=== PATIENT | female | born 1945 | race African-American/Black ===

== ENCOUNTER 2017-04-10 15:03 | Inpatient (IN) | payer OTHER ==
[2017-04-10 15:12] VITALS: BMI 49.4
[2017-04-10] MEDS ORDERED: ACETAMINOPHEN 1000 MG/100 ML VIAL (NON FORMULARY) IVPB ONE (15:31)
[2017-04-10] MEDS ORDERED: ACETAMINOPHEN INJECTION 100 ML IVPB ONE (15:32)
[2017-04-10 15:45] LABS: HEMOGLOBIN 13.3 GM/dL (10.7-15.3); MCH 29.9 pg (25.7-33.7); MCHC 32.4 g/dl (32.0-36.0); MEAN CELL VOLUME 92.1 fl (80-96); MEAN PLT VOLUME 9.3 fl (7.5-11.1); PLATELET COUNT 188 K/MM3 (134-434); RBC 4.45 M/mm3 (3.60-5.2); WHITE BLOOD COUNT 28.4 K/mm3 (4.0-10.0)
[2017-04-10 15:46] LABS: VENOUS PC02 40.9 mmHg (38-52); VENOUS PH 7.45 (7.32-7.42); VENOUS PO2 31.9 mmHg (28-48)
[2017-04-10 16:10] LABS: CHLORIDE 100 mmol/L (98-107); POTASSIUM 3.7 mmol/L (3.5-5.1); SODIUM 139 mmol/L (136-145)
[2017-04-10 16:16] LABS: INR 2.17 (0.82-1.09); PROTHROMBIN TIME (PATIENT) 24.5 SEC (9.98-11.88)
[2017-04-10 16:19] LABS: ACTIVATED PTT 40.4 SECONDS (26.9-34.4)
[2017-04-10] MEDS ORDERED: PIPERACILLIN/TAZOB 4.5 GM/100 ML PRE-DOCKED IVPB ONE (16:19)
[2017-04-10] MEDS ORDERED: VANCOMYCIN 1,000 MG in DEXTROSE 5%-WATER - 250 ML IVPB ONE (16:19)
[2017-04-10 16:20] LABS: ALBUMIN 3.9 g/dl (3.4-5.0); ALK PHOS 87 U/L (45-117); ANION GAP 12 (8-16); BILIRUBIN,TOTAL 0.7 mg/dL (0.2-1.0); BLOOD UREA NITROGEN 20 mg/dL (7-18); CALCIUM 9.5 mg/dL (8.5-10.1); CO2 27 mmol/L (21-32); CREATININE 1.6 mg/dL (0.55-1.02); GLUCOSE,RANDOM 143 mg/dL (74-106); SGOT/AST 22 U/L (15-37); SGPT/ALT 24 U/L (12-78); TOT PROT 8.5 g/dl (6.4-8.2)
--- NOTE | 2017-04-10 17:00 | PDOC ---
Attending Attestation - Resident Resident Name: GustavoDhaval - ED Attending Attestation I have performed the following: I have examined & evaluated the patient, The case was reviewed & discussed with the resident, I agree w/resident's findings & plan, Exceptions are as noted - Physicial Exam PE: 04/10/17 18:21 Patient is somnolent, but easily arousable, morbidly obese, nontoxic appearing, febrile; nc, atr perrla, eomi + b/l ronchi sft, nt, nd +2 pit edema b/l, with multiple hyperpigmented lessions c/w kelloids - Medical Decision Making 04/10/17 18:23 Patient is a morbidly obese 71-year-old female with multiple Shahriar's who presents to the ER with lethargy associated with high fever. Patient's febrile and tachycardic on initial evaluation, normotensive, without meningeal signs. Patient is somnolent but easily arousable, patient is alert and oriented to self and place. Differential diagnoses includes sepsis versus influenza versus polypharmacy. Blood and urine cultures are been obtained. IV sediment has been administered. Chest x-ray reveals bilateral congestion which may represent atypical pneumonia. Patient is noted to be influenza be positive. CBC reveals significant leukocytosis of 28,000. Urinalysis reveals 18 wbc's per high-power field and is nitrite positive. Tamiflu and broad-spectrum antibiotics have been administered. Will admit for further evaluation and treatment. <Anjum Cazares - Last Filed: 04/10/17 18:20> - HPI HPI: 04/10/17 17:37 The patient is a 71 year old female with history of hypertension, hypothyroidism , atrial fibrillation, morbid obesity, who presents to the ED with her daughter complaining of fever, shortness of breath, and cough that began last night. She was noted to be generally weak and slow to answer questions, prompting her ED visit. Remainder of history limited secondary to clinical condition. Temperature was noted to be 105 on ED arrival. Selected Entries 04/10/17 15:09 Temperature 104.5 F H Pulse Rate 105 H Respiratory 20 Rate Blood Pressure 159/81 O2 Sat by Pulse 99 Oximetry (%) <Arlen Novak - Last Filed: 04/10/17 19:09>
[2017-04-10 17:06] LABS: PLATELET ESTIMATE ADEQUATE
[2017-04-10] MEDS ORDERED: VANCOMYCIN 1 GRAM (PRE-DOCKED) 1,000 MG/250 ML BAG IVPB ONE (17:06)
[2017-04-10] MEDS ORDERED: PIPERACILLIN/TAZOB 4.5 GM 4.5 GM/100 ML BAG IVPB ONE (17:06)
[2017-04-10] MEDS ORDERED: VANCOMYCIN IVPB ONE (17:27)
[2017-04-10] MEDS ORDERED: WATER IVPB ONE (17:27)
[2017-04-10] MEDS ORDERED: DEXTROSE 5% IVPB ONE (17:27)
[2017-04-10 17:50] LABS: URINE APPEARANCE SLCLOUDY; URINE BILIRUBIN NEGATIVE (NEGATIVE); URINE BLOOD 1+ (NEGATIVE); URINE COLOR YELLOW; URINE GLUCOSE (UA) NEGATIVE (NEGATIVE); URINE KETONE TRACE (NEGATIVE); URINE NITRITE POSITIVE (NEGATIVE)
[2017-04-10 18:07] LABS: URINE LEUK ESTERASE 1+ (NEGATIVE); URINE PROTEIN 1+ (NEGATIVE)
[2017-04-10 18:12] LABS: EPI CELLS RARE /HPF (FEW); URINE BACTERIA FEW /hpf (NONE SEEN); URINE MUCUS RARE
--- NOTE | 2017-04-10 18:22 | HP ---
Admitting History and Physical - Admission Chief Complaint: fever, weakness History of Present Illness: The patient is a 71 year old female with pmhx, HTN, Hypothyroid, A fib, morbid obesity who presented to the ED with daughter with complaints of fever, non productive cough since last night. Pt was unable to get off toilet and appeared weak per daughter as well as red in the face. Denies chest pain, sob. Pt states she feels sick, achy, and tired. ED temp: 105, IV tylenol given + Influenza B History Source: Patient, Family Member, Medical Record Limitations to Obtaining History: No Limitations - Past Medical History Cardiovascular: Yes: AFIB, HTN Endocrine: Yes: Hypothyroidism - Smoking History Smoking history: Former smoker Have you smoked in the past 12 months: No - Alcohol/Substance Use Hx Alcohol Use: No - Social History Usual Living Arrangement: Yes: With Child Home Medications - Allergies Allergies/Adverse Reactions: Allergies Allergy/AdvReac Type Severity Reaction Status Date / Time No Known Allergies Allergy Verified 04/10/17 15:09 - Home Medications Home Medications: Ambulatory Orders Amlodipine Besylate 5 mg PO DAILY 04/10/17 Levothyroxine Sodium [Synthroid] 200 mcg PO DAILY 04/10/17 Liothyronine Sodium [Cytomel] 5 mcg PO DAILY 04/10/17 Metoprolol Succinate [Toprol Xl] 25 mg PO DAILY 04/10/17 Rivaroxaban [Xarelto -] 20 mg PO HS 04/10/17 Review of Systems - Review of Systems Constitutional: reports: Fever, Weakness Eyes: reports: No Symptoms HENT: reports: No Symptoms Neck: reports: No Symptoms Cardiovascular: reports: No Symptoms Respiratory: reports: Cough Gastrointestinal: reports: No Symptoms Genitourinary: reports: No Symptoms Musculoskeletal: reports: No Symptoms Integumentary: reports: No Symptoms Neurological: reports: Other (somnolent) Endocrine: reports: No Symptoms Hematology/Lymphatic: reports: No Symptoms Psychiatric: reports: No Symptoms Physical Examination Vital Signs: Vital Signs Temperature 104.5 F H 04/10/17 15:42 Pulse Rate 105 H 04/10/17 15:42 Respiratory Rate 22 04/10/17 15:42 Blood Pressure 159/81 04/10/17 15:09 O2 Sat by Pulse Oximetry (%) 100 04/10/17 15:42 Constitutional: Yes: Well Nourished Eyes: Yes: Conjunctiva Clear HENT: Yes: Atraumatic Neck: Yes: Supple Cardiovascular: Yes: Pulse Irregular, Murmur, S1, S2 Respiratory: Yes: Diminished, On Nasal O2 Gastrointestinal: Yes: Normal Bowel Sounds, Soft, Abdomen, Obese Renal/: Yes: WNL Extremities: Yes: WNL Edema: Yes Edema: LLE: 1+, RLE: 1+ Integumentary: Yes: Venous Stasis Changes (bilateral) Neurological: Yes: Alert, Oriented, Cran Nerves II-XII Intact, Weakness Labs: CBC, BMP 04/10/17 15:35 04/10/17 15:41 Imaging - Results Chest X-ray: Report Reviewed, Image Reviewed (cardiomegaly, ? mild congestion) Problem List - Problems (1) Afib Code(s): I48.91 - UNSPECIFIED ATRIAL FIBRILLATION (2) HTN (hypertension) Code(s): I10 - ESSENTIAL (PRIMARY) HYPERTENSION (3) Hypothyroid Code(s): E03.9 - HYPOTHYROIDISM, UNSPECIFIED (4) Influenza B Code(s): J10.1 - FLU DUE TO OTH IDENT INFLUENZA VIRUS W OTH RESP MANIFEST (5) Sepsis Code(s): A41.9 - SEPSIS, UNSPECIFIED ORGANISM Assessment/Plan Assessment: 71 year old female admitted with fever, influenza b Plan: 1. Sepsis due to influzena b +/- underlying pna/UTI - Given zosyn in ED - Started tamiflu - Continue IVF - ID consulted 2. GEMMA - Continue IVF 3. A fib - Continue xaralto - metoprolol 25mg daily 4. Hypothyroid - Synthroid - Cytomel 5. DVT - On AC 6. HTN - Amlodipine 5mg daily Visit type - Emergency Visit Emergency Visit: Yes Care time: The patient presented to the Emergency Department on the above date and was hospitalized for further evaluation of their emergent condition. - New Patient This patient is new to me today: Yes Date on this admission: 04/10/17 - Critical Care Critical Care patient: No
--- NOTE | 2017-04-10 18:34 | PDOC ---
History of Present Illness - General Chief Complaint: SIRS, Suspected/Possible Stated Complaint: SICK/FEVER Time Seen by Provider: 04/10/17 15:35 History Source: Patient, Family Exam Limitations: Clinical Condition - History of Present Illness Initial Comments: 04/10/17 18:28 The patient is a 71F with a PMH of CHF, a-fib on xarelto, and hypothyroidism who presented with AMS and SOB. The patient is with her sister who provides the history. The sister states that the patient was well last night, then today was found at 1400 being altered, A&Ox0, and in respiratory distress. The patient had no complaints the night before and currently cannot provide any history 2/2 clinical condition. Past History - Past Medical History Allergies/Adverse Reactions: Allergies Allergy/AdvReac Type Severity Reaction Status Date / Time No Known Allergies Allergy Verified 04/10/17 15:09 Home Medications: Ambulatory Orders Amlodipine Besylate 5 mg PO DAILY 04/10/17 Levothyroxine Sodium [Synthroid] 200 mcg PO DAILY 04/10/17 Liothyronine Sodium [Cytomel] 5 mcg PO DAILY 04/10/17 Metoprolol Succinate [Toprol Xl] 25 mg PO DAILY 04/10/17 Rivaroxaban [Xarelto -] 20 mg PO HS 04/10/17 Cardiac Disorders: Yes (afib) COPD: No HTN: Yes Thyroid Disease: Yes (hypo) - Suicide/Smoking/Psychosocial Hx Smoking History: Former smoker Have you smoked in the past 12 months: No Information on smoking cessation initiated: No Hx Alcohol Use: No Drug/Substance Use Hx: No Substance Use Type: None Review of Systems - Review of Systems Able to Perform ROS?: No (clinical condition) Is the patient limited Estonian proficient: No *Physical Exam - Vital Signs Last Vital Signs Temp Pulse Resp BP Pulse Ox 104.5 F H 105 H 22 159/81 100 04/10/17 15:42 04/10/17 15:42 04/10/17 15:42 04/10/17 15:09 04/10/17 15:42 - Physical Exam Comments: 04/10/17 19:10 GENERAL: Well developed, morbidly obese. Not awake, unresponsive but mumbling. No in respiratory distress. HEENT: Normocephalic, atraumatic. Dry mucous membranes. No conjunctival pallor. Sclera are non-icteric. NECK: Supple. Full ROM. No JVD. CARDIOVASCULAR: Regular rate and rhythm. No murmurs, rubs, or gallops. PULMONARY: No evidence of respiratory distress. Coarse lung sounds b/l, only anterior lung gonzales auscultated 2/2 pt unresponsiveness. ABDOMINAL: Soft. Non-tender. Non-distended. No rebound or guarding. MUSCULOSKELETAL: Normal range of motion at all joints. EXTREMITIES: No cyanosis. No clubbing. 4+ edema in b/l LE. No calf tenderness. SKIN: Warm and dry. Normal capillary refill. No rashes. No jaundice. NEUROLOGICAL: Lethargic, not responding to questions. PSYCHIATRIC: Not cooperating 2/2 unresponsiveness. Heart Score/ECG Review #1 ECG reviewed & interpreted by me at: 15:35 General ECG Interpretation: Sinus Rhythm, Normal Rate, Normal Intervals, No acute ischemic changes Compared to previous ECG there are: Previous ECG unavail 04/10/17 19:18 Sinus tach 103 RI 160 QRS 88 QTc 455 No ischemic changes noted except for V6 ED Treatment Course - LABORATORY CBC & Chemistry Diagram: 04/10/17 15:35 04/10/17 15:41 - ADDITIONAL ORDERS Additional order review: Laboratory Results 04/10/17 04/10/17 04/10/17 17:40 16:40 15:41 PT with INR INR PTT (Actin FS) VBG pH POC VBG pCO2 POC VBG pO2 Mixed VBG HCO3 Sodium Potassium Chloride Carbon Dioxide Anion Gap BUN Creatinine Creat Clearance w eGFR Random Glucose Lactic Acid 2.0 Calcium Total Bilirubin AST ALT Alkaline Phosphatase Creatine Kinase Creatine Kinase Index CK-MB (CK-2) Troponin I Total Protein Albumin Urine Color Yellow Urine Appearance Slcloudy Urine pH 6.0 Ur Specific [place] 1.023 Urine Protein 1+ H Urine Glucose (UA) Negative Urine Ketones Trace H Urine Blood 1+ H Urine Nitrite Positive Urine Bilirubin Negative Urine Urobilinogen 2.0 H Ur Leukocyte Esterase 1+ H Urine WBC (Auto) 18 Urine RBC (Auto) 4 Ur Epithelial Cells Rare Urine Bacteria Few Urine Mucus Rare Blood Type O POSITIVE Antibody Screen Negative 04/10/17 04/10/17 04/10/17 15:41 15:41 15:41 PT with INR 24.50 H INR 2.17 H PTT (Actin FS) 40.4 H VBG pH 7.45 H POC VBG pCO2 40.9 POC VBG pO2 31.9 Mixed VBG HCO3 27.7 H Sodium 139 Potassium 3.7 Chloride 100 Carbon Dioxide 27 Anion Gap 12 BUN 20 H Creatinine 1.6 H Creat Clearance w eGFR 31.60 Random Glucose 143 H Lactic Acid Calcium 9.5 Total Bilirubin 0.7 AST 22 ALT 24 Alkaline Phosphatase 87 Creatine Kinase 212 H Creatine Kinase Index 0.4 CK-MB (CK-2) < 1.000 Troponin I < 0.02 Total Protein 8.5 H Albumin 3.9 Urine Color Urine Appearance Urine pH Ur Specific [place] Urine Protein Urine Glucose (UA) Urine Ketones Urine Blood Urine Nitrite Urine Bilirubin Urine Urobilinogen Ur Leukocyte Esterase Urine WBC (Auto) Urine RBC (Auto) Ur Epithelial Cells Urine Bacteria Urine Mucus Blood Type Antibody Screen 04/10/17 15:41 Influenza Types A,B Antigen (DEJA) - Final Nasopharyngeal Swab - Final 04/10/17 15:35 RBC 4.45 MCV 92.1 MCHC 32.4 RDW 14.0 MPV 9.3 Neutrophils % No Result Required. Lymphocytes % No Result Required. - Medications Given in the ED: ED Medications Discontinued Medications Generic Name Dose Route Start Last Admin Trade Name Freq PRN Reason Stop Dose Admin Acetaminophen 1,000 mg 04/10/17 15:31 04/10/17 15:43 Ofirmev Injection - IVPB 04/10/17 15:32 1,000 mg ONCE ONE Administration Vancomycin HCl 1,000 mg/ 250 mls @ 250 mls/hr 04/10/17 16:19 04/10/17 17:44 Dextrose IVPB 04/10/17 17:18 250 mls/hr ONCE ONE Administration Protocol Vancomycin HCl 830 mg/ 250 mls @ 250 mls/hr 04/10/17 17:27 04/10/17 17:44 Dextrose IVPB 04/10/17 18:26 Not Given ONCE ONE Protocol Piperacillin Sod/Tazobactam Sod 4.5 gm 04/10/17 16:19 04/10/17 17:44 Zosyn 4.5gm Ivpb (Pre-Docked) IVPB 04/10/17 16:20 4.5 gm ONCE ONE Administration Medical Decision Making - Medical Decision Making 04/10/17 19:20 The pt is a 71F who presented with AMS and fever with hx of CHF. Flu B positive with coarse breath sounds 2/2 to possible PNA on flu. Pt is severe sepsis. Septic protocol being followed. CXR showing cardiomegaly with possible mild congestion. Labs significant for increased WBC count 28.4. UA indicating UTI. Broad spectrum abx with tamiflu and 1 g IV tylenol given for fever control. Pt admitted to hospitalist for tele bed. Improved mentation on rexamination. Pt much more alert and can express her concerns to me that she is not feeling well, but is feeling better than when she first came in. Pt endorsed to hospitalist team. *DC/Admit/Observation/Transfer Diagnosis at time of Disposition: Severe sepsis - Discharge Dispostion Condition at time of disposition: Guarded Admit: Yes - Referrals - Patient Instructions - Post Discharge Activity
[2017-04-10] MEDS ORDERED: OSELTAMIVIR PHOSPHATE 75 MG CAPSULE ONE (20:53)
[2017-04-10] MEDS: SODIUM CHLORIDE 1,000 ML IV SCH (21:04)
[2017-04-10] MEDS: ACETAMINOPHEN 325 MG TABLET (FP) PO PRN (21:06)
[2017-04-10] MEDS: OSELTAMIVIR PHOSPHATE 75 MG CAPSULE PO SCH (21:06)
[2017-04-10] MEDS ORDERED: ACETAMINOPHEN 325 MG TABLET (FP) ONE (21:10)
[2017-04-10] MEDS ORDERED: SODIUM CHLORIDE 1,000 ML IV STA (22:09)
[2017-04-10] MEDS: RIVAROXABAN 20 MG TABLET PO SCH (22:49)
[2017-04-11] MEDS ORDERED: PIPERACILLIN/TAZOB 2.25 GM 2.25 GM/50 ML BAG IVPB SCH (02:00)
[2017-04-11] MEDS ORDERED: ACETAMINOPHEN 325 MG TABLET (FP) ONE (03:01)
[2017-04-11] MEDS: PIPERACILLIN/TAZOB 2.25 GM 2.25 GM in DEXTROSE 5%-WATER - 100 ML IVPB SCH ×4 (04:06→20:36)
[2017-04-11] MEDS ORDERED: ACETAMINOPHEN 500 MG TABLET (FP) PO ONE (04:07)
[2017-04-11 06:34] LABS: BASO % 0.1 % (0-2.0); HEMATOCRIT 35.5 % (32.4-45.2); HEMOGLOBIN 11.7 GM/dL (10.7-15.3); LYMPH % 6.1 % (8-40); MCH 30.6 pg (25.7-33.7); MEAN CELL VOLUME 92.9 fl (80-96); MEAN PLT VOLUME 9.7 fl (7.5-11.1); MONO % 6.5 % (3.8-10.2); NEUT % 87.3 % (42.8-82.8); PLATELET COUNT 172 K/MM3 (134-434); RBC 3.82 M/mm3 (3.60-5.2); RDW 14.4 % (11.6-15.6); WHITE BLOOD COUNT 19.4 K/mm3 (4.0-10.0)
[2017-04-11] MEDS ORDERED: LEVOTHYROXINE NA 200 MCG TABLET PO SCH (07:00)
[2017-04-11] MEDS ORDERED: LEVOTHYROXINE NA 25 MCG TABLET (FP) ONE (07:03)
[2017-04-11 07:32] LABS: ALBUMIN 2.9 g/dl (3.4-5.0); ANION GAP 8 (8-16); BLOOD UREA NITROGEN 28 mg/dL (7-18); CALCIUM 7.9 mg/dL (8.5-10.1); CHLORIDE 102 mmol/L (98-107); CO2 27 mmol/L (21-32); CREATININE 1.9 mg/dL (0.55-1.02); GLUCOSE,RANDOM 114 mg/dL (74-106); PHOSPHOROUS 3.7 mg/dL (2.5-4.9); POTASSIUM 3.3 mmol/L (3.5-5.1); SGOT/AST 20 U/L (15-37); SODIUM 137 mmol/L (136-145)
[2017-04-11 07:42] LABS: ALK PHOS 70 U/L (45-117); BILIRUBIN,TOTAL 0.7 mg/dL (0.2-1.0); SGPT/ALT 27 U/L (12-78); TOT PROT 6.6 g/dl (6.4-8.2)
[2017-04-11] MEDS ORDERED: amLODIPine BESYLATE 5 MG TABLET (FP) PO SCH (10:00)
[2017-04-11] MEDS ORDERED: metoPROLOL SUCCINATE 25 MG TAB.SR.24H (FP) PO SCH (10:00)
[2017-04-11] MEDS ORDERED: amLODIPine BESYLATE 5 MG TABLET (FP) ONE (10:03)
[2017-04-11] MEDS ORDERED: POTASSIUM CHLORIDE ORAL LIQUID 20 MEQ/15 ML PO ONE (10:22)
[2017-04-11] MEDS: LIOTHYRONINE SODIUM 5 MCG TABLET PO SCH (10:24)
[2017-04-11] MEDS: OSELTAMIVIR PHOSPHATE 75 MG CAPSULE PO SCH ×2 (11:00→21:02)
--- NOTE | 2017-04-11 11:31 | PN ---
Physical Exam: SUBJECTIVE: Patient seen and examined in ED. She appears much improved. Eating, conversing and very alert. Denies chills, body aches. Does remember having R sided back pain in days preceding last nights admission. Events: - LA resolved s/p bolus - Fever tmax 101.7 OBJECTIVE: Vital Signs Period Temp Pulse Resp BP Sys/Ray Pulse Ox Last 24 Hr 97.6 F-104.5 F 66-105 15-27 107-159/53-94 95-100 PE Neuro: alert, awake, cn 2-12intact Pulm: basilar crackles L>R + NC CV: s1 s2 rrr + 3/6 systolic murmur Abd: s nt nd + bs Ext: lower ext keloids, healed ulcerations Laboratory Results - last 24 hr 04/11/17 04/11/17 04/11/17 01:13 06:00 06:00 WBC 19.4 H D RBC 3.82 Hgb 11.7 D Hct 35.5 MCV 92.9 MCH 30.6 MCHC 33.0 RDW 14.4 Plt Count 172 MPV 9.7 Total Counted Neutrophils % 87.3 H Neutrophils % (Manual) Band Neutrophils % Lymphocytes % 6.1 L Lymphocytes % (Manual) Monocytes % 6.5 Monocytes % (Manual) Eosinophils % 0.0 Basophils % 0.1 Platelet Estimate PT with INR INR PTT (Actin FS) VBG pH POC VBG pCO2 POC VBG pO2 Mixed VBG HCO3 Sodium 137 Potassium 3.3 L Chloride 102 Carbon Dioxide 27 Anion Gap 8 BUN 28 H Creatinine 1.9 H Creat Clearance w eGFR 25.91 Random Glucose 114 H Lactic Acid 0.8 Calcium 7.9 L Phosphorus 3.7 Magnesium 2.0 Total Bilirubin 0.7 AST 20 ALT 27 Alkaline Phosphatase 70 Creatine Kinase Creatine Kinase Index CK-MB (CK-2) Troponin I B-Natriuretic Peptide Total Protein 6.6 Albumin 2.9 L Urine Color Urine Appearance Urine pH Ur Specific [place] Urine Protein Urine Glucose (UA) Urine Ketones Urine Blood Urine Nitrite Urine Bilirubin Urine Urobilinogen Ur Leukocyte Esterase Urine WBC (Auto) Urine RBC (Auto) Ur Epithelial Cells Urine Bacteria Urine Mucus Blood Type Antibody Screen 04/10/17 04/11/17 19:00 01:13 Lactic Acid 4.3 H* 0.8 Active Medications Generic Name Dose Route Start Last Admin Trade Name Freq PRN Reason Stop Dose Admin Acetaminophen 650 mg 02/07/18 18:31 04/10/17 21:06 Tylenol - PO 650 mg Q4H PRN Administration PAIN OR FEVER Amlodipine Besylate 5 mg 04/11/17 10:00 Norvasc - PO DAILY ALYSSA Sodium Chloride 1,000 mls @ 100 mls/hr 04/10/17 18:45 04/10/17 21:04 Normal Saline - IV 100 mls/hr ASDIR ALYSSA Administration Piperacillin Sod/Tazobactam 100 mls @ 200 mls/hr 04/11/17 02:00 04/11/17 04: 06 Sod 2.25 gm/ Dextrose IVPB 200 mls/hr Q8H-IV ALYSSA Administration Levothyroxine Sodium 200 mcg 04/11/17 07:00 04/11/17 07:08 Synthroid - PO 200 mcg DAILY@0700 ALYSSA Administration Liothyronine Sodium 5 mcg 04/11/17 10:00 04/11/17 10:24 Cytomel - PO Not Given DAILY ALYSSA Metoprolol Succinate 25 mg 04/11/17 10:00 Toprol Xl - PO DAILY ALYSSA Oseltamivir Phosphate 75 mg 04/10/17 22:00 04/10/17 21:06 Tamiflu - PO 04/15/17 21:59 75 mg BID ALYSSA Administration Potassium Chloride 40 meq 04/11/17 10:22 Potassium Chloride Oral Liquid PO 04/11/17 10:23 ONCE ONE Rivaroxaban 20 mg 04/10/17 22:00 04/10/17 22:49 Xarelto - PO 20 mg HS ALYSSA Administration Microbiology 04/10/17 15:41 Nasopharyngeal Swab Influenza Types A,B Antigen (DEJA) - Final 04/10/17 15:41 Nasopharyngeal Swab - Final Assessment: 71 year old female admitted with fever, influenza b Plan: 1. Severe Sepsis due to influzena b +/- underlying pna/UTI - Pt met severe sepsis on admission, LA increased to 4.3 - Continue zosyn (renal dose) - x 1 doses vanco given in ED - Continue tamiflu course - Blood and urine cx pending - CXR negative for definite infiltrate - Continue IVF 2. Lactic acidosis - Resolved - Continue IVF 3. GEMMA - Cr rise, however possibly due to sepsis - Will obtain kidney us - UA with proteinuria - Discontinue ambriz 4. HTN - Hold amlodipine 5mg daily, resume tomorrow 5. A fib - Continue xaralto 20gmg HS - Hold metoprolol 25mg day today, resume tomorrow 6. Hypothyroid - Synthroid 200mcg daily - Cytomel 5mg daily 7. DVT - On AC Problem List - Problems (1) Afib Code(s): I48.91 - UNSPECIFIED ATRIAL FIBRILLATION (2) HTN (hypertension) Code(s): I10 - ESSENTIAL (PRIMARY) HYPERTENSION (3) Hypothyroid Code(s): E03.9 - HYPOTHYROIDISM, UNSPECIFIED (4) Influenza B Code(s): J10.1 - FLU DUE TO OTH IDENT INFLUENZA VIRUS W OTH RESP MANIFEST (5) Sepsis Code(s): A41.9 - SEPSIS, UNSPECIFIED ORGANISM Visit type - Emergency Visit Emergency Visit: Yes ED Registration Date: 04/10/17 Care time: The patient presented to the Emergency Department on the above date and was hospitalized for further evaluation of their emergent condition. - New Patient This patient is new to me today: No - Critical Care Critical Care patient: No
--- NOTE | 2017-04-11 12:06 | EKG ---
Test Reason : Blood Pressure : / mmHG Vent. Rate : 103 BPM Atrial Rate : 103 BPM P-R Int : 160 ms QRS Dur : 088 ms QT Int : 348 ms P-R-T Axes : 080 -03 096 degrees QTc Int : 455 ms SINUS TACHYCARDIA T WAVE ABNORMALITY, CONSIDER LATERAL ISCHEMIA ABNORMAL ECG WHEN COMPARED WITH ECG OF 10-APR-2017 15:08, NO SIGNIFICANT CHANGE WAS FOUND Confirmed by GAYLE BROTHERS, VALENTINA ([id number]) on 04/11/2017 12:06:32 PM Referred By: Confirmed By:VALENTINA ARAUJO MD
[2017-04-11] MEDS ORDERED: PIPERACILLIN/TAZOBACTAM 2.25 GM VIAL IVPB ONE (12:34)
[2017-04-11] MEDS ORDERED: POTASSIUM CHLORIDE ORAL LIQUID 20 MEQ/15 ML ONE (12:41)
--- NOTE | 2017-04-11 13:46 | CON.ID ---
Consult Consult Specialty:: infectious diseases Reason for Consultation:: weakness pna leukocytosis,flu - History of Present Illness Chief Complaint: weakness,lethargy cough History of Present Illness: 71 year old female with pmhx, HTN, Hypothyroid, A fib, morbid obesity who presented to the ED with daughter with complaints of fever, non productive cough since last night. according to the daughter patient was unable to get off toilet . Denies chest pain, sob. patient mentions that all the symptoms occurred suddenly according to the notes,patient was very sick yesterday,now the patient looks better still is sick apperaing on admission patients wbc was very high she was also flu positive she also came in wiht high lactic acid and renal failure - History Source History Provided By: Patient, Family Member Limitations to Obtaining History: No Limitations - Past Medical History Cardio/Vascular: Yes: AFIB, HTN Endocrine: Yes: Hypothyroidism - Alcohol/Substance Use Hx Alcohol Use: No - Smoking History Smoking history: Former smoker Have you smoked in the past 12 months: No Home Medications - Allergies Allergies/Adverse Reactions: Allergies Allergy/AdvReac Type Severity Reaction Status Date / Time No Known Allergies Allergy Verified 04/10/17 15:09 - Home Medications Home Medications: Ambulatory Orders Amlodipine Besylate 10 mg PO HS 04/10/17 Levothyroxine Sodium [Synthroid] 200 mcg PO DAILY 04/10/17 Liothyronine Sodium [Cytomel] 5 mcg PO DAILY 04/10/17 Metoprolol Succinate [Toprol Xl] 25 mg PO DAILY 04/10/17 Rivaroxaban [Xarelto -] 20 mg PO HS 04/10/17 Review of Systems - Review of Systems Constitutional: reports: Fever, Lethargy, Weakness Eyes: reports: No Symptoms HENT: reports: No Symptoms Neck: reports: No Symptoms Cardiovascular: reports: No Symptoms Respiratory: reports: Cough, SOB on Exertion Gastrointestinal: reports: No Symptoms Genitourinary: reports: No Symptoms Musculoskeletal: reports: No Symptoms Integumentary: reports: No Symptoms Neurological: reports: No Symptoms Endocrine: reports: No Symptoms Hematology/Lymphatic: reports: No Symptoms Psychiatric: reports: No Symptoms Physical Exam Vital Signs: Vital Signs Temperature 99.1 F 04/11/17 12:30 Pulse Rate 81 04/11/17 12:30 Respiratory Rate 16 04/11/17 12:30 Blood Pressure 147/64 04/11/17 12:30 O2 Sat by Pulse Oximetry (%) 100 04/11/17 12:30 Constitutional: Yes: No Distress, Calm, Obese Eyes: Yes: Conjunctiva Clear Neck: Yes: Supple, Trachea Midline Cardiovascular: Yes: Regular Rate and Rhythm Respiratory: Yes: Rhonchi, Other (crack;es) Gastrointestinal: Yes: Normal Bowel Sounds, Soft Musculoskeletal: Yes: WNL Extremities: Yes: WNL Neurological: Yes: Alert, Oriented Psychiatric: Yes: Alert, Oriented Labs: CBC, BMP 04/11/17 06:00 04/11/17 06:00 Imaging - Results Chest X-ray: Report Reviewed, Image Reviewed Assessment/Plan this patient with severe weakness and arf and influenz admitted with very high wbc after lookng at her imaging studies i am not worried about pna,but i do suspect some other infection giving rise to this high wbc leukocytosis fever weakness influenza b arf plan will start patient on abx await for all cx report hydration tamiflu isolation rest as per primary team
[2017-04-11] MEDS: ACETAMINOPHEN 325 MG TABLET (FP) PO PRN (19:53)
[2017-04-11] MEDS: SODIUM CHLORIDE 1,000 ML IV SCH (19:53)
[2017-04-11] MEDS: RIVAROXABAN 20 MG TABLET PO SCH (21:52)
[2017-04-12] MEDS: PIPERACILLIN/TAZOB 2.25 GM 2.25 GM in DEXTROSE 5%-WATER - 100 ML IVPB SCH ×3 (02:35→17:36)
[2017-04-12] MEDS: LEVOTHYROXINE NA 100 MCG TABLET (FP) PO SCH (06:20)
[2017-04-12 08:49] LABS: BASO % 0.2 % (0-2.0); EOS % 0.3 % (0-4.5); HEMATOCRIT 35.6 % (32.4-45.2); HEMOGLOBIN 11.2 GM/dL (10.7-15.3); LYMPH % 9.9 % (8-40); MCH 29.5 pg (25.7-33.7); MCHC 31.5 g/dl (32.0-36.0); MEAN CELL VOLUME 93.7 fl (80-96); MEAN PLT VOLUME 9.4 fl (7.5-11.1); MONO % 7.9 % (3.8-10.2); NEUT % 81.7 % (42.8-82.8); PLATELET COUNT 158 K/MM3 (134-434); RDW 14.5 % (11.6-15.6); WHITE BLOOD COUNT 18.5 K/mm3 (4.0-10.0)
[2017-04-12] MEDS: SODIUM CHLORIDE 1,000 ML IV SCH ×2 (09:00→10:34)
[2017-04-12 09:06] LABS: ANION GAP 8 (8-16); BLOOD UREA NITROGEN 16 mg/dL (7-18); CALCIUM 8.8 mg/dL (8.5-10.1); CHLORIDE 103 mmol/L (98-107); CO2 29 mmol/L (21-32); CREATININE 1.2 mg/dL (0.55-1.02); GLUCOSE,RANDOM 113 mg/dL (74-106); POTASSIUM 3.8 mmol/L (3.5-5.1); SODIUM 140 mmol/L (136-145)
[2017-04-12] MEDS ORDERED: PT OWN MED DRAWER 7, Y5N ONE ×3 (10:25→20:55)
[2017-04-12] MEDS: OSELTAMIVIR PHOSPHATE 75 MG CAPSULE PO SCH ×2 (10:33→20:59)
[2017-04-12] MEDS: LIOTHYRONINE SODIUM 5 MCG TABLET PO SCH (10:39)
[2017-04-12] MEDS: POLYETHYLENE GLYCOL 3350 119 GM BTL PO SCH (14:06)
[2017-04-12] MEDS ORDERED: SODIUM CHLORIDE 1,000 ML IV SCH (14:28)
--- NOTE | 2017-04-12 14:30 | PN ---
Physical Exam: SUBJECTIVE: Patient seen and examined. She doesn't feel as well today, however better than admission. + BM OBJECTIVE: Vital Signs Period Temp Pulse Resp BP Sys/Ray Pulse Ox Last 24 Hr 98.4 F-101.2 F 63-84 18-20 131-139/66-81 96-99 PE Neuro: alert, awake, cn 2-12intact Pulm: L base diminished, R clear, scattered crackles CV: s1 s2 rrr + 3/6 systolic murmur Abd: s nt nd + bs Ext: lower ext keloids, healed ulcerations Laboratory Results - last 24 hr 04/12/17 04/12/17 07:30 07:30 WBC 18.5 H RBC 3.80 Hgb 11.2 Hct 35.6 MCV 93.7 MCH 29.5 MCHC 31.5 L RDW 14.5 Plt Count 158 MPV 9.4 Neutrophils % 81.7 Lymphocytes % 9.9 D Monocytes % 7.9 Eosinophils % 0.3 D Basophils % 0.2 Sodium 140 Potassium 3.8 Chloride 103 Carbon Dioxide 29 Anion Gap 8 BUN 16 Creatinine 1.2 H Random Glucose 113 H Calcium 8.8 Active Medications Generic Name Dose Route Start Last Admin Trade Name Freq PRN Reason Stop Dose Admin Acetaminophen 650 mg 04/10/17 18:31 04/11/17 19:53 Tylenol - PO 650 mg Q4H PRN Administration PAIN OR FEVER Amlodipine Besylate 5 mg 04/11/17 10:00 Norvasc - PO DAILY ALYSS[facility] Piperacillin Sod/Tazobactam 100 mls @ 200 mls/hr 04/11/17 02:00 04/12/17 10: 33 Sod 2.25 gm/ Dextrose IVPB 200 mls/hr Q8H-IV ALYSSA Administration Sodium Chloride 1,000 mls @ 75 mls/hr 04/12/17 08:33 04/12/17 10:34 Normal Saline - IV 75 mls/hr ASDIR AL[facility]SSA Administration Levothyroxine Sodium 200 mcg 04/12/17 07:00 04/12/17 06:20 Synthroid - PO 200 mcg DAILY@0700 ALYSSA Administration Liothyronine Sodium 5 mcg 04/11/17 10:00 04/12/17 10:39 Cytomel - PO Not Given DAILY ALYSSA Metoprolol Succinate 25 mg 04/11/17 10:00 Toprol Xl - PO DAILY ALYSSA Oseltamivir Phosphate 75 mg 04/10/17 22:00 04/12/17 10:33 Tamiflu - PO 04/15/17 21:59 75 mg BID ALYSSA Administration Polyethylene Glycol 17 gm 04/12/17 13:45 04/12/17 14:06 Miralax (For Daily Use) - PO Not Given DAILY ALYSSA Rivaroxaban 20 mg 04/10/17 22:00 04/11/17 21:52 Xarelto - PO 20 mg HS ALYSSA Administration Microbiology 04/10/17 17:30 Urine - Urine Clean Catch Urine Culture - Preliminary Lactose Fermenting Neg Bacilli 04/10/17 15:35 Blood - Peripheral Venous Blood Culture - Preliminary NO GROWTH OBTAINED AFTER 24 HOURS, INCUBATION TO CONTINUE FOR 4 DAYS. 04/10/17 15:35 Blood - Peripheral Venous Blood Culture - Preliminary NO GROWTH OBTAINED AFTER 24 HOURS, INCUBATION TO CONTINUE FOR 4 DAYS. 04/10/17 15:41 Nasopharyngeal Swab Influenza Types A,B Antigen (DEJA) - Final 04/10/17 15:41 Nasopharyngeal Swab - Final Assessment: 71 year old female admitted with fever, influenza b Plan: 1. Severe Sepsis due to influenza b +/- underlying pna/UTI - Continue zosyn (renal dose) - Continue tamiflu course - BC NGTD - Urine cx pending 2. Lactic acidosis - Resolved 3. GEMMA - Cr improved - Continue IVF, can stop tomorrow - Kidney us reviewed - UA with proteinuria 4. HTN - Resume amlodipine 5mg daily 5. A fib - Xaralto 20mg HS - Resume metoprolol 25mg day today 6. Hypothyroid - Synthroid 200mcg daily - Cytomel 5mg daily 7. DVT - On AC Problem List - Problems (1) Afib Code(s): I48.91 - UNSPECIFIED ATRIAL FIBRILLATION (2) HTN (hypertension) Code(s): I10 - ESSENTIAL (PRIMARY) HYPERTENSION (3) Hypothyroid Code(s): E03.9 - HYPOTHYROIDISM, UNSPECIFIED (4) Influenza B Code(s): J10.1 - FLU DUE TO OTH IDENT INFLUENZA VIRUS W OTH RESP MANIFEST (5) Sepsis Code(s): A41.9 - SEPSIS, UNSPECIFIED ORGANISM Visit type - Emergency Visit Emergency Visit: Yes ED Registration Date: 04/10/17 Care time: The patient presented to the Emergency Department on the above date and was hospitalized for further evaluation of their emergent condition. - New Patient This patient is new to me today: No - Critical Care Critical Care patient: No
--- NOTE | 2017-04-12 14:59 | PN ---
Progress Note, Physician History of Present Illness: still very weak calm wbc trending down - Current Medication List Current Medications: Active Medications Acetaminophen (Tylenol -) 650 mg PO Q4H PRN PRN Reason: PAIN OR FEVER Last Admin: 04/11/17 19:53 Dose: 650 mg Amlodipine Besylate (Norvasc -) 5 mg PO DAILY [facility] Piperacillin Sod/Tazobactam (Sod 2.25 gm/ Dextrose) 100 mls @ 200 mls/hr IVPB Q8H-IV [facility] Last Admin: 04/12/17 10:33 Dose: 200 mls/hr Sodium Chloride (Normal Saline -) 1,000 mls @ 60 mls/hr IV ASDIR [facility] Last Admin: 04/12/17 14:40 Dose: Not Given Levothyroxine Sodium (Synthroid -) 200 mcg PO DAILY@0700 [facility] Last Admin: 04/12/17 06:20 Dose: 200 mcg Liothyronine Sodium (Cytomel -) 5 mcg PO DAILY [facility] Last Admin: 04/12/17 10:39 Dose: Not Given Metoprolol Succinate (Toprol Xl -) 25 mg PO DAILY [facility] Oseltamivir Phosphate (Tamiflu -) 75 mg PO BID [facility] Stop: 04/15/17 21:59 Last Admin: 04/12/17 10:33 Dose: 75 mg Polyethylene Glycol (Miralax (For Daily Use) -) 17 gm PO DAILY [facility] Last Admin: 04/12/17 14:06 Dose: Not Given Rivaroxaban (Xarelto -) 20 mg PO HS [facility] Last Admin: 04/11/17 21:52 Dose: 20 mg - Objective Vital Signs: Vital Signs Temperature 98.4 F 04/12/17 10:00 Pulse Rate 83 04/12/17 08:00 Respiratory Rate 18 04/12/17 08:00 Blood Pressure 139/66 04/12/17 08:00 O2 Sat by Pulse Oximetry (%) 96 04/12/17 09:00 Constitutional: Yes: No Distress, Calm Cardiovascular: Yes: Regular Rate and Rhythm Respiratory: Yes: Regular, Other (crackles) Gastrointestinal: Yes: Normal Bowel Sounds, Soft Musculoskeletal: Yes: WNL Extremities: Yes: WNL Neurological: Yes: Alert, Oriented Psychiatric: Yes: Alert, Oriented Labs: CBC, BMP 04/12/17 07:30 04/12/17 07:30 INR, PTT INR 2.17 (0.82-1.09) H 04/10/17 15:41 Assessment/Plan patient also ahs uti leukocytosis fever weakness influenza b arf uti plan continue abx hydration await for identification of bacteria rest as per primary team
[2017-04-12] MEDS: amLODIPine BESYLATE 5 MG TABLET (FP) PO SCH (18:53)
[2017-04-12] MEDS: metoPROLOL SUCCINATE 25 MG TAB.SR.24H (FP) PO SCH (18:53)
[2017-04-12] MEDS: RIVAROXABAN 20 MG TABLET PO SCH (20:59)
[2017-04-13] MEDS ORDERED: PT OWN MED DRAWER 7, Y5N ONE ×4 (01:58→21:12)
[2017-04-13] MEDS: PIPERACILLIN/TAZOB 2.25 GM 2.25 GM in DEXTROSE 5%-WATER - 100 ML IVPB SCH ×2 (02:02→11:04)
[2017-04-13] MEDS: LIOTHYRONINE SODIUM 5 MCG TABLET PO SCH (06:26)
[2017-04-13] MEDS: LEVOTHYROXINE NA 100 MCG TABLET (FP) PO SCH (06:26)
[2017-04-13] MEDS: amLODIPine BESYLATE 5 MG TABLET (FP) PO SCH ×2 (11:00→11:04)
[2017-04-13] MEDS: POLYETHYLENE GLYCOL 3350 119 GM BTL PO SCH (11:04)
[2017-04-13] MEDS: OSELTAMIVIR PHOSPHATE 75 MG CAPSULE PO SCH ×2 (11:04→21:17)
[2017-04-13] MEDS: metoPROLOL SUCCINATE 25 MG TAB.SR.24H (FP) PO SCH (11:04)
--- NOTE | 2017-04-13 13:05 | PN ---
Progress Note, Physician History of Present Illness: still very weak no other complaints - Current Medication List Current Medications: Active Medications Acetaminophen (Tylenol -) 650 mg PO Q4H PRN PRN Reason: PAIN OR FEVER Last Admin: 04/11/17 19:53 Dose: 650 mg Amlodipine Besylate (Norvasc -) 5 mg PO DAILY [facility] Last Admin: 04/13/17 11:04 Dose: 5 mg Piperacillin Sod/Tazobactam (Sod 2.25 gm/ Dextrose) 100 mls @ 200 mls/hr IVPB Q8H-IV [facility] Last Admin: 04/13/17 11:04 Dose: 200 mls/hr Sodium Chloride (Normal Saline -) 1,000 mls @ 60 mls/hr IV ASDIR [facility] Last Admin: 04/12/17 14:40 Dose: Not Given Levothyroxine Sodium (Synthroid -) 200 mcg PO DAILY@0700 [facility] Last Admin: 04/13/17 06:26 Dose: 200 mcg Liothyronine Sodium (Cytomel -) 5 mcg PO DAILY@0700 [facility] Last Admin: 04/13/17 06:26 Dose: 5 mcg Metoprolol Succinate (Toprol Xl -) 25 mg PO DAILY [facility] Last Admin: 04/13/17 11:04 Dose: 25 mg Oseltamivir Phosphate (Tamiflu -) 75 mg PO BID [facility] Stop: 04/15/17 21:59 Last Admin: 04/13/17 11:04 Dose: 75 mg Polyethylene Glycol (Miralax (For Daily Use) -) 17 gm PO DAILY [facility] Last Admin: 04/13/17 11:04 Dose: Not Given Rivaroxaban (Xarelto -) 20 mg PO HS [facility] Last Admin: 04/12/17 20:59 Dose: 20 mg - Objective Vital Signs: Vital Signs Temperature 97.7 F 04/13/17 08:00 Pulse Rate 63 04/13/17 08:00 Respiratory Rate 18 04/13/17 08:00 Blood Pressure 138/53 04/13/17 08:00 O2 Sat by Pulse Oximetry (%) 96 04/12/17 21:00 Constitutional: Yes: No Distress, Calm, Obese HENT: Yes: Atraumatic Cardiovascular: Yes: Regular Rate and Rhythm Respiratory: Yes: Regular, Rhonchi Gastrointestinal: Yes: Normal Bowel Sounds, Soft Musculoskeletal: Yes: WNL Extremities: Yes: WNL Neurological: Yes: Alert, Oriented Psychiatric: Yes: Alert, Oriented Labs: CBC, BMP 04/12/17 07:30 04/12/17 07:30 INR, PTT INR 2.17 (0.82-1.09) H 04/10/17 15:41 Assessment/Plan patient also ahs uti leukocytosis fever weakness influenza b arf uti plan continue abx hydration bacteria noted changed abx to ceftriaxone follow cbc check cbc tomorrow
[2017-04-13] MEDS: CEFTRIAXONE 1 G/50 ML PREMIX 50 ML IVPB SCH (13:57)
--- NOTE | 2017-04-13 15:43 | PN ---
Physical Exam: SUBJECTIVE: Patient seen and examined at bedside. OBJECTIVE: Vital Signs Period Temp Pulse Resp BP Sys/Ray Pulse Ox Last 24 Hr 97.5 F-99.4 F 60-66 17-20 137-171/53-97 96-98 GENERAL: The patient is awake, alert, and fully oriented, in no acute distress. LUNGS: CTAB with forced expiratory wheezes. HEART: Regular rate and rhythm, S1, S2 with 3/6 systolic murmur. ABDOMEN: SNTND. +BS EXTREMITIES: 2+ pulses, warm, venous stasis changes, 2+ pedal edema. NEUROLOGICAL: Cranial nerves II through XII grossly intact. Normal speech, gait not observed. PSYCH: Normal mood, normal affect. SKIN: Venous stasis changes noted to BLE. Active Medications Generic Name Dose Route Start Last Admin Trade Name Freq PRN Reason Stop Dose Admin Acetaminophen 650 mg 04/10/17 18:31 04/11/17 19:53 Tylenol - PO 650 mg Q4H PRN Administration PAIN OR FEVER Amlodipine Besylate 5 mg 04/12/17 18:30 04/13/17 11:00 Norvasc - PO Not Given DAILY ALYSSA Sodium Chloride 1,000 mls @ 60 mls/hr 04/12/17 14:28 04/12/17 14:40 Normal Saline - IV Not Given ASDIR [facility] CEFTRIAXONE 1 G/50 ML PREMIX 50 mls @ 100 mls/hr 04/13/17 13:15 04/13/17 13: 57 Ceftriaxone 1 Gm-D5w Bag IVPB 100 mls/hr DAILY [facility] Administration Levothyroxine Sodium 200 mcg 04/12/17 07:00 04/13/17 06:26 Synthroid - PO 200 mcg DAILY@0700 AL[facility] Administration Liothyronine Sodium 5 mcg 04/13/17 07:00 04/13/17 06:26 Cytomel - PO 5 mcg DAILY@0700 AL[facility]SS[facility] Administration Metoprolol Succinate 25 mg 04/12/17 18:30 04/13/17 11:04 Toprol Xl - PO 25 mg DAILY AL[facility]SS[facility] Administration Oseltamivir Phosphate 75 mg 04/10/17 22:00 04/13/17 11:04 Tamiflu - PO 04/15/17 21:59 75 mg BID ALYSSA Administration Polyethylene Glycol 17 gm 04/12/17 13:45 04/13/17 11:04 Miralax (For Daily Use) - PO Not Given DAILY [facility] Rivaroxaban 20 mg 04/10/17 22:00 04/12/17 20:59 Xarelto - PO 20 mg HS ALYSSA Administration Microbiology 04/10/17 17:30 Urine - Urine Clean Catch Urine Culture - Final Escherichia Coli 04/10/17 15:35 Blood - Peripheral Venous Blood Culture - Preliminary NO GROWTH OBTAINED AFTER 48 HOURS, INCUBATION TO CONTINUE FOR 3 DAYS. 04/10/17 15:35 Blood - Peripheral Venous Blood Culture - Preliminary NO GROWTH OBTAINED AFTER 48 HOURS, INCUBATION TO CONTINUE FOR 3 DAYS. 04/10/17 15:41 Nasopharyngeal Swab Influenza Types A,B Antigen (DEJA) - Final 04/10/17 15:41 Nasopharyngeal Swab - Final Imaging: US/KIDNEY / RENAL US IMPRESSION: Partially exophytic right renal upper pole simple cyst measuring 4.1 cm. Both kidneys appear otherwise unremarkable without gross evidence of renal stones or hydronephrosis. Reported By: Dianne Rosen MD 04/11/17 [id number] ASSESSMENT/PLAN: A: 71 year old female admitted with fever, influenza b P: Severe Sepsis due to influenza b/UTI - Ceftriaxone - Tamiflu 75mg (day #3/5) - Blood cx as above - Urine cx as above - ID following Lactic acidosis - Resolved GEMMA - Cr improving - Kidney u/s as above - UA with proteinuria HTN - Resume amlodipine 5mg daily A fib - Xarelto 20mg HS - metoprolol 25mg day today - pt states she takes amiodorone- unsure of dose; will verify with her EP Hypothyroid - Synthroid 200mcg daily - Cytomel 5mg daily F/E/N - hold IVF - Low Na diet - replete prn PPX - Xarelto Dispo- requires continued treatment of her acute medical conditions Visit type - Emergency Visit Emergency Visit: Yes ED Registration Date: 04/10/17 Care time: The patient presented to the Emergency Department on the above date and was hospitalized for further evaluation of their emergent condition. - New Patient This patient is new to me today: Yes Date on this admission: 04/13/17 - Critical Care Critical Care patient: No
[2017-04-13] MEDS ORDERED: ACETAMINOPHEN 325 MG TABLET (FP) PO PRN (20:42)
[2017-04-13] MEDS ORDERED: amLODIPine BESYLATE 10 MG TABLET (FP) PO SCH (22:00)
[2017-04-13] MEDS ORDERED: RIVAROXABAN 20 MG TABLET PO SCH (22:00)
[2017-04-14] MEDS ORDERED: PT OWN MED DRAWER 7, Y5N ONE ×2 (06:30→09:54)
[2017-04-14] MEDS: LEVOTHYROXINE NA 100 MCG TABLET (FP) PO SCH (06:32)
[2017-04-14] MEDS: LIOTHYRONINE SODIUM 5 MCG TABLET PO SCH (06:33)
[2017-04-14 08:16] LABS: BASO % 0.5 % (0-2.0); EOS % 2.3 % (0-4.5); HEMOGLOBIN 11.5 GM/dL (10.7-15.3); LYMPH % 23.3 % (8-40); MCH 30.2 pg (25.7-33.7); MCHC 32.9 g/dl (32.0-36.0); MEAN CELL VOLUME 91.7 fl (80-96); MEAN PLT VOLUME 8.9 fl (7.5-11.1); MONO % 10.9 % (3.8-10.2); PLATELET COUNT 217 K/MM3 (134-434); RBC 3.82 M/mm3 (3.60-5.2); WHITE BLOOD COUNT 9.2 K/mm3 (4.0-10.0)
[2017-04-14 08:18] LABS: ALBUMIN 2.9 g/dl (3.4-5.0); ANION GAP 5 (8-16); BLOOD UREA NITROGEN 11 mg/dL (7-18); CALCIUM 8.9 mg/dL (8.5-10.1); CHLORIDE 104 mmol/L (98-107); CO2 31 mmol/L (21-32); GLUCOSE,RANDOM 95 mg/dL (74-106); POTASSIUM 3.6 mmol/L (3.5-5.1); SODIUM 140 mmol/L (136-145)
[2017-04-14 08:23] LABS: ALK PHOS 89 U/L (45-117); BILIRUBIN,TOTAL 0.3 mg/dL (0.2-1.0); SGOT/AST 15 U/L (15-37); SGPT/ALT 27 U/L (12-78); TOT PROT 7.3 g/dl (6.4-8.2)
[2017-04-14] MEDS: POLYETHYLENE GLYCOL 3350 119 GM BTL PO SCH (09:55)
[2017-04-14] MEDS: CEFTRIAXONE 1 G/50 ML PREMIX 50 ML IVPB SCH (09:55)
[2017-04-14] MEDS: metoPROLOL SUCCINATE 25 MG TAB.SR.24H (FP) PO SCH (09:56)
[2017-04-14] MEDS: OSELTAMIVIR PHOSPHATE 75 MG CAPSULE PO SCH (09:56)
--- NOTE | 2017-04-14 11:21 | PN ---
Progress Note, Physician History of Present Illness: doing much better still weak but feels much better completed tamiflu - Current Medication List Current Medications: Active Medications Acetaminophen (Tylenol -) 650 mg PO Q4H PRN PRN Reason: PAIN OR FEVER Last Admin: 04/14/17 09:59 Dose: 650 mg Amlodipine Besylate (Norvasc -) 10 mg PO HS [facility] Last Admin: 04/13/17 21:16 Dose: 10 mg CEFTRIAXONE 1 G/50 ML PREMIX (Ceftriaxone 1 Gm-D5w Bag) 50 mls @ 100 mls/hr IVPB DAILY [facility] Last Admin: 04/14/17 09:55 Dose: 100 mls/hr Levothyroxine Sodium (Synthroid -) 200 mcg PO DAILY@0700 [facility] Last Admin: 04/14/17 06:32 Dose: 200 mcg Liothyronine Sodium (Cytomel -) 5 mcg PO DAILY@0700 [facility] Last Admin: 04/14/17 06:33 Dose: 5 mcg Metoprolol Succinate (Toprol Xl -) 25 mg PO DAILY [facility] Last Admin: 04/14/17 09:56 Dose: 25 mg Oseltamivir Phosphate (Tamiflu -) 75 mg PO BID [facility] Stop: 04/15/17 21:59 Last Admin: 04/14/17 09:56 Dose: 75 mg Polyethylene Glycol (Miralax (For Daily Use) -) 17 gm PO DAILY [facility] Last Admin: 04/14/17 09:55 Dose: Not Given Rivaroxaban (Xarelto -) 20 mg PO [facility] Last Admin: 04/13/17 21:17 Dose: 20 mg - Objective Vital Signs: Vital Signs Temperature 98.1 F 04/14/17 09:00 Pulse Rate 58 L 04/14/17 09:00 Respiratory Rate 20 04/14/17 09:00 Blood Pressure 130/70 04/14/17 09:00 O2 Sat by Pulse Oximetry (%) 97 04/13/17 21:00 Constitutional: Yes: No Distress, Calm, Obese Eyes: Yes: Conjunctiva Clear Cardiovascular: Yes: S1, S2 Respiratory: Yes: Regular, Poor Air Entry Gastrointestinal: Yes: Normal Bowel Sounds, Soft Musculoskeletal: Yes: WNL Extremities: Yes: WNL Neurological: Yes: Alert, Oriented Psychiatric: Yes: Alert, Oriented Labs: CBC, BMP 04/14/17 07:35 04/14/17 07:35 INR, PTT INR 2.17 (0.82-1.09) H 04/10/17 15:41 Assessment/Plan patient also ahs uti leukocytosis fever weakness influenza b arf--resolved uti plan wbc normal cx result noted can change to oral augmentin continue augmentin for 4 more days wbc and cr normal
--- NOTE | 2017-04-14 13:18 | DS ---
Physical Exam: SUBJECTIVE: Patient seen and examined OBJECTIVE: Vital Signs Period Temp Pulse Resp BP Sys/Ray Pulse Ox Last 24 Hr 97.5 F-99.2 F 58-62 17-20 126-171/66-97 97 PHYSICAL EXAM GENERAL: The patient is awake, alert, and fully oriented, in no acute distress. HEAD: Normal with no signs of trauma. EYES: PERRL, extraocular movements intact, sclera anicteric, conjunctiva clear. ENT: Ears normal, nares patent, oropharynx clear without exudates, moist mucous membranes. NECK: Trachea midline, full range of motion, supple. LUNGS: Breath sounds equal, clear to auscultation bilaterally, no wheezes, no crackles, no accessory muscle use. HEART: Regular rate and rhythm, S1, S2 without murmur, rub or gallop. ABDOMEN: Soft, nontender, nondistended, normoactive bowel sounds, no guarding, no rebound, no hepatosplenomegaly, no masses. EXTREMITIES: 2+ pulses, warm, well-perfused, no edema. NEUROLOGICAL: Cranial nerves II through XII grossly intact. Normal speech, gait not observed. PSYCH: Normal mood, normal affect. SKIN: Warm, dry, normal turgor, no rashes or lesions noted. LABS Laboratory Results - last 24 hr 04/14/17 04/14/17 07:35 07:35 WBC 9.2 D RBC 3.82 Hgb 11.5 Hct 35.0 MCV 91.7 MCH 30.2 MCHC 32.9 RDW 14.0 Plt Count 217 D MPV 8.9 Neutrophils % 63.0 D Lymphocytes % 23.3 D Monocytes % 10.9 H Eosinophils % 2.3 D Basophils % 0.5 Sodium 140 Potassium 3.6 Chloride 104 Carbon Dioxide 31 Anion Gap 5 L BUN 11 Creatinine 1.0 Creat Clearance w eGFR 54.35 Random Glucose 95 Calcium 8.9 Total Bilirubin 0.3 D AST 15 ALT 27 Alkaline Phosphatase 89 Total Protein 7.3 Albumin 2.9 L HOSPITAL COURSE: Date of Admission:04/10/17 Date of Discharge: 04/14/17 Discharge Summary Reason For Visit: SEVERE SEPSIS Current Active Problems Afib (Acute) HTN (hypertension) (Acute) Hypothyroid (Acute) Influenza B (Acute) Sepsis (Acute) Severe sepsis (Acute) Condition: Guarded - Instructions - Home Medications Comprehensive Discharge Medication List: Ambulatory Orders Amlodipine Besylate 10 mg PO HS 04/10/17 Levothyroxine Sodium [Synthroid] 200 mcg PO DAILY 04/10/17 Liothyronine Sodium [Cytomel] 5 mcg PO DAILY 04/10/17 Metoprolol Succinate [Toprol Xl] 25 mg PO DAILY 04/10/17 Rivaroxaban [Xarelto -] 20 mg PO HS 04/10/17 Acetaminophen [Tylenol .Regular Strength -] 650 mg PO Q4H PRN tablet 04/14/17 Oseltamivir Phosphate [Tamiflu -] 75 mg PO BID #2 capsule 04/14/17
--- NOTE | 2017-04-14 13:26 | DS ---
Physical Exam: SUBJECTIVE: Patient seen and examined OBJECTIVE: Vital Signs Period Temp Pulse Resp BP Sys/Ray Pulse Ox Last 24 Hr 97.5 F-99.2 F 58-62 17-20 126-171/66-97 97 PHYSICAL EXAM GENERAL: The patient is awake, alert, and fully oriented, in no acute distress. HEAD: Normal with no signs of trauma. EYES: PERRL, extraocular movements intact, sclera anicteric, conjunctiva clear. ENT: Ears normal, nares patent, oropharynx clear without exudates, moist mucous membranes. NECK: Trachea midline, full range of motion, supple. LUNGS: Breath sounds equal, clear to auscultation bilaterally, no wheezes, no crackles, no accessory muscle use. HEART: Regular rate and rhythm, S1, S2 without murmur, rub or gallop. ABDOMEN: Soft, nontender, nondistended, normoactive bowel sounds, no guarding, no rebound, no hepatosplenomegaly, no masses. EXTREMITIES: 2+ pulses, warm, well-perfused, no edema. NEUROLOGICAL: Cranial nerves II through XII grossly intact. Normal speech, gait not observed. PSYCH: Normal mood, normal affect. SKIN: Warm, dry, normal turgor, no rashes or lesions noted. LABS Laboratory Results - last 24 hr 04/14/17 04/14/17 07:35 07:35 WBC 9.2 D RBC 3.82 Hgb 11.5 Hct 35.0 MCV 91.7 MCH 30.2 MCHC 32.9 RDW 14.0 Plt Count 217 D MPV 8.9 Neutrophils % 63.0 D Lymphocytes % 23.3 D Monocytes % 10.9 H Eosinophils % 2.3 D Basophils % 0.5 Sodium 140 Potassium 3.6 Chloride 104 Carbon Dioxide 31 Anion Gap 5 L BUN 11 Creatinine 1.0 Creat Clearance w eGFR 54.35 Random Glucose 95 Calcium 8.9 Total Bilirubin 0.3 D AST 15 ALT 27 Alkaline Phosphatase 89 Total Protein 7.3 Albumin 2.9 L HOSPITAL COURSE: Date of Admission:04/10/17 Date of Discharge: 04/14/17 Discharge Summary Reason For Visit: SEVERE SEPSIS Current Active Problems Afib (Acute) HTN (hypertension) (Acute) Hypothyroid (Acute) Influenza B (Acute) Sepsis (Acute) Severe sepsis (Acute) Condition: Guarded - Instructions Diet, Activity, Other Instructions: Take Augmentin twice a day until all pills are finished. Take Tamiflu twice a day until all pills are finished. Resume all previous medications. Eat a low sodium diet. Record your weight every day. If you gain more than 10 pounds- call your o and m supervisor for an appointment. Return to ER for shortness of breath, dizziness or any other concerns. Disposition: HOME - Home Medications Comprehensive Discharge Medication List: Ambulatory Orders Amlodipine Besylate 10 mg PO HS 04/10/17 Levothyroxine Sodium [Synthroid] 200 mcg PO DAILY 04/10/17 Liothyronine Sodium [Cytomel] 5 mcg PO DAILY 04/10/17 Metoprolol Succinate [Toprol Xl] 25 mg PO DAILY 04/10/17 Rivaroxaban [Xarelto -] 20 mg PO HS 04/10/17 Acetaminophen [Tylenol .Regular Strength -] 650 mg PO Q4H PRN tablet 04/14/17 Amox-Tr/K Cl [Augmentin - 875Mg Tablet] 1 tab PO BID #9 tablet 04/14/17 Oseltamivir Phosphate [Tamiflu -] 75 mg PO BID #2 capsule 04/14/17
[2017-04-14 14:25] VITALS: BP 125/50; PULSE 59; TEMP 98
== END 2017-04-14 15:11 | disposition home or self-care (01) | DRG 872 ==
LOC: JER 15:03 → JERBED 18:34 → J6S 04-11 18:50
PROVIDERS: ADMIT Internal Medicine; ATTEND Nurse Practitioner Family
DX: A41.89 Other specified sepsis (principal); Z68.42 Body mass index [BMI] 45.0-49.9, adult; E87.2 Acidosis; N17.9 Acute kidney failure, unspecified; N39.0 Urinary tract infection, site not specified; J10.1 Influenza due to other identified influenza virus with other respiratory manifestations; I10 Essential (primary) hypertension; R65.20 Severe sepsis without septic shock; N28.1 Cyst of kidney, acquired; E03.9 Hypothyroidism, unspecified; I48.91 Unspecified atrial fibrillation; E66.01 Morbid (severe) obesity due to excess calories; Z87.891 Personal history of nicotine dependence; D72.828 Other elevated white blood cell count; R50.9 Fever, unspecified
CPT/HCPCS: 36415; 71045-TC; 76775-TC; 80048; 80053; 81003; 81015; 82550; 82553; 82803; 83605; 83735; 83880; 84100; 84484; 85025; 85610; 85730; 86850; 86900; 86901; 87040; 87086; 87186; 87804; 93005; 93010; 97116-GP; 97161-GP; 99285-25

== ENCOUNTER 2018-09-24 18:58 | Inpatient (IN) | payer OTHER | END 2018-09-27 15:30 | disposition home or self-care (01) | LOC: J7W 09-25 03:19 → JER 18:58 → JERBED 22:25 → J7W 09-25 13:14 ==

== ENCOUNTER 2018-11-25 13:10 | Inpatient (IN) | payer OTHER ==
[2018-11-25] MEDS ORDERED: ALBUTEROL SO4 2.5/IPRATROPIUM 0.5 INH SOL 3 ML VIAL.NEB. NEB ONE ×3 (13:24→14:06)
[2018-11-25] MEDS ORDERED: ALBUTEROL SO4 0.083% IH SOL 2.5 MG/3 ML VIAL.NEB. NEB ONE (13:25)
[2018-11-25] MEDS ORDERED: NITROGLYCERIN SUBLINGUAL 1/150 0.4 MG TAB SL ONE (13:39)
[2018-11-25] MEDS ORDERED: NITROGLYCERIN SUBLINGUAL 1/150 0.4 MG TAB ONE (13:44)
[2018-11-25] MEDS ORDERED: dilTIAZem HCL 50 MG/10 ML - 10 ML VIAL IVPUSH ONE (14:07)
--- NOTE | 2018-11-25 14:07 | PDOC ---
History of Present Illness - General History Source: Patient Exam Limitations: No Limitations - History of Present Illness Initial Comments: 11/25/18 14:02 73F with a PMH of CHF, anemia, Afib (s/p 2 ablations, currently on xarelto), hypothyroid, PVD and CAD who presents to the ER with complaints of fever and SOB. The patient is with her daughter who helps provide the history. The daughter states that the patient was eating yesterday and "may" have "choked and vomited a little". She began to develop a fever last night. This morning, she woke up and felt very short of breath. She denies CP but admits to fever. Hx is limited 2/2 clinical condition. <Dhaval Chen - Last Filed: 11/25/18 16:27> <Jaye Ferguson - Last Filed: 11/27/18 10:16> - General Chief Complaint: Shortness of Breath Stated Complaint: Shortness of Breath Time Seen by Provider: 11/25/18 13:33 Past History - Past Medical History Anemia: Yes Asthma: No Cancer: No Cardiac Disorders: Yes (afib) CVA: No COPD: Yes CHF: Yes Dementia: No GI Disorders: No Disorders: No HTN: Yes Hypercholesterolemia: No Liver Disease: No Seizures: No Thyroid Disease: Yes (hypo) - Surgical History Abdominal Surgery: No Appendectomy: No Cardiac Surgery: No Cholecystectomy: No Lung Surgery: No Neurologic Surgery: No Orthopedic Surgery: (rt rotator cuff repair) - Psycho Social/Smoking Cessation Hx Smoking History: Former smoker Have you smoked in the past 12 months: No Hx Alcohol Use: No Drug/Substance Use Hx: No Substance Use Type: None Hx Substance Use Treatment: No <Dhaval Chen - Last Filed: 11/25/18 16:27> <Jaye Ferguson - Last Filed: 11/27/18 10:16> - Past Medical History Allergies/Adverse Reactions: Allergies Allergy/AdvReac Type Severity Reaction Status Date / Time Penicillins Allergy Intermediate Swelling Verified 09/24/18 22:29 Home Medications: Ambulatory Orders Amlodipine Besylate 10 mg PO HS 04/10/17 Levothyroxine Sodium [Synthroid] 125 mcg PO DAILY 04/10/17 Rivaroxaban [Xarelto -] 20 mg PO HS 04/10/17 Review of Systems - Review of Systems Able to Perform ROS?: No (clinical condition) Is the patient limited Albanian proficient: No <Dhaval Chen - Last Filed: 11/25/18 16:27> *Physical Exam - Physical Exam Comments: 11/25/18 14:21 GENERAL: Well developed, well nourished. Awake and alert. In moderate distress. HEENT: Normocephalic, atraumatic. Hearing grossly normal. Moist mucous membranes. PERRLA, EOMI. No conjunctival pallor. NECK: Supple. Full ROM. No JVD. CARDIOVASCULAR: Tachycardic with irregular rhythm. No murmurs, rubs, or gallops. PULMONARY: Moderate respiratory distress. Decreased aeration in lung gonzales diffusely. ABDOMINAL: Soft. Non-tender. Non-distended. No rebound or guarding. MUSCULOSKELETAL: Normal range of motion at all joints. No bony deformities or tenderness. EXTREMITIES: No cyanosis. No clubbing. 3+ pitting edema in b/l LE. No calf tenderness or swelling. SKIN: Warm and dry. Normal capillary refill. No rashes. No jaundice. NEUROLOGICAL: Alert, awake, appropriate. Cranial nerves 2-12 grossly intact. Normal speech. Gait is normal without ataxia. PSYCHIATRIC: Cooperative. Good eye contact. Appropriate mood and affect. <Dhaval Chen - Last Filed: 11/25/18 16:27> - Vital Signs Last Vital Signs Temp Pulse Resp BP Pulse Ox 97.8 F 90 18 117/84 99 11/27/18 06:00 11/27/18 08:15 11/27/18 08:15 11/27/18 08:15 11/26/18 21:00 <Jaye Ferguson - Last Filed: 11/27/18 10:16> ED Treatment Course - LABORATORY CBC & Chemistry Diagram: 11/25/18 14:12 11/25/18 14:12 - RADIOLOGY Radiology Studies Ordered: Category Date Time Status CHEST X-RAY PORTABLE* [RAD] Stat Radiology 11/25/18 13:37 Ordered <Dhaval Chen - Last Filed: 11/25/18 16:27> - LABORATORY CBC & Chemistry Diagram: 11/27/18 05:42 11/27/18 05:42 - ADDITIONAL ORDERS Additional order review: 11/25/18 14:12 Blood Culture - Preliminary Blood - Peripheral Venous NO GROWTH OBTAINED AFTER 24 HOURS, INCUBATION TO CONTINUE FOR 4 DAYS. 11/25/18 14:10 Blood Culture - Preliminary Blood - Peripheral Venous NO GROWTH OBTAINED AFTER 24 HOURS, INCUBATION TO CONTINUE FOR 4 DAYS. 11/25/18 14:12 RBC 3.92 MCV 91.1 MCHC 32.2 RDW 15.2 MPV 8.8 Neutrophils % 88.9 H D Lymphocytes % 5.5 L D Monocytes % 5.3 Eosinophils % 0.0 D Basophils % 0.3 - Medications Given in the ED: ED Medications Discontinued Medications Generic Name Dose Route Start Last Admin Trade Name Gold PRN Reason Stop Dose Admin Acetaminophen 1,000 mg 11/25/18 14:42 11/25/18 14:47 Ofirmev Injection - IVPB 11/25/18 14:43 1,000 mg ONCE ONE Administration Acetaminophen 650 mg 11/25/18 20:47 11/25/18 21:08 Tylenol - PO 11/25/18 20:48 650 mg ONCE ONE Administration Acetaminophen 1,000 mg 11/26/18 03:32 11/26/18 04:28 Ofirmev Injection - IVPB 11/26/18 03:33 1,000 mg ONCE ONE Administration Albuterol/Ipratropium 3 amp 11/25/18 13:40 11/25/18 14:06 Duoneb - NEB 11/25/18 13:41 3 amp ONCE ONE Administration Albuterol/Ipratropium 1 amp 11/26/18 03:32 11/26/18 04:09 Duoneb - NEB 11/26/18 03:33 1 amp ONCE ONE Administration Albuterol/Ipratropium 1 amp 11/26/18 12:00 11/26/18 11:10 Duoneb - NEB 1 amp RQID ALYSSA Administration Diltiazem HCl 20 mg 11/25/18 14:07 11/25/18 14:32 Cardizem Injection - IVPUSH 11/25/18 14:08 20 mg ONCE ONE Administration Furosemide 40 mg 11/25/18 15:33 11/25/18 15:49 Lasix Injection - IVPUSH 11/25/18 15:34 40 mg ONCE ONE Administration Furosemide 40 mg 11/26/18 11:00 11/26/18 11:24 Lasix Injection - IVPUSH 11/26/18 11:01 40 mg ONCE ONE Administration Azithromycin 500 mg/ Dextrose 250 mls @ 250 mls/hr 11/25/18 15:33 11/25/18 16 :54 IVPB 11/25/18 16:32 250 mls/hr ONCE ONE Administration Ceftriaxone Sodium 1,000 mg/ 50 mls @ 100 mls/hr 11/25/18 15:33 11/25/18 16: 49 Dextrose IVPB 11/25/18 16:02 100 mls/hr ONCE ONE Administration Clindamycin Phosphate 600 mg in 50 mls @ 100 mls/hr 11/26/18 03:00 11/26/18 14:57 Cleocin 600 Mg Premix Ivpb - IVPB 100 mls/hr Q6H-IV ALYSSA Administration Protocol Amiodarone HCl/Dextrose 150 mg in 100 mls @ 600 mls/hr 11/25/18 18:50 21:52 Nexterone 150 Mg/100 Ml Bag IVPB 11/25/18 18:59 Not Given ONCE ONE Protocol Levothyroxine Sodium 112 mcg 11/26/18 07:00 11/26/18 06:16 Synthroid - PO 112 mcg AM ALYSSA Administration Nitroglycerin 0.4 mg 11/25/18 13:39 11/25/18 13:40 Nitrostat - SL 11/25/18 13:40 0.4 mg ONCE ONE Administration <Jaye Ferguson - Last Filed: 11/27/18 10:16> Medical Decision Making - Medical Decision Making 11/25/18 14:23 73F with MMP who presents febrile and tachycardic, concerning for sepsis. In addition, she has LE edema and decreased air movement diffusely concerning for CHF exacerbation. Septic protocol is being followed. Bipap ordered and ABG ordered. CXR pending. EKG shows a-fib with RVR. Dilt push ordered. Abx will be given once Ucx ordered. 11/25/18 16:27 Pt found to have elevated BNP w/ congestive changes concerning for CHF. Treating possible asp pna w/ ceftriaxone and azithro. Pt is currently on cipro for UTI. Pt refused ambriz and straight cath but is on bed page. Pt endorsed to Dr. Mendoza for admission. <Dhaval Chen - Last Filed: 11/25/18 16:27> *DC/Admit/Observation/Transfer - Discharge Dispostion Decision to Admit order: Yes <Dhaval Chen - Last Filed: 11/25/18 16:27> <Jaye Ferguson - Last Filed: 11/27/18 10:16> Diagnosis at time of Disposition: Acute exacerbation of CHF (congestive heart failure) Qualifiers: Heart failure type: unspecified Qualified Code(s): I50.9 - Heart failure, unspecified Sepsis Qualifiers: Sepsis type: sepsis due to unspecified organism Sepsis acute organ dysfunction status: without acute organ dysfunction Qualified Code(s): A41.9 - Sepsis, unspecified organism - Discharge Dispostion Condition at time of disposition: Guarded Discharge <Dhaval Chen - Last Filed: 11/25/18 16:27> - Discharge Information Problems reviewed: Yes <Jaye Ferguson - Last Filed: 11/27/18 10:16> - Discharge Information Clinical Impression/Diagnosis: Acute exacerbation of CHF (congestive heart failure) Qualifiers: Heart failure type: unspecified Qualified Code(s): I50.9 - Heart failure, unspecified Sepsis Qualifiers: Sepsis type: sepsis due to unspecified organism Sepsis acute organ dysfunction status: without acute organ dysfunction Qualified Code(s): A41.9 - Sepsis, unspecified organism Condition: Guarded
[2018-11-25] MEDS ORDERED: dilTIAZem HCL 125 MG/25 ML - 25 ML VIAL ONE ×2 (14:21→14:23)
[2018-11-25 14:32] LABS: BASO % 0.3 % (0-2.0); HEMATOCRIT 35.7 % (32.4-45.2); HEMOGLOBIN 11.5 GM/dL (10.7-15.3); LYMPH % 5.5 % (8-40); MCH 29.4 pg (25.7-33.7); MCHC 32.2 g/dl (32.0-36.0); MEAN CELL VOLUME 91.1 fl (80-96); MEAN PLT VOLUME 8.8 fl (7.5-11.1); MONO % 5.3 % (3.8-10.2); NEUT % 88.9 % (42.8-82.8); PLATELET COUNT 211 K/MM3 (134-434); RBC 3.92 M/mm3 (3.60-5.2); RDW 15.2 % (11.6-15.6); WHITE BLOOD COUNT 20.7 K/mm3 (4.0-10.0)
--- NOTE | 2018-11-25 14:33 | EKG ---
Test Reason : Blood Pressure : / mmHG Vent. Rate : 136 BPM Atrial Rate : 147 BPM P-R Int : 000 ms QRS Dur : 100 ms QT Int : 312 ms P-R-T Axes : 000 022 150 degrees QTc Int : 469 ms ATRIAL FIBRILLATION WITH RAPID VENTRICULAR RESPONSE WITH PREMATURE VENTRICULAR OR ABERRANTLY CONDUCTED COMPLEXES T WAVE ABNORMALITY, CONSIDER LATERAL ISCHEMIA ABNORMAL ECG WHEN COMPARED WITH ECG OF 24-SEP-2018 20:38, ATRIAL FIBRILLATION HAS REPLACED SINUS RHYTHM T WAVE INVERSION NO LONGER EVIDENT IN INFERIOR LEADS Confirmed by MD Goldie, Rajan ([id number]) on 11/25/2018 2:33:08 PM Referred By: Confirmed By:Rajan Amezcua MD
[2018-11-25 14:36] LABS: VENOUS PC02 34.7 mmHg (38-52); VENOUS PH 7.47 (7.31-7.41)
[2018-11-25] MEDS ORDERED: ACETAMINOPHEN 1000 MG/100 ML VIAL (NON FORMULARY) IVPB ONE (14:42)
[2018-11-25] MEDS ORDERED: ACETAMINOPHEN INJECTION 100 ML IVPB ONE (14:44)
[2018-11-25 14:46] LABS: INR 1.38 (0.83-1.09); PROTHROMBIN TIME (PATIENT) 16.3 SEC (9.7-13.0)
[2018-11-25 14:48] LABS: ACTIVATED PTT 34.4 SECONDS (25.2-36.5)
[2018-11-25 15:05] LABS: ALBUMIN 3.2 g/dl (3.4-5.0); BILIRUBIN,TOTAL 0.6 mg/dL (0.2-1); BLOOD UREA NITROGEN 13.4 mg/dL (7-18); CALCIUM 8.7 mg/dL (8.5-10.1); CREATININE 1.1 mg/dL (0.55-1.3); POTASSIUM 3.5 mmol/L (3.5-5.1); TOT PROT 7.9 g/dl (6.4-8.2)
[2018-11-25 15:33] LABS: ANISOCYTOSIS 0; MACROCYTOSIS 0; PLATELET ESTIMATE NORMAL
[2018-11-25] MEDS ORDERED: FUROSEMIDE 40 MG/4 ML INJECTABLE VIAL IVPUSH ONE (15:33)
[2018-11-25] MEDS ORDERED: AZITHROMYCIN IVPB 500 MG in DEXTROSE 5%-WATER - 250 ML IVPB ONE (15:33)
[2018-11-25] MEDS ORDERED: CEFTRIAXONE 1,000 MG in DEXTROSE 5%-WATER - 50 ML IVPB ONE (15:33)
[2018-11-25] MEDS ORDERED: CEFTRIAXONE 1 GM/50 ML BAG ONE (15:36)
[2018-11-25] MEDS ORDERED: AZITHROMYCIN IVPB 500 MG/250 ML BAG IVPB ONE (15:36)
[2018-11-25] MEDS ORDERED: FUROSEMIDE 40 MG/4 ML INJECTABLE VIAL ONE (15:37)
--- NOTE | 2018-11-25 17:06 | PDOC ---
Attending Attestation - Resident Resident Name: Dhaval Chen - ED Attending Attestation I have performed the following: I have examined & evaluated the patient, The case was reviewed & discussed with the resident, I agree w/resident's findings & plan - [facility] HPI: 11/25/18 17:06 73F with a PMH of CHF, anemia, Afib (s/p 2 ablations, currently on xarelto), hypothyroid, PVD and CAD who presents to the ER with complaints of fever and SOB since yesterday, progressively worse today. The daughter states that the patient was eating yesterday and "may" have "choked and vomited a little". She began to develop a fever yesterday tmax 102. This morning, she woke up and felt very short of breath. no cp. Hx is limited 2/2 clinical condition. - Physicial Exam PE: 11/25/18 17:08 Agree with the resident's HPI and PE as documented in the electronic medical record. malaised appearing, mild respiratory distress, EOMI, PERRL, MMM, nl conjunctiva , anicteric; neck supple. lungs diminished b/l, scant wheezing irreg irregular, tachy. abdomen soft nontender. obese. STUART x4, no focal neuro deficits. + bilateral peripheral edema. normal color for ethnicity, WWP. - Critical Care Time Total Critical Care Time: 60 Critical Care Statement: The care of this patient involved high complexity decision making to prevent further life threatening deterioration of the patient 's condition and/or to evaluate & treat vital organ system(s) failure or risk of failure. - Medical Decision Making 11/25/18 17:07 11/25/18 17:08 See HPI for details. Prior notes reviewed, including admissions, discharges and consultations. Vital signs reviewed, +fever, tachy/RVR, borderline sats. Vital Signs Temp Pulse Resp BP Pulse Ox 99.2 F 110 H 18 118/72 99 11/25/18 16:53 11/25/18 16:53 11/25/18 16:53 11/25/18 16:53 11/25/18 16:53 DDx SOB: ACS, PE, PTX, CHF, COPD exac, pulmonary edema, pleurisy, pneumonia, viral syndrome. effusion. anemia, electrolyte/metabolic derangements. laboratory results and imaging reviewed, basic labs and lytes notable for sig leukocytosis 20K. UA_pending vbg unremarkable, no sig derangements CXR_pulmonary vascular congestion Cardiac panel_neg trop, ++BNP, higher than previous EKG Afib RVR. no interval abnormalities, narrow QRS, ST and T wave segments and morphology normal. Nonspecific T wave abnormalities ED course - bedside pocus echo with decreased EF mildly, no pericardial effusion, RV< LV, A line profile, left pleural effusion (small) -interventions: diltaizem, rate control, antibiotics, cef/azithro for pna vs uti tylenol for fever. duonebs for wheezing, cardiac vs pulm wheeze. - bipap, O2 - weaned off bipap, nitro/diuresis for the chf. sepsis workup, cultures pending - VS much improved with therapy. off bipap, comfortable on O2. Admit for Afib RVR, febrile illness/sepsis, chf. Discussed results and management plan with pt and family member at bedside, agree with impression, treatment indications, recommendations and plan. s/o hospitalist team for admit 11/25/18 17:09 11/25/18 17:11 11/25/18 17:12 11/25/18 17:13 Heart Score/ECG Review #1 ECG reviewed & interpreted by me at: 13:00 Compared to previous ECG there are: Changes noted 11/25/18 17:13 afib with RVR
--- NOTE | 2018-11-25 17:38 | HP ---
CHIEF COMPLAINT: AMS, SOB PCP: HISTORY OF PRESENT ILLNESS: Patient is a 73 yo female with a history of CHF, anemia, afib on xarelto ( s/p ablation one year ago), and CAD who presents for AMS. Per patient she was at home yesterday when she had a very large episode of vomiting. After that she doesn't remember much and states she was confused. She was still confused this morning when her daughter brought her to the hospital. Patient reports no other symptoms but was also short of breath on arrival. Patient reports she used to take amiodarone for her afib but did not like the side effects and her PCP titrated her down. In May she was taking 50 of amiodarone. patient reports at night she sometimes notes having palpitations. Patient reports a history of frequent UTI's but does not currently have those symptoms. Patient denies cough , fever, or sputum production. Patients Install And Repair Technician is Dr. Ratliff. Per her daughter she had a temperature yesterday. While in the ED patient was placed on BIPAP, patient uncomfortable and moved to nasal cannula where she was satting > 90. Patient refuses straight cath, discussed importance of urine collection. ER course was notable for: (1) 20 of diltiazem (2) (3) Recent Travel: denies PAST MEDICAL HISTORY: CHF, anemia, afib on xarelto ( s/p ablation one year ago) , and CAD PAST SURGICAL HISTORY: R rotator cuff Social History: Smoking: denies Alcohol: denies Drugs: denies Allergies Penicillins Allergy (Intermediate, Verified 09/24/18 22:29) Swelling HOME MEDICATIONS: Home Medications Medication Instructions Recorded Amlodipine Besylate 10 mg PO HS 04/10/17 Levothyroxine Sodium [Synthroid] 112 mcg PO DAILY 04/10/17 Rivaroxaban [Xarelto -] 20 mg PO HS 04/10/17 Clindamycin HCl 600 mg PO TIDCM #22 capsule 09/27/18 Lactobacillus Acidophilus 1 each PO DAILY #30 capsule 09/27/18 [Probiotic] REVIEW OF SYSTEMS CONSTITUTIONAL: Absent: fever, chills, diaphoresis, generalized weakness, malaise, loss of appetite, weight change HEENT: Absent: rhinorrhea, nasal congestion, throat pain, throat swelling, difficulty swallowing, mouth swelling, ear pain, eye pain, visual changes CARDIOVASCULAR: Absent: chest pain, syncope, palpitations, irregular heart rate, lightheadedness , peripheral edema RESPIRATORY: shortness of breath Absent: cough, , dyspnea with exertion, orthopnea, wheezing, stridor, hemoptysis GASTROINTESTINAL: Absent: abdominal pain, abdominal distension, nausea, vomiting, diarrhea, constipation, melena, hematochezia GENITOURINARY: Absent: dysuria, frequency, urgency, hesitancy, hematuria, flank pain, genital pain MUSCULOSKELETAL: Absent: myalgia, arthralgia, joint swelling, back pain, neck pain SKIN: Absent: rash, itching, pallor HEMATOLOGIC/IMMUNOLOGIC: Absent: easy bleeding, easy bruising, lymphadenopathy, frequent infections ENDOCRINE: Absent: unexplained weight gain, unexplained weight loss, heat intolerance, cold intolerance NEUROLOGIC: Absent: headache, focal weakness or paresthesias, dizziness, unsteady gait, seizure, mental status changes, bladder or bowel incontinence PSYCHIATRIC: Absent: anxiety, depression, suicidal or homicidal ideation, hallucinations. PHYSICAL EXAMINATION Vital Signs - 24 hr 11/25/18 11/25/18 11/25/18 13:13 13:37 13:45 Temperature 100.0 F H Pulse Rate 130 H 125 H 105 H Pulse Rate [ Apical] Respiratory 28 H Rate Blood Pressure 155/99 Blood Pressure [Right Arm] O2 Sat by Pulse 98 100 100 Oximetry (%) 11/25/18 11/25/18 11/25/18 14:25 14:36 15:10 Temperature 100.0 F H Pulse Rate Pulse Rate [ 135 H 102 H Apical] Respiratory 22 H 22 H Rate Blood Pressure Blood Pressure 148/70 140/70 [Right Arm] O2 Sat by Pulse 98 100 98 Oximetry (%) 11/25/18 16:53 Temperature 99.2 F Pulse Rate Pulse Rate [ 110 H Apical] Respiratory 18 Rate Blood Pressure Blood Pressure 118/72 [Right Arm] O2 Sat by Pulse 99 Oximetry (%) GENERAL: Awake, alert, and fully oriented, in no acute distress. HEAD: Normal with no signs of trauma. EYES: Pupils equal, round and reactive to light, extraocular movements intact, EARS, NOSE, THROAT: Moist mucous membranes. LUNGS: Breath sounds equal, clear to auscultation bilaterally. No wheezes, and no crackles. No accessory muscle use. HEART: irregularly irregular ABDOMEN: Soft, nontender, not distended, MUSCULOSKELETAL: Normal range of motion at all joints. No bony deformities or tenderness. No CVA tenderness. LOWER EXTREMITIES: diffuse edema with darkened skin changes SKIN: Warm, dry, normal turgor, no rashes or lesions noted, normal capillary refill. CBC, BMP 11/25/18 14:12 11/25/18 14:12 ASSESSMENT/PLAN: Patient is a 73 yo female with a history of CHF, anemia, afib on xarelto ( s/p ablation one year ago), and CAD who presents for AMS and SOB. #SOB 2/2 to Afib with RVR - likely 2/2 to infection - patient given 20 of diltizem in ED - Will begin loading dose of amiodarone - monitor on tele - f/u Cardio - continue xarelto #Sepsis 2/2 to unknown source - CXR without evidence of PNA, r/o cellulitis - frequent hx of UTI but without symptoms, f/u UA - f/u bladder scan for any evidence of retention - f/u sputum, blood, and urine cx - continue Clindamycin and Ceftriaxone - f/u ESR and CRP #Lymphedema - f/u arterial and shay doppler - abx to cover for any cellulitis #CHF - f/u echo - pt given 40 of lasix -BNP 3689 #hypothyroidism - continue levothyroxine #HTN - continue amlodipine #obesity - consider outpatient bariatric work up - PATRICIA evaluation DVT ppx - xarelto Dispo: monitor on tele Visit type - Emergency Visit Emergency Visit: Yes ED Registration Date: 11/25/18 Care time: The patient presented to the Emergency Department on the above date and was hospitalized for further evaluation of their emergent condition. - New Patient This patient is new to me today: Yes Date on this admission: 11/26/18 - Critical Care Critical Care patient: No ATTENDING PHYSICIAN STATEMENT I saw and evaluated the patient. I reviewed the resident's note and discussed the case with the resident. I agree with the resident's findings and plan as documented. SUBJECTIVE: OBJECTIVE: ASSESSMENT AND PLAN:
[2018-11-25] MEDS ORDERED: AMIODARONE HCL 200 MG TABLET (FP) PO ONE (18:16)
[2018-11-25] MEDS ORDERED: AMIODARONE IN DEXTROSE,ISO-OSM 150 MG/100 ML BAG IVPB ONE (18:50)
[2018-11-25 18:52] VITALS: BMI 46.3
[2018-11-25] MEDS ORDERED: PT OWN MED DRAWER 7, Y5N ONE (18:59)
[2018-11-25] MEDS ORDERED: AMIODARONE IN DEXTROSE,ISO-OSM 360 MG/200 ML BAG IVPB ONE (19:00)
--- NOTE | 2018-11-25 19:59 | CON.CARD ---
Consult Consult Specialty:: cardiology Reason for Consultation:: AF; SOB - History of Present Illness Chief Complaint: Pt alert; denies chest pain, palpitations, dizziness History of Present Illness: 73 yr old woman with PMH of CHF, anemia, Afib (s/p 2 ablations, currently on xarelto), hypothyroid, PVD and CAD, who presents to the ER with complaints of fever and SOB since yesterday, progressively worse today. The daughter states that the patient was eating yesterday and "may" have "choked and vomited a little". She began to develop a fever yesterday tmax 102. This morning, she woke up and felt very short of breath. no cp. Hx is limited 2/2 clinical condition. - History Source History Provided By: Patient, Family Member (daughter), Medical Record Limitations to Obtaining History: No Limitations - Past Medical History Cardio/Vascular: Yes: AFIB, CHF, HTN Pulmonary: No: Asthma Renal/: No: Renal Failure Reproductive: Yes: Postmenopausal ...: No Psych: Yes: Other Endocrine: Yes: Hypothyroidism - Alcohol/Substance Use Hx Alcohol Use: No - Smoking History Smoking history: Former smoker Have you smoked in the past 12 months: No If you are a former smoker, when did you quit?: 40 yrs ago Home Medications - Allergies Allergies/Adverse Reactions: Allergies Allergy/AdvReac Type Severity Reaction Status Date / Time Penicillins Allergy Intermediate Swelling Verified 09/24/18 22:29 - Home Medications Home Medications: Ambulatory Orders Amlodipine Besylate 10 mg PO HS 04/10/17 Levothyroxine Sodium [Synthroid] 125 mcg PO DAILY 04/10/17 Rivaroxaban [Xarelto -] 20 mg PO HS 04/10/17 Family Medical History Family History: Denies Review of Systems - Review of Systems Constitutional: reports: Weakness Eyes: reports: No Symptoms HENT: reports: No Symptoms Neck: reports: No Symptoms Cardiovascular: reports: Shortness of Breath Respiratory: reports: SOB Gastrointestinal: reports: No Symptoms Genitourinary: reports: No Symptoms Breasts: reports: No Symptoms Reported Musculoskeletal: reports: Muscle Weakness Neurological: reports: Weakness Endocrine: reports: No Symptoms Hematology/Lymphatic: reports: No Symptoms Psychiatric: reports: No Symptoms - Risk Factors Known Risk Factors: Yes: Age, Hypercholesterolemia, Hypertension, Physical Inactivity Vital Signs: Vital Signs Temperature 98.6 F 11/25/18 18:26 Pulse Rate 89 11/25/18 18:26 Respiratory Rate 20 11/25/18 18:26 Blood Pressure 118/76 11/25/18 18:26 O2 Sat by Pulse Oximetry (%) 96 11/25/18 18:26 Constitutional: Yes: No Distress Eyes: Yes: WNL HENT: Yes: WNL Neck: Yes: WNL Respiratory: Yes: SOB Gastrointestinal: Yes: Soft Renal/: No: Anuria Cardiovascular: Yes: Tachycardia, Pulse Irregular JVD: No Carotid Bruit: No PMI: Non-Displaced Heart Sounds: Yes: S1 (varies in intensity), S3 Murmur: Yes: Systolic Murmur, Grade 2 Musculoskeletal: Yes: Muscle Weakness Extremities: Yes: Cool Edema: No Peripheral Pulses WNL: Yes Integumentary: Yes: WNL Neurological: Yes: Alert, Oriented, Weakness Psychiatric: Yes: Alert, Oriented - Other Data Labs, Other Data: CBC, BMP 11/25/18 14:12 11/25/18 14:12 INR, PTT INR 1.38 (0.83-1.09) H 11/25/18 14:12 Troponin, BNP 11/25/18 11/25/18 14:12 14:12 Troponin I 0.02 B-Natriuretic Peptide 3869.9 H Troponin, BNP 11/25/18 11/25/18 14:12 14:12 Troponin I 0.02 B-Natriuretic Peptide 3869.9 H Abnormal Lab Results 11/27/18 11/27/18 05:42 05:42 WBC 15.0 H RBC 3.45 L Hgb 10.1 L Hct 31.5 L Absolute Neuts (auto) 13.9 H Neutrophils % 92.6 H Neutrophils % (Manual) 87.8 H Lymphocytes % 5.2 L Monocytes % 2.1 L Monocytes % (Manual) 2 L Anion Gap 6 L BUN 21.9 H Random Glucose 158 H Calcium 8.3 L Magnesium 2.6 H Echo: Pending Imaging - Results Chest X-ray: Image Reviewed (enlarged heart; CHF) EKG: Image Reviewed (AF with RVR) Problem List - Problems (1) Sepsis Assessment/Plan: On antibiotics; f/u workup. Antipyretics as needed (avoid NSAIDS). Code(s): A41.9 - SEPSIS, UNSPECIFIED ORGANISM Qualifiers: Sepsis type: sepsis due to unspecified organism Sepsis acute organ dysfunction status: without acute organ dysfunction Qualified Code(s): A41.9 - Sepsis, unspecified organism (2) Acute exacerbation of CHF (congestive heart failure) Assessment/Plan: Elevated BNP. CXR: enlarged heart; congestive changes. Plan: Metoprolol restarted (AF; CHF; HTN). ECHO for LVEF, chamber sizes, valve status. TSH (on Synthroid). Pt was gven furosemide. F/u BUN/Cr, electrolytes, daily weight, Is and Os. Code(s): I50.9 - HEART FAILURE, UNSPECIFIED Qualifiers: Heart failure type: unspecified Qualified Code(s): I50.9 - Heart failure, unspecified (3) Afib Assessment/Plan: EKG: AF with RVR. Telemetry: HR 95-110 bpm at rest; to 140s bpm when she moves around. Per pt's daughter and pt, she was on metoprolol until early 2018, but was discontinued due to ?depression. Will restart metoprolol (enlarged heart on CXR ; elevated BNP; congestive changes) until ECHO is done for LVEF, or until pt's outside PMD/windows deployment technician are able to be contacted and can provide more information. Control fever. If heart rate becomes refractory to metorprolol, can use amiodarone IV, then restart PO. Maintain electrolytes: Keep K+ 4.0-4,5 Keep Mg 2.0-2.4 Keep PO4 2.5-4.9. F/u TSH. Addendum: I spoke with Dr. Ratliff, pt's windows deployment technician. Pt was cardioverted twice, the last time about 3 years ago; LVEF, which had been poor, improved to nearly normal afterward. She was on amiodarone, and was maintaining sinus rhythm; he believes the dose had been decreased to 200 mg three times a week (he does not believe she had associated pulmonary,liver, or thyroid side effects); she was also on metoprolol. She had a stress MIBI about a year ago that showed no ischemia. However, he has not seen her in about 6 months, as she has spent more time with family in [place], and he is uncertain of her compliance to medications and diet. Code(s): I48.91 - UNSPECIFIED ATRIAL FIBRILLATION (4) Cellulitis Code(s): L03.90 - CELLULITIS, UNSPECIFIED Qualifiers: Site of cellulitis: extremity Site of cellulitis of extremity: lower extremity Laterality: left Qualified Code(s): L03.116 - Cellulitis of left lower limb (5) HTN (hypertension) Assessment/Plan: Restarted metoprolol. Given furosemide for CHF. Hold amlodipine. IF BP remains elevated, start lisinopril (particularly if LVEF is reduced or LV dilated). Code(s): I10 - ESSENTIAL (PRIMARY) HYPERTENSION (6) Hypothyroid Code(s): E03.9 - HYPOTHYROIDISM, UNSPECIFIED (7) UTI (urinary tract infection), bacterial Code(s): N39.0 - URINARY TRACT INFECTION, SITE NOT SPECIFIED; A49.9 - BACTERIAL INFECTION, UNSPECIFIED
--- NOTE | 2018-11-25 20:18 | PN ---
Teaching Attending Note Name of Resident: Feli Mendoza ATTENDING PHYSICIAN STATEMENT I saw and evaluated the patient. I reviewed the resident's note and discussed the case with the resident. I agree with the resident's findings and plan as documented. SUBJECTIVE: OBJECTIVE: ASSESSMENT AND PLAN:
[2018-11-25] MEDS: METOPROLOL TARTRATE 25 MG TABLET (FP) PO SCH (20:43)
[2018-11-25] MEDS: RIVAROXABAN 20 MG TABLET PO SCH (20:43)
[2018-11-25] MEDS ORDERED: METOPROLOL TARTRATE 5 MG/5 ML VIAL IVPUSH PRN ×2 (20:47→20:51)
[2018-11-25] MEDS ORDERED: ACETAMINOPHEN 325 MG TABLET (FP) PO ONE (20:47)
[2018-11-25] MEDS ORDERED: amLODIPine BESYLATE 5 MG TABLET (FP) PO SCH (22:00)
[2018-11-25] MEDS ORDERED: METOPROLOL TARTRATE 50 MG TABLET (FP) PO SCH (22:00)
[2018-11-26] MEDS ORDERED: AMIODARONE IN DEXTROSE,ISO-OSM 360 MG/200 ML BAG IVPB SCH (01:00)
[2018-11-26] MEDS ORDERED: ALBUTEROL SO4 2.5/IPRATROPIUM 0.5 INH SOL 3 ML VIAL.NEB. NEB ONE (03:32)
[2018-11-26] MEDS ORDERED: ACETAMINOPHEN 1000 MG/100 ML VIAL (NON FORMULARY) IVPB ONE (03:32)
--- NOTE | 2018-11-26 03:59 | PN ---
Progress Note (short form) - Note Progress Note: Received a call from nurse that patient was having SOB after taking off her nasal cannula to go to the bathroom. Patient seen at bedside stating that she has some SOB. As per nurse patient was breathing more heavily than earlier in the night. Patient denies any history of asthma or COPD. Patient O2 saturation at 100%, tachycardic in the 130s, and temperature of 100.3F. Mild wheezing noted in left lung on expiration. Ordered duoneb treatment for SOB and ofirmev for fever control. Patient reassessed after Duoneb treatment - breathing more comfortably. No longer wheezing.
[2018-11-26] MEDS: CLINDAMYCIN 600MG PREMIX IVPB 600 MG/50 ML BAG IVPB SCH ×3 (04:28→14:57)
[2018-11-26] MEDS: METOPROLOL TARTRATE 25 MG TABLET (FP) PO SCH ×3 (05:32→21:59)
[2018-11-26] MEDS ORDERED: LEVOTHYROXINE NA 112 MCG TABLET (FP) PO SCH (07:00)
[2018-11-26 07:03] LABS: HEMOGLOBIN 10.2 GM/dL (10.7-15.3); MCH 29.9 pg (25.7-33.7); MCHC 32.9 g/dl (32.0-36.0); MEAN PLT VOLUME 9.1 fl (7.5-11.1); PLATELET COUNT 181 K/MM3 (134-434); RBC 3.41 M/mm3 (3.60-5.2); RDW 15.4 % (11.6-15.6); WHITE BLOOD COUNT 16.2 K/mm3 (4.0-10.0)
[2018-11-26 07:31] LABS: BILIRUBIN,TOTAL 0.4 mg/dL (0.2-1); BLOOD UREA NITROGEN 15.8 mg/dL (7-18); CALCIUM 8.4 mg/dL (8.5-10.1); CREATININE 1.3 mg/dL (0.55-1.3); POTASSIUM 3.5 mmol/L (3.5-5.1); TOT PROT 6.9 g/dl (6.4-8.2)
[2018-11-26] MEDS ORDERED: cefTRIAXone SODIUM 1 GM VIAL ONE (09:07)
[2018-11-26] MEDS ORDERED: DEXTROSE 5%-WATER 100 ML IVPB ONE (09:07)
[2018-11-26] MEDS ORDERED: ALBUTEROL SO4 0.083% IH SOL 2.5 MG/3 ML VIAL.NEB. NEB PRN (09:37)
[2018-11-26] MEDS: CEFTRIAXONE 1 GM in DEXTROSE 5%-WATER 100 ML IVPB SCH (09:46)
--- NOTE | 2018-11-26 10:14 | PN ---
Teaching Attending Note Name of Resident: Lawson Hauser ATTENDING PHYSICIAN STATEMENT I saw and evaluated the patient. I reviewed the resident's note and discussed the case with the resident. I agree with the resident's findings and plan as documented with exceptions below. SUBJECTIVE: Patient seen and examined. OBJECTIVE: Vital Signs Period Temp Pulse Resp BP Sys/Ray Pulse Ox Last 24 Hr 98.6 F-100.8 F 81-135 18-28 116-166/69-102 96-100 Intake & Output 11/23/18 11/24/18 11/25/18 11/26/18 23:59 23:59 23:59 23:59 Intake Total 250 100 Balance 250 100 Weight 253 lb 253 lb 6.4 oz Home Medications Medication Instructions Recorded Amlodipine Besylate 10 mg PO HS 04/10/17 Levothyroxine Sodium [Synthroid] 125 mcg PO DAILY 04/10/17 Rivaroxaban [Xarelto -] 20 mg PO HS 04/10/17 Active Medications Albuterol Sulfate (Ventolin 0.083% Nebulizer Soln -) 1 amp NEB Q4H PRN PRN Reason: SHORT OF BREATH/WHEEZING Albuterol/Ipratropium (Duoneb -) 1 amp NEB RQID [facility] Furosemide (Lasix Injection -) 40 mg IVPUSH ONCE ONE Stop: 11/26/18 11:01 Ceftriaxone Sodium 1 gm/ (Dextrose) 100 mls @ 200 mls/hr IVPB DAILY [facility]; Protocol Last Admin: 11/26/18 09:46 Dose: 200 mls/hr Clindamycin Phosphate (Cleocin 600 Mg Premix Ivpb -) 600 mg in 50 mls @ 100 mls /hr IVPB Q6H-IV [facility]; Protocol Last Admin: 11/26/18 09:47 Dose: 100 mls/hr Levothyroxine Sodium (Synthroid -) 125 mcg PO DAILY@0700 [facility] Metoprolol Tartrate (Lopressor -) 25 mg PO TID [facility] Last Admin: 11/26/18 05:32 Dose: 25 mg Metoprolol Tartrate (Lopressor Injection -) 5 mg IVPUSH Q4H PRN PRN Reason: HYPERTENSION Rivaroxaban (Xarelto) 20 mg PO DAILY@1800 [facility] Last Admin: 11/25/18 20:43 Dose: 20 mg Laboratory Results - last 24 hr 11/25/18 11/25/1819 14:10 14:10 14:12 WBC RBC Hgb Hct MCV MCH MCHC RDW Plt Count MPV Absolute Neuts (auto) Neutrophils % Neutrophils % (Manual) Band Neutrophils % Lymphocytes % Lymphocytes % (Manual) Monocytes % Monocytes % (Manual) Eosinophils % Eosinophils % (Manual) Basophils % Basophils % (Manual) Myelocytes % (Man) Promyelocytes % (Man) Blast Cells % (Manual) Nucleated RBC % Metamyelocytes Hypochromia Platelet Estimate Polychromasia Poikilocytosis Anisocytosis Microcytosis Macrocytosis PT with INR INR PTT (Actin FS) VBG pH 7.47 H POC VBG pCO2 34.7 L POC VBG pO2 163 H VBG HCO3 25.1 VBG O2 Sat (Breana) 99.4 H VBG Base Excess 2.2 H Sodium Potassium Chloride Carbon Dioxide Anion Gap BUN Creatinine Est GFR (CKD-EPI)AfAm Est GFR (CKD-EPI)NonAf Random Glucose Lactic Acid 1.0 Calcium Magnesium Total Bilirubin AST ALT Alkaline Phosphatase Troponin I C-Reactive Protein B-Natriuretic Peptide 3869.9 H Total Protein Albumin TSH 11/25/18 11/25/18 11/25/18 14:12 14:12 14:12 WBC 20.7 H RBC 3.92 Hgb 11.5 Hct 35.7 MCV 91.1 MCH 29.4 MCHC 32.2 RDW 15.2 Plt Count 211 MPV 8.8 Absolute Neuts (auto) 18.4 H Neutrophils % 88.9 H D Neutrophils % (Manual) 83.3 H Band Neutrophils % 4.2 Lymphocytes % 5.5 L D Lymphocytes % (Manual) 7.3 L D Monocytes % 5.3 Monocytes % (Manual) 5 D Eosinophils % 0.0 D Eosinophils % (Manual) 0.0 Basophils % 0.3 Basophils % (Manual) 0.0 Myelocytes % (Man) 0 Promyelocytes % (Man) 0 Blast Cells % (Manual) 0 Nucleated RBC % 0 Metamyelocytes 0 Hypochromia 0 Platelet Estimate Normal Polychromasia 0 Poikilocytosis 0 Anisocytosis 0 Microcytosis 0 Macrocytosis 0 PT with INR 16.30 H INR 1.38 H PTT (Actin FS) 34.4 VBG pH POC VBG pCO2 POC VBG pO2 VBG HCO3 VBG O2 Sat (Breana) VBG Base Excess Sodium 137 Potassium 3.5 Chloride 103 Carbon Dioxide 27 Anion Gap 8 BUN 13.4 Creatinine 1.1 Est GFR (CKD-EPI)AfAm 56.87 Est GFR (CKD-EPI)NonAf 49.07 Random Glucose 118 H Lactic Acid Calcium 8.7 Magnesium Total Bilirubin 0.6 AST 16 ALT 20 Alkaline Phosphatase 75 Troponin I 0.02 C-Reactive Protein B-Natriuretic Peptide Total Protein 7.9 Albumin 3.2 L TSH 11/25/18 11/25/18 11/26/18 23:40 23:40 05:40 WBC RBC Hgb Hct MCV MCH MCHC RDW Plt Count MPV Absolute Neuts (auto) Neutrophils % Neutrophils % (Manual) Band Neutrophils % Lymphocytes % Lymphocytes % (Manual) Monocytes % Monocytes % (Manual) Eosinophils % Eosinophils % (Manual) Basophils % Basophils % (Manual) Myelocytes % (Man) Promyelocytes % (Man) Blast Cells % (Manual) Nucleated RBC % Metamyelocytes Hypochromia Platelet Estimate Polychromasia Poikilocytosis Anisocytosis Microcytosis Macrocytosis PT with INR INR PTT (Actin FS) VBG pH POC VBG pCO2 POC VBG pO2 VBG HCO3 VBG O2 Sat (Breana) VBG Base Excess Sodium 136 Potassium 3.5 Chloride 101 Carbon Dioxide 27 Anion Gap 8 BUN 15.8 Creatinine 1.3 Est GFR (CKD-EPI)AfAm 46.47 Est GFR (CKD-EPI)NonAf 40.10 Random Glucose 116 H Lactic Acid Calcium 8.4 L Magnesium 2.0 Cancelled Total Bilirubin 0.4 AST 19 ALT 22 Alkaline Phosphatase 67 Troponin I C-Reactive Protein 14.9 H B-Natriuretic Peptide Total Protein 6.9 Albumin 3.0 L TSH 1.16 11/26/18 05:40 WBC 16.2 H RBC 3.41 L Hgb 10.2 L Hct 31.0 L MCV 91.0 MCH 29.9 MCHC 32.9 RDW 15.4 Plt Count 181 MPV 9.1 Absolute Neuts (auto) Neutrophils % Neutrophils % (Manual) Band Neutrophils % Lymphocytes % Lymphocytes % (Manual) Monocytes % Monocytes % (Manual) Eosinophils % Eosinophils % (Manual) Basophils % Basophils % (Manual) Myelocytes % (Man) Promyelocytes % (Man) Blast Cells % (Manual) Nucleated RBC % Metamyelocytes Hypochromia Platelet Estimate Polychromasia Poikilocytosis Anisocytosis Microcytosis Macrocytosis PT with INR INR PTT (Actin FS) VBG pH POC VBG pCO2 POC VBG pO2 VBG HCO3 VBG O2 Sat (Breana) VBG Base Excess Sodium Potassium Chloride Carbon Dioxide Anion Gap BUN Creatinine Est GFR (CKD-EPI)AfAm Est GFR (CKD-EPI)NonAf Random Glucose Lactic Acid Calcium Magnesium Total Bilirubin AST ALT Alkaline Phosphatase Troponin I C-Reactive Protein B-Natriuretic Peptide Total Protein Albumin TSH ASSESSMENT AND PLAN:
[2018-11-26] MEDS: LEVOTHYROXINE NA 125 MCG TABLET (FP) PO SCH (10:40)
--- NOTE | 2018-11-26 10:44 | EKG ---
Test Reason : Blood Pressure : / mmHG Vent. Rate : 095 BPM Atrial Rate : 115 BPM P-R Int : 000 ms QRS Dur : 088 ms QT Int : 380 ms P-R-T Axes : 000 002 119 degrees QTc Int : 477 ms ATRIAL FIBRILLATION T WAVE ABNORMALITY, CONSIDER LATERAL ISCHEMIA PROLONGED QT ABNORMAL ECG WHEN COMPARED WITH ECG OF 25-NOV-2018 13:30, NONSPECIFIC T WAVE ABNORMALITY NO LONGER EVIDENT IN INFERIOR LEADS T WAVE INVERSION MORE EVIDENT IN LATERAL LEADS Confirmed by CRISTIAN GAITAN MD ([id number]) on 11/26/2018 10:43:33 AM Referred By: Heide PADILLA Confirmed By:CRISTIAN GAITAN MD
[2018-11-26] MEDS ORDERED: FUROSEMIDE 40 MG/4 ML INJECTABLE VIAL IVPUSH ONE (11:00)
[2018-11-26 11:13] LABS: ERYTHROCYTE SEDIMENTATION RATE 90 mm/hr (0-30)
--- NOTE | 2018-11-26 11:54 | PN ---
Progress Note, Physician History of Present Illness: 73 yr old woman with PMH of CHF, anemia, Afib (s/p 2 ablations, currently on xarelto), hypothyroid, PVD and CAD, who presents to the ER with complaints of fever and SOB since yesterday, progressively worse today. The daughter states that the patient was eating yesterday and "may" have "choked and vomited a little". She began to develop a fever yesterday tmax 102. This morning, she woke up and felt very short of breath. no cp. Hx is limited 2/2 clinical condition. - Current Medication List Current Medications: Active Medications Albuterol Sulfate (Ventolin 0.083% Nebulizer Soln -) 1 amp NEB Q4H PRN PRN Reason: SHORT OF BREATH/WHEEZING Albuterol/Ipratropium (Duoneb -) 1 amp NEB RQID [facility] Last Admin: 11/26/18 11:10 Dose: 1 amp Ceftriaxone Sodium 1 gm/ (Dextrose) 100 mls @ 200 mls/hr IVPB DAILY [facility]; Protocol Last Admin: 11/26/18 09:46 Dose: 200 mls/hr Clindamycin Phosphate (Cleocin 600 Mg Premix Ivpb -) 600 mg in 50 mls @ 100 mls /hr IVPB Q6H-IV [facility]; Protocol Last Admin: 11/26/18 09:47 Dose: 100 mls/hr Levothyroxine Sodium (Synthroid -) 125 mcg PO DAILY@0700 [facility] Last Admin: 11/26/18 10:40 Dose: Not Given Metoprolol Tartrate (Lopressor -) 25 mg PO TID [facility] Last Admin: 11/26/18 05:32 Dose: 25 mg Metoprolol Tartrate (Lopressor Injection -) 5 mg IVPUSH Q4H PRN PRN Reason: HYPERTENSION Rivaroxaban (Xarelto) 20 mg PO DAILY@1800 [facility] Last Admin: 11/25/18 20:43 Dose: 20 mg - Objective Vital Signs: Vital Signs Temperature 98.6 F 11/26/18 10:00 Pulse Rate 98 H 11/26/18 10:00 Respiratory Rate 18 11/26/18 10:00 Blood Pressure 104/54 L 11/26/18 10:00 O2 Sat by Pulse Oximetry (%) 98 11/25/18 21:00 Eyes: Yes: WNL, Conjunctiva Clear, EOM Intact HENT: Yes: WNL, Atraumatic, Normocephalic Neck: Yes: WNL, Supple, Trachea Midline Cardiovascular: Yes: Pulse Irregular, Murmur, S1, S2 Respiratory: Yes: WNL, Regular, CTA Bilaterally Gastrointestinal: Yes: WNL, Normal Bowel Sounds Genitourinary: Yes: WNL Musculoskeletal: Yes: WNL Extremities: Yes: Erythema Edema: Yes Integumentary: Yes: WNL Neurological: Yes: WNL, Alert, Oriented ...Motor Strength: WNL Psychiatric: Yes: WNL Labs: CBC, BMP 11/26/18 05:40 11/26/18 05:40 INR, PTT INR 1.38 (0.83-1.09) H 11/25/18 14:12 Assessment/Plan - Problems (1) Sepsis Assessment/Plan: On antibiotics; f/u workup. Code(s): A41.9 - SEPSIS, UNSPECIFIED ORGANISM Qualifiers: Sepsis type: sepsis due to unspecified organism Sepsis acute organ dysfunction status: without acute organ dysfunction Qualified Code(s): A41.9 - Sepsis, unspecified organism (2) Acute exacerbation of CHF (congestive heart failure) Assessment/Plan: Elevated BNP. CXR: enlarged heart; congestive changes. Plan: Metoprolol restarted (AF; CHF; HTN). ECHO for LVEF, chamber sizes, valve status. TSH (on Synthroid). Given furosemide. F/u BUN/Cr, electrolytes, daily weight, Is and Os. Code(s): I50.9 - HEART FAILURE, UNSPECIFIED Qualifiers: Heart failure type: unspecified Qualified Code(s): I50.9 - Heart failure, unspecified (3) Afib Assessment/Plan: EKG: AF with RVR. Telemetry: HR 95-110 bpm at rest; to 140s bpm when she moves around. Per pt's daughter and pt, she was on metoprolol until early 2018, but was discontinued due to ?depression. Will restart metoprolol (enlarged heart on CXR ; elevated BNP; congestive changes) until ECHO is done for LVEF, or until pt's outside PMD/computer assistant are able to be contacted and can provide more information. Control fever. If heart rate becomes refractory to metorprolol, can use amiodarone IV, then restart PO. Maintain electrolytes: Keep K+ 4.0-4,5 Keep Mg 2.0-2.4 Keep PO4 2.5-4.9. F/u TSH. Addendum: I spoke with Dr. Ratliff, pt's computer assistant. Pt was cardioverted twice, the last time about 3 years ago; LVEF, which had been poor, improved to nearly normal afterward. She was on amiodarone, and was maintaining sinus rhythm; he believes the dose had been decreased to 200 mg three times a week (he does not believe she had associated pulmonary,liver, or thyroid side effects); she was also on metoprolol. She had a stress MIBI about a year ago that showed no ischemia. However, he has not seen her in about 6 months, as she has spent more time with family in [place], and he is uncertain of her compliance to medications and diet. Code(s): I48.91 - UNSPECIFIED ATRIAL FIBRILLATION (4) Cellulitis Code(s): L03.90 - CELLULITIS, UNSPECIFIED Qualifiers: Site of cellulitis: extremity Site of cellulitis of extremity: lower extremity Laterality: left Qualified Code(s): L03.116 - Cellulitis of left lower limb (5) HTN (hypertension) Assessment/Plan: Restarted metoprolol. Given furosemide for CHF. Hold amlodipine. IF BP remains elevated, start lisinopril (particularly if LVEF is reduced or LV dilated). Code(s): I10 - ESSENTIAL (PRIMARY) HYPERTENSION (6) Hypothyroid Code(s): E03.9 - HYPOTHYROIDISM, UNSPECIFIED (7) UTI (urinary tract infection), bacterial Code(s): N39.0 - URINARY TRACT INFECTION, SITE NOT SPECIFIED; A49.9 - BACTERIAL INFECTION, UNSPECIFIED
[2018-11-26] MEDS ORDERED: ALBUTEROL SO4 2.5/IPRATROPIUM 0.5 INH SOL 3 ML VIAL.NEB. NEB SCH (12:00)
[2018-11-26 12:34] LABS: URINE APPEARANCE CLEAR; URINE BILIRUBIN NEGATIVE (NEGATIVE); URINE COLOR YELLOW; URINE GLUCOSE (UA) NEGATIVE (NEGATIVE); URINE KETONE NEGATIVE (NEGATIVE); URINE LEUK ESTERASE NEGATIVE (NEGATIVE); URINE NITRITE NEGATIVE (NEGATIVE); URINE PROTEIN TRACE (NEGATIVE); URINE UROBILINOGEN 0.2 mg/dL (0.2-1.0)
--- NOTE | 2018-11-26 12:59 | CON.ID ---
Consult Consult Specialty:: infectious diseases Referred by:: Reason for Consultation:: leukocytosis,aspiration pna - History of Present Illness Chief Complaint: vomiting,fever,sob History of Present Illness: 73 yo female with a history of CHF, anemia, afib on xarelto ( s/p ablation one year ago), and CAD who presents for AMS. Per patient she was at home yesterday when she had a very large episode of vomiting. After that she doesn't remember much and states she was confused.patient was confused when she was brought to the hospital and was sob and was placed on bipap . Patient reports a history of frequent UTI's but does not currently have those symptoms. Patient denies cough, fever, or sputum production. Patients [facility] Injector is Dr. Ratliff. Per her daughter she had a temperature yesterday. While in the ED patient was placed on BIPAP, patient uncomfortable and moved to nasal cannula where she was satting > 90. Patient refuses straight cath, discussed importance of urine collection. currently patient starting to feel better and breathing better,received tylenolol - History Source History Provided By: Patient Limitations to Obtaining History: No Limitations - Past Medical History Cardio/Vascular: Yes: AFIB, CHF, HTN Pulmonary: No: Asthma ...: No Endocrine: Yes: Hypothyroidism - Alcohol/Substance Use Hx Alcohol Use: No - Smoking History Smoking history: Former smoker Have you smoked in the past 12 months: No If you are a former smoker, when did you quit?: 40 yrs ago Home Medications - Allergies Allergies/Adverse Reactions: Allergies Allergy/AdvReac Type Severity Reaction Status Date / Time Penicillins Allergy Intermediate Swelling Verified 09/24/18 22:29 - Home Medications Home Medications: Ambulatory Orders Amlodipine Besylate 10 mg PO HS 04/10/17 Levothyroxine Sodium [Synthroid] 125 mcg PO DAILY 04/10/17 Rivaroxaban [Xarelto -] 20 mg PO HS 04/10/17 Review of Systems - Review of Systems Constitutional: reports: Fever Eyes: reports: No Symptoms HENT: reports: No Symptoms Neck: reports: No Symptoms Cardiovascular: reports: No Symptoms Respiratory: reports: Cough, SOB, SOB on Exertion Gastrointestinal: reports: Vomiting Genitourinary: reports: No Symptoms Musculoskeletal: reports: No Symptoms Integumentary: reports: No Symptoms Neurological: reports: No Symptoms Endocrine: reports: No Symptoms Hematology/Lymphatic: reports: No Symptoms Psychiatric: reports: No Symptoms Physical Exam Vital Signs: Vital Signs Temperature 98.6 F 11/26/18 10:00 Pulse Rate 98 H 11/26/18 10:00 Respiratory Rate 18 11/26/18 10:00 Blood Pressure 104/54 L 11/26/18 10:00 O2 Sat by Pulse Oximetry (%) 98 11/25/18 21:00 Constitutional: Yes: Well Nourished, No Distress, Calm, Obese Eyes: Yes: Conjunctiva Clear Neck: Yes: Supple, Trachea Midline Cardiovascular: Yes: Pulse Irregular Respiratory: Yes: Regular, On Nasal O2, Poor Air Entry Gastrointestinal: Yes: Normal Bowel Sounds, Soft Musculoskeletal: Yes: WNL Extremities: Yes: WNL Neurological: Yes: Alert, Oriented Psychiatric: Yes: Alert, Oriented Labs: CBC, BMP 11/26/18 05:40 11/26/18 05:40 Imaging - Results Chest X-ray: Report Reviewed, Image Reviewed Cat Scan: Report Reviewed, Image Reviewed Assessment/Plan Patient is a 73 yo female with a history of CHF, anemia, afib on xarelto ( s/p ablation one year ago), and CAD who presents for AMS and SOB. sob afib chf htn hypothyroidism obesity fever leukocytosis plan continue ceftriaxone resp support rest as per the team
--- NOTE | 2018-11-26 14:00 | ECHO ---
Name: DIEGO REDD Exam:Adult Echocardiogram Study Date: 11/26/2018 07:59 AM Age: 73 yrs Reason For Study: Afib Height: 62 in Weight: 285 lb BSA: 2.2 m2 MMode/2D Measurements & Calculations IVSd: 1.5 cm Ao root diam: 2.5 cm LVIDd: 4.3 cm LA dimension: 3.9 cm LVIDs: 2.8 cm ACS: 1.8 cm LVPWd: 1.7 cm EDV(Teich): 82.0 ml LVOT diam: 1.8 cm ESV(Teich): 30.3 ml Doppler Measurements & Calculations MV E max juan: 127.0 cm/sec MV A max juan: 30.6 cm/sec MV dec slope: 727.7 cm/sec2 MV E/A: 4.2 TR max juan: 270.6 cm/sec Med Peak E' Juan: 11.4 cm/sec TR max P.3 mmHg Med E/e': 11.1 Lat Peak E' Juan: 9.4 cm/sec Lat E/e': 13.6 Procedure The study was technically difficult with many images being suboptimal in quality. Left Ventricle The left ventricular size, thickness and function are normal. The left ventricle is not well visualiz ed. The left ventricular ejection fraction is normal. Regional wall motion abnormalities cannot be excluded d ue to limited visualization. Right Ventricle The right ventricle is not well visualized. Atria The left atrium is borderline dilated. Right atrium not well visualized. Mitral Valve The mitral valve is not well visualized. There is no mitral valve stenosis. There is mild to moderate mitral regurgitation. Tricuspid Valve The tricuspid valve is not well visualized. There is no tricuspid stenosis. There is Trace to mild tr icuspid regurgitation. Right ventricular systolic pressure is normal. Aortic Valve The aortic valve is not well visualized. No hemodynamically significant valvular aortic stenosis. No aortic regurgitation is present. Pulmonic Valve The pulmonic valve is not well visualized. Great Vessels The aortic root is normal size. Pericardium/Pleura There is no pericardial effusion. Interpretation Summary The study was technically difficult with many images being suboptimal in quality. The left ventricular size, thickness and function are normal The left ventricular ejection fraction is normal. The left ventricle is not well visualized. Regional wall motion abnormalities cannot be excluded due to limited visualization. The right ventricle is not well visualized. The left atrium is borderline dilated. Right atrium not well visualized. There is mild to moderate mitral regurgitation. There is Trace to mild tricuspid regurgitation. Right ventricular systolic pressure is normal. The aortic valve is not well visualized. MD Hai Gorman 11/26/2018 01:59 PM
--- NOTE | 2018-11-26 14:38 | PN ---
Progress Note (short form) - Note Progress Note: HPI: Pt reports shortness of breath without any chest pain or palpitations. Overnight pt denies any fevers Vital Signs Period Temp Pulse Resp BP Sys/Ray Pulse Ox Last 24 Hr 98.6 F-101.1 F 81-118 18-20 104-166/54-102 98-98 PE: Gen: Mild distress, awake, alert, orientedx3 HEENT: NC/AT, MATEO, MMM Neck: No JVD appreciated Lungs: Diffuse end-expiratory wheezing throughout with poor aeration to bases. No over rales heard. On 3LNC SpO2 95%. No accessory muscle use Cardiac: Irregular with normal rate, no murmurs appreciated ABD: Soft obese Nt/Nd, normoactive BS EXT: B/l chronic skin changes and thickening without any weeping or skin breaks appreciated. No erythema appreciated. Trace edema of ankles near socks Skin: See above Microbiology 11/25/18 14:12 Blood - Peripheral Venous Blood Culture - Preliminary NO GROWTH OBTAINED AFTER 24 HOURS, INCUBATION TO CONTINUE FOR 4 DAYS. 11/25/18 14:10 Blood - Peripheral Venous Blood Culture - Preliminary NO GROWTH OBTAINED AFTER 24 HOURS, INCUBATION TO CONTINUE FOR 4 DAYS. Active Medications Acetaminophen (Tylenol -) 650 mg PO Q4H PRN PRN Reason: FEVER Last Admin: 11/26/18 15:31 Dose: 650 mg Albuterol Sulfate (Ventolin 0.083% Nebulizer Soln -) 1 amp NEB Q4H PRN PRN Reason: SHORT OF BREATH/WHEEZING Last Admin: 11/26/18 16:25 Dose: 1 amp Ceftriaxone Sodium 1 gm/ (Dextrose) 100 mls @ 200 mls/hr IVPB DAILY [facility]; Protocol Last Admin: 11/26/18 09:46 Dose: 200 mls/hr Clindamycin Phosphate (Cleocin 600 Mg Premix Ivpb -) 600 mg in 50 mls @ 100 mls /hr IVPB Q6H-IV [facility]; Protocol Last Admin: 11/26/18 14:57 Dose: 100 mls/hr Levalbuterol HCl (Xopenex) 0.63 mg IH RTID [facility] Levothyroxine Sodium (Synthroid -) 125 mcg PO DAILY@0700 [facility] Last Admin: 11/26/18 10:40 Dose: Not Given Methylprednisolone Sodium Succinate (Solu-Medrol -) 40 mg IVPUSH Q8H-IV [facility] Last Admin: 11/26/18 17:32 Dose: 40 mg Metoprolol Tartrate (Lopressor -) 25 mg PO TID [facility] Last Admin: 11/26/18 14:49 Dose: 25 mg Metoprolol Tartrate (Lopressor Injection -) 5 mg IVPUSH Q4H PRN PRN Reason: HYPERTENSION Rivaroxaban (Xarelto) 20 mg PO DAILY@1800 [facility] Last Admin: 11/26/18 17:32 Dose: 20 mg A/P Sepsis 2/2 to suspected aspiration pneumonitis Acute COPD exacerbation HFpEF Paroxysmal Atrial fibrillation with RVR HTN HLD Hypothyroidism Venous stasis --Added on duoneb QID shad and Albuterol PRN q4h for any refractory wheezing --Monitor respiratory status and titrate O2 to SpO2 91-94% --Lasix 40mg IVP to patient given hypervolemic status which may improve breathing --ID recommendations appreciated: --Will add Zithromax for atypical coverage --continue Rocephin --f/u BCx; urine negative --Metoprolol to continue as patient is rate controlled (previously on Amiodarone ) --PRN IV Lopressor available for RVR episodes --Continue Xarelto --continue Synthroid 125mcg qdaily FEN: Fluids: Diuresing with re-evaluation per day Electrolyte abnormalities: None Nutrition: Sodium controlled PPX: DVt - Already on Xarelto Dispo: Continue telemetry monitoring Case discussed with Dr. Aleman and Dr. Tigist Hauser, Do - IM PGY-3
--- NOTE | 2018-11-26 15:20 | PN ---
Teaching Attending Note Name of Resident: Lawson Hauser ATTENDING PHYSICIAN STATEMENT I saw and evaluated the patient. I reviewed the resident's note and discussed the case with the resident. I agree with the resident's findings and plan as documented with exceptions below. SUBJECTIVE: Patient seen and examined. breathing improved. overall feels better. Denies any urinary symptoms. no fevers, chills. Urinating more with lasix. OBJECTIVE: Vital Signs Period Temp Pulse Resp BP Sys/Ray Pulse Ox Last 24 Hr 98.6 F-100.8 F 81-118 18-20 104-166/54-102 96-99 Intake & Output 11/23/18 11/24/18 11/25/18 11/26/18 23:59 23:59 23:59 23:59 Intake Total 250 100 Balance 250 100 Weight 253 lb 253 lb 6.4 oz General: sitting in bed, tachypnea, some use of accessory muscles of respiration Neck: soft, supple CVS:S1S2 irregular Chest: decreased air entry, scattered wheezing all over, no rales appreciated Abdomen:soft, obese, NT Extremities: chronic bilateral lower extremities hyperpigmentation, no pedal edema/warmth or erythema noted Home Medications Medication Instructions Recorded Amlodipine Besylate 10 mg PO HS 04/10/17 Levothyroxine Sodium [Synthroid] 125 mcg PO DAILY 04/10/17 Rivaroxaban [Xarelto -] 20 mg PO HS 04/10/17 Active Medications Albuterol Sulfate (Ventolin 0.083% Nebulizer Soln -) 1 amp NEB Q4H PRN PRN Reason: SHORT OF BREATH/WHEEZING Ceftriaxone Sodium 1 gm/ (Dextrose) 100 mls @ 200 mls/hr IVPB DAILY [facility]; Protocol Last Admin: 11/26/18 09:46 Dose: 200 mls/hr Clindamycin Phosphate (Cleocin 600 Mg Premix Ivpb -) 600 mg in 50 mls @ 100 mls /hr IVPB Q6H-IV [facility]; Protocol Last Admin: 11/26/18 14:57 Dose: 100 mls/hr Levalbuterol HCl (Xopenex) 0.63 mg IH RTID [facility] Levothyroxine Sodium (Synthroid -) 125 mcg PO DAILY@0700 [facility] Last Admin: 11/26/18 10:40 Dose: Not Given Methylprednisolone Sodium Succinate (Solu-Medrol -) 40 mg IVPUSH Q8H-IV [facility] Metoprolol Tartrate (Lopressor -) 25 mg PO TID [facility] Last Admin: 11/26/18 14:49 Dose: 25 mg Metoprolol Tartrate (Lopressor Injection -) 5 mg IVPUSH Q4H PRN PRN Reason: HYPERTENSION Rivaroxaban (Xarelto) 20 mg PO DAILY@1800 [facility] Last Admin: 11/25/18 20:43 Dose: 20 mg Laboratory Results - last 24 hr 11/25/18 11/25/18 11/25/18 14:12 23:40 23:40 WBC RBC Hgb Hct MCV MCH MCHC RDW Plt Count MPV Neutrophils % (Manual) 83.3 H Band Neutrophils % 4.2 Lymphocytes % (Manual) 7.3 L D Monocytes % (Manual) 5 D Eosinophils % (Manual) 0.0 Basophils % (Manual) 0.0 Myelocytes % (Man) 0 Promyelocytes % (Man) 0 Blast Cells % (Manual) 0 Metamyelocytes 0 Hypochromia 0 Platelet Estimate Normal Polychromasia 0 Poikilocytosis 0 Anisocytosis 0 Microcytosis 0 Macrocytosis 0 ESR Sodium Potassium Chloride Carbon Dioxide Anion Gap BUN Creatinine Est GFR (CKD-EPI)AfAm Est GFR (CKD-EPI)NonAf Random Glucose Hemoglobin A1c % Calcium Magnesium 2.0 Cancelled Total Bilirubin AST ALT Alkaline Phosphatase C-Reactive Protein Total Protein Albumin TSH 1.16 Urine Color Urine Appearance Urine pH Ur Specific [place] Urine Protein Urine Glucose (UA) Urine Ketones Urine Blood Urine Nitrite Urine Bilirubin Urine Urobilinogen Ur Leukocyte Esterase 11/26/18 11/26/18 11/26/18 05:40 05:40 05:40 WBC 16.2 H RBC 3.41 L Hgb 10.2 L Hct 31.0 L MCV 91.0 MCH 29.9 MCHC 32.9 RDW 15.4 Plt Count 181 MPV 9.1 Neutrophils % (Manual) Band Neutrophils % Lymphocytes % (Manual) Monocytes % (Manual) Eosinophils % (Manual) Basophils % (Manual) Myelocytes % (Man) Promyelocytes % (Man) Blast Cells % (Manual) Metamyelocytes Hypochromia Platelet Estimate Polychromasia Poikilocytosis Anisocytosis Microcytosis Macrocytosis ESR 90 H Sodium 136 Potassium 3.5 Chloride 101 Carbon Dioxide 27 Anion Gap 8 BUN 15.8 Creatinine 1.3 Est GFR (CKD-EPI)AfAm 46.47 Est GFR (CKD-EPI)NonAf 40.10 Random Glucose 116 H Hemoglobin A1c % 6.0 Calcium 8.4 L Magnesium Total Bilirubin 0.4 AST 19 ALT 22 Alkaline Phosphatase 67 C-Reactive Protein 14.9 H Total Protein 6.9 Albumin 3.0 L TSH Urine Color Urine Appearance Urine pH Ur Specific [place] Urine Protein Urine Glucose (UA) Urine Ketones Urine Blood Urine Nitrite Urine Bilirubin Urine Urobilinogen Ur Leukocyte Esterase 11/26/18 12:00 WBC RBC Hgb Hct MCV MCH MCHC RDW Plt Count MPV Neutrophils % (Manual) Band Neutrophils % Lymphocytes % (Manual) Monocytes % (Manual) Eosinophils % (Manual) Basophils % (Manual) Myelocytes % (Man) Promyelocytes % (Man) Blast Cells % (Manual) Metamyelocytes Hypochromia Platelet Estimate Polychromasia Poikilocytosis Anisocytosis Microcytosis Macrocytosis ESR Sodium Potassium Chloride Carbon Dioxide Anion Gap BUN Creatinine Est GFR (CKD-EPI)AfAm Est GFR (CKD-EPI)NonAf Random Glucose Hemoglobin A1c % Calcium Magnesium Total Bilirubin AST ALT Alkaline Phosphatase C-Reactive Protein Total Protein Albumin TSH Urine Color Yellow Urine Appearance Clear Urine pH 5.0 D Ur Specific [place] 1.018 Urine Protein Trace Urine Glucose (UA) Negative Urine Ketones Negative Urine Blood Negative Urine Nitrite Negative Urine Bilirubin Negative Urine Urobilinogen 0.2 Ur Leukocyte Esterase Negative Microbiology 11/25/18 14:12 Blood - Peripheral Venous Blood Culture - Preliminary NO GROWTH OBTAINED AFTER 24 HOURS, INCUBATION TO CONTINUE FOR 4 DAYS. 11/25/18 14:10 Blood - Peripheral Venous Blood Culture - Preliminary NO GROWTH OBTAINED AFTER 24 HOURS, INCUBATION TO CONTINUE FOR 4 DAYS. CXR and 2D echo results reviewed ASSESSMENT AND PLAN: 73 yof with PMhx of HFpEF, COPD, Afib(xarelto), HTN, HLD, hypothyroidism, chronic venous congestion of BLE, chronic recurrent UTIs admitted with dyspnea, fevers. -Acute hypoxic respiratory failure -Sepsis -Suspected aspiration PNA vs pneumonitis -Acute COPD exacerbation, likely from above -Suspected acute on chronic diastolic HF exacerbation -Afib with RVr, likely from above -HLD -HTN -Hypothyroidism -chronic venous congestion bilateral lower extremiteis -Chronic recurrent UTIs Plan: S/p bipap in ED. Additional lasix 40 mg IV x 1. Monitor volume status. Start IV solumedrol and xopenex. Discussed with Dr. Escoto. Emperic ceftriaxone/azithromycin, follow up blood cx. Urine studies neg. s/p amiodarone on admission. Metoprolol restarted this admission. HR improved. Defer further amiodarone to cardiology Hold amlodipine to allow room for rate controlling agent. Continue xarelto Continue levothyroxine. DVTPPX on xarelto Dispo pending clinical improvement. Discussed with patient, nursing and ID.
[2018-11-26] MEDS ORDERED: ACETAMINOPHEN 325 MG TABLET (FP) PO PRN (15:26)
[2018-11-26] MEDS: methylPREDNISolone NA SUCC 40 MG/1 ML VIAL IVPUSH SCH (17:32)
[2018-11-26] MEDS: RIVAROXABAN 20 MG TABLET PO SCH (17:32)
[2018-11-26] MEDS: LEVALBUTEROL HCL 0.63 MG/3 ML VIAL.NEB. IH SCH (21:21)
[2018-11-27] MEDS: methylPREDNISolone NA SUCC 40 MG/1 ML VIAL IVPUSH SCH ×2 (01:12→09:19)
[2018-11-27 06:18] LABS: BASO % 0.1 % (0-2.0); HEMATOCRIT 31.5 % (32.4-45.2); HEMOGLOBIN 10.1 GM/dL (10.7-15.3); LYMPH % 5.2 % (8-40); MCH 29.4 pg (25.7-33.7); MCHC 32.2 g/dl (32.0-36.0); MEAN CELL VOLUME 91.3 fl (80-96); MONO % 2.1 % (3.8-10.2); NEUT % 92.6 % (42.8-82.8); PLATELET COUNT 170 K/MM3 (134-434); RBC 3.45 M/mm3 (3.60-5.2); RDW 15.3 % (11.6-15.6)
[2018-11-27] MEDS: LEVOTHYROXINE NA 125 MCG TABLET (FP) PO SCH (06:23)
[2018-11-27] MEDS: METOPROLOL TARTRATE 25 MG TABLET (FP) PO SCH (06:23)
[2018-11-27 06:50] LABS: BLOOD UREA NITROGEN 21.9 mg/dL (7-18); CALCIUM 8.3 mg/dL (8.5-10.1); CREATININE 1.2 mg/dL (0.55-1.3); MAGNESIUM 2.6 mg/dL (1.8-2.4); POTASSIUM 3.8 mmol/L (3.5-5.1)
[2018-11-27] MEDS: LEVALBUTEROL HCL 0.63 MG/3 ML VIAL.NEB. IH SCH ×4 (08:45→19:54)
[2018-11-27] MEDS ORDERED: cefTRIAXone SODIUM 1 GM VIAL ONE (08:46)
[2018-11-27] MEDS ORDERED: DEXTROSE 5%-WATER 200 ML IVPB ONE (08:47)
[2018-11-27] MEDS: CEFTRIAXONE 1 GM in DEXTROSE 5%-WATER 100 ML IVPB SCH (09:17)
--- NOTE | 2018-11-27 09:37 | PN ---
Progress Note (short form) - Note Progress Note: HPI: No overnight events noted. Pt with improved breathing and without fevers overnight. Vital Signs Period Temp Pulse Resp BP Sys/Ray Pulse Ox Last 24 Hr 97.8 F-101.1 F 83-98 18-20 104-142/54-84 99 CBC, BMP 11/27/18 05:42 11/27/18 05:42 PE: Gen: NAD, awake, alert, orientedx3 HEENT: NC/AT, MATEO, MMM Neck: No JVD appreciated Lungs: Improved aeration to bases. Slight end-expiratory wheezing markedly improved. No over rales heard. On 2LNC SpO2 95%. No accessory muscle use Cardiac: Irregular with normal rate, no murmurs appreciated ABD: Soft obese Nt/Nd, normoactive BS EXT: B/l chronic skin changes and thickening without any weeping or skin breaks appreciated. No erythema appreciated. No edema today Skin: See above Microbiology 11/26/18 12:00 Urine - Urine Clean Catch Urine Culture - Final NO GROWTH OBTAINED 11/25/18 14:12 Blood - Peripheral Venous Blood Culture - Preliminary NO GROWTH OBTAINED AFTER 24 HOURS, INCUBATION TO CONTINUE FOR 4 DAYS. 11/25/18 14:10 Blood - Peripheral Venous Blood Culture - Preliminary NO GROWTH OBTAINED AFTER 24 HOURS, INCUBATION TO CONTINUE FOR 4 DAYS. Active Medications Acetaminophen (Tylenol -) 650 mg PO Q4H PRN PRN Reason: FEVER Last Admin: 11/26/18 15:31 Dose: 650 mg Albuterol Sulfate (Ventolin 0.083% Nebulizer Soln -) 1 amp NEB Q4H PRN PRN Reason: SHORT OF BREATH/WHEEZING Last Admin: 11/26/18 16:25 Dose: 1 amp Ceftriaxone Sodium 1 gm/ (Dextrose) 100 mls @ 200 mls/hr IVPB DAILY [facility]; Protocol Last Admin: 11/27/18 09:17 Dose: 200 mls/hr Azithromycin 250 mg/ Dextrose 250 mls @ 250 mls/hr IVPB DAILY [facility] Levalbuterol HCl (Xopenex) 0.63 mg IH RTID [facility] Last Admin: 11/26/18 21:21 Dose: 0.63 mg Levothyroxine Sodium (Synthroid -) 125 mcg PO DAILY@0700 [facility] Last Admin: 11/27/18 06:23 Dose: 125 mcg Methylprednisolone Sodium Succinate (Solu-Medrol -) 40 mg IVPUSH Q8H-IV [facility] Last Admin: 11/27/18 09:19 Dose: 40 mg Metoprolol Tartrate (Lopressor -) 25 mg PO TID [facility] Last Admin: 11/27/18 06:23 Dose: 25 mg Metoprolol Tartrate (Lopressor Injection -) 5 mg IVPUSH Q4H PRN PRN Reason: HYPERTENSION Rivaroxaban (Xarelto) 20 mg PO DAILY@1800 [facility] Last Admin: 11/26/18 17:32 Dose: 20 mg A/P Sepsis 2/2 to suspected aspiration pneumonitis Acute COPD exacerbation HFpEF Paroxysmal Atrial fibrillation with RVR HTN HLD Hypothyroidism Venous stasis --Markedly improved clinical examination today --Continue with duoneb QID shad and Albuterol PRN q4h for any refractory wheezing --Monitor respiratory status and titrate O2 to SpO2 91-94% --Medrol to decrease to 40mg BID (from q8h) --Can hold off on Lasix today and monitor volume status daily --ID recommendations appreciated: --Continue Zithromax 250mg (day 2) for atypical coverage --continue Rocephin (day 2) --f/u BCx; urine negative --Metoprolol to continue as patient is rate controlled (previously on Amiodarone ) --PRN IV Lopressor available for RVR episodes --Continue Xarelto --continue Synthroid 125mcg qdaily FEN: Fluids: PO; euvolemic today Electrolyte abnormalities: None Nutrition: Sodium controlled PPX: DVt - Already on Xarelto Dispo: Continue telemetry monitoring Case discussed with Dr. Ash Hauser, Do - IM PGY-3
[2018-11-27 09:56] LABS: ANISOCYTOSIS 1+; MACROCYTOSIS 0; PLATELET ESTIMATE NORMAL
[2018-11-27] MEDS ORDERED: AMIODARONE HCL 200 MG TABLET (FP) PO SCH (10:00)
[2018-11-27] MEDS ORDERED: AZITHROMYCIN IVPB 250 MG in DEXTROSE 5%-WATER - 250 ML IVPB SCH (10:00)
--- NOTE | 2018-11-27 11:56 | PN ---
Progress Note, Physician Chief Complaint: Pt A&Ox3; no chest pain; no palpitations or dizziness. History of Present Illness: 73 yr old black woman with PMH of CHF, anemia, Afib (s/p 3 ablations, was on amiodarone until 05/2018; currently on metoprolol and xarelto), hypothyroid, PVD, morbid obesity, who presents to the ER with complaints of fever and SOB since yesterday, progressively worse today. The daughter states that the patient was eating yesterday and "may" have "choked and vomited a little". She began to develop a fever yesterday tmax 102. This morning, she woke up and felt very short of breath. no cp. Hx is limited 2/2 clinical condition. - Current Medication List Current Medications: Active Medications Acetaminophen (Tylenol -) 650 mg PO Q4H PRN PRN Reason: FEVER Last Admin: 11/26/18 15:31 Dose: 650 mg Albuterol Sulfate (Ventolin 0.083% Nebulizer Soln -) 1 amp NEB Q4H PRN PRN Reason: SHORT OF BREATH/WHEEZING Last Admin: 11/26/18 16:25 Dose: 1 amp Ceftriaxone Sodium 1 gm/ (Dextrose) 100 mls @ 200 mls/hr IVPB DAILY [facility]; Protocol Last Admin: 11/27/18 09:17 Dose: 200 mls/hr Azithromycin 250 mg/ Dextrose 250 mls @ 250 mls/hr IVPB DAILY [facility] Last Admin: 11/27/18 11:22 Dose: 250 mls/hr Levalbuterol HCl (Xopenex) 0.63 mg IH RTID [facility] Last Admin: 11/27/18 08:45 Dose: 0.63 mg Levothyroxine Sodium (Synthroid -) 125 mcg PO DAILY@0700 [facility] Last Admin: 11/27/18 06:23 Dose: 125 mcg Methylprednisolone Sodium Succinate (Solu-Medrol -) 40 mg IVPUSH BID [facility] Metoprolol Tartrate (Lopressor -) 25 mg PO TID [facility] Last Admin: 11/27/18 06:23 Dose: 25 mg Metoprolol Tartrate (Lopressor Injection -) 5 mg IVPUSH Q4H PRN PRN Reason: HYPERTENSION Rivaroxaban (Xarelto) 20 mg PO DAILY@1800 [facility] Last Admin: 11/26/18 17:32 Dose: 20 mg - Objective Vital Signs: Vital Signs Temperature 97.8 F 11/27/18 06:00 Pulse Rate 90 11/27/18 08:15 Respiratory Rate 18 11/27/18 08:15 Blood Pressure 117/84 11/27/18 08:15 O2 Sat by Pulse Oximetry (%) 99 11/26/18 21:00 Constitutional: Yes: No Distress Eyes: Yes: WNL HENT: Yes: WNL Cardiovascular: Yes: Pulse Irregular, S1 (varies in intensity), S2 Respiratory: Yes: WNL Gastrointestinal: Yes: Soft ...Rectal Exam: Yes: Deferred Genitourinary: No: Anuria Breast(s): Yes: WNL Musculoskeletal: Yes: Muscle Weakness Extremities: Yes: Cool, Other Edema: Yes Edema: LLE: 2+ (nonpitting, hyperpigmented, feet-->knees), RLE: 2+ Peripheral Pulses WNL: No Peripheral Pulses: Left Doralis Pedis: 1+, Right Dorsalis Pedis: 1+ Integumentary: Yes: Venous Stasis Changes, Other (see "extremities") Neurological: Yes: WNL Psychiatric: Yes: Alert, Oriented Labs: CBC, BMP 11/27/18 05:42 11/27/18 05:42 INR, PTT INR 1.38 (0.83-1.09) H 11/25/18 14:12 Abnormal Lab Results 11/27/18 11/27/18 05:42 05:42 WBC 15.0 H RBC 3.45 L Hgb 10.1 L Hct 31.5 L Absolute Neuts (auto) 13.9 H Neutrophils % 92.6 H Neutrophils % (Manual) 87.8 H Lymphocytes % 5.2 L Monocytes % 2.1 L Monocytes % (Manual) 2 L Anion Gap 6 L BUN 21.9 H Random Glucose 158 H Calcium 8.3 L Magnesium 2.6 H - ....Imaging Chest X-ray: Image Reviewed (no acute pathology) Ultrasound: Image Reviewed (ECHO: normal VLEF; mildly dilated atriae; moderate MR) EKG: Image Reviewed (AF) Problem List - Problems (1) Sepsis Assessment/Plan: On IV antibiotics; f/u workup. Antipyretics as needed (avoid NSAIDS). Code(s): A41.9 - SEPSIS, UNSPECIFIED ORGANISM Qualifiers: Sepsis type: sepsis due to unspecified organism Sepsis acute organ dysfunction status: without acute organ dysfunction Qualified Code(s): A41.9 - Sepsis, unspecified organism (2) Afib Assessment/Plan: EKG: AF; heart rate better controlled when afebrile Pt says amiodarone dose was lowered over several weeks from 200 mg to 50 mg daily, then stopped completely in 05/2018.Stress MIBI done 2018 reportedly showed no ischemia. She was continued on metoprolol. Plan: change to long-acting metoprolol (no hx asthma). Continue DOAC for anticoagulation. ECHO: normal LVEF; mild borderline LAE; mild-moderate MR; trace to mild TR. Code(s): I48.91 - UNSPECIFIED ATRIAL FIBRILLATION (3) Cellulitis Assessment/Plan: for LE doppler. Code(s): L03.90 - CELLULITIS, UNSPECIFIED Qualifiers: Site of cellulitis: extremity Site of cellulitis of extremity: lower extremity Laterality: left Qualified Code(s): L03.116 - Cellulitis of left lower limb (4) HTN (hypertension) Assessment/Plan: Given furosemide for CHF. Stopped amlodipine.; increased dose of metoprolol (and changed to long-acting) for CHF and HR. Code(s): I10 - ESSENTIAL (PRIMARY) HYPERTENSION (5) Hypothyroid Assessment/Plan: TSH 1.16; on Synthroid. Code(s): E03.9 - HYPOTHYROIDISM, UNSPECIFIED (6) UTI (urinary tract infection), bacterial Code(s): N39.0 - URINARY TRACT INFECTION, SITE NOT SPECIFIED; A49.9 - BACTERIAL INFECTION, UNSPECIFIED
--- NOTE | 2018-11-27 15:21 | PN ---
Teaching Attending Note Name of Resident: Lawson Hauser ATTENDING PHYSICIAN STATEMENT I saw and evaluated the patient. I reviewed the resident's note and discussed the case with the resident. I agree with the resident's findings and plan as documented with exceptions below. SUBJECTIVE: Patient seen and examined, breathing markedly improved. no new complaints. OBJECTIVE: Vital Signs Period Temp Pulse Resp BP Sys/Ray Pulse Ox Last 24 Hr 97.8 F-99.1 F 70-94 18-20 104-128/55-84 99 Intake & Output 11/24/18 11/25/18 11/26/18 11/27/18 23:59 23:59 23:59 23:59 Intake Total 250 320 0 Balance 250 320 0 Weight 253 lb 253 lb 6.4 oz 251 lb 12.8 oz General: sitting in bed, improved breathing, able to talk in full sentences Neck: soft, supple Chest: improved air entry, no wheezing today Abdomen:soft, obese, NT Extremities: Chronic lower extremity hyperpigmentation, no active swelling or erythema noted Psych: pleasant, co-operative Home Medications Medication Instructions Recorded Amlodipine Besylate 10 mg PO HS 04/10/17 Levothyroxine Sodium [Synthroid] 125 mcg PO DAILY 04/10/17 Rivaroxaban [Xarelto -] 20 mg PO HS 04/10/17 Active Medications Acetaminophen (Tylenol -) 650 mg PO Q4H PRN PRN Reason: FEVER Last Admin: 11/26/18 15:31 Dose: 650 mg Albuterol Sulfate (Ventolin 0.083% Nebulizer Soln -) 1 amp NEB Q4H PRN PRN Reason: SHORT OF BREATH/WHEEZING Last Admin: 11/26/18 16:25 Dose: 1 amp Ceftriaxone Sodium 1 gm/ (Dextrose) 100 mls @ 200 mls/hr IVPB DAILY [facility]; Protocol Last Admin: 11/27/18 09:17 Dose: 200 mls/hr Azithromycin 250 mg/ Dextrose 250 mls @ 250 mls/hr IVPB DAILY [facility] Last Admin: 11/27/18 11:22 Dose: 250 mls/hr Levalbuterol HCl (Xopenex) 0.63 mg IH RTID [facility] Last Admin: 11/27/18 14:50 Dose: 0.63 mg Levothyroxine Sodium (Synthroid -) 125 mcg PO DAILY@0700 [facility] Last Admin: 11/27/18 06:23 Dose: 125 mcg Methylprednisolone Sodium Succinate (Solu-Medrol -) 40 mg IVPUSH BID [facility] Metoprolol Succinate (Toprol Xl -) 100 mg PO DAILY [facility] Last Admin: 11/27/18 14:36 Dose: 100 mg Metoprolol Tartrate (Lopressor Injection -) 5 mg IVPUSH Q4H PRN PRN Reason: HYPERTENSION Rivaroxaban (Xarelto) 20 mg PO DAILY@1800 [facility] Last Admin: 11/26/18 17:32 Dose: 20 mg Laboratory Results - last 24 hr 11/27/18 11/27/18 05:42 05:42 WBC 15.0 H RBC 3.45 L Hgb 10.1 L Hct 31.5 L MCV 91.3 MCH 29.4 MCHC 32.2 RDW 15.3 Plt Count 170 MPV 9.0 Absolute Neuts (auto) 13.9 H Neutrophils % 92.6 H Neutrophils % (Manual) 87.8 H Band Neutrophils % 0.0 Lymphocytes % 5.2 L Lymphocytes % (Manual) 9.2 D Monocytes % 2.1 L Monocytes % (Manual) 2 L Eosinophils % 0.0 Eosinophils % (Manual) 0.0 Basophils % 0.1 Basophils % (Manual) 0.0 Myelocytes % (Man) 0 Promyelocytes % (Man) 0 Blast Cells % (Manual) 0 Nucleated RBC % 0 Metamyelocytes 0 Hypochromia 0 Platelet Estimate Normal Polychromasia 1+ Poikilocytosis 0 Anisocytosis 1+ Microcytosis 1+ Macrocytosis 0 Sodium 136 Potassium 3.8 Chloride 102 Carbon Dioxide 29 Anion Gap 6 L BUN 21.9 H Creatinine 1.2 Est GFR (CKD-EPI)AfAm 51.20 Est GFR (CKD-EPI)NonAf 44.17 Random Glucose 158 H Calcium 8.3 L Magnesium 2.6 H 2D echo results reviewed ASSESSMENT AND PLAN: 73 yof with PMhx of HFpEF, COPD, Afib(xarelto), HTN, HLD, hypothyroidism, chronic venous congestion of BLE, chronic recurrent UTIs admitted with dyspnea, fevers. -Acute hypoxic respiratory failure -Sepsis -Suspected aspiration PNA vs pneumonitis -Acute COPD exacerbation, likely from above -Suspected acute on chronic diastolic HF exacerbation -Afib with RVr, likely from above -HLD -HTN -Hypothyroidism -chronic venous congestion bilateral lower extremiteis -Chronic recurrent UTIs Plan: S/p bipap in ED. Additional lasix 40 mg IV x 1. Monitor volume status. taper solumedrol, continue xopenex QTC 477, d/c azithromycin. Doxycycline for additional [address] chest neg for infiltrate. Dc ceftriaxone. blood cx neg so far. Urine studies neg. s/p amiodarone on admission. Metoprolol restarted this admission. Cardiology input noted, discussed with Dr. Burleson, metoprolol increased. Hold amlodipine to allow room for rate controlling agent. Continue xarelto Continue levothyroxine. DVTPPX on xarelto Dispo PT eval OOB, will need home oxygen needs assessment on dc. Discussed with patient, nursing.
[2018-11-27] MEDS ORDERED: FUROSEMIDE 40 MG/4 ML INJECTABLE VIAL IVPUSH ONE (15:26)
[2018-11-27] MEDS: RIVAROXABAN 20 MG TABLET PO SCH (17:51)
--- NOTE | 2018-11-27 18:31 | PN ---
Progress Note, Physician History of Present Illness: Pt seen and examined, chart reviewed, labs/imaging results noted. Pt is alert, afebrile >24hrs. She states she feels much better. Has no specific complaints. - Current Medication List Current Medications: Active Medications Acetaminophen (Tylenol -) 650 mg PO Q4H PRN PRN Reason: FEVER Last Admin: 11/26/18 15:31 Dose: 650 mg Albuterol Sulfate (Ventolin 0.083% Nebulizer Soln -) 1 amp NEB Q4H PRN PRN Reason: SHORT OF BREATH/WHEEZING Last Admin: 11/26/18 16:25 Dose: 1 amp Doxycycline Hyclate (Vibramycin -) 100 mg PO BID@1000,1800 [facility] Stop: 12/02/18 18:01 Levalbuterol HCl (Xopenex) 0.63 mg IH RTID [facility] Last Admin: 11/27/18 14:50 Dose: 0.63 mg Levothyroxine Sodium (Synthroid -) 125 mcg PO DAILY@0700 [facility] Last Admin: 11/27/18 06:23 Dose: 125 mcg Methylprednisolone Sodium Succinate (Solu-Medrol -) 40 mg IVPUSH BID [facility] Metoprolol Succinate (Toprol Xl -) 100 mg PO DAILY [facility] Last Admin: 11/27/18 14:36 Dose: 100 mg Metoprolol Tartrate (Lopressor Injection -) 5 mg IVPUSH Q4H PRN PRN Reason: HYPERTENSION Rivaroxaban (Xarelto) 20 mg PO DAILY@1800 [facility] Last Admin: 11/27/18 17:51 Dose: 20 mg - Objective Vital Signs: Vital Signs Temperature 98 F 11/27/18 10:00 Pulse Rate 70 11/27/18 14:00 Respiratory Rate 18 11/27/18 14:00 Blood Pressure 118/68 11/27/18 14:00 O2 Sat by Pulse Oximetry (%) 99 11/26/18 21:00 Constitutional: Yes: No Distress, Calm Cardiovascular: Yes: Regular Rate and Rhythm Respiratory: Yes: CTA Bilaterally, On Nasal O2 Gastrointestinal: Yes: Normal Bowel Sounds, Soft, Abdomen, Obese Genitourinary: Yes: WNL Extremities: Yes: WNL Integumentary: Yes: Other (b/l LE edema, no erythema/warmth/drainage) Neurological: Yes: Alert, Oriented Labs: CBC, BMP 11/27/18 05:42 11/27/18 05:42 INR, PTT INR 1.38 (0.83-1.09) H 11/25/18 14:12 Microbiology 11/27/18 08:00 Sputum - Expectorated Gram Stain - Final 11/25/18 14:12 Blood - Peripheral Venous Blood Culture - Preliminary NO GROWTH OBTAINED AFTER 48 HOURS, INCUBATION TO CONTINUE FOR 3 DAYS. 11/25/18 14:10 Blood - Peripheral Venous Blood Culture - Preliminary NO GROWTH OBTAINED AFTER 48 HOURS, INCUBATION TO CONTINUE FOR 3 DAYS. 11/26/18 12:00 Urine - Urine Clean Catch Urine Culture - Final NO GROWTH OBTAINED - ....Imaging Chest X-ray: Report Reviewed Cat Scan: Report Reviewed Problem List - Problems (1) Sepsis Code(s): A41.9 - SEPSIS, UNSPECIFIED ORGANISM Qualifiers: Sepsis type: sepsis due to unspecified organism Sepsis acute organ dysfunction status: without acute organ dysfunction Qualified Code(s): A41.9 - Sepsis, unspecified organism (2) Afib Code(s): I48.91 - UNSPECIFIED ATRIAL FIBRILLATION (3) HTN (hypertension) Code(s): I10 - ESSENTIAL (PRIMARY) HYPERTENSION (4) Hypothyroid Code(s): E03.9 - HYPOTHYROIDISM, UNSPECIFIED Assessment/Plan Patient is a 73 yo female with a history of CHF, anemia, afib on xarelto ( s/p ablation one year ago), and CAD who presents for AMS and SOB. sob afib chf htn hypothyroidism obesity fever leukocytosis -- wbc trending down, afebrile >24hrs, less short of breath -- CXR/CT without infiltrates, blood and urine cultures no growth -- Ceftriaxone d/c'd, azithromycin switched to doxycycline (due to prolonged QTc ) -- continue monitor wbc/temp trend, O2 sats -- pt is currently alert, without distress
[2018-11-27] MEDS ORDERED: methylPREDNISolone NA SUCC 40 MG/1 ML VIAL IVPUSH SCH (22:00)
[2018-11-28] MEDS: LEVOTHYROXINE NA 125 MCG TABLET (FP) PO SCH (06:43)
[2018-11-28] MEDS: LEVALBUTEROL HCL 0.63 MG/3 ML VIAL.NEB. IH SCH ×2 (07:27→13:47)
[2018-11-28 07:40] LABS: BLOOD UREA NITROGEN 35.4 mg/dL (7-18); CREATININE 1.3 mg/dL (0.55-1.3); POTASSIUM 3.9 mmol/L (3.5-5.1)
[2018-11-28 07:42] LABS: HEMATOCRIT 35.6 % (32.4-45.2); HEMOGLOBIN 11.4 GM/dL (10.7-15.3); MCH 29.5 pg (25.7-33.7); MCHC 32.1 g/dl (32.0-36.0); MEAN CELL VOLUME 91.7 fl (80-96); MEAN PLT VOLUME 10.1 fl (7.5-11.1); PLATELET COUNT 242 K/MM3 (134-434); RBC 3.88 M/mm3 (3.60-5.2); RDW 15.1 % (11.6-15.6); WHITE BLOOD COUNT 17.3 K/mm3 (4.0-10.0)
[2018-11-28] MEDS ORDERED: DOXYCYCLINE HYCLATE 100 MG CAPSULE PO SCH (10:00)
[2018-11-28] MEDS ORDERED: predniSONE 20 MG TABLET (UD) PO SCH (10:00)
[2018-11-28 10:08] VITALS: BP 129/59; PULSE 83; TEMP 98
--- NOTE | 2018-11-28 10:40 | DS ---
Physical Exam: SUBJECTIVE: Pt markedly improved and moving around freely without wheezing. Denies shortness ofb reath, chest pain, palpitations, fever/chills, diarrhea. OBJECTIVE: Vital Signs Period Temp Pulse Resp BP Sys/Ray Pulse Ox Last 24 Hr 98 F-98.1 F 69-112 18-20 118-130/59-75 94-98 PHYSICAL EXAM Gen: NAD, awake, alert, orientedx3 HEENT: NC/AT, MATEO, MMM Neck: No JVD appreciated Lungs: Improved aeration to bases. No wheezing. On RA Cardiac: Irregular with normal rate, no murmurs appreciated ABD: Soft obese Nt/Nd, normoactive BS EXT: B/l chronic skin changes and thickening without any weeping or skin breaks appreciated. No erythema No edema Skin: See above LABS Laboratory Results - last 24 hr 11/27/18 11/28/18 11/28/18 05:42 05:35 05:35 WBC 17.3 H RBC 3.88 Hgb 11.4 Hct 35.6 MCV 91.7 MCH 29.5 MCHC 32.1 RDW 15.1 Plt Count 242 D MPV 10.1 D Neutrophils % (Manual) 87.8 H Band Neutrophils % 0.0 Lymphocytes % (Manual) 9.2 D Monocytes % (Manual) 2 L Eosinophils % (Manual) 0.0 Basophils % (Manual) 0.0 Myelocytes % (Man) 0 Promyelocytes % (Man) 0 Blast Cells % (Manual) 0 Metamyelocytes 0 Hypochromia 0 Platelet Estimate Normal Polychromasia 1+ Poikilocytosis 0 Anisocytosis 1+ Microcytosis 1+ Macrocytosis 0 Sodium 137 Potassium 3.9 Chloride 101 Carbon Dioxide 25 Anion Gap 11 BUN 35.4 H Creatinine 1.3 Est GFR (CKD-EPI)AfAm 46.47 Est GFR (CKD-EPI)NonAf 40.10 Random Glucose 151 H Calcium 9.0 Active Medications Acetaminophen (Tylenol -) 650 mg PO Q4H PRN PRN Reason: FEVER Last Admin: 11/26/18 15:31 Dose: 650 mg Albuterol Sulfate (Ventolin 0.083% Nebulizer Soln -) 1 amp NEB Q4H PRN PRN Reason: SHORT OF BREATH/WHEEZING Last Admin: 11/26/18 16:25 Dose: 1 amp Doxycycline Hyclate (Vibramycin -) 100 mg PO BID@1000,1800 [facility] Stop: 12/02/18 18:01 Last Admin: 11/28/18 10:57 Dose: 100 mg Levalbuterol HCl (Xopenex) 0.63 mg IH RTID [facility] Last Admin: 11/28/18 07:27 Dose: 0.63 mg Levothyroxine Sodium (Synthroid -) 125 mcg PO DAILY@0700 [facility] Last Admin: 11/28/18 06:43 Dose: 125 mcg Metoprolol Succinate (Toprol Xl -) 100 mg PO DAILY [facility] Last Admin: 11/28/18 10:57 Dose: 100 mg Metoprolol Tartrate (Lopressor Injection -) 5 mg IVPUSH Q4H PRN PRN Reason: HYPERTENSION Prednisone (Deltasone -) 60 mg PO DAILY [facility] Last Admin: 11/28/18 10:57 Dose: 60 mg Rivaroxaban (Xarelto) 20 mg PO DAILY@1800 [facility] Last Admin: 11/27/18 17:51 Dose: 20 mg Microbiology 11/27/18 08:00 Sputum - Expectorated Gram Stain - Final 11/27/18 08:00 Sputum - Expectorated Sputum Culture - Preliminary NORMAL RESPIRATORY CODY 11/25/18 14:12 Blood - Peripheral Venous Blood Culture - Preliminary NO GROWTH OBTAINED AFTER 48 HOURS, INCUBATION TO CONTINUE FOR 3 DAYS. 11/25/18 14:10 Blood - Peripheral Venous Blood Culture - Preliminary NO GROWTH OBTAINED AFTER 48 HOURS, INCUBATION TO CONTINUE FOR 3 DAYS. 11/26/18 12:00 Urine - Urine Clean Catch Urine Culture - Final NO GROWTH OBTAINED Imaging: CT Chest noncontrast: IMPRESSION: 1. Cardiomegaly and possible mild congestion. 2. Bibasilar atelectasis, left greater than right. 3. No evidence of pneumonia. Please see above discussion. HOSPITAL COURSE: Date of Admission:11/25/18 Date of Discharge: 11/28/18 73yo F who was admitted on 11/25/18 due to increased shortness of breath and confusion after notable vomiting NB/NB emesis. Upon arrival pt was confused and it was noted that she was in Atrial fibrillation with RVR (known history). Pt was previously on Amiodarone per her offshoring manager Dr. Ratliff, however it was changed to Toprol XL 100mg qdaily (with Lopressor breakthrough IVP) which resulted in greater control of her rate. Upon further investigation pt was noted to be wheezing and was given steroids, duoneb, xopenex, and treated with antibiotics (Doxycycline 100mg BID due to elongated Qtc of 477ms). Pt markedly improved on her subsequent hospital course and remained alert and oriented throughout her stay. She received an ambulatory oxygenation evaluation which deemed she does not need any oxygen for home and is being discharged in stable condition back home today. She is to take a prednisone taper at home which is seen below. She is to continue with her Lasix 20mg qdaily and Aldactone 25mg MoWeFr PO. She wishes to switch her outpatient physicians to closer to home and Dr. eLslie, Dr. Vilchis ( for PFT and suspected COPD mgmt), and Dr. Burleson (Afib mgmt) were provided to her. Minutes to complete discharge: 35 Discharge Summary Problems reviewed: Yes Reason For Visit: COPD exacerbation Current Active Problems Sepsis (Acute) Condition: Improved - Instructions Diet, Activity, Other Instructions: You were seen here due to your shortness of breath. You were treated with steroids and a short course of antibiotics. You improved and do not need oxygen when you go home. You were seen by a offshoring manager (Dr. Burleson) because your Atrial fibrillation was fast at times, however this was likely due to your breathing and some medications. MEDICATIONS: Please continue Toprol XL 100mg daily for your heart rate Please continue your Xarelto 20mg daily Please continue your Synthroid 125mcg daily You will be given Aldactone 25mg to take on SATURDAY, SATURDAY, and Fridays ( once per those days) You will be given Lasix 20mg once DAILY --These are water pills which will prevent water from being retained --It is important to take them everyday especially while on steroids You will be given a short course of steroids to take and taper down. It is EXTREMELY important to continue until the end of the regiment 60mg for 2 days, 50mg for 2 days, 40mg for 2 days, 30mg for 2 days, 20 mg for 2 days, 10 mg for 2 days and then STOP FOLLOW-UP: Please follow-up with a primary care provider: Dr. Leslie has an office down in [place] near the hospital and her information has been provided to you Please follow-up with Dr. Burleson who is the offshoring manager who saw you regarding your Atrial fibrillation Please follow-up with Dr. Vilcihs or another medical secretary to get your pulmonary function tests assessed. Referrals: Piotr Leslie MD [Staff Physician] - 1 Week Benjamin Burleson MD [Staff Physician] - Epi Vilchis MD [Staff Physician] - Disposition: HOME - Home Medications Comprehensive Discharge Medication List: Ambulatory Orders Levothyroxine Sodium [Synthroid] 125 mcg PO DAILY 04/10/17 Rivaroxaban [Xarelto -] 20 mg PO HS 04/10/17 Albuterol Sulfate Inhaler - [Ventolin HFA Inhaler -] 1 - 2 inh PO Q6H PRN #1 inhaler 11/28/18 Furosemide [Lasix] 20 mg PO DAILY #30 tablet 11/28/18 Metoprolol Succinate [Toprol XL -] 100 mg PO DAILY #30 tab.sr.24h 11/28/18 Prednisone See Taper PO DAILY #42 tablet 11/28/18 Spironolactone [Aldactone] 25 mg PO MOWEFR #20 tablet 11/28/18 This patient is new to me today: No Emergency Visit: Yes ED Registration Date: 11/25/18 Care time: The patient presented to the Emergency Department on the above date and was hospitalized for further evaluation of their emergent condition. Critical Care patient: No - Discharge Referral Referred to [facility] No ATTENDING PHYSICIAN STATEMENT I saw and evaluated the patient. I reviewed the resident's note and discussed the case with the resident. I agree with the resident's findings and plan as documented. SUBJECTIVE: OBJECTIVE: ASSESSMENT AND PLAN:
--- NOTE | 2018-11-28 12:03 | PN ---
Teaching Attending Note Name of Resident: Lawson Hauser ATTENDING PHYSICIAN STATEMENT I saw and evaluated the patient. I reviewed the resident's note and discussed the case with the resident. I agree with the resident's findings and plan as documented with exceptions below. SUBJECTIVE: Patient seen and examined. breathing markedly improved, ambulating with respiratory therapist with no concerns. eager to go home. OBJECTIVE: Vital Signs Period Temp Pulse Resp BP Sys/Ray Pulse Ox Last 24 Hr 98 F-98.1 F 69-112 18-20 118-130/59-75 94-98 Intake & Output 11/25/18 11/26/18 11/27/18 11/28/18 23:59 23:59 23:59 23:59 Intake Total 250 320 550 190 Balance 250 320 550 190 Weight 253 lb 253 lb 6.4 oz 251 lb 12.8 oz 254 lb General: ambulating in hallway, no tachypnea or use of accessory muscles of respiration neck: soft, supple Chest; improved air entry, no rales or wheezing Abdomen:Soft, obese, NT extremities: unchanged chronic dermatitis/hyperpigmentation findings Home Medications Medication Instructions Recorded Levothyroxine Sodium [Synthroid] 125 mcg PO DAILY 04/10/17 Rivaroxaban [Xarelto -] 20 mg PO HS 04/10/17 Albuterol Sulfate Inhaler - 1 - 2 inh PO Q6H PRN #1 inhaler 11/28/18 [Ventolin HFA Inhaler -] Doxycycline Hyclate 100 mg PO BID #7 tablet 11/28/18 Furosemide [Lasix] 20 mg PO DAILY #30 tablet 11/28/18 Metoprolol Succinate [Toprol XL -] 100 mg PO DAILY #30 tab.sr.24h 11/28/18 Prednisone See Taper PO DAILY #42 tablet 11/28/18 Spironolactone [Aldactone] 25 mg PO MOWEFR #20 tablet 11/28/18 Laboratory Results - last 24 hr 11/28/18 11/28/18 05:35 05:35 WBC 17.3 H RBC 3.88 Hgb 11.4 Hct 35.6 MCV 91.7 MCH 29.5 MCHC 32.1 RDW 15.1 Plt Count 242 D MPV 10.1 D Sodium 137 Potassium 3.9 Chloride 101 Carbon Dioxide 25 Anion Gap 11 BUN 35.4 H Creatinine 1.3 Est GFR (CKD-EPI)AfAm 46.47 Est GFR (CKD-EPI)NonAf 40.10 Random Glucose 151 H Calcium 9.0 Microbiology 11/27/18 08:00 Sputum - Expectorated Gram Stain - Final 11/27/18 08:00 Sputum - Expectorated Sputum Culture - Preliminary NORMAL RESPIRATORY CODY 11/25/18 14:12 Blood - Peripheral Venous Blood Culture - Preliminary NO GROWTH OBTAINED AFTER 48 HOURS, INCUBATION TO CONTINUE FOR 3 DAYS. 11/25/18 14:10 Blood - Peripheral Venous Blood Culture - Preliminary NO GROWTH OBTAINED AFTER 48 HOURS, INCUBATION TO CONTINUE FOR 3 DAYS. 11/26/18 12:00 Urine - Urine Clean Catch Urine Culture - Final NO GROWTH OBTAINED ASSESSMENT AND PLAN: 73 yof with PMhx of HFpEF, COPD, Afib(xarelto), HTN, HLD, hypothyroidism, chronic venous congestion of BLE, chronic recurrent UTIs admitted with dyspnea, fevers. -Acute hypoxic respiratory failure -Sepsis -Suspected aspiration PNA vs pneumonitis -Acute COPD exacerbation, likely from above -Suspected acute on chronic diastolic HF exacerbation -Afib with RVr, likely from above -HLD -HTN -Hypothyroidism -chronic venous congestion bilateral lower extremiteis -Chronic recurrent UTIs Plan: Markedly improved. Ambulating with no concerns. Oxygenating well on room patient reports being told to take aldactone MWF and lasix. But takes lasix 80 and aldactone about twice a month as it makes a urinate more. recommended to resume aldactone and continue lasix 20 mg daily for now with regular renal function/potassium level monitoring with PCP. PO Prednisone taper. Doxycycline for total [address] chest neg for infiltrate. blood cx neg so far. Urine studies neg. s/p amiodarone on admission. Metoprolol restarted this admission. Cardiology input noted, discussed with Dr. Burleson, metoprolol increased. Continue xarelto Continue levothyroxine. DVTPPX on xarelto Dispo no home oxygen needs noted. Also patient declines home PT as her daughter is a therapist. Dc home today with outpatient PCP/cardiology/pulmonary follow up. Dc plan and instructions discussed in detail with patient, she relayed understanding.
--- NOTE | 2018-11-28 13:18 | PN ---
Progress Note, Physician - Current Medication List Current Medications: Active Medications Acetaminophen (Tylenol -) 650 mg PO Q4H PRN PRN Reason: FEVER Last Admin: 11/26/18 15:31 Dose: 650 mg Albuterol Sulfate (Ventolin 0.083% Nebulizer Soln -) 1 amp NEB Q4H PRN PRN Reason: SHORT OF BREATH/WHEEZING Last Admin: 11/26/18 16:25 Dose: 1 amp Doxycycline Hyclate (Vibramycin -) 100 mg PO BID@1000,1800 [facility] Stop: 12/02/18 18:01 Last Admin: 11/28/18 10:57 Dose: 100 mg Levalbuterol HCl (Xopenex) 0.63 mg IH RTID [facility] Last Admin: 11/28/18 07:27 Dose: 0.63 mg Levothyroxine Sodium (Synthroid -) 125 mcg PO DAILY@0700 [facility] Last Admin: 11/28/18 06:43 Dose: 125 mcg Metoprolol Succinate (Toprol Xl -) 100 mg PO DAILY [facility] Last Admin: 11/28/18 10:57 Dose: 100 mg Metoprolol Tartrate (Lopressor Injection -) 5 mg IVPUSH Q4H PRN PRN Reason: HYPERTENSION Prednisone (Deltasone -) 60 mg PO DAILY [facility] Last Admin: 11/28/18 10:57 Dose: 60 mg Rivaroxaban (Xarelto) 20 mg PO DAILY@1800 [facility] Last Admin: 11/27/18 17:51 Dose: 20 mg - Objective Vital Signs: Vital Signs Temperature 98.0 F 11/28/18 10:00 Pulse Rate 83 11/28/18 10:00 Respiratory Rate 18 11/28/18 10:00 Blood Pressure 129/59 L 11/28/18 10:00 O2 Sat by Pulse Oximetry (%) 94 L 11/28/18 09:41 Labs: CBC, BMP 11/28/18 05:35 11/28/18 05:35 INR, PTT INR 1.38 (0.83-1.09) H 11/25/18 14:12
== END 2018-11-28 14:55 | disposition home or self-care (01) | DRG 871 ==
LOC: JER 13:10 → SUPCPDRO 13:10 → JERBED 15:42 → J4W 18:13
PROVIDERS: ADMIT Internal Medicine; ATTEND Hospitalist
DX: A41.9 Sepsis, unspecified organism (principal); J69.0 Pneumonitis due to inhalation of food and vomit; J96.01 Acute respiratory failure with hypoxia; I50.33 Acute on chronic diastolic (congestive) heart failure; J90 Pleural effusion, not elsewhere classified; J44.1 Chronic obstructive pulmonary disease with (acute) exacerbation; Z68.42 Body mass index [BMI] 45.0-49.9, adult; N39.0 Urinary tract infection, site not specified; I48.91 Unspecified atrial fibrillation; D64.9 Anemia, unspecified; I25.10 Atherosclerotic heart disease of native coronary artery without angina pectoris; E03.9 Hypothyroidism, unspecified; I73.9 Peripheral vascular disease, unspecified; D72.829 Elevated white blood cell count, unspecified; I11.0 Hypertensive heart disease with heart failure; E66.01 Morbid (severe) obesity due to excess calories; R00.0 Tachycardia, unspecified
CPT/HCPCS: 36415; 71045-TC-FY; 71250-TC; 80048; 80053; 81003; 82803; 83036; 83605; 83735; 83880; 84443; 84484; 85025; 85027; 85610; 85651; 85730; 86140; 87040; 87070; 87086; 87205; 93005; 93010; 93306-TC; 93308; 93970-TC; 94640; 94761; 97116-GP; 97161-GP; 99285-25; J0131

== ENCOUNTER 2018-12-21 11:17 | Inpatient (IN) | payer OTHER ==
[2018-12-21] MEDS ORDERED: VANCOMYCIN 1,000 MG in DEXTROSE 5%-WATER - 250 ML IVPB ONE (11:43)
[2018-12-21] MEDS ORDERED: ACETAMINOPHEN 1000 MG/100 ML VIAL (NON FORMULARY) IVPB ONE ×2 (11:50→12:44)
[2018-12-21] MEDS ORDERED: PIPERACILLIN/TAZOB 4.5 GM 4.5 GM in DEXTROSE 5%-WATER - 100 ML IVPB ONE (11:58)
[2018-12-21] MEDS ORDERED: ACETAMINOPHEN INJECTION 100 ML IVPB ONE (11:59)
--- NOTE | 2018-12-21 12:07 | PDOC ---
History of Present Illness - General Chief Complaint: Shortness of Breath Stated Complaint: SOB Time Seen by Provider: 12/21/18 11:32 - History of Present Illness Initial Comments: The pt is a 73F w/ a history of CHF, afib (xarelto), BLE chronic venous stasis wounds/swelling who presents for evaluation of several days of worsening shortness of breathing. The pt states that her shortness of breath has been gradually worsening. She endorses several days of fevers at home as well as worsening swelling of her LLE w/ increasing redness. She has tried taking Tylenol/Motrin with minimal relief. She also takes Lasix PRN for hypervolemia. Pt reports being intubated once before for CHF exacerbation. PCP: Dr. Guallpa 12/21/18 12:01 Past History - Past Medical History Allergies/Adverse Reactions: Allergies Allergy/AdvReac Type Severity Reaction Status Date / Time Penicillins Allergy Intermediate Swelling Verified 12/21/18 11:27 Home Medications: Ambulatory Orders Levothyroxine Sodium [Synthroid] 125 mcg PO DAILY 04/10/17 Rivaroxaban [Xarelto -] 20 mg PO HS 04/10/17 Albuterol Sulfate Inhaler - [Ventolin HFA Inhaler -] 1 - 2 inh PO Q6H PRN #1 inhaler 11/28/18 Doxycycline Hyclate 100 mg PO BID #7 tablet 11/28/18 Furosemide [Lasix] 20 mg PO DAILY #30 tablet 11/28/18 Metoprolol Succinate [Toprol XL -] 100 mg PO DAILY #30 tab.sr.24h 11/28/18 Prednisone See Taper PO DAILY #42 tablet 11/28/18 Spironolactone [Aldactone] 25 mg PO MOWEFR #20 tablet 11/28/18 Anemia: No Asthma: No Cancer: No Cardiac Disorders: Yes (afib, CHF) CVA: No COPD: No CHF: Yes Dementia: No Diabetes: No GI Disorders: No Disorders: No HTN: Yes Hypercholesterolemia: Yes Liver Disease: No Seizures: No Thyroid Disease: Yes (hypo) - Surgical History Abdominal Surgery: No Appendectomy: No Cardiac Surgery: Yes (Cardioversion x 2, Cardiac Cath x 1) Cholecystectomy: No Lung Surgery: No Neurologic Surgery: No Orthopedic Surgery: (rt rotator cuff repair) - Psycho Social/Smoking Cessation Hx Smoking History: Never smoked Have you smoked in the past 12 months: No If you are a former smoker, when did you quit?: 40 yrs ago Hx Alcohol Use: No Drug/Substance Use Hx: No Substance Use Type: None Hx Substance Use Treatment: No Review of Systems - Review of Systems Able to Perform ROS?: Yes Comments:: GENERAL/CONSTITUTIONAL: + fever or chills HEAD, EYES, EARS, NOSE AND THROAT: No change in vision. No change in hearing. No sore throat CARDIOVASCULAR: +SOB; denies chest pain RESPIRATORY: +cough GASTROINTESTINAL: No nausea, vomiting, diarrhea or constipation GENITOURINARY: No dysuria, frequency, or change in urination MUSCULOSKELETAL: No joint or muscle swelling or pain. No neck or back pain SKIN: +BLE redness/venous changes NEUROLOGIC: No headache, vertigo, loss of consciousness, or change in strength/ sensation ENDOCRINE: No increased thirst. No abnormal weight change HEMATOLOGIC/LYMPHATIC: No anemia, easy bleeding, or history of blood clots ALLERGIC/IMMUNOLOGIC: No hives or skin allergy 12/21/18 12:07 Is the patient limited Uzbek proficient: No *Physical Exam - Vital Signs Last Vital Signs Temp Pulse Resp BP Pulse Ox 98.4 F 163 H 20 108/64 84 L 12/21/18 11:21 12/21/18 11:21 12/21/18 11:21 12/21/18 11:21 12/21/18 11:21 - Physical Exam Comments: GENERAL: Awake, alert, and oriented to person/place/time HEAD: No signs of trauma, normocephalic, atraumatic EYES: PERRLA, EOMI, sclera anicteric, conjunctiva clear ENT: Hearing grossly normal, nares patent, oropharynx clear without exudates. Moist mucosa LUNGS: Moderate distress, diffusely diminished breath sounds b/l w/ mild crackles HEART: Tachycardic rate w/ irregularly irregular rhythm, normal S1 and S2, no murmurs appreciated, peripheral pulses normal and equal bilaterally ABDOMEN: Soft, protuberant, nontender, normoactive bowel sounds. No guarding, no rebound EXTREMITIES: Moves all extremities independently, edema in all extremities, LLE > RLE edema NEUROLOGICAL: Cranial nerves II through XII grossly intact. Normal speech, no focal sensorimotor deficits SKIN: BLE venous stasis changes to proximal 1/3 lindsay; L>R lower extremity erythema and warmth; 10/20/19 12:09 ED Treatment Course - LABORATORY CBC & Chemistry Diagram: 12/21/18 12:00 12/21/18 12:00 - RADIOLOGY Radiograph Interpretation: Single view AP portable chest Sepsis Comparison 11/26/[address] scan 11/25/2018 which showed cardiomegaly and no evidence of pericardial or pleural effusion. Mild prominence of the central hilar vessels. No definite congestive change or edema. No definite consolidative changes identified. Impression: Cardiomegaly similar to prior imaging, no definite acute changes in the lungs observed. 12/21/18 12:17 Medical Decision Making - Medical Decision Making The pt is a 73F w/ a history of CHF, afib (xarelto), BLE chronic venous stasis wounds/swelling who presents for evaluation of several days of worsening shortness of breathing likely 2/2 CHF exacerbation and sepsis, consider PE/PNA ED Course Sepsis labs sent ECG CXR BiPAP Vanc/Zosyn ECG w/ a-fib; HR 160; QTc 394; no axis deviation; TWI noted in I, aVL, V1 likely rate related changes 12/21/18 12:[address] Escoto, agree w/ Vanc/Zosyn 12/21/18 12:17 Leukocytosis to 12.3 No anemia Lytes unremarkable Lactate 2.8 Trop I neg BNP 2260 LFTs unremarkable IV lasix given Plan for admission for cellulitis/sepsis w/ CHF exacerbation 12/21/18 15:59 Discharge - Discharge Information Problems reviewed: Yes Clinical Impression/Diagnosis: Cellulitis Qualifiers: Site of cellulitis: extremity Site of cellulitis of extremity: lower extremity Laterality: left Qualified Code(s): L03.116 - Cellulitis of left lower limb Afib Qualifiers: Atrial fibrillation type: other persistent Qualified Code(s): I48.19 - Other persistent atrial fibrillation CHF exacerbation Qualifiers: Heart failure type: diastolic Qualified Code(s): I50.33 - Acute on chronic diastolic (congestive) heart failure Condition: Fair - Admission Yes - Follow up/Referral - Patient Discharge Instructions - Post Discharge Activity
[2018-12-21 12:11] LABS: VENOUS PC02 44.5 mmHg (38-52); VENOUS PH 7.41 (7.31-7.41); VENOUS PO2 49.6 mmHg (28-48)
[2018-12-21 12:22] LABS: BASO % 0.5 % (0-2.0); HEMATOCRIT 38.7 % (32.4-45.2); HEMOGLOBIN 12.4 GM/dL (10.7-15.3); LYMPH % 5.4 % (8-40); MCH 30.1 pg (25.7-33.7); MEAN CELL VOLUME 94.1 fl (80-96); MONO % 4.4 % (3.8-10.2); NEUT % 89.7 % (42.8-82.8); PLATELET COUNT 173 K/MM3 (134-434); RBC 4.12 M/mm3 (3.60-5.2); WHITE BLOOD COUNT 12.3 K/mm3 (4.0-10.0)
[2018-12-21 12:34] LABS: INR 1.34 (0.83-1.09); PROTHROMBIN TIME (PATIENT) 15.9 SEC (9.7-13.0)
[2018-12-21 12:39] LABS: ALBUMIN 3.3 g/dl (3.4-5.0); BILIRUBIN,TOTAL 1.2 mg/dL (0.2-1); BLOOD UREA NITROGEN 13.6 mg/dL (7-18); CALCIUM 8.7 mg/dL (8.5-10.1); CREATININE 1.3 mg/dL (0.55-1.3); POTASSIUM 3.8 mmol/L (3.5-5.1); TOT PROT 7.6 g/dl (6.4-8.2)
[2018-12-21 12:41] LABS: ARTERIAL BLD GAS O2 SATURATION 98.5 % (95-98); ARTERIAL BLOOD GAS BASE EXCESS 3.2 meq/l (-2-2); ARTERIAL BLOOD GAS PCO2 36.3 mmHg (35-45); ARTERIAL BLOOD GAS PO2 111 mmHg (80-100); ARTERIAL BLOOD GAS pH 7.47 (7.35-7.45)
[2018-12-21] MEDS ORDERED: VANCOMYCIN 1 GRAM (PRE-DOCKED) 1,000 MG/250 ML BAG IVPB ONE (12:41)
[2018-12-21 12:42] LABS: ALLENS TEST POSITIVE
[2018-12-21] MEDS ORDERED: FUROSEMIDE 40 MG/4 ML INJECTABLE VIAL IVPUSH ONE (12:43)
[2018-12-21] MEDS ORDERED: FUROSEMIDE 40 MG/4 ML INJECTABLE VIAL ONE (13:03)
--- NOTE | 2018-12-21 13:17 | PDOC ---
Documentation entered by Anupam Yousif SCRIBE, acting as scribe for Autumn Padilla MD. Autumn Padilla MD: This documentation has been prepared by the Benja yang Daniel, SCRIBE, under my direction and personally reviewed by me in its entirety. I confirm that the documentation accurately reflects all work, treatment, procedures, and medical decision making performed by me. Attending Attestation - Resident Resident Name: Heri Terrell - ED Attending Attestation I have performed the following: I have examined & evaluated the patient, The case was reviewed & discussed with the resident, I agree w/resident's findings & plan, Exceptions are as noted - HPI HPI: 12/21/18 12:05 The patient is a 73 year old female with a past medical history of CHF, anemia, afib (s/p 2 ablations, on xarelto), hypothyroidism, PVD, chronic venous stasis, chronic lower extremity wounds, and CAD here today for evaluation of shortness of breath. The patient states that she has had a gradual onset of shortness of breath for the past few days. Patients daughter reports that the patient has had tremors, 101.3 fever this morning, and left leg swelling, redness, and weeping from her wounds. Daughter also notes a recent diagnosis of bronchitis. Patient denies chest pain. Denies nausea, vomiting, abdominal pain. Denies dizziness, headache, focal weakness/numbness. Allergies: penicillins - Physicial Exam PE: 12/21/18 12:05 GENERAL: Lethargic, but arousable, knows name, date, and location. In mild resp distress EYES: Sclera anicteric, conjunctiva clear ENT: Oropharynx clear without exudates. Moist mucosa NECK: Normal ROM, supple, no lymphadenopathy, JVD, or masses LUNGS: Diminished BS b/l, but no wheezes, and no crackles HEART: Irregularly irregular, rate 160s, normal S1 and S2, no murmurs, rubs or gallops ABDOMEN: Soft, nontender, normoactive bowel sounds. No guarding, no rebound. No masses. MIdline scar noted inferior to umbulicus EXTREMITIES: L>R pitting edema to thighs. +venous stasis skin changes b/l with weeping, erythema, and callor from entire L calf BACK: No midline spinal tenderness in cervical/thoracic/lumbar region. Rectal temp 103.9 NEUROLOGICAL: + Rigors, normal speech, cranial nerves intact, equal strength and sensation b/l SKIN: As noted above - Medical Decision Making 12/21/18 13:11 73-year-old female with multiple medical problems including CHF, A. fib on Xarelto presents to the emergency department with fever to 103.9, shortness of breath, and increasing edema to the left lower extremity with weeping, warmth, and pain. Sepsis protocol was initiated. Patient was placed on BiPAP for positive pressure support. Source most likely her left lower extremity cellulitis. We will also obtain a ultrasound to rule out DVT, although unlikely as patient is on Xarelto. Patient has been empirically covered with Vanco/Zosyn. Reports allergy to penicillins but daughter, who is medically well versed, states patient has received Zosyn multiple times in the past with no reaction. COnfirmed on EMR review. Chest x-ray with cardiomegaly and some congestive changes with cephalization. Blood pressure increased to 170 systolic. Patient given home dose of Lasix 20mg IV for presumed fluid overload. Anticipate admission to telemetry versus ICU. 12/21/18 14:00 Patient feeling a lot better on BiPAP. Work-up remarkable for lactate of 2.8. Patient appears fluid overloaded on evaluation, thus will hold off on IV fluids at this time. Case has been discussed with Dr. Mon by Dr. Terrell, patient accepted for admission. Case discussed in detail with admitting physician including history, physical exam and ancillary studies. Admitting physician has assumed care for the patient, will follow all pending diagnostics and will complete the evaluation and treatment. Heart Score/ECG Review #1 12/21/18 13:10 Twelve-lead EKG was performed and reviewed by me. Atrial fibrillation with rapid ventricular response. Rate 160. Normal axis.
[2018-12-21 13:23] LABS: EPI CELLS 10.5 /HPF (0-5/HPF); HYALINE CASTS 4 /lpf (0-8); URINE APPEARANCE CLEAR; URINE BACTERIA 298.5 /hpf (NEGATIVE); URINE BILIRUBIN NEGATIVE (NEGATIVE); URINE COLOR YELLOW; URINE GLUCOSE (UA) NEGATIVE (NEGATIVE); URINE KETONE NEGATIVE (NEGATIVE); URINE LEUK ESTERASE NEGATIVE (NEGATIVE); URINE NITRITE NEGATIVE (NEGATIVE); URINE PROTEIN 3+ (NEGATIVE); URINE RBC 1 /hpf (0-4); URINE WBC 0 /hpf (0-5)
[2018-12-21] MEDS ORDERED: PIPERACILLIN/TAZOB 4.5 GM 4.5 GM/100 ML BAG IVPB ONE (14:14)
--- NOTE | 2018-12-21 14:56 | CON.CARD ---
Consult Consult Specialty:: Cardiology for Dr. Burleson Referred by:: Hospitalist Medicine Reason for Consultation:: Rapid afib - History of Present Illness Chief Complaint: Dyspnea History of Present Illness: 73 yr old woman with PMH of diastolic CHF, anemia, Afib (s/p 2 ablations, currently on xarelto), hypothyroid, PVD and CAD, chronic venous stasis, chronic lower extremity wounds who presents to the ER with SOB, subjective fevers, worsening left leg swelling, redness, and weeping from her wounds. She denies chest pain, palpitations, near or true syncope, orthopnea, PND. - History Source History Provided By: Patient Limitations to Obtaining History: No Limitations - Past Medical History Cardio/Vascular: Yes: AFIB, CHF, HTN Psych: Yes: Other Endocrine: Yes: Hypothyroidism - Alcohol/Substance Use Hx Alcohol Use: No - Smoking History Smoking history: Never smoked Have you smoked in the past 12 months: No If you are a former smoker, when did you quit?: 40 yrs ago Home Medications - Allergies Allergies/Adverse Reactions: Allergies Allergy/AdvReac Type Severity Reaction Status Date / Time Penicillins Allergy Intermediate Swelling Verified 12/21/18 11:27 - Home Medications Home Medications: Ambulatory Orders Levothyroxine Sodium [Synthroid] 125 mcg PO DAILY 04/10/17 Rivaroxaban [Xarelto -] 20 mg PO HS 04/10/17 Albuterol Sulfate Inhaler - [Ventolin HFA Inhaler -] 1 - 2 inh PO Q6H PRN #1 inhaler 11/28/18 Doxycycline Hyclate 100 mg PO BID #7 tablet 11/28/18 Furosemide [Lasix] 20 mg PO DAILY #30 tablet 11/28/18 Metoprolol Succinate [Toprol XL -] 100 mg PO DAILY #30 tab.sr.24h 11/28/18 Prednisone See Taper PO DAILY #42 tablet 11/28/18 Spironolactone [Aldactone] 25 mg PO MOWEFR #20 tablet 11/28/18 Review of Systems - Review of Systems Cardiovascular: reports: Edema, Shortness of Breath Respiratory: reports: SOB Integumentary: reports: Blister, Erythema, Wound Vital Signs: Vital Signs Temperature 98.3 F 12/21/18 14:10 Pulse Rate 146 H 12/21/18 14:10 Respiratory Rate 26 H 12/21/18 14:10 Blood Pressure 134/86 12/21/18 14:10 O2 Sat by Pulse Oximetry (%) 100 12/21/18 14:10 Constitutional: Yes: No Distress, Calm Neck: Yes: Supple Respiratory: Yes: Regular, Diminished, SOB Gastrointestinal: Yes: Normal Bowel Sounds, Soft, Abdomen, Obese Cardiovascular: Yes: Pulse Irregular JVD: No Carotid Bruit: No Heart Sounds: Yes: S1, S2 Edema: Yes Edema: LLE: 3+, RLE: 3+ Integumentary: Yes: Erythema, Venous Stasis Changes - Other Data Labs, Other Data: CBC, BMP 12/21/18 12:00 12/21/18 12:00 INR, PTT INR 1.34 (0.83-1.09) H 12/21/18 12:00 Troponin, BNP 12/21/18 12/21/18 12:00 12:00 Troponin I 0.03 B-Natriuretic Peptide 2260.0 H Troponin, BNP 12/21/18 12/21/18 12:00 12:00 Troponin I 0.03 B-Natriuretic Peptide 2260.0 H Ejection Fraction %: LVEF > or = 40 % Imaging - Results Chest X-ray: Report Reviewed (NAD) Cat Scan: Report Reviewed (11/25/[address]: Possible mild congestion, bibasilar ATX L>R) Problem List - Problems (1) Afib Code(s): I48.91 - UNSPECIFIED ATRIAL FIBRILLATION Qualifiers: Atrial fibrillation type: other persistent Qualified Code(s): I48.19 - Other persistent atrial fibrillation (2) CHF exacerbation Code(s): I50.9 - HEART FAILURE, UNSPECIFIED Qualifiers: Heart failure type: diastolic Qualified Code(s): I50.33 - Acute on chronic diastolic (congestive) heart failure (3) Cellulitis Code(s): L03.90 - CELLULITIS, UNSPECIFIED Qualifiers: Site of cellulitis: extremity Site of cellulitis of extremity: lower extremity Laterality: left Qualified Code(s): L03.116 - Cellulitis of left lower limb (4) HTN (hypertension) Code(s): I10 - ESSENTIAL (PRIMARY) HYPERTENSION Qualifiers: Hypertension type: essential hypertension Qualified Code(s): I10 - Essential (primary) hypertension (5) Hypothyroid Code(s): E03.9 - HYPOTHYROIDISM, UNSPECIFIED Qualifiers: Hypothyroidism type: unspecified Qualified Code(s): E03.9 - Hypothyroidism , unspecified (6) Sepsis Code(s): A41.9 - SEPSIS, UNSPECIFIED ORGANISM Qualifiers: Sepsis type: sepsis due to unspecified organism Sepsis acute organ dysfunction status: without acute organ dysfunction Qualified Code(s): A41.9 - Sepsis, unspecified organism (7) Swelling of lower leg Code(s): M79.89 - OTHER SPECIFIED SOFT TISSUE DISORDERS Assessment/Plan 11/26/2018 Echo: Normal LV size and fxn, mild-mod MR, tr-mild TR - Problems (1) Sepsis Assessment/Plan: On IV antibiotics; f/u C&S, ID evaluation Antipyretics as needed (avoid NSAIDS). Code(s): A41.9 - SEPSIS, UNSPECIFIED ORGANISM Qualifiers: Sepsis type: sepsis due to unspecified organism Sepsis acute organ dysfunction status: without acute organ dysfunction Qualified Code(s): A41.9 - Sepsis, unspecified organism (2) Afib Assessment/Plan: EKG: rapid AF @ 160 Pt says amiodarone dose was lowered over several weeks from 200 mg to 50 mg daily, then stopped completely in 05/2018.Stress MIBI done 2018 reportedly showed no ischemia. She was continued on metoprolol. Plan: continue long-acting metoprolol XL 100 qd with IV Cardizem as needed for rate-control Continue Xarelto 20 qhs for anticoagulation. ECHO: normal LVEF; mild borderline LAE; mild-moderate MR; trace to mild TR. Code(s): I48.91 - UNSPECIFIED ATRIAL FIBRILLATION (3) Cellulitis Assessment/Plan: 11/27/2018 LE doppler negative for DVT bilaterally, abx per ID, compression therapy once cellulitis improved Code(s): L03.90 - CELLULITIS, UNSPECIFIED Qualifiers: Site of cellulitis: extremity Site of cellulitis of extremity: lower extremity Laterality: left Qualified Code(s): L03.116 - Cellulitis of left lower limb (4) HTN (hypertension) Assessment/Plan: IV furosemide and aldactone for CHF with monitor diuretic response, renal fxn and electrolytes Stopped amlodipine.; increased dose of metoprolol (and changed to long-acting) for CHF and HR. Code(s): I10 - ESSENTIAL (PRIMARY) HYPERTENSION (5) Hypothyroid Assessment/Plan: TSH 1.16; on Synthroid. Code(s): E03.9 - HYPOTHYROIDISM, UNSPECIFIED
[2018-12-21] MEDS ORDERED: dilTIAZem HCL 50 MG/10 ML - 10 ML VIAL IVPUSH PRN (14:58)
--- NOTE | 2018-12-21 15:24 | HP ---
CHIEF COMPLAINT: SOB + Fever PCP: HISTORY OF PRESENT ILLNESS: 73 y/o F with PMHx of HFpEF (Echo 11/20), CAD (Cath 2 years ago, No Stents), AFib (on Xarelto), Anemia, who recently discharged from [facility] in November 2018 ( treated for AFib with RVR) presents with SOB. HPI was provided by Daughter Brianna. Brianna says that the patient has been wheezing since her last discharge that would come and go. She went to bed yesterday in her usual state of health; Upon waking, patient complained of chills and fatigue to Brianna. Patient then began to ambulate, and entered respiratory distress after about 25 ft requiring her to stop and sit. This is the first time the family noticed such difficulty with work of breathing; while sitting, Brianna noticed that her mothers legs looked erythematous. Upon further examination, she felt the left leg was more erytheamtous than the right, tender to palpation and warm. At this point, she measured a temp to be 101.3 prompting her to bring her mother to [facility]. Family endorses that patient is noncompliant with her ERNESTO stockings and does not routinely wrap her legs. Denies any associated chest pain, Nausea, vomiting, diarrhea, constipation. No associated trauma, falls, recent medication changes, sick contacts. ER course was notable for: (1) ID (Dr. Escoto) Consulted (2) Helenao, Donna, Ofirmev, Lasix 20mg (3) BiPap Recent Travel: Denies PAST MEDICAL HISTORY: As above PAST SURGICAL HISTORY: Rotator cuff, Hysterectomy, Bladder ablation, Cardioversion x2 Social History: Smoking: Former, quit 40 years ago, total 20 year smoking hx Alcohol: Denies Drugs: Denies Residence: with daughter Allergies Penicillins Allergy (Intermediate, Verified 12/21/18 11:27) Swelling HOME MEDICATIONS: Home Medications Medication Instructions Recorded Levothyroxine Sodium [Synthroid] 125 mcg PO DAILY 04/10/17 Rivaroxaban [Xarelto -] 20 mg PO HS 04/10/17 Albuterol Sulfate Inhaler - 1 - 2 inh PO Q6H PRN #1 inhaler 11/28/18 [Ventolin HFA Inhaler -] Doxycycline Hyclate 100 mg PO BID #7 tablet 11/28/18 Furosemide [Lasix] 20 mg PO DAILY #30 tablet 11/28/18 Metoprolol Succinate [Toprol XL -] 100 mg PO DAILY #30 tab.sr.24h 11/28/18 Prednisone See Taper PO DAILY #42 tablet 11/28/18 Spironolactone [Aldactone] 25 mg PO MOWEFR #20 tablet 11/28/18 REVIEW OF SYSTEMS As per HPI PHYSICAL EXAMINATION Vital Signs Temp 98.3 F 12/21/18 14:10 Pulse 146 H 12/21/18 14:10 Resp 26 H 12/21/18 14:10 BP 134/86 12/21/18 14:10 Pulse Ox 100 12/21/18 14:10 Intake & Output 12/20/18 12/21/18 12/21/18 23:59 11:59 23:59 Weight 120.202 kg Other: Height 1.57 m Body Mass Index (BMI) 48.4 GENERAL: A&Ox3, Mild distress HEAD: NCAT EYES: PERRL, EOMI EARS, NOSE, THROAT: Moist mucous membranes. NECK: Supple LUNGS: Diminished breath sounds at the bases, wheezes most predominant in the upper lobes HEART: Tachycardic, normal S1 and S2 without murmur ABDOMEN: Obese, Soft, nontender, not distended, + bowel sounds, no guarding, no rebound EXTREMITIES: B/L Chronic venous stasis changes, Tree bark like thickening over the anterior lindsay. LLE erythematous, warm and tender to palpation. B/L 2+ LE Edema NEUROLOGICAL: Cranial nerves II-XII intact. Normal speech. SKIN: Warm, dry Laboratory Last Values WBC 12.3 K/mm3 (4.0-10.0) H 12/21/18 12:00 RBC 4.12 M/mm3 (3.60-5.2) 12/21/18 12:00 Hgb 12.4 GM/dL (10.7-15.3) 12/21/18 12:00 Hct 38.7 % (32.4-45.2) 12/21/18 12:00 MCV 94.1 fl (80-96) 12/21/18 12:00 MCH 30.1 pg (25.7-33.7) 12/21/18 12:00 MCHC 32.0 g/dl (32.0-36.0) 12/21/18 12:00 RDW 18.0 % (11.6-15.6) H 12/21/18 12:00 Plt Count 173 K/MM3 (134-434) D 12/21/18 12:00 MPV 10.0 fl (7.5-11.1) 12/21/18 12:00 Absolute Neuts (auto) 11.0 K/mm3 (1.5-8.0) H 12/21/18 12:00 Neutrophils % 89.7 % (42.8-82.8) H 12/21/18 12:00 Lymphocytes % 5.4 % (8-40) L 12/21/18 12:00 Monocytes % 4.4 % (3.8-10.2) D 12/21/18 12:00 Eosinophils % 0.0 % (0-4.5) 12/21/18 12:00 Basophils % 0.5 % (0-2.0) D 12/21/18 12:00 Nucleated RBC % 0 % (0-0) 12/21/18 12:00 PT with INR 15.90 SEC (9.7-13.0) H 12/21/18 12:00 INR 1.34 (0.83-1.09) H 12/21/18 12:00 PTT (Actin FS) 34.4 SECONDS (25.2-36.5) 12/21/18 12:00 Anticoagulation Therapy No Result Required. 12/21/18 12:27 Puncture Site Right radial 12/21/18 12:27 ABG pH 7.47 (7.35-7.45) H 12/21/18 12:27 ABG pCO2 at Pt Temp 36.3 mmHg (35-45) 12/21/18 12:27 ABG pO2 at Pt Temp 111 mmHg (80-100) H 12/21/18 12:27 ABG HCO3 26.3 mmol/L (22-27) 12/21/18 12:27 ABG O2 Sat (Measured) 98.5 % (95-98) H 12/21/18 12:27 ABG O2 Content 18.3 % vol 12/21/18 12:27 ABG Base Excess 3.2 meq/l (-2-2) H 12/21/18 12:27 Iam Test Positive 12/21/18 12:27 VBG pH 7.41 (7.31-7.41) 12/21/18 12:00 POC VBG pCO2 44.5 mmHg (38-52) 12/21/18 12:00 POC VBG pO2 49.6 mmHg (28-48) H 12/21/18 12:00 VBG HCO3 27.4 mmol/L (23-29) 12/21/18 12:00 VBG O2 Sat (Breana) 83.2 % (70-80) H 12/21/18 12:00 VBG Base Excess 2.8 meq/l (-2-2) H 12/21/18 12:00 Carboxyhemoglobin 2.0 % (0-2) 12/21/18 12:27 Methemoglobin < 1.0 % (0-2) 12/21/18 12:27 O2 Delivery Device Bipap 12/21/18 12:27 Oxygen Flow Rate 30 12/21/18 12:27 Vent Mode No Result Required. 12/21/18 12:27 Vent Rate 12 12/21/18 12:27 Mechanical Rate No Result Required. 12/21/18 12:27 Pressure Support Vent 12/0612/21/18 12:27 Sodium 139 mmol/L (136-145) 12/21/18 12:00 Potassium 3.8 mmol/L (3.5-5.1) 12/21/18 12:00 Chloride 101 mmol/L (98-107) 12/21/18 12:00 Carbon Dioxide 31 mmol/L (21-32) 12/21/18 12:00 Anion Gap 7 MMOL/L (8-16) L 12/21/18 12:00 BUN 13.6 mg/dL (7-18) 12/21/18 12:00 Creatinine 1.3 mg/dL (0.55-1.3) 12/21/18 12:00 Est GFR (CKD-EPI)AfAm 46.47 12/21/18 12:00 Est GFR (CKD-EPI)NonAf 40.10 12/21/18 12:00 Random Glucose 134 mg/dL (74-106) H 12/21/18 12:00 Lactic Acid 2.8 mmol/L (0.4-2.0) H* 12/21/18 12:00 Calcium 8.7 mg/dL (8.5-10.1) 12/21/18 12:00 Total Bilirubin 1.2 mg/dL (0.2-1) H 12/21/18 12:00 AST 23 U/L (15-37) 12/21/18 12:00 ALT 79 U/L (13-61) H 12/21/18 12:00 Alkaline Phosphatase 109 U/L (45-117) 12/21/18 12:00 Troponin I 0.03 ng/ml (0.00-0.05) 12/21/18 12:00 B-Natriuretic Peptide 2260.0 pg/ml (5-450) H 12/21/18 12:00 Total Protein 7.6 g/dl (6.4-8.2) 12/21/18 12:00 Albumin 3.3 g/dl (3.4-5.0) L 12/21/18 12:00 Urine Color Yellow 12/21/18 12:25 Urine Appearance Clear 12/21/18 12:25 Urine pH 7.0 (5.0-8.0) D 12/21/18 12:25 Ur Specific [place] 1.021 (1.010-1.035) 12/21/18 12:25 Urine Protein 3+ (NEGATIVE) H 12/21/18 12:25 Urine Glucose (UA) Negative (NEGATIVE) 12/21/18 12:25 Urine Ketones Negative (NEGATIVE) 12/21/18 12:25 Urine Blood Negative (NEGATIVE) 12/21/18 12:25 Urine Nitrite Negative (NEGATIVE) 12/21/18 12:25 Urine Bilirubin Negative (NEGATIVE) 12/21/18 12:25 Urine Urobilinogen 1.0 mg/dL (0.2-1.0) 12/21/18 12:25 Ur Leukocyte Esterase Negative (NEGATIVE) 12/21/18 12:25 Urine WBC (Auto) 0 /hpf (0-5) 12/21/18 12:25 Urine RBC (Auto) 1 /hpf (0-4) 12/21/18 12:25 Urine Casts (Auto) 4 /lpf (0-8) 12/21/18 12:25 U Epithel Cells (Auto) 10.5 /HPF (0-5/HPF) 12/21/18 12:25 Urine Bacteria (Auto) 298.5 /hpf (NEGATIVE) 12/21/18 12:25 Active Medications Diltiazem HCl (Cardizem Injection -) 10 mg IVPUSH Q4H PRN PRN Reason: TACHYCARDIA Furosemide (Lasix Injection -) 40 mg IVPUSH BIDLASIX ALYSSA Levothyroxine Sodium (Synthroid -) 125 mcg PO DAILY@0700 [facility] Metoprolol Succinate (Toprol Xl -) 100 mg PO DAILY ALYSSA Rivaroxaban (Xarelto) 20 mg PO DAILY@1730 ALYSSA Spironolactone (Aldactone -) 25 mg PO MOWEFR ALYSSA Vancomycin HCl (Vancomycin (Pre-Docked)) 1,000 mg IVPB DAILY [facility]; Protocol ASSESSMENT/PLAN: 73 y/o F with PMHx of HFpEF (Echo 11/20), CAD (Cath 2 years ago, No Stents), AFib (on Xarelto), Anemia, who recently discharged from [facility] in November 2018 ( treated for AFib with RVR) presents with SOB. #Sepsis -Febrile, Leukocytosis in the setting of LLE Cellulitis -Gallo Cefepime (ABx course Started on 12/21) -ID Consulted -Compression therapy via Jeferson bandage wraps, Compression stockings -Trend Lactic acid #Acute CHF exacerbation -Likely due to AFib with RVR -Congestive changes on CXR, BNP >2200, Swelling of b/l LE -Given IV Furosemide 20mg x1 in ED; Continue with 40mg IV BID -Continue Spironolactone -Monitor Daily weights, I&Os, Cr -Check TSH #AFIb with RVR -EKG reveals rate 160s -Rate control via home dose Metoprolol Succinate 100mg daily, IV Diltiazem 10Q4 PRN -AC via Rivaroxaban -Recent Echo (11/20) reveals Preserved EF -Cardio consulted #HTN -Continue Furosemide, Metoprolol Succinate, Spironolactone #FEN -No standing fluids -Replete lytes PRN -Cholesterol/Fat controlled diet #PPx -DVT: DOAC Dispo: Admit to Tele Visit type - Emergency Visit Emergency Visit: Yes ED Registration Date: 12/21/18 Care time: The patient presented to the Emergency Department on the above date and was hospitalized for further evaluation of their emergent condition. - New Patient This patient is new to me today: Yes Date on this admission: 12/22/18 - Critical Care Critical Care patient: No ATTENDING PHYSICIAN STATEMENT I saw and evaluated the patient. I reviewed the resident's note and discussed the case with the resident. I agree with the resident's findings and plan as documented. SUBJECTIVE: OBJECTIVE: ASSESSMENT AND PLAN:
[2018-12-21] MEDS ORDERED: VANCOMYCIN 1 GM in D5W (PRE-DOCKED) 1,000 MG/250 ML IVPB SCH (15:45)
[2018-12-21] MEDS: FUROSEMIDE 40 MG/4 ML INJECTABLE VIAL IVPUSH SCH (15:55)
[2018-12-21] MEDS: ACETAMINOPHEN 325 MG TABLET (FP) PO PRN ×2 (16:37→21:39)
[2018-12-21] MEDS ORDERED: CEFEPIME HCL 1 GM VIAL (RESTRICTED TO ID) ONE (17:17)
[2018-12-21] MEDS ORDERED: DEXTROSE 5%-WATER 100 ML IVPB ONE (17:17)
[2018-12-21] MEDS: CEFEPIME 1 GM in DEXTROSE 5%-WATER 100 ML IVPB SCH (17:37)
[2018-12-21] MEDS: RIVAROXABAN 20 MG TABLET PO SCH (17:37)
--- NOTE | 2018-12-21 17:44 | PN ---
Teaching Attending Note Name of Resident: Jaymie Ledbetter ATTENDING PHYSICIAN STATEMENT I saw and evaluated the patient. I reviewed the resident's note and discussed the case with the resident. I agree with the resident's findings and plan as documented. SUBJECTIVE: 73F with multiple medical problems who presents to the ER with fever chills and shortness of breath. Per patient's grand daughter, who helped give the history over the phone as the patient was altered, the patient was fine yesterday and then all of a sudden this AM she became short of breath when walking which was worse than usual for her. Per granddaughter the patient was supposed to go to rehab after last admission but refused and her exercise tolerance has been deteriorating. Patient is denying all symptoms and says no to everything even sympotms such as fever chills and SOB that got her to the hospital. Per family she has been altered and not at her baseline. Patient has a history of stasis dermatitis and lower extremity cellulitis which has been improving after last admission but now patient In ER patient noted to being septic as she was febrile to 103.9 with leukocytosis and tachycardia. Her lactic acid was 2.8. cultures sent. Dr. Escoto consulted in the ER and started patient on vanco and zosyn but patient states she gets hives to N so called Dr. Escoto who recommended cefepime. Patient was noted to being febrile in ER and tachycardic. Family unsure how compliant she is with medications. Patient states she is. Patient required short course of bipap in ER. OBJECTIVE: Alert and awake Irregular No JVD Dry mucous membranes bilateral crackles bilateral lower extremity edema consistent with stasis dermatitis. angry looking RLE cellulitis which is warm edematous and blistering. LLE with 2+ pitting edema soft non tender non distended CXR: consistent with vascular congestion BNP elevated WBC elevated ASSESSMENT AND PLAN: 73F with multiple medical problems inclusing a history of HFpEF (Echo 11/20), CAD (Cath 2 years ago, No Stents), AFib (on Xarelto), Anemia, who recently discharged from [facility] in November 2018 (treated for AFib with RVR) presents with SOB and sepsis secondary to cellulitis. Problem List: Atrial fibrillation-uncontrolled at this time hypothyroidism severe sepsis lactic acidosis CAD Heart failure acute hypoxic respiratory failure requiring short course of bipap in the ER. Plan: I believe the rapid ventricular response is secondary to tachycardia which is leading to heart failure ID consult Vanco and cefepime due to PCN allergy Cardiology consult lasix diuresis repeat lactic acid after diuresis to determine whether or not it worsens or improves. If worsens patient may need fluids if imporves will continue diuresis continue xarelto continue aldactone metoprolol cardizem IV PRN check TSH continue synthroid See admitting H&P for further information
[2018-12-21] MEDS ORDERED: CEFEPIME HCL/D5W 1 GM/50 ML BAG IVPB SCH (18:00)
[2018-12-22] MEDS ORDERED: CEFEPIME HCL 1 GM VIAL (RESTRICTED TO ID) ONE ×3 (01:16→21:20)
[2018-12-22] MEDS ORDERED: DEXTROSE 5%-WATER 100 ML IVPB ONE ×2 (01:17→09:07)
[2018-12-22] MEDS: CEFEPIME 1 GM in DEXTROSE 5%-WATER 100 ML IVPB SCH ×2 (01:19→09:23)
[2018-12-22] MEDS: FUROSEMIDE 40 MG/4 ML INJECTABLE VIAL IVPUSH SCH (06:14)
[2018-12-22] MEDS: LEVOTHYROXINE NA 125 MCG TABLET (FP) PO SCH (06:14)
[2018-12-22 06:39] LABS: BASO % 0.4 % (0-2.0); EOS % 0.1 % (0-4.5); HEMATOCRIT 31.4 % (32.4-45.2); HEMOGLOBIN 10.3 GM/dL (10.7-15.3); LYMPH % 11.9 % (8-40); MCH 30.5 pg (25.7-33.7); MCHC 32.8 g/dl (32.0-36.0); MEAN CELL VOLUME 93.2 fl (80-96); MEAN PLT VOLUME 9.9 fl (7.5-11.1); MONO % 6.7 % (3.8-10.2); NEUT % 80.9 % (42.8-82.8); PLATELET COUNT 127 K/MM3 (134-434); RBC 3.37 M/mm3 (3.60-5.2); RDW 17.4 % (11.6-15.6); WHITE BLOOD COUNT 11.4 K/mm3 (4.0-10.0)
[2018-12-22 07:15] LABS: ALBUMIN 2.7 g/dl (3.4-5.0); BILIRUBIN,TOTAL 1.1 mg/dL (0.2-1); CALCIUM 7.9 mg/dL (8.5-10.1); CREATININE 1.4 mg/dL (0.55-1.3); POTASSIUM 3.7 mmol/L (3.5-5.1); TOT PROT 6.3 g/dl (6.4-8.2)
[2018-12-22] MEDS ORDERED: LEVOTHYROXINE NA 200 MCG TABLET PO SCH (10:00)
[2018-12-22] MEDS ORDERED: VANCOMYCIN 1 GM in D5W (PRE-DOCKED) 1,000 MG/250 ML IVPB SCH (10:00)
[2018-12-22] MEDS ORDERED: VANCOMYCIN 1 GRAM (PRE-DOCKED) 1,000 MG/250 ML BAG IVPB ONE (11:00)
[2018-12-22] MEDS ORDERED: FUROSEMIDE 40 MG/4 ML INJECTABLE VIAL IVPUSH SCH (11:15)
--- NOTE | 2018-12-22 11:44 | CON.ID ---
Consult Consult Specialty:: infectious diseases Referred by:: hospitalist Reason for Consultation:: resp failure,cellulitis of the rt leg - History of Present Illness Chief Complaint: weakness,redness and swelling of the leg History of Present Illness: 73 y/o F with PMHx of HFpEF AFib (on Xarelto), Anemia, presents with SOB. HPI was provided by Daughter Brianna. Brianna says that the patient has been wheezing since her last discharge that would come and go. She went to bed yesterday in her usual state of health; Upon waking, patient complained of chills and fatigue to Brianna. Patient then began to ambulate, and entered respiratory distress after about 25 ft requiring her to stop and sit. This is the first time the family noticed such difficulty with work of breathing; while sitting, Brianna noticed that her mothers legs looked erythematous. Upon further examination, she felt the left leg was more erytheamtous than the right, tender to palpation and warm. At this point, she measured a temp to be 101.3 prompting her to bring her mother to [facility]. also the daughter is mentioning that the patients leg is now very red and swollen patient currently placed on bipap - History Source History Provided By: Family Member Limitations to Obtaining History: Clinical Condition - Past Medical History Cardio/Vascular: Yes: AFIB, CHF, HTN ...: No Psych: Yes: Other Endocrine: Yes: Hypothyroidism - Alcohol/Substance Use Hx Alcohol Use: No - Smoking History Smoking history: Never smoked Have you smoked in the past 12 months: No If you are a former smoker, when did you quit?: 40 yrs ago Home Medications - Allergies Allergies/Adverse Reactions: Allergies Allergy/AdvReac Type Severity Reaction Status Date / Time Penicillins Allergy Intermediate Swelling Verified 12/21/18 11:27 - Home Medications Home Medications: Ambulatory Orders RX: Levothyroxine Sodium [Synthroid] 125 mcg PO DAILY 04/10/17 RX: Rivaroxaban [Xarelto -] 20 mg PO HS 04/10/17 Furosemide [Lasix] 20 mg PO DAILY #30 tablet 11/28/18 RX: Albuterol Sulfate Inhaler - [Ventolin HFA Inhaler -] 1 - 2 inh PO Q6H PRN # 1 inhaler 11/28/18 RX: Doxycycline Hyclate 100 mg PO BID #7 tablet 11/28/18 RX: Metoprolol Succinate [Toprol XL -] 100 mg PO DAILY #30 tab.sr.24h 11/28/18 RX: Prednisone See Taper PO DAILY #42 tablet 11/28/18 Spironolactone [Aldactone] 25 mg PO MOWEFR #20 tablet 11/28/18 Review of Systems Unable to obtain ROS, reason: unable to obtain Physical Exam Vital Signs: Vital Signs Temperature 99.4 F 12/22/18 09:21 Pulse Rate 98 H 12/22/18 09:21 Respiratory Rate 20 12/22/18 09:21 Blood Pressure 146/66 12/22/18 09:21 O2 Sat by Pulse Oximetry (%) 99 12/21/18 21:00 Constitutional: Yes: Well Nourished, Anxious, Moderate Distress Eyes: Yes: Conjunctiva Clear Neck: Yes: Supple Cardiovascular: Yes: Pulse Irregular Respiratory: Yes: On BiPap, Poor Air Entry Gastrointestinal: Yes: Normal Bowel Sounds, Soft Musculoskeletal: Yes: WNL Extremities: Yes: Erythema, Other (swollen) Neurological: Yes: Alert, Other Labs: CBC, BMP 12/22/18 05:35 12/22/18 05:35 Imaging - Results Chest X-ray: Report Reviewed, Image Reviewed Assessment/Plan Problem List - Problems (1) Afib Code(s): I48.91 - UNSPECIFIED ATRIAL FIBRILLATION Qualifiers: Atrial fibrillation type: other persistent Qualified Code(s): I48.19 - Other persistent atrial fibrillation (2) CHF exacerbation Code(s): I50.9 - HEART FAILURE, UNSPECIFIED Qualifiers: Heart failure type: diastolic Qualified Code(s): I50.33 - Acute on chronic diastolic (congestive) heart failure (3) Cellulitis Code(s): L03.90 - CELLULITIS, UNSPECIFIED Qualifiers: Site of cellulitis: extremity Site of cellulitis of extremity: lower extremity Laterality: left Qualified Code(s): L03.116 - Cellulitis of left lower limb (4) HTN (hypertension) Code(s): I10 - ESSENTIAL (PRIMARY) HYPERTENSION Qualifiers: Hypertension type: essential hypertension Qualified Code(s): I10 - Essential (primary) hypertension (5) Hypothyroid Code(s): E03.9 - HYPOTHYROIDISM, UNSPECIFIED Qualifiers: Hypothyroidism type: unspecified Qualified Code(s): E03.9 - Hypothyroidism , unspecified (6) Sepsis Code(s): A41.9 - SEPSIS, UNSPECIFIED ORGANISM Qualifiers: Sepsis type: sepsis due to unspecified organism Sepsis acute organ dysfunction status: without acute organ dysfunction Qualified Code(s): A41.9 - Sepsis, unspecified organism (7) Swelling of lower leg Code(s): M79.89 - OTHER SPECIFIED SOFT TISSUE DISORDERS 8 cellulitis of the left lower leg plan will start patient on abx close watch resp support rest as per the team
--- NOTE | 2018-12-22 11:53 | PN ---
Progress Note, Physician History of Present Illness: looks more better on nasal canula leg looks slightly better still angry red - Current Medication List Current Medications: Active Medications Acetaminophen (Tylenol -) 650 mg PO Q6H PRN PRN Reason: Fever Or Pain Last Admin: 12/21/18 21:39 Dose: 650 mg Diltiazem HCl (Cardizem Injection -) 10 mg IVPUSH Q4H PRN PRN Reason: TACHYCARDIA Last Admin: 12/21/18 16:36 Dose: 10 mg Furosemide (Lasix Injection -) 40 mg IVPUSH DAILY [facility] Cefepime HCl (Maxipime 1 Gm Premix Ivpb) 1 gm in 50 mls @ 100 mls/hr IVPB Q8H- IV ALYSSA; Protocol Vancomycin HCl (Vancomycin (Pre-Docked)) 1,000 mg in 250 mls @ 250 mls/hr IVPB ONCE ONE Stop: 12/22/18 11:59 Last Admin: 12/22/18 11:34 Dose: 250 mls/hr Cefepime HCl (Maxipime 1 Gm Premix Ivpb) 1 gm in 50 mls @ 100 mls/hr IVPB BID ALYSSA; Protocol Vancomycin HCl 1,250 mg/ (Dextrose) 250 mls @ 250 mls/2 hr IVPB Q24H ALYSSA; Protocol Levothyroxine Sodium (Synthroid -) 125 mcg PO DAILY@0700 [facility] Last Admin: 12/22/18 06:14 Dose: 125 mcg Metoprolol Succinate (Toprol Xl -) 100 mg PO DAILY [facility] Last Admin: 12/22/18 09:23 Dose: 100 mg Rivaroxaban (Xarelto) 20 mg PO DAILY@1730 [facility] Last Admin: 12/21/18 17:37 Dose: 20 mg Spironolactone (Aldactone -) 25 mg PO MOWEFR [facility] Vancomycin HCl (Vancomycin (Pre-Docked)) 1,000 mg IVPB DAILY [facility]; Protocol - Objective Vital Signs: Vital Signs Temperature 99.4 F 12/22/18 09:21 Pulse Rate 98 H 12/22/18 09:21 Respiratory Rate 20 12/22/18 09:21 Blood Pressure 146/66 12/22/18 09:21 O2 Sat by Pulse Oximetry (%) 99 12/21/18 21:00 Constitutional: Yes: No Distress, Calm Cardiovascular: Yes: S1, S2 Respiratory: Yes: Regular, CTA Bilaterally, On Nasal O2 Gastrointestinal: Yes: Normal Bowel Sounds, Soft Musculoskeletal: Yes: WNL Extremities: Yes: Erythema (redness), Other Integumentary: Yes: Erythema, Other Neurological: Yes: Alert, Oriented Psychiatric: Yes: Alert, Oriented Labs: CBC, BMP 12/22/18 05:35 12/22/18 05:35 INR, PTT INR 1.34 (0.83-1.09) H 12/21/18 12:00 Assessment/Plan Problem List - Problems (1) Afib Code(s): I48.91 - UNSPECIFIED ATRIAL FIBRILLATION Qualifiers: Atrial fibrillation type: other persistent Qualified Code(s): I48.19 - Other persistent atrial fibrillation (2) CHF exacerbation Code(s): I50.9 - HEART FAILURE, UNSPECIFIED Qualifiers: Heart failure type: diastolic Qualified Code(s): I50.33 - Acute on chronic diastolic (congestive) heart failure (3) Cellulitis Code(s): L03.90 - CELLULITIS, UNSPECIFIED Qualifiers: Site of cellulitis: extremity Site of cellulitis of extremity: lower extremity Laterality: left Qualified Code(s): L03.116 - Cellulitis of left lower limb (4) HTN (hypertension) Code(s): I10 - ESSENTIAL (PRIMARY) HYPERTENSION Qualifiers: Hypertension type: essential hypertension Qualified Code(s): I10 - Essential (primary) hypertension (5) Hypothyroid Code(s): E03.9 - HYPOTHYROIDISM, UNSPECIFIED Qualifiers: Hypothyroidism type: unspecified Qualified Code(s): E03.9 - Hypothyroidism , unspecified (6) Sepsis Code(s): A41.9 - SEPSIS, UNSPECIFIED ORGANISM Qualifiers: Sepsis type: sepsis due to unspecified organism Sepsis acute organ dysfunction status: without acute organ dysfunction Qualified Code(s): A41.9 - Sepsis, unspecified organism (7) Swelling of lower leg Code(s): M79.89 - OTHER SPECIFIED SOFT TISSUE DISORDERS 8 cellulitis of the left lower leg plan continue abx close monitoring rest as per the team resp support
[2018-12-22] MEDS: CEFEPIME 1 GM in DEXTROSE 5%-WATER - 50 ML IVPB SCH ×2 (12:02→21:29)
[2018-12-22] MEDS: VANCOMYCIN HCL 1,250 MG in DEXTROSE 5%-WATER - 250 ML IVPB SCH (12:03)
--- NOTE | 2018-12-22 14:28 | PN ---
Progress Note, Physician History of Present Illness: 73 yr old woman with PMH of diastolic CHF, anemia, Afib (s/p 2 ablations, currently on xarelto), hypothyroid, PVD and CAD, chronic venous stasis, chronic lower extremity wounds who presents to the ER with SOB, subjective fevers, worsening left leg swelling, redness, and weeping from her wounds. She denies chest pain, palpitations, near or true syncope, orthopnea, PND. - Current Medication List Current Medications: Active Medications Acetaminophen (Tylenol -) 650 mg PO Q6H PRN PRN Reason: Fever Or Pain Last Admin: 12/21/18 21:39 Dose: 650 mg Diltiazem HCl (Cardizem Injection -) 10 mg IVPUSH Q4H PRN PRN Reason: TACHYCARDIA Last Admin: 12/21/18 16:36 Dose: 10 mg Furosemide (Lasix Injection -) 40 mg IVPUSH DAILY [facility] Cefepime HCl 1 gm/ Dextrose 50 mls @ 100 mls/hr IVPB BID [facility]; Protocol Last Admin: 12/22/18 12:02 Dose: Not Given Vancomycin HCl 1,250 mg/ (Dextrose) 250 mls @ 250 mls/2 hr IVPB Q24H [facility]; Protocol Last Admin: 12/22/18 12:03 Dose: Not Given Levothyroxine Sodium (Synthroid -) 125 mcg PO DAILY@0700 [facility] Last Admin: 12/22/18 06:14 Dose: 125 mcg Metoprolol Succinate (Toprol Xl -) 100 mg PO DAILY [facility] Last Admin: 12/22/18 09:23 Dose: 100 mg Rivaroxaban (Xarelto) 20 mg PO DAILY@1730 [facility] Last Admin: 12/21/18 17:37 Dose: 20 mg Spironolactone (Aldactone -) 25 mg PO MOWEFR [facility] - Objective Vital Signs: Vital Signs Temperature 99.4 F 12/22/18 09:21 Pulse Rate 98 H 12/22/18 09:21 Respiratory Rate 20 12/22/18 09:21 Blood Pressure 146/66 12/22/18 09:21 O2 Sat by Pulse Oximetry (%) 100 12/22/18 09:00 Eyes: Yes: WNL, Conjunctiva Clear, EOM Intact HENT: Yes: WNL, Atraumatic, Normocephalic Neck: Yes: WNL, Supple, Trachea Midline, Tenderness Cardiovascular: Yes: Pulse Irregular, S1, S2 Respiratory: Yes: WNL, Regular, CTA Bilaterally Gastrointestinal: Yes: WNL, Normal Bowel Sounds Genitourinary: Yes: WNL Musculoskeletal: Yes: WNL Extremities: Yes: WNL Edema: Yes Integumentary: Yes: WNL Neurological: Yes: WNL, Alert, Oriented ...Motor Strength: WNL Psychiatric: Yes: WNL Labs: CBC, BMP 12/22/18 05:35 12/22/18 05:35 INR, PTT INR 1.34 (0.83-1.09) H 12/21/18 12:00 Assessment/Plan - Results Chest X-ray: Report Reviewed (NAD) Cat Scan: Report Reviewed (11/25/[address]: Possible mild congestion, bibasilar ATX L>R) Problem List - Problems (1) Afib Code(s): I48.91 - UNSPECIFIED ATRIAL FIBRILLATION Qualifiers: Atrial fibrillation type: other persistent Qualified Code(s): I48.19 - Other persistent atrial fibrillation (2) CHF exacerbation Code(s): I50.9 - HEART FAILURE, UNSPECIFIED Qualifiers: Heart failure type: diastolic Qualified Code(s): I50.33 - Acute on chronic diastolic (congestive) heart failure (3) Cellulitis Code(s): L03.90 - CELLULITIS, UNSPECIFIED Qualifiers: Site of cellulitis: extremity Site of cellulitis of extremity: lower extremity Laterality: left Qualified Code(s): L03.116 - Cellulitis of left lower limb (4) HTN (hypertension) Code(s): I10 - ESSENTIAL (PRIMARY) HYPERTENSION Qualifiers: Hypertension type: essential hypertension Qualified Code(s): I10 - Essential (primary) hypertension (5) Hypothyroid Code(s): E03.9 - HYPOTHYROIDISM, UNSPECIFIED Qualifiers: Hypothyroidism type: unspecified Qualified Code(s): E03.9 - Hypothyroidism , unspecified (6) Sepsis Code(s): A41.9 - SEPSIS, UNSPECIFIED ORGANISM Qualifiers: Sepsis type: sepsis due to unspecified organism Sepsis acute organ dysfunction status: without acute organ dysfunction Qualified Code(s): A41.9 - Sepsis, unspecified organism (7) Swelling of lower leg Code(s): M79.89 - OTHER SPECIFIED SOFT TISSUE DISORDERS Assessment/Plan 11/26/2018 Echo: Normal LV size and fxn, mild-mod MR, tr-mild TR - Problems (1) Sepsis Assessment/Plan: On IV antibiotics; f/u C&S, ID evaluation Antipyretics as needed (avoid NSAIDS). Code(s): A41.9 - SEPSIS, UNSPECIFIED ORGANISM Qualifiers: Sepsis type: sepsis due to unspecified organism Sepsis acute organ dysfunction status: without acute organ dysfunction Qualified Code(s): A41.9 - Sepsis, unspecified organism (2) Afib Assessment/Plan: EKG: rapid AF @ 160 Pt says amiodarone dose was lowered over several weeks from 200 mg to 50 mg daily, then stopped completely in 05/2018.Stress MIBI done 2018 reportedly showed no ischemia. She was continued on metoprolol. Plan: continue long-acting metoprolol XL 100 qd with IV Cardizem as needed for rate-control Continue Xarelto 20 qhs for anticoagulation. ECHO: normal LVEF; mild borderline LAE; mild-moderate MR; trace to mild TR. Code(s): I48.91 - UNSPECIFIED ATRIAL FIBRILLATION (3) Cellulitis Assessment/Plan: 11/27/2018 LE doppler negative for DVT bilaterally, abx per ID, compression therapy once cellulitis improved Code(s): L03.90 - CELLULITIS, UNSPECIFIED Qualifiers: Site of cellulitis: extremity Site of cellulitis of extremity: lower extremity Laterality: left Qualified Code(s): L03.116 - Cellulitis of left lower limb (4) HTN (hypertension) Assessment/Plan: IV furosemide and aldactone for CHF with monitor diuretic response, renal fxn and electrolytes Stopped amlodipine.; increased dose of metoprolol (and changed to long-acting) for CHF and HR. Code(s): I10 - ESSENTIAL (PRIMARY) HYPERTENSION (5) Hypothyroid Assessment/Plan: TSH 1.16; on Synthroid. Code(s): E03.9 - HYPOTHYROIDISM, UNSPECIFIED
[2018-12-22] MEDS: ACETAMINOPHEN 325 MG TABLET (FP) PO PRN (15:42)
[2018-12-22] MEDS: SPIRONOLACTONE 25 MG TABLET (FP) PO SCH (15:43)
--- NOTE | 2018-12-22 15:58 | EKG ---
Test Reason : Blood Pressure : / mmHG Vent. Rate : 160 BPM Atrial Rate : 192 BPM P-R Int : 000 ms QRS Dur : 082 ms QT Int : 242 ms P-R-T Axes : 000 -02 119 degrees QTc Int : 394 ms ATRIAL FIBRILLATION WITH RAPID VENTRICULAR RESPONSE ABNORMAL ECG WHEN COMPARED WITH ECG OF 26-NOV-2018 09:09, VENT. RATE HAS INCREASED BY 65 BPM T WAVE VARIATION Confirmed by ALLISON YOON MD ([id number]) on 12/22/2018 3:57:36 PM Referred By: Confirmed By:ALLISON YOON MD
--- NOTE | 2018-12-22 16:09 | PN ---
Teaching Attending Note Name of Resident: Connor Mills ATTENDING PHYSICIAN STATEMENT I saw and evaluated the patient. I reviewed the resident's note and discussed the case with the resident. I agree with the resident's findings and plan as documented. SUBJECTIVE: Patient reports SOB is improving. OBJECTIVE: Vital Signs Period Temp Pulse Resp BP Sys/Ray Pulse Ox Last 24 Hr 99.4 F-102 F 98-115 20-20 121-152/66-94 99-100 HEART: Irregular LUNGS: Clear ABDOMEN: Obese, soft, non-tender, non-distended, normal BS EXTREMITIES: 2+ edema, chronic venous stasis changes Laboratory Results - last 24 hr 12/21/18 12/22/18 12/22/18 17:24 05:35 05:35 WBC 11.4 H RBC 3.37 L Hgb 10.3 L Hct 31.4 L D MCV 93.2 MCH 30.5 MCHC 32.8 RDW 17.4 H Plt Count 127 L D MPV 9.9 Absolute Neuts (auto) 9.2 H Neutrophils % 80.9 Lymphocytes % 11.9 D Monocytes % 6.7 Eosinophils % 0.1 D Basophils % 0.4 Nucleated RBC % 0 Sodium 139 Potassium 3.7 Chloride 103 Carbon Dioxide 28 Anion Gap 8 BUN 15.0 Creatinine 1.4 H Est GFR (CKD-EPI)AfAm 42.49 Est GFR (CKD-EPI)NonAf 36.66 Random Glucose 99 Lactic Acid 1.6 Calcium 7.9 L Phosphorus 3.0 Magnesium 2.0 Total Bilirubin 1.1 H AST 17 ALT 53 Alkaline Phosphatase 80 Total Protein 6.3 L Albumin 2.7 L TSH 3.41 Current Medications Generic Name Dose Route Start Last Admin Trade Name Freq PRN Reason Stop Dose Admin Acetaminophen 650 mg 12/21/18 16:23 12/21/18 21:39 Tylenol - PO 650 mg Q6H PRN Administration Fever Or Pain Diltiazem HCl 10 mg 12/21/18 14:58 12/21/18 16:36 Cardizem Injection - IVPUSH 10 mg Q4H PRN Administration TACHYCARDIA Furosemide 40 mg 12/23/18 10:00 Lasix Injection - IVPUSH DAILY [facility] Cefepime HCl 1 gm/ Dextrose 50 mls @ 100 mls/hr 12/22/18 12:00 12/22/18 12:02 IVPB Not Given BID [facility] Protocol Vancomycin HCl 1,250 mg/ 250 mls @ 250 mls/2 hr 12/22/18 12:00 12/22/18 12:03 Dextrose IVPB Not Given Q24H [facility] Protocol Levothyroxine Sodium 125 mcg 12/22/18 07:00 12/22/18 06:14 Synthroid - PO 125 mcg DAILY@0700 [facility] Administration Metoprolol Succinate 100 mg 12/21/18 14:45 12/22/18 09:23 Toprol Xl - PO 100 mg DAILY [facility] Administration Rivaroxaban 20 mg 12/21/18 17:30 12/21/18 17:37 Xarelto PO 20 mg DAILY@1730 [facility] Administration Spironolactone 25 mg 12/22/18 14:32 Aldactone - PO MOWEFR [facility] ASSESSMENT AND PLAN: This is a 73 year old woman with a history of CAD, HTN, atrial fib and ablation x 2, chronic diastolic heart failure, anemia, hypothyroidism, PAD, chronic venous stasis, chronic leg wounds who presented to the ED with SOB, fever, worsening left leg swelling, redness, and weeping. 1. Severe sepsis secondary to LLE cellulitis - Continue cefepime, vancomycin - Blood cultures negative after 24 hours 2. Atrial fib, permanent, with RVR - Rate controlled now - Continue Toprol XL, Cardizem IV as needed, Xarelto 3. Acute hypoxic respiratory failure secondary to acute on chronic diastolic heart failure - Continue Lasix IV, Aldactone 4. CAD - Continue Toprol XL 5. HTN - Continue Toprol XL, Lasix, Aldactone 6. Hypothyroidism - Continue Synthroid 7. Anemia - Normocytic - Likely secondary to chronic illness - Check iron studies 8. PAD 9. Chronic venous stasis
--- NOTE | 2018-12-22 17:15 | PN ---
Physical Exam: SUBJECTIVE: Patient seen and examined NAEON. Endorses improvement in SOB and now issue lying supine OBJECTIVE: Vital Signs Period Temp Pulse Resp BP Sys/Ray Pulse Ox Last 24 Hr 99.3 F-102 F 90-115 20-20 121-152/66-94 99-100 GENERAL: The patient is awake, alert, no acute distress. HEAD: Normal with no signs of trauma. EYES: sclera anicteric, conjunctiva clear. ENT: nares patent, moist mucous membranes. NECK: Trachea midline, full range of motion, supple. LUNGS: mild crackles to b/l lung bases, no accessory muscle use. Breathing RA HEART: Regular rate and rhythm, S1, S2 without murmur, rub or gallop. ABDOMEN: Soft, nontender, no guarding, no rebound, no masses EXTREMITIES: 1+ pulses, warm, well-perfused. 2+ pitting edema to BLE. Redness, warmth to LLE NEUROLOGICAL: Normal speech, gait not observed. Laboratory Results - last 24 hr 12/21/18 12/22/18 12/22/18 17:24 05:35 05:35 WBC 11.4 H RBC 3.37 L Hgb 10.3 L Hct 31.4 L D MCV 93.2 MCH 30.5 MCHC 32.8 RDW 17.4 H Plt Count 127 L D MPV 9.9 Absolute Neuts (auto) 9.2 H Neutrophils % 80.9 Lymphocytes % 11.9 D Monocytes % 6.7 Eosinophils % 0.1 D Basophils % 0.4 Nucleated RBC % 0 Sodium 139 Potassium 3.7 Chloride 103 Carbon Dioxide 28 Anion Gap 8 BUN 15.0 Creatinine 1.4 H Est GFR (CKD-EPI)AfAm 42.49 Est GFR (CKD-EPI)NonAf 36.66 Random Glucose 99 Lactic Acid 1.6 Calcium 7.9 L Phosphorus 3.0 Magnesium 2.0 Total Bilirubin 1.1 H AST 17 ALT 53 Alkaline Phosphatase 80 Total Protein 6.3 L Albumin 2.7 L TSH 3.41 Active Medications Generic Name Dose Route Start Last Admin Trade Name Freq PRN Reason Stop Dose Admin Acetaminophen 650 mg 12/21/18 16:23 12/22/18 15:42 Tylenol - PO 650 mg Q6H PRN Administration Fever Or Pain Diltiazem HCl 10 mg 12/21/18 14:58 12/21/18 16:36 Cardizem Injection - IVPUSH 10 mg Q4H PRN Administration TACHYCARDIA Furosemide 40 mg 12/23/18 10:00 Lasix Injection - IVPUSH DAILY [facility] Cefepime HCl 1 gm/ Dextrose 50 mls @ 100 mls/hr 12/22/18 12:00 12/22/18 12:02 IVPB Not Given BID [facility] Protocol Vancomycin HCl 1,250 mg/ 250 mls @ 250 mls/2 hr 12/22/18 12:00 12/22/18 12:03 Dextrose IVPB Not Given Q24H [facility] Protocol Levothyroxine Sodium 125 mcg 12/22/18 07:00 12/22/18 06:14 Synthroid - PO 125 mcg DAILY@0700 [facility] Administration Metoprolol Succinate 100 mg 12/21/18 14:45 12/22/18 09:23 Toprol Xl - PO 100 mg DAILY [facility] Administration Rivaroxaban 20 mg 12/21/18 17:30 12/21/18 17:37 Xarelto PO 20 mg DAILY@1730 [facility] Administration Spironolactone 25 mg 12/22/18 14:32 12/22/18 15:43 Aldactone - PO 25 mg MOWEFR [facility] Administration Vital Signs Temp 99.3 F 12/22/18 14:00 Pulse 90 12/22/18 14:00 Resp 20 12/22/18 14:00 BP 136/72 12/22/18 14:00 Pulse Ox 100 12/22/18 09:00 Intake & Output 12/21/18 12/22/18 12/22/18 23:59 11:59 23:59 Intake Total 180 300 Output Total 200 Balance 180 100 Weight 120.202 kg Intake: IV 20 saline lock 20 IVPB 100 Oral 180 180 Output: Urine 200 External Catheter 200 Other: Voiding Method Diaper External Catheter # Unmeasured Voids Void 2 1 Bowel Movement No Height 5 ft 2 in Body Mass Index (BMI) 48.4 Weight Measurement Method Stated by Caregiver ASSESSMENT/PLAN: 73 y/o F with PMHx of HFpEF (Echo 11/20), CAD (Cath 2 years ago, No Stents), AFib (on Xarelto), Anemia, who recently discharged from [facility] in November 2018 ( treated for AFib with RVR) presents with SOB. #Sepsis 2/2 LLE cellulitis > lactic acid 2.8->1.6 -Vanco, Zosyn (ABx course Started on 12/21) --dc'd -ID Consulted --cw abx --cefepime + vancomycin --day 2 -Compression therapy via Jeferson bandage wraps, Compression stockings #Acute CHF exacerbation --possibly 2/2 AFib with RVR > CXR(12/21/18): cardiomegaly, mildly prominen central hilar vessels > TSH ~3.41 > BNP ~2260 -s/p IV Furosemide 20mg x1 in ED; Continue with 40mg IV BID -cw home Spironolactone 25mg M// -Monitor Daily weights, I&Os, Cr #AFIb with RVR > EKG: rate 160s > Recent Echo (11/20) reveals Preserved EF - cardio consult: --metoprolol XL 100mg, Cardizem 10mg PRN --xarelto 20mg QD #GEMMA, 2/2 heart failure > baseline ~ 1.0, Cr 1.4 - trend Cr #HTN -Continue Furosemide, Metoprolol Succinate, Spironolactone #FEN -No standing fluids -Replete lytes PRN -Cholesterol/Fat controlled diet #PPx -DVT: DOAC Dispo: Admit to Tele Visit type - Emergency Visit Emergency Visit: No - New Patient This patient is new to me today: No - Critical Care Critical Care patient: No ATTENDING PHYSICIAN STATEMENT I saw and evaluated the patient. I reviewed the resident's note and discussed the case with the resident. I agree with the resident's findings and plan as documented. SUBJECTIVE: OBJECTIVE: ASSESSMENT AND PLAN:
[2018-12-22] MEDS: RIVAROXABAN 20 MG TABLET PO SCH (18:38)
[2018-12-22] MEDS ORDERED: DEXTROSE 5%-WATER - 50 ML IVPB ONE (21:20)
[2018-12-23] MEDS: ACETAMINOPHEN 325 MG TABLET (FP) PO PRN ×2 (03:43→17:40)
[2018-12-23] MEDS: LEVOTHYROXINE NA 125 MCG TABLET (FP) PO SCH (06:49)
[2018-12-23 07:17] LABS: HEMATOCRIT 29.9 % (32.4-45.2); HEMOGLOBIN 9.9 GM/dL (10.7-15.3); MCH 31.1 pg (25.7-33.7); MCHC 33.2 g/dl (32.0-36.0); MEAN CELL VOLUME 93.5 fl (80-96); MEAN PLT VOLUME 10.2 fl (7.5-11.1); PLATELET COUNT 123 K/MM3 (134-434); RDW 17.1 % (11.6-15.6)
[2018-12-23 07:45] LABS: BLOOD UREA NITROGEN 14.8 mg/dL (7-18); CALCIUM 7.9 mg/dL (8.5-10.1); CREATININE 1.2 mg/dL (0.55-1.3); MAGNESIUM 2.3 mg/dL (1.8-2.4); PHOSPHOROUS 2.6 mg/dL (2.5-4.9); POTASSIUM 3.7 mmol/L (3.5-5.1)
[2018-12-23] MEDS ORDERED: CEFEPIME HCL 1 GM VIAL (RESTRICTED TO ID) ONE ×2 (09:05→21:23)
[2018-12-23] MEDS ORDERED: DEXTROSE 5%-WATER - 50 ML IVPB ONE ×2 (09:06→21:24)
[2018-12-23] MEDS: FUROSEMIDE 40 MG/4 ML INJECTABLE VIAL IVPUSH SCH (09:55)
[2018-12-23] MEDS: CEFEPIME 1 GM in DEXTROSE 5%-WATER - 50 ML IVPB SCH ×2 (10:00→21:35)
--- NOTE | 2018-12-23 10:06 | CONSULT ---
- Consultation REQUESTING PROVIDER: CONSULT REQUEST: We have been asked to surgically evaluate this patient for venous stasis disease. PCP:Hima Bermudez MD HISTORY OF PRESENT ILLNESS: 73 y/o F w/ PMHx of HFpEF AFib (on Xarelto), Anemia , a/w SOB. Vascular/wound care consulted for le lymphadema. Pt reports a lengthy history of le edema/skin changes that began 4 years ago after sustaining a hematoma to her Right lindsay after spilling a bucket of ice outdoors during the winter. Pt was sent to [facility] by her PCP where she had the hematoma drained. Pt was left with a large wound which healed over the course of months with bi-weekly wound care. Reports shortly after this she had an attack on her le's by fleas brought in from her cats. States she developed hardened lesions on her legs and was told these are "flea eggs" which have burrowed into her skin. Denies any ulcers since the initial trauma. Reports 2-3 episodes of cellulitis for which she was hospitalized and resolved with abx. Has remote h/o social tobacco use >40 years ago. Ambulates unlimited without assistive devices. Denies h/o CHF or CKD, denies le dvts (has had 1 prior duplex ). Does not use compression therapy. PMHx: as above PSHx: Rotator cuff, Hysterectomy, Bladder ablation, Cardioversion x2 Home Medications Medication Instructions Recorded Levothyroxine Sodium [Synthroid] 125 mcg PO DAILY 04/10/17 Rivaroxaban [Xarelto -] 20 mg PO HS 04/10/17 Albuterol Sulfate Inhaler - 1 - 2 inh PO Q6H PRN #1 inhaler 11/28/18 [Ventolin HFA Inhaler -] Doxycycline Hyclate 100 mg PO BID #7 tablet 11/28/18 Furosemide [Lasix] 20 mg PO DAILY #30 tablet 11/28/18 Metoprolol Succinate [Toprol XL -] 100 mg PO DAILY #30 tab.sr.24h 11/28/18 Prednisone See Taper PO DAILY #42 tablet 11/28/18 Spironolactone [Aldactone] 25 mg PO MOWEFR #20 tablet 11/28/18 Amiodarone HCl 200 mg PO DAILY 12/22/18 Amlodipine Besylate 10 mg PO DAILY 12/22/18 Furosemide 80 mg PO BID 12/22/18 Levothyroxine [Synthroid -] 112 mcg PO DAILY 12/22/18 Metformin HCl [Glucophage] 500 mg PO AM 12/22/18 Allergies Allergy/AdvReac Type Severity Reaction Status Date / Time Penicillins Allergy Intermediate Swelling Verified 12/21/18 11:27 REVIEW OF SYSTEMS: CONSTITUTIONAL: Absent: diaphoresis, generalized weakness CARDIOVASCULAR: Absent: chest pain, syncope RESPIRATORY: Absent: cough GASTROINTESTINAL: Absent: abdominal pain PHYSICAL EXAM: GENERAL: Awake, alert, and fully oriented, in no acute distress. HEAD: Normal with no signs of trauma. LOWER EXTREMITIES: b/l les with 2+ pitting edema to shins, L>R. + stasis papillomatosis b/l, hypertrophic skin changes. Well healed scar over right anterior lindsay, no open ulcers. + erythema along lateral aspect of L calf, minimally increased warmth. Vasc: 2+ b/l dps, cannot appreciate PTS due to edema/skin changes. Vital Signs Temperature 98.8 F 12/23/18 06:00 Pulse Rate 105 H 12/23/18 06:00 Respiratory Rate 20 12/23/18 06:00 Blood Pressure 104/57 L 12/23/18 06:00 O2 Sat by Pulse Oximetry (%) 95 12/22/18 21:00 Lab Results WBC 11.0 K/mm3 (4.0-10.0) H 12/23/18 06:00 RBC 3.20 M/mm3 (3.60-5.2) L 12/23/18 06:00 Hgb 9.9 GM/dL (10.7-15.3) L 12/23/18 06:00 Hct 29.9 % (32.4-45.2) L 12/23/18 06:00 MCV 93.5 fl (80-96) 12/23/18 06:00 MCHC 33.2 g/dl (32.0-36.0) 12/23/18 06:00 RDW 17.1 % (11.6-15.6) H 12/23/18 06:00 Plt Count 123 K/MM3 (134-434) L 12/23/18 06:00 Sodium 139 mmol/L (136-145) 12/23/18 06:00 Potassium 3.7 mmol/L (3.5-5.1) 12/23/18 06:00 Chloride 102 mmol/L (98-107) 12/23/18 06:00 Carbon Dioxide 31 mmol/L (21-32) 12/23/18 06:00 Anion Gap 6 MMOL/L (8-16) L 12/23/18 06:00 BUN 14.8 mg/dL (7-18) 12/23/18 06:00 Creatinine 1.2 mg/dL (0.55-1.3) 12/23/18 06:00 Random Glucose 90 mg/dL (74-106) 12/23/18 06:00 Calcium 7.9 mg/dL (8.5-10.1) L 12/23/18 06:00 INR 1.34 (0.83-1.09) H 12/21/18 12:00 Duplex (Venous ) 12/22/18: No dvt b/l A/P: 73 y/o F w/ PMHx of HFpEF AFib (on Xarelto), Anemia, a/w SOB. 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 Extensive discussion with pt regarding le lymphadema. reassurance provided that skin changes are not larvae of flea eggs. Lymphadema has many causes and parasitic infections are a possibility, however the skin changes are related to the process of the condition. -Continue antibiotics per ID/medical team -Elevate the lower extremity above the level of the heart at all times while at rest -Bilateral compression with bernie wraps once cellulitis has receded (wrap from metacarpal heads to below knee) -Apply Lac hydrin daily (for dry scaly skin) -Compression therapy discussed with pt at length, reports she will obtain some after discharge and see if they help -Pt may f/u with Dr Ramirez in the office within the next few weeks for reflux study d/w attending Dr Ramirez
--- NOTE | 2018-12-23 12:08 | EKG ---
Test Reason : Blood Pressure : / mmHG Vent. Rate : 097 BPM Atrial Rate : 097 BPM P-R Int : 000 ms QRS Dur : 086 ms QT Int : 350 ms P-R-T Axes : 000 032 106 degrees QTc Int : 444 ms ATRIAL FIBRILLATION NONSPECIFIC T WAVE ABNORMALITY ABNORMAL ECG WHEN COMPARED WITH ECG OF 21-DEC-2018 12:07, VENT. RATE HAS DECREASED BY 63 BPM Confirmed by Jim Maurice MD ([id number]) on 12/23/2018 12:07:50 PM Referred By: CRISTIAN TRINH Confirmed By:Jim Maurice MD
[2018-12-23] MEDS ORDERED: PT OWN MED DRAWER 7, Y5N ONE (12:10)
[2018-12-23] MEDS: VANCOMYCIN HCL 1,250 MG in DEXTROSE 5%-WATER - 250 ML IVPB SCH (12:52)
[2018-12-23] MEDS: AMMONIUM LACTATE 12% LOTION 225 GM BOTTLE TP SCH (12:52)
--- NOTE | 2018-12-23 13:28 | PN ---
Progress Note, Physician - Current Medication List Current Medications: Active Medications Acetaminophen (Tylenol -) 650 mg PO Q6H PRN PRN Reason: Fever Or Pain Last Admin: 12/23/18 03:43 Dose: 650 mg Diltiazem HCl (Cardizem Injection -) 10 mg IVPUSH Q4H PRN PRN Reason: TACHYCARDIA Last Admin: 12/21/18 16:36 Dose: 10 mg Furosemide (Lasix Injection -) 40 mg IVPUSH DAILY [facility] Last Admin: 12/23/18 09:55 Dose: 40 mg Cefepime HCl 1 gm/ Dextrose 50 mls @ 100 mls/hr IVPB BID [facility]; Protocol Last Admin: 12/23/18 10:00 Dose: 100 mls/hr Vancomycin HCl 1,250 mg/ (Dextrose) 250 mls @ 250 mls/2 hr IVPB Q24H [facility]; Protocol Last Admin: 12/23/18 12:52 Dose: 250 mls/2 hr Lactic Acid (Lac-Hydrin 12) 1 applic TP DAILY [facility] Last Admin: 12/23/18 12:52 Dose: 1 applic Levothyroxine Sodium (Synthroid -) 125 mcg PO DAILY@0700 [facility] Last Admin: 12/23/18 06:49 Dose: 125 mcg Metoprolol Succinate (Toprol Xl -) 100 mg PO DAILY [facility] Last Admin: 12/23/18 09:55 Dose: 100 mg Rivaroxaban (Xarelto) 20 mg PO DAILY@1730 [facility] Last Admin: 12/22/18 18:38 Dose: 20 mg Spironolactone (Aldactone -) 25 mg PO MOWEFR [facility] Last Admin: 12/22/18 15:43 Dose: 25 mg - Objective Vital Signs: Vital Signs Temperature 98.4 F 12/23/18 10:00 Pulse Rate 110 H 12/23/18 10:00 Respiratory Rate 20 12/23/18 10:00 Blood Pressure 112/94 12/23/18 10:00 O2 Sat by Pulse Oximetry (%) 95 12/22/18 21:00 Labs: CBC, BMP 12/23/18 06:00 12/23/18 06:00 INR, PTT INR 1.34 (0.83-1.09) H 12/21/18 12:00
--- NOTE | 2018-12-23 16:25 | PN ---
Teaching Attending Note Name of Resident: Connor Mills ATTENDING PHYSICIAN STATEMENT I saw and evaluated the patient. I reviewed the resident's note and discussed the case with the resident. I agree with the resident's findings and plan as documented. SUBJECTIVE: SOB improving, LLE pain/redness improving. No fever/chills. OBJECTIVE: Fever resolved, hemodynamically Stable Last Vital Signs Temp Pulse Resp BP Pulse Ox 98.4 F 110 H 20 112/94 95 12/23/18 10:00 12/23/18 10:00 12/23/18 10:00 12/23/18 10:00 12/22/18 21:00 HEAD: Atraumatic, Normocephalic. HEART: Irregular. LUNGS: Clear to auscultation ABDOMEN: High BMI. Soft, non-tender, non-distended, normal BS EXTREMITIES: LE edema, chronic venous stasis changes, L>R. R LE erythema ++. Laboratory Results - last 24 hr 12/23/18 12/23/18 06:00 06:00 WBC 11.0 H RBC 3.20 L Hgb 9.9 L Hct 29.9 L MCV 93.5 MCH 31.1 MCHC 33.2 RDW 17.1 H Plt Count 123 L MPV 10.2 Sodium 139 Potassium 3.7 Chloride 102 Carbon Dioxide 31 Anion Gap 6 L BUN 14.8 Creatinine 1.2 Est GFR (CKD-EPI)AfAm 51.20 Est GFR (CKD-EPI)NonAf 44.17 Random Glucose 90 Calcium 7.9 L Phosphorus 2.6 Magnesium 2.3 Current Medications Generic Name Dose Route Start Last Admin Trade Name Freq PRN Reason Stop Dose Admin Acetaminophen 650 mg 12/21/18 16:23 12/23/18 03:43 Tylenol - PO 650 mg Q6H PRN Administration Fever Or Pain Diltiazem HCl 10 mg 12/21/18 14:58 12/21/18 16:36 Cardizem Injection - IVPUSH 10 mg Q4H PRN Administration TACHYCARDIA Furosemide 40 mg 12/23/18 10:00 12/23/18 09:55 Lasix Injection - IVPUSH 40 mg DAILY ALYSSA Administration Cefepime HCl 1 gm/ Dextrose 50 mls @ 100 mls/hr 12/22/18 12:00 12/23/18 10:00 IVPB 100 mls/hr BID ALYSSA Administration Protocol Vancomycin HCl 1,250 mg/ 250 mls @ 250 mls/2 hr 12/22/18 12:00 12/23/18 12:52 Dextrose IVPB 250 mls/2 hr Q24H ALYSSA Administration Protocol Lactic Acid 1 applic 12/23/18 10:45 12/23/18 12:52 Lac-Hydrin 12 TP 1 applic DAILY ALYSSA Administration Levothyroxine Sodium 125 mcg 12/22/18 07:00 12/23/18 06:49 Synthroid - PO 125 mcg DAILY@0700 ALYSSA Administration Metoprolol Succinate 100 mg 12/21/18 14:45 12/23/18 09:55 Toprol Xl - PO 100 mg DAILY ALYSSA Administration Rivaroxaban 20 mg 12/21/18 17:30 12/22/18 18:38 Xarelto PO 20 mg DAILY@1730 ALYSSA Administration Spironolactone 25 mg 12/22/18 14:32 12/22/18 15:43 Aldactone - PO 25 mg MOWEFR ALYSSA Administration Home Medications Medication Instructions Recorded Levothyroxine Sodium [Synthroid] 125 mcg PO DAILY 04/10/17 Rivaroxaban [Xarelto -] 20 mg PO HS 04/10/17 Albuterol Sulfate Inhaler - 1 - 2 inh PO Q6H PRN #1 inhaler 11/28/18 [Ventolin HFA Inhaler -] Doxycycline Hyclate 100 mg PO BID #7 tablet 11/28/18 Furosemide [Lasix] 20 mg PO DAILY #30 tablet 11/28/18 Metoprolol Succinate [Toprol XL -] 100 mg PO DAILY #30 tab.sr.24h 11/28/18 Prednisone See Taper PO DAILY #42 tablet 11/28/18 Spironolactone [Aldactone] 25 mg PO MOWEFR #20 tablet 11/28/18 Amiodarone HCl 200 mg PO DAILY 12/22/18 Amlodipine Besylate 10 mg PO DAILY 12/22/18 Furosemide 80 mg PO BID 12/22/18 Levothyroxine [Synthroid -] 112 mcg PO DAILY 12/22/18 Metformin HCl [Glucophage] 500 mg PO AM 12/22/18 ASSESSMENT AND PLAN: 73 year old female with a history of CAD, HTN, Hypothyroidism, Atrial Fibrillation s/p Ablation x 2, chronic diastolic heart failure, anemia, hypothyroidism, PAD, chronic venous stasis, chronic leg wounds who presented to the ED with SOB, fever, worsening left leg swelling, redness, and weeping. 1. Severe sepsis secondary to LLE cellulitis and UTI - Afebrile, hemodynamically Stable. UCx pos for EColi. Blood Cx neg. Continue Cefepime, Vancomycin. 2. Atrial Fibrillation with RVR - rate controlled. Continue Toprol XL, Cardizem IV as needed, Xarelto 3. Acute Hypoxic Respiratory Failure secondary to acute on chronic diastolic heart failure - improving - Continue IV Lasix, Aldactone 4. CAD - Continue Toprol XL 5. HTN - Continue Toprol XL, Lasix, Aldactone 6. Hypothyroidism - Continue Synthroid. TSH 3.41 7. Anemia - Normocytic. Likely sec to chronic disease. Will send work-up. 8. PAD - on Xarelto 9. Chronic venous stasis/Lympedema - continue wound care/vascular Sx/Aldactone/ Lasix. DVT Px - on Xarelto
[2018-12-23] MEDS: RIVAROXABAN 20 MG TABLET PO SCH (17:41)
--- NOTE | 2018-12-23 20:16 | PN ---
Physical Exam: SUBJECTIVE: Patient seen and examined NAEON. Tele showing HR 100s - 120s Bedside EKG showing Afib, HR 90s In AM, endorses improvement in LLE pain. Feels well In PM, endorses fever OBJECTIVE: Vital Signs Period Temp Pulse Resp BP Sys/Ray Pulse Ox Last 24 Hr 98.4 F-102.8 F 84-112 20-20 104-143/57-94 95-95 GENERAL: The patient is awake, alert, no acute distress. HEAD: Normal with no signs of trauma. EYES: sclera anicteric, conjunctiva clear. ENT: nares patent, moist mucous membranes. NECK: Trachea midline, full range of motion, supple. LUNGS: mild crackles to b/l lung bases, no accessory muscle use. Breathing RA HEART: Regular rate and rhythm, S1, S2 without murmur, rub or gallop. ABDOMEN: Soft, nontender, no guarding, no rebound, no masses EXTREMITIES: 1+ pulses, warm, well-perfused. 2+ pitting edema to BLE. Redness, warmth to LLE NEUROLOGICAL: Normal speech, gait not observed. Laboratory Results - last 24 hr 12/23/18 12/23/18 06:00 06:00 WBC 11.0 H RBC 3.20 L Hgb 9.9 L Hct 29.9 L MCV 93.5 MCH 31.1 MCHC 33.2 RDW 17.1 H Plt Count 123 L MPV 10.2 Sodium 139 Potassium 3.7 Chloride 102 Carbon Dioxide 31 Anion Gap 6 L BUN 14.8 Creatinine 1.2 Est GFR (CKD-EPI)AfAm 51.20 Est GFR (CKD-EPI)NonAf 44.17 Random Glucose 90 Calcium 7.9 L Phosphorus 2.6 Magnesium 2.3 Active Medications Generic Name Dose Route Start Last Admin Trade Name Freq PRN Reason Stop Dose Admin Acetaminophen 650 mg 12/21/18 16:23 12/23/18 17:40 Tylenol - PO 650 mg Q6H PRN Administration Fever Or Pain Diltiazem HCl 10 mg 12/21/18 14:58 12/21/18 16:36 Cardizem Injection - IVPUSH 10 mg Q4H PRN Administration TACHYCARDIA Furosemide 40 mg 12/23/18 10:00 12/23/18 09:55 Lasix Injection - IVPUSH 40 mg DAILY ALYSSA Administration Cefepime HCl 1 gm/ Dextrose 50 mls @ 100 mls/hr 12/22/18 12:00 12/23/18 10:00 IVPB 100 mls/hr BID ALYSSA Administration Protocol Vancomycin HCl 1,250 mg/ 250 mls @ 250 mls/2 hr 12/22/18 12:00 12/23/18 12:52 Dextrose IVPB 250 mls/2 hr Q24H ALYSSA Administration Protocol Lactic Acid 1 applic 12/23/18 10:45 12/23/18 12:52 Lac-Hydrin 12 TP 1 applic DAILY ALYSSA Administration Levothyroxine Sodium 125 mcg 12/22/18 07:00 12/23/18 06:49 Synthroid - PO 125 mcg DAILY@0700 ALYSSA Administration Metoprolol Succinate 100 mg 12/21/18 14:45 12/23/18 09:55 Toprol Xl - PO 100 mg DAILY ALYSSA Administration Rivaroxaban 20 mg 12/21/18 17:30 12/23/18 17:41 Xarelto PO 20 mg DAILY@1730 ALYSSA Administration Spironolactone 25 mg 12/22/18 14:32 12/22/18 15:43 Aldactone - PO 25 mg MOWEFR ALYSSA Administration Vital Signs Temp 102.8 F H 12/23/18 17:33 Pulse 112 H 12/23/18 14:00 Resp 20 12/23/18 14:00 BP 118/70 12/23/18 14:00 Pulse Ox 95 12/23/18 09:00 Intake & Output 12/22/18 12/23/18 12/23/18 23:59 11:59 23:59 Intake Total 600 70 Output Total 200 Balance 400 70 Weight 117.39 kg Intake: IV 20 saline lock 20 IVPB 350 50 Oral 250 Output: Urine 200 External Catheter 200 Other: Voiding Method External Catheter Bedside Commode Bowel Movement No Weight Measurement Method Standing Scale ASSESSMENT/PLAN: 73 y/o F with PMHx of HFpEF (Echo 11/20), CAD (Cath 2 years ago, No Stents), AFib (on Xarelto), Anemia, who recently discharged from [facility] in November 2018 ( treated for AFib with RVR) presents with SOB. #Sepsis 2/2 LLE cellulitis > lactic acid 2.8->1.6 > fever 102.8F on 12/23/18 - fu CXR, UA, UCX, BCX -Vanco, Zosyn (ABx course Started on 12/21) --dc'd -ID Consulted --cw abx --cefepime + vancomycin --day 2 #normocytic anemia > Hgb 12.4->10.3-->9.9 > MCV 93-94 - fu iron, folate studies #chronic BLE venous congestion -wound/vascular consult: --Elevate the lower extremity above the level of the heart at all times while at rest --Bilateral compression with bernie wraps once cellulitis has receded (wrap from metacarpal heads to below knee) --Apply Lac hydrin daily (for dry scaly skin) --Compression therapy discussed with pt at length, reports she will obtain some after discharge and see if they help --Pt may f/u with Dr Ramirez in the office within the next few weeks for reflux study #Acute CHF exacerbation --possibly 2/2 AFib with RVR > CXR(12/21/18): cardiomegaly, mildly prominen central hilar vessels > TSH ~3.41 > BNP ~2260 -s/p IV Furosemide 20mg x1 in ED; Continue with 40mg IV BID -cw home Spironolactone 25mg M// -Monitor Daily weights, I&Os, Cr #AFib with RVR > EKG: rate 160s > EKG(12/23/18): rate 90s > Recent Echo (11/20) reveals Preserved EF > TSH 3.4 - cardio consult: --metoprolol XL 100mg, Cardizem 10mg PRN --xarelto 20mg QD #GEMMA, 2/2 heart failure > baseline ~ 1.0, Cr 1.4 - trend Cr #HTN -Continue Furosemide, Metoprolol Succinate, Spironolactone #FEN -No standing fluids -Replete lytes PRN -Cholesterol/Fat controlled diet #PPx -DVT: xarelto Dispo: Admit to Tele Visit type - Emergency Visit Emergency Visit: No - New Patient This patient is new to me today: No - Critical Care Critical Care patient: No ATTENDING PHYSICIAN STATEMENT I saw and evaluated the patient. I reviewed the resident's note and discussed the case with the resident. I agree with the resident's findings and plan as documented. SUBJECTIVE: OBJECTIVE: ASSESSMENT AND PLAN:
[2018-12-23 21:29] LABS: IRON SERUM 11 ug/dL (50-175); TOTAL IRON BINDING CAPACITY 246 ug/dL (250-450)
[2018-12-24] MEDS: LEVOTHYROXINE NA 125 MCG TABLET (FP) PO SCH (06:30)
[2018-12-24 06:57] LABS: BASO % 0.4 % (0-2.0); EOS % 1.6 % (0-4.5); HEMATOCRIT 30.3 % (32.4-45.2); HEMOGLOBIN 9.8 GM/dL (10.7-15.3); MCH 30.1 pg (25.7-33.7); MCHC 32.4 g/dl (32.0-36.0); MEAN PLT VOLUME 10.3 fl (7.5-11.1); MONO % 11.2 % (3.8-10.2); NEUT % 70.8 % (42.8-82.8); PLATELET COUNT 143 K/MM3 (134-434); RBC 3.26 M/mm3 (3.60-5.2); WHITE BLOOD COUNT 11.4 K/mm3 (4.0-10.0)
[2018-12-24 07:12] LABS: BLOOD UREA NITROGEN 15.1 mg/dL (7-18); CALCIUM 8.4 mg/dL (8.5-10.1); CREATININE 1.2 mg/dL (0.55-1.3); MAGNESIUM 2.4 mg/dL (1.8-2.4); PHOSPHOROUS 2.8 mg/dL (2.5-4.9); POTASSIUM 3.6 mmol/L (3.5-5.1)
[2018-12-24] MEDS ORDERED: PT OWN MED DRAWER 7, Y5N ONE ×2 (09:13→10:21)
[2018-12-24] MEDS ORDERED: CEFEPIME HCL 1 GM VIAL (RESTRICTED TO ID) ONE ×2 (09:14→20:25)
[2018-12-24] MEDS ORDERED: DEXTROSE 5%-WATER - 50 ML IVPB ONE ×2 (09:14→20:26)
[2018-12-24] MEDS: FUROSEMIDE 40 MG/4 ML INJECTABLE VIAL IVPUSH SCH (09:31)
[2018-12-24] MEDS: CEFEPIME 1 GM in DEXTROSE 5%-WATER - 50 ML IVPB SCH ×2 (09:32→21:04)
--- NOTE | 2018-12-24 09:34 | PN ---
Progress Note, Physician Chief Complaint: Pt AxOx3; in bed; feels btter (legs are more comfortable, though wants a cream she uses at home for them); no palptations, dyspnea, or chest pain. 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 The patient states that she has had a gradual onset of shortness of breath for the past few days. Patients daughter reports that the patient has had tremors, 101.3 fever this morning, and left leg swelling, redness, and weeping from her wounds. Daughter also notes a recent diagnosis of bronchitis. Patient denies chest pain. Denies nausea, vomiting, abdominal pain. Denies dizziness, headache, focal weakness/numbness. Allergies: penicillins - Current Medication List Current Medications: Active Medications Acetaminophen (Tylenol -) 650 mg PO Q6H PRN PRN Reason: Fever Or Pain Last Admin: 12/23/18 17:40 Dose: 650 mg Diltiazem HCl (Cardizem Injection -) 10 mg IVPUSH Q4H PRN PRN Reason: TACHYCARDIA Last Admin: 12/21/18 16:36 Dose: 10 mg Furosemide (Lasix Injection -) 40 mg IVPUSH DAILY [facility] Last Admin: 12/24/18 09:31 Dose: 40 mg Cefepime HCl 1 gm/ Dextrose 50 mls @ 100 mls/hr IVPB BID ALYSSA; Protocol Last Admin: 12/24/18 09:32 Dose: 100 mls/hr Vancomycin HCl 1,250 mg/ (Dextrose) 250 mls @ 250 mls/2 hr IVPB Q24H ALYSSA; Protocol Last Admin: 12/23/18 12:52 Dose: 250 mls/2 hr Lactic Acid (Lac-Hydrin 12) 1 applic TP DAILY [facility] Last Admin: 12/23/18 12:52 Dose: 1 applic Levothyroxine Sodium (Synthroid -) 125 mcg PO DAILY@0700 [facility] Last Admin: 12/24/18 06:30 Dose: 125 mcg Metoprolol Succinate (Toprol Xl -) 100 mg PO DAILY [facility] Last Admin: 12/24/18 09:31 Dose: 100 mg Rivaroxaban (Xarelto) 20 mg PO DAILY@1730 [facility] Last Admin: 12/23/18 17:41 Dose: 20 mg Spironolactone (Aldactone -) 25 mg PO MOWEFR [facility] Last Admin: 12/22/18 15:43 Dose: 25 mg - Objective Vital Signs: Vital Signs Temperature 98.7 F 12/24/18 06:00 Pulse Rate 95 H 12/24/18 06:00 Respiratory Rate 20 12/24/18 06:00 Blood Pressure 127/70 12/24/18 06:00 O2 Sat by Pulse Oximetry (%) 98 12/24/18 00:44 Constitutional: Yes: No Distress, Obese Eyes: Yes: WNL HENT: Yes: WNL Cardiovascular: Yes: S1 (varies in intensity), S2 Labs: CBC, BMP 12/24/18 05:50 12/24/18 05:50 INR, PTT INR 1.34 (0.83-1.09) H 12/21/18 12:00 Problem List - Problems (1) Morbid obesity Code(s): E66.01 - MORBID (SEVERE) OBESITY DUE TO EXCESS CALORIES (2) Afib Assessment/Plan: EKG: AF with controlled VR Telelmetry: AF, generally controlled VR. Continue metoprolol ER for HR control (has diltiazem IVP as prn backup). On DOAC for anticoagulation. ECHO: normal LVEF; abnormal diastolic compliacne; borderline dilated LA. Weight loss would be of benefit for overall health, as well as specifically aid to lessening CHF and AF episodes. Code(s): I48.91 - UNSPECIFIED ATRIAL FIBRILLATION Qualifiers: Atrial fibrillation type: other persistent Qualified Code(s): I48.19 - Other persistent atrial fibrillation (3) Cellulitis Code(s): L03.90 - CELLULITIS, UNSPECIFIED Qualifiers: Site of cellulitis: extremity Site of cellulitis of extremity: lower extremity Laterality: left Qualified Code(s): L03.116 - Cellulitis of left lower limb (4) HTN (hypertension) Code(s): I10 - ESSENTIAL (PRIMARY) HYPERTENSION Qualifiers: Hypertension type: essential hypertension Qualified Code(s): I10 - Essential (primary) hypertension (5) Hypothyroid Code(s): E03.9 - HYPOTHYROIDISM, UNSPECIFIED Qualifiers: Hypothyroidism type: unspecified Qualified Code(s): E03.9 - Hypothyroidism , unspecified (6) Sepsis Assessment/Plan: Continue antibiotics per ID. Code(s): A41.9 - SEPSIS, UNSPECIFIED ORGANISM Qualifiers: Sepsis type: sepsis due to unspecified organism Sepsis acute organ dysfunction status: without acute organ dysfunction Qualified Code(s): A41.9 - Sepsis, unspecified organism
[2018-12-24] MEDS: AMMONIUM LACTATE 12% LOTION 225 GM BOTTLE TP SCH (10:22)
[2018-12-24] MEDS: POTASSIUM CHLORIDE ORAL LIQUID 20 MEQ/15 ML PO SCH ×2 (10:22→21:04)
[2018-12-24] MEDS: VANCOMYCIN HCL 1,250 MG in DEXTROSE 5%-WATER - 250 ML IVPB SCH (11:06)
[2018-12-24 11:14] LABS: EPI CELLS 7.4 /HPF (0-5/HPF); HYALINE CASTS 11 /lpf (0-8); URINE APPEARANCE TURBID; URINE BACTERIA 1.4 /hpf (NEGATIVE); URINE BILIRUBIN NEGATIVE (NEGATIVE); URINE COLOR DK YELLOW; URINE GLUCOSE (UA) NEGATIVE (NEGATIVE); URINE KETONE TRACE (NEGATIVE); URINE LEUK ESTERASE NEGATIVE (NEGATIVE); URINE NITRITE NEGATIVE (NEGATIVE); URINE PROTEIN 2+ (NEGATIVE); URINE RBC 3 /hpf (0-4); URINE UROBILINOGEN 0.2 mg/dL (0.2-1.0); URINE WBC 1 /hpf (0-5)
--- NOTE | 2018-12-24 11:34 | PN ---
Progress Note, Physician History of Present Illness: 73 yr old woman with PMH of diastolic CHF, anemia, Afib (s/p 2 ablations, currently on xarelto), hypothyroid, PVD and CAD, chronic venous stasis, chronic lower extremity wounds who presents to the ER with SOB, subjective fevers, worsening left leg swelling, redness, and weeping from her wounds. She denies chest pain, palpitations, near or true syncope, orthopnea, PND. - Current Medication List Current Medications: Active Medications Acetaminophen (Tylenol -) 650 mg PO Q6H PRN PRN Reason: Fever Or Pain Last Admin: 12/23/18 17:40 Dose: 650 mg Diltiazem HCl (Cardizem Injection -) 10 mg IVPUSH Q4H PRN PRN Reason: TACHYCARDIA Last Admin: 12/21/18 16:36 Dose: 10 mg Furosemide (Lasix Injection -) 40 mg IVPUSH DAILY [facility] Last Admin: 12/24/18 09:31 Dose: 40 mg Cefepime HCl 1 gm/ Dextrose 50 mls @ 100 mls/hr IVPB BID [facility]; Protocol Last Admin: 12/24/18 09:32 Dose: 100 mls/hr Vancomycin HCl 1,250 mg/ (Dextrose) 250 mls @ 250 mls/2 hr IVPB Q24H ALYSSA; Protocol Last Admin: 12/24/18 11:06 Dose: 250 mls/2 hr Lactic Acid (Lac-Hydrin 12) 1 applic TP DAILY [facility] Last Admin: 12/24/18 10:22 Dose: 1 applic Levothyroxine Sodium (Synthroid -) 125 mcg PO DAILY@0700 [facility] Last Admin: 12/24/18 06:30 Dose: 125 mcg Metoprolol Succinate (Toprol Xl -) 100 mg PO DAILY [facility] Last Admin: 12/24/18 09:31 Dose: 100 mg Potassium Chloride (Potassium Chloride Oral Liquid) 20 meq PO BID [facility] Last Admin: 12/24/18 10:22 Dose: 20 meq Rivaroxaban (Xarelto) 20 mg PO DAILY@1730 [facility] Last Admin: 12/23/18 17:41 Dose: 20 mg Spironolactone (Aldactone -) 25 mg PO MOWEFR [facility] Last Admin: 12/22/18 15:43 Dose: 25 mg - Objective Vital Signs: Vital Signs Temperature 98.7 F 12/24/18 06:00 Pulse Rate 95 H 12/24/18 06:00 Respiratory Rate 20 12/24/18 06:00 Blood Pressure 127/70 12/24/18 06:00 O2 Sat by Pulse Oximetry (%) 98 12/24/18 00:44 Eyes: Yes: WNL, Conjunctiva Clear, EOM Intact HENT: Yes: WNL, Atraumatic, Normocephalic Neck: Yes: WNL, Supple, Trachea Midline Cardiovascular: Yes: Pulse Irregular, S1, S2 Respiratory: Yes: WNL, Regular, CTA Bilaterally Gastrointestinal: Yes: WNL, Normal Bowel Sounds Genitourinary: Yes: WNL Musculoskeletal: Yes: WNL Extremities: Yes: WNL Edema: No Integumentary: Yes: WNL Neurological: Yes: WNL, Alert, Oriented ...Motor Strength: WNL Psychiatric: Yes: WNL Labs: CBC, BMP 12/24/18 05:50 12/24/18 05:50 INR, PTT INR 1.34 (0.83-1.09) H 12/21/18 12:00 Assessment/Plan - Results Chest X-ray: Report Reviewed (NAD) Cat Scan: Report Reviewed (11/25/[address]: Possible mild congestion, bibasilar ATX L>R) Problem List - Problems (1) Afib Code(s): I48.91 - UNSPECIFIED ATRIAL FIBRILLATION Qualifiers: Atrial fibrillation type: other persistent Qualified Code(s): I48.19 - Other persistent atrial fibrillation (2) CHF exacerbation Code(s): I50.9 - HEART FAILURE, UNSPECIFIED Qualifiers: Heart failure type: diastolic Qualified Code(s): I50.33 - Acute on chronic diastolic (congestive) heart failure (3) Cellulitis Code(s): L03.90 - CELLULITIS, UNSPECIFIED Qualifiers: Site of cellulitis: extremity Site of cellulitis of extremity: lower extremity Laterality: left Qualified Code(s): L03.116 - Cellulitis of left lower limb (4) HTN (hypertension) Code(s): I10 - ESSENTIAL (PRIMARY) HYPERTENSION Qualifiers: Hypertension type: essential hypertension Qualified Code(s): I10 - Essential (primary) hypertension (5) Hypothyroid Code(s): E03.9 - HYPOTHYROIDISM, UNSPECIFIED Qualifiers: Hypothyroidism type: unspecified Qualified Code(s): E03.9 - Hypothyroidism , unspecified (6) Sepsis Code(s): A41.9 - SEPSIS, UNSPECIFIED ORGANISM Qualifiers: Sepsis type: sepsis due to unspecified organism Sepsis acute organ dysfunction status: without acute organ dysfunction Qualified Code(s): A41.9 - Sepsis, unspecified organism (7) Swelling of lower leg Code(s): M79.89 - OTHER SPECIFIED SOFT TISSUE DISORDERS Assessment/Plan 11/26/2018 Echo: Normal LV size and fxn, mild-mod MR, tr-mild TR - Problems (1) Sepsis Assessment/Plan: On IV antibiotics; f/u C&S, ID evaluation Antipyretics as needed (avoid NSAIDS). Code(s): A41.9 - SEPSIS, UNSPECIFIED ORGANISM Qualifiers: Sepsis type: sepsis due to unspecified organism Sepsis acute organ dysfunction status: without acute organ dysfunction Qualified Code(s): A41.9 - Sepsis, unspecified organism (2) Afib Assessment/Plan: EKG: rapid AF @ 160 Pt says amiodarone dose was lowered over several weeks from 200 mg to 50 mg daily, then stopped completely in 05/2018.Stress MIBI done 2018 reportedly showed no ischemia. She was continued on metoprolol. Plan: continue long-acting metoprolol XL 100 qd with IV Cardizem as needed for rate-control Continue Xarelto 20 qhs for anticoagulation. ECHO: normal LVEF; mild borderline LAE; mild-moderate MR; trace to mild TR. Code(s): I48.91 - UNSPECIFIED ATRIAL FIBRILLATION (3) Cellulitis Assessment/Plan: 11/27/2018 LE doppler negative for DVT bilaterally, abx per ID, compression therapy once cellulitis improved Code(s): L03.90 - CELLULITIS, UNSPECIFIED Qualifiers: Site of cellulitis: extremity Site of cellulitis of extremity: lower extremity Laterality: left Qualified Code(s): L03.116 - Cellulitis of left lower limb (4) HTN (hypertension) Assessment/Plan: IV furosemide and aldactone for CHF with monitor diuretic response, renal fxn and electrolytes Stopped amlodipine.; increased dose of metoprolol (and changed to long-acting) for CHF and HR. Code(s): I10 - ESSENTIAL (PRIMARY) HYPERTENSION (5) Hypothyroid Assessment/Plan: TSH 1.16; on Synthroid. Code(s): E03.9 - HYPOTHYROIDISM, UNSPECIFIED d/c telemetry
[2018-12-24] MEDS: ACETAMINOPHEN 325 MG TABLET (FP) PO PRN (12:26)
--- NOTE | 2018-12-24 12:29 | PN ---
Progress Note, Physician - Current Medication List Current Medications: Active Medications Acetaminophen (Tylenol -) 650 mg PO Q6H PRN PRN Reason: Fever Or Pain Last Admin: 12/24/18 12:26 Dose: 650 mg Diltiazem HCl (Cardizem Injection -) 10 mg IVPUSH Q4H PRN PRN Reason: TACHYCARDIA Last Admin: 12/21/18 16:36 Dose: 10 mg Furosemide (Lasix Injection -) 40 mg IVPUSH DAILY [facility] Last Admin: 12/24/18 09:31 Dose: 40 mg Cefepime HCl 1 gm/ Dextrose 50 mls @ 100 mls/hr IVPB BID [facility]; Protocol Last Admin: 12/24/18 09:32 Dose: 100 mls/hr Vancomycin HCl 1,250 mg/ (Dextrose) 250 mls @ 250 mls/2 hr IVPB Q24H [facility]; Protocol Last Admin: 12/24/18 11:06 Dose: 250 mls/2 hr Lactic Acid (Lac-Hydrin 12) 1 applic TP DAILY [facility] Last Admin: 12/24/18 10:22 Dose: 1 applic Levothyroxine Sodium (Synthroid -) 125 mcg PO DAILY@0700 [facility] Last Admin: 12/24/18 06:30 Dose: 125 mcg Metoprolol Succinate (Toprol Xl -) 100 mg PO DAILY [facility] Last Admin: 12/24/18 09:31 Dose: 100 mg Potassium Chloride (Potassium Chloride Oral Liquid) 20 meq PO BID [facility] Last Admin: 12/24/18 10:22 Dose: 20 meq Rivaroxaban (Xarelto) 20 mg PO DAILY@1730 [facility] Last Admin: 12/23/18 17:41 Dose: 20 mg Spironolactone (Aldactone -) 25 mg PO MOWEFR [facility] Last Admin: 12/22/18 15:43 Dose: 25 mg - Objective Vital Signs: Vital Signs Temperature 98.2 F 12/24/18 10:00 Pulse Rate 130 H 12/24/18 10:00 Respiratory Rate 20 12/24/18 10:00 Blood Pressure 123/76 12/24/18 10:00 O2 Sat by Pulse Oximetry (%) 94 L 12/24/18 09:00 Labs: CBC, BMP 12/24/18 05:50 12/24/18 05:50 INR, PTT INR 1.34 (0.83-1.09) H 12/21/18 12:00
[2018-12-24] MEDS: SPIRONOLACTONE 25 MG TABLET (FP) PO SCH (14:22)
--- NOTE | 2018-12-24 15:24 | PN ---
Teaching Attending Note Name of Resident: Connor Mills ATTENDING PHYSICIAN STATEMENT I saw and evaluated the patient. I reviewed the resident's note and discussed the case with the resident. I agree with the resident's findings and plan as documented. SUBJECTIVE: SOB improved, LLE pain/redness improving. Still having fevers. OBJECTIVE: Ongoing fevers, Tmax 102.3, now 101.1, Hemodynamically Stable Last Vital Signs Temp Pulse Resp BP Pulse Ox 98.9 F 105 H 20 105/60 94 L 12/24/18 14:00 12/24/18 14:00 12/24/18 12:30 12/24/18 14:00 12/24/18 09:00 HEAD: Atraumatic, Normocephalic. HEART: Irregular. LUNGS: Clear to auscultation ABDOMEN: High BMI. Soft, non-tender, non-distended, normal BS EXTREMITIES: LE edema +++, chronic venous stasis changes, L>R. LLE erythema ++. Laboratory Results - last 24 hr 12/23/18 12/23/18 12/24/18 19:50 19:50 00:00 WBC RBC Hgb Hct MCV MCH MCHC RDW Plt Count MPV Absolute Neuts (auto) Neutrophils % Lymphocytes % Monocytes % Eosinophils % Basophils % Nucleated RBC % Sodium Potassium Chloride Carbon Dioxide Anion Gap BUN Creatinine Est GFR (CKD-EPI)AfAm Est GFR (CKD-EPI)NonAf Random Glucose Lactic Acid Calcium Phosphorus Magnesium Iron 11 L TIBC 246 L Iron Saturation 4 L Unsaturated IBC 235 Ferritin Vitamin B12 776 Serum Folate 34 H Urine Color Dk yellow Urine Appearance Turbid Urine pH 6.0 Ur Specific [place] 1.024 Urine Protein 2+ H Urine Glucose (UA) Negative Urine Ketones Trace H Urine Blood Negative Urine Nitrite Negative Urine Bilirubin Negative Urine Urobilinogen 0.2 Ur Leukocyte Esterase Negative Urine WBC (Auto) 1 Urine RBC (Auto) 3 Urine Casts (Auto) 11 U Epithel Cells (Auto) 7.4 Urine Bacteria (Auto) 1.4 12/24/18 12/24/18 12/24/18 05:50 05:50 13:55 WBC 11.4 H RBC 3.26 L Hgb 9.8 L Hct 30.3 L MCV 93.0 MCH 30.1 MCHC 32.4 RDW 17.0 H Plt Count 143 MPV 10.3 Absolute Neuts (auto) 8.1 H Neutrophils % 70.8 Lymphocytes % 16.0 D Monocytes % 11.2 H Eosinophils % 1.6 D Basophils % 0.4 Nucleated RBC % 0 Sodium 139 Potassium 3.6 Chloride 101 Carbon Dioxide 32 Anion Gap 6 L BUN 15.1 Creatinine 1.2 Est GFR (CKD-EPI)AfAm 51.20 Est GFR (CKD-EPI)NonAf 44.17 Random Glucose 97 Lactic Acid 1.3 Calcium 8.4 L Phosphorus 2.8 Magnesium 2.4 Iron 12 L TIBC Iron Saturation Unsaturated IBC Ferritin 197.9 Vitamin B12 Serum Folate Urine Color Urine Appearance Urine pH Ur Specific [place] Urine Protein Urine Glucose (UA) Urine Ketones Urine Blood Urine Nitrite Urine Bilirubin Urine Urobilinogen Ur Leukocyte Esterase Urine WBC (Auto) Urine RBC (Auto) Urine Casts (Auto) U Epithel Cells (Auto) Urine Bacteria (Auto) Current Medications Generic Name Dose Route Start Last Admin Trade Name Freq PRN Reason Stop Dose Admin Acetaminophen 650 mg 12/21/18 16:23 12/24/18 12:26 Tylenol - PO 650 mg Q6H PRN Administration Fever Or Pain Diltiazem HCl 10 mg 12/21/18 14:58 12/21/18 16:36 Cardizem Injection - IVPUSH 10 mg Q4H PRN Administration TACHYCARDIA Furosemide 40 mg 12/23/18 10:00 12/24/18 09:31 Lasix Injection - IVPUSH 40 mg DAILY ALYSSA Administration Cefepime HCl 1 gm/ Dextrose 50 mls @ 100 mls/hr 12/22/18 12:00 12/24/18 09:32 IVPB 100 mls/hr BID ALYSSA Administration Protocol Vancomycin HCl 1,250 mg/ 250 mls @ 250 mls/2 hr 12/22/18 12:00 12/24/18 11:06 Dextrose IVPB 250 mls/2 hr Q24H ALYSSA Administration Protocol Lactic Acid 1 applic 12/23/18 10:45 12/24/18 10:22 Lac-Hydrin 12 TP 1 applic DAILY ALYSSA Administration Levothyroxine Sodium 125 mcg 12/22/18 07:00 12/24/18 06:30 Synthroid - PO 125 mcg DAILY@0700 ALYSSA Administration Metoprolol Succinate 100 mg 12/21/18 14:45 12/24/18 09:31 Toprol Xl - PO 100 mg DAILY ALYSSA Administration Potassium Chloride 20 meq 10/23/19 10:00 12/24/18 10:22 Potassium Chloride Oral Liquid PO 20 meq BID ALYSSA Administration Rivaroxaban 20 mg 12/21/18 17:30 12/23/18 17:41 Xarelto PO 20 mg DAILY@1730 [facility] Administration Spironolactone 25 mg 12/22/18 14:32 12/24/18 14:22 Aldactone - PO 25 mg MOWEFR ALYSSA Administration Home Medications Medication Instructions Recorded Levothyroxine Sodium [Synthroid] 125 mcg PO DAILY 04/10/17 Rivaroxaban [Xarelto -] 20 mg PO HS 04/10/17 Albuterol Sulfate Inhaler - 1 - 2 inh PO Q6H PRN #1 inhaler 11/28/18 [Ventolin HFA Inhaler -] Doxycycline Hyclate 100 mg PO BID #7 tablet 11/28/18 Furosemide [Lasix] 20 mg PO DAILY #30 tablet 11/28/18 Metoprolol Succinate [Toprol XL -] 100 mg PO DAILY #30 tab.sr.24h 11/28/18 Prednisone See Taper PO DAILY #42 tablet 11/28/18 Spironolactone [Aldactone] 25 mg PO MOWEFR #20 tablet 11/28/18 Amiodarone HCl 200 mg PO DAILY 12/22/18 Amlodipine Besylate 10 mg PO DAILY 12/22/18 Furosemide 80 mg PO BID 12/22/18 Levothyroxine [Synthroid -] 112 mcg PO DAILY 12/22/18 Metformin HCl [Glucophage] 500 mg PO AM 12/22/18 ASSESSMENT AND PLAN: 73 year old female with a history of CAD, HTN, Hypothyroidism, Atrial Fibrillation s/p Ablation x 2, chronic diastolic heart failure, anemia, hypothyroidism, PAD, chronic venous stasis, chronic leg wounds who presented to the ED with SOB, fever, worsening left leg swelling, redness, and weeping. 1. Severe sepsis secondary to LLE cellulitis and UTI - Afebrile, hemodynamically Stable. UCx pos for EColi. Blood Cx neg. Spiking fevers on Cefepime, Vancomycin. ID to guide further Abx therapy. 2. Atrial Fibrillation with RVR - rate controlled. Continue Toprol XL, Xarelto 3. Acute Hypoxic Respiratory Failure secondary to acute on chronic diastolic heart failure - improving - Continue IV Lasix, Aldactone 4. CAD - Continue Toprol XL 5. HTN - Continue Toprol XL, Lasix, Aldactone 6. Hypothyroidism - Continue Synthroid. TSH 3.41 7. Anemia, Iron deficiency. Iron Sat 4%, B12 726, Folate 34. No evidence of acute blood loss. Further Ix as out-patient. FOBT requested. Fe supplementation for now. 8. PAD - on Xarelto 9. Chronic venous stasis/Lympedema - continue wound care/vascular Sx/Aldactone/ Lasix. DVT Px - on Xarelto
[2018-12-24] MEDS ORDERED: DOCUSATE SODIUM 100 MG CAPSULE (FP) PO PRN (15:29)
--- NOTE | 2018-12-24 17:03 | PN ---
Physical Exam: SUBJECTIVE: Patient seen and examined O/N: had fever 102.8F. No major tele events Endorses improvement in fever, thinks LLE is warm still. No SOB, palpitations, chest pain OBJECTIVE: Vital Signs Period Temp Pulse Resp BP Sys/Ray Pulse Ox Last 24 Hr 98.2 F-102.8 F 84-130 20-20 105-135/50-96 94-98 GENERAL: The patient is awake, alert, no acute distress. HEAD: Normal with no signs of trauma. EYES: sclera anicteric, conjunctiva clear. ENT: nares patent, moist mucous membranes. NECK: Trachea midline, full range of motion, supple. LUNGS: no crackles to b/l lung bases, no accessory muscle use. Breathing RA HEART: Regular rate and rhythm, S1, S2 without murmur, rub or gallop. ABDOMEN: Soft, nontender, no guarding, no rebound, no masses EXTREMITIES: 1+ pulses, warm, well-perfused. 2+ pitting edema to BLE. Redness, warmth to LLE NEUROLOGICAL: Normal speech, gait not observed. Laboratory Results - last 24 hr 12/23/18 12/23/18 12/24/18 19:50 19:50 00:00 WBC RBC Hgb Hct MCV MCH MCHC RDW Plt Count MPV Absolute Neuts (auto) Neutrophils % Lymphocytes % Monocytes % Eosinophils % Basophils % Nucleated RBC % Sodium Potassium Chloride Carbon Dioxide Anion Gap BUN Creatinine Est GFR (CKD-EPI)AfAm Est GFR (CKD-EPI)NonAf Random Glucose Lactic Acid Calcium Phosphorus Magnesium Iron 11 L TIBC 246 L Iron Saturation 4 L Unsaturated IBC 235 Ferritin Vitamin B12 776 Serum Folate 34 H Urine Color Dk yellow Urine Appearance Turbid Urine pH 6.0 Ur Specific [place] 1.024 Urine Protein 2+ H Urine Glucose (UA) Negative Urine Ketones Trace H Urine Blood Negative Urine Nitrite Negative Urine Bilirubin Negative Urine Urobilinogen 0.2 Ur Leukocyte Esterase Negative Urine WBC (Auto) 1 Urine RBC (Auto) 3 Urine Casts (Auto) 11 U Epithel Cells (Auto) 7.4 Urine Bacteria (Auto) 1.4 12/24/18 12/24/18 12/24/18 05:50 05:50 13:55 WBC 11.4 H RBC 3.26 L Hgb 9.8 L Hct 30.3 L MCV 93.0 MCH 30.1 MCHC 32.4 RDW 17.0 H Plt Count 143 MPV 10.3 Absolute Neuts (auto) 8.1 H Neutrophils % 70.8 Lymphocytes % 16.0 D Monocytes % 11.2 H Eosinophils % 1.6 D Basophils % 0.4 Nucleated RBC % 0 Sodium 139 Potassium 3.6 Chloride 101 Carbon Dioxide 32 Anion Gap 6 L BUN 15.1 Creatinine 1.2 Est GFR (CKD-EPI)AfAm 51.20 Est GFR (CKD-EPI)NonAf 44.17 Random Glucose 97 Lactic Acid 1.3 Calcium 8.4 L Phosphorus 2.8 Magnesium 2.4 Iron 12 L TIBC Iron Saturation Unsaturated IBC Ferritin 197.9 Vitamin B12 Serum Folate Urine Color Urine Appearance Urine pH Ur Specific [place] Urine Protein Urine Glucose (UA) Urine Ketones Urine Blood Urine Nitrite Urine Bilirubin Urine Urobilinogen Ur Leukocyte Esterase Urine WBC (Auto) Urine RBC (Auto) Urine Casts (Auto) U Epithel Cells (Auto) Urine Bacteria (Auto) Active Medications Generic Name Dose Route Start Last Admin Trade Name Sheldonq PRN Reason Stop Dose Admin Acetaminophen 650 mg 12/21/18 16:23 12/24/18 12:26 Tylenol - PO 650 mg Q6H PRN Administration Fever Or Pain Diltiazem HCl 10 mg 12/21/18 14:58 12/21/18 16:36 Cardizem Injection - IVPUSH 10 mg Q4H PRN Administration TACHYCARDIA Docusate Sodium 100 mg 12/24/18 15:29 Colace - PO BID PRN CONSTIPATION Ferrous Sulfate 325 mg 12/25/18 10:00 Feosol - PO BID ALYSSA Furosemide 40 mg 12/23/18 10:00 12/24/18 09:31 Lasix Injection - IVPUSH 40 mg DAILY ALYSSA Administration Cefepime HCl 1 gm/ Dextrose 50 mls @ 100 mls/hr 12/22/18 12:00 12/24/18 09:32 IVPB 100 mls/hr BID ALYSSA Administration Protocol Vancomycin HCl 1,250 mg/ 250 mls @ 250 mls/2 hr 12/22/18 12:00 12/24/18 11:06 Dextrose IVPB 250 mls/2 hr Q24H ALYSSA Administration Protocol Lactic Acid 1 applic 12/23/18 10:45 12/24/18 10:22 Lac-Hydrin 12 TP 1 applic DAILY ALYSSA Administration Levothyroxine Sodium 125 mcg 12/22/18 07:00 12/24/18 06:30 Synthroid - PO 125 mcg DAILY@0700 ALYSSA Administration Metoprolol Succinate 100 mg 12/21/18 14:45 12/24/18 09:31 Toprol Xl - PO 100 mg DAILY ALYSSA Administration Potassium Chloride 20 meq 12/24/18 10:00 12/24/18 10:22 Potassium Chloride Oral Liquid PO 20 meq BID ALYSSA Administration Rivaroxaban 20 mg 12/21/18 17:30 12/23/18 17:41 Xarelto PO 20 mg DAILY@1730 ALYSSA Administration Spironolactone 25 mg 12/22/18 14:32 12/24/18 14:22 Aldactone - PO 25 mg MOWEFR ALYSSA Administration ASSESSMENT/PLAN: 73 y/o F with PMHx of HFpEF (Echo 11/20), CAD (Cath 2 years ago, No Stents), AFib (on Xarelto), Anemia, who recently discharged from [facility] in November 2018 ( treated for AFib with RVR) presents with SOB. #Sepsis 2/2 LLE cellulitis > lactic acid 2.8->1.6 > fever 102.8F on 12/23/18 - fu CXR, UA, UCX, BCX > UA: neg LE, neg nitrite, WBC 1 > CXR: marked cardiomegaly -Donna Holder (ABx course Started on 12/21) --dc'd -ID Consulted --cw abx --cefepime + vancomycin --day 3 #normocytic anemia > Hgb 12.4->10.3-->9.9 > MCV 93-94 - ferritin sat ~4% - ferrous sulfate 325 BID #chronic BLE venous congestion -wound/vascular consult: --Elevate the lower extremity above the level of the heart at all times while at rest --Bilateral compression with bernie wraps once cellulitis has receded (wrap from metacarpal heads to below knee) --Apply Lac hydrin daily (for dry scaly skin) --Compression therapy discussed with pt at length, reports she will obtain some after discharge and see if they help --Pt may f/u with Dr Ramirez in the office within the next few weeks for reflux study #Acute CHF exacerbation --possibly 2/2 AFib with RVR > CXR(12/21/18): cardiomegaly, mildly prominen central hilar vessels > TSH ~3.41 > BNP ~2260 -s/p IV Furosemide 20mg x1 in ED; Continue with 40mg IV BID -cw home Spironolactone 25mg M// -Monitor Daily weights, I&Os, Cr #AFib with RVR > EKG: rate 160s > EKG(12/23/18): rate 90s > Recent Echo (11/20) reveals Preserved EF > TSH 3.4 - cardio consult: --metoprolol XL 100mg, Cardizem 10mg PRN --xarelto 20mg QD #hypothryoidism - levothryoxine 125mcg QD #GEMMA, 2/2 heart failure > baseline ~ 1.0, Cr 1.4 - trend Cr #HTN -Continue Furosemide, Metoprolol Succinate, Spironolactone #FEN -No standing fluids -Replete lytes PRN -diabetic/fat controlled diet #PPx -DVT: xarelto Dispo: transf from Tele to MedSur Visit type - Emergency Visit Emergency Visit: No - New Patient This patient is new to me today: No - Critical Care Critical Care patient: No ATTENDING PHYSICIAN STATEMENT I saw and evaluated the patient. I reviewed the resident's note and discussed the case with the resident. I agree with the resident's findings and plan as documented. SUBJECTIVE: OBJECTIVE: ASSESSMENT AND PLAN:
[2018-12-24] MEDS: RIVAROXABAN 20 MG TABLET PO SCH (17:36)
[2018-12-25] MEDS: ACETAMINOPHEN 325 MG TABLET (FP) PO PRN ×3 (03:09→21:34)
[2018-12-25] MEDS: LEVOTHYROXINE NA 125 MCG TABLET (FP) PO SCH (06:00)
[2018-12-25 07:04] LABS: HEMATOCRIT 29.6 % (32.4-45.2); HEMOGLOBIN 9.7 GM/dL (10.7-15.3); MCH 30.7 pg (25.7-33.7); MCHC 32.9 g/dl (32.0-36.0); MEAN CELL VOLUME 93.3 fl (80-96); MEAN PLT VOLUME 10.1 fl (7.5-11.1); PLATELET COUNT 179 K/MM3 (134-434); RBC 3.17 M/mm3 (3.60-5.2); RDW 16.7 % (11.6-15.6); WHITE BLOOD COUNT 9.9 K/mm3 (4.0-10.0)
[2018-12-25 07:54] LABS: BLOOD UREA NITROGEN 16.5 mg/dL (7-18); CALCIUM 8.6 mg/dL (8.5-10.1); CREATININE 1.2 mg/dL (0.55-1.3); MAGNESIUM 2.4 mg/dL (1.8-2.4); PHOSPHOROUS 2.8 mg/dL (2.5-4.9); POTASSIUM 3.9 mmol/L (3.5-5.1)
[2018-12-25] MEDS ORDERED: DEXTROSE 5%-WATER - 50 ML IVPB ONE (08:45)
[2018-12-25] MEDS ORDERED: CEFEPIME HCL 1 GM VIAL (RESTRICTED TO ID) ONE (08:45)
[2018-12-25] MEDS: FERROUS SO4 325 MG TABLET (FP) PO SCH ×2 (09:17→21:33)
[2018-12-25] MEDS: CEFEPIME 1 GM in DEXTROSE 5%-WATER - 50 ML IVPB SCH (09:17)
[2018-12-25] MEDS: FUROSEMIDE 40 MG/4 ML INJECTABLE VIAL IVPUSH SCH (09:17)
[2018-12-25] MEDS: POTASSIUM CHLORIDE ORAL LIQUID 20 MEQ/15 ML PO SCH ×2 (09:17→21:33)
[2018-12-25] MEDS: AMMONIUM LACTATE 12% LOTION 225 GM BOTTLE TP SCH (09:18)
--- NOTE | 2018-12-25 12:09 | PN ---
Progress Note, Physician History of Present Illness: patient stable improving still spiking a fever,low grade - Current Medication List Current Medications: Active Medications Acetaminophen (Tylenol -) 650 mg PO Q6H PRN PRN Reason: Fever Or Pain Last Admin: 12/25/18 03:09 Dose: 650 mg Chlorhexidine Gluconate (Hibiclens For Decolonization -) 1 applic TP HS@2100 ALYSSA Diltiazem HCl (Cardizem Injection -) 10 mg IVPUSH Q4H PRN PRN Reason: TACHYCARDIA Last Admin: 12/21/18 16:36 Dose: 10 mg Docusate Sodium (Colace -) 100 mg PO BID PRN PRN Reason: CONSTIPATION Ferrous Sulfate (Feosol -) 325 mg PO BID [facility] Last Admin: 12/25/18 09:17 Dose: 325 mg Furosemide (Lasix Injection -) 40 mg IVPUSH DAILY [facility] Last Admin: 12/25/18 09:17 Dose: 40 mg Cefepime HCl 1 gm/ Dextrose 50 mls @ 100 mls/hr IVPB BID [facility]; Protocol Last Admin: 12/25/18 09:17 Dose: 100 mls/hr Vancomycin HCl 1,250 mg/ (Dextrose) 250 mls @ 250 mls/2 hr IVPB Q24H ALYSSA; Protocol Last Admin: 12/24/18 11:06 Dose: 250 mls/2 hr Lactic Acid (Lac-Hydrin 12) 1 applic TP DAILY [facility] Last Admin: 12/25/18 09:18 Dose: 1 applic Levothyroxine Sodium (Synthroid -) 125 mcg PO DAILY@0700 [facility] Last Admin: 12/25/18 06:00 Dose: 125 mcg Metoprolol Succinate (Toprol Xl -) 100 mg PO DAILY [facility] Last Admin: 12/25/18 09:17 Dose: 100 mg Potassium Chloride (Potassium Chloride Oral Liquid) 20 meq PO BID [facility] Last Admin: 12/25/18 09:17 Dose: 20 meq Rivaroxaban (Xarelto) 20 mg PO DAILY@1730 [facility] Last Admin: 12/24/18 17:36 Dose: 20 mg Spironolactone (Aldactone -) 25 mg PO MOWEFR [facility] Last Admin: 12/24/18 14:22 Dose: 25 mg - Objective Vital Signs: Vital Signs Temperature 98.4 F 12/25/18 05:00 Pulse Rate 97 H 12/25/18 07:53 Respiratory Rate 20 12/25/18 05:00 Blood Pressure 133/87 12/25/18 05:00 O2 Sat by Pulse Oximetry (%) 96 12/25/18 07:53 Constitutional: Yes: No Distress, Calm Cardiovascular: Yes: S1, S2 Respiratory: Yes: Regular, CTA Bilaterally Gastrointestinal: Yes: Normal Bowel Sounds, Soft Musculoskeletal: Yes: WNL Extremities: Yes: Other Neurological: Yes: Alert, Oriented Psychiatric: Yes: Alert, Oriented Labs: CBC, BMP 12/25/18 05:45 12/25/18 05:45 INR, PTT INR 1.34 (0.83-1.09) H 12/21/18 12:00 Assessment/Plan Problem List - Problems (1) Afib Code(s): I48.91 - UNSPECIFIED ATRIAL FIBRILLATION Qualifiers: Atrial fibrillation type: other persistent Qualified Code(s): I48.19 - Other persistent atrial fibrillation (2) CHF exacerbation Code(s): I50.9 - HEART FAILURE, UNSPECIFIED Qualifiers: Heart failure type: diastolic Qualified Code(s): I50.33 - Acute on chronic diastolic (congestive) heart failure (3) Cellulitis Code(s): L03.90 - CELLULITIS, UNSPECIFIED Qualifiers: Site of cellulitis: extremity Site of cellulitis of extremity: lower extremity Laterality: left Qualified Code(s): L03.116 - Cellulitis of left lower limb (4) HTN (hypertension) Code(s): I10 - ESSENTIAL (PRIMARY) HYPERTENSION Qualifiers: Hypertension type: essential hypertension Qualified Code(s): I10 - Essential (primary) hypertension (5) Hypothyroid Code(s): E03.9 - HYPOTHYROIDISM, UNSPECIFIED Qualifiers: Hypothyroidism type: unspecified Qualified Code(s): E03.9 - Hypothyroidism , unspecified (6) Sepsis Code(s): A41.9 - SEPSIS, UNSPECIFIED ORGANISM Qualifiers: Sepsis type: sepsis due to unspecified organism Sepsis acute organ dysfunction status: without acute organ dysfunction Qualified Code(s): A41.9 - Sepsis, unspecified organism (7) Swelling of lower leg Code(s): M79.89 - OTHER SPECIFIED SOFT TISSUE DISORDERS 8 cellulitis of the left lower leg plan continue abx will stop vanco monitor the leg rest as per the team
--- NOTE | 2018-12-25 13:19 | PN ---
Physical Exam: SUBJECTIVE: Patient seen and examined OBJECTIVE: Vital Signs Period Temp Pulse Resp BP Sys/Ray Pulse Ox Last 24 Hr 98.4 F-100.7 F 93-119 20-20 103-133/50-87 96-96 GENERAL: The patient is awake, alert, no acute distress. HEAD: Normal with no signs of trauma. EYES: sclera anicteric, conjunctiva clear. ENT: nares patent, moist mucous membranes. NECK: Trachea midline, full range of motion, supple. LUNGS: no crackles to b/l lung bases, mild expir wheezes of lung bases b/l, no accessory muscle use. Breathing RA HEART: Regular rate and rhythm, S1, S2 without murmur, rub or gallop. ABDOMEN: Soft, nontender, no guarding, no rebound, no masses EXTREMITIES: 1+ pulses, warm, well-perfused. 2+ pitting edema to BLE. Redness, warmth to LLE. Subcentimeter anterior open distal lower leg wound with scant serous drainage NEUROLOGICAL: Normal speech, gait not observed. Laboratory Results - last 24 hr 12/24/18 12/25/18 12/25/18 13:55 05:45 05:45 WBC 9.9 RBC 3.17 L Hgb 9.7 L Hct 29.6 L MCV 93.3 MCH 30.7 MCHC 32.9 RDW 16.7 H Plt Count 179 D MPV 10.1 Sodium 139 Potassium 3.9 Chloride 103 Carbon Dioxide 30 Anion Gap 7 L BUN 16.5 Creatinine 1.2 Est GFR (CKD-EPI)AfAm 51.20 Est GFR (CKD-EPI)NonAf 44.17 Random Glucose 91 Lactic Acid 1.3 Calcium 8.6 Phosphorus 2.8 Magnesium 2.4 Vancomycin Pre-Dose 12/25/18 11:48 WBC RBC Hgb Hct MCV MCH MCHC RDW Plt Count MPV Sodium Potassium Chloride Carbon Dioxide Anion Gap BUN Creatinine Est GFR (CKD-EPI)AfAm Est GFR (CKD-EPI)NonAf Random Glucose Lactic Acid Calcium Phosphorus Magnesium Vancomycin Pre-Dose 10.0 L Active Medications Generic Name Dose Route Start Last Admin Trade Name Freq PRN Reason Stop Dose Admin Acetaminophen 650 mg 12/21/18 16:23 12/25/18 03:09 Tylenol - PO 650 mg Q6H PRN Administration Fever Or Pain Chlorhexidine Gluconate 1 applic 12/25/18 21:00 Hibiclens For Decolonization - TP HS@2100 ALYSSA Diltiazem HCl 10 mg 12/21/18 14:58 12/21/18 16:36 Cardizem Injection - IVPUSH 10 mg Q4H PRN Administration TACHYCARDIA Docusate Sodium 100 mg 12/24/18 15:29 Colace - PO BID PRN CONSTIPATION Ferrous Sulfate 325 mg 12/25/18 10:00 12/25/18 09:17 Feosol - PO 325 mg BID ALYSSA Administration Furosemide 40 mg 12/23/18 10:00 12/25/18 09:17 Lasix Injection - IVPUSH 40 mg DAILY ALYSSA Administration Cefepime HCl 1 gm/ Dextrose 50 mls @ 100 mls/hr 12/22/18 12:00 12/25/18 09:17 IVPB 100 mls/hr BID ALYSSA Administration Protocol Lactic Acid 1 applic 12/23/18 10:45 12/25/18 09:18 Lac-Hydrin 12 TP 1 applic DAILY ALYSAS Administration Levothyroxine Sodium 125 mcg 12/22/18 07:00 12/25/18 06:00 Synthroid - PO 125 mcg DAILY@0700 ALYSSA Administration Metoprolol Succinate 100 mg 12/21/18 14:45 12/25/18 09:17 Toprol Xl - PO 100 mg DAILY ALYSSA Administration Potassium Chloride 20 meq 12/24/18 10:00 12/25/18 09:17 Potassium Chloride Oral Liquid PO 20 meq BID ALYSSA Administration Rivaroxaban 20 mg 12/21/18 17:30 12/24/18 17:36 Xarelto PO 20 mg DAILY@1730 ALYSSA Administration Spironolactone 25 mg 12/22/18 14:32 12/24/18 14:22 Aldactone - PO 25 mg MOWEFR ALYSSA Administration ASSESSMENT/PLAN: 73 y/o F with PMHx of HFpEF (Echo 11/20), CAD (Cath 2 years ago, No Stents), AFib (on Xarelto), Anemia, who recently discharged from [facility] in November 2018 ( treated for AFib with RVR) presents with SOB. #Sepsis 2/2 LLE cellulitis > lactic acid 2.8->1.6 > UCX: E coli(page-sensitive) > fever 102.8F on 12/23/18 - fu CXR, UA, UCX, BCX > UA: neg LE, neg nitrite, WBC 1 > CXR: marked cardiomegaly - Donna Holder (ABx course Started on 12/21) --dc'd -[Vanco]: 10 -ID Consulted --cw abx --cefepime + vancomycin --day 4, vancomycin dc'd on day 4 #normocytic anemia > Hgb 12.4->10.3-->9.9 > MCV 93-94 - ferritin sat ~4% - ferrous sulfate 325 BID + colace #chronic BLE venous congestion -wound/vascular consult: --Elevate the lower extremity above the level of the heart at all times while at rest --Bilateral compression with bernie wraps once cellulitis has receded (wrap from metacarpal heads to below knee) --Apply Lac hydrin daily (for dry scaly skin) --Compression therapy discussed with pt at length, reports she will obtain some after discharge and see if they help --Pt may f/u with Dr Ramirez in the office within the next few weeks for reflux study #Acute CHF exacerbation --possibly 2/2 AFib with RVR > CXR(12/21/18): cardiomegaly, mildly prominen central hilar vessels > TSH ~3.41 > BNP ~2260 > weight 120kg -->116.4kg -s/p IV Furosemide 20mg x1 in ED; Continue with 40mg IV BID -cw home Spironolactone 25mg // -Monitor Daily weights, I&Os, Cr #AFib with RVR > EKG: rate 160s > EKG(12/23/18): rate 90s > Recent Echo (11/20) reveals Preserved EF > TSH 3.4 - cardio consult: --metoprolol XL 100mg, Cardizem 10mg PRN --xarelto 20mg QD #hypothryoidism - levothryoxine 125mcg QD #GEMMA, 2/2 heart failure > baseline ~ 1.0, Cr 1.2 - trend Cr #HTN -Continue Furosemide, Metoprolol Succinate, Spironolactone #FEN -No standing fluids -Replete lytes PRN -diabetic/fat controlled diet #PPx -DVT: xarelto Dispo: transf from Tele to MedSurg Visit type - Emergency Visit Emergency Visit: No - New Patient This patient is new to me today: No - Critical Care Critical Care patient: No ATTENDING PHYSICIAN STATEMENT I saw and evaluated the patient. I reviewed the resident's note and discussed the case with the resident. I agree with the resident's findings and plan as documented. SUBJECTIVE: OBJECTIVE: ASSESSMENT AND PLAN:
[2018-12-25] MEDS ORDERED: VANCOMYCIN HCL 1,500 MG in DEXTROSE 5%-WATER - 500 ML IV SCH (14:00)
--- NOTE | 2018-12-25 14:07 | PN ---
Teaching Attending Note Name of Resident: Connor Mills ATTENDING PHYSICIAN STATEMENT I saw and evaluated the patient. I reviewed the resident's note and discussed the case with the resident. I agree with the resident's findings and plan as documented. SUBJECTIVE: SOB improved, LLE pain/redness persistent. Ongoing fevers. OBJECTIVE: Ongoing fevers, Tmax 101.7, HR 118, RR 24. Hemodynamically Stable Last Vital Signs Temp Pulse Resp BP Pulse Ox 101.7 F H 118 H 24 H 133/87 96 12/25/18 13:34 12/25/18 13:34 12/25/18 13:34 12/25/18 05:00 12/25/18 07:53 HEART: Tachy, irreglar LUNGS: Clear to auscultation ABDOMEN: High BMI. Soft, non-tender, non-distended, normal BS EXTREMITIES: LE edema +++, chronic venous stasis changes, L>R. LLE erythema ++. Laboratory Results - last 24 hr 12/24/18 12/25/18 12/25/18 13:55 05:45 05:45 WBC 9.9 RBC 3.17 L Hgb 9.7 L Hct 29.6 L MCV 93.3 MCH 30.7 MCHC 32.9 RDW 16.7 H Plt Count 179 D MPV 10.1 Sodium 139 Potassium 3.9 Chloride 103 Carbon Dioxide 30 Anion Gap 7 L BUN 16.5 Creatinine 1.2 Est GFR (CKD-EPI)AfAm 51.20 Est GFR (CKD-EPI)NonAf 44.17 Random Glucose 91 Lactic Acid 1.3 Calcium 8.6 Phosphorus 2.8 Magnesium 2.4 Vancomycin Pre-Dose 12/25/18 11:48 WBC RBC Hgb Hct MCV MCH MCHC RDW Plt Count MPV Sodium Potassium Chloride Carbon Dioxide Anion Gap BUN Creatinine Est GFR (CKD-EPI)AfAm Est GFR (CKD-EPI)NonAf Random Glucose Lactic Acid Calcium Phosphorus Magnesium Vancomycin Pre-Dose 10.0 L Current Medications Generic Name Dose Route Start Last Admin Trade Name Freq PRN Reason Stop Dose Admin Acetaminophen 650 mg 12/21/18 16:23 12/25/18 13:46 Tylenol - PO 650 mg Q6H PRN Administration Fever Or Pain Chlorhexidine Gluconate 1 applic 12/25/18 21:00 Hibiclens For Decolonization - TP HS@2100 ALYSSA Diltiazem HCl 10 mg 12/21/18 14:58 12/21/18 16:36 Cardizem Injection - IVPUSH 10 mg Q4H PRN Administration TACHYCARDIA Docusate Sodium 100 mg 12/24/18 15:29 Colace - PO BID PRN CONSTIPATION Ferrous Sulfate 325 mg 12/25/18 10:00 12/25/18 09:17 Feosol - PO 325 mg BID ALYSSA Administration Furosemide 40 mg 12/23/18 10:00 12/25/18 09:17 Lasix Injection - IVPUSH 40 mg DAILY ALYSSA Administration Meropenem 1 gm/ Dextrose 100 mls @ 200 mls/hr 12/25/18 14:00 IVPB 12/25/18 14:29 ONCE ONE Lactic Acid 1 applic 12/23/18 10:45 12/25/18 09:18 Lac-Hydrin 12 TP 1 applic DAILY [facility] Administration Levothyroxine Sodium 125 mcg 12/22/18 07:00 12/25/18 06:00 Synthroid - PO 125 mcg DAILY@0700 ALYSSA Administration Metoprolol Succinate 100 mg 12/21/18 14:45 12/25/18 09:17 Toprol Xl - PO 100 mg DAILY [facility] Administration Potassium Chloride 20 meq 12/24/18 10:00 12/25/18 09:17 Potassium Chloride Oral Liquid PO 20 meq BID [facility] Administration Rivaroxaban 20 mg 12/21/18 17:30 12/24/18 17:36 Xarelto PO 20 mg DAILY@1730 [facility] Administration Spironolactone 25 mg 12/22/18 14:32 12/24/18 14:22 Aldactone - PO 25 mg MOWEFR ALYSSA Administration Home Medications Medication Instructions Recorded Levothyroxine Sodium [Synthroid] 125 mcg PO DAILY 04/10/17 Rivaroxaban [Xarelto -] 20 mg PO HS 04/10/17 Albuterol Sulfate Inhaler - 1 - 2 inh PO Q6H PRN #1 inhaler 11/28/18 [Ventolin HFA Inhaler -] Doxycycline Hyclate 100 mg PO BID #7 tablet 11/28/18 Furosemide [Lasix] 20 mg PO DAILY #30 tablet 11/28/18 Metoprolol Succinate [Toprol XL -] 100 mg PO DAILY #30 tab.sr.24h 11/28/18 Prednisone See Taper PO DAILY #42 tablet 11/28/18 Spironolactone [Aldactone] 25 mg PO MOWEFR #20 tablet 11/28/18 Amiodarone HCl 200 mg PO DAILY 12/22/18 Amlodipine Besylate 10 mg PO DAILY 12/22/18 Furosemide 80 mg PO BID 12/22/18 Levothyroxine [Synthroid -] 112 mcg PO DAILY 12/22/18 Metformin HCl [Glucophage] 500 mg PO AM 12/22/18 ASSESSMENT AND PLAN: 73 year old female with a history of CAD, HTN, Hypothyroidism, Atrial Fibrillation s/p Ablation x 2, chronic diastolic heart failure, anemia, hypothyroidism, PAD, chronic venous stasis, chronic leg wounds, who presented to the ED with SOB, fever, worsening left leg swelling, redness, and weeping. 1. Severe sepsis secondary to LLE cellulitis and UTI - Still Febrile ++ . UCx pos for EColi. Blood Cx neg. Spiking fevers on Cefepime, Vancomycin. Will discontinue current Abx and start Meropenem. CT LLE requested to exclude underlying abscess. 2. Atrial Fibrillation with RVR - rate controlled. Continue Toprol XL, Xarelto 3. Acute Hypoxic Respiratory Failure secondary to acute on chronic diastolic heart failure - improving . Continue IV Lasix, Aldactone 4. CAD - Continue Toprol XL 5. HTN - Continue Toprol XL, Lasix, Aldactone 6. Hypothyroidism - Continue Synthroid. TSH 3.41 7. Anemia, Iron deficiency. Iron Sat 4%, B12 726, Folate 34. No evidence of acute blood loss. Further Ix as out-patient. Fe supplementation for now. 8. PAD - on Xarelto 9. Chronic venous stasis/Lympedema - continue Wound care/Vascular Sx/Aldactone/ Lasix. DVT Px - on Xarelto
[2018-12-25] MEDS ORDERED: MEROPENEM 1 GM in DEXTROSE 5%-WATER 100 ML IVPB ONE (14:30)
[2018-12-25] MEDS ORDERED: DEXTROSE 5%-WATER 100 ML IVPB ONE (15:18)
[2018-12-25] MEDS ORDERED: MEROPENEM 1 GM VIAL (RESTRICTED TO ID) IVPB ONE (15:18)
--- NOTE | 2018-12-25 16:14 | PN ---
Progress Note, Physician Chief Complaint: Pt AxOx3; in bed; feels "sad" that her leg leg is not healing as fast as she wished. No chest pain or dypsnea. 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 The patient states that she has had a gradual onset of shortness of breath for the past few days. Patients daughter reports that the patient has had tremors, 101.3 fever this morning, and left leg swelling, redness, and weeping from her wounds. Daughter also notes a recent diagnosis of bronchitis. Patient denies chest pain. Denies nausea, vomiting, abdominal pain. Denies dizziness, headache, focal weakness/numbness. Allergies: penicillins - Current Medication List Current Medications: Active Medications Acetaminophen (Tylenol -) 650 mg PO Q6H PRN PRN Reason: Fever Or Pain Last Admin: 12/25/18 13:46 Dose: 650 mg Chlorhexidine Gluconate (Hibiclens For Decolonization -) 1 applic TP HS@2100 [facility] Diltiazem HCl (Cardizem Injection -) 10 mg IVPUSH Q4H PRN PRN Reason: TACHYCARDIA Last Admin: 12/21/18 16:36 Dose: 10 mg Docusate Sodium (Colace -) 100 mg PO BID PRN PRN Reason: CONSTIPATION Ferrous Sulfate (Feosol -) 325 mg PO BID [facility] Last Admin: 12/25/18 09:17 Dose: 325 mg Furosemide (Lasix Injection -) 40 mg IVPUSH DAILY [facility] Last Admin: 12/25/18 09:17 Dose: 40 mg Lactic Acid (Lac-Hydrin 12) 1 applic TP DAILY [facility] Last Admin: 12/25/18 09:18 Dose: 1 applic Levothyroxine Sodium (Synthroid -) 125 mcg PO DAILY@0700 [facility] Last Admin: 12/25/18 06:00 Dose: 125 mcg Metoprolol Succinate (Toprol Xl -) 100 mg PO DAILY [facility] Last Admin: 12/25/18 09:17 Dose: 100 mg Potassium Chloride (Potassium Chloride Oral Liquid) 20 meq PO BID [facility] Last Admin: 12/25/18 09:17 Dose: 20 meq Rivaroxaban (Xarelto) 20 mg PO DAILY@1730 [facility] Last Admin: 12/24/18 17:36 Dose: 20 mg Spironolactone (Aldactone -) 25 mg PO MOWEFR [facility] Last Admin: 12/24/18 14:22 Dose: 25 mg - Objective Vital Signs: Vital Signs Temperature 101.7 F H 12/25/18 13:34 Pulse Rate 118 H 12/25/18 13:34 Respiratory Rate 24 H 12/25/18 13:34 Blood Pressure 124/78 12/25/18 10:00 O2 Sat by Pulse Oximetry (%) 95 12/25/18 09:00 Constitutional: Yes: Anxious, Obese Eyes: Yes: WNL HENT: Yes: WNL Neck: Yes: WNL Cardiovascular: Yes: S1, S2, S4 Respiratory: Yes: Regular Gastrointestinal: Yes: Soft, Abdomen, Obese ...Rectal Exam: Yes: Deferred Genitourinary: No: Anuria Breast(s): Yes: WNL Musculoskeletal: Yes: Joint Stiffness, Muscle Weakness Extremities: Yes: Cool Edema: Yes Edema: LLE: 2+, RLE: 2+ Peripheral Pulses WNL: Yes Integumentary: Yes: Venous Stasis Changes, Other Wound/Incision: Yes: Open to air (LLE small wound) Neurological: Yes: Alert, Oriented, Weakness Psychiatric: Yes: Other (anxiety/depression) Labs: CBC, BMP 12/25/18 05:45 12/25/18 05:45 INR, PTT INR 1.34 (0.83-1.09) H 12/21/18 12:00 Abnormal Lab Results 12/25/18 12/26/18 11:48 06:15 WBC 10.5 H RBC 3.25 L Hgb 9.9 L Hct 30.1 L RDW 16.5 H Vancomycin Pre-Dose 10.0 L - ....Imaging Chest X-ray: Image Reviewed Cat Scan: Image Reviewed EKG: Image Reviewed Problem List - Problems (1) Morbid obesity Code(s): E66.01 - MORBID (SEVERE) OBESITY DUE TO EXCESS CALORIES (2) Afib Assessment/Plan: EKG: AF with controlled VR Telemetry: AF with controlled VR. Continue metoprolol ER for HR control (has diltiazem IVP as prn backup). On DOAC for anticoagulation. ECHO: normal LVEF; abnormal diastolic compliacne; borderline dilated LA. Weight loss would be of benefit for overall health, as well as specifically aid to lessening CHF and AF episodes. Code(s): I48.91 - UNSPECIFIED ATRIAL FIBRILLATION Qualifiers: Atrial fibrillation type: other persistent Qualified Code(s): I48.19 - Other persistent atrial fibrillation (3) Cellulitis Assessment/Plan: On antibiotics per ID. (Pt believes "fleas" from her cats were the cause of her leg probelmes, begtinning 4 years ago). Code(s): L03.90 - CELLULITIS, UNSPECIFIED Qualifiers: Site of cellulitis: extremity Site of cellulitis of extremity: lower extremity Laterality: left Qualified Code(s): L03.116 - Cellulitis of left lower limb (4) HTN (hypertension) Code(s): I10 - ESSENTIAL (PRIMARY) HYPERTENSION Qualifiers: Hypertension type: essential hypertension Qualified Code(s): I10 - Essential (primary) hypertension (5) Hypothyroid Code(s): E03.9 - HYPOTHYROIDISM, UNSPECIFIED Qualifiers: Hypothyroidism type: unspecified Qualified Code(s): E03.9 - Hypothyroidism , unspecified (6) Sepsis Code(s): A41.9 - SEPSIS, UNSPECIFIED ORGANISM Qualifiers: Sepsis type: sepsis due to unspecified organism Sepsis acute organ dysfunction status: without acute organ dysfunction Qualified Code(s): A41.9 - Sepsis, unspecified organism
[2018-12-25] MEDS: RIVAROXABAN 20 MG TABLET PO SCH (18:24)
[2018-12-25] MEDS: CHLORHEXIDINE GLUCONATE 4% CLEANSER FOR DECOLONIZATION TP SCH (21:35)
[2018-12-26] MEDS: LEVOTHYROXINE NA 125 MCG TABLET (FP) PO SCH (06:41)
[2018-12-26] MEDS: ACETAMINOPHEN 325 MG TABLET (FP) PO PRN ×2 (06:41→19:48)
[2018-12-26 06:44] LABS: HEMATOCRIT 30.1 % (32.4-45.2); HEMOGLOBIN 9.9 GM/dL (10.7-15.3); MCH 30.4 pg (25.7-33.7); MCHC 32.8 g/dl (32.0-36.0); MEAN CELL VOLUME 92.6 fl (80-96); MEAN PLT VOLUME 9.2 fl (7.5-11.1); PLATELET COUNT 213 K/MM3 (134-434); RBC 3.25 M/mm3 (3.60-5.2); RDW 16.5 % (11.6-15.6); WHITE BLOOD COUNT 10.5 K/mm3 (4.0-10.0)
[2018-12-26] MEDS ORDERED: dilTIAZem HCL 50 MG/10 ML - 10 ML VIAL IVPUSH PRN (07:06)
[2018-12-26] MEDS ORDERED: DOCUSATE SODIUM 100 MG CAPSULE (FP) PO PRN (07:06)
--- NOTE | 2018-12-26 08:17 | PN ---
Progress Note, Physician History of Present Illness: 73 yr old woman with PMH of diastolic CHF, anemia, Afib (s/p 2 ablations, currently on xarelto), hypothyroid, PVD and CAD, chronic venous stasis, chronic lower extremity wounds who presents to the ER with SOB, subjective fevers, worsening left leg swelling, redness, and weeping from her wounds. She denies chest pain, palpitations, near or true syncope, orthopnea, PND. - Current Medication List Current Medications: Active Medications Acetaminophen (Tylenol -) 650 mg PO Q6H PRN PRN Reason: Fever Or Pain Chlorhexidine Gluconate (Hibiclens For Decolonization -) 1 applic TP HS@2100 [facility] Last Admin: 12/25/18 21:35 Dose: 1 applic Diltiazem HCl (Cardizem Injection -) 10 mg IVPUSH Q4H PRN PRN Reason: TACHYCARDIA Docusate Sodium (Colace -) 100 mg PO BID PRN PRN Reason: CONSTIPATION Ferrous Sulfate (Feosol -) 325 mg PO BID ALYSSA Furosemide (Lasix Injection -) 40 mg IVPUSH DAILY ALYSSA Lactic Acid (Lac-Hydrin 12) 1 applic TP DAILY ALYSSA Levothyroxine Sodium (Synthroid -) 125 mcg PO DAILY@0700 [facility] Metoprolol Succinate (Toprol Xl -) 100 mg PO DAILY ALYSSA Potassium Chloride (Potassium Chloride Oral Liquid) 20 meq PO BID ALYSSA Rivaroxaban (Xarelto) 20 mg PO DAILY@1800 ALYSSA Spironolactone (Aldactone -) 25 mg PO MOWEFR [facility] - Objective Vital Signs: Vital Signs Temperature 99.4 F 12/26/18 06:00 Pulse Rate 109 H 12/26/18 06:00 Respiratory Rate 20 12/26/18 06:00 Blood Pressure 140/72 12/26/18 06:00 O2 Sat by Pulse Oximetry (%) 97 12/26/18 08:13 Eyes: Yes: WNL, Conjunctiva Clear, EOM Intact HENT: Yes: WNL, Atraumatic, Normocephalic Neck: Yes: WNL, Supple, Trachea Midline Cardiovascular: Yes: Pulse Irregular Respiratory: Yes: WNL, Regular, CTA Bilaterally Gastrointestinal: Yes: WNL, Normal Bowel Sounds Genitourinary: Yes: WNL Musculoskeletal: Yes: WNL Extremities: Yes: Erythema Edema: Yes Integumentary: Yes: WNL Neurological: Yes: WNL, Alert, Oriented ...Motor Strength: WNL Psychiatric: Yes: WNL Labs: CBC, BMP 12/26/18 06:15 INR, PTT INR 1.34 (0.83-1.09) H 12/21/18 12:00 Assessment/Plan - Problems (1) Morbid obesity Code(s): E66.01 - MORBID (SEVERE) OBESITY DUE TO EXCESS CALORIES (2) Afib Assessment/Plan: EKG: AF with controlled VR Telelmetry: AF with controlled VR. Continue metoprolol ER for HR control (has diltiazem IVP as prn backup). On DOAC for anticoagulation. ECHO: normal LVEF; abnormal diastolic compliacne; borderline dilated LA. Weight loss would be of benefit for overall health, as well as specifically aid to lessening CHF and AF episodes. Code(s): I48.91 - UNSPECIFIED ATRIAL FIBRILLATION Qualifiers: Atrial fibrillation type: other persistent Qualified Code(s): I48.19 - Other persistent atrial fibrillation (3) Cellulitis Assessment/Plan: On antibiotics per ID. (Pt believes "fleas" from her cats were the cause of her leg probelmes, begtinning 4 years ago). Code(s): L03.90 - CELLULITIS, UNSPECIFIED Qualifiers: Site of cellulitis: extremity Site of cellulitis of extremity: lower extremity Laterality: left Qualified Code(s): L03.116 - Cellulitis of left lower limb (4) HTN (hypertension) Code(s): I10 - ESSENTIAL (PRIMARY) HYPERTENSION Qualifiers: Hypertension type: essential hypertension Qualified Code(s): I10 - Essential (primary) hypertension (5) Hypothyroid Code(s): E03.9 - HYPOTHYROIDISM, UNSPECIFIED Qualifiers: Hypothyroidism type: unspecified Qualified Code(s): E03.9 - Hypothyroidism , unspecified (6) Sepsis Code(s): A41.9 - SEPSIS, UNSPECIFIED ORGANISM Qualifiers: Sepsis type: sepsis due to unspecified organism Sepsis acute organ dysfunction status: without acute organ dysfunction Qualified Code(s): A41.9 - Sepsis, unspecified organism d/c telemetry
[2018-12-26] MEDS: SPIRONOLACTONE 25 MG TABLET (FP) PO SCH (08:48)
[2018-12-26 09:09] LABS: BLOOD UREA NITROGEN 16.1 mg/dL (7-18); CREATININE 1.1 mg/dL (0.55-1.3); MAGNESIUM 2.4 mg/dL (1.8-2.4); PHOSPHOROUS 3.3 mg/dL (2.5-4.9); POTASSIUM 4.2 mmol/L (3.5-5.1)
[2018-12-26] MEDS: FERROUS SO4 325 MG TABLET (FP) PO SCH ×2 (09:38→21:58)
[2018-12-26] MEDS: AMMONIUM LACTATE 12% LOTION 225 GM BOTTLE TP SCH (09:38)
[2018-12-26] MEDS: FUROSEMIDE 40 MG/4 ML INJECTABLE VIAL IVPUSH SCH (09:38)
[2018-12-26] MEDS: POTASSIUM CHLORIDE ORAL LIQUID 20 MEQ/15 ML PO SCH ×2 (09:39→21:58)
--- NOTE | 2018-12-26 13:32 | PN ---
Teaching Attending Note Name of Resident: Connor Mills ATTENDING PHYSICIAN STATEMENT I saw and evaluated the patient. I reviewed the resident's note and discussed the case with the resident. I agree with the resident's findings and plan as documented. SUBJECTIVE: SOB improved, LLE pain/redness persistent. Ongoing fevers. OBJECTIVE: Ongoing fevers, Tmax 101.4. Hemodynamically Stable Last Vital Signs Temp Pulse Resp BP Pulse Ox 98.6 F 103 H 18 114/56 L 98 12/26/18 10:00 12/26/18 10:00 12/26/18 10:00 12/26/18 10:00 12/26/18 09:00 HEART: Irreglar LUNGS: Clear to auscultation ABDOMEN: High BMI. Soft, non-tender, non-distended, normal BS EXTREMITIES: LE edema +++, chronic venous stasis changes, L>R. LLE erythema ++. Laboratory Results - last 24 hr 12/26/18 12/26/18 06:15 06:15 WBC 10.5 H RBC 3.25 L Hgb 9.9 L Hct 30.1 L MCV 92.6 MCH 30.4 MCHC 32.8 RDW 16.5 H Plt Count 213 MPV 9.2 Sodium 139 Potassium 4.2 Chloride 101 Carbon Dioxide 30 Anion Gap 9 BUN 16.1 Creatinine 1.1 Est GFR (CKD-EPI)AfAm 56.87 Est GFR (CKD-EPI)NonAf 49.07 Random Glucose 93 Calcium 9.0 Phosphorus 3.3 Magnesium 2.4 Current Medications Generic Name Dose Route Start Last Admin Trade Name Freq PRN Reason Stop Dose Admin Acetaminophen 650 mg 12/26/18 07:06 Tylenol - PO Q6H PRN Fever Or Pain Chlorhexidine Gluconate 1 applic 12/25/18 21:00 12/25/18 21:35 Hibiclens For Decolonization - TP 1 applic HS@2100 ALYSSA Administration Diltiazem HCl 10 mg 12/26/18 07:06 Cardizem Injection - IVPUSH Q4H PRN TACHYCARDIA Docusate Sodium 100 mg 12/26/18 07:06 Colace - PO BID PRN CONSTIPATION Ferrous Sulfate 325 mg 12/26/18 10:00 12/26/18 09:38 Feosol - PO 325 mg BID ALYSSA Administration Furosemide 40 mg 12/26/18 10:00 12/26/18 09:38 Lasix Injection - IVPUSH 40 mg DAILY [facility] Administration Lactic Acid 1 applic 12/26/18 10:00 12/26/18 09:38 Lac-Hydrin 12 TP 1 applic DAILY ALYSSA Administration Levothyroxine Sodium 125 mcg 12/27/18 07:00 Synthroid - PO DAILY@0700 [facility] Metoprolol Succinate 100 mg 12/26/18 10:00 12/26/18 09:37 Toprol Xl - PO 100 mg DAILY ALYSSA Administration Potassium Chloride 20 meq 12/26/18 10:00 12/26/18 09:39 Potassium Chloride Oral Liquid PO 20 meq BID ALYSSA Administration Rivaroxaban 20 mg 12/26/18 18:00 Xarelto PO DAILY@1800 ALYSSA Spironolactone 25 mg 12/26/18 07:06 12/26/18 08:48 Aldactone - PO 25 mg MOWEFR ALYSSA Administration Home Medications Medication Instructions Recorded Levothyroxine Sodium [Synthroid] 125 mcg PO DAILY 04/10/17 Rivaroxaban [Xarelto -] 20 mg PO HS 04/10/17 Albuterol Sulfate Inhaler - 1 - 2 inh PO Q6H PRN #1 inhaler 11/28/18 [Ventolin HFA Inhaler -] Doxycycline Hyclate 100 mg PO BID #7 tablet 11/28/18 Furosemide [Lasix] 20 mg PO DAILY #30 tablet 11/28/18 Metoprolol Succinate [Toprol XL -] 100 mg PO DAILY #30 tab.sr.24h 11/28/18 Prednisone See Taper PO DAILY #42 tablet 11/28/18 Spironolactone [Aldactone] 25 mg PO MOWEFR #20 tablet 11/28/18 Amiodarone HCl 200 mg PO DAILY 12/22/18 Amlodipine Besylate 10 mg PO DAILY 12/22/18 Furosemide 80 mg PO BID 12/22/18 Levothyroxine [Synthroid -] 112 mcg PO DAILY 12/22/18 Metformin HCl [Glucophage] 500 mg PO AM 12/22/18 ASSESSMENT AND PLAN: 73 year old female with a history of CAD, HTN, Hypothyroidism, Atrial Fibrillation s/p Ablation x 2, chronic diastolic heart failure, anemia, hypothyroidism, PAD, chronic venous stasis, chronic leg wounds, who presented to the ED with SOB, fever, worsening left leg swelling, redness, and weeping. 1. Severe sepsis secondary to LLE cellulitis and UTI - Still Febrile +. UCx pos for EColi. Blood Cx neg x 4. Was still spiking fevers on Cefepime, Vancomycin - changed to IV Meropenem on consultation with ID. CT LLE requested to exclude underlying abscess - no collection, soft tissue edema consistent with cellulitis. Repeat Blood Cx x 2 pending. Further Abx management as per ID 2. Atrial Fibrillation with RVR - rate controlled. Continue Toprol XL, Xarelto 3. Acute Hypoxic Respiratory Failure secondary to acute on chronic diastolic heart failure - improving . Continue IV Lasix (will increase dose to 40mg IV BID ), Aldactone. Monitor renal function. 4. CAD - Continue Toprol XL 5. HTN - Continue Toprol XL, Lasix, Aldactone 6. Hypothyroidism - Continue Synthroid. TSH 3.41 7. Anemia, Iron deficiency. Iron Sat 4%, B12 726, Folate 34. No evidence of acute blood loss. Further Ix as out-patient. Fe supplementation for now. 8. PAD - on Xarelto 9. Chronic venous stasis/Lympedema - continue Wound care/Vascular Sx/Aldactone/ Lasix. DVT Px - on Xarelto
[2018-12-26] MEDS ORDERED: FUROSEMIDE 40 MG/4 ML INJECTABLE VIAL IVPUSH ONE ×2 (13:49→14:00)
--- NOTE | 2018-12-26 14:28 | PN ---
Progress Note, Physician History of Present Illness: patient continues to spike fever wbc marginally high vanco level noted - Current Medication List Current Medications: Active Medications Acetaminophen (Tylenol -) 650 mg PO Q6H PRN PRN Reason: Fever Or Pain Chlorhexidine Gluconate (Hibiclens For Decolonization -) 1 applic TP HS@2100 [facility] Last Admin: 12/25/18 21:35 Dose: 1 applic Diltiazem HCl (Cardizem Injection -) 10 mg IVPUSH Q4H PRN PRN Reason: TACHYCARDIA Docusate Sodium (Colace -) 100 mg PO BID PRN PRN Reason: CONSTIPATION Ferrous Sulfate (Feosol -) 325 mg PO BID [facility] Last Admin: 12/26/18 09:38 Dose: 325 mg Furosemide (Lasix Injection -) 40 mg IVPUSH DAILY [facility] Last Admin: 12/26/18 09:38 Dose: 40 mg Lactic Acid (Lac-Hydrin 12) 1 applic TP DAILY [facility] Last Admin: 12/26/18 09:38 Dose: 1 applic Levothyroxine Sodium (Synthroid -) 125 mcg PO DAILY@0700 [facility] Metoprolol Succinate (Toprol Xl -) 100 mg PO DAILY [facility] Last Admin: 12/26/18 09:37 Dose: 100 mg Potassium Chloride (Potassium Chloride Oral Liquid) 20 meq PO BID [facility] Last Admin: 12/26/18 09:39 Dose: 20 meq Rivaroxaban (Xarelto) 20 mg PO DAILY@1800 [facility] Spironolactone (Aldactone -) 25 mg PO MOWEFR [facility] Last Admin: 12/26/18 08:48 Dose: 25 mg - Objective Vital Signs: Vital Signs Temperature 98.6 F 12/26/18 10:00 Pulse Rate 103 H 12/26/18 10:00 Respiratory Rate 18 12/26/18 10:00 Blood Pressure 114/56 L 12/26/18 10:00 O2 Sat by Pulse Oximetry (%) 98 12/26/18 09:00 Constitutional: Yes: Calm Cardiovascular: Yes: S1, S2 Respiratory: Yes: Regular, CTA Bilaterally Gastrointestinal: Yes: Normal Bowel Sounds, Soft Musculoskeletal: Yes: WNL Extremities: Yes: Other Integumentary: Yes: Erythema, Other (swelling) Neurological: Yes: Alert, Oriented Psychiatric: Yes: Alert Labs: CBC, BMP 12/26/18 06:15 12/26/18 06:15 INR, PTT INR 1.34 (0.83-1.09) H 12/21/18 12:00 Assessment/Plan Problem List - Problems (1) Afib Code(s): I48.91 - UNSPECIFIED ATRIAL FIBRILLATION Qualifiers: Atrial fibrillation type: other persistent Qualified Code(s): I48.19 - Other persistent atrial fibrillation (2) CHF exacerbation Code(s): I50.9 - HEART FAILURE, UNSPECIFIED Qualifiers: Heart failure type: diastolic Qualified Code(s): I50.33 - Acute on chronic diastolic (congestive) heart failure (3) Cellulitis Code(s): L03.90 - CELLULITIS, UNSPECIFIED Qualifiers: Site of cellulitis: extremity Site of cellulitis of extremity: lower extremity Laterality: left Qualified Code(s): L03.116 - Cellulitis of left lower limb (4) HTN (hypertension) Code(s): I10 - ESSENTIAL (PRIMARY) HYPERTENSION Qualifiers: Hypertension type: essential hypertension Qualified Code(s): I10 - Essential (primary) hypertension (5) Hypothyroid Code(s): E03.9 - HYPOTHYROIDISM, UNSPECIFIED Qualifiers: Hypothyroidism type: unspecified Qualified Code(s): E03.9 - Hypothyroidism , unspecified (6) Sepsis Code(s): A41.9 - SEPSIS, UNSPECIFIED ORGANISM Qualifiers: Sepsis type: sepsis due to unspecified organism Sepsis acute organ dysfunction status: without acute organ dysfunction Qualified Code(s): A41.9 - Sepsis, unspecified organism (7) Swelling of lower leg Code(s): M79.89 - OTHER SPECIFIED SOFT TISSUE DISORDERS 8 cellulitis of the left lower leg plan continue meropenam and vanco ct result noted elevation of the leg
[2018-12-26] MEDS ORDERED: MEROPENEM 1 GM VIAL (RESTRICTED TO ID) IVPB ONE (14:40)
[2018-12-26] MEDS ORDERED: DEXTROSE 5%-WATER 100 ML IVPB ONE (14:41)
[2018-12-26] MEDS: MEROPENEM 1 GM in DEXTROSE 5%-WATER 100 ML IVPB SCH ×2 (14:44→17:37)
[2018-12-26] MEDS ORDERED: PT OWN MED DRAWER 7, Y5N ONE (16:28)
[2018-12-26] MEDS: VANCOMYCIN HCL 1,500 MG in DEXTROSE 5%-WATER - 500 ML IVPB SCH (16:30)
--- NOTE | 2018-12-26 16:30 | PN ---
Physical Exam: SUBJECTIVE: Patient seen and examined O/N: fever to 101.4F, CXR, UA, UCX, BCX sent. Tele showing irreg tachy to 100- 110s Endorses improvement of LLE swelling OBJECTIVE: Vital Signs Period Temp Pulse Resp BP Sys/Ray Pulse Ox Last 24 Hr 98.5 F-101.4 F 102-115 18-22 112-158/56-74 97-98 GENERAL: The patient is awake, alert, no acute distress. HEAD: Normal with no signs of trauma. EYES: sclera anicteric, conjunctiva clear. ENT: nares patent, moist mucous membranes. NECK: Trachea midline, full range of motion, supple. LUNGS: no crackles to b/l lung bases, mild expir wheezes of lung bases b/l, no accessory muscle use. Breathing RA HEART: Regular rate and rhythm, S1, S2 without murmur, rub or gallop. ABDOMEN: Soft, nontender, no guarding, no rebound, no masses EXTREMITIES: 1+ pulses, warm, well-perfused. 2+ pitting edema to BLE. Redness, warmth to LLE a few centimeters below knee. Subcentimeter anterior closed distal lower leg wound w/o drainage NEUROLOGICAL: Normal speech, gait not observed. Laboratory Results - last 24 hr 12/26/18 12/26/18 06:15 06:15 WBC 10.5 H RBC 3.25 L Hgb 9.9 L Hct 30.1 L MCV 92.6 MCH 30.4 MCHC 32.8 RDW 16.5 H Plt Count 213 MPV 9.2 Sodium 139 Potassium 4.2 Chloride 101 Carbon Dioxide 30 Anion Gap 9 BUN 16.1 Creatinine 1.1 Est GFR (CKD-EPI)AfAm 56.87 Est GFR (CKD-EPI)NonAf 49.07 Random Glucose 93 Calcium 9.0 Phosphorus 3.3 Magnesium 2.4 Active Medications Generic Name Dose Route Start Last Admin Trade Name Freq PRN Reason Stop Dose Admin Acetaminophen 650 mg 12/26/18 07:06 Tylenol - PO Q6H PRN Fever Or Pain Chlorhexidine Gluconate 1 applic 12/25/18 21:00 12/25/18 21:35 Hibiclens For Decolonization - TP 1 applic HS@2100 ALYSSA Administration Diltiazem HCl 10 mg 12/26/18 07:06 Cardizem Injection - IVPUSH Q4H PRN TACHYCARDIA Docusate Sodium 100 mg 12/26/18 07:06 Colace - PO BID PRN CONSTIPATION Ferrous Sulfate 325 mg 12/26/18 10:00 12/26/18 09:38 Feosol - PO 325 mg BID ALYSSA Administration Furosemide 40 mg 12/26/18 10:00 12/26/18 09:38 Lasix Injection - IVPUSH 40 mg DAILY ALYSSA Administration Meropenem 1 gm/ Dextrose 100 mls @ 200 mls/hr 12/26/18 14:30 12/26/18 14:44 IVPB 200 mls/hr Q8H-IV ALYSSA Administration Vancomycin HCl 1,500 mg/ 500 mls @ 250 mls/hr 12/26/18 14:30 Dextrose IVPB Q24H ALYSSA Protocol Lactic Acid 1 applic 12/26/18 10:00 12/26/18 09:38 Lac-Hydrin 12 TP 1 applic DAILY ALYSSA Administration Levothyroxine Sodium 125 mcg 12/27/18 07:00 Synthroid - PO DAILY@0700 [facility] Metoprolol Succinate 100 mg 12/26/18 10:00 12/26/18 09:37 Toprol Xl - PO 100 mg DAILY ALYSSA Administration Potassium Chloride 20 meq 12/26/18 10:00 12/26/18 09:39 Potassium Chloride Oral Liquid PO 20 meq BID ALYSSA Administration Rivaroxaban 20 mg 12/26/18 18:00 Xarelto PO DAILY@1800 [facility] Spironolactone 25 mg 12/26/18 07:06 12/26/18 08:48 Aldactone - PO 25 mg MOWEFR ALYSSA Administration ASSESSMENT/PLAN: 73 y/o F with PMHx of HFpEF (Echo 11/20), CAD (Cath 2 years ago, No Stents), AFib (on Xarelto), Anemia, who recently discharged from [facility] in November 2018 ( treated for AFib with RVR) presents with SOB. #Sepsis 2/2 LLE cellulitis > lactic acid 2.8->1.6 > UCX: E coli(page-sensitive) > fever 102.8F on 12/23/18 > fever 101.4F on 12/25/18 > CT LLE(12/25/18): LLE cellulitis, no fluid collection noted - fu CXR, UA, UCX, BCX > CXR(12/23/18): marked cardiomegaly > UA(12/24/18): neg LE, neg nitrite, WBC 1 > UCX(12/24/18): NGTD > CXR(12/26/18): cardiomegaly, congestion - Vanco, Zosyn (ABx course Started on 12/21) --dc'd -[Vanco]: 10 -ID Consulted --cw abx --cefepime + vancomycin --vancomycin dc'd on day 4 --meropenem + vancomycin --currently day 6 #normocytic anemia > Hgb 12.4->10.3-->9.9 > MCV 93-94 - ferritin sat ~4% - ferrous sulfate 325 BID + colace #chronic BLE venous congestion -wound/vascular consult: --Elevate the lower extremity above the level of the heart at all times while at rest --Bilateral compression with bernie wraps once cellulitis has receded (wrap from metacarpal heads to below knee) --Apply Lac hydrin daily (for dry scaly skin) --Compression therapy discussed with pt at length, reports she will obtain some after discharge and see if they help --Pt may f/u with Dr Ramirez in the office within the next few weeks for reflux study #Acute CHF exacerbation --possibly 2/2 AFib with RVR > CXR(12/21/18): cardiomegaly, mildly prominen central hilar vessels > TSH ~3.41 > BNP ~2260 > weight 120kg -->112.8kg -s/p IV Furosemide 20mg x1 in ED; Continue with 40mg IV QD -cw home Spironolactone 25mg M// -Monitor Daily weights, I&Os, Cr #AFib with RVR > EKG: rate 160s > EKG(12/23/18): rate 90s > Recent Echo (11/20) reveals Preserved EF > TSH 3.4 - cardio consult: --metoprolol XL 100mg, Cardizem 10mg PRN --xarelto 20mg QD #hypothryoidism - levothryoxine 125mcg QD #GEMMA, 2/2 heart failure > baseline ~ 1.0, Cr 1.2 - trend Cr #HTN -Continue Furosemide, Metoprolol Succinate, Spironolactone #FEN -No standing fluids -Replete lytes PRN -diabetic/fat controlled diet #PPx -DVT: xarelto Dispo: Tele Visit type - Emergency Visit Emergency Visit: No - New Patient This patient is new to me today: No - Critical Care Critical Care patient: No ATTENDING PHYSICIAN STATEMENT I saw and evaluated the patient. I reviewed the resident's note and discussed the case with the resident. I agree with the resident's findings and plan as documented. SUBJECTIVE: OBJECTIVE: ASSESSMENT AND PLAN:
[2018-12-26] MEDS: RIVAROXABAN 20 MG TABLET PO SCH (18:27)
[2018-12-26] MEDS: CHLORHEXIDINE GLUCONATE 4% CLEANSER FOR DECOLONIZATION TP SCH (21:58)
[2018-12-27] MEDS ORDERED: DEXTROSE 5%-WATER 100 ML IVPB ONE ×3 (01:21→17:29)
[2018-12-27] MEDS ORDERED: MEROPENEM 1 GM VIAL (RESTRICTED TO ID) IVPB ONE ×3 (01:21→17:29)
[2018-12-27] MEDS: MEROPENEM 1 GM in DEXTROSE 5%-WATER 100 ML IVPB SCH ×3 (01:24→17:32)
[2018-12-27] MEDS: LEVOTHYROXINE NA 125 MCG TABLET (FP) PO SCH (06:10)
[2018-12-27 07:51] LABS: CREATININE 1.2 mg/dL (0.55-1.3)
[2018-12-27 07:52] LABS: CALCIUM 8.8 mg/dL (8.5-10.1); MAGNESIUM 2.2 mg/dL (1.8-2.4); PHOSPHOROUS 3.6 mg/dL (2.5-4.9); POTASSIUM 4.2 mmol/L (3.5-5.1)
[2018-12-27 08:15] LABS: HEMOGLOBIN 10.2 GM/dL (10.7-15.3); MCH 29.8 pg (25.7-33.7); MEAN CELL VOLUME 93.1 fl (80-96); MEAN PLT VOLUME 9.3 fl (7.5-11.1); PLATELET COUNT 267 K/MM3 (134-434); RBC 3.43 M/mm3 (3.60-5.2); RDW 16.7 % (11.6-15.6)
[2018-12-27] MEDS: FERROUS SO4 325 MG TABLET (FP) PO SCH ×2 (09:56→22:31)
[2018-12-27] MEDS: POTASSIUM CHLORIDE ORAL LIQUID 20 MEQ/15 ML PO SCH ×2 (09:56→22:31)
[2018-12-27] MEDS: ACETAMINOPHEN 325 MG TABLET (FP) PO PRN ×2 (10:54→19:50)
[2018-12-27] MEDS: FUROSEMIDE 40 MG/4 ML INJECTABLE VIAL IVPUSH SCH (10:54)
--- NOTE | 2018-12-27 11:30 | PN ---
Physical Exam: SUBJECTIVE: Patient seen and examined at bedside this morning. Patient reports her legs feels and looks better. Was noted to have T of 100.7F overnight. This morning, patient otherwise reports feeling well and denies any headache, chest pain, SOB, abdominal pain, diarrhea. OBJECTIVE: Vital Signs Temperature 100.3 F H 12/27/18 10:55 Pulse Rate 91 H 12/27/18 09:00 Respiratory Rate 18 12/27/18 09:00 Blood Pressure 118/72 12/27/18 09:00 O2 Sat by Pulse Oximetry (%) 98 12/27/18 09:00 GENERAL: The patient is awake, alert, and fully oriented, in no acute distress. HEAD: Normal with no signs of trauma. EYES: PERRLa, EOMI, sclera anicteric, conjunctiva clear. ENT: dry mucous membranes NECK: Trachea midline, full range of motion, supple. LUNGS: +bibasilar crackles HEART: Irregular, S1, S2 ABDOMEN: Soft, nontender, nondistended, normoactive bowel sounds EXTREMITIES: +2 bilateral pitting edema L>R, BLE chronic venous stasis changes, +erythema of LLE NEUROLOGICAL: Cranial nerves II through XII grossly intact. Normal speech. PSYCH: Normal mood, normal affect. SKIN: Warm, dry, normal turgor, no rashes or lesions noted Laboratory Results - last 24 hr 12/27/18 12/27/18 05:55 05:55 WBC 11.0 H RBC 3.43 L Hgb 10.2 L Hct 32.0 L MCV 93.1 MCH 29.8 MCHC 32.0 RDW 16.7 H Plt Count 267 D MPV 9.3 Sodium 136 Potassium 4.2 Chloride 97 L Carbon Dioxide 31 Anion Gap 8 BUN 16.0 Creatinine 1.2 Est GFR (CKD-EPI)AfAm 51.20 Est GFR (CKD-EPI)NonAf 44.17 Random Glucose 91 Calcium 8.8 Phosphorus 3.6 Magnesium 2.2 Active Medications Generic Name Dose Route Start Last Admin Trade Name Freq PRN Reason Stop Dose Admin Acetaminophen 650 mg 12/26/18 07:06 12/27/18 10:54 Tylenol - PO 650 mg Q6H PRN Administration Fever Or Pain Chlorhexidine Gluconate 1 applic 12/25/18 21:00 12/26/18 21:58 Hibiclens For Decolonization - TP 1 applic HS@2100 ALYSSA Administration Diltiazem HCl 10 mg 12/26/18 07:06 Cardizem Injection - IVPUSH Q4H PRN TACHYCARDIA Docusate Sodium 100 mg 12/26/18 07:06 Colace - PO BID PRN CONSTIPATION Ferrous Sulfate 325 mg 12/26/18 10:00 12/27/18 09:56 Feosol - PO 325 mg BID ALYSSA Administration Furosemide 40 mg 12/26/18 10:00 12/27/18 10:54 Lasix Injection - IVPUSH 40 mg DAILY ALYSSA Administration Furosemide 40 mg 12/27/18 14:00 Lasix Injection - IVPUSH 12/27/18 14:01 ONCE ONE Meropenem 1 gm/ Dextrose 100 mls @ 200 mls/hr 12/26/18 14:30 12/27/18 10:56 IVPB 200 mls/hr Q8H-IV ALYSSA Administration Vancomycin HCl 1,500 mg/ 500 mls @ 250 mls/hr 12/26/18 14:30 12/26/18 16:30 Dextrose IVPB 250 mls/hr Q24H ALYSSA Administration Protocol Lactic Acid 1 applic 12/26/18 10:00 12/26/18 09:38 Lac-Hydrin 12 TP 1 applic DAILY ALYSSA Administration Levothyroxine Sodium 125 mcg 12/27/18 07:00 12/27/18 06:10 Synthroid - PO 125 mcg DAILY@0700 ALYSSA Administration Metoprolol Succinate 100 mg 12/26/18 10:00 12/27/18 09:56 Toprol Xl - PO 100 mg DAILY ALYSSA Administration Potassium Chloride 20 meq 12/26/18 10:00 12/27/18 09:56 Potassium Chloride Oral Liquid PO 20 meq BID ALYSSA Administration Rivaroxaban 20 mg 12/26/18 18:00 12/26/18 18:27 Xarelto PO 20 mg DAILY@1800 ALYSSA Administration Spironolactone 25 mg 12/26/18 07:06 12/26/18 08:48 Aldactone - PO 25 mg MOWEFR ALYSSA Administration ASSESSMENT/PLAN: Patient is a 73 year old female with past medical history of HFpEF, CAD (s/p cath 2 years ago), AFib (on Xarelto), anemia, was admitted due shortness of breath, fever, and worsening left leg swelling. #Severe sepsis 2/2 LLE cellulitis -still with low grade fever at night -CT LLE(12/25/18): LLE cellulitis, no fluid collection noted -UCx positve for E. coli -Blood culture negative x6 -Patient was spiking fevers on Cefepime and Vancomycin, then switched to Meropenem 12/23 -IV vancomycin added again on 12/26 -ID (Dr. Escoto) consulted. #Acute on chronic diastolic CHF -weight continue to trend down -Additional Lasix 40mg given yesterday -Will given another additional dose of Lasix 40mg today -continue with home Spironolactone 25mg // -Monitor Daily weights, I&Os, Cr #Chronic bilateral LE venous stasis/Lymphedema -Wound care (DR. Ramirez) consulted. -keep legs elevated #AFib with RVR -rate controlled -Continue Toprol XL 100mg daily and Xarelto 20 mg daily -Cardizem 10mg IV PRN #Normocytic Anemia -likely 2/2 iron deficiency -continue ferrous sulfate 325 BID + colace #Hypothyroidism -Continue Synthroid 125 mcg daily #HTN -Continue Furosemide, Metoprolol Succinate, Spironolactone #CAD -Continue Metoprolol #FEN -Not on any standing fluids -Electrolytes wnl, routine bmp monitoring -Diabetic/Sodium restricted diet #Prophylaxis -On Xarelto 20mg daily #Disposition -full code -tele Visit type - Emergency Visit Emergency Visit: Yes ED Registration Date: 12/21/18 Care time: The patient presented to the Emergency Department on the above date and was hospitalized for further evaluation of their emergent condition. - New Patient This patient is new to me today: No - Critical Care Critical Care patient: No ATTENDING PHYSICIAN STATEMENT I saw and evaluated the patient. I reviewed the resident's note and discussed the case with the resident. I agree with the resident's findings and plan as documented. SUBJECTIVE: OBJECTIVE: ASSESSMENT AND PLAN:
--- NOTE | 2018-12-27 11:51 | PN ---
Teaching Attending Note Name of Resident: Kiesha Anand ATTENDING PHYSICIAN STATEMENT I saw and evaluated the patient. I reviewed the resident's note and discussed the case with the resident. I agree with the resident's findings and plan as documented. SUBJECTIVE: SOB improved, LLE pain/redness persistent. Fevers downtrending OBJECTIVE: Ongoing fevers, Tmax 100.6. Hemodynamically Stable Last Vital Signs Temp Pulse Resp BP Pulse Ox 100.3 F H 91 H 18 118/72 98 12/27/18 10:55 12/27/18 09:00 12/27/18 09:00 12/27/18 09:00 12/27/18 09:00 HEART: Irregular LUNGS: Clear to auscultation ABDOMEN: High BMI. Soft, non-tender, non-distended, normal BS EXTREMITIES: LE edema +++, chronic venous stasis changes, L>R. LLE erythema ++. Laboratory Results - last 24 hr 12/27/18 12/27/18 05:55 05:55 WBC 11.0 H RBC 3.43 L Hgb 10.2 L Hct 32.0 L MCV 93.1 MCH 29.8 MCHC 32.0 RDW 16.7 H Plt Count 267 D MPV 9.3 Sodium 136 Potassium 4.2 Chloride 97 L Carbon Dioxide 31 Anion Gap 8 BUN 16.0 Creatinine 1.2 Est GFR (CKD-EPI)AfAm 51.20 Est GFR (CKD-EPI)NonAf 44.17 Random Glucose 91 Calcium 8.8 Phosphorus 3.6 Magnesium 2.2 Current Medications Generic Name Dose Route Start Last Admin Trade Name Freq PRN Reason Stop Dose Admin Acetaminophen 650 mg 12/26/18 07:06 12/27/18 10:54 Tylenol - PO 650 mg Q6H PRN Administration Fever Or Pain Chlorhexidine Gluconate 1 applic 12/25/18 21:00 12/26/18 21:58 Hibiclens For Decolonization - TP 1 applic HS@2100 ALYSSA Administration Diltiazem HCl 10 mg 12/26/18 07:06 Cardizem Injection - IVPUSH Q4H PRN TACHYCARDIA Docusate Sodium 100 mg 12/26/18 07:06 Colace - PO BID PRN CONSTIPATION Ferrous Sulfate 325 mg 12/26/18 10:00 12/27/18 09:56 Feosol - PO 325 mg BID ALYSSA Administration Furosemide 40 mg 12/26/18 10:00 12/27/18 10:54 Lasix Injection - IVPUSH 40 mg DAILY ALYSSA Administration Furosemide 40 mg 12/27/18 14:00 Lasix Injection - IVPUSH 12/27/18 14:01 ONCE ONE Meropenem 1 gm/ Dextrose 100 mls @ 200 mls/hr 12/26/18 14:30 12/27/18 10:56 IVPB 200 mls/hr Q8H-IV ALYSSA Administration Vancomycin HCl 1,500 mg/ 500 mls @ 250 mls/hr 12/26/18 14:30 12/26/18 16:30 Dextrose IVPB 250 mls/hr Q24H ALYSSA Administration Protocol Lactic Acid 1 applic 12/26/18 10:00 12/26/18 09:38 Lac-Hydrin 12 TP 1 applic DAILY ALYSSA Administration Levothyroxine Sodium 125 mcg 12/27/18 07:00 12/27/18 06:10 Synthroid - PO 125 mcg DAILY@0700 ALYSSA Administration Metoprolol Succinate 100 mg 12/26/18 10:00 12/27/18 09:56 Toprol Xl - PO 100 mg DAILY ALYSSA Administration Potassium Chloride 20 meq 12/26/18 10:00 12/27/18 09:56 Potassium Chloride Oral Liquid PO 20 meq BID ALYSSA Administration Rivaroxaban 20 mg 12/26/18 18:00 12/26/18 18:27 Xarelto PO 20 mg DAILY@1800 ALSYSA Administration Spironolactone 25 mg 12/26/18 07:06 12/26/18 08:48 Aldactone - PO 25 mg MOWEFR ALYSSA Administration Home Medications Medication Instructions Recorded Levothyroxine Sodium [Synthroid] 125 mcg PO DAILY 04/10/17 Rivaroxaban [Xarelto -] 20 mg PO HS 04/10/17 Albuterol Sulfate Inhaler - 1 - 2 inh PO Q6H PRN #1 inhaler 11/28/18 [Ventolin HFA Inhaler -] Doxycycline Hyclate 100 mg PO BID #7 tablet 11/28/18 Metoprolol Succinate [Toprol XL -] 100 mg PO DAILY #30 tab.sr.24h 11/28/18 Prednisone See Taper PO DAILY #42 tablet 11/28/18 Spironolactone [Aldactone] 25 mg PO MOWEFR #20 tablet 11/28/18 Amiodarone HCl 200 mg PO DAILY 12/22/18 Amlodipine Besylate 10 mg PO DAILY 12/22/18 Furosemide 80 mg PO TUTHSA 12/22/18 Levothyroxine [Synthroid -] 112 mcg PO DAILY 12/22/18 Metformin HCl [Glucophage] 500 mg PO AM 12/22/18 Furosemide [Lasix -] 40 mg PO MOWEFR 12/26/18 ASSESSMENT AND PLAN: 73 year old female with a history of CAD, HTN, Hypothyroidism, Atrial Fibrillation s/p Ablation x 2, chronic diastolic heart failure, anemia, hypothyroidism, PAD, chronic venous stasis, chronic leg wounds, who presented to the ED with SOB, fever, worsening left leg swelling, redness, and weeping. 1. Severe sepsis secondary to LLE cellulitis and UTI - Still Febrile + ( although fever curve downtrending). UCx pos for EColi. Blood Cx neg x 6. Was still spiking fevers on Cefepime, Vancomycin - changed to IV Meropenem on consultation with ID. Vancomycin added 12/26. CT LLE requested to exclude underlying abscess - no collection, soft tissue edema consistent with cellulitis. Further Abx management as per ID 2. Atrial Fibrillation with RVR - rate controlled. Continue Toprol XL, Xarelto 3. Acute Hypoxic Respiratory Failure secondary to acute on chronic diastolic heart failure - improving . Continue IV Lasix (dosing at 40mg IV BID since 12/26 ), Aldactone. Monitor renal function. 4. CAD - Continue Toprol XL 5. HTN - Continue Toprol XL, Lasix, Aldactone 6. Hypothyroidism - Continue Synthroid. TSH 3.41 7. Anemia, Iron deficiency. Iron Sat 4%, B12 726, Folate 34. No evidence of acute blood loss. Further Ix as out-patient. Fe supplementation for now. 8. PAD - on Xarelto 9. Chronic venous stasis/Lympedema - continue Wound care/Vascular Sx/Aldactone/ Lasix. DVT Px - on Xarelto
[2018-12-27] MEDS ORDERED: PT OWN MED DRAWER 7, Y5N ONE (13:53)
[2018-12-27] MEDS: VANCOMYCIN HCL 1,500 MG in DEXTROSE 5%-WATER - 500 ML IVPB SCH (14:00)
[2018-12-27] MEDS ORDERED: FUROSEMIDE 40 MG/4 ML INJECTABLE VIAL IVPUSH ONE (14:00)
--- NOTE | 2018-12-27 15:28 | PN ---
Progress Note, Physician History of Present Illness: 73 yr old woman with PMH of diastolic CHF, anemia, Afib (s/p 2 ablations, currently on xarelto), hypothyroid, PVD and CAD, chronic venous stasis, chronic lower extremity wounds who presents to the ER with SOB, subjective fevers, worsening left leg swelling, redness, and weeping from her wounds. She denies chest pain, palpitations, near or true syncope, orthopnea, PND. - Current Medication List Current Medications: Active Medications Acetaminophen (Tylenol -) 650 mg PO Q6H PRN PRN Reason: Fever Or Pain Last Admin: 12/27/18 10:54 Dose: 650 mg Chlorhexidine Gluconate (Hibiclens For Decolonization -) 1 applic TP HS@2100 [facility] Last Admin: 12/26/18 21:58 Dose: 1 applic Diltiazem HCl (Cardizem Injection -) 10 mg IVPUSH Q4H PRN PRN Reason: TACHYCARDIA Docusate Sodium (Colace -) 100 mg PO BID PRN PRN Reason: CONSTIPATION Ferrous Sulfate (Feosol -) 325 mg PO BID [facility] Last Admin: 12/27/18 09:56 Dose: 325 mg Furosemide (Lasix Injection -) 40 mg IVPUSH DAILY [facility] Last Admin: 12/27/18 10:54 Dose: 40 mg Meropenem 1 gm/ Dextrose 100 mls @ 200 mls/hr IVPB Q8H-IV ALYSSA Last Admin: 12/27/18 10:56 Dose: 200 mls/hr Vancomycin HCl 1,500 mg/ (Dextrose) 500 mls @ 250 mls/hr IVPB Q24H [facility]; Protocol Last Admin: 12/27/18 14:00 Dose: 250 mls/hr Lactic Acid (Lac-Hydrin 12) 1 applic TP DAILY [facility] Last Admin: 12/26/18 09:38 Dose: 1 applic Levothyroxine Sodium (Synthroid -) 125 mcg PO DAILY@0700 [facility] Last Admin: 12/27/18 06:10 Dose: 125 mcg Metoprolol Succinate (Toprol Xl -) 100 mg PO DAILY [facility] Last Admin: 12/27/18 09:56 Dose: 100 mg Potassium Chloride (Potassium Chloride Oral Liquid) 20 meq PO BID [facility] Last Admin: 12/27/18 09:56 Dose: 20 meq Rivaroxaban (Xarelto) 20 mg PO DAILY@1800 [facility] Last Admin: 12/26/18 18:27 Dose: 20 mg Spironolactone (Aldactone -) 25 mg PO MOWE [facility] Last Admin: 12/26/18 08:48 Dose: 25 mg - Objective Vital Signs: Vital Signs Temperature 98.3 F 12/27/18 14:00 Pulse Rate 81 12/27/18 14:00 Respiratory Rate 18 12/27/18 09:00 Blood Pressure 130/67 12/27/18 14:00 O2 Sat by Pulse Oximetry (%) 98 12/27/18 09:00 Eyes: Yes: WNL, Conjunctiva Clear, EOM Intact HENT: Yes: WNL, Atraumatic, Normocephalic Neck: Yes: WNL, Supple, Trachea Midline Cardiovascular: Yes: Pulse Irregular Respiratory: Yes: WNL, Regular, CTA Bilaterally Gastrointestinal: Yes: WNL, Normal Bowel Sounds Genitourinary: Yes: WNL Musculoskeletal: Yes: WNL Extremities: Yes: WNL Edema: Yes Integumentary: Yes: WNL Neurological: Yes: WNL, Alert, Oriented ...Motor Strength: WNL Psychiatric: Yes: WNL Labs: CBC, BMP 12/27/18 05:55 12/27/18 05:55 INR, PTT INR 1.34 (0.83-1.09) H 12/21/18 12:00 Assessment/Plan - Problems (1) Morbid obesity Code(s): E66.01 - MORBID (SEVERE) OBESITY DUE TO EXCESS CALORIES (2) Afib Assessment/Plan: EKG: AF with controlled VR Telelmetry: AF with controlled VR. Continue metoprolol ER for HR control (has diltiazem IVP as prn backup). On DOAC for anticoagulation. ECHO: normal LVEF; abnormal diastolic compliacne; borderline dilated LA. Weight loss would be of benefit for overall health, as well as specifically aid to lessening CHF and AF episodes. Code(s): I48.91 - UNSPECIFIED ATRIAL FIBRILLATION Qualifiers: Atrial fibrillation type: other persistent Qualified Code(s): I48.19 - Other persistent atrial fibrillation (3) Cellulitis Assessment/Plan: On antibiotics per ID. (Pt believes "fleas" from her cats were the cause of her leg probelmes, begtinning 4 years ago). Code(s): L03.90 - CELLULITIS, UNSPECIFIED Qualifiers: Site of cellulitis: extremity Site of cellulitis of extremity: lower extremity Laterality: left Qualified Code(s): L03.116 - Cellulitis of left lower limb (4) HTN (hypertension) Code(s): I10 - ESSENTIAL (PRIMARY) HYPERTENSION Qualifiers: Hypertension type: essential hypertension Qualified Code(s): I10 - Essential (primary) hypertension (5) Hypothyroid Code(s): E03.9 - HYPOTHYROIDISM, UNSPECIFIED Qualifiers: Hypothyroidism type: unspecified Qualified Code(s): E03.9 - Hypothyroidism , unspecified (6) Sepsis Code(s): A41.9 - SEPSIS, UNSPECIFIED ORGANISM Qualifiers: Sepsis type: sepsis due to unspecified organism Sepsis acute organ dysfunction status: without acute organ dysfunction Qualified Code(s): A41.9 - Sepsis, unspecified organism d/c telemetry
--- NOTE | 2018-12-27 15:35 | PN ---
Progress Note, Physician History of Present Illness: Pt states her LLE is getting slightly less erythematous/swollen. Still with low grade fevers, Tmax 100.6F, afebrile currently. Has no specific complaints. - Current Medication List Current Medications: Active Medications Acetaminophen (Tylenol -) 650 mg PO Q6H PRN PRN Reason: Fever Or Pain Last Admin: 12/27/18 10:54 Dose: 650 mg Chlorhexidine Gluconate (Hibiclens For Decolonization -) 1 applic TP HS@2100 [facility] Last Admin: 12/26/18 21:58 Dose: 1 applic Diltiazem HCl (Cardizem Injection -) 10 mg IVPUSH Q4H PRN PRN Reason: TACHYCARDIA Docusate Sodium (Colace -) 100 mg PO BID PRN PRN Reason: CONSTIPATION Ferrous Sulfate (Feosol -) 325 mg PO BID [facility] Last Admin: 12/27/18 09:56 Dose: 325 mg Furosemide (Lasix Injection -) 40 mg IVPUSH DAILY [facility] Last Admin: 12/27/18 10:54 Dose: 40 mg Meropenem 1 gm/ Dextrose 100 mls @ 200 mls/hr IVPB Q8H-IV ALYSSA Last Admin: 12/27/18 10:56 Dose: 200 mls/hr Vancomycin HCl 1,500 mg/ (Dextrose) 500 mls @ 250 mls/hr IVPB Q24H [facility]; Protocol Last Admin: 12/27/18 14:00 Dose: 250 mls/hr Lactic Acid (Lac-Hydrin 12) 1 applic TP DAILY [facility] Last Admin: 12/26/18 09:38 Dose: 1 applic Levothyroxine Sodium (Synthroid -) 125 mcg PO DAILY@0700 [facility] Last Admin: 12/27/18 06:10 Dose: 125 mcg Metoprolol Succinate (Toprol Xl -) 100 mg PO DAILY [facility] Last Admin: 12/27/18 09:56 Dose: 100 mg Potassium Chloride (Potassium Chloride Oral Liquid) 20 meq PO BID [facility] Last Admin: 12/27/18 09:56 Dose: 20 meq Rivaroxaban (Xarelto) 20 mg PO DAILY@1800 [facility] Last Admin: 12/26/18 18:27 Dose: 20 mg Spironolactone (Aldactone -) 25 mg PO MOWEFR [facility] Last Admin: 12/26/18 08:48 Dose: 25 mg - Objective Vital Signs: Vital Signs Temperature 98.3 F 12/27/18 14:00 Pulse Rate 81 12/27/18 14:00 Respiratory Rate 18 12/27/18 09:00 Blood Pressure 130/67 12/27/18 14:00 O2 Sat by Pulse Oximetry (%) 98 12/27/18 09:00 Constitutional: Yes: No Distress, Calm Cardiovascular: Yes: Regular Rate and Rhythm Respiratory: Yes: Regular Gastrointestinal: Yes: Normal Bowel Sounds, Soft, Abdomen, Obese Genitourinary: Yes: WNL Extremities: Yes: Erythema (LLE ++ edema/erythema/warmth b/l venous stasis changes) Integumentary: Yes: WNL Neurological: Yes: Alert, Oriented Labs: CBC, BMP 12/27/18 05:55 12/27/18 05:55 INR, PTT INR 1.34 (0.83-1.09) H 12/21/18 12:00 Microbiology 12/26/18 09:48 Blood - Peripheral Venous Blood Culture - Preliminary NO GROWTH OBTAINED AFTER 24 HOURS, INCUBATION TO CONTINUE FOR 4 DAYS. 12/26/18 10:00 Blood - Peripheral Venous Blood Culture - Preliminary NO GROWTH OBTAINED AFTER 24 HOURS, INCUBATION TO CONTINUE FOR 4 DAYS. 12/23/18 20:10 Blood - Peripheral Venous Blood Culture - Preliminary NO GROWTH OBTAINED AFTER 72 HOURS, INCUBATION TO CONTINUE FOR 2 DAYS. 12/23/18 19:50 Blood - Peripheral Venous Blood Culture - Preliminary NO GROWTH OBTAINED AFTER 72 HOURS, INCUBATION TO CONTINUE FOR 2 DAYS. 12/21/18 12:00 Blood - Peripheral Venous Blood Culture - Final NO GROWTH AFTER 5 DAYS INCUBATION 12/21/18 12:00 Blood - Peripheral Venous Blood Culture - Final NO GROWTH AFTER 5 DAYS INCUBATION 12/24/18 00:00 Urine - Urine Clean Catch Urine Culture - Final NO GROWTH OBTAINED 12/21/18 12:25 Urine - Urine Clean Catch Urine Culture - Final Escherichia Coli - ....Imaging Chest X-ray: Report Reviewed Cat Scan: Report Reviewed Problem List - Problems (1) Afib Code(s): I48.91 - UNSPECIFIED ATRIAL FIBRILLATION Qualifiers: Atrial fibrillation type: other persistent Qualified Code(s): I48.19 - Other persistent atrial fibrillation (2) CHF exacerbation Code(s): I50.9 - HEART FAILURE, UNSPECIFIED Qualifiers: Heart failure type: diastolic Qualified Code(s): I50.33 - Acute on chronic diastolic (congestive) heart failure (3) Cellulitis Code(s): L03.90 - CELLULITIS, UNSPECIFIED Qualifiers: Site of cellulitis: extremity Site of cellulitis of extremity: lower extremity Laterality: left Qualified Code(s): L03.116 - Cellulitis of left lower limb (4) Morbid obesity Code(s): E66.01 - MORBID (SEVERE) OBESITY DUE TO EXCESS CALORIES (5) HTN (hypertension) Code(s): I10 - ESSENTIAL (PRIMARY) HYPERTENSION Qualifiers: Hypertension type: essential hypertension Qualified Code(s): I10 - Essential (primary) hypertension (6) Hypothyroid Code(s): E03.9 - HYPOTHYROIDISM, UNSPECIFIED Qualifiers: Hypothyroidism type: unspecified Qualified Code(s): E03.9 - Hypothyroidism , unspecified (7) Sepsis Code(s): A41.9 - SEPSIS, UNSPECIFIED ORGANISM Qualifiers: Sepsis type: sepsis due to unspecified organism Sepsis acute organ dysfunction status: without acute organ dysfunction Qualified Code(s): A41.9 - Sepsis, unspecified organism Assessment/Plan Sepsis Extensive LLE Cellulitis Fever Chronic venous stasis AFIB CHF CAD -- LLE still with significant edema/erythema/warmth, still with low grade fevers but downward trend -- CT LE without abscess -- Blood cultures/urine cultures neg, CXR neg -- continue Meropenem/Vancomycin empirically for now -- continue monitor
[2018-12-27] MEDS: RIVAROXABAN 20 MG TABLET PO SCH (17:32)
[2018-12-27] MEDS: AMMONIUM LACTATE 12% LOTION 225 GM BOTTLE TP SCH (17:32)
[2018-12-27] MEDS: CHLORHEXIDINE GLUCONATE 4% CLEANSER FOR DECOLONIZATION TP SCH (22:41)
[2018-12-28] MEDS ORDERED: MEROPENEM 1 GM VIAL (RESTRICTED TO ID) IVPB ONE ×3 (00:32→16:45)
[2018-12-28] MEDS ORDERED: DEXTROSE 5%-WATER 100 ML IVPB ONE ×3 (00:32→16:46)
[2018-12-28] MEDS: MEROPENEM 1 GM in DEXTROSE 5%-WATER 100 ML IVPB SCH ×3 (01:08→18:01)
[2018-12-28] MEDS: LEVOTHYROXINE NA 125 MCG TABLET (FP) PO SCH (06:22)
[2018-12-28 07:09] LABS: BASO % 0.7 % (0-2.0); EOS % 0.8 % (0-4.5); HEMATOCRIT 31.2 % (32.4-45.2); HEMOGLOBIN 10.2 GM/dL (10.7-15.3); LYMPH % 16.8 % (8-40); MCH 30.1 pg (25.7-33.7); MCHC 32.7 g/dl (32.0-36.0); MEAN CELL VOLUME 92.2 fl (80-96); MEAN PLT VOLUME 9.1 fl (7.5-11.1); MONO % 11.3 % (3.8-10.2); NEUT % 70.4 % (42.8-82.8); PLATELET COUNT 323 K/MM3 (134-434); RBC 3.38 M/mm3 (3.60-5.2); RDW 16.6 % (11.6-15.6); WHITE BLOOD COUNT 10.5 K/mm3 (4.0-10.0)
[2018-12-28 07:27] LABS: BLOOD UREA NITROGEN 16.9 mg/dL (7-18); CALCIUM 8.6 mg/dL (8.5-10.1); CREATININE 1.1 mg/dL (0.55-1.3); MAGNESIUM 2.3 mg/dL (1.8-2.4); POTASSIUM 4.4 mmol/L (3.5-5.1)
[2018-12-28] MEDS: AMMONIUM LACTATE 12% LOTION 225 GM BOTTLE TP SCH (09:10)
[2018-12-28] MEDS: FERROUS SO4 325 MG TABLET (FP) PO SCH ×2 (09:10→21:58)
[2018-12-28] MEDS: POTASSIUM CHLORIDE ORAL LIQUID 20 MEQ/15 ML PO SCH ×2 (09:10→21:58)
[2018-12-28] MEDS: FUROSEMIDE 40 MG/4 ML INJECTABLE VIAL IVPUSH SCH (09:10)
--- NOTE | 2018-12-28 11:09 | PN ---
Progress Note (short form) - Note Progress Note: SUBJECTIVE: SOB improved, LLE pain/redness persistent but improving. Fevers down -trending OBJECTIVE: Ongoing fevers, Tmax 101.2. Hemodynamically Stable Last Vital Signs Temp Pulse Resp BP Pulse Ox 98.5 F 92 H 22 H 130/70 97 12/28/18 10:00 12/28/18 10:00 12/28/18 10:00 12/28/18 10:00 12/28/18 09:00 HEART: Irregular LUNGS: Clear to auscultation ABDOMEN: High BMI. Soft, non-tender, non-distended, normal BS EXTREMITIES: LE edema ++ (improving), chronic venous stasis changes, L>R. LLE erythema +. Laboratory Results - last 24 hr 12/28/18 12/28/18 05:55 05:55 WBC 10.5 H RBC 3.38 L Hgb 10.2 L Hct 31.2 L MCV 92.2 MCH 30.1 MCHC 32.7 RDW 16.6 H Plt Count 323 D MPV 9.1 Absolute Neuts (auto) 7.4 Neutrophils % 70.4 Lymphocytes % 16.8 Monocytes % 11.3 H Eosinophils % 0.8 Basophils % 0.7 Nucleated RBC % 0 Sodium 135 L Potassium 4.4 Chloride 97 L Carbon Dioxide 32 Anion Gap 5 L BUN 16.9 Creatinine 1.1 Est GFR (CKD-EPI)AfAm 56.87 Est GFR (CKD-EPI)NonAf 49.07 Random Glucose 98 Calcium 8.6 Magnesium 2.3 Current Medications Generic Name Dose Route Start Last Admin Trade Name Freq PRN Reason Stop Dose Admin Acetaminophen 650 mg 12/26/18 07:06 12/27/18 19:50 Tylenol - PO 650 mg Q6H PRN Administration Fever Or Pain Chlorhexidine Gluconate 1 applic 12/25/18 21:00 12/27/18 22:41 Hibiclens For Decolonization - TP Not Given HS@2100 ALYSSA Diltiazem HCl 10 mg 12/26/18 07:06 Cardizem Injection - IVPUSH Q4H PRN TACHYCARDIA Docusate Sodium 100 mg 12/26/18 07:06 Colace - PO BID PRN CONSTIPATION Ferrous Sulfate 325 mg 12/26/18 10:00 12/28/18 09:10 Feosol - PO 325 mg BID ALYSSA Administration Furosemide 40 mg 12/26/18 10:00 12/28/18 09:10 Lasix Injection - IVPUSH 40 mg DAILY ALYSSA Administration Furosemide 40 mg 12/28/18 14:00 Lasix Injection - IVPUSH 12/28/18 14:01 ONCE ONE Meropenem 1 gm/ Dextrose 100 mls @ 200 mls/hr 12/26/18 14:30 12/28/18 09:10 IVPB 200 mls/hr Q8H-IV ALYSSA Administration Vancomycin HCl 1,500 mg/ 500 mls @ 250 mls/hr 12/26/18 14:30 12/27/18 14:00 Dextrose IVPB 250 mls/hr Q24H ALYSSA Administration Protocol Lactic Acid 1 applic 12/26/18 10:00 12/28/18 09:10 Lac-Hydrin 12 TP 1 applic DAILY ALYSSA Administration Levothyroxine Sodium 125 mcg 12/27/18 07:00 12/28/18 06:22 Synthroid - PO 125 mcg DAILY@0700 ALYSSA Administration Metoprolol Succinate 100 mg 12/26/18 10:00 12/28/18 09:10 Toprol Xl - PO 100 mg DAILY ALYSSA Administration Potassium Chloride 20 meq 12/26/18 10:00 12/28/18 09:10 Potassium Chloride Oral Liquid PO 20 meq BID ALYSSA Administration Rivaroxaban 20 mg 12/26/18 18:00 12/27/18 17:32 Xarelto PO 20 mg DAILY@1800 ALYSSA Administration Spironolactone 25 mg 12/26/18 07:06 12/26/18 08:48 Aldactone - PO 25 mg MOWEFR ALYSSA Administration Home Medications Medication Instructions Recorded Levothyroxine Sodium [Synthroid] 125 mcg PO DAILY 04/10/17 Rivaroxaban [Xarelto -] 20 mg PO HS 04/10/17 Albuterol Sulfate Inhaler - 1 - 2 inh PO Q6H PRN #1 inhaler 11/28/18 [Ventolin HFA Inhaler -] Doxycycline Hyclate 100 mg PO BID #7 tablet 11/28/18 Metoprolol Succinate [Toprol XL -] 100 mg PO DAILY #30 tab.sr.24h 11/28/18 Prednisone See Taper PO DAILY #42 tablet 11/28/18 Spironolactone [Aldactone] 25 mg PO MOWEFR #20 tablet 11/28/18 Amiodarone HCl 200 mg PO DAILY 12/22/18 Amlodipine Besylate 10 mg PO DAILY 12/22/18 Furosemide 80 mg PO TUTHSA 12/22/18 Levothyroxine [Synthroid -] 112 mcg PO DAILY 12/22/18 Metformin HCl [Glucophage] 500 mg PO AM 12/22/18 Furosemide [Lasix -] 40 mg PO MOWEFR 12/26/18 ASSESSMENT AND PLAN: 73 year old female with a history of CAD, HTN, Hypothyroidism, Atrial Fibrillation s/p Ablation x 2, chronic diastolic heart failure, anemia, hypothyroidism, PAD, chronic venous stasis, chronic leg wounds, who presented to the ED with SOB, fever, worsening left leg swelling, redness, and weeping. 1. Severe sepsis secondary to LLE cellulitis and UTI - Still Febrile + UCx pos for EColi. Blood Cx neg x 6. Was still spiking fevers on Cefepime, Vancomycin - changed to IV Meropenem on consultation with ID. Vancomycin added 12/26. Continue Tereso and Vanco pending ID re-eval. CT LLE requested to exclude underlying abscess - no collection, soft tissue edema consistent with cellulitis. Further Abx management as per ID 2. Atrial Fibrillation with RVR - rate controlled. Continue Toprol XL, Xarelto 3. Acute Hypoxic Respiratory Failure secondary to acute on chronic diastolic heart failure - improving . Continue IV Lasix (dosing at 40mg IV BID since 12/26 ), Aldactone. Monitor renal function. 4. CAD - Continue Toprol XL 5. HTN - Continue Toprol XL, Lasix, Aldactone 6. Hypothyroidism - Continue Synthroid. TSH 3.41 7. Anemia, Iron deficiency. Iron Sat 4%, B12 726, Folate 34. No evidence of acute blood loss. Further Ix as out-patient. Fe supplementation for now. 8. PAD - on Xarelto 9. Chronic venous stasis/Lymphedema - continue Wound care/Vascular Sx/Aldactone/ Lasix. DVT Px - on Xarelto Visit type - Emergency Visit Emergency Visit: Yes ED Registration Date: 12/21/18 Care time: The patient presented to the Emergency Department on the above date and was hospitalized for further evaluation of their emergent condition. - New Patient This patient is new to me today: No - Critical Care Critical Care patient: No - Discharge Referral Referred to [facility] No
--- NOTE | 2018-12-28 11:39 | PN ---
Progress Note, Physician History of Present Illness: 73 yr old woman with PMH of diastolic CHF, anemia, Afib (s/p 2 ablations, currently on xarelto), hypothyroid, PVD and CAD, chronic venous stasis, chronic lower extremity wounds who presents to the ER with SOB, subjective fevers, worsening left leg swelling, redness, and weeping from her wounds. She denies chest pain, palpitations, near or true syncope, orthopnea, PND. - Current Medication List Current Medications: Active Medications Acetaminophen (Tylenol -) 650 mg PO Q6H PRN PRN Reason: Fever Or Pain Last Admin: 12/27/18 19:50 Dose: 650 mg Chlorhexidine Gluconate (Hibiclens For Decolonization -) 1 applic TP HS@2100 [facility] Last Admin: 12/27/18 22:41 Dose: Not Given Diltiazem HCl (Cardizem Injection -) 10 mg IVPUSH Q4H PRN PRN Reason: TACHYCARDIA Docusate Sodium (Colace -) 100 mg PO BID PRN PRN Reason: CONSTIPATION Ferrous Sulfate (Feosol -) 325 mg PO BID [facility] Last Admin: 12/28/18 09:10 Dose: 325 mg Furosemide (Lasix Injection -) 40 mg IVPUSH DAILY [facility] Last Admin: 12/28/18 09:10 Dose: 40 mg Furosemide (Lasix Injection -) 40 mg IVPUSH ONCE ONE Stop: 12/28/18 14:01 Meropenem 1 gm/ Dextrose 100 mls @ 200 mls/hr IVPB Q8H-IV ALYSSA Last Admin: 12/28/18 09:10 Dose: 200 mls/hr Vancomycin HCl 1,500 mg/ (Dextrose) 500 mls @ 250 mls/hr IVPB Q24H [facility]; Protocol Last Admin: 12/27/18 14:00 Dose: 250 mls/hr Lactic Acid (Lac-Hydrin 12) 1 applic TP DAILY [facility] Last Admin: 12/28/18 09:10 Dose: 1 applic Levothyroxine Sodium (Synthroid -) 125 mcg PO DAILY@0700 [facility] Last Admin: 12/28/18 06:22 Dose: 125 mcg Metoprolol Succinate (Toprol Xl -) 100 mg PO DAILY [facility] Last Admin: 12/28/18 09:10 Dose: 100 mg Potassium Chloride (Potassium Chloride Oral Liquid) 20 meq PO BID [facility] Last Admin: 12/28/18 09:10 Dose: 20 meq Rivaroxaban (Xarelto) 20 mg PO DAILY@1800 [facility] Last Admin: 12/27/18 17:32 Dose: 20 mg Spironolactone (Aldactone -) 25 mg PO MOWEFR [facility] Last Admin: 12/26/18 08:48 Dose: 25 mg - Objective Vital Signs: Vital Signs Temperature 98.5 F 12/28/18 10:00 Pulse Rate 92 H 12/28/18 10:00 Respiratory Rate 22 H 12/28/18 10:00 Blood Pressure 130/70 12/28/18 10:00 O2 Sat by Pulse Oximetry (%) 97 12/28/18 09:00 Eyes: Yes: WNL, Conjunctiva Clear, EOM Intact HENT: Yes: WNL, Atraumatic, Normocephalic Neck: Yes: WNL, Supple, Trachea Midline Cardiovascular: Yes: WNL, Regular Rate and Rhythm Respiratory: Yes: WNL, Regular, CTA Bilaterally Gastrointestinal: Yes: WNL, Normal Bowel Sounds Genitourinary: Yes: WNL Musculoskeletal: Yes: WNL Extremities: Yes: Erythema Edema: No Edema: LLE: 2+, RLE: 2+ Integumentary: Yes: WNL Neurological: Yes: WNL, Alert, Oriented ...Motor Strength: WNL Psychiatric: Yes: WNL Labs: CBC, BMP 12/28/18 05:55 12/28/18 05:55 INR, PTT INR 1.34 (0.83-1.09) H 12/21/18 12:00 Assessment/Plan - Problems (1) Morbid obesity Code(s): E66.01 - MORBID (SEVERE) OBESITY DUE TO EXCESS CALORIES (2) Afib Assessment/Plan: EKG: AF with controlled VR Telelmetry: AF with controlled VR. Continue metoprolol ER for HR control (has diltiazem IVP as prn backup). On DOAC for anticoagulation. ECHO: normal LVEF; abnormal diastolic compliacne; borderline dilated LA. Weight loss would be of benefit for overall health, as well as specifically aid to lessening CHF and AF episodes. Code(s): I48.91 - UNSPECIFIED ATRIAL FIBRILLATION Qualifiers: Atrial fibrillation type: other persistent Qualified Code(s): I48.19 - Other persistent atrial fibrillation (3) Cellulitis Assessment/Plan: On antibiotics per ID. (Pt believes "fleas" from her cats were the cause of her leg probelmes, begtinning 4 years ago). Code(s): L03.90 - CELLULITIS, UNSPECIFIED Qualifiers: Site of cellulitis: extremity Site of cellulitis of extremity: lower extremity Laterality: left Qualified Code(s): L03.116 - Cellulitis of left lower limb (4) HTN (hypertension) Code(s): I10 - ESSENTIAL (PRIMARY) HYPERTENSION Qualifiers: Hypertension type: essential hypertension Qualified Code(s): I10 - Essential (primary) hypertension (5) Hypothyroid Code(s): E03.9 - HYPOTHYROIDISM, UNSPECIFIED Qualifiers: Hypothyroidism type: unspecified Qualified Code(s): E03.9 - Hypothyroidism , unspecified (6) Sepsis Code(s): A41.9 - SEPSIS, UNSPECIFIED ORGANISM Qualifiers: Sepsis type: sepsis due to unspecified organism Sepsis acute organ dysfunction status: without acute organ dysfunction Qualified Code(s): A41.9 - Sepsis, unspecified organism d/c telemetry
[2018-12-28] MEDS: ACETAMINOPHEN 325 MG TABLET (FP) PO PRN ×2 (11:57→18:04)
--- NOTE | 2018-12-28 12:40 | PN ---
Progress Note, Physician History of Present Illness: Pt states she feels well. Has some LLE tenderness to touch but less edema. Tmax 101.2 last night, currently 100.6F. Has no new complaints. - Current Medication List Current Medications: Active Medications Acetaminophen (Tylenol -) 650 mg PO Q6H PRN PRN Reason: Fever Or Pain Last Admin: 12/28/18 11:57 Dose: 650 mg Chlorhexidine Gluconate (Hibiclens For Decolonization -) 1 applic TP HS@2100 [facility] Last Admin: 12/27/18 22:41 Dose: Not Given Diltiazem HCl (Cardizem Injection -) 10 mg IVPUSH Q4H PRN PRN Reason: TACHYCARDIA Docusate Sodium (Colace -) 100 mg PO BID PRN PRN Reason: CONSTIPATION Ferrous Sulfate (Feosol -) 325 mg PO BID [facility] Last Admin: 12/28/18 09:10 Dose: 325 mg Furosemide (Lasix Injection -) 40 mg IVPUSH DAILY [facility] Last Admin: 12/28/18 09:10 Dose: 40 mg Furosemide (Lasix Injection -) 40 mg IVPUSH ONCE ONE Stop: 12/28/18 14:01 Meropenem 1 gm/ Dextrose 100 mls @ 200 mls/hr IVPB Q8H-IV ALYSSA Last Admin: 12/28/18 09:10 Dose: 200 mls/hr Vancomycin HCl 1,500 mg/ (Dextrose) 500 mls @ 250 mls/hr IVPB Q24H [facility]; Protocol Last Admin: 12/27/18 14:00 Dose: 250 mls/hr Lactic Acid (Lac-Hydrin 12) 1 applic TP DAILY [facility] Last Admin: 12/28/18 09:10 Dose: 1 applic Levothyroxine Sodium (Synthroid -) 125 mcg PO DAILY@0700 [facility] Last Admin: 12/28/18 06:22 Dose: 125 mcg Metoprolol Succinate (Toprol Xl -) 100 mg PO DAILY [facility] Last Admin: 12/28/18 09:10 Dose: 100 mg Potassium Chloride (Potassium Chloride Oral Liquid) 20 meq PO BID [facility] Last Admin: 12/28/18 09:10 Dose: 20 meq Rivaroxaban (Xarelto) 20 mg PO DAILY@1800 [facility] Last Admin: 12/27/18 17:32 Dose: 20 mg Spironolactone (Aldactone -) 25 mg PO MOWEFR [facility] Last Admin: 12/26/18 08:48 Dose: 25 mg - Objective Vital Signs: Vital Signs Temperature 100.6 F H 12/28/18 11:53 Pulse Rate 103 H 12/28/18 11:53 Respiratory Rate 22 H 12/28/18 11:53 Blood Pressure 130/70 12/28/18 10:00 O2 Sat by Pulse Oximetry (%) 97 12/28/18 09:00 Constitutional: Yes: No Distress, Calm Cardiovascular: Yes: Regular Rate and Rhythm Respiratory: Yes: Regular Gastrointestinal: Yes: Normal Bowel Sounds, Soft, Abdomen, Obese Genitourinary: Yes: WNL Extremities: Yes: Erythema (LLE ++erythema/warmth, mild tenderness, less edema) Neurological: Yes: Alert, Oriented Labs: CBC, BMP 12/28/18 05:55 12/28/18 05:55 INR, PTT INR 1.34 (0.83-1.09) H 12/21/18 12:00 Microbiology 12/26/18 10:00 Blood - Peripheral Venous Blood Culture - Preliminary NO GROWTH OBTAINED AFTER 48 HOURS, INCUBATION TO CONTINUE FOR 3 DAYS. 12/26/18 09:48 Blood - Peripheral Venous Blood Culture - Preliminary NO GROWTH OBTAINED AFTER 48 HOURS, INCUBATION TO CONTINUE FOR 3 DAYS. 12/23/18 20:10 Blood - Peripheral Venous Blood Culture - Preliminary NO GROWTH OBTAINED AFTER 96 HOURS, INCUBATION TO CONTINUE FOR 1 DAYS. 12/23/18 19:50 Blood - Peripheral Venous Blood Culture - Preliminary NO GROWTH OBTAINED AFTER 96 HOURS, INCUBATION TO CONTINUE FOR 1 DAYS. - ....Imaging Chest X-ray: Report Reviewed (no new infiltrates) Cat Scan: Report Reviewed (LLE no abscess, +cellulitis) Problem List - Problems (1) Afib Code(s): I48.91 - UNSPECIFIED ATRIAL FIBRILLATION Qualifiers: Atrial fibrillation type: other persistent Qualified Code(s): I48.19 - Other persistent atrial fibrillation (2) CHF exacerbation Code(s): I50.9 - HEART FAILURE, UNSPECIFIED Qualifiers: Heart failure type: diastolic Qualified Code(s): I50.33 - Acute on chronic diastolic (congestive) heart failure (3) Cellulitis Code(s): L03.90 - CELLULITIS, UNSPECIFIED Qualifiers: Site of cellulitis: extremity Site of cellulitis of extremity: lower extremity Laterality: left Qualified Code(s): L03.116 - Cellulitis of left lower limb (4) Morbid obesity Code(s): E66.01 - MORBID (SEVERE) OBESITY DUE TO EXCESS CALORIES (5) HTN (hypertension) Code(s): I10 - ESSENTIAL (PRIMARY) HYPERTENSION Qualifiers: Hypertension type: essential hypertension Qualified Code(s): I10 - Essential (primary) hypertension (6) Hypothyroid Code(s): E03.9 - HYPOTHYROIDISM, UNSPECIFIED Qualifiers: Hypothyroidism type: unspecified Qualified Code(s): E03.9 - Hypothyroidism , unspecified (7) Sepsis Code(s): A41.9 - SEPSIS, UNSPECIFIED ORGANISM Qualifiers: Sepsis type: sepsis due to unspecified organism Sepsis acute organ dysfunction status: without acute organ dysfunction Qualified Code(s): A41.9 - Sepsis, unspecified organism Assessment/Plan Sepsis Extensive LLE Cellulitis Persistent Fever Chronic venous stasis AFIB CHF CAD -- remains febrile, was switched to Meropenem/Vancomycin -- still with significant cellulitis -- blood/urine cultures neg, CXR neg, CT LE no abscess -- if fevers persist, consider further imaging for occult source -- continue monitor
[2018-12-28] MEDS ORDERED: FUROSEMIDE 40 MG/4 ML INJECTABLE VIAL IVPUSH ONE (14:00)
[2018-12-28] MEDS: VANCOMYCIN HCL 1,500 MG in DEXTROSE 5%-WATER - 500 ML IVPB SCH (14:26)
[2018-12-28] MEDS: RIVAROXABAN 20 MG TABLET PO SCH (18:01)
[2018-12-28] MEDS ORDERED: PT OWN MED DRAWER 7, Y5N ONE (18:14)
[2018-12-28] MEDS: CHLORHEXIDINE GLUCONATE 4% CLEANSER FOR DECOLONIZATION TP SCH (22:00)
[2018-12-29] MEDS: MEROPENEM 1 GM in DEXTROSE 5%-WATER 100 ML IVPB SCH ×3 (03:10→17:41)
[2018-12-29] MEDS ORDERED: MEROPENEM 1 GM VIAL (RESTRICTED TO ID) IVPB ONE ×3 (03:13→16:48)
[2018-12-29] MEDS ORDERED: DEXTROSE 5%-WATER 100 ML IVPB ONE ×3 (03:13→16:48)
[2018-12-29] MEDS: LEVOTHYROXINE NA 125 MCG TABLET (FP) PO SCH (06:25)
[2018-12-29] MEDS: SPIRONOLACTONE 25 MG TABLET (FP) PO SCH (06:28)
[2018-12-29] MEDS: ACETAMINOPHEN 325 MG TABLET (FP) PO PRN (06:59)
[2018-12-29] MEDS: CHLORHEXIDINE GLUCONATE 4% CLEANSER FOR DECOLONIZATION TP SCH ×2 (07:14→20:00)
[2018-12-29] MEDS: POTASSIUM CHLORIDE ORAL LIQUID 20 MEQ/15 ML PO SCH ×2 (09:32→21:29)
[2018-12-29] MEDS: AMMONIUM LACTATE 12% LOTION 225 GM BOTTLE TP SCH (09:32)
[2018-12-29] MEDS: FUROSEMIDE 40 MG/4 ML INJECTABLE VIAL IVPUSH SCH (09:32)
[2018-12-29] MEDS: FERROUS SO4 325 MG TABLET (FP) PO SCH ×2 (09:32→21:29)
[2018-12-29 10:25] LABS: BLOOD UREA NITROGEN 14.6 mg/dL (7-18); CALCIUM 8.8 mg/dL (8.5-10.1); CREATININE 1.2 mg/dL (0.55-1.3)
--- NOTE | 2018-12-29 12:14 | PN ---
Teaching Attending Note Name of Resident: Connor Mills ATTENDING PHYSICIAN STATEMENT I saw and evaluated the patient. I reviewed the resident's note and discussed the case with the resident. I agree with the resident's findings and plan as documented. SUBJECTIVE: SOB resolved, LLE pain/redness persistent but improving. Fevers down -trending OBJECTIVE: Tmax 100. Hemodynamically Stable Last Vital Signs Temp Pulse Resp BP Pulse Ox 99.6 F 88 22 H 112/74 97 12/29/18 10:00 12/29/18 10:00 12/29/18 10:00 12/29/18 10:00 12/28/18 21:00 HEART: Irregular LUNGS: Clear to auscultation ABDOMEN: High BMI. Soft, non-tender, non-distended, normal BS EXTREMITIES: LE edema ++ (improving), chronic venous stasis changes, L>R. LLE erythema +. Laboratory Results - last 24 hr 12/29/18 09:30 Sodium 136 Potassium 4.0 Chloride 97 L Carbon Dioxide 33 H Anion Gap 6 L BUN 14.6 Creatinine 1.2 Est GFR (CKD-EPI)AfAm 51.20 Est GFR (CKD-EPI)NonAf 44.17 Random Glucose 148 H Calcium 8.8 Current Medications Generic Name Dose Route Start Last Admin Trade Name Freq PRN Reason Stop Dose Admin Acetaminophen 650 mg 12/26/18 07:06 12/29/18 06:59 Tylenol - PO 650 mg Q6H PRN Administration Fever Or Pain Chlorhexidine Gluconate 1 applic 12/25/18 21:00 12/29/18 07:14 Hibiclens For Decolonization - TP 1 applic HS@2100 ALYSSA Administration Diltiazem HCl 10 mg 12/26/18 07:06 Cardizem Injection - IVPUSH Q4H PRN TACHYCARDIA Docusate Sodium 100 mg 12/26/18 07:06 Colace - PO BID PRN CONSTIPATION Ferrous Sulfate 325 mg 12/26/18 10:00 12/29/18 09:32 Feosol - PO 325 mg BID ALYSSA Administration Furosemide 40 mg 12/26/18 10:00 12/29/18 09:32 Lasix Injection - IVPUSH 40 mg DAILY ALYSSA Administration Furosemide 40 mg 12/29/18 14:00 Lasix Injection - IVPUSH 12/29/18 14:01 ONCE ONE Meropenem 1 gm/ Dextrose 100 mls @ 200 mls/hr 12/26/18 14:30 12/29/18 09:32 IVPB 200 mls/hr Q8H-IV ALYSSA Administration Vancomycin HCl 1,500 mg/ 500 mls @ 250 mls/hr 12/26/18 14:30 12/28/18 14:26 Dextrose IVPB 250 mls/hr Q24H ALYSSA Administration Protocol Lactic Acid 1 applic 12/26/18 10:00 12/29/18 09:32 Lac-Hydrin 12 TP 1 applic DAILY ALYSSA Administration Levothyroxine Sodium 125 mcg 12/27/18 07:00 12/29/18 06:25 Synthroid - PO 125 mcg DAILY@0700 ALYSSA Administration Metoprolol Succinate 100 mg 12/26/18 10:00 12/29/18 09:32 Toprol Xl - PO 100 mg DAILY ALYSSA Administration Potassium Chloride 20 meq 12/26/18 10:00 12/29/18 09:32 Potassium Chloride Oral Liquid PO 20 meq BID ALYSSA Administration Rivaroxaban 20 mg 12/26/18 18:00 12/28/18 18:01 Xarelto PO 20 mg DAILY@1800 ALYSSA Administration Spironolactone 25 mg 12/26/18 07:06 12/29/18 06:28 Aldactone - PO 25 mg MOWEFR ALYSSA Administration Home Medications Medication Instructions Recorded Levothyroxine Sodium [Synthroid] 125 mcg PO DAILY 04/10/17 Rivaroxaban [Xarelto -] 20 mg PO HS 04/10/17 Albuterol Sulfate Inhaler - 1 - 2 inh PO Q6H PRN #1 inhaler 11/28/18 [Ventolin HFA Inhaler -] Doxycycline Hyclate 100 mg PO BID #7 tablet 11/28/18 Metoprolol Succinate [Toprol XL -] 100 mg PO DAILY #30 tab.sr.24h 11/28/18 Prednisone See Taper PO DAILY #42 tablet 11/28/18 Spironolactone [Aldactone] 25 mg PO MOWEFR #20 tablet 11/28/18 Amiodarone HCl 200 mg PO DAILY 12/22/18 Amlodipine Besylate 10 mg PO DAILY 12/22/18 Furosemide 80 mg PO TUTHSA 12/22/18 Levothyroxine [Synthroid -] 112 mcg PO DAILY 12/22/18 Metformin HCl [Glucophage] 500 mg PO AM 12/22/18 Furosemide [Lasix -] 40 mg PO MOWEFR 12/26/18 ASSESSMENT AND PLAN: 73 year old female with a history of CAD, HTN, Hypothyroidism, Atrial Fibrillation s/p Ablation x 2, chronic diastolic heart failure, anemia, hypothyroidism, PAD, chronic venous stasis, chronic leg wounds, who presented to the ED with SOB, fever, worsening left leg swelling, redness, and weeping. 1. Severe sepsis secondary to LLE cellulitis and UTI. Cellulitis slowly improving. UCx pos for EColi. Blood Cx neg x 6. Was still spiking fevers on Cefepime, Vancomycin - changed to IV Meropenem on consultation with ID. Vancomycin added 12/26. Continue Tereso and Vanco pending ID re-eval. CT LLE requested to exclude underlying abscess - no collection, soft tissue edema consistent with cellulitis. Further Abx management as per ID 2. Atrial Fibrillation with RVR - rate controlled. Continue Toprol XL, Xarelto 3. Acute Hypoxic Respiratory Failure secondary to acute on chronic diastolic heart failure - improving . Continue IV Lasix (dosing at 40mg IV BID since 12/26 ), Aldactone. Monitor renal function. 4. CAD - Continue Toprol XL 5. HTN - Continue Toprol XL, Lasix, Aldactone 6. Hypothyroidism - Continue Synthroid. TSH 3.41 7. Anemia, Iron deficiency. Iron Sat 4%, B12 726, Folate 34. No evidence of acute blood loss. Further Ix as out-patient. Fe supplementation for now. 8. PAD - on Xarelto 9. Chronic venous stasis/Lymphedema - continue Wound care/Vascular Sx/Aldactone/ Lasix. DVT Px - on Xarelto
--- NOTE | 2018-12-29 13:09 | PN ---
Progress Note, Physician History of Present Illness: low grade fever leg continues to improve - Current Medication List Current Medications: Active Medications Acetaminophen (Tylenol -) 650 mg PO Q6H PRN PRN Reason: Fever Or Pain Last Admin: 12/29/18 06:59 Dose: 650 mg Chlorhexidine Gluconate (Hibiclens For Decolonization -) 1 applic TP HS@2100 [facility] Last Admin: 12/29/18 07:14 Dose: 1 applic Diltiazem HCl (Cardizem Injection -) 10 mg IVPUSH Q4H PRN PRN Reason: TACHYCARDIA Docusate Sodium (Colace -) 100 mg PO BID PRN PRN Reason: CONSTIPATION Ferrous Sulfate (Feosol -) 325 mg PO BID [facility] Last Admin: 12/29/18 09:32 Dose: 325 mg Furosemide (Lasix Injection -) 40 mg IVPUSH DAILY [facility] Last Admin: 12/29/18 09:32 Dose: 40 mg Furosemide (Lasix Injection -) 40 mg IVPUSH ONCE ONE Stop: 12/29/18 14:01 Meropenem 1 gm/ Dextrose 100 mls @ 200 mls/hr IVPB Q8H-IV ALYSSA Last Admin: 12/29/18 09:32 Dose: 200 mls/hr Vancomycin HCl 1,500 mg/ (Dextrose) 500 mls @ 250 mls/hr IVPB Q24H [facility]; Protocol Last Admin: 12/28/18 14:26 Dose: 250 mls/hr Lactic Acid (Lac-Hydrin 12) 1 applic TP DAILY [facility] Last Admin: 12/29/18 09:32 Dose: 1 applic Levothyroxine Sodium (Synthroid -) 125 mcg PO DAILY@0700 [facility] Last Admin: 12/29/18 06:25 Dose: 125 mcg Metoprolol Succinate (Toprol Xl -) 100 mg PO DAILY [facility] Last Admin: 12/29/18 09:32 Dose: 100 mg Potassium Chloride (Potassium Chloride Oral Liquid) 20 meq PO BID [facility] Last Admin: 12/29/18 09:32 Dose: 20 meq Rivaroxaban (Xarelto) 20 mg PO DAILY@1800 [facility] Last Admin: 12/28/18 18:01 Dose: 20 mg Spironolactone (Aldactone -) 25 mg PO MOWEFR [facility] Last Admin: 12/29/18 06:28 Dose: 25 mg - Objective Vital Signs: Vital Signs Temperature 99.6 F 12/29/18 10:00 Pulse Rate 88 12/29/18 10:00 Respiratory Rate 22 H 12/29/18 10:00 Blood Pressure 112/74 12/29/18 10:00 O2 Sat by Pulse Oximetry (%) 97 12/28/18 21:00 Constitutional: Yes: No Distress, Calm Cardiovascular: Yes: S1, S2 Respiratory: Yes: Regular, On Nasal O2 Gastrointestinal: Yes: Normal Bowel Sounds, Soft Musculoskeletal: Yes: Other Extremities: Yes: Erythema (improving swelling ahs improved) Neurological: Yes: Alert, Oriented Psychiatric: Yes: Alert, Oriented Labs: CBC, BMP 12/28/18 05:55 12/29/18 09:30 INR, PTT INR 1.34 (0.83-1.09) H 12/21/18 12:00 Assessment/Plan Problem List - Problems (1) Afib Code(s): I48.91 - UNSPECIFIED ATRIAL FIBRILLATION Qualifiers: Atrial fibrillation type: other persistent Qualified Code(s): I48.19 - Other persistent atrial fibrillation (2) CHF exacerbation Code(s): I50.9 - HEART FAILURE, UNSPECIFIED Qualifiers: Heart failure type: diastolic Qualified Code(s): I50.33 - Acute on chronic diastolic (congestive) heart failure (3) Cellulitis Code(s): L03.90 - CELLULITIS, UNSPECIFIED Qualifiers: Site of cellulitis: extremity Site of cellulitis of extremity: lower extremity Laterality: left Qualified Code(s): L03.116 - Cellulitis of left lower limb (4) HTN (hypertension) Code(s): I10 - ESSENTIAL (PRIMARY) HYPERTENSION Qualifiers: Hypertension type: essential hypertension Qualified Code(s): I10 - Essential (primary) hypertension (5) Hypothyroid Code(s): E03.9 - HYPOTHYROIDISM, UNSPECIFIED Qualifiers: Hypothyroidism type: unspecified Qualified Code(s): E03.9 - Hypothyroidism , unspecified (6) Sepsis Code(s): A41.9 - SEPSIS, UNSPECIFIED ORGANISM Qualifiers: Sepsis type: sepsis due to unspecified organism Sepsis acute organ dysfunction status: without acute organ dysfunction Qualified Code(s): A41.9 - Sepsis, unspecified organism (7) Swelling of lower leg Code(s): M79.89 - OTHER SPECIFIED SOFT TISSUE DISORDERS 8 cellulitis of the left lower leg plan continue abx close watch elevation of the leg rest as per the team
[2018-12-29] MEDS ORDERED: FUROSEMIDE 40 MG/4 ML INJECTABLE VIAL IVPUSH ONE (14:00)
[2018-12-29] MEDS: VANCOMYCIN HCL 1,500 MG in DEXTROSE 5%-WATER - 500 ML IVPB SCH (14:02)
[2018-12-29] MEDS ORDERED: PT OWN MED DRAWER 7, Y5N ONE (14:23)
--- NOTE | 2018-12-29 15:29 | PN ---
Physical Exam: SUBJECTIVE: Patient seen and examined NAEON. TEle showing HR 60-80s, occasional PVC, one episode of bigeminy Pt believes that her LLE looks better. Denies feeling fever, chilss OBJECTIVE: Vital Signs Period Temp Pulse Resp BP Sys/Ray Pulse Ox Last 24 Hr 98.2 F-100.2 F 70-92 20-22 112-149/64-74 97 GENERAL: The patient is awake, alert, no acute distress. HEAD: Normal with no signs of trauma. EYES: sclera anicteric, conjunctiva clear. ENT: nares patent, moist mucous membranes. NECK: Trachea midline, full range of motion, supple. LUNGS: no crackles to b/l lung bases, mild expir wheezes of lung bases b/l, no accessory muscle use. Breathing RA HEART: Regular rate and rhythm, S1, S2 without murmur, rub or gallop. ABDOMEN: Soft, nontender, no guarding, no rebound, no masses EXTREMITIES: 1+ pulses, warm, well-perfused. 2+ pitting edema to BLE. Redness, warmth to LLE a few centimeters below knee. Subcentimeter anterior closed distal lower leg wound w/o drainage NEUROLOGICAL: Normal speech, gait not observed. Laboratory Results - last 24 hr 12/29/18 09:30 Sodium 136 Potassium 4.0 Chloride 97 L Carbon Dioxide 33 H Anion Gap 6 L BUN 14.6 Creatinine 1.2 Est GFR (CKD-EPI)AfAm 51.20 Est GFR (CKD-EPI)NonAf 44.17 Random Glucose 148 H Calcium 8.8 Active Medications Generic Name Dose Route Start Last Admin Trade Name Freq PRN Reason Stop Dose Admin Acetaminophen 650 mg 12/26/18 07:06 12/29/18 06:59 Tylenol - PO 650 mg Q6H PRN Administration Fever Or Pain Chlorhexidine Gluconate 1 applic 12/25/18 21:00 12/29/18 07:14 Hibiclens For Decolonization - TP 1 applic HS@2100 ALYSSA Administration Diltiazem HCl 10 mg 12/26/18 07:06 Cardizem Injection - IVPUSH Q4H PRN TACHYCARDIA Docusate Sodium 100 mg 12/26/18 07:06 Colace - PO BID PRN CONSTIPATION Ferrous Sulfate 325 mg 12/26/18 10:00 12/29/18 09:32 Feosol - PO 325 mg BID ALYSSA Administration Furosemide 40 mg 12/26/18 10:00 12/29/18 09:32 Lasix Injection - IVPUSH 40 mg DAILY ALYSSA Administration Meropenem 1 gm/ Dextrose 100 mls @ 200 mls/hr 12/26/18 14:30 12/29/18 09:32 IVPB 200 mls/hr Q8H-IV ALYSSA Administration Vancomycin HCl 1,500 mg/ 500 mls @ 250 mls/hr 12/26/18 14:30 12/29/18 14:02 Dextrose IVPB 250 mls/hr Q24H ALYSSA Administration Protocol Lactic Acid 1 applic 12/26/18 10:00 12/29/18 09:32 Lac-Hydrin 12 TP 1 applic DAILY ALYSSA Administration Levothyroxine Sodium 125 mcg 12/27/18 07:00 12/29/18 06:25 Synthroid - PO 125 mcg DAILY@0700 ALYSSA Administration Metoprolol Succinate 100 mg 12/26/18 10:00 12/29/18 09:32 Toprol Xl - PO 100 mg DAILY ALYSSA Administration Potassium Chloride 20 meq 12/26/18 10:00 12/29/18 09:32 Potassium Chloride Oral Liquid PO 20 meq BID ALYSSA Administration Rivaroxaban 20 mg 12/26/18 18:00 12/28/18 18:01 Xarelto PO 20 mg DAILY@1800 ALYSSA Administration Spironolactone 25 mg 12/26/18 07:06 12/29/18 06:28 Aldactone - PO 25 mg MOWEFR ALYSSA Administration ASSESSMENT/PLAN: 73 y/o F with PMHx of HFpEF (Echo 11/20), CAD (Cath 2 years ago, No Stents), AFib (on Xarelto), Anemia, who recently discharged from [facility] in November 2018 ( treated for AFib with RVR) presents with LLE warmth/erythema, SOB, cardiac monitoring showing Afib w/ RVR(160s). Initial lactate was 2.8 but improved to 1.6. UCX grew Ecoli(page-sensitive). Persistent fevers prompted ID rec of CT LLE which showed only cellulitis but no fluid collection. ID started cefepime+vanco , changed to meropenem+vanco dt persistent fevers. Cardio consult for Afib, rec metoprolol XL 100mg, Cardizem 10mg PRN; cw xarelto. #Sepsis 2/2 LLE cellulitis > lactic acid 2.8->1.6 > UCX: E coli(page-sensitive) > fever 102.8F on 12/23/18 > fever 101.4F on 12/25/18 > CT LLE(12/25/18): LLE cellulitis, no fluid collection noted - fu CXR, UA, UCX, BCX > CXR(12/23/18): marked cardiomegaly > UA(12/24/18): neg LE, neg nitrite, WBC 1 > UCX(12/24/18): NGTD > CXR(12/26/18): cardiomegaly, congestion > BCX(12/26/18): NGTD - Vanco, Zosyn (ABx course Started on 12/21) --dc'd - random [Vanco]: 10 - ID Consulted --cw abx --cefepime + vancomycin --vancomycin dc'd on day 4 --meropenem + vancomycin --currently day 8 #normocytic anemia > Hgb 12.4->10.3-->9.9 > MCV 93-94 - ferritin sat ~4% - ferrous sulfate 325 BID + colace #chronic BLE venous congestion -wound/vascular consult: --Elevate the lower extremity above the level of the heart at all times while at rest --Bilateral compression with bernie wraps once cellulitis has receded (wrap from metacarpal heads to below knee) --Apply Lac hydrin daily (for dry scaly skin) --Compression therapy discussed with pt at length, reports she will obtain some after discharge and see if they help --Pt may f/u with Dr Ramirez in the office within the next few weeks for reflux study #Acute CHF exacerbation --possibly 2/2 AFib with RVR > CXR(12/21/18): cardiomegaly, mildly prominen central hilar vessels > TSH ~3.41 > BNP ~2260 > weight 120kg -->112.2kg -s/p IV Furosemide 20mg x1 in ED; Continue with 40mg IV QD -cw home Spironolactone 25mg M// -Monitor Daily weights, I&Os, Cr #AFib with RVR > EKG: rate 160s > EKG(12/23/18): rate 90s > Recent Echo (11/20) reveals Preserved EF > TSH 3.4 - cardio consult: --metoprolol XL 100mg, Cardizem 10mg PRN --xarelto 20mg QD #hypothryoidism - levothryoxine 125mcg QD #GEMMA, 2/2 heart failure > baseline ~ 1.0, Cr 1.2 - trend Cr #HTN -Continue Furosemide, Metoprolol Succinate, Spironolactone #FEN -No standing fluids -Replete lytes PRN -diabetic/fat controlled diet #PPx -DVT: xarelto Dispo: Tele Visit type - Emergency Visit Emergency Visit: No - New Patient This patient is new to me today: No - Critical Care Critical Care patient: No ATTENDING PHYSICIAN STATEMENT I saw and evaluated the patient. I reviewed the resident's note and discussed the case with the resident. I agree with the resident's findings and plan as documented. SUBJECTIVE: OBJECTIVE: ASSESSMENT AND PLAN:
--- NOTE | 2018-12-29 15:55 | PN ---
Progress Note, Physician History of Present Illness: 73 yr old woman with PMH of diastolic CHF, anemia, Afib (s/p 2 ablations, currently on xarelto), hypothyroid, PVD and CAD, chronic venous stasis, chronic lower extremity wounds who presents to the ER with SOB, subjective fevers, worsening left leg swelling, redness, and weeping from her wounds. She denies chest pain, palpitations, near or true syncope, orthopnea, PND. - Current Medication List Current Medications: Active Medications Acetaminophen (Tylenol -) 650 mg PO Q6H PRN PRN Reason: Fever Or Pain Last Admin: 12/29/18 06:59 Dose: 650 mg Chlorhexidine Gluconate (Hibiclens For Decolonization -) 1 applic TP HS@2100 [facility] Last Admin: 12/29/18 07:14 Dose: 1 applic Diltiazem HCl (Cardizem Injection -) 10 mg IVPUSH Q4H PRN PRN Reason: TACHYCARDIA Docusate Sodium (Colace -) 100 mg PO BID PRN PRN Reason: CONSTIPATION Ferrous Sulfate (Feosol -) 325 mg PO BID [facility] Last Admin: 12/29/18 09:32 Dose: 325 mg Furosemide (Lasix Injection -) 40 mg IVPUSH DAILY [facility] Last Admin: 12/29/18 09:32 Dose: 40 mg Meropenem 1 gm/ Dextrose 100 mls @ 200 mls/hr IVPB Q8H-IV ALYSSA Last Admin: 12/29/18 09:32 Dose: 200 mls/hr Vancomycin HCl 1,500 mg/ (Dextrose) 500 mls @ 250 mls/hr IVPB Q24H ALYSSA; Protocol Last Admin: 12/29/18 14:02 Dose: 250 mls/hr Lactic Acid (Lac-Hydrin 12) 1 applic TP DAILY [facility] Last Admin: 12/29/18 09:32 Dose: 1 applic Levothyroxine Sodium (Synthroid -) 125 mcg PO DAILY@0700 [facility] Last Admin: 12/29/18 06:25 Dose: 125 mcg Metoprolol Succinate (Toprol Xl -) 100 mg PO DAILY [facility] Last Admin: 12/29/18 09:32 Dose: 100 mg Potassium Chloride (Potassium Chloride Oral Liquid) 20 meq PO BID [facility] Last Admin: 12/29/18 09:32 Dose: 20 meq Rivaroxaban (Xarelto) 20 mg PO DAILY@1800 [facility] Last Admin: 12/28/18 18:01 Dose: 20 mg Spironolactone (Aldactone -) 25 mg PO MOWE [facility] Last Admin: 12/29/18 06:28 Dose: 25 mg - Objective Vital Signs: Vital Signs Temperature 98.4 F 12/29/18 14:00 Pulse Rate 98 H 12/29/18 14:00 Respiratory Rate 22 H 12/29/18 10:00 Blood Pressure 105/73 12/29/18 14:00 O2 Sat by Pulse Oximetry (%) 97 12/28/18 21:00 Eyes: Yes: WNL, Conjunctiva Clear, EOM Intact HENT: Yes: WNL, Atraumatic, Normocephalic Neck: Yes: WNL, Supple, Trachea Midline Cardiovascular: Yes: Pulse Irregular Respiratory: Yes: WNL, Regular, CTA Bilaterally Gastrointestinal: Yes: WNL, Normal Bowel Sounds Genitourinary: Yes: WNL Musculoskeletal: Yes: WNL Extremities: Yes: Erythema Edema: Yes Integumentary: Yes: WNL Neurological: Yes: WNL, Alert, Oriented ...Motor Strength: WNL Psychiatric: Yes: WNL Labs: CBC, BMP 12/28/18 05:55 12/29/18 09:30 INR, PTT INR 1.34 (0.83-1.09) H 12/21/18 12:00 Assessment/Plan - Problems (1) Morbid obesity Code(s): E66.01 - MORBID (SEVERE) OBESITY DUE TO EXCESS CALORIES (2) Afib Assessment/Plan: EKG: AF with controlled VR Telelmetry: AF with controlled VR. Continue metoprolol ER for HR control (has diltiazem IVP as prn backup). On DOAC for anticoagulation. ECHO: normal LVEF; abnormal diastolic compliacne; borderline dilated LA. Weight loss would be of benefit for overall health, as well as specifically aid to lessening CHF and AF episodes. Code(s): I48.91 - UNSPECIFIED ATRIAL FIBRILLATION Qualifiers: Atrial fibrillation type: other persistent Qualified Code(s): I48.19 - Other persistent atrial fibrillation (3) Cellulitis Assessment/Plan: On antibiotics per ID. (Pt believes "fleas" from her cats were the cause of her leg probelmes, begtinning 4 years ago). Code(s): L03.90 - CELLULITIS, UNSPECIFIED Qualifiers: Site of cellulitis: extremity Site of cellulitis of extremity: lower extremity Laterality: left Qualified Code(s): L03.116 - Cellulitis of left lower limb (4) HTN (hypertension) Code(s): I10 - ESSENTIAL (PRIMARY) HYPERTENSION Qualifiers: Hypertension type: essential hypertension Qualified Code(s): I10 - Essential (primary) hypertension (5) Hypothyroid Code(s): E03.9 - HYPOTHYROIDISM, UNSPECIFIED Qualifiers: Hypothyroidism type: unspecified Qualified Code(s): E03.9 - Hypothyroidism , unspecified (6) Sepsis Code(s): A41.9 - SEPSIS, UNSPECIFIED ORGANISM Qualifiers: Sepsis type: sepsis due to unspecified organism Sepsis acute organ dysfunction status: without acute organ dysfunction Qualified Code(s): A41.9 - Sepsis, unspecified organism d/c telemetry
[2018-12-29] MEDS: RIVAROXABAN 20 MG TABLET PO SCH (17:41)
[2018-12-30] MEDS ORDERED: MEROPENEM 1 GM VIAL (RESTRICTED TO ID) IVPB ONE ×3 (01:10→20:19)
[2018-12-30] MEDS ORDERED: DEXTROSE 5%-WATER 100 ML IVPB ONE ×3 (01:10→20:19)
[2018-12-30] MEDS: MEROPENEM 1 GM in DEXTROSE 5%-WATER 100 ML IVPB SCH ×3 (02:06→21:10)
[2018-12-30] MEDS: LEVOTHYROXINE NA 125 MCG TABLET (FP) PO SCH (06:24)
[2018-12-30 08:25] LABS: HEMATOCRIT 34.5 % (32.4-45.2); HEMOGLOBIN 10.9 GM/dL (10.7-15.3); MCH 29.2 pg (25.7-33.7); MCHC 31.7 g/dl (32.0-36.0); MEAN CELL VOLUME 92.1 fl (80-96); MEAN PLT VOLUME 8.2 fl (7.5-11.1); PLATELET COUNT 402 K/MM3 (134-434); RBC 3.74 M/mm3 (3.60-5.2); RDW 16.7 % (11.6-15.6); WHITE BLOOD COUNT 13.2 K/mm3 (4.0-10.0)
[2018-12-30 09:07] LABS: BLOOD UREA NITROGEN 16.2 mg/dL (7-18); CALCIUM 8.8 mg/dL (8.5-10.1); CREATININE 1.2 mg/dL (0.55-1.3); MAGNESIUM 2.5 mg/dL (1.8-2.4); PHOSPHOROUS 3.5 mg/dL (2.5-4.9); POTASSIUM 4.1 mmol/L (3.5-5.1)
[2018-12-30] MEDS: FERROUS SO4 325 MG TABLET (FP) PO SCH ×2 (10:07→21:10)
[2018-12-30] MEDS: POTASSIUM CHLORIDE ORAL LIQUID 20 MEQ/15 ML PO SCH ×2 (10:07→21:10)
--- NOTE | 2018-12-30 11:28 | PN ---
Teaching Attending Note Name of Resident: Connor Mills ATTENDING PHYSICIAN STATEMENT I saw and evaluated the patient. I reviewed the resident's note and discussed the case with the resident. I agree with the resident's findings and plan as documented. SUBJECTIVE: SOB resolved, LLE pain/redness improving. Fevers resolved OBJECTIVE: fever resolved. Hemodynamically Stable Last Vital Signs Temp Pulse Resp BP Pulse Ox 98.1 F 110 H 18 153/59 L 97 12/30/18 06:00 12/30/18 06:00 12/30/18 06:00 12/30/18 06:00 12/29/18 21:00 HEART: Irregular LUNGS: Clear to auscultation ABDOMEN: High BMI. Soft, non-tender, non-distended, normal BS EXTREMITIES: LE edema ++ (much improved), chronic venous stasis changes, L>R. LLE erythema +. Laboratory Results - last 24 hr 12/29/18 12/30/18 12/30/18 16:30 08:10 08:10 WBC 13.2 H RBC 3.74 Hgb 10.9 Hct 34.5 MCV 92.1 MCH 29.2 MCHC 31.7 L RDW 16.7 H Plt Count 402 D MPV 8.2 Sodium Potassium Chloride Carbon Dioxide Anion Gap BUN Creatinine Est GFR (CKD-EPI)AfAm Est GFR (CKD-EPI)NonAf Random Glucose Calcium Phosphorus Magnesium Random Vancomycin 17.9 L Vancomycin Pre-Dose 46.3 H* 12/30/18 08:10 WBC RBC Hgb Hct MCV MCH MCHC RDW Plt Count MPV Sodium 135 L Potassium 4.1 Chloride 96 L Carbon Dioxide 34 H Anion Gap 5 L BUN 16.2 Creatinine 1.2 Est GFR (CKD-EPI)AfAm 51.20 Est GFR (CKD-EPI)NonAf 44.17 Random Glucose 107 H Calcium 8.8 Phosphorus 3.5 Magnesium 2.5 H Random Vancomycin Vancomycin Pre-Dose Current Medications Generic Name Dose Route Start Last Admin Trade Name Freq PRN Reason Stop Dose Admin Acetaminophen 650 mg 12/26/18 07:06 12/29/18 06:59 Tylenol - PO 650 mg Q6H PRN Administration Fever Or Pain Chlorhexidine Gluconate 1 applic 12/25/18 21:00 12/29/18 20:00 Hibiclens For Decolonization - TP 1 applic HS@2100 ALYSSA Administration Diltiazem HCl 10 mg 12/26/18 07:06 Cardizem Injection - IVPUSH Q4H PRN TACHYCARDIA Docusate Sodium 100 mg 12/26/18 07:06 Colace - PO BID PRN CONSTIPATION Ferrous Sulfate 325 mg 12/26/18 10:00 12/30/18 10:07 Feosol - PO 325 mg BID ALYSSA Administration Furosemide 40 mg 12/26/18 10:00 12/29/18 09:32 Lasix Injection - IVPUSH 40 mg DAILY ALYSSA Administration Meropenem 1 gm/ Dextrose 100 mls @ 200 mls/hr 12/26/18 14:30 12/30/18 10:07 IVPB 200 mls/hr Q8H-IV ALYSSA Administration Vancomycin HCl 1,500 mg/ 500 mls @ 250 mls/hr 12/26/18 14:30 12/29/18 14:02 Dextrose IVPB 250 mls/hr Q24H ALYSSA Administration Protocol Lactic Acid 1 applic 12/26/18 10:00 12/29/18 09:32 Lac-Hydrin 12 TP 1 applic DAILY ALYSSA Administration Levothyroxine Sodium 125 mcg 12/27/18 07:00 12/30/18 06:24 Synthroid - PO 125 mcg DAILY@0700 ALYSSA Administration Metoprolol Succinate 100 mg 12/26/18 10:00 12/30/18 10:07 Toprol Xl - PO 100 mg DAILY ALYSSA Administration Potassium Chloride 20 meq 12/26/18 10:00 12/30/18 10:07 Potassium Chloride Oral Liquid PO 20 meq BID ALYSSA Administration Rivaroxaban 20 mg 12/26/18 18:00 12/29/18 17:41 Xarelto PO 20 mg DAILY@1800 ALYSSA Administration Spironolactone 25 mg 12/26/18 07:06 12/29/18 06:28 Aldactone - PO 25 mg MOWEFR [facility] Administration Home Medications Medication Instructions Recorded Levothyroxine Sodium [Synthroid] 125 mcg PO DAILY 04/10/17 Rivaroxaban [Xarelto -] 20 mg PO HS 04/10/17 Albuterol Sulfate Inhaler - 1 - 2 inh PO Q6H PRN #1 inhaler 11/28/18 [Ventolin HFA Inhaler -] Doxycycline Hyclate 100 mg PO BID #7 tablet 11/28/18 Metoprolol Succinate [Toprol XL -] 100 mg PO DAILY #30 tab.sr.24h 11/28/18 Prednisone See Taper PO DAILY #42 tablet 11/28/18 Spironolactone [Aldactone] 25 mg PO MOWEFR #20 tablet 11/28/18 Amiodarone HCl 200 mg PO DAILY 12/22/18 Amlodipine Besylate 10 mg PO DAILY 12/22/18 Furosemide 80 mg PO TUTHSA 12/22/18 Levothyroxine [Synthroid -] 112 mcg PO DAILY 12/22/18 Metformin HCl [Glucophage] 500 mg PO AM 12/22/18 Furosemide [Lasix -] 40 mg PO MOWEFR 12/26/18 ASSESSMENT AND PLAN: 73 year old female with a history of CAD, HTN, Hypothyroidism, Atrial Fibrillation s/p Ablation x 2, chronic diastolic heart failure, anemia, hypothyroidism, PAD, chronic venous stasis, chronic leg wounds, who presented to the ED with SOB, fever, worsening left leg swelling, redness, and weeping. 1. Severe sepsis secondary to LLE cellulitis and UTI. Cellulitis much improved, now afebrile for the first time UCx pos for EColi. Blood Cx neg x 6. CT LLE requested to exclude underlying abscess - no collection, soft tissue edema consistent with cellulitis. Was still spiking fevers on Cefepime, Vancomycin - changed to IV Meropenem/ Vancomycin (added 12/26). Now afebrile for > 24 hours. ID re-eval for Abx recommendations on discharge. 2. Atrial Fibrillation with RVR - rate controlled. Continue Toprol XL, Xarelto 3. Acute Hypoxic Respiratory Failure secondary to acute on chronic diastolic heart failure - improving . Will transition IV Lasix to oral Lasix 80mg daily on discharge along with Aldactone. Repeat BMP as out-patient on 01/05. 4. CAD - Continue Toprol XL 5. HTN - Continue Toprol XL, Lasix, Aldactone 6. Hypothyroidism - Continue Synthroid. TSH 3.41 7. Anemia, Iron deficiency. Iron Sat 4%, B12 726, Folate 34. No evidence of acute blood loss. Further Ix as out-patient. Fe supplementation to continue on discharge pending GI eval. 8. PAD - on Xarelto 9. Chronic venous stasis/Lymphedema - continue Wound care/Vascular Sx/Aldactone/ Lasix. DVT Px - on Xarelto
--- NOTE | 2018-12-30 12:28 | PN ---
Physical Exam: SUBJECTIVE: Patient seen and examined MARYEON. Tele showing HR up to 110s Patient endorsing improvement in LLE redness, swelling, pain OBJECTIVE: Vital Signs Period Temp Pulse Resp BP Sys/Ray Pulse Ox Last 24 Hr 98.1 F-99.6 F 78-131 18-20 105-153/59-82 97 GENERAL: The patient is awake, alert, no acute distress. HEAD: Normal with no signs of trauma. EYES: sclera anicteric, conjunctiva clear. ENT: nares patent, moist mucous membranes. NECK: Trachea midline, full range of motion, supple. LUNGS: no crackles to b/l lung bases, mild expir wheezes of lung bases b/l, no accessory muscle use. Breathing RA HEART: Regular rate and rhythm, S1, S2 without murmur, rub or gallop. ABDOMEN: Soft, nontender, no guarding, no rebound, no masses EXTREMITIES: Leg wrapped in cotton gauze and GAYLE wrap. 1+ pulses, warm, well- perfused. nonpitting edema to BLE. Mild erythema of distal LLE, improved proximal erythema of LLE. No tenderness, no warmth of LLE. Subcentimeter anterior closed distal lower leg wound w/o drainage NEUROLOGICAL: Normal speech, gait not observed. Laboratory Results - last 24 hr 12/29/18 12/30/18 12/30/18 16:30 08:10 08:10 WBC 13.2 H RBC 3.74 Hgb 10.9 Hct 34.5 MCV 92.1 MCH 29.2 MCHC 31.7 L RDW 16.7 H Plt Count 402 D MPV 8.2 Sodium Potassium Chloride Carbon Dioxide Anion Gap BUN Creatinine Est GFR (CKD-EPI)AfAm Est GFR (CKD-EPI)NonAf Random Glucose Calcium Phosphorus Magnesium Random Vancomycin 17.9 L Vancomycin Pre-Dose 46.3 H* 12/30/18 08:10 WBC RBC Hgb Hct MCV MCH MCHC RDW Plt Count MPV Sodium 135 L Potassium 4.1 Chloride 96 L Carbon Dioxide 34 H Anion Gap 5 L BUN 16.2 Creatinine 1.2 Est GFR (CKD-EPI)AfAm 51.20 Est GFR (CKD-EPI)NonAf 44.17 Random Glucose 107 H Calcium 8.8 Phosphorus 3.5 Magnesium 2.5 H Random Vancomycin Vancomycin Pre-Dose Active Medications Generic Name Dose Route Start Last Admin Trade Name Freq PRN Reason Stop Dose Admin Acetaminophen 650 mg 12/26/18 07:06 12/29/18 06:59 Tylenol - PO 650 mg Q6H PRN Administration Fever Or Pain Chlorhexidine Gluconate 1 applic 12/25/18 21:00 12/29/18 20:00 Hibiclens For Decolonization - TP 1 applic HS@2100 ALYSSA Administration Diltiazem HCl 10 mg 12/26/18 07:06 Cardizem Injection - IVPUSH Q4H PRN TACHYCARDIA Docusate Sodium 100 mg 12/26/18 07:06 Colace - PO BID PRN CONSTIPATION Ferrous Sulfate 325 mg 12/26/18 10:00 12/30/18 10:07 Feosol - PO 325 mg BID ALYSSA Administration Furosemide 40 mg 12/26/18 10:00 12/29/18 09:32 Lasix Injection - IVPUSH 40 mg DAILY ALYSSA Administration Meropenem 1 gm/ Dextrose 100 mls @ 200 mls/hr 12/26/18 14:30 12/30/18 10:07 IVPB 200 mls/hr Q8H-IV ALYSSA Administration Vancomycin HCl 1,500 mg/ 500 mls @ 250 mls/hr 12/26/18 14:30 12/29/18 14:02 Dextrose IVPB 250 mls/hr Q24H ALYSSA Administration Protocol Lactic Acid 1 applic 12/26/18 10:00 12/29/18 09:32 Lac-Hydrin 12 TP 1 applic DAILY ALYSSA Administration Levothyroxine Sodium 125 mcg 12/27/18 07:00 12/30/18 06:24 Synthroid - PO 125 mcg DAILY@0700 ALYSSA Administration Metoprolol Succinate 100 mg 12/26/18 10:00 12/30/18 10:07 Toprol Xl - PO 100 mg DAILY ALYSSA Administration Potassium Chloride 20 meq 12/26/18 10:00 12/30/18 10:07 Potassium Chloride Oral Liquid PO 20 meq BID ALYSSA Administration Rivaroxaban 20 mg 12/26/18 18:00 12/29/18 17:41 Xarelto PO 20 mg DAILY@1800 ALYSSA Administration Spironolactone 25 mg 12/26/18 07:06 12/29/18 06:28 Aldactone - PO 25 mg MOWEFR ALYSSA Administration ASSESSMENT/PLAN: 73 y/o F with PMHx of HFpEF (Echo 11/20), CAD (Cath 2 years ago, No Stents), AFib (on Xarelto), Anemia, who recently discharged from [facility] in November 2018 ( treated for AFib with RVR) presents with LLE warmth/erythema, SOB, cardiac monitoring showing Afib w/ RVR(160s). Initial lactate was 2.8 but improved to 1.6. UCX grew Ecoli(page-sensitive). Persistent fevers prompted ID rec of CT LLE which showed only cellulitis but no fluid collection. ID started cefepime+vanco , changed to meropenem+vanco dt persistent fevers. Cardio consult for Afib, rec metoprolol XL 100mg, Cardizem 10mg PRN; cw xarelto. #Sepsis 2/2 LLE cellulitis > lactic acid 2.8->1.6 > UCX: E coli(page-sensitive) > fever 102.8F on 12/23/18 > fever 101.4F on 12/25/18 > CT LLE(12/25/18): LLE cellulitis, no fluid collection noted - fu CXR, UA, UCX, BCX > UCX(12/21/18): page-sensitive Ecoli > CXR(12/23/18): marked cardiomegaly > UA(12/24/18): neg LE, neg nitrite, WBC 1 > UCX(12/24/18): NGTD > CXR(12/26/18): cardiomegaly, congestion > BCX(12/26/18): NGTD - Vanco, Zosyn (ABx course Started on 12/21) --dc'd - random [Vanco]: 10, 17.9 - ID Consulted --cw abx --cefepime + vancomycin --vancomycin dc'd on day 4 --meropenem + vancomycin --currently day 9 --pending ID recomendations #normocytic anemia > Hgb 12.4->10.3->9.9-->10.9 > MCV 93-94 - ferritin sat ~4% - ferrous sulfate 325 BID + colace #chronic BLE venous congestion -wound/vascular consult: --Elevate the lower extremity above the level of the heart at all times while at rest --Bilateral compression with gayle wraps once cellulitis has receded (wrap from metacarpal heads to below knee) --Apply Lac hydrin daily (for dry scaly skin) --Compression therapy discussed with pt at length, reports she will obtain some after discharge and see if they help --Pt may f/u with Dr Ramirez in the office within the next few weeks for reflux study #Acute CHF exacerbation --possibly 2/2 AFib with RVR > CXR(12/21/18): cardiomegaly, mildly prominen central hilar vessels > TSH ~3.41 > BNP ~2260 > weight 120kg -->111.4kg -s/p IV Furosemide 20mg x1 in ED; Continue with 40mg IV QD -cw home Spironolactone 25mg M// -Monitor Daily weights, I&Os, Cr #AFib with RVR > EKG: rate 160s > EKG(12/23/18): rate 90s > Recent Echo (11/20) reveals Preserved EF > TSH 3.4 - cardio consult: --metoprolol XL 100mg, Cardizem 10mg PRN --xarelto 20mg QD #hypothryoidism - levothryoxine 125mcg QD #GEMMA, 2/2 heart failure > baseline ~ 1.0, Cr 1.2 - trend Cr #HTN -Continue Furosemide, Metoprolol Succinate, Spironolactone #FEN -No standing fluids -Replete lytes PRN -diabetic/fat controlled diet #PPx -DVT: xarelto Dispo: Tele Visit type - Emergency Visit Emergency Visit: No - New Patient This patient is new to me today: No - Critical Care Critical Care patient: No ATTENDING PHYSICIAN STATEMENT I saw and evaluated the patient. I reviewed the resident's note and discussed the case with the resident. I agree with the resident's findings and plan as documented. SUBJECTIVE: OBJECTIVE: ASSESSMENT AND PLAN:
[2018-12-30] MEDS: FUROSEMIDE 40 MG/4 ML INJECTABLE VIAL IVPUSH SCH (12:30)
[2018-12-30] MEDS: AMMONIUM LACTATE 12% LOTION 225 GM BOTTLE TP SCH (12:30)
--- NOTE | 2018-12-30 12:47 | PN ---
Progress Note, Physician - Current Medication List Current Medications: Active Medications Acetaminophen (Tylenol -) 650 mg PO Q6H PRN PRN Reason: Fever Or Pain Last Admin: 12/29/18 06:59 Dose: 650 mg Chlorhexidine Gluconate (Hibiclens For Decolonization -) 1 applic TP HS@2100 [facility] Last Admin: 12/29/18 20:00 Dose: 1 applic Diltiazem HCl (Cardizem Injection -) 10 mg IVPUSH Q4H PRN PRN Reason: TACHYCARDIA Docusate Sodium (Colace -) 100 mg PO BID PRN PRN Reason: CONSTIPATION Ferrous Sulfate (Feosol -) 325 mg PO BID [facility] Last Admin: 12/30/18 10:07 Dose: 325 mg Furosemide (Lasix Injection -) 40 mg IVPUSH DAILY [facility] Last Admin: 12/29/18 09:32 Dose: 40 mg Meropenem 1 gm/ Dextrose 100 mls @ 200 mls/hr IVPB Q8H-IV [facility] Last Admin: 12/30/18 10:07 Dose: 200 mls/hr Vancomycin HCl 1,500 mg/ (Dextrose) 500 mls @ 250 mls/hr IVPB Q24H [facility]; Protocol Last Admin: 12/29/18 14:02 Dose: 250 mls/hr Lactic Acid (Lac-Hydrin 12) 1 applic TP DAILY [facility] Last Admin: 12/29/18 09:32 Dose: 1 applic Levothyroxine Sodium (Synthroid -) 125 mcg PO DAILY@0700 [facility] Last Admin: 12/30/18 06:24 Dose: 125 mcg Metoprolol Succinate (Toprol Xl -) 100 mg PO DAILY [facility] Last Admin: 12/30/18 10:07 Dose: 100 mg Potassium Chloride (Potassium Chloride Oral Liquid) 20 meq PO BID [facility] Last Admin: 12/30/18 10:07 Dose: 20 meq Rivaroxaban (Xarelto) 20 mg PO DAILY@1800 [facility] Last Admin: 12/29/18 17:41 Dose: 20 mg Spironolactone (Aldactone -) 25 mg PO MOWEFR [facility] Last Admin: 12/29/18 06:28 Dose: 25 mg - Objective Vital Signs: Vital Signs Temperature 98.1 F 12/30/18 06:00 Pulse Rate 110 H 12/30/18 06:00 Respiratory Rate 18 12/30/18 06:00 Blood Pressure 153/59 L 12/30/18 06:00 O2 Sat by Pulse Oximetry (%) 97 12/29/18 21:00 Labs: CBC, BMP 12/30/18 08:10 12/30/18 08:10 INR, PTT INR 1.34 (0.83-1.09) H 12/21/18 12:00
[2018-12-30] MEDS: VANCOMYCIN HCL 1,500 MG in DEXTROSE 5%-WATER - 500 ML IVPB SCH (16:50)
[2018-12-30] MEDS ORDERED: VANCOMYCIN HCL 1,500 MG in DEXTROSE 5%-WATER - 500 ML IVPB SCH ×2 (17:00→19:15)
[2018-12-30] MEDS: CHLORHEXIDINE GLUCONATE 4% CLEANSER FOR DECOLONIZATION TP SCH ×2 (20:41→20:42)
[2018-12-31] MEDS ORDERED: DEXTROSE 5%-WATER 100 ML IVPB ONE ×2 (01:03→09:11)
[2018-12-31] MEDS ORDERED: MEROPENEM 1 GM VIAL (RESTRICTED TO ID) IVPB ONE ×2 (01:03→09:11)
[2018-12-31] MEDS: MEROPENEM 1 GM in DEXTROSE 5%-WATER 100 ML IVPB SCH ×3 (03:29→18:39)
[2018-12-31] MEDS: SPIRONOLACTONE 25 MG TABLET (FP) PO SCH (06:10)
[2018-12-31] MEDS: LEVOTHYROXINE NA 125 MCG TABLET (FP) PO SCH (06:10)
[2018-12-31 07:26] LABS: BASO % 0.2 % (0-2.0); EOS % 0.6 % (0-4.5); HEMOGLOBIN 10.9 GM/dL (10.7-15.3); LYMPH % 21.2 % (8-40); MCH 29.5 pg (25.7-33.7); MEAN CELL VOLUME 92.1 fl (80-96); MEAN PLT VOLUME 8.1 fl (7.5-11.1); PLATELET COUNT 464 K/MM3 (134-434); RBC 3.69 M/mm3 (3.60-5.2); RDW 16.7 % (11.6-15.6); WHITE BLOOD COUNT 11.8 K/mm3 (4.0-10.0)
[2018-12-31 08:09] LABS: BLOOD UREA NITROGEN 16.2 mg/dL (7-18); CALCIUM 8.8 mg/dL (8.5-10.1); CREATININE 1.2 mg/dL (0.55-1.3); MAGNESIUM 2.6 mg/dL (1.8-2.4); PHOSPHOROUS 3.6 mg/dL (2.5-4.9); POTASSIUM 4.6 mmol/L (3.5-5.1)
[2018-12-31] MEDS ORDERED: PT OWN MED DRAWER 7, Y5N ONE (09:12)
[2018-12-31] MEDS: FUROSEMIDE 40 MG/4 ML INJECTABLE VIAL IVPUSH SCH (09:23)
[2018-12-31] MEDS: FERROUS SO4 325 MG TABLET (FP) PO SCH ×2 (09:23→21:14)
[2018-12-31] MEDS: POTASSIUM CHLORIDE ORAL LIQUID 20 MEQ/15 ML PO SCH ×2 (09:23→21:14)
[2018-12-31] MEDS: AMMONIUM LACTATE 12% LOTION 225 GM BOTTLE TP SCH (09:26)
--- NOTE | 2018-12-31 11:49 | PN ---
Progress Note, Physician History of Present Illness: doing well leg looks much better - Current Medication List Current Medications: Active Medications Acetaminophen (Tylenol -) 650 mg PO Q6H PRN PRN Reason: Fever Or Pain Last Admin: 12/29/18 06:59 Dose: 650 mg Chlorhexidine Gluconate (Hibiclens For Decolonization -) 1 applic TP HS@2100 [facility] Last Admin: 12/30/18 20:42 Dose: Not Given Diltiazem HCl (Cardizem Injection -) 10 mg IVPUSH Q4H PRN PRN Reason: TACHYCARDIA Docusate Sodium (Colace -) 100 mg PO BID PRN PRN Reason: CONSTIPATION Ferrous Sulfate (Feosol -) 325 mg PO BID [facility] Last Admin: 12/31/18 09:23 Dose: 325 mg Furosemide (Lasix Injection -) 40 mg IVPUSH DAILY [facility] Last Admin: 12/31/18 09:23 Dose: 40 mg Meropenem 1 gm/ Dextrose 100 mls @ 200 mls/hr IVPB Q8H-IV [facility] Last Admin: 12/31/18 09:23 Dose: 200 mls/hr Vancomycin HCl 1,500 mg/ (Dextrose) 500 mls @ 250 mls/hr IVPB Q24H [facility]; Protocol Last Admin: 12/30/18 19:11 Dose: 250 mls/hr Lactic Acid (Lac-Hydrin 12) 1 applic TP DAILY [facility] Last Admin: 12/31/18 09:26 Dose: 1 applic Levothyroxine Sodium (Synthroid -) 125 mcg PO DAILY@0700 [facility] Last Admin: 12/31/18 06:10 Dose: 125 mcg Metoprolol Succinate (Toprol Xl -) 100 mg PO DAILY [facility] Last Admin: 12/31/18 09:23 Dose: 100 mg Potassium Chloride (Potassium Chloride Oral Liquid) 20 meq PO BID [facility] Last Admin: 12/31/18 09:23 Dose: 20 meq Rivaroxaban (Xarelto) 20 mg PO DAILY@1800 [facility] Last Admin: 12/29/18 17:41 Dose: 20 mg Spironolactone (Aldactone -) 25 mg PO MOWEFR [facility] Last Admin: 12/31/18 06:10 Dose: 25 mg - Objective Vital Signs: Vital Signs Temperature 97.7 F 12/31/18 10:00 Pulse Rate 95 H 12/31/18 10:00 Respiratory Rate 18 12/31/18 10:00 Blood Pressure 120/60 12/31/18 10:00 O2 Sat by Pulse Oximetry (%) 98 12/31/18 09:00 Constitutional: Yes: No Distress, Calm Cardiovascular: Yes: S1, S2 Respiratory: Yes: Regular, CTA Bilaterally Gastrointestinal: Yes: Normal Bowel Sounds, Soft Musculoskeletal: Yes: WNL Extremities: Yes: Erythema (resolving), Other Neurological: Yes: Alert, Oriented Psychiatric: Yes: Alert, Oriented Labs: CBC, BMP 12/31/18 07:00 12/31/18 07:00 INR, PTT INR 1.34 (0.83-1.09) H 12/21/18 12:00 Assessment/Plan Problem List - Problems (1) Afib Code(s): I48.91 - UNSPECIFIED ATRIAL FIBRILLATION Qualifiers: Atrial fibrillation type: other persistent Qualified Code(s): I48.19 - Other persistent atrial fibrillation (2) CHF exacerbation Code(s): I50.9 - HEART FAILURE, UNSPECIFIED Qualifiers: Heart failure type: diastolic Qualified Code(s): I50.33 - Acute on chronic diastolic (congestive) heart failure (3) Cellulitis Code(s): L03.90 - CELLULITIS, UNSPECIFIED Qualifiers: Site of cellulitis: extremity Site of cellulitis of extremity: lower extremity Laterality: left Qualified Code(s): L03.116 - Cellulitis of left lower limb (4) HTN (hypertension) Code(s): I10 - ESSENTIAL (PRIMARY) HYPERTENSION Qualifiers: Hypertension type: essential hypertension Qualified Code(s): I10 - Essential (primary) hypertension (5) Hypothyroid Code(s): E03.9 - HYPOTHYROIDISM, UNSPECIFIED Qualifiers: Hypothyroidism type: unspecified Qualified Code(s): E03.9 - Hypothyroidism , unspecified (6) Sepsis Code(s): A41.9 - SEPSIS, UNSPECIFIED ORGANISM Qualifiers: Sepsis type: sepsis due to unspecified organism Sepsis acute organ dysfunction status: without acute organ dysfunction Qualified Code(s): A41.9 - Sepsis, unspecified organism (7) Swelling of lower leg Code(s): M79.89 - OTHER SPECIFIED SOFT TISSUE DISORDERS 8 cellulitis of the left lower leg plan can be switched to oral doxy for another week elevation of leg
--- NOTE | 2018-12-31 11:53 | PN ---
Progress Note, Physician History of Present Illness: 73 yr old woman with PMH of diastolic CHF, anemia, Afib (s/p 2 ablations, currently on xarelto), hypothyroid, PVD and CAD, chronic venous stasis, chronic lower extremity wounds who presents to the ER with SOB, subjective fevers, worsening left leg swelling, redness, and weeping from her wounds. She denies chest pain, palpitations, near or true syncope, orthopnea, PND. - Current Medication List Current Medications: Active Medications Acetaminophen (Tylenol -) 650 mg PO Q6H PRN PRN Reason: Fever Or Pain Last Admin: 12/29/18 06:59 Dose: 650 mg Chlorhexidine Gluconate (Hibiclens For Decolonization -) 1 applic TP HS@2100 [facility] Last Admin: 12/30/18 20:42 Dose: Not Given Diltiazem HCl (Cardizem Injection -) 10 mg IVPUSH Q4H PRN PRN Reason: TACHYCARDIA Docusate Sodium (Colace -) 100 mg PO BID PRN PRN Reason: CONSTIPATION Ferrous Sulfate (Feosol -) 325 mg PO BID [facility] Last Admin: 12/31/18 09:23 Dose: 325 mg Furosemide (Lasix Injection -) 40 mg IVPUSH DAILY [facility] Last Admin: 12/31/18 09:23 Dose: 40 mg Meropenem 1 gm/ Dextrose 100 mls @ 200 mls/hr IVPB Q8H-IV ALYSSA Last Admin: 12/31/18 09:23 Dose: 200 mls/hr Vancomycin HCl 1,500 mg/ (Dextrose) 500 mls @ 250 mls/hr IVPB Q24H [facility]; Protocol Last Admin: 12/30/18 19:11 Dose: 250 mls/hr Lactic Acid (Lac-Hydrin 12) 1 applic TP DAILY [facility] Last Admin: 12/31/18 09:26 Dose: 1 applic Levothyroxine Sodium (Synthroid -) 125 mcg PO DAILY@0700 [facility] Last Admin: 12/31/18 06:10 Dose: 125 mcg Metoprolol Succinate (Toprol Xl -) 100 mg PO DAILY [facility] Last Admin: 12/31/18 09:23 Dose: 100 mg Potassium Chloride (Potassium Chloride Oral Liquid) 20 meq PO BID [facility] Last Admin: 12/31/18 09:23 Dose: 20 meq Rivaroxaban (Xarelto) 20 mg PO DAILY@1800 [facility] Last Admin: 12/29/18 17:41 Dose: 20 mg Spironolactone (Aldactone -) 25 mg PO MOWE [facility] Last Admin: 12/31/18 06:10 Dose: 25 mg - Objective Vital Signs: Vital Signs Temperature 97.7 F 12/31/18 10:00 Pulse Rate 95 H 12/31/18 10:00 Respiratory Rate 18 12/31/18 10:00 Blood Pressure 120/60 12/31/18 10:00 O2 Sat by Pulse Oximetry (%) 98 12/31/18 09:00 Eyes: Yes: WNL, Conjunctiva Clear, EOM Intact HENT: Yes: WNL, Atraumatic, Normocephalic Neck: Yes: WNL, Supple, Trachea Midline Cardiovascular: Yes: WNL, Regular Rate and Rhythm Respiratory: Yes: WNL, Regular, CTA Bilaterally Gastrointestinal: Yes: WNL, Normal Bowel Sounds Genitourinary: Yes: WNL Musculoskeletal: Yes: WNL Extremities: Yes: WNL, Erythema Edema: Yes Integumentary: Yes: WNL Neurological: Yes: WNL, Alert, Oriented ...Motor Strength: WNL Psychiatric: Yes: WNL Labs: CBC, BMP 12/31/18 07:00 12/31/18 07:00 INR, PTT INR 1.34 (0.83-1.09) H 12/21/18 12:00 Assessment/Plan - Problems (1) Morbid obesity Code(s): E66.01 - MORBID (SEVERE) OBESITY DUE TO EXCESS CALORIES (2) Afib Assessment/Plan: EKG: AF with controlled VR Telelmetry: AF with controlled VR. Continue metoprolol ER for HR control (has diltiazem IVP as prn backup). On DOAC for anticoagulation. ECHO: normal LVEF; abnormal diastolic compliacne; borderline dilated LA. Weight loss would be of benefit for overall health, as well as specifically aid to lessening CHF and AF episodes. Code(s): I48.91 - UNSPECIFIED ATRIAL FIBRILLATION Qualifiers: Atrial fibrillation type: other persistent Qualified Code(s): I48.19 - Other persistent atrial fibrillation (3) Cellulitis Assessment/Plan: On antibiotics per ID. (Pt believes "fleas" from her cats were the cause of her leg probelmes, begtinning 4 years ago). Code(s): L03.90 - CELLULITIS, UNSPECIFIED Qualifiers: Site of cellulitis: extremity Site of cellulitis of extremity: lower extremity Laterality: left Qualified Code(s): L03.116 - Cellulitis of left lower limb (4) HTN (hypertension) Code(s): I10 - ESSENTIAL (PRIMARY) HYPERTENSION Qualifiers: Hypertension type: essential hypertension Qualified Code(s): I10 - Essential (primary) hypertension (5) Hypothyroid Code(s): E03.9 - HYPOTHYROIDISM, UNSPECIFIED Qualifiers: Hypothyroidism type: unspecified Qualified Code(s): E03.9 - Hypothyroidism , unspecified (6) Sepsis Code(s): A41.9 - SEPSIS, UNSPECIFIED ORGANISM Qualifiers: Sepsis type: sepsis due to unspecified organism Sepsis acute organ dysfunction status: without acute organ dysfunction Qualified Code(s): A41.9 - Sepsis, unspecified organism d/c telemetry
--- NOTE | 2018-12-31 13:45 | PN ---
Teaching Attending Note Name of Resident: Connor Mills ATTENDING PHYSICIAN STATEMENT I saw and evaluated the patient. I reviewed the resident's note and discussed the case with the resident. I agree with the resident's findings and plan as documented. SUBJECTIVE: SOB resolved, LLE pain/redness improving. Fevers resolved. OBJECTIVE: Fever resolved. Hemodynamically Stable Last Vital Signs Temp Pulse Resp BP Pulse Ox 97.7 F 95 H 18 120/60 98 12/31/18 10:00 12/31/18 10:00 12/31/18 10:00 12/31/18 10:00 12/31/18 09:00 HEART: Irregular LUNGS: Clear to auscultation ABDOMEN: High BMI. Soft, non-tender, non-distended, normal BS EXTREMITIES: LE edema ++ (much improved), chronic venous stasis changes, L>R. LLE erythema improving. Laboratory Results - last 24 hr 12/31/18 12/31/18 07:00 07:00 WBC 11.8 H RBC 3.69 Hgb 10.9 Hct 34.0 MCV 92.1 MCH 29.5 MCHC 32.0 RDW 16.7 H Plt Count 464 H MPV 8.1 Absolute Neuts (auto) 8.3 H Neutrophils % 70.0 Lymphocytes % 21.2 D Monocytes % 8.0 Eosinophils % 0.6 Basophils % 0.2 Nucleated RBC % 0 Sodium 137 Potassium 4.6 Chloride 99 Carbon Dioxide 32 Anion Gap 7 L BUN 16.2 Creatinine 1.2 Est GFR (CKD-EPI)AfAm 51.20 Est GFR (CKD-EPI)NonAf 44.17 Random Glucose 93 Calcium 8.8 Phosphorus 3.6 Magnesium 2.6 H Current Medications Generic Name Dose Route Start Last Admin Trade Name Freq PRN Reason Stop Dose Admin Acetaminophen 650 mg 12/26/18 07:06 12/29/18 06:59 Tylenol - PO 650 mg Q6H PRN Administration Fever Or Pain Chlorhexidine Gluconate 1 applic 12/25/18 21:00 12/30/18 20:42 Hibiclens For Decolonization - TP Not Given HS@2100 ALYSSA Diltiazem HCl 10 mg 12/26/18 07:06 Cardizem Injection - IVPUSH Q4H PRN TACHYCARDIA Docusate Sodium 100 mg 12/26/18 07:06 Colace - PO BID PRN CONSTIPATION Ferrous Sulfate 325 mg 10/25/19 10:00 12/31/18 09:23 Feosol - PO 325 mg BID ALYSSA Administration Furosemide 40 mg 12/26/18 10:00 12/31/18 09:23 Lasix Injection - IVPUSH 40 mg DAILY ALYSSA Administration Meropenem 1 gm/ Dextrose 100 mls @ 200 mls/hr 12/26/18 14:30 12/31/18 09:23 IVPB 200 mls/hr Q8H-IV ALYSSA Administration Vancomycin HCl 1,500 mg/ 500 mls @ 250 mls/hr 12/30/18 19:15 12/30/18 19:11 Dextrose IVPB 250 mls/hr Q24H ALYSSA Administration Protocol Lactic Acid 1 applic 12/26/18 10:00 12/31/18 09:26 Lac-Hydrin 12 TP 1 applic DAILY ALYSSA Administration Levothyroxine Sodium 125 mcg 12/27/18 07:00 12/31/18 06:10 Synthroid - PO 125 mcg DAILY@0700 ALYSSA Administration Metoprolol Succinate 100 mg 12/26/18 10:00 12/31/18 09:23 Toprol Xl - PO 100 mg DAILY ALYSSA Administration Potassium Chloride 20 meq 12/26/18 10:00 12/31/18 09:23 Potassium Chloride Oral Liquid PO 20 meq BID ALYSSA Administration Rivaroxaban 20 mg 12/26/18 18:00 12/29/18 17:41 Xarelto PO 20 mg DAILY@1800 ALYSSA Administration Spironolactone 25 mg 12/26/18 07:06 12/31/18 06:10 Aldactone - PO 25 mg MOWEFR ALYSSA Administration ASSESSMENT AND PLAN: 73 year old female with a history of CAD, HTN, Hypothyroidism, Atrial Fibrillation s/p Ablation x 2, chronic diastolic heart failure, anemia, hypothyroidism, PAD, chronic venous stasis, chronic leg wounds, who presented to the ED with SOB, fever, worsening left leg swelling, redness, and weeping. 1. Severe sepsis secondary to LLE cellulitis and UTI. Cellulitis much improved, now afebrile for > 48 hours UCx pos for EColi. Blood Cx neg x 6. CT LLE - no collection, soft tissue edema consistent with cellulitis. Was still spiking fevers on Cefepime, Vancomycin - changed to IV Meropenem/ Vancomycin (added 10/25). Now afebrile for > 48 hours. ID recommends discharge on oral Doxycycline for 7 additional days. 2. Atrial Fibrillation with RVR - rate controlled. Continue Toprol XL, Xarelto 3. Acute Hypoxic Respiratory Failure secondary to acute on chronic diastolic heart failure - improving . Will transition IV Lasix to oral Lasix 80mg daily on discharge along with Aldactone. Repeat BMP as out-patient on 01/05. 4. CAD - Continue Toprol XL 5. HTN - Continue Toprol XL, Lasix, Aldactone 6. Hypothyroidism - Continue Synthroid. TSH 3.41 7. Anemia, Iron deficiency. Iron Sat 4%, B12 726, Folate 34. No evidence of acute blood loss. Further Ix as out-patient. Fe supplementation to continue on discharge pending GI out-patient eval. 8. PAD - on Xarelto 9. Chronic venous stasis/Lymphedema - continue Wound care/Vascular Sx/Aldactone/ Lasix. DVT Px - on Xarelto Medically optimized for discharge with Wound Care, GI, ID, Cardiology follow ups.
[2018-12-31 15:39] VITALS: BMI 44.8
--- NOTE | 2018-12-31 18:39 | PN ---
Physical Exam: SUBJECTIVE: Patient seen and examined NAEON. Endorse no pain at LLE OBJECTIVE: Vital Signs Period Temp Pulse Resp BP Sys/Ray Pulse Ox Last 24 Hr 97.7 F-98.8 F 87-101 18-18 103-127/60-90 98-100 GENERAL: The patient is awake, alert, no acute distress. HEAD: Normal with no signs of trauma. EYES: sclera anicteric, conjunctiva clear. ENT: nares patent, moist mucous membranes. NECK: Trachea midline, full range of motion, supple. LUNGS: no crackles to b/l lung bases, mild expir wheezes of lung bases b/l, no accessory muscle use. Breathing RA HEART: Regular rate and rhythm, S1, S2 without murmur, rub or gallop. ABDOMEN: Soft, nontender, no guarding, no rebound, no masses EXTREMITIES: Leg wrapped in cotton gauze and GAYLE wrap. 1+ pulses, warm, well- perfused. nonpitting edema to BLE. Mild erythema of distal LLE, improved proximal erythema of LLE. No tenderness, no warmth of LLE. Subcentimeter anterior closed distal lower leg wound w/o drainage NEUROLOGICAL: Normal speech, gait not observed. Laboratory Results - last 24 hr 12/31/18 12/31/18 07:00 07:00 WBC 11.8 H RBC 3.69 Hgb 10.9 Hct 34.0 MCV 92.1 MCH 29.5 MCHC 32.0 RDW 16.7 H Plt Count 464 H MPV 8.1 Absolute Neuts (auto) 8.3 H Neutrophils % 70.0 Lymphocytes % 21.2 D Monocytes % 8.0 Eosinophils % 0.6 Basophils % 0.2 Nucleated RBC % 0 Sodium 137 Potassium 4.6 Chloride 99 Carbon Dioxide 32 Anion Gap 7 L BUN 16.2 Creatinine 1.2 Est GFR (CKD-EPI)AfAm 51.20 Est GFR (CKD-EPI)NonAf 44.17 Random Glucose 93 Calcium 8.8 Phosphorus 3.6 Magnesium 2.6 H Active Medications Generic Name Dose Route Start Last Admin Trade Name Freq PRN Reason Stop Dose Admin Acetaminophen 650 mg 12/26/18 07:06 12/29/18 06:59 Tylenol - PO 650 mg Q6H PRN Administration Fever Or Pain Chlorhexidine Gluconate 1 applic 12/25/18 21:00 12/30/18 20:42 Hibiclens For Decolonization - TP Not Given HS@2100 [facility] Diltiazem HCl 10 mg 12/26/18 07:06 Cardizem Injection - IVPUSH Q4H PRN TACHYCARDIA Docusate Sodium 100 mg 12/26/18 07:06 Colace - PO BID PRN CONSTIPATION Doxycycline Hyclate 100 mg 12/31/18 22:00 Vibramycin - PO 01/07/19 21:59 BID [facility] Ferrous Sulfate 325 mg 12/26/18 10:00 12/31/18 09:23 Feosol - PO 325 mg BID ALYSSA Administration Furosemide 80 mg 01/01/19 10:00 Lasix - PO DAILY [facility] Lactic Acid 1 applic 12/26/18 10:00 12/31/18 09:26 Lac-Hydrin 12 TP 1 applic DAILY ALYSSA Administration Levothyroxine Sodium 125 mcg 12/27/18 07:00 12/31/18 06:10 Synthroid - PO 125 mcg DAILY@0700 ALYSSA Administration Metoprolol Succinate 100 mg 12/26/18 10:00 12/31/18 09:23 Toprol Xl - PO 100 mg DAILY ALYSSA Administration Potassium Chloride 20 meq 12/26/18 10:00 12/31/18 09:23 Potassium Chloride Oral Liquid PO 20 meq BID ALYSSA Administration Rivaroxaban 20 mg 12/26/18 18:00 12/29/18 17:41 Xarelto PO 20 mg DAILY@1800 ALYSSA Administration Spironolactone 25 mg 12/26/18 07:06 12/31/18 06:10 Aldactone - PO 25 mg MOWEFR ALYSSA Administration ASSESSMENT/PLAN: 73 y/o F with PMHx of HFpEF (Echo 11/20), CAD (Cath 2 years ago, No Stents), AFib (on Xarelto), Anemia, who recently discharged from [facility] in November 2018 ( treated for AFib with RVR) presents with LLE warmth/erythema, SOB, cardiac monitoring showing Afib w/ RVR(160s). Initial lactate was 2.8 but improved to 1.6. UCX grew Ecoli(page-sensitive). Persistent fevers prompted ID rec of CT LLE which showed only cellulitis but no fluid collection. ID started cefepime+vanco , changed to meropenem+vanco dt persistent fevers. Cardio consult for Afib, rec metoprolol XL 100mg, Cardizem 10mg PRN; cw xarelto. ID converted IV abx to doxycycline x7d. #Sepsis 2/2 LLE cellulitis > lactic acid 2.8->1.6 > UCX: E coli(page-sensitive) > fever 102.8F on 12/23/18 > fever 101.4F on 12/25/18 > CT LLE(12/25/18): LLE cellulitis, no fluid collection noted - fu CXR, UA, UCX, BCX > UCX(12/21/18): page-sensitive Ecoli > CXR(12/23/18): marked cardiomegaly > UA(12/24/18): neg LE, neg nitrite, WBC 1 > UCX(12/24/18): NGTD > CXR(12/26/18): cardiomegaly, congestion > BCX(12/26/18): NGTD - Vanco, Zosyn (ABx course Started on 12/21) --dc'd - random [Vanco]: 10, 17.9 - ID Consulted --cw abx --cefepime + vancomycin --vancomycin dc'd on day 4 --meropenem + vancomycin --currently day 10 --converted to doxycycline x7d #normocytic anemia > Hgb 12.4->10.3->9.9-->10.9 > MCV 93-94 - ferritin sat ~4% - ferrous sulfate 325 BID + colace #chronic BLE venous congestion -wound/vascular consult: --Elevate the lower extremity above the level of the heart at all times while at rest --Bilateral compression with gayle wraps once cellulitis has receded (wrap from metacarpal heads to below knee) --Apply Lac hydrin daily (for dry scaly skin) --Compression therapy discussed with pt at length, reports she will obtain some after discharge and see if they help --Pt may f/u with Dr Ramirez in the office within the next few weeks for reflux study #Acute CHF exacerbation --possibly 2/2 AFib with RVR > CXR(12/21/18): cardiomegaly, mildly prominen central hilar vessels > TSH ~3.41 > BNP ~2260 > weight 120kg -->111.4kg -s/p IV Furosemide 20mg x1 in ED; convert to home 80mg PO QD -cw home Spironolactone 25mg // -Monitor Daily weights, I&Os, Cr #AFib with RVR > EKG: rate 160s > EKG(12/23/18): rate 90s > Recent Echo (11/20) reveals Preserved EF > TSH 3.4 - cardio consult: --metoprolol XL 100mg, Cardizem 10mg PRN --xarelto 20mg QD #hypothryoidism - levothryoxine 125mcg QD #GEMMA, 2/2 heart failure > baseline ~ 1.0, Cr 1.2 - trend Cr #HTN -Continue Furosemide, Metoprolol Succinate, Spironolactone #FEN -No standing fluids -Replete lytes PRN -diabetic/fat controlled diet #PPx -DVT: xarelto Dispo: -dc plan: SNF Visit type - Emergency Visit Emergency Visit: No - New Patient This patient is new to me today: No - Critical Care Critical Care patient: No ATTENDING PHYSICIAN STATEMENT I saw and evaluated the patient. I reviewed the resident's note and discussed the case with the resident. I agree with the resident's findings and plan as documented. SUBJECTIVE: OBJECTIVE: ASSESSMENT AND PLAN:
[2018-12-31] MEDS: DOXYCYCLINE HYCLATE 100 MG CAPSULE PO SCH (19:01)
[2018-12-31] MEDS: CHLORHEXIDINE GLUCONATE 4% CLEANSER FOR DECOLONIZATION TP SCH (21:10)
[2019-01-01] MEDS ORDERED: RIVAROXABAN 20 MG TABLET PO ONE (00:04)
[2019-01-01] MEDS: LEVOTHYROXINE NA 125 MCG TABLET (FP) PO SCH (06:12)
[2019-01-01 07:20] LABS: HEMATOCRIT 33.8 % (32.4-45.2); HEMOGLOBIN 10.9 GM/dL (10.7-15.3); MCH 29.9 pg (25.7-33.7); MCHC 32.4 g/dl (32.0-36.0); MEAN CELL VOLUME 92.5 fl (80-96); MEAN PLT VOLUME 8.2 fl (7.5-11.1); PLATELET COUNT 469 K/MM3 (134-434); RBC 3.66 M/mm3 (3.60-5.2); RDW 16.5 % (11.6-15.6); WHITE BLOOD COUNT 9.9 K/mm3 (4.0-10.0)
[2019-01-01 07:40] LABS: BLOOD UREA NITROGEN 18.1 mg/dL (7-18); CALCIUM 8.8 mg/dL (8.5-10.1); CREATININE 1.2 mg/dL (0.55-1.3); MAGNESIUM 2.6 mg/dL (1.8-2.4); PHOSPHOROUS 3.7 mg/dL (2.5-4.9); POTASSIUM 4.5 mmol/L (3.5-5.1)
[2019-01-01] MEDS ORDERED: FUROSEMIDE 40 MG TABLET (FP) PO SCH (10:00)
--- NOTE | 2019-01-01 10:01 | PN ---
Progress Note, Physician History of Present Illness: stable no new issues - Current Medication List Current Medications: Active Medications Acetaminophen (Tylenol -) 650 mg PO Q6H PRN PRN Reason: Fever Or Pain Last Admin: 12/29/18 06:59 Dose: 650 mg Chlorhexidine Gluconate (Hibiclens For Decolonization -) 1 applic TP HS@2100 [facility] Last Admin: 12/31/18 21:10 Dose: Not Given Diltiazem HCl (Cardizem Injection -) 10 mg IVPUSH Q4H PRN PRN Reason: TACHYCARDIA Docusate Sodium (Colace -) 100 mg PO BID PRN PRN Reason: CONSTIPATION Doxycycline Hyclate (Vibramycin -) 100 mg PO BID@1000,1800 [facility] Last Admin: 12/31/18 19:01 Dose: 100 mg Ferrous Sulfate (Feosol -) 325 mg PO BID [facility] Last Admin: 12/31/18 21:14 Dose: 325 mg Furosemide (Lasix -) 80 mg PO DAILY [facility] Lactic Acid (Lac-Hydrin 12) 1 applic TP DAILY [facility] Last Admin: 12/31/18 09:26 Dose: 1 applic Levothyroxine Sodium (Synthroid -) 125 mcg PO DAILY@0700 [facility] Last Admin: 01/01/19 06:12 Dose: 125 mcg Metoprolol Succinate (Toprol Xl -) 100 mg PO DAILY [facility] Last Admin: 12/31/18 09:23 Dose: 100 mg Potassium Chloride (Potassium Chloride Oral Liquid) 20 meq PO BID [facility] Last Admin: 12/31/18 21:14 Dose: 20 meq Rivaroxaban (Xarelto) 20 mg PO DAILY@1800 [facility] Last Admin: 12/29/18 17:41 Dose: 20 mg Spironolactone (Aldactone -) 25 mg PO MOWEFR [facility] Last Admin: 12/31/18 06:10 Dose: 25 mg - Objective Vital Signs: Vital Signs Temperature 98.1 F 01/01/19 06:00 Pulse Rate 99 H 01/01/19 06:00 Respiratory Rate 17 01/01/19 06:00 Blood Pressure 109/68 01/01/19 06:00 O2 Sat by Pulse Oximetry (%) 98 12/31/18 21:00 Constitutional: Yes: No Distress, Calm Cardiovascular: Yes: S1, S2 Respiratory: Yes: Regular, CTA Bilaterally Gastrointestinal: Yes: Normal Bowel Sounds, Soft Extremities: Yes: Erythema (resolved), Other Neurological: Yes: Alert, Oriented Psychiatric: Yes: Alert, Oriented Labs: CBC, BMP 01/01/19 06:50 01/01/19 06:00 INR, PTT INR 1.34 (0.83-1.09) H 12/21/18 12:00 Assessment/Plan Problem List - Problems (1) Afib Code(s): I48.91 - UNSPECIFIED ATRIAL FIBRILLATION Qualifiers: Atrial fibrillation type: other persistent Qualified Code(s): I48.19 - Other persistent atrial fibrillation (2) CHF exacerbation Code(s): I50.9 - HEART FAILURE, UNSPECIFIED Qualifiers: Heart failure type: diastolic Qualified Code(s): I50.33 - Acute on chronic diastolic (congestive) heart failure (3) Cellulitis Code(s): L03.90 - CELLULITIS, UNSPECIFIED Qualifiers: Site of cellulitis: extremity Site of cellulitis of extremity: lower extremity Laterality: left Qualified Code(s): L03.116 - Cellulitis of left lower limb (4) HTN (hypertension) Code(s): I10 - ESSENTIAL (PRIMARY) HYPERTENSION Qualifiers: Hypertension type: essential hypertension Qualified Code(s): I10 - Essential (primary) hypertension (5) Hypothyroid Code(s): E03.9 - HYPOTHYROIDISM, UNSPECIFIED Qualifiers: Hypothyroidism type: unspecified Qualified Code(s): E03.9 - Hypothyroidism , unspecified (6) Sepsis Code(s): A41.9 - SEPSIS, UNSPECIFIED ORGANISM Qualifiers: Sepsis type: sepsis due to unspecified organism Sepsis acute organ dysfunction status: without acute organ dysfunction Qualified Code(s): A41.9 - Sepsis, unspecified organism (7) Swelling of lower leg Code(s): M79.89 - OTHER SPECIFIED SOFT TISSUE DISORDERS 8 cellulitis of the left lower leg plan can be switched to oral doxy for another week elevation of leg
[2019-01-01] MEDS: AMMONIUM LACTATE 12% LOTION 225 GM BOTTLE TP SCH (10:04)
[2019-01-01] MEDS: FERROUS SO4 325 MG TABLET (FP) PO SCH (10:04)
[2019-01-01] MEDS: DOXYCYCLINE HYCLATE 100 MG CAPSULE PO SCH (10:04)
[2019-01-01] MEDS: POTASSIUM CHLORIDE ORAL LIQUID 20 MEQ/15 ML PO SCH (10:04)
[2019-01-01 10:32] VITALS: BP 107/67; PULSE 92; TEMP 97.8
--- NOTE | 2019-01-01 13:27 | DS ---
Physical Exam: SUBJECTIVE: Patient seen and examined OBJECTIVE: Vital Signs Period Temp Pulse Resp BP Sys/Ray Pulse Ox Last 24 Hr 97.8 F-98.8 F 87-114 17-18 107-130/60-90 98-98 PHYSICAL EXAM GENERAL: The patient is awake, alert, and fully oriented, in no acute distress. HEAD: Normal with no signs of trauma. EYES: PERRL, extraocular movements intact, sclera anicteric, conjunctiva clear. ENT: Ears normal, nares patent, oropharynx clear without exudates, moist mucous membranes. NECK: Trachea midline, full range of motion, supple. LUNGS: Breath sounds equal, clear to auscultation bilaterally, no wheezes, no crackles, no accessory muscle use. HEART: Regular rate and rhythm, S1, S2 without murmur, rub or gallop. ABDOMEN: Soft, nontender, nondistended, normoactive bowel sounds, no guarding, no rebound, no hepatosplenomegaly, no masses. EXTREMITIES: 2+ pulses, warm, well-perfused, no edema. NEUROLOGICAL: Cranial nerves II through XII grossly intact. Normal speech, gait not observed. PSYCH: Normal mood, normal affect. SKIN: Warm, dry, normal turgor, no rashes or lesions noted. LABS Laboratory Results - last 24 hr 01/01/19 01/01/19 06:00 06:50 WBC 9.9 RBC 3.66 Hgb 10.9 Hct 33.8 MCV 92.5 MCH 29.9 MCHC 32.4 RDW 16.5 H Plt Count 469 H MPV 8.2 Sodium 138 Potassium 4.5 Chloride 99 Carbon Dioxide 33 H Anion Gap 6 L BUN 18.1 H Creatinine 1.2 Est GFR (CKD-EPI)AfAm 51.20 Est GFR (CKD-EPI)NonAf 44.17 Random Glucose 98 Calcium 8.8 Phosphorus 3.7 Magnesium 2.6 H HOSPITAL COURSE: Date of Admission:12/21/18 Date of Discharge: 01/01/19 Discharge Summary Problems reviewed: Yes Reason For Visit: ACUTE CHRONIC CONGESTIVE HRT FAILURE; ARIAL FIBRIL Condition: Stable - Instructions Diet, Activity, Other Instructions: Your visit You were admitted to the hospital because you had infection of the left leg. An infectious disease doctor was consulted and you were treated with IV antibiotics. Your legs were also noted to be swollen, this was likely because of your heart failure. You received extra doses of the water pill (Lasix) and the swelling improved. You were also noted to be anemic and started on iron supplement, Ferrous sulfate. Please note that this medication may cause black stools and constipation. You may take stool softeners, such as Colace as needed for constipation. Medications Please take the following medications as prescribed: 1. Doxycycline 100mg twice a day for 7 days. 2. Ferrous sulfate 325mg twice a day. 3. Colace 100mg twice a day as needed for constipation. Please note the following changes to your medications: 1. Lasix 80mg daily. Please continue taking all your medications as prescribed. Follow up Please follow up with your primary care doctor (Dr. Estrada) within 1 week. You need a repeat blood work on 01/05 to check your kidney function and electrolytes. Please follow up with vascular surgery, Dr. Ramirez, at the wound care clinic for further management of your leg wounds. You have an appointment at the wound care clinic on Jan.09, at 10:30am. Please follow up with your poster, Dr. Burleson within 1 week. Please follow with [facility] Dr. Beard for further investigation of your iron deficiency anemia. Additional info Please call 911 or go to the ED if with any worsening fevers, chills, headache, dizziness, chest pain, shortness of breath, abdominal pain, diarrhea, or any new concerns noted. Referrals: Wanda Escoto MD [Staff Physician] - Jimena Beard MD [Staff Physician] - 2 Weeks (Iron deficiency anemia) Ousmane Estrada [Primary Care Provider] - Benjamin Burleson MD [Staff Physician] - Giovanni Ramirez DO [Staff Physician] - 01/09/19 10:30 am Disposition: LONGTERM FACILITY - Home Medications Comprehensive Discharge Medication List: Ambulatory Orders Levothyroxine Sodium [Synthroid] 125 mcg PO DAILY 04/10/17 Rivaroxaban [Xarelto -] 20 mg PO HS 04/10/17 Albuterol Sulfate Inhaler - [Ventolin HFA Inhaler -] 1 - 2 inh PO Q6H PRN #1 inhaler 11/28/18 Metoprolol Succinate [Toprol XL -] 100 mg PO DAILY #30 tab.sr.24h 11/28/18 Spironolactone [Aldactone] 25 mg PO MOWEFR #20 tablet 11/28/18 Metformin HCl [Glucophage] 500 mg PO AM 12/22/18 Docusate Sodium [Colace -] 100 mg PO BID PRN #60 capsule 12/31/18 Doxycycline Monohydrate [Monodox] 100 mg PO Q12H #14 capsule 12/31/18 Ferrous Sulfate [Feosol] 325 mg PO BID #60 ud 12/31/18 Furosemide [Lasix -] 80 mg PO DAILY #60 tablet 12/31/18 - Discharge Referral Referred to [facility] No ATTENDING PHYSICIAN STATEMENT I saw and evaluated the patient. I reviewed the resident's note and discussed the case with the resident. I agree with the resident's findings and plan as documented. SUBJECTIVE: OBJECTIVE: ASSESSMENT AND PLAN:
--- NOTE | 2019-01-01 16:47 | PN ---
Teaching Attending Note Name of Resident: Connor Mills ATTENDING PHYSICIAN STATEMENT I saw and evaluated the patient. I reviewed the resident's note and discussed the case with the resident. I agree with the resident's findings and plan as documented. SUBJECTIVE: SOB resolved, LLE pain/redness improving. Fevers resolved. OBJECTIVE: Fever resolved. Hemodynamically Stable Last Vital Signs Temp Pulse Resp BP Pulse Ox 97.8 F 92 H 18 107/67 98 01/01/19 10:00 01/01/19 10:00 01/01/19 10:00 01/01/19 10:00 01/01/19 09:00 HEART: Irregular LUNGS: Clear to auscultation ABDOMEN: High BMI. Soft, non-tender, non-distended, normal BS EXTREMITIES: LE edema ++ (much improved), chronic venous stasis changes, L>R. LLE erythema improving. Laboratory Results - last 24 hr 01/01/19 01/01/19 06:00 06:50 WBC 9.9 RBC 3.66 Hgb 10.9 Hct 33.8 MCV 92.5 MCH 29.9 MCHC 32.4 RDW 16.5 H Plt Count 469 H MPV 8.2 Sodium 138 Potassium 4.5 Chloride 99 Carbon Dioxide 33 H Anion Gap 6 L BUN 18.1 H Creatinine 1.2 Est GFR (CKD-EPI)AfAm 51.20 Est GFR (CKD-EPI)NonAf 44.17 Random Glucose 98 Calcium 8.8 Phosphorus 3.7 Magnesium 2.6 H Discharge Medications Medication Instructions Recorded Levothyroxine Sodium [Synthroid] 125 mcg PO DAILY 04/10/17 Rivaroxaban [Xarelto -] 20 mg PO HS 04/10/17 Albuterol Sulfate Inhaler - 1 - 2 inh PO Q6H PRN #1 inhaler 11/28/18 [Ventolin HFA Inhaler -] Metoprolol Succinate [Toprol XL -] 100 mg PO DAILY #30 tab.sr.24h 11/28/18 Spironolactone [Aldactone] 25 mg PO MOWEFR #20 tablet 11/28/18 Metformin HCl [Glucophage] 500 mg PO AM 12/22/18 Docusate Sodium [Colace -] 100 mg PO BID PRN #60 capsule 12/31/18 Doxycycline Monohydrate [Monodox] 100 mg PO Q12H #14 capsule 12/31/18 Ferrous Sulfate [Feosol] 325 mg PO BID #60 ud 12/31/18 Furosemide [Lasix -] 80 mg PO DAILY #60 tablet 12/31/18 ASSESSMENT AND PLAN: 73 year old female with a history of CAD, HTN, Hypothyroidism, Atrial Fibrillation s/p Ablation x 2, chronic diastolic heart failure, anemia, hypothyroidism, PAD, chronic venous stasis, chronic leg wounds, who presented to the ED with SOB, fever, worsening left leg swelling, redness, and weeping. 1. Severe sepsis secondary to LLE cellulitis and UTI. Cellulitis much improved, now afebrile for > 3 days UCx pos for EColi. Blood Cx neg x 6. CT LLE - no collection, soft tissue edema consistent with cellulitis. Was still spiking fevers on Cefepime, Vancomycin - changed to IV Meropenem/ Vancomycin (added 12/26). Now afebrile for > 3 days ID recommends discharge on oral Doxycycline for 7 additional days. 2. Atrial Fibrillation with RVR - rate controlled. Continue Toprol XL, Xarelto 3. Acute Hypoxic Respiratory Failure secondary to acute on chronic diastolic heart failure - improving . To continue oral Lasix 80mg daily on discharge along with Aldactone. Repeat BMP as out-patient on 01/05. 4. CAD - Continue Toprol XL 5. HTN - Continue Toprol XL, Lasix, Aldactone 6. Hypothyroidism - Continue Synthroid. TSH 3.41 7. Anemia, Iron deficiency. Iron Sat 4%, B12 726, Folate 34. No evidence of acute blood loss. Further Ix as out-patient. Fe supplementation to continue on discharge pending GI out-patient eval. 8. PAD - on Xarelto 9. Chronic venous stasis/Lymphedema - continue Wound care/Vascular Sx/Aldactone/ Lasix. DVT Px - on Xarelto Medically optimized for discharge with Wound Care, GI, ID, Cardiology follow ups.
== END 2019-01-01 11:45 | DRG 871 ==
LOC: JER 11:17 → JERBED 12:15 → J4W 14:37 → J7W 12-30 19:21
PROVIDERS: ADMIT Internal Medicine
DX: A41.51 Sepsis due to Escherichia coli [E. coli] (principal); I50.33 Acute on chronic diastolic (congestive) heart failure; J96.01 Acute respiratory failure with hypoxia; L03.116 Cellulitis of left lower limb; I48.19 Other persistent atrial fibrillation; Z68.41 Body mass index [BMI] 40.0-44.9, adult; N17.9 Acute kidney failure, unspecified; N39.0 Urinary tract infection, site not specified; R65.20 Severe sepsis without septic shock; E87.70 Fluid overload, unspecified; E03.9 Hypothyroidism, unspecified; E78.00 Pure hypercholesterolemia, unspecified; I11.0 Hypertensive heart disease with heart failure; I25.10 Atherosclerotic heart disease of native coronary artery without angina pectoris; I73.9 Peripheral vascular disease, unspecified; D72.829 Elevated white blood cell count, unspecified; R00.0 Tachycardia, unspecified; E66.01 Morbid (severe) obesity due to excess calories; M79.89 Other specified soft tissue disorders
CPT/HCPCS: 36415; 36600; 71045-TC-FY; 73700-TC-RT; 80048; 80053; 81003; 82375; 82607; 82728; 82746; 82803; 83050; 83540; 83550; 83605; 83735; 83880; 84100; 84443; 84484; 85025; 85027; 85610; 85730; 87040; 87086; 87186; 93005; 93010; 93970-TC; 94660; 97116-GP; 97161-GP; 99284-25; G0480; J0131

== ENCOUNTER 2019-01-31 18:49 | Inpatient (IN) | payer OTHER ==
--- NOTE | 2019-01-31 19:39 | PDOC ---
History of Present Illness - General Chief Complaint: Shortness of Breath Stated Complaint: FEVER & CONFUSION Time Seen by Provider: 01/31/19 19:39 - History of Present Illness Initial Comments: HPI: 73yo F with PMH of CHF, afib (xarelto), BLE chronic venous stasis, hypothyroidism presenting with fever and shortness of breath. Patient's daughters are at the bedside providing collateral history. They state patient came home from rehab about four weeks ago. Since that time her shortness of breath has been progressively worsening especially with exertion and when she lays flat. Patient has been adherent to her medications, including lasix 40mg BID. Is not on a fluid restricted diet. Saw her warehouse puller on Saturday and was told she had a pleural effusion on chest xray. PCP: Dr. Ramu Mathur: Does not remember the name Cardio: Stephloyda GI: Kisha ROS: Constitutional: +fever, +chills HEENT: no throat pain, no dysphagia Cardiovascular: no chest pain, no palpitations Respiratory: no cough, +shortness of breath Gastrointestinal: no abdominal pain, no nausea Genitourinary: no dysuria, no hematuria Musculoskeletal: no myalgia, no arthralgia Skin: no rash, no itching Neurologic: no headache, no syncope PE: General: Awake, alert, and oriented x 2 (states her name/age, the place, and the month correctly, but says the year is "2017"), with rigors Head: No signs of trauma Eyes: EOMI, sclera anicteric ENT: Moist mucus membranes Neck: Normal ROM, supple Lungs: Crackles on the left with poor inspiratory effort Cardio: Irregular rhythm, S1 and S2 present Abdomen: Soft, nontender Extremities: Distal pulses present SKIN: Warm, Dry, normal turgor Neurologic: Cranial nerves II through XII grossly intact. Normal speech ED Course/MDM: DDX including but not limited to SIRS, sepsis due to PNA/UTI/bacteremia/viral illness VS significant for fever and tachycardia Septic workup initiated 01/31/19 19:39 EKG: rate 143, QTc 478, afib with rvr Patient very difficult access. US-guided IV placed after three attempts CXR with congestive changes with possible infiltrate Decision made to treat for HAP with vanc/zosyn/azithromycin 01/31/19 21:58 CBC WBC 15.2 K/mm3 (4.0-10.0) H 01/31/19 21:08 RBC 4.33 M/mm3 (3.60-5.2) 01/31/19 21:08 Hgb 13.0 GM/dL (10.7-15.3) 01/31/19 21:08 Hct 40.8 % (32.4-45.2) D 01/31/19 21:08 MCV 94.2 fl (80-96) 01/31/19 21:08 MCH 30.1 pg (25.7-33.7) 01/31/19 21:08 MCHC 31.9 g/dl (32.0-36.0) L 01/31/19 21:08 RDW 18.2 % (11.6-15.6) H 01/31/19 21:08 Plt Count 240 K/MM3 (134-434) D 01/31/19 21:08 MPV 10.0 fl (7.5-11.1) D 01/31/19 21:08 Absolute Neuts (auto) 13.6 K/mm3 (1.5-8.0) H 01/31/19 21:08 Neutrophils % 89.6 % (42.8-82.8) H D 01/31/19 21:08 Lymphocytes % 5.8 % (8-40) L D 01/31/19 21:08 Monocytes % 4.0 % (3.8-10.2) 01/31/19 21:08 Eosinophils % 0.1 % (0-4.5) D 01/31/19 21:08 Basophils % 0.5 % (0-2.0) 01/31/19 21:08 Nucleated RBC % 0 % (0-0) 01/31/19 21:08 Leukocytosis CMP Sodium 140 mmol/L (136-145) 01/31/19 21:56 Potassium 4.3 mmol/L (3.5-5.1) 01/31/19 21:56 Chloride 106 mmol/L (98-107) 01/31/19 21:56 Carbon Dioxide 24 mmol/L (21-32) 01/31/19 21:56 Anion Gap 10 MMOL/L (8-16) 01/31/19 21:56 BUN 16.7 mg/dL (7-18) 01/31/19 21:56 Creatinine 1.2 mg/dL (0.55-1.3) 01/31/19 21:56 Est GFR (CKD-EPI)AfAm 51.20 01/31/19 21:56 Est GFR (CKD-EPI)NonAf 44.17 01/31/19 21:56 Random Glucose 167 mg/dL (74-106) H 01/31/19 21:56 Lactic Acid 2.6 mmol/L (0.4-2.0) H* 01/31/19 21:19 Calcium 9.3 mg/dL (8.5-10.1) 01/31/19 21:56 Total Bilirubin 0.9 mg/dL (0.2-1) 01/31/19 21:56 AST 67 U/L (15-37) H 01/31/19 21:56 ALT 121 U/L (13-61) H 01/31/19 21:56 Alkaline Phosphatase 115 U/L (45-117) 01/31/19 21:56 Troponin I 0.02 ng/ml (0.00-0.05) 01/31/19 21:56 B-Natriuretic Peptide 3964.2 pg/ml (5-450) H 01/31/19 21:56 Total Protein 8.1 g/dl (6.4-8.2) 01/31/19 21:56 Albumin 3.4 g/dl (3.4-5.0) 01/31/19 21:56 Electrolytes unremarkable Cr normal Transaminitis Tpn undetectable BNP elevated, highest it has ever been Lasix ordered for fluid overload Patient with elevated lactate of 2.6, however, since she is fluid overloaded, we will hold off on fluids for now Lopressor for rate control of afib with rvr 01/31/19 22:42 UTI present Rate is now 117 Admission indicated for sepsis, CHF exacerbation, afib with RVR due to hemodynamic instability, parenteral antimicrobial regimen that must be implemented on inpatient basis 01/31/19 23:[address] Oden who accepted patient for telemetry admission under Dr. Huggins 01/31/19 23:45 Past History - Past Medical History Allergies/Adverse Reactions: Allergies Allergy/AdvReac Type Severity Reaction Status Date / Time shrimp Allergy Hives Verified 01/31/19 19:06 Home Medications: Ambulatory Orders Levothyroxine Sodium [Synthroid] 125 mcg PO DAILY 04/10/17 Rivaroxaban [Xarelto -] 20 mg PO HS 04/10/17 Albuterol Sulfate Inhaler - [Ventolin HFA Inhaler -] 1 - 2 inh PO Q6H PRN #1 inhaler 11/28/18 Metoprolol Succinate [Toprol XL -] 100 mg PO DAILY #30 tab.sr.24h 11/28/18 Spironolactone [Aldactone] 25 mg PO MOWEFR #20 tablet 11/28/18 Metformin HCl [Glucophage] 500 mg PO AM 12/22/18 Ferrous Sulfate [Feosol] 325 mg PO BID #60 ud 12/31/18 Furosemide [Lasix -] 80 mg PO DAILY #60 tablet 12/31/18 Ipratropium 0.02% Nebulizer [Atrovent] 1 neb NEB QID 01/31/19 Ipratropium [place] [Atrovent Hfa] 2.5 gm IH QID PRN 01/31/19 Anemia: No Asthma: No Cancer: No Cardiac Disorders: Yes (afib, CHF) CVA: No COPD: No CHF: Yes Dementia: No Diabetes: No GI Disorders: No Disorders: No HTN: Yes Hypercholesterolemia: Yes Liver Disease: No Seizures: No Thyroid Disease: Yes (hypo) - Surgical History Abdominal Surgery: No Appendectomy: No Cardiac Surgery: Yes (Cardioversion x 2, Cardiac Cath x 1) Cholecystectomy: No Lung Surgery: No Neurologic Surgery: No Orthopedic Surgery: (rt rotator cuff repair) - Psycho Social/Smoking Cessation Hx Smoking History: Never smoked Have you smoked in the past 12 months: No If you are a former smoker, when did you quit?: 40 yrs ago Hx Alcohol Use: No Drug/Substance Use Hx: No Substance Use Type: None Hx Substance Use Treatment: No *Physical Exam - Vital Signs Last Vital Signs Temp Pulse Resp BP Pulse Ox 101.7 F H 129 H 24 H 185/120 H 96 01/31/19 19:04 01/31/19 19:04 01/31/19 19:04 01/31/19 19:04 01/31/19 19:04 ED Treatment Course - LABORATORY CBC & Chemistry Diagram: 01/31/19 21:08 01/31/19 21:56 Discharge - Discharge Information Problems reviewed: Yes Clinical Impression/Diagnosis: Atrial fibrillation with RVR, UTI (urinary tract infection), bacterial CHF exacerbation Qualifiers: Heart failure type: unspecified Qualified Code(s): I50.9 - Heart failure, unspecified Condition: Guarded - Admission Yes - Follow up/Referral - Patient Discharge Instructions - Post Discharge Activity
[2019-01-31] MEDS ORDERED: ACETAMINOPHEN 1000 MG/100 ML VIAL (NON FORMULARY) IVPB ONE (19:51)
--- NOTE | 2019-01-31 19:55 | PDOC ---
Attending Attestation - Resident Resident Name: Goldie Lu - ED Attending Attestation I have performed the following: I have examined & evaluated the patient, The case was reviewed & discussed with the resident, I agree w/resident's findings & plan, Exceptions are as noted
[2019-01-31] MEDS ORDERED: ACETAMINOPHEN INJECTION 100 ML IVPB ONE (20:35)
[2019-01-31 21:21] LABS: BASO % 0.5 % (0-2.0); EOS % 0.1 % (0-4.5); HEMATOCRIT 40.8 % (32.4-45.2); LYMPH % 5.8 % (8-40); MCH 30.1 pg (25.7-33.7); MCHC 31.9 g/dl (32.0-36.0); MEAN CELL VOLUME 94.2 fl (80-96); NEUT % 89.6 % (42.8-82.8); PLATELET COUNT 240 K/MM3 (134-434); RBC 4.33 M/mm3 (3.60-5.2); RDW 18.2 % (11.6-15.6); WHITE BLOOD COUNT 15.2 K/mm3 (4.0-10.0)
[2019-01-31 21:28] LABS: VENOUS PC02 36.5 mmHg (38-52); VENOUS PH 7.43 (7.31-7.41)
[2019-01-31 21:32] LABS: INR 1.51 (0.83-1.09); PROTHROMBIN TIME (PATIENT) 17.9 SEC (9.7-13.0)
[2019-01-31 21:35] LABS: ACTIVATED PTT 33.4 SECONDS (25.2-36.5)
[2019-01-31] MEDS ORDERED: AZITHROMYCIN IVPB 500 MG in DEXTROSE 5%-WATER - 250 ML IVPB ONE (21:51)
[2019-01-31] MEDS ORDERED: VANCOMYCIN 1,000 MG in DEXTROSE 5%-WATER - 250 ML IVPB ONE (21:51)
[2019-01-31] MEDS ORDERED: PIPERACILLIN/TAZOB 4.5 GM 4.5 GM in DEXTROSE 5%-WATER 100 ML IVPB ONE (21:51)
--- NOTE | 2019-01-31 22:03 | PDOC ---
Documentation entered by Gayle Arreola SCRIBE, acting as scribe for Ana Olsen MD. Ana Olsen MD: This documentation has been prepared by the Elba yang Xhesika, SCRIBE, under my direction and personally reviewed by me in its entirety. I confirm that the documentation accurately reflects all work, treatment, procedures, and medical decision making performed by me. Attending Attestation - Resident Resident Name: Goldie Lu - ED Attending Attestation I have performed the following: I have examined & evaluated the patient, The case was reviewed & discussed with the resident, I agree w/resident's findings & plan, Exceptions are as noted - HPI HPI: 01/31/19 19:53 Ms. Zheng is a 73 y/o F with PMHx of CHF (Echo 11/20), CAD (Cath 2 years ago, No Stents), AFib (on Xarelto), Anemia who has had recurrent admissions for CHF, most recently discharged from [facility] in December 2018 (treated for AFib, CHF, and Cellulitis). Pt presents to the ER with a complaint of fevers since this morning and progressive shortness of breath Pt was discharged from the hospital and was sent to rehab. She left rehab before she was scheduled to leave. Since that time, her shortness of breath has progressively worsened, reports JANG and Orthopnea No chest pain, no palpitations Patient reports medication compliance. She was seen by her perinatal instructor on Saturday, x ray revealed pleual effusion, pt was told to continue her medications and that she will need a follow up ECHO. No dysuria No abdominal pain, diarrhea, nausea or vomiting No rash No recent medication changes, sick contacts. 01/31/19 19:55 01/31/19 21:55 01/31/19 21:59 - Physicial Exam PE: 01/31/19 21:58 PE: General: Awake, alert, and fully oriented, in no acute distress, seated up in stretcher, no complaints Head: Nml Eyes: EOMI, sclera anicteric ENT: Moist mucus membranes Neck: Normal ROM, supple Lungs: Lungs clear, Normal breath sounds Cardio: Regular rhythm, S1 and S2 present Abdomen: Soft, nontender. No guarding, no rebound, no masses Extremities: Normal range of motion, Distal pulses present SKIN: Warm, Dry, normal turgor Neurologic: Cranial nerves II through XII grossly intact. Normal speech - Medical Decision Making 01/31/19 21:50 73 yo F h/o CHF presenting with a complaint of progressively worsening shortness of breath and fevers Pt denies focal complaint/source She does note shortness of breath but this has progressively worsened over the past few weeks Laboratory Tests 01/31/19 01/31/19 21:08 21:19 WBC 15.2 H Hgb 13.0 Hct 40.8 D Plt Count 240 D VBG pH 7.43 H POC VBG pCO2 36.5 L POC VBG pO2 50.0 H EKG: fib rate of 143 bpm, xis nml, intervals nml, no st elevation or depression , t waves upright 01/31/19 22:01 01/31/19 23:04 Laboratory Tests 01/31/19 01/31/19 21:19 21:56 BUN 16.7 Creatinine 1.2 Lactic Acid 2.6 H* AST 67 H ALT 121 H Troponin I 0.02 B-Natriuretic Peptide 3964.2 H Chest x-ray appears to show fluid overload The left base is unclear, ? Infiltrate We will treat for pneumonia given fever We will diurese for CHF We will plan to admit 01/31/19 23:05 Ordered for metoprolol IV given A. fib with RVR 01/31/19 23:28 Laboratory Tests 01/31/19 22:50 Urine Blood 2+ H Urine Nitrite Positive H Ur Leukocyte Esterase Negative Urine Bacteria (Auto) 1561.9 Clinical Impression: possible pneumonia, initial presentation UTI, initial presentation CHF, initial presentation
[2019-01-31] MEDS ORDERED: ALBUTEROL SO4 2.5/IPRATROPIUM 0.5 INH SOL 3 ML VIAL.NEB. NEB ONE ×2 (22:08→22:38)
[2019-01-31] MEDS ORDERED: METOPROLOL TARTRATE 5 MG/5 ML VIAL IVPUSH ONE (22:28)
[2019-01-31] MEDS ORDERED: METOPROLOL TARTRATE 5 MG/5 ML VIAL ONE ×3 (22:38→22:41)
[2019-01-31] MEDS ORDERED: AZITHROMYCIN IVPB 500 MG/250 ML BAG IVPB ONE (22:39)
[2019-01-31] MEDS ORDERED: VANCOMYCIN 1 GRAM (PRE-DOCKED) 1,000 MG/250 ML BAG IVPB ONE (22:39)
[2019-01-31] MEDS ORDERED: PIPERACILLIN/TAZOB 4.5 GM 4.5 GM/100 ML BAG IVPB ONE (22:39)
[2019-01-31 22:40] LABS: ALBUMIN 3.4 g/dl (3.4-5.0); BILIRUBIN,TOTAL 0.9 mg/dL (0.2-1); BLOOD UREA NITROGEN 16.7 mg/dL (7-18); CALCIUM 9.3 mg/dL (8.5-10.1); CREATININE 1.2 mg/dL (0.55-1.3); N-TERMINAL BNP 3964.2 pg/ml (5-450); POTASSIUM 4.3 mmol/L (3.5-5.1); TOT PROT 8.1 g/dl (6.4-8.2)
[2019-01-31] MEDS ORDERED: FUROSEMIDE 40 MG/4 ML INJECTABLE VIAL IVPUSH ONE (22:42)
[2019-01-31] MEDS ORDERED: FUROSEMIDE 40 MG/4 ML INJECTABLE VIAL ONE (22:45)
[2019-01-31 23:11] LABS: EPI CELLS 11.8 /HPF (0-5/HPF); HYALINE CASTS 18 /lpf (0-8); URINE APPEARANCE CLOUDY; URINE BACTERIA 1561.9 /hpf (NEGATIVE); URINE BILIRUBIN NEGATIVE (NEGATIVE); URINE COLOR YELLOW; URINE GLUCOSE (UA) TRACE (NEGATIVE); URINE KETONE TRACE (NEGATIVE); URINE LEUK ESTERASE NEGATIVE (NEGATIVE); URINE NITRITE POSITIVE (NEGATIVE); URINE PROTEIN 3+ (NEGATIVE); URINE RBC 3 /hpf (0-4); URINE UROBILINOGEN 0.2 mg/dL (0.2-1.0); URINE WBC 9 /hpf (0-5)
[2019-02-01] MEDS ORDERED: VANCOMYCIN 1 GRAM (PRE-DOCKED) 1,000 MG/250 ML BAG IVPB ONE (00:17)
--- NOTE | 2019-02-01 00:39 | HP ---
CHIEF COMPLAINT: SOB and fever PCP: Dr. [facility]allpa [facility] Aide- Dr. Lebron, Door Maker- ANDRE Long HISTORY OF PRESENT ILLNESS: 73 y/o F, pmh of CHF(Echo 11/20 normal LVEF), CAD(cath 2 yrs ago, no stents placed), A-fib on xeralto, hx of multiple CHF exacerbation requiring hospitalization, hypothyroidism, BLE chronic venous stasis presents today w/ SOB , tachy at 110's, and fever of 101.7F. Pt reports that her symptoms began today morning while she was at rest. Nothing seems to have improved her symptoms, even her home dose of Lasix 80mg did not work. She was admitted in the past on December 2018 for CHF exacerbation and cellulitis, after which she had followed up with her accounting instructor, who had worked her up extensively and found that she had significant pleural effusion and was sent home on medications. She was to f/ u with her accounting instructor this Saturday for an ECHO. She denies n/v/d/chest pain /numbness or tingling, cough, hematuria, dysuria, melena, recent travels. ER course was notable for: (1) Started on Vanc, Zosyn, Azithromycin (2) Lasix 40 given (3) CXR- Moderate degree cardiomegaly with pulmonary venous congestion. Hypoventilatory examination with bibasilar subsegmental atelectasis. No focal consolidation. Pleural contours are normal without pleural effusion or pneumothorax. Recent Travel: denies PAST MEDICAL HISTORY: CHF(Echo 11/20 normal LVEF), CAD(cath 2 yrs ago, no stents placed), A-fib on xeralto, hx of multiple CHF exacerbation requiring hospitalization, hypothyroidism, BLE chronic venous stasis PAST SURGICAL HISTORY: rotator cuff repair Social History: Smoking:denies Alcohol:denies Drugs:denies Allergies shrimp Allergy (Verified 01/31/19 19:06) Hives HOME MEDICATIONS: Home Medications Medication Instructions Recorded Levothyroxine Sodium [Synthroid] 125 mcg PO DAILY 04/10/17 Rivaroxaban [Xarelto -] 20 mg PO HS 04/10/17 Albuterol Sulfate Inhaler - 1 - 2 inh PO Q6H PRN #1 inhaler 11/28/18 [Ventolin HFA Inhaler -] Metoprolol Succinate [Toprol XL -] 100 mg PO DAILY #30 tab.sr.24h 11/28/18 Spironolactone [Aldactone] 25 mg PO MOWEFR #20 tablet 11/28/18 Metformin HCl [Glucophage] 500 mg PO AM 12/22/18 Ferrous Sulfate [Feosol] 325 mg PO BID #60 ud 12/31/18 Furosemide [Lasix -] 80 mg PO DAILY #60 tablet 12/31/18 Ipratropium 0.02% Nebulizer 1 neb NEB QID 01/31/19 [Atrovent] Ipratropium [place] [Atrovent Hfa] 2.5 gm IH QID PRN 01/31/19 REVIEW OF SYSTEMS CONSTITUTIONAL: Admits: fever, chills, Absent: diaphoresis, generalized weakness, malaise HEENT: Absent: rhinorrhea, nasal congestion, throat pain, throat swelling, difficulty swallowing, CARDIOVASCULAR: Admits: peripheral edema Absent: chest pain, syncope, palpitations, irregular heart rate, lightheadedness , RESPIRATORY: Admits: shortness of breath, dyspnea with exertion, orthopnea, wheezing Absent: cough, stridor, hemoptysis GASTROINTESTINAL: Absent: abdominal pain, abdominal distension, nausea, vomiting, diarrhea, constipation, melena, GENITOURINARY: Absent: dysuria, frequency, urgency, hesitancy, hematuria MUSCULOSKELETAL: Absent: myalgia, SKIN: Absent: rash, ENDOCRINE: Absent: unexplained weight gain, unexplained weight loss NEUROLOGIC: Absent: headache, focal weakness or paresthesias, dizziness, unsteady gait, seizure Absent: anxiety, depression, PHYSICAL EXAMINATION Vital Signs - 24 hr 01/31/19 01/31/19 01/31/19 19:04 21:54 23:00 Temperature 101.7 F H 99.1 F Pulse Rate 129 H Pulse Rate [ 115 H Apical] Respiratory 24 H 22 H Rate Blood Pressure 185/120 H 171/78 H Blood Pressure 146/65 [Left Arm] O2 Sat by Pulse 96 96 Oximetry (%) GENERAL: AOx3, Mild Distress EYES: Pupils equal, round and reactive to light, extraocular movements intact EARS, NOSE, THROAT: oropharynx clear without exudates. Moist mucous membranes. NECK: Normal range of motion, supple without lymphadenopathy LUNGS: Breath sounds equal, No wheezes. Mild crackles present. Accessory muscle use noted HEART: Tachy and irregular rhythm- Afib w/ RVR, normal S1 and S2 without murmur , rub or gallop. ABDOMEN: Soft, nontender, not distended, normoactive bowel sounds, no guarding, no rebound, no masses. MUSCULOSKELETAL: Normal range of motion at all joints. UPPER EXTREMITIES: 2+ pulses, warm, LOWER EXTREMITIES: 2+ pulses, warm, darkening of skin b/l, with thickening, scaling and swelling due to venous stasis. Increased warmth b/l. No ulcer or open wounds NEUROLOGICAL: Cranial nerves II-XII intact. PSYCHIATRIC: Cooperative. SKIN: Warm, dry, normal turgor Laboratory Results - last 24 hr 01/31/19 01/31/19 01/31/19 21:19 21:19 21:56 WBC RBC Hgb Hct MCV MCH MCHC RDW Plt Count MPV Absolute Neuts (auto) Neutrophils % Lymphocytes % Monocytes % Eosinophils % Basophils % Nucleated RBC % PT with INR INR PTT (Actin FS) VBG pH 7.43 H POC VBG pCO2 36.5 L POC VBG pO2 50.0 H VBG HCO3 23.9 VBG O2 Sat (Breana) 84.4 H VBG Base Excess 0.5 Sodium 140 Potassium 4.3 Chloride 106 Carbon Dioxide 24 Anion Gap 10 BUN 16.7 Creatinine 1.2 Est GFR (CKD-EPI)AfAm 51.20 Est GFR (CKD-EPI)NonAf 44.17 Random Glucose 167 H Lactic Acid 2.6 H* Calcium 9.3 Total Bilirubin 0.9 AST 67 H ALT 121 H Alkaline Phosphatase 115 Troponin I 0.02 B-Natriuretic Peptide 3964.2 H Total Protein 8.1 Albumin 3.4 Urine Color Urine Appearance Urine pH Ur Specific [place] Urine Protein Urine Glucose (UA) Urine Ketones Urine Blood Urine Nitrite Urine Bilirubin Urine Urobilinogen Ur Leukocyte Esterase Urine WBC (Auto) Urine RBC (Auto) Urine Casts (Auto) U Epithel Cells (Auto) Urine Bacteria (Auto) ASSESSMENT/PLAN: 73 y/o F, pmh of CHF(Echo 11/20 normal LVEF), CAD(cath 2 yrs ago, no stents placed), A-fib on xeralto, hx of multiple CHF exacerbation requiring hospitalization, hypothyroidism, BLE chronic venous stasis presents today w/ SOB , tachy at 110's, and fever of 101.7F admitted for sepsis 2/2 t likely pneumonia vs CHF exacerbation component #Sepsis likely 2/2 to pneumonia vs unknown source fever of 101.7F, tachy at 110's, Lactic acid elevated at 2.6, White count of 15.2 CXR shows no definitive infiltrates or consolidation Cefepime, vancomycin and azithro started Flu swab- f/u BCx and UCX pending Abd U/S ordered- f/u ID consult #CHF exacerbation BNP at 3964.2 Signs of fluid overload- sob, orthopnea, b/l leg swelling Hx of multiple exacerbation CXR- pulmonary venous congestion seen Lasix 40mg given now Aldactone 25mg PO Cardio consulted- Dr. Burleson #Afib w/ RVR EKG evident for A-fib w/ RVR cont Xarelto cont Toprol 100mg #Hypothyroidism cont Synthroid 125mcg TSH ordered- f/u #DM ISS #DVT ppx: On Xarelto FEN: Fluid restriction Monitor lytes Sodium controlled diets Dispo: f/u UCx in morning for source vs pneumonia, cont Lasix and reasses, f/u w / Cardio Visit type - Emergency Visit Emergency Visit: Yes ED Registration Date: 01/31/19 Care time: The patient presented to the Emergency Department on the above date and was hospitalized for further evaluation of their emergent condition. - New Patient This patient is new to me today: Yes Date on this admission: 02/06/19 - Critical Care Critical Care patient: No ATTENDING PHYSICIAN STATEMENT I saw and evaluated the patient. I reviewed the resident's note and discussed the case with the resident. I agree with the resident's findings and plan as documented. SUBJECTIVE: OBJECTIVE: ASSESSMENT AND PLAN:
--- NOTE | 2019-02-01 00:40 | PN ---
Teaching Attending Note Name of Resident: Garcia Pérez ATTENDING PHYSICIAN STATEMENT I saw and evaluated the patient. I reviewed the resident's note and discussed the case with the resident. I agree with the resident's findings and plan as documented. SUBJECTIVE: 73yo F with PMH of CHF, afib (xarelto)Status post 2 ablations, CAD, BLE chronic venous stasis, hypothyroidism presenting with fever and shortness of breath. Patient's daughters are at the bedside providing collateral history. They state patient came home from rehab about four weeks ago. Since that time her shortness of breath has been progressively worsening especially with exertion and when she lays flat. Of note patient was treated in December with IV antibiotics for left leg infection. Of note patient received vancomycin and Zosyn in the emergency room. OBJECTIVE: Last Vital Signs Temp Pulse Resp BP Pulse Ox 99.1 F 115 H 22 H 171/78 H 96 01/31/19 21:54 01/31/19 21:54 01/31/19 21:54 01/31/19 23:00 01/31/19 21:54 GENERAL: Well developed, well nourished. Awake and alert. No acute distress. HEENT: Normocephalic, atraumatic. PERRLA, EOMI. No conjunctival pallor. Sclera are non- icteric. Moist mucous membranes. NECK: Supple. Full ROM. No JVD. Carotid pulses 2+ and symmetric, without bruits. No thyromegaly. No lymphadenopathy. CARDIOVASCULAR: Regular rate and rhythm. No murmurs, rubs, or gallops. Distal pulses are 2+ and symmetric. PULMONARY: No evidence of respiratory distress. Bilateral basilar crackles on lung auscultation ABDOMINAL: Soft. Non-tender. Non-distended. No rebound or guarding. No organomegaly. Normoactive bowel sounds. MUSCULOSKELETAL Normal range of motion at all joints. No bony deformities or tenderness. No CVA tenderness. EXTREMITIES: Chronic lower extremity venous stasis changes bilaterally, no evidence of infection SKIN: Warm and dry. Normal capillary refill. No rashes. No jaundice. PSYCHIATRIC: Cooperative. Good eye contact. Appropriate mood and affect. Abnormal Lab Results 01/31/19 01/31/19 01/31/19 21:08 21:19 21: WBC 15.2 H MCHC 31.9 L RDW 18.2 H Absolute Neuts (auto) 13.6 H Neutrophils % 89.6 H D Lymphocytes % 5.8 L D PT with INR 17.90 H INR 1.51 H VBG pH 7.43 H POC VBG pCO2 36.5 L POC VBG pO2 50.0 H VBG O2 Sat (Breana) 84.4 H Random Glucose Lactic Acid AST ALT B-Natriuretic Peptide Urine Protein Urine Ketones Urine Blood Urine Nitrite 01/31/19 01/31/19 01/31/19 21:19 21:56 22:50 WBC MCHC RDW Absolute Neuts (auto) Neutrophils % Lymphocytes % PT with INR INR VBG pH POC VBG pCO2 POC VBG pO2 VBG O2 Sat (Breana) Random Glucose 167 H Lactic Acid 2.6 H* AST 67 H ALT 121 H B-Natriuretic Peptide 3964.2 H Urine Protein 3+ H Urine Ketones Trace H Urine Blood 2+ H Urine Nitrite Positive H Imaging studies reviewed ASSESSMENT AND PLAN: 73-year-old woman with sepsis secondary to Hospital acquired pneumonia Since she was recently admitted in December of this year and treated with IV antibiotics., leukocytosis, lactic acidosis and concurrent acute CHF exacerbation With fluid overload. Severe uncontrolled hypertension. Transaminitissuspect may be secondary to sepsis or possibly cardio hepatic syndrome in light of acute CHF exacerbation. Uncontrolled hyperglycemia. Admit to telemetry Blood cultures x2 Sputum culture Urine Legionella antigen Cefepime, vancomycin, metronidazole ID evaluation for antibiotics Lactic acid must be repeated Alatorre catheter for accurate I's and O's Daily weights Salt and free water restriction Furosemide 40 mg IV twice daily GAYLE inhibitor and beta-saba Cardiology evaluation #Hypothyroidism Continue with home dose of levothyroxine Send TSH #Diabetes mellitus NovoLog sliding scale #A. fib with RVR Continue home dose Toprol Continue with Xarelto Xarelto also for DVT prophylaxis
[2019-02-01] MEDS ORDERED: VANCOMYCIN 1 GM PREMIX - 1 GM/200 ML BAG IVPB SCH (02:30)
[2019-02-01] MEDS ORDERED: SODIUM CHLORIDE 1,000 ML IV SCH (02:45)
[2019-02-01] MEDS ORDERED: ALBUTEROL SO4 2.5/IPRATROPIUM 0.5 INH SOL 3 ML VIAL.NEB. NEB ONE (04:20)
[2019-02-01] MEDS ORDERED: FUROSEMIDE 40 MG/4 ML INJECTABLE VIAL ONE ×3 (04:43→14:14)
[2019-02-01] MEDS ORDERED: FUROSEMIDE 40 MG/4 ML INJECTABLE VIAL IVPUSH ONE (04:43)
[2019-02-01] MEDS ORDERED: METOPROLOL TARTRATE 5 MG/5 ML VIAL ONE (04:43)
[2019-02-01] MEDS ORDERED: METOPROLOL TARTRATE 5 MG/5 ML VIAL IVPUSH ONE (04:44)
[2019-02-01] MEDS ORDERED: ACETAMINOPHEN 325 MG TABLET (FP) PO PRN (04:44)
[2019-02-01] MEDS ORDERED: ACETAMINOPHEN INJECTION 100 ML IVPB ONE (04:48)
[2019-02-01] MEDS: FUROSEMIDE 40 MG/4 ML INJECTABLE VIAL IVPUSH SCH ×2 (06:22→14:24)
[2019-02-01] MEDS ORDERED: LEVOTHYROXINE NA 25 MCG TABLET (FP) ONE (06:56)
[2019-02-01] MEDS: LEVOTHYROXINE NA 125 MCG TABLET (FP) PO SCH (06:59)
[2019-02-01] MEDS ORDERED: CEFEPIME 2 GM/100 ML BAG IVPB ONE (09:37)
[2019-02-01] MEDS ORDERED: CEFTRIAXONE 1 GM in DEXTROSE 5%-WATER - 50 ML IVPB SCH (10:00)
[2019-02-01] MEDS ORDERED: CEFEPIME 2 GM in DEXTROSE 5%-WATER 100 ML IVPB SCH ×2 (10:00→22:00)
[2019-02-01] MEDS ORDERED: INSULIN (NOVOLOG) ASPART 100 UNITS/ML 10ML VIAL ONE ×3 (10:25→10:27)
[2019-02-01] MEDS ORDERED: INSULIN REGULAR HUMAN 100 UNITS/ML *VIAL ONE (10:27)
[2019-02-01] MEDS: INSULIN SLIDING SCALE (NOVOLOG) 1 VIAL SQ SCH ×4 (10:41→22:16)
[2019-02-01] MEDS ORDERED: AZITHROMYCIN IVPB 500 MG/250 ML BAG IVPB ONE (10:43)
[2019-02-01] MEDS: AZITHROMYCIN IVPB 250 MG in DEXTROSE 5%-WATER - 250 ML IVPB SCH (11:09)
--- NOTE | 2019-02-01 12:29 | CON.ID ---
Consult Consult Specialty:: infectious diseases Referred by:: Pauline Reason for Consultation:: sepsis,confusion,sob - History of Present Illness Chief Complaint: sob confusion History of Present Illness: 73 yr old woman with PMH of diastolic CHF, anemia, Afib (s/p 2 ablations, currently on xarelto), hypothyroid, PVD and CAD, chronic venous stasis/ lymphedema and chronic lower extremity wounds who presents to the ER with SOB with exertion, orthopnea, subjective fevers in context of diet and perhaps medication noncompliance, denies NSAID use. She denies chest pain, palpitations , near or true syncope. Noted to be in rapid afib. - Past Medical History Cardio/Vascular: Yes: AFIB, CHF, HTN Psych: Yes: Other Endocrine: Yes: Hypothyroidism - Alcohol/Substance Use Hx Alcohol Use: No - Smoking History Smoking history: Never smoked Have you smoked in the past 12 months: No If you are a former smoker, when did you quit?: 40 yrs ago Home Medications - Allergies Allergies/Adverse Reactions: Allergies Allergy/AdvReac Type Severity Reaction Status Date / Time shrimp Allergy Hives Verified 01/31/19 19:06 - Home Medications Home Medications: Ambulatory Orders RX: Levothyroxine Sodium [Synthroid] 125 mcg PO DAILY 04/10/17 RX: Rivaroxaban [Xarelto -] 20 mg PO HS 04/10/17 RX: Albuterol Sulfate Inhaler - [Ventolin HFA Inhaler -] 1 - 2 inh PO Q6H PRN # 1 inhaler 11/28/18 RX: Metoprolol Succinate [Toprol XL -] 100 mg PO DAILY #30 tab.sr.24h 11/28/18 RX: Spironolactone [Aldactone] 25 mg PO MOWEFR #20 tablet 11/28/18 RX: Ferrous Sulfate [Feosol] 325 mg PO BID #60 ud 12/31/18 RX: Ipratropium 0.02% Nebulizer [Atrovent 0.02% Nebulizer -] 1 neb NEB QID 01/31 RX: Ipratropium [place] [Atrovent Hfa] 2.5 gm IH QID PRN 01/31/19 RX: Furosemide [Lasix -] 40 mg PO DAILY #30 tablet 02/05/19 RX: Lactobacillus Acidophilus [Bacid -] 1 tab PO DAILY #30 tab 02/05/19 RX: Lisinopril [Prinivil] 2.5 mg PO DAILY #30 tablet 02/05/19 Review of Systems - Review of Systems Constitutional: reports: Weakness Eyes: reports: No Symptoms HENT: reports: No Symptoms Neck: reports: No Symptoms Cardiovascular: reports: Other Respiratory: reports: No Symptoms Gastrointestinal: reports: No Symptoms Genitourinary: reports: No Symptoms Musculoskeletal: reports: No Symptoms Neurological: reports: Change in LOC Endocrine: reports: No Symptoms Hematology/Lymphatic: reports: No Symptoms Psychiatric: reports: No Symptoms Physical Exam Vital Signs: Vital Signs Temperature 98.2 F 02/01/19 04:57 Pulse Rate 89 02/01/19 09:45 Respiratory Rate 21 H 02/01/19 09:45 Blood Pressure 119/69 02/01/19 09:45 O2 Sat by Pulse Oximetry (%) 98 02/01/19 09:45 Constitutional: Yes: No Distress, Calm HENT: Yes: Atraumatic, Normocephalic Neck: Yes: Supple, Trachea Midline Cardiovascular: Yes: Tachycardia, Pulse Irregular Respiratory: Yes: Regular, CTA Bilaterally Gastrointestinal: Yes: Normal Bowel Sounds, Soft Musculoskeletal: Yes: WNL Extremities: Yes: WNL Neurological: Yes: Alert Psychiatric: Yes: Alert Labs: CBC, BMP 01/31/19 21:08 01/31/19 21:56 Imaging - Results Chest X-ray: Report Reviewed, Image Reviewed Assessment/Plan Problem List - Problems (1) Atrial fibrillation with RVR Code(s): I48.91 - UNSPECIFIED ATRIAL FIBRILLATION (2) CHF exacerbation Code(s): I50.9 - HEART FAILURE, UNSPECIFIED Qualifiers: Heart failure type: diastolic Qualified Code(s): I50.33 - Acute on chronic diastolic (congestive) heart failure (3) Lymphedema of both lower extremities Code(s): I89.0 - LYMPHEDEMA, NOT ELSEWHERE CLASSIFIED (4) Afib Code(s): I48.91 - UNSPECIFIED ATRIAL FIBRILLATION Qualifiers: Atrial fibrillation type: other persistent Qualified Code(s): I48.19 - Other persistent atrial fibrillation (5) Cellulitis Code(s): L03.90 - CELLULITIS, UNSPECIFIED Qualifiers: Site of cellulitis: extremity Site of cellulitis of extremity: lower extremity Laterality: left Qualified Code(s): L03.116 - Cellulitis of left lower limb (6) HTN (hypertension) Code(s): I10 - ESSENTIAL (PRIMARY) HYPERTENSION Qualifiers: Hypertension type: essential hypertension Qualified Code(s): I10 - Essential (primary) hypertension (7) Hypothyroid Code(s): E03.9 - HYPOTHYROIDISM, UNSPECIFIED Qualifiers: Hypothyroidism type: unspecified Qualified Code(s): E03.9 - Hypothyroidism , unspecified (8) Morbid obesity Code(s): E66.01 - MORBID (SEVERE) OBESITY DUE TO EXCESS CALORIES plan abx await for cx report close watch once we have that will decide
[2019-02-01] MEDS ORDERED: ACETAMINOPHEN 325 MG TABLET (FP) ONE (13:21)
[2019-02-01] MEDS ORDERED: PIPERACILLIN/TAZOB 3.375 GM 3.375 GM/50 ML BAG IVPB ONE ×2 (14:48→16:58)
[2019-02-01] MEDS: PIPERACILLIN/TAZOB 3.375 GM 3.375 GM in DEXTROSE 5%-WATER - 50 ML IVPB SCH ×2 (14:57→17:11)
[2019-02-01] MEDS: RIVAROXABAN 20 MG TABLET PO SCH (17:10)
--- NOTE | 2019-02-01 19:21 | CON.CARD ---
Consult Consult Specialty:: Cardiology for Dr. Burleson Referred by:: Hospitalist Medicine Reason for Consultation:: Recurrent CHF - History of Present Illness Chief Complaint: Orthopnea History of Present Illness: 73 yr old woman with PMH of diastolic CHF, anemia, Afib (s/p 2 ablations, currently on xarelto), hypothyroid, PVD and CAD, chronic venous stasis/ lymphedema and chronic lower extremity wounds who presents to the ER with SOB with exertion, orthopnea, subjective fevers in context of diet and perhaps medication noncompliance, denies NSAID use. She denies chest pain, palpitations , near or true syncope. Noted to be in rapid afib. - History Source History Provided By: Patient Limitations to Obtaining History: No Limitations - Past Medical History Cardio/Vascular: Yes: AFIB, CHF, HTN Psych: Yes: Other Endocrine: Yes: Hypothyroidism - Alcohol/Substance Use Hx Alcohol Use: No - Smoking History Smoking history: Never smoked Have you smoked in the past 12 months: No If you are a former smoker, when did you quit?: 40 yrs ago Home Medications - Allergies Allergies/Adverse Reactions: Allergies Allergy/AdvReac Type Severity Reaction Status Date / Time shrimp Allergy Hives Verified 01/31/19 19:06 - Home Medications Home Medications: Ambulatory Orders Levothyroxine Sodium [Synthroid] 125 mcg PO DAILY 04/10/17 Rivaroxaban [Xarelto -] 20 mg PO HS 04/10/17 Albuterol Sulfate Inhaler - [Ventolin HFA Inhaler -] 1 - 2 inh PO Q6H PRN #1 inhaler 11/28/18 Metoprolol Succinate [Toprol XL -] 100 mg PO DAILY #30 tab.sr.24h 11/28/18 Spironolactone [Aldactone] 25 mg PO MOWEFR #20 tablet 11/28/18 Metformin HCl [Glucophage] 500 mg PO AM 12/22/18 Ferrous Sulfate [Feosol] 325 mg PO BID #60 ud 12/31/18 Furosemide [Lasix -] 80 mg PO DAILY #60 tablet 12/31/18 Ipratropium 0.02% Nebulizer [Atrovent] 1 neb NEB QID 01/31/19 Ipratropium [place] [Atrovent Hfa] 2.5 gm IH QID PRN 01/31/19 Review of Systems - Review of Systems Cardiovascular: reports: Edema, Shortness of Breath Respiratory: reports: Exercise Intolerance, Orthopnea, SOB, SOB on Exertion Vital Signs: Vital Signs Temperature 98.8 F 02/01/19 15:06 Pulse Rate 90 02/01/19 15:06 Respiratory Rate 19 02/01/19 15:06 Blood Pressure 102/68 02/01/19 15:06 O2 Sat by Pulse Oximetry (%) 95 02/01/19 15:06 Constitutional: Yes: No Distress, Calm Neck: Yes: Supple Respiratory: Yes: Regular, Diminished, On Nasal O2 Gastrointestinal: Yes: Normal Bowel Sounds, Soft, Abdomen, Obese Cardiovascular: Yes: Tachycardia, Pulse Irregular JVD: No Carotid Bruit: No Heart Sounds: Yes: S1, S2 Edema: Yes Edema: LLE: 2+, RLE: 2+ Integumentary: Yes: Venous Stasis Changes - Other Data Labs, Other Data: CBC, BMP 01/31/19 21:08 01/31/19 21:56 INR, PTT INR 1.51 (0.83-1.09) H 01/31/19 21:19 Troponin, BNP 01/31/19 01/31/19 21:08 21:56 Troponin I Cancelled 0.02 B-Natriuretic Peptide Cancelled 3964.2 H Troponin, BNP 01/31/19 01/31/19 21:08 21:56 Troponin I Cancelled 0.02 B-Natriuretic Peptide Cancelled 3964.2 H Rapid afib @ 143 Ejection Fraction %: LVEF > or = 40 % Imaging - Results Chest X-ray: Report Reviewed (Mild congestion) Problem List - Problems (1) Lymphedema of both lower extremities Code(s): I89.0 - LYMPHEDEMA, NOT ELSEWHERE CLASSIFIED (2) Atrial fibrillation with RVR Code(s): I48.91 - UNSPECIFIED ATRIAL FIBRILLATION (3) CHF exacerbation Code(s): I50.9 - HEART FAILURE, UNSPECIFIED Qualifiers: Heart failure type: diastolic Qualified Code(s): I50.33 - Acute on chronic diastolic (congestive) heart failure (4) HTN (hypertension) Code(s): I10 - ESSENTIAL (PRIMARY) HYPERTENSION Qualifiers: Hypertension type: essential hypertension Qualified Code(s): I10 - Essential (primary) hypertension (5) Hypothyroid Code(s): E03.9 - HYPOTHYROIDISM, UNSPECIFIED Qualifiers: Hypothyroidism type: unspecified Qualified Code(s): E03.9 - Hypothyroidism , unspecified (6) Morbid obesity Code(s): E66.01 - MORBID (SEVERE) OBESITY DUE TO EXCESS CALORIES Assessment/Plan 11/26/2018 Echo: Normal LV size and fxn, mild-mod MR, abnormal diastolic compliacne; borderline dilated LA 1. Acute on chronic diastolic heart failure in context of dietary indiscretion 2. Afib with RVR s/p 2 ablations 3. HTN 4. Hypothyroidism 5. Chronic venous stasis/lymphedema 6. Type 2 DM P:1. IV diuresis, Aldactone 25 qd with monitor diuretic response, renal fxn and electrolytes 2. Continue Toprol XL 100 qd, Xarelto 20 qd, add GAYLE-I/ARB as hemodynamics tolerate 3. Addressed importance of dietary, medication compliance 4. Thank you for consultative opportunity
[2019-02-02] MEDS ORDERED: VANCOMYCIN 1 GRAM (PRE-DOCKED) 1,000 MG/250 ML BAG IVPB SCH
[2019-02-02] MEDS: PIPERACILLIN/TAZOB 3.375 GM 3.375 GM in DEXTROSE 5%-WATER - 50 ML IVPB SCH ×3 (03:30→17:14)
[2019-02-02] MEDS ORDERED: PIPERACILLIN/TAZOBACTAM 3.375 GM VIAL IVPB ONE ×3 (03:31→17:11)
[2019-02-02] MEDS ORDERED: DEXTROSE 5%-WATER - 50 ML IVPB ONE ×3 (03:32→17:11)
[2019-02-02] MEDS: INSULIN SLIDING SCALE (NOVOLOG) 1 VIAL SQ SCH ×4 (06:35→21:56)
[2019-02-02] MEDS: FUROSEMIDE 40 MG/4 ML INJECTABLE VIAL IVPUSH SCH ×2 (06:36→13:35)
[2019-02-02] MEDS: LEVOTHYROXINE NA 125 MCG TABLET (FP) PO SCH (06:36)
[2019-02-02 06:38] LABS: BASO % 0.4 % (0-2.0); EOS % 0.5 % (0-4.5); HEMATOCRIT 32.2 % (32.4-45.2); HEMOGLOBIN 10.3 GM/dL (10.7-15.3); LYMPH % 11.3 % (8-40); MCH 29.9 pg (25.7-33.7); MCHC 32.1 g/dl (32.0-36.0); MEAN CELL VOLUME 93.3 fl (80-96); MEAN PLT VOLUME 9.5 fl (7.5-11.1); MONO % 8.6 % (3.8-10.2); NEUT % 79.2 % (42.8-82.8); PLATELET COUNT 165 K/MM3 (134-434); RBC 3.45 M/mm3 (3.60-5.2); RDW 17.8 % (11.6-15.6); WHITE BLOOD COUNT 12.5 K/mm3 (4.0-10.0)
[2019-02-02 07:20] LABS: ALBUMIN 2.6 g/dl (3.4-5.0); BILIRUBIN,TOTAL 0.6 mg/dL (0.2-1); BLOOD UREA NITROGEN 21.7 mg/dL (7-18); CALCIUM 8.3 mg/dL (8.5-10.1); CREATININE 1.4 mg/dL (0.55-1.3); MAGNESIUM 2.2 mg/dL (1.8-2.4); PHOSPHOROUS 3.2 mg/dL (2.5-4.9); POTASSIUM 3.3 mmol/L (3.5-5.1); TOT PROT 6.1 g/dl (6.4-8.2)
[2019-02-02] MEDS ORDERED: PT OWN MED DRAWER 7, Y5N ONE (07:24)
--- NOTE | 2019-02-02 07:57 | PN ---
Progress Note, Physician History of Present Illness: 73 yr old woman with PMH of diastolic CHF, anemia, Afib (s/p 2 ablations, currently on xarelto), hypothyroid, PVD and CAD, chronic venous stasis/ lymphedema and chronic lower extremity wounds who presents to the ER with SOB with exertion, orthopnea, subjective fevers in context of diet and perhaps medication noncompliance, denies NSAID use. She denies chest pain, palpitations , near or true syncope. Noted to be in rapid afib. Dr. Burleson spoke with Dr. Ratliff, pt's stream control officer in 2018. Pt was cardioverted twice, the last time about 3 years ago; LVEF, which had been poor, improved to nearly normal afterward. She was on amiodarone, and was maintaining sinus rhythm; he believes the dose had been decreased to 200 mg three times a week (he does not believe she had associated pulmonary,liver, or thyroid side effects); she was also on metoprolol. She had a stress MIBI about a year ago that showed no ischemia. However, he has not seen her in about 6 months, as she has spent more time with family in [place], and he is uncertain of her compliance to medications and diet. - Current Medication List Current Medications: Active Medications Acetaminophen (Tylenol -) 650 mg PO Q6H PRN PRN Reason: FEVER Last Admin: 02/01/19 13:26 Dose: 650 mg Furosemide (Lasix Injection -) 40 mg IVPUSH BID@0600,1400 [facility] Last Admin: 02/02/19 06:36 Dose: 40 mg Azithromycin 250 mg/ Dextrose 250 mls @ 250 mls/hr IVPB DAILY [facility] Last Admin: 02/01/19 11:09 Dose: 250 mls/hr Piperacillin Sod/Tazobactam (Sod 3.375 gm/ Dextrose) 50 mls @ 100 mls/hr IVPB Q8H-IV [facility]; Protocol Last Admin: 02/02/19 03:30 Dose: 100 mls/hr Influenza Virus Vaccine Quadrival (Flulaval Quad ) 60 mcg IM .ONCE ONE Stop: 02/02/19 10:01 Insulin Aspart (Novolog Vial Sliding Scale -) 1 vial SQ ACHS [facility]; Protocol Last Admin: 02/02/19 06:35 Dose: Not Given Levothyroxine Sodium (Synthroid -) 125 mcg PO DAILY@0700 [facility] Last Admin: 02/02/19 06:36 Dose: 125 mcg Metoprolol Succinate (Toprol Xl -) 100 mg PO DAILY [facility] Last Admin: 02/01/19 09:44 Dose: 100 mg Rivaroxaban (Xarelto) 20 mg PO DAILY@1800 [facility] Last Admin: 02/01/19 17:10 Dose: 20 mg Spironolactone (Aldactone -) 25 mg PO MoWeFr@1000 [facility] - Objective Vital Signs: Vital Signs Temperature 97.8 F 02/02/19 06:00 Pulse Rate 91 H 02/02/19 06:00 Respiratory Rate 24 H 02/02/19 06:00 Blood Pressure 115/59 L 02/02/19 06:00 O2 Sat by Pulse Oximetry (%) 97 02/02/19 02:32 Eyes: Yes: WNL, Conjunctiva Clear, EOM Intact HENT: Yes: WNL, Atraumatic, Normocephalic Neck: Yes: WNL, Supple, Trachea Midline Cardiovascular: Yes: WNL, Regular Rate and Rhythm Respiratory: Yes: WNL, Regular, CTA Bilaterally Gastrointestinal: Yes: WNL, Normal Bowel Sounds Genitourinary: Yes: WNL Musculoskeletal: Yes: WNL Extremities: Yes: Erythema Edema: Yes Integumentary: Yes: WNL Neurological: Yes: WNL, Alert, Oriented ...Motor Strength: WNL Psychiatric: Yes: WNL Labs: CBC, BMP 02/02/19 06:10 02/02/19 06:10 INR, PTT INR 1.51 (0.83-1.09) H 01/31/19 21:19 Assessment/Plan 11/26/2018 Echo: Normal LV size and fxn, mild-mod MR, abnormal diastolic compliacne; borderline dilated LA 1. Acute on chronic diastolic heart failure in context of dietary indiscretion 2. Afib with RVR s/p 2 ablations 3. HTN 4. Hypothyroidism 5. Chronic venous stasis/lymphedema 6. Type 2 DM P:1. IV diuresis, Aldactone 25 qd with monitor diuretic response, renal fxn and electrolytes 2. Continue Toprol XL 100 qd, Xarelto 20 qd, add GAYLE-I/ARB as hemodynamics tolerate 3. Addressed importance of dietary, medication compliance cc time spent 36 min
[2019-02-02] MEDS ORDERED: POTASSIUM CHLORIDE TABS 20 MEQ TABLET.ER (FP) PO ONE (08:03)
[2019-02-02] MEDS: AZITHROMYCIN IVPB 250 MG in DEXTROSE 5%-WATER - 250 ML IVPB SCH (09:53)
[2019-02-02] MEDS: SPIRONOLACTONE 25 MG TABLET (FP) PO SCH (09:53)
[2019-02-02] MEDS ORDERED: FLU VACCINE QUAD 60 MCG/0.5 ML (MDV 19-20) IM ONE (10:00)
--- NOTE | 2019-02-02 10:44 | EKG ---
Test Reason : Blood Pressure : / mmHG Vent. Rate : 143 BPM Atrial Rate : 127 BPM P-R Int : 000 ms QRS Dur : 082 ms QT Int : 310 ms P-R-T Axes : 000 012 081 degrees QTc Int : 478 ms ATRIAL FIBRILLATION WITH RAPID VENTRICULAR RESPONSE ABNORMAL ECG WHEN COMPARED WITH ECG OF 23-DEC-2018 09:09, NO SIGNIFICANT CHANGE WAS FOUND Confirmed by ALLISON YOON MD ([id number]) on 02/02/2019 10:44:25 AM Referred By: Confirmed By:ALLISON YOON MD
[2019-02-02 12:19] VITALS: BMI 46.6
--- NOTE | 2019-02-02 13:06 | PN ---
Progress Note, Physician History of Present Illness: patient looks much better no complaints - Current Medication List Current Medications: Active Medications Acetaminophen (Tylenol -) 650 mg PO Q6H PRN PRN Reason: FEVER Last Admin: 02/01/19 13:26 Dose: 650 mg Furosemide (Lasix Injection -) 40 mg IVPUSH BID@0600,1400 [facility] Last Admin: 02/02/19 06:36 Dose: 40 mg Azithromycin 250 mg/ Dextrose 250 mls @ 250 mls/hr IVPB DAILY [facility] Last Admin: 02/02/19 09:53 Dose: 250 mls/hr Piperacillin Sod/Tazobactam (Sod 3.375 gm/ Dextrose) 50 mls @ 100 mls/hr IVPB Q8H-IV [facility]; Protocol Last Admin: 02/02/19 09:53 Dose: 100 mls/hr Insulin Aspart (Novolog Vial Sliding Scale -) 1 vial SQ ACHS [facility]; Protocol Last Admin: 02/02/19 12:38 Dose: Not Given Levothyroxine Sodium (Synthroid -) 125 mcg PO DAILY@0700 [facility] Last Admin: 02/02/19 06:36 Dose: 125 mcg Metoprolol Succinate (Toprol Xl -) 100 mg PO DAILY [facility] Last Admin: 02/02/19 10:03 Dose: 100 mg Rivaroxaban (Xarelto) 20 mg PO DAILY@1800 [facility] Last Admin: 02/01/19 17:10 Dose: 20 mg Spironolactone (Aldactone -) 25 mg PO MoWeFr@1000 [facility] Last Admin: 02/02/19 09:53 Dose: 25 mg - Objective Vital Signs: Vital Signs Temperature 98.1 F 02/02/19 10:00 Pulse Rate 77 02/02/19 12:00 Respiratory Rate 22 H 02/02/19 12:00 Blood Pressure 135/87 02/02/19 12:00 O2 Sat by Pulse Oximetry (%) 99 02/02/19 09:00 Constitutional: Yes: No Distress, Calm Cardiovascular: Yes: S1, S2 Respiratory: Yes: Regular, CTA Bilaterally, On Nasal O2 Gastrointestinal: Yes: Normal Bowel Sounds, Soft Musculoskeletal: Yes: WNL Extremities: Yes: WNL Neurological: Yes: Alert, Oriented Psychiatric: Yes: Alert, Oriented Labs: CBC, BMP 02/02/19 06:10 02/02/19 06:10 INR, PTT INR 1.51 (0.83-1.09) H 01/31/19 21:19 Assessment/Plan patient who came in with ams sob,now doing well urine cx noted continue abx await for identification of the organism rest as per the team
--- NOTE | 2019-02-02 13:38 | CON.PULM ---
Consult Consult Specialty:: PULM/CCM Referred by:: Hospitalist Reason for Consultation:: SOB - History of Present Illness Chief Complaint: SOB History of Present Illness: 73 F, CHF, CAD, A-fib on xeralto, hypothyroidism, and BLE chronic venous stasis. Remote smoker, having quit about 45 years ago. Admitted via the ER due to progressive SOB and fever of 101.7F. No travel history or sick contacts. No hemoptysis or night sweats. Saw a rn interventional last Saturday that told her she had pleural effusions on the CXR. She does snore occasionally but does have some history that would be consistent with Obstructive Sleep Apnea Syndrome. CXR: Cardiomegaly, pleural effusions, bilateral pulmonary vascular congestion. - History Source History Provided By: Patient Limitations to Obtaining History: No Limitations - Past Medical History Cardio/Vascular: Yes: AFIB, CHF, HTN Pulmonary: Yes: Other (possible Sleep Apnea ). No: Asthma, COPD, O2 Dependent, Pneumonia, Previously Intubated, Pulmonary Embolus, Pulmonary Fibrosis Psych: Yes: Other Endocrine: Yes: Hypothyroidism - Alcohol/Substance Use Hx Alcohol Use: No - Smoking History Smoking history: Never smoked Have you smoked in the past 12 months: No If you are a former smoker, when did you quit?: 40 yrs ago Home Medications - Allergies Allergies/Adverse Reactions: Allergies Allergy/AdvReac Type Severity Reaction Status Date / Time shrimp Allergy Hives Verified 01/31/19 19:06 - Home Medications Home Medications: Ambulatory Orders Levothyroxine Sodium [Synthroid] 125 mcg PO DAILY 04/10/17 Rivaroxaban [Xarelto -] 20 mg PO HS 04/10/17 Albuterol Sulfate Inhaler - [Ventolin HFA Inhaler -] 1 - 2 inh PO Q6H PRN #1 inhaler 11/28/18 Metoprolol Succinate [Toprol XL -] 100 mg PO DAILY #30 tab.sr.24h 11/28/18 Spironolactone [Aldactone] 25 mg PO MOWEFR #20 tablet 11/28/18 Metformin HCl [Glucophage] 500 mg PO AM 12/22/18 Ferrous Sulfate [Feosol] 325 mg PO BID #60 ud 12/31/18 Furosemide [Lasix -] 80 mg PO DAILY #60 tablet 12/31/18 Ipratropium 0.02% Nebulizer [Atrovent] 1 neb NEB QID 01/31/19 Ipratropium [place] [Atrovent Hfa] 2.5 gm IH QID PRN 01/31/19 Review of Systems - Review of Systems Constitutional: reports: Chills, Fever, Malaise. denies: Night Sweats Eyes: reports: No Symptoms HENT: reports: No Symptoms Neck: reports: No Symptoms Cardiovascular: reports: Edema, Shortness of Breath. denies: Chest Pain, Palpitations Respiratory: reports: Cough, Orthopnea, Snoring, SOB, SOB on Exertion. denies: Hemoptysis, Wheezing Gastrointestinal: reports: No Symptoms Genitourinary: reports: No Symptoms Breasts: reports: No Symptoms Reported Musculoskeletal: reports: Back Pain, Joint Pain, Joint Swelling Integumentary: reports: Blister, Change in Color, Erythema, Pruritis, Wound Neurological: reports: No Symptoms Endocrine: reports: No Symptoms Hematology/Lymphatic: reports: No Symptoms Physical Exam Vital Sings: Vital Signs Temperature 98.1 F 02/02/19 10:00 Pulse Rate 77 02/02/19 12:00 Respiratory Rate 22 H 02/02/19 12:00 Blood Pressure 135/87 02/02/19 12:00 O2 Sat by Pulse Oximetry (%) 99 02/02/19 09:00 Constitutional: Yes: Mild Distress Eyes: Yes: Conjunctiva Clear, EOM Intact HENT: Yes: Atraumatic, Normocephalic Neck: Yes: Supple, Trachea Midline Cardiovascular: Yes: Pulse Irregular Respiratory: Yes: Cough, Diminished, On Nasal O2, Rales, Rhonchi, SOB, SOB on Exertion, Tachypnea. No: Accessory Muscle Use, Stridor, Wheezes ...Inspection: Yes: WNL ...Clubbing: No Gastrointestinal: Yes: Normal Bowel Sounds, Soft, Abdomen, Obese Renal/: Yes: WNL Musculoskeletal: Yes: Joint Stiffness, Joint Swelling Extremities: Yes: Delayed Capillary Refill, Erythema Edema: Yes Peripheral Pulses WNL: Yes Integumentary: Yes: Bruising, Venous Stasis Changes Neurological: Yes: WNL, Alert, Oriented ...Motor Strength: WNL Psychiatric: Yes: WNL, Alert, Oriented Labs: CBC, BMP 02/02/19 06:10 02/02/19 06:10 Imaging - Results Chest X-ray: Report Reviewed, Image Reviewed Problem List - Problems (1) Atrial fibrillation with RVR Code(s): I48.91 - UNSPECIFIED ATRIAL FIBRILLATION (2) CHF exacerbation Code(s): I50.9 - HEART FAILURE, UNSPECIFIED Qualifiers: Heart failure type: diastolic Qualified Code(s): I50.33 - Acute on chronic diastolic (congestive) heart failure (3) Lymphedema of both lower extremities Code(s): I89.0 - LYMPHEDEMA, NOT ELSEWHERE CLASSIFIED (4) Afib Code(s): I48.91 - UNSPECIFIED ATRIAL FIBRILLATION Qualifiers: Atrial fibrillation type: other persistent Qualified Code(s): I48.19 - Other persistent atrial fibrillation (5) Cellulitis Code(s): L03.90 - CELLULITIS, UNSPECIFIED Qualifiers: Site of cellulitis: extremity Site of cellulitis of extremity: lower extremity Laterality: left Qualified Code(s): L03.116 - Cellulitis of left lower limb (6) HTN (hypertension) Code(s): I10 - ESSENTIAL (PRIMARY) HYPERTENSION Qualifiers: Hypertension type: essential hypertension Qualified Code(s): I10 - Essential (primary) hypertension (7) Hypothyroid Code(s): E03.9 - HYPOTHYROIDISM, UNSPECIFIED Qualifiers: Hypothyroidism type: unspecified Qualified Code(s): E03.9 - Hypothyroidism , unspecified (8) Morbid obesity Code(s): E66.01 - MORBID (SEVERE) OBESITY DUE TO EXCESS CALORIES Assessment/Plan R/O OSAS Do not suspect PNA Do not suspect COPD ABX per ID Follow cultures O2 as needed to maintain saturation Will need outpatient PFTs Will need Sleep Screen Daily weights Lasix ECHO No smoking Will follow Thank you. Dr Chua
--- NOTE | 2019-02-02 16:37 | PN ---
Progress Note (short form) - Note Progress Note: Hospitalist Medicine Ambulating in room. Without complaint Vitals 02/02/19 16:00 Pulse Rate 76 Respiratory 22 H Rate Blood Pressure 137/77 Physical Exam general: resting in bed, in NAD HEENT: NCAT neck: supple cardio: +Irreg irreg. no r/m/g pulm: +scattered rhonchi. mild accessory m usage abdomen: obese, nontender, nondistended LE: 1+ pitting edema b/l. pulses intact neuro: install technician 2-12 grossly intact Laboratory Tests 02/02/19 02/02/19 02/02/19 05:27 06:10 06:10 WBC 12.5 H Hgb 10.3 L Hct 32.2 L D Plt Count 165 D Sodium 141 Potassium 3.3 L Chloride 105 Carbon Dioxide 30 BUN 21.7 H Creatinine 1.4 H POC Glucometer 95 ALT 68 H Alkaline Phosphatase 69 Total Protein 6.1 L Albumin 2.6 L Microbiology 02/01/19 03:28 Urine For Antigen Detection Legionella Antigen - Final 02/01/19 03:28 Urine For Antigen Detection Streptococcus pneumoniae Antigen (M - Final 01/31/19 22:50 Urine - Urine Clean Catch Urine Culture - Preliminary Lactose Fermenting Neg Bacilli 01/31/19 21:19 Blood - Peripheral Venous Blood Culture - Preliminary NO GROWTH OBTAINED AFTER 24 HOURS, INCUBATION TO CONTINUE FOR 4 DAYS. 01/31/19 21:19 Blood - Peripheral Venous Blood Culture - Preliminary NO GROWTH OBTAINED AFTER 24 HOURS, INCUBATION TO CONTINUE FOR 4 DAYS. Imaging 01/31/19: CXR: slight increase in central vascular markings since last study 02/01/19: abd sono: fatty infiltration of liver, right renal cysts EKG: +afib w/ RVR, qtc 478ms Assessment/plan 73 y/o F with PMH of CHF, afib (xarelto)Status post 2 ablations, CAD, BLE chronic venous stasis, hypothyroidism presenting with fever and shortness of breath. #Acute on chronic diastolic HF likely 2/2 poor diet -c/w IV lasix 40mg IVP BID -c/w aldactone -f/u ECHO -strict i/o, na control 2g, daily wts #Afib w/ RVR s/p 2 ablations -c/w toprol XL rate control -c/w xarelto -cardio consult: Dr. Gorman #NIDDM -on metformin at home; held -c/w BGM, ISS ACHS -f/u a1c, as has been hypoglycemic thus far #UTI -c/w zosyn (02/01), await c+s -c/t follow ucx, blood cx, legionella (-) #Hypothyroid -c/w synthroid #F/E/N avoid IVF as with CHF continue to follow lytes na controlled diet #PPX DVT: on xarelto #Dispo cont'd tele monitoring will need outpt PFTs, sleep study <Leigh Caceres - Last Filed: 02/02/19 16:37> - Note Progress Note: Seen and examined; please see resident note for further historical information. I personally verified all johns historical information and exam findings. Personally interpreted all imaging and diagnostics and reviewed appropriate consults. I reviewed all labs and vital signs as per resident note and EMR as documented. I agree with the above assessment and plan unless supplemented by myself in the following. Symptoms and HR improved; appreciate CV input. No new complaints and denied kulwinder CP or SOB. 10 sys ROS done and negative aside from HPI. NC AT EOMI PERRLA HR wnl, +s1/2 NT ND +BS Lungs with normal breath sounds, w/ sym exp Trachea mideline, no LN, no JVD CN2-12 wnl, no fnd noted Normal mood, appropriate behavior No rashes or skin breakdown noted 5/5 strength x4 ext with normal tone A/P: Improved; monitoring on the medicine service. Acute on Chronic Resp. Failure 2/2 D-CHF Exacerbation Lactic Acidosis, improved R/O PNA (FU sputum, blood CX, viral PCR) ?Acute Cystitis with hematuria (covered by abx, +Nitrite. FU culture, ID consult ) Afib with CVR on Xarelto (failed 2 ablations, on BB, manage per CV) Hx CAD, no acute sx ACS. Continue Toprol XL Hx HTN, controlledContinue Toprol XL, Lasix, Aldactone Hx Hypothyroidism - Continue Synthroid. TSH wnl Hx Fe def Anemia, Noted past hx. Trend CBC Hx PAD, no s/s CLI Hx Chronic venous stasis/Lymphedema <Killian Baer - Last Filed: 02/04/19 07:46>
[2019-02-02] MEDS: RIVAROXABAN 20 MG TABLET PO SCH (17:15)
[2019-02-03] MEDS ORDERED: DEXTROSE 5%-WATER - 50 ML IVPB ONE ×4 (01:34→23:01)
[2019-02-03] MEDS ORDERED: PIPERACILLIN/TAZOBACTAM 3.375 GM VIAL IVPB ONE ×4 (01:34→23:01)
[2019-02-03] MEDS: PIPERACILLIN/TAZOB 3.375 GM 3.375 GM in DEXTROSE 5%-WATER - 50 ML IVPB SCH ×3 (01:37→17:50)
[2019-02-03] MEDS: FUROSEMIDE 40 MG/4 ML INJECTABLE VIAL IVPUSH SCH ×2 (06:12→14:44)
[2019-02-03] MEDS: LEVOTHYROXINE NA 125 MCG TABLET (FP) PO SCH (06:13)
[2019-02-03 06:24] LABS: BASO % 0.3 % (0-2.0); EOS % 1.5 % (0-4.5); HEMATOCRIT 33.8 % (32.4-45.2); HEMOGLOBIN 10.9 GM/dL (10.7-15.3); LYMPH % 20.2 % (8-40); MCH 30.1 pg (25.7-33.7); MCHC 32.4 g/dl (32.0-36.0); MEAN PLT VOLUME 9.7 fl (7.5-11.1); MONO % 9.7 % (3.8-10.2); NEUT % 68.3 % (42.8-82.8); PLATELET COUNT 194 K/MM3 (134-434); RBC 3.63 M/mm3 (3.60-5.2); RDW 17.6 % (11.6-15.6); WHITE BLOOD COUNT 10.1 K/mm3 (4.0-10.0)
[2019-02-03 06:54] LABS: BLOOD UREA NITROGEN 20.5 mg/dL (7-18); CALCIUM 8.5 mg/dL (8.5-10.1); CREATININE 1.2 mg/dL (0.55-1.3); MAGNESIUM 2.4 mg/dL (1.8-2.4); PHOSPHOROUS 3.3 mg/dL (2.5-4.9); POTASSIUM 3.5 mmol/L (3.5-5.1)
[2019-02-03] MEDS: INSULIN SLIDING SCALE (NOVOLOG) 1 VIAL SQ SCH (07:07)
[2019-02-03] MEDS ORDERED: PT OWN MED DRAWER 7, Y5N ONE (10:50)
--- NOTE | 2019-02-03 11:45 | ECHO ---
Version: 1 Name: DIEGO REDD Exam: Adult Echocardiogram Study Date: 02/03/2019, 7:57 AM Age: 73 Years MMode/2D Measurements & Calculations IVSd: 1.19 cm LVIDs: 3.4 cm LVIDd: 5.0 cm LVPWd: 1.27 cm LAV (MOD-bp): 124.0 ml LVOT diam: 2.03 cm Ao root diam: 2.7 cm LA dimension: 3.8 cm Doppler Measurements & Calculations MV E max juan: 130.0 cm/sec Med E/e': 15.5 MV A max juan: 33.5 cm/sec Med Peak E' Juan: 8.4 cm/sec MV E/A: 3.9 Lat E/e': 18.4 Lat Peak E' Juan: 7.1 cm/sec MR max P.9 mmHg Ao max P.1 mmHg Ao V2 max: 173.7 cm/sec TR max juan: 255.5 cm/sec TR max P.3 mmHg Left Ventricle The left ventricle is normal in size. There is mild concentric left ventricular hypertrophy. Paradox ical septal motion. Left ventricular systolic function is mildly reduced. Ejection Fraction = 45-50%. The transmitral spectral Doppler flow pattern is suggestive of impaired LV relaxation. Right Ventricle The right ventricle is grossly normal size. The right ventricular systolic function is grossly brijesh l. Atria The left atrium is moderately dilated. The right atrium is mildly dilated. Mitral Valve There is mild mitral annular calcification. There is mild mitral regurgitation. Tricuspid Valve The tricuspid valve is not well visualized, but is grossly normal. There is Trace to mild tricuspid regurgitation. Right ventricular systolic pressure is normal. Aortic Valve There is moderate aortic sclerosis.;. No hemodynamically significant valvular aortic stenosis. Pulmonic Valve The pulmonic valve is not well visualized. Great Vessels The aortic root is normal size. Pericardium/Pleura There is no pericardial effusion. Summary Statements The left ventricle is normal in size. There is mild concentric left ventricular hypertrophy. Paradox ical septal motion. Left ventricular systolic function is mildly reduced. Ejection Fraction = 45-50%. The right ventricle is grossly normal size. The right ventricular systolic function is grossly brijesh l. The left atrium is moderately dilated. The right atrium is mildly dilated. There is moderate aortic sclerosis.; No hemodynamically significant valvular aortic stenosis. There is mild mitral annular calcification. There is mild mitral regurgitation. MD Ritika Jaimes02/03/2019, 11:45 AM Ordering Physician: Giovanni Chua Performed By: Tanesha Tipton
--- NOTE | 2019-02-03 13:37 | PN ---
Progress Note (short form) - Note Progress Note: Feels better today. Less SOB. No acute events overnight. Intake & Output 01/31/19 02/01/19 02/02/19 02/03/19 23:59 23:59 23:59 23:59 Intake Total 1650 400 Output Total 1900 Balance -250 400 Weight 168 lb 255 lb 260 lb 1.6 oz Last Vital Signs Temp Pulse Resp BP Pulse Ox 98.4 F 76 20 119/70 100 02/03/19 08:00 02/03/19 08:00 02/03/19 08:00 02/03/19 08:00 02/03/19 09:00 Active Medications Acetaminophen (Tylenol -) 650 mg PO Q6H PRN PRN Reason: FEVER Last Admin: 02/01/19 13:26 Dose: 650 mg Furosemide (Lasix Injection -) 40 mg IVPUSH BID@0600,1400 [facility] Last Admin: 02/03/19 14:44 Dose: 40 mg Piperacillin Sod/Tazobactam (Sod 3.375 gm/ Dextrose) 50 mls @ 100 mls/hr IVPB Q8H-IV [facility]; Protocol Last Admin: 02/03/19 10:42 Dose: 100 mls/hr Lactobacillus Acidophilus (Bacid -) 1 tab PO DAILY [facility] Levothyroxine Sodium (Synthroid -) 125 mcg PO DAILY@0700 [facility] Last Admin: 02/03/19 06:13 Dose: 125 mcg Metoprolol Succinate (Toprol Xl -) 100 mg PO DAILY [facility] Last Admin: 02/03/19 10:43 Dose: 100 mg Rivaroxaban (Xarelto) 20 mg PO DAILY@1800 [facility] Last Admin: 02/02/19 17:15 Dose: 20 mg Spironolactone (Aldactone -) 25 mg PO MoWeFr@1000 [facility] Last Admin: 02/02/19 09:53 Dose: 25 mg Constitutional: Yes: Awake and alert, No acute distress Eyes: Yes: Conjunctiva Clear, EOM Intact HENT: Yes: Atraumatic, Normocephalic Neck: Yes: Supple, Trachea Midline Cardiovascular: Yes: Pulse Irregular Respiratory: Yes: Cough, Diminished, On Nasal O2, Rales, Rhonchi. No: Accessory Muscle Use, Stridor, Wheezes ...Inspection: Yes: WNL ...Clubbing: No Gastrointestinal: Yes: Normal Bowel Sounds, Soft, Abdomen, Obese Renal/: Yes: WNL Musculoskeletal: Yes: Joint Stiffness, Joint Swelling Extremities: Yes: Delayed Capillary Refill, Erythema Edema: Yes Peripheral Pulses WNL: Yes Integumentary: Yes: Bruising, Venous Stasis Changes Neurological: Yes: WNL, Alert, Oriented ...Motor Strength: WNL Psychiatric: Yes: WNL, Alert, Oriented Labs: Laboratory Results - last 24 hr 02/02/19 02/02/19 02/02/19 06:10 17:35 21:48 WBC RBC Hgb Hct MCV MCH MCHC RDW Plt Count MPV Absolute Neuts (auto) Neutrophils % Lymphocytes % Monocytes % Eosinophils % Basophils % Nucleated RBC % Sodium Potassium Chloride Carbon Dioxide Anion Gap BUN Creatinine Est GFR (CKD-EPI)AfAm Est GFR (CKD-EPI)NonAf POC Glucometer 68 115 Random Glucose Hemoglobin A1c % 5.5 Calcium Phosphorus Magnesium 02/03/19 02/03/19 02/03/19 05:35 05:35 06:45 WBC 10.1 H RBC 3.63 Hgb 10.9 Hct 33.8 MCV 93.0 MCH 30.1 MCHC 32.4 RDW 17.6 H Plt Count 194 MPV 9.7 Absolute Neuts (auto) 6.9 Neutrophils % 68.3 Lymphocytes % 20.2 D Monocytes % 9.7 Eosinophils % 1.5 D Basophils % 0.3 Nucleated RBC % 0 Sodium 141 Potassium 3.5 Chloride 104 Carbon Dioxide 31 Anion Gap 6 L BUN 20.5 H Creatinine 1.2 Est GFR (CKD-EPI)AfAm 51.20 Est GFR (CKD-EPI)NonAf 44.17 POC Glucometer 108 Random Glucose 96 Hemoglobin A1c % Calcium 8.5 Phosphorus 3.3 Magnesium 2.4 02/03/19 13:00 WBC RBC Hgb Hct MCV MCH MCHC RDW Plt Count MPV Absolute Neuts (auto) Neutrophils % Lymphocytes % Monocytes % Eosinophils % Basophils % Nucleated RBC % Sodium Potassium Chloride Carbon Dioxide Anion Gap BUN Creatinine Est GFR (CKD-EPI)AfAm Est GFR (CKD-EPI)NonAf POC Glucometer 89 Random Glucose Hemoglobin A1c % Calcium Phosphorus Magnesium Problem List - Problems (1) Atrial fibrillation with RVR Code(s): I48.91 - UNSPECIFIED ATRIAL FIBRILLATION (2) CHF exacerbation Code(s): I50.9 - HEART FAILURE, UNSPECIFIED Qualifiers: Heart failure type: diastolic Qualified Code(s): I50.33 - Acute on chronic diastolic (congestive) heart failure (3) Lymphedema of both lower extremities Code(s): I89.0 - LYMPHEDEMA, NOT ELSEWHERE CLASSIFIED (4) Afib Code(s): I48.91 - UNSPECIFIED ATRIAL FIBRILLATION Qualifiers: Atrial fibrillation type: other persistent Qualified Code(s): I48.19 - Other persistent atrial fibrillation (5) Cellulitis Code(s): L03.90 - CELLULITIS, UNSPECIFIED Qualifiers: Site of cellulitis: extremity Site of cellulitis of extremity: lower extremity Laterality: left Qualified Code(s): L03.116 - Cellulitis of left lower limb (6) HTN (hypertension) Code(s): I10 - ESSENTIAL (PRIMARY) HYPERTENSION Qualifiers: Hypertension type: essential hypertension Qualified Code(s): I10 - Essential (primary) hypertension (7) Hypothyroid Code(s): E03.9 - HYPOTHYROIDISM, UNSPECIFIED Qualifiers: Hypothyroidism type: unspecified Qualified Code(s): E03.9 - Hypothyroidism , unspecified (8) Morbid obesity Code(s): E66.01 - MORBID (SEVERE) OBESITY DUE TO EXCESS CALORIES Assessment/Plan R/O OSAS Do not suspect PNA Do not suspect COPD ABX per ID Follow cultures O2 as needed to maintain saturation Will need outpatient PFTs Will need Sleep Screen Daily weights Lasix No smoking Start Bacid Dr Chua Problem List - Problems (1) Atrial fibrillation with RVR Code(s): I48.91 - UNSPECIFIED ATRIAL FIBRILLATION (2) CHF exacerbation Code(s): I50.9 - HEART FAILURE, UNSPECIFIED Qualifiers: Heart failure type: diastolic Qualified Code(s): I50.33 - Acute on chronic diastolic (congestive) heart failure (3) Lymphedema of both lower extremities Code(s): I89.0 - LYMPHEDEMA, NOT ELSEWHERE CLASSIFIED (4) Afib Code(s): I48.91 - UNSPECIFIED ATRIAL FIBRILLATION Qualifiers: Atrial fibrillation type: other persistent Qualified Code(s): I48.19 - Other persistent atrial fibrillation (5) Cellulitis Code(s): L03.90 - CELLULITIS, UNSPECIFIED Qualifiers: Site of cellulitis: extremity Site of cellulitis of extremity: lower extremity Laterality: left Qualified Code(s): L03.116 - Cellulitis of left lower limb (6) HTN (hypertension) Code(s): I10 - ESSENTIAL (PRIMARY) HYPERTENSION Qualifiers: Hypertension type: essential hypertension Qualified Code(s): I10 - Essential (primary) hypertension (7) Hypothyroid Code(s): E03.9 - HYPOTHYROIDISM, UNSPECIFIED Qualifiers: Hypothyroidism type: unspecified Qualified Code(s): E03.9 - Hypothyroidism , unspecified (8) Morbid obesity Code(s): E66.01 - MORBID (SEVERE) OBESITY DUE TO EXCESS CALORIES
--- NOTE | 2019-02-03 14:41 | PN ---
Progress Note, Physician History of Present Illness: 73 yr old woman with PMH of diastolic CHF, anemia, Afib (s/p 2 ablations, currently on xarelto), hypothyroid, PVD and CAD, chronic venous stasis/ lymphedema and chronic lower extremity wounds who presents to the ER with SOB with exertion, orthopnea, subjective fevers in context of diet and perhaps medication noncompliance, denies NSAID use. She denies chest pain, palpitations , near or true syncope. Noted to be in rapid afib. Dr. Burleson spoke with Dr. Ratliff, pt's loss prevention representative in 2018. Pt was cardioverted twice, the last time about 3 years ago; LVEF, which had been poor, improved to nearly normal afterward. She was on amiodarone, and was maintaining sinus rhythm; he believes the dose had been decreased to 200 mg three times a week (he does not believe she had associated pulmonary,liver, or thyroid side effects); she was also on metoprolol. She had a stress MIBI about a year ago that showed no ischemia. However, he has not seen her in about 6 months, as she has spent more time with family in [place], and he is uncertain of her compliance to medications and diet. - Current Medication List Current Medications: Active Medications Acetaminophen (Tylenol -) 650 mg PO Q6H PRN PRN Reason: FEVER Last Admin: 02/01/19 13:26 Dose: 650 mg Furosemide (Lasix Injection -) 40 mg IVPUSH BID@0600,1400 [facility] Last Admin: 02/03/19 06:12 Dose: 40 mg Piperacillin Sod/Tazobactam (Sod 3.375 gm/ Dextrose) 50 mls @ 100 mls/hr IVPB Q8H-IV [facility]; Protocol Last Admin: 02/03/19 10:42 Dose: 100 mls/hr Levothyroxine Sodium (Synthroid -) 125 mcg PO DAILY@0700 [facility] Last Admin: 02/03/19 06:13 Dose: 125 mcg Metoprolol Succinate (Toprol Xl -) 100 mg PO DAILY [facility] Last Admin: 02/03/19 10:43 Dose: 100 mg Rivaroxaban (Xarelto) 20 mg PO DAILY@1800 [facility] Last Admin: 02/02/19 17:15 Dose: 20 mg Spironolactone (Aldactone -) 25 mg PO MoWeFr@1000 [facility] Last Admin: 02/02/19 09:53 Dose: 25 mg - Objective Vital Signs: Vital Signs Temperature 98.4 F 02/03/19 08:00 Pulse Rate 76 02/03/19 08:00 Respiratory Rate 20 02/03/19 08:00 Blood Pressure 119/70 02/03/19 08:00 O2 Sat by Pulse Oximetry (%) 100 02/03/19 09:00 Eyes: Yes: WNL, Conjunctiva Clear, EOM Intact HENT: Yes: WNL, Atraumatic, Normocephalic Neck: Yes: WNL, Supple, Trachea Midline Cardiovascular: Yes: WNL, Regular Rate and Rhythm Respiratory: Yes: WNL, Regular, CTA Bilaterally Gastrointestinal: Yes: WNL, Normal Bowel Sounds Genitourinary: Yes: WNL Musculoskeletal: Yes: WNL Extremities: Yes: WNL Edema: Yes Integumentary: Yes: WNL Neurological: Yes: WNL, Alert, Oriented ...Motor Strength: WNL Psychiatric: Yes: WNL Labs: CBC, BMP 02/03/19 05:35 02/03/19 05:35 INR, PTT INR 1.51 (0.83-1.09) H 01/31/19 21:19 Assessment/Plan 11/26/2018 Echo: Normal LV size and fxn, mild-mod MR, abnormal diastolic compliacne; borderline dilated LA 1. Acute on chronic diastolic heart failure in context of dietary indiscretion 2. Afib with RVR s/p 2 ablations 3. HTN 4. Hypothyroidism 5. Chronic venous stasis/lymphedema 6. Type 2 DM P:1. IV diuresis, Aldactone 25 qd with monitor diuretic response, renal fxn and electrolytes 2. Continue Toprol XL 100 qd, Xarelto 20 qd, add GAYLE-I/ARB as hemodynamics tolerate 3. Addressed importance of dietary, medication compliance cc time spent 36 min
--- NOTE | 2019-02-03 17:18 | PN ---
Progress Note (short form) - Note Progress Note: Hospitalist Medicine Receiving ECHO this AM. States that her breathing has improved Vitals 02/03/19 02/03/19 08:00 09:00 Temperature 98.4 F Pulse Rhythm [ Irregular Apical] Blood Pressure 119/70 O2 Sat by Pulse 100 Oximetry (%) Physical Exam general: resting in bed. pleasant HEENT: NCAT neck: supple cardio: +Irreg irreg. no r/m/g pulm: +rhonchi. without accessory m usage abdomen: obese, nontender, nondistended LE: 1+ pitting edema b/l. pulses intact neuro: director of financial aid 2-12 grossly intact Laboratory Tests 02/03/19 02/03/19 02/03/19 05:35 05:35 13:00 WBC 10.1 H Hgb 10.9 Hct 33.8 Plt Count 194 Sodium 141 Potassium 3.5 Chloride 104 Carbon Dioxide 31 BUN 20.5 H Creatinine 1.2 POC Glucometer 89 Microbiology 02/01/19 03:28 Urine For Antigen Detection Legionella Antigen - Final 02/01/19 03:28 Urine For Antigen Detection Streptococcus pneumoniae Antigen (M - Final 01/31/19 22:50 Urine - Urine Clean Catch Urine Culture - Final Klebsiella Pneumoniae 01/31/19 21:19 Blood - Peripheral Venous Blood Culture - Preliminary NO GROWTH OBTAINED AFTER 48 HOURS, INCUBATION TO CONTINUE FOR 3 DAYS. 01/31/19 21:19 Blood - Peripheral Venous Blood Culture - Preliminary NO GROWTH OBTAINED AFTER 48 HOURS, INCUBATION TO CONTINUE FOR 3 DAYS. Imaging 01/31/19: CXR: slight increase in central vascular markings since last study 02/01/19: abd sono: fatty infiltration of liver, right renal cysts EKG: +afib w/ RVR, qtc 478ms ECHO: LVSF normal in size, mild concentric LVH. paradoxical septal motion, EF 45 -50%. LA moderately dilated, RA mildly dilated. moderate aortic sclerosis. no hemodynamically significant valvular aortic stenosis. mild mitral annular calcification. Assessment/Plan 73 y/o F with PMH of CHF, afib (xarelto)Status post 2 ablations, CAD, BLE chronic venous stasis, hypothyroidism presenting with fever and shortness of breath. #Acute on chronic diastolic HF likely 2/2 poor diet -c/w IV lasix 40mg IVP BID -c/w aldactone -ECHO noted above -strict i/o, na control 2g, daily wts #Afib w/ RVR s/p 2 ablations -c/w toprol XL rate control -c/w xarelto -cardio consult: Dr. Gorman #NIDDM -on metformin at home; held -a1c 5.5, d/c ISS #UTI -c/w zosyn (02/01), await ID recs -will start bacid -c/t follow ucx, blood cx, legionella (-) -ID: Dr. Escoto #Hypothyroid -c/w synthroid #F/E/N avoid IVF as with CHF continue to follow lytes na controlled diet #PPX DVT: on xarelto #Dispo cont'd tele monitoring will need outpt PFTs, sleep study <Leigh Caceres - Last Filed: 02/03/19 17:23> - Note Progress Note: Seen and examined; please see resident note for further historical information. I personally verified all johns historical information and exam findings. Personally interpreted all imaging and diagnostics and reviewed appropriate consults. I reviewed all labs and vital signs as per resident note and EMR as documented. I agree with the above assessment and plan unless supplemented by myself in the following. Symptoms and HR improved; appreciate CV input. No new complaints and denied kulwinder CP or SOB. 10 sys ROS done and negative aside from HPI. NC AT EOMI PERRLA HR wnl, +s1/2 NT ND +BS Lungs with normal breath sounds, w/ sym exp Trachea mideline, no LN, no JVD CN2-12 wnl, no fnd noted Normal mood, appropriate behavior No rashes or skin breakdown noted 5/5 strength x4 ext with normal tone 11/20 2D echo: Normal LV size and fxn, mild-mod MR, abnormal diastolic compliance ; borderline dilated LA A/P: Her presenting symptoms continue to improve; appreciate input from cardiology and pulmonary services. Problems include: Acute on Chronic Resp. Failure 2/2 D-CHF Exacerbation -Acute on chronic diastolic heart failure in context of dietary indiscretion ( IV furosemide and SL per CV, c/w GDMT +/- GAYLE/ARB vs. Entresto depending on renal function, consult nutrition) Lactic Acidosis, improved R/O PNA (FU sputum, blood CX, viral PCR) ?Acute Cystitis with hematuria (covered by abx, +Nitrite. FU culture, ID consult ) Afib with RVR s/p 2 ablations (c/w BB, adjustments per CV. On AC) Hx CAD, no acute sx ACS. Continue Toprol XL Hx HTN, controlled Continue Toprol XL, Lasix, Aldactone Hx Hypothyroidism - Continue Synthroid. TSH wnl Hx Fe def Anemia, Noted past hx. Trend CBC Hx PAD, no s/s CLI Hx Chronic venous stasis/Lymphedema Full Code <Killian Baer - Last Filed: 02/04/19 07:52>
[2019-02-03] MEDS: LACTOBACILLUS ACIDOPHILUS 1 TABLET PO SCH (17:50)
[2019-02-03] MEDS: RIVAROXABAN 20 MG TABLET PO SCH (17:50)
[2019-02-04] MEDS: PIPERACILLIN/TAZOB 3.375 GM 3.375 GM in DEXTROSE 5%-WATER - 50 ML IVPB SCH ×2 (02:19→09:21)
[2019-02-04] MEDS: FUROSEMIDE 40 MG/4 ML INJECTABLE VIAL IVPUSH SCH ×2 (06:05→13:22)
[2019-02-04] MEDS: LEVOTHYROXINE NA 125 MCG TABLET (FP) PO SCH (06:06)
[2019-02-04 06:25] LABS: BASO % 0.8 % (0-2.0); EOS % 1.5 % (0-4.5); HEMATOCRIT 35.7 % (32.4-45.2); HEMOGLOBIN 11.3 GM/dL (10.7-15.3); LYMPH % 20.6 % (8-40); MCH 29.7 pg (25.7-33.7); MCHC 31.8 g/dl (32.0-36.0); MEAN CELL VOLUME 93.6 fl (80-96); MEAN PLT VOLUME 9.7 fl (7.5-11.1); NEUT % 66.1 % (42.8-82.8); PLATELET COUNT 209 K/MM3 (134-434); RBC 3.81 M/mm3 (3.60-5.2); WHITE BLOOD COUNT 9.3 K/mm3 (4.0-10.0)
[2019-02-04 07:03] LABS: BLOOD UREA NITROGEN 18.2 mg/dL (7-18); CALCIUM 8.8 mg/dL (8.5-10.1); CREATININE 1.1 mg/dL (0.55-1.3); MAGNESIUM 2.5 mg/dL (1.8-2.4); PHOSPHOROUS 3.8 mg/dL (2.5-4.9); POTASSIUM 4.2 mmol/L (3.5-5.1)
[2019-02-04] MEDS ORDERED: PIPERACILLIN/TAZOBACTAM 3.375 GM VIAL IVPB ONE (09:08)
[2019-02-04] MEDS ORDERED: DEXTROSE 5%-WATER - 50 ML IVPB ONE (09:09)
[2019-02-04] MEDS: SPIRONOLACTONE 25 MG TABLET (FP) PO SCH (09:21)
[2019-02-04] MEDS: LACTOBACILLUS ACIDOPHILUS 1 TABLET PO SCH (09:21)
--- NOTE | 2019-02-04 10:37 | PN ---
Progress Note (short form) - Note Progress Note: Hospitalist Medicine Sitting up in chair. Discussed pt's condition at length, all questions answered. Concerned, as had few loose BM's yesterday. Breathing better Vitals 02/04/19 02/04/19 06:00 09:00 Temperature 98.4 F Pulse Rate 83 Respiratory 20 Rate Blood Pressure 139/73 Physical Exam general: OOB in chair, pleasant HEENT: NCAT, PERRLA neck: supple cardio: +Irreg irreg. no r/m/g pulm: CTA b/l. no rhonchi, crackles, or accessory m usage abdomen: obese, nontender, nondistended LE: 1+ pitting edema b/l. pulses intact. + chronic changes 2/2 flea bites per pt , bullous changes neuro: glue cook 2-12 grossly intact Laboratory Tests 02/04/19 02/04/19 06:00 06:00 WBC 9.3 Hgb 11.3 Hct 35.7 Plt Count 209 Sodium 142 Potassium 4.2 Chloride 102 Anion Gap 6 L BUN 18.2 H Creatinine 1.1 Random Glucose 100 Magnesium 2.5 H Microbiology 02/01/19 03:28 Urine For Antigen Detection Legionella Antigen - Final 02/01/19 03:28 Urine For Antigen Detection Streptococcus pneumoniae Antigen (M - Final 01/31/19 22:50 Urine - Urine Clean Catch Urine Culture - Final Klebsiella Pneumoniae 01/31/19 21:19 Blood - Peripheral Venous Blood Culture - Preliminary NO GROWTH OBTAINED AFTER 72 HOURS, INCUBATION TO CONTINUE FOR 2 DAYS. 01/31/19 21:19 Blood - Peripheral Venous Blood Culture - Preliminary NO GROWTH OBTAINED AFTER 72 HOURS, INCUBATION TO CONTINUE FOR 2 DAYS. Assessment/plan 73 y/o F with PMH of CHF, afib (xarelto)Status post 2 ablations, CAD, BLE chronic venous stasis, hypothyroidism presenting with fever and shortness of breath. #Acute on chronic diastolic HF likely 2/2 poor diet -c/w IV lasix 40mg IVP BID -c/w aldactone -ECHO noted above -strict i/o, na control 2g, daily wts #Afib w/ RVR s/p 2 ablations -c/w toprol XL rate control -c/w xarelto -cardio consult: Dr. Gorman #NIDDM -on metformin at home; held -a1c 5.5, d/c ISS #UTI -c/w zosyn (02/01), d/w ID -will start bacid -c/t follow ucx, blood cx, legionella (-) -ID: Dr. Escoto #Hypothyroid -c/w synthroid #F/E/N avoid IVF as with CHF continue to follow lytes na controlled diet #PPX DVT: on xarelto #Dispo cont'd tele monitoring will need outpt PFTs, sleep study <Leigh Ccaeres - Last Filed: 02/04/19 15:27> - Note Progress Note: Seen and examined; I agree with thee above assessment and plan and DCS as documented. Discussed with resident and indicated subspecialists. Independently verified all johns historical elements and PE features. All questions answered. No further subjective issues; VS labs imaging reviewed NAD, AAO HR wnl, +s1/2 NT ND +BS Neuro baseline with no new FNDs or speech changes Agreee with resident asseesment and plan as documented above. Continue current txplan. <Killian Baer - Last Filed: 03/02/19 07:20>
--- NOTE | 2019-02-04 11:13 | PN ---
Progress Note, Physician History of Present Illness: 73 yr old woman with PMH of diastolic CHF, anemia, Afib (s/p 2 ablations, currently on xarelto), hypothyroid, PVD and CAD, chronic venous stasis/ lymphedema and chronic lower extremity wounds who presents to the ER with SOB with exertion, orthopnea, subjective fevers in context of diet and perhaps medication noncompliance, denies NSAID use. She denies chest pain, palpitations , near or true syncope. Noted to be in rapid afib. Dr. Burleson spoke with Dr. Ratliff, pt's carrier washer in 2018. Pt was cardioverted twice, the last time about 3 years ago; LVEF, which had been poor, improved to nearly normal afterward. She was on amiodarone, and was maintaining sinus rhythm; he believes the dose had been decreased to 200 mg three times a week (he does not believe she had associated pulmonary,liver, or thyroid side effects); she was also on metoprolol. She had a stress MIBI about a year ago that showed no ischemia. However, he has not seen her in about 6 months, as she has spent more time with family in [place], and he is uncertain of her compliance to medications and diet. - Current Medication List Current Medications: Active Medications Acetaminophen (Tylenol -) 650 mg PO Q6H PRN PRN Reason: FEVER Last Admin: 02/01/19 13:26 Dose: 650 mg Furosemide (Lasix Injection -) 40 mg IVPUSH BID@0600,1400 [facility] Last Admin: 02/04/19 06:05 Dose: 40 mg Piperacillin Sod/Tazobactam (Sod 3.375 gm/ Dextrose) 50 mls @ 100 mls/hr IVPB Q8H-IV ALYSSA; Protocol Last Admin: 02/04/19 09:21 Dose: 100 mls/hr Lactobacillus Acidophilus (Bacid -) 1 tab PO DAILY [facility] Last Admin: 02/04/19 09:21 Dose: 1 tab Levothyroxine Sodium (Synthroid -) 125 mcg PO DAILY@0700 [facility] Last Admin: 02/04/19 06:06 Dose: 125 mcg Metoprolol Succinate (Toprol Xl -) 100 mg PO DAILY [facility] Last Admin: 02/04/19 09:21 Dose: 100 mg Rivaroxaban (Xarelto) 20 mg PO DAILY@1800 [facility] Last Admin: 02/03/19 17:50 Dose: 20 mg Spironolactone (Aldactone -) 25 mg PO MoWeFr@1000 [facility] Last Admin: 02/04/19 09:21 Dose: 25 mg - Objective Vital Signs: Vital Signs Temperature 98.4 F 02/04/19 06:00 Pulse Rate 83 02/04/19 09:00 Respiratory Rate 20 02/04/19 09:00 Blood Pressure 139/73 02/04/19 09:00 O2 Sat by Pulse Oximetry (%) 96 02/04/19 09:00 Eyes: Yes: WNL, Conjunctiva Clear, EOM Intact HENT: Yes: WNL, Atraumatic, Normocephalic Neck: Yes: WNL, Supple, Trachea Midline Cardiovascular: Yes: Pulse Irregular Respiratory: Yes: WNL, Regular, CTA Bilaterally Gastrointestinal: Yes: WNL, Normal Bowel Sounds Genitourinary: Yes: WNL Musculoskeletal: Yes: WNL Extremities: Yes: WNL Edema: Yes Integumentary: Yes: WNL Neurological: Yes: WNL, Alert, Oriented ...Motor Strength: WNL Psychiatric: Yes: WNL Labs: CBC, BMP 02/04/19 06:00 02/04/19 06:00 INR, PTT INR 1.51 (0.83-1.09) H 01/31/19 21:19 Assessment/Plan 11/26/2018 Echo: Normal LV size and fxn, mild-mod MR, abnormal diastolic compliacne; borderline dilated LA 1. Acute on chronic diastolic heart failure in context of dietary indiscretion 2. Afib with RVR s/p 2 ablations 3. HTN 4. Hypothyroidism 5. Chronic venous stasis/lymphedema 6. Type 2 DM P:1. IV diuresis, Aldactone 25 qd with monitor diuretic response, renal fxn and electrolytes 2. Continue Toprol XL 100 qd, Xarelto 20 qd, add GAYLE-I/ARB as hemodynamics tolerate 3. Addressed importance of dietary, medication compliance cc time spent 36 min
--- NOTE | 2019-02-04 13:22 | PN ---
Progress Note (short form) - Note Progress Note: PULMONARY States breathing is improving. Leg swelling decreasing. Vital Signs Period Temp Pulse Resp BP Sys/Ray Pulse Ox Last 24 Hr 98.2 F-98.6 F 70-87 18-20 96-161/72-111 96-99 Intake & Output 02/01/19 02/02/19 02/03/19 02/04/19 23:59 23:59 23:59 23:59 Intake Total 1650 528 322 Output Total 1900 300 Balance -250 528 22 Weight 115.666 kg 117.979 kg Gen: NAD in chair Heart: RRR Lung: decreased breath sounds at the bases Abd: soft, nontender Ext: + edema CBC, BMP 02/04/19 06:00 02/04/19 06:00 Active Medications Acetaminophen (Tylenol -) 650 mg PO Q6H PRN PRN Reason: FEVER Last Admin: 02/01/19 13:26 Dose: 650 mg Furosemide (Lasix Injection -) 40 mg IVPUSH BID@0600,1400 [facility] Last Admin: 02/04/19 06:05 Dose: 40 mg Lactobacillus Acidophilus (Bacid -) 1 tab PO DAILY [facility] Last Admin: 02/04/19 09:21 Dose: 1 tab Levothyroxine Sodium (Synthroid -) 125 mcg PO DAILY@0700 [facility] Last Admin: 02/04/19 06:06 Dose: 125 mcg Metoprolol Succinate (Toprol Xl -) 100 mg PO DAILY [facility] Last Admin: 02/04/19 09:21 Dose: 100 mg Rivaroxaban (Xarelto) 20 mg PO DAILY@1800 [facility] Last Admin: 02/03/19 17:50 Dose: 20 mg Spironolactone (Aldactone -) 25 mg PO MoWeFr@1000 [facility] Last Admin: 02/04/19 09:21 Dose: 25 mg A/P Acute on Chronic Diastolic Heart Failure UTI CAD Atrial Fibrillation Hypothyroidism - continue lasix, aldactone - monitor urine output, creatinine - daily weights - O2 to keep SpO2 >90% - rate control - continue anticoagulation - completed antibiotics - outpt PFTs, NPSG
[2019-02-04] MEDS: RIVAROXABAN 20 MG TABLET PO SCH (17:14)
[2019-02-05] MEDS: LEVOTHYROXINE NA 125 MCG TABLET (FP) PO SCH (06:18)
[2019-02-05] MEDS: FUROSEMIDE 40 MG/4 ML INJECTABLE VIAL IVPUSH SCH (06:18)
[2019-02-05 06:19] LABS: BASO % 0.6 % (0-2.0); EOS % 1.9 % (0-4.5); HEMATOCRIT 34.9 % (32.4-45.2); HEMOGLOBIN 11.2 GM/dL (10.7-15.3); LYMPH % 29.2 % (8-40); MCH 29.7 pg (25.7-33.7); MCHC 32.2 g/dl (32.0-36.0); MEAN CELL VOLUME 92.4 fl (80-96); MEAN PLT VOLUME 9.2 fl (7.5-11.1); MONO % 11.9 % (3.8-10.2); NEUT % 56.4 % (42.8-82.8); PLATELET COUNT 229 K/MM3 (134-434); RBC 3.78 M/mm3 (3.60-5.2); RDW 16.7 % (11.6-15.6); WHITE BLOOD COUNT 7.2 K/mm3 (4.0-10.0)
[2019-02-05 06:33] LABS: BLOOD UREA NITROGEN 17.3 mg/dL (7-18); CALCIUM 8.7 mg/dL (8.5-10.1); POTASSIUM 3.3 mmol/L (3.5-5.1)
[2019-02-05] MEDS ORDERED: POTASSIUM CHLORIDE TABS 10 MEQ TABLET.ER (FP) PO ONE (07:29)
[2019-02-05] MEDS: LACTOBACILLUS ACIDOPHILUS 1 TABLET PO SCH (10:13)
--- NOTE | 2019-02-05 10:48 | PN ---
Progress Note, Physician Chief Complaint: Pt A&ox3; OOB in chair; no dyspnea, chest pain; c/o bilateral leg swelling, though improved since hospitalized. States she awaits results of LE "studies done by vascular MD". History of Present Illness: Ms. Zheng is a 73 y/o black woman with PMHx of CHF: mildly reduced systolic LVEF (Echo 11/20), CAD (Cath 2 years ago, No Stents or CABG), AFib (on Xarelto) , morbid obesity, PAD, Anemia, bilateral LE lymphedema, who has had recurrent admissions for CHF, most recently discharged from [facility] in December 2018 (treated for AFib, CHF, and LE Cellulitis). Pt presents to the ER with a complaint of fevers since this morning and progressive shortness of breath Pt was discharged from the hospital and was sent to rehab. She left rehab before she was scheduled to leave. Since that time, her shortness of breath has progressively worsened, reports JANG and Orthopnea No chest pain, no palpitations Patient reports medication compliance. 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 No dysuria No abdominal pain, diarrhea, nausea or vomiting No rash No recent medication changes, sick contacts. - Current Medication List Current Medications: Active Medications Acetaminophen (Tylenol -) 650 mg PO Q6H PRN PRN Reason: FEVER Last Admin: 02/01/19 13:26 Dose: 650 mg Furosemide (Lasix Injection -) 40 mg IVPUSH BID@0600,1400 [facility] Last Admin: 02/05/19 06:18 Dose: 40 mg Lactobacillus Acidophilus (Bacid -) 1 tab PO DAILY [facility] Last Admin: 02/05/19 10:13 Dose: 1 tab Levothyroxine Sodium (Synthroid -) 125 mcg PO DAILY@0700 [facility] Last Admin: 02/05/19 06:18 Dose: 125 mcg Metoprolol Succinate (Toprol Xl -) 100 mg PO DAILY [facility] Last Admin: 02/04/19 09:21 Dose: 100 mg Rivaroxaban (Xarelto) 20 mg PO DAILY@1800 [facility] Last Admin: 02/04/19 17:14 Dose: 20 mg Spironolactone (Aldactone -) 25 mg PO MoWeFr@1000 [facility] Last Admin: 02/04/19 09:21 Dose: 25 mg - Objective Vital Signs: Vital Signs Temperature 98.1 F 02/05/19 09:46 Pulse Rate 86 02/05/19 09:46 Respiratory Rate 16 02/05/19 09:46 Blood Pressure 117/70 02/05/19 09:46 O2 Sat by Pulse Oximetry (%) 98 02/05/19 09:00 Constitutional: Yes: Obese Cardiovascular: Yes: S1 (varies in intensity), S2 (split) Respiratory: Yes: Diminished, SOB on Exertion Gastrointestinal: Yes: Soft, Abdomen, Obese ...Rectal Exam: Yes: Deferred Genitourinary: No: Anuria Breast(s): Yes: WNL Musculoskeletal: Yes: Joint Stiffness, Muscle Weakness Extremities: Yes: Cool Edema: Yes Edema: LLE: 1+, RLE: 1+ Peripheral Pulses WNL: No Peripheral Pulses: Left Doralis Pedis: 1+, Right Dorsalis Pedis: 1+ Integumentary: Yes: Venous Stasis Changes Neurological: Yes: Alert, Oriented, Weakness Psychiatric: Yes: Alert, Oriented, Other Labs: CBC, BMP 02/05/19 05:40 02/05/19 05:40 INR, PTT INR 1.51 (0.83-1.09) H 01/31/19 21:19 - ....Imaging Chest X-ray: Image Reviewed EKG: Image Reviewed Problem List - Problems (1) Acute on chronic systolic and diastolic heart failure, NYHA class 2 Assessment/Plan: Pt A&Ox3; no JVD; not dyspneic. Uncontrolled HTN, likely a principle driving factor in pt's present admission, is now better controlled. On metoprolol ER, spironolactone. Add lisinopril 2.5 mg daily. CXR; plan to reduce furosemide dose, and change to PO. Replete K, and keep 4.0-4.5; keep Mg 2.0-2.4; keep PO4 2.5-4.9. F/u BUN/Cr, electrolytes, daily weight, Is and Os. F/u PVD with vascular MD. Code(s): I50.43 - ACUTE ON CHRONIC COMBINED SYSTOLIC AND DIASTOLIC HRT FAIL (2) Afib Assessment/Plan: on metoprolol ER for HR control and systolic CHF. On rivaroxaban for anticoagulation. Code(s): I48.91 - UNSPECIFIED ATRIAL FIBRILLATION Qualifiers: Atrial fibrillation type: other persistent Qualified Code(s): I48.19 - Other persistent atrial fibrillation (3) Lymphedema of both lower extremities Code(s): I89.0 - LYMPHEDEMA, NOT ELSEWHERE CLASSIFIED (4) Cellulitis Code(s): L03.90 - CELLULITIS, UNSPECIFIED Qualifiers: Site of cellulitis: extremity Site of cellulitis of extremity: lower extremity Laterality: left Qualified Code(s): L03.116 - Cellulitis of left lower limb (5) HTN (hypertension) Assessment/Plan: see "CHF". Code(s): I10 - ESSENTIAL (PRIMARY) HYPERTENSION Qualifiers: Hypertension type: essential hypertension Qualified Code(s): I10 - Essential (primary) hypertension (6) Hypothyroid Code(s): E03.9 - HYPOTHYROIDISM, UNSPECIFIED Qualifiers: Hypothyroidism type: unspecified Qualified Code(s): E03.9 - Hypothyroidism , unspecified (7) Morbid obesity Code(s): E66.01 - MORBID (SEVERE) OBESITY DUE TO EXCESS CALORIES
[2019-02-05] MEDS ORDERED: LISINOPRIL 5 MG TABLET (FP) PO ONE (10:51)
--- NOTE | 2019-02-05 12:50 | PN ---
Progress Note (short form) - Note Progress Note: Feels better today. Less SOB. No acute events overnight. Intake & Output 02/02/19 02/03/19 02/04/19 02/05/19 23:59 23:59 23:59 23:59 Intake Total 1650 528 982 100 Output Total 1900 300 Balance -250 528 682 100 Weight 255 lb 260 lb 1.6 oz 245 lb 3.2 oz Last Vital Signs Temp Pulse Resp BP Pulse Ox 98.1 F 86 16 117/70 98 02/05/19 09:46 02/05/19 09:46 02/05/19 09:46 02/05/19 09:46 02/05/19 09:00 Active Medications Acetaminophen (Tylenol -) 650 mg PO Q6H PRN PRN Reason: FEVER Last Admin: 02/01/19 13:26 Dose: 650 mg Furosemide (Lasix -) 40 mg PO DAILY [facility] Lactobacillus Acidophilus (Bacid -) 1 tab PO DAILY [facility] Last Admin: 02/05/19 10:13 Dose: 1 tab Levothyroxine Sodium (Synthroid -) 125 mcg PO DAILY@0700 [facility] Last Admin: 02/05/19 06:18 Dose: 125 mcg Lisinopril (Prinivil) 2.5 mg PO DAILY [facility] Metoprolol Succinate (Toprol Xl -) 100 mg PO DAILY [facility] Last Admin: 02/05/19 11:56 Dose: 100 mg Rivaroxaban (Xarelto) 20 mg PO DAILY@1800 [facility] Last Admin: 02/04/19 17:14 Dose: 20 mg Spironolactone (Aldactone -) 25 mg PO MoWeFr@1000 [facility] Last Admin: 02/04/19 09:21 Dose: 25 mg Constitutional: Yes: Awake and alert, No acute distress Eyes: Yes: Conjunctiva Clear, EOM Intact HENT: Yes: Atraumatic, Normocephalic Neck: Yes: Supple, Trachea Midline Cardiovascular: Yes: Pulse Irregular Respiratory: Yes: Cough, Diminished, On Nasal O2, Rales, Rhonchi. No: Accessory Muscle Use, Stridor, Wheezes ...Inspection: Yes: WNL ...Clubbing: No Gastrointestinal: Yes: Normal Bowel Sounds, Soft, Abdomen, Obese Renal/: Yes: WNL Musculoskeletal: Yes: Joint Stiffness, Joint Swelling Extremities: Yes: Delayed Capillary Refill, Erythema Edema: Yes Peripheral Pulses WNL: Yes Integumentary: Yes: Bruising, Venous Stasis Changes Neurological: Yes: WNL, Alert, Oriented ...Motor Strength: WNL Psychiatric: Yes: WNL, Alert, Oriented Labs: Laboratory Results - last 24 hr 02/05/19 02/05/19 05:40 05:40 WBC 7.2 RBC 3.78 Hgb 11.2 Hct 34.9 MCV 92.4 MCH 29.7 MCHC 32.2 RDW 16.7 H Plt Count 229 MPV 9.2 Absolute Neuts (auto) 4.1 Neutrophils % 56.4 Lymphocytes % 29.2 D Monocytes % 11.9 H Eosinophils % 1.9 Basophils % 0.6 Nucleated RBC % 0 Sodium 141 Potassium 3.3 L Chloride 102 Carbon Dioxide 32 Anion Gap 7 L BUN 17.3 Creatinine 1.0 Est GFR (CKD-EPI)AfAm 63.82 Est GFR (CKD-EPI)NonAf 55.07 Random Glucose 96 Calcium 8.7 Phosphorus 4.0 Magnesium 2.0 Problem List - Problems (1) Atrial fibrillation with RVR Code(s): I48.91 - UNSPECIFIED ATRIAL FIBRILLATION (2) CHF exacerbation Code(s): I50.9 - HEART FAILURE, UNSPECIFIED Qualifiers: Heart failure type: diastolic Qualified Code(s): I50.33 - Acute on chronic diastolic (congestive) heart failure (3) Lymphedema of both lower extremities Code(s): I89.0 - LYMPHEDEMA, NOT ELSEWHERE CLASSIFIED (4) Afib Code(s): I48.91 - UNSPECIFIED ATRIAL FIBRILLATION Qualifiers: Atrial fibrillation type: other persistent Qualified Code(s): I48.19 - Other persistent atrial fibrillation (5) Cellulitis Code(s): L03.90 - CELLULITIS, UNSPECIFIED Qualifiers: Site of cellulitis: extremity Site of cellulitis of extremity: lower extremity Laterality: left Qualified Code(s): L03.116 - Cellulitis of left lower limb (6) HTN (hypertension) Code(s): I10 - ESSENTIAL (PRIMARY) HYPERTENSION Qualifiers: Hypertension type: essential hypertension Qualified Code(s): I10 - Essential (primary) hypertension (7) Hypothyroid Code(s): E03.9 - HYPOTHYROIDISM, UNSPECIFIED Qualifiers: Hypothyroidism type: unspecified Qualified Code(s): E03.9 - Hypothyroidism , unspecified (8) Morbid obesity Code(s): E66.01 - MORBID (SEVERE) OBESITY DUE TO EXCESS CALORIES Assessment/Plan R/O OSAS Do not suspect PNA Do not suspect COPD Will need outpatient PFTs Will need Sleep Screen Daily weights Lasix No smoking DC planning Dr Chua Problem List - Problems (1) Atrial fibrillation with RVR Code(s): I48.91 - UNSPECIFIED ATRIAL FIBRILLATION (2) CHF exacerbation Code(s): I50.9 - HEART FAILURE, UNSPECIFIED Qualifiers: Heart failure type: diastolic Qualified Code(s): I50.33 - Acute on chronic diastolic (congestive) heart failure (3) Lymphedema of both lower extremities Code(s): I89.0 - LYMPHEDEMA, NOT ELSEWHERE CLASSIFIED (4) Afib Code(s): I48.91 - UNSPECIFIED ATRIAL FIBRILLATION Qualifiers: Atrial fibrillation type: other persistent Qualified Code(s): I48.19 - Other persistent atrial fibrillation (5) Cellulitis Code(s): L03.90 - CELLULITIS, UNSPECIFIED Qualifiers: Site of cellulitis: extremity Site of cellulitis of extremity: lower extremity Laterality: left Qualified Code(s): L03.116 - Cellulitis of left lower limb (6) HTN (hypertension) Code(s): I10 - ESSENTIAL (PRIMARY) HYPERTENSION Qualifiers: Hypertension type: essential hypertension Qualified Code(s): I10 - Essential (primary) hypertension (7) Hypothyroid Code(s): E03.9 - HYPOTHYROIDISM, UNSPECIFIED Qualifiers: Hypothyroidism type: unspecified Qualified Code(s): E03.9 - Hypothyroidism , unspecified (8) Morbid obesity Code(s): E66.01 - MORBID (SEVERE) OBESITY DUE TO EXCESS CALORIES
--- NOTE | 2019-02-05 13:11 | PN ---
Progress Note, Physician History of Present Illness: stable no new issues - Current Medication List Current Medications: Active Medications Acetaminophen (Tylenol -) 650 mg PO Q6H PRN PRN Reason: FEVER Last Admin: 02/01/19 13:26 Dose: 650 mg Furosemide (Lasix -) 40 mg PO DAILY [facility] Lactobacillus Acidophilus (Bacid -) 1 tab PO DAILY [facility] Last Admin: 02/05/19 10:13 Dose: 1 tab Levothyroxine Sodium (Synthroid -) 125 mcg PO DAILY@0700 [facility] Last Admin: 02/05/19 06:18 Dose: 125 mcg Lisinopril (Prinivil) 2.5 mg PO DAILY [facility] Metoprolol Succinate (Toprol Xl -) 100 mg PO DAILY [facility] Last Admin: 02/05/19 11:56 Dose: 100 mg Rivaroxaban (Xarelto) 20 mg PO DAILY@1800 [facility] Last Admin: 02/04/19 17:14 Dose: 20 mg Spironolactone (Aldactone -) 25 mg PO MoWeFr@1000 [facility] Last Admin: 02/04/19 09:21 Dose: 25 mg - Objective Vital Signs: Vital Signs Temperature 98.1 F 02/05/19 09:46 Pulse Rate 86 02/05/19 09:46 Respiratory Rate 16 02/05/19 09:46 Blood Pressure 117/70 02/05/19 09:46 O2 Sat by Pulse Oximetry (%) 98 02/05/19 09:00 Constitutional: Yes: No Distress, Calm Cardiovascular: Yes: S1, S2 Respiratory: Yes: Regular, CTA Bilaterally Gastrointestinal: Yes: Normal Bowel Sounds, Soft Musculoskeletal: Yes: WNL Extremities: Yes: WNL Neurological: Yes: Alert, Oriented Psychiatric: Yes: Alert Labs: CBC, BMP 02/05/19 05:40 02/05/19 05:40 INR, PTT INR 1.51 (0.83-1.09) H 01/31/19 21:19 Assessment/Plan Problem List - Problems (1) Atrial fibrillation with RVR Code(s): I48.91 - UNSPECIFIED ATRIAL FIBRILLATION (2) CHF exacerbation Code(s): I50.9 - HEART FAILURE, UNSPECIFIED Qualifiers: Heart failure type: diastolic Qualified Code(s): I50.33 - Acute on chronic diastolic (congestive) heart failure (3) Lymphedema of both lower extremities Code(s): I89.0 - LYMPHEDEMA, NOT ELSEWHERE CLASSIFIED (4) Afib Code(s): I48.91 - UNSPECIFIED ATRIAL FIBRILLATION Qualifiers: Atrial fibrillation type: other persistent Qualified Code(s): I48.19 - Other persistent atrial fibrillation (5) Cellulitis Code(s): L03.90 - CELLULITIS, UNSPECIFIED Qualifiers: Site of cellulitis: extremity Site of cellulitis of extremity: lower extremity Laterality: left Qualified Code(s): L03.116 - Cellulitis of left lower limb (6) HTN (hypertension) Code(s): I10 - ESSENTIAL (PRIMARY) HYPERTENSION Qualifiers: Hypertension type: essential hypertension Qualified Code(s): I10 - Essential (primary) hypertension (7) Hypothyroid Code(s): E03.9 - HYPOTHYROIDISM, UNSPECIFIED Qualifiers: Hypothyroidism type: unspecified Qualified Code(s): E03.9 - Hypothyroidism , unspecified (8) Morbid obesity Code(s): E66.01 - MORBID (SEVERE) OBESITY DUE TO EXCESS CALORIES plan continue current mgmt rest as per the team
[2019-02-05 13:45] VITALS: TEMP 98.2
[2019-02-05 14:05] VITALS: BP 128/82; PULSE 88
--- NOTE | 2019-02-05 18:20 | DS ---
Addendum entered and electronically signed by Leigh Caceres, RESIDENT 02/05/19 18 :20: Will need outpatient PFTs Will need Sleep Screen on d/c Original Note: Physical Exam: SUBJECTIVE: Patient seen and examined at bedside. In good spirits, ready to go home OBJECTIVE: Vital Signs Period Temp Pulse Resp BP Sys/Ray Pulse Ox Last 24 Hr 98 F-98.4 F 72-88 14-16 117-168/69-97 96-98 Physical Exam general: OOB in chair, pleasant HEENT: NCAT, PERRLA neck: supple cardio: +Irreg irreg. no r/m/g pulm: CTA b/l. no rhonchi, crackles, or accessory m usage abdomen: obese, nontender, nondistended LE: 1+ pitting edema b/l. pulses intact. 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 LABS Laboratory Results - last 24 hr 02/05/19 02/05/19 05:40 05:40 WBC 7.2 RBC 3.78 Hgb 11.2 Hct 34.9 MCV 92.4 MCH 29.7 MCHC 32.2 RDW 16.7 H Plt Count 229 MPV 9.2 Absolute Neuts (auto) 4.1 Neutrophils % 56.4 Lymphocytes % 29.2 D Monocytes % 11.9 H Eosinophils % 1.9 Basophils % 0.6 Nucleated RBC % 0 Sodium 141 Potassium 3.3 L Chloride 102 Carbon Dioxide 32 Anion Gap 7 L BUN 17.3 Creatinine 1.0 Est GFR (CKD-EPI)AfAm 63.82 Est GFR (CKD-EPI)NonAf 55.07 Random Glucose 96 Calcium 8.7 Phosphorus 4.0 Magnesium 2.0 01/31/19 02/02/19 02/03/19 21:08 06:10 05:35 WBC 15.2 H 12.5 H 10.1 H Hgb 13.0 10.3 L 10.9 Hct 40.8 D 32.2 L D 33.8 Plt Count 240 D 165 D 194 02/04/19 02/05/19 06:00 05:40 WBC 9.3 7.2 Hgb 11.3 11.2 Hct 35.7 34.9 Plt Count 209 229 01/31/19 21:19 PT with INR 17.90 H INR 1.51 H PTT (Actin FS) 33.4 01/31/19 21:19 VBG pH 7.43 H POC VBG pCO2 36.5 L POC VBG pO2 50.0 H VBG HCO3 23.9 VBG O2 Sat (Breana) 84.4 H VBG Base Excess 0.5 02/03/19 02/04/19 02/05/19 05:35 06:00 05:40 Sodium 141 141 Potassium 3.5 4.2 3.3 L Chloride 104 102 102 Carbon Dioxide 31 34 H 32 Anion Gap 6 L 6 L 7 L BUN 20.5 H 18.2 H 17.3 Creatinine 1.0 Calcium 8.5 8.8 8.7 Phosphorus 3.3 4.0 Magnesium 2.4 2.5 H 2.0 01/31/19 22:50 Urine Color Yellow Urine Appearance Cloudy Urine pH 5.0 Ur Specific [place] 1.032 Urine Protein 3+ H Urine Glucose (UA) Trace Urine Ketones Trace H Urine Blood 2+ H Urine Nitrite Positive H 02/01/19 00:39 Influenza A (Rapid) Negative Influenza B (Rapid) Negative Microbiology 02/01/19 03:28 Urine For Antigen Detection Legionella Antigen - Final 02/01/19 03:28 Urine For Antigen Detection Streptococcus pneumoniae Antigen (M - Final 01/31/19 22:50 Urine - Urine Clean Catch Urine Culture - Final Klebsiella Pneumoniae 01/31/19 21:19 Blood - Peripheral Venous Blood Culture - Preliminary NO GROWTH OBTAINED AFTER 72 HOURS, INCUBATION TO CONTINUE FOR 2 DAYS. 01/31/19 21:19 Blood - Peripheral Venous Blood Culture - Preliminary NO GROWTH OBTAINED AFTER 72 HOURS, INCUBATION TO CONTINUE FOR 2 DAYS. Imaging 01/31/19: CXR: slight increase in central vascular markings since last study 02/01/19: abd sono: fatty infiltration of liver, right renal cysts EKG: +afib w/ RVR, qtc 478ms ECHO: LVSF normal in size, mild concentric LVH. paradoxical septal motion, EF 45 -50%. LA moderately dilated, RA mildly dilated. moderate aortic sclerosis. no hemodynamically significant valvular aortic stenosis. mild mitral annular calcification. HOSPITAL COURSE: Date of Admission:01/31/19 Date of Discharge: 02/05/19 73 y/o F with PMH of CHF, afib (xarelto)Status post 2 ablations, CAD, BLE chronic venous stasis, hypothyroidism presenting with fever and shortness of breath. #Acute on chronic diastolic HF likely 2/2 poor diet -d/c home on lasix 40mg PO qd -c/w aldactone -ECHO noted above -strict i/o, na control 2g, daily wts #Afib w/ RVR s/p 2 ablations -c/w toprol XL rate control -c/w xarelto #HTN -lisinopril 2.5mg qd added to her regimen, d/c on -c/w toprol XL #NIDDM -on metformin at home; held -a1c 5.5, d/c ISS #UTI -completed course of zosyn. no abx on dc -will start bacid; continue on dc -c/t follow ucx, blood cx, legionella (-) #Hypothyroid -c/w synthroid Minutes to complete discharge: 44 <Leigh Caceres - Last Filed: 02/05/19 18:15> Physical Exam: Seeen and examined; I agree with thee above assessment and plan and DCS as documented. Discussed with resident and indicated subspecialists. Independently verified all johns historical elements and PE features. All questions answered. No further subjective issues; patient has reached maximum benefit from hospital stay. VS labs imaging reviewed NAD, AAO HR wnl, +s1/2 NT ND +BS Neuro baseline with no new FNDs or speech changes Agree with DC plan as indicated including discussion of diet, activity, and followups. <Killian Baer - Last Filed: 03/02/19 06:55> Discharge Summary Problems reviewed: Yes Reason For Visit: ACUTE ON CHRONIC HEART FAILURE,ATRIAL FIBRILLATION - Home Medications Comprehensive Discharge Medication List: Ambulatory Orders Levothyroxine Sodium [Synthroid] 125 mcg PO DAILY 04/10/17 Rivaroxaban [Xarelto -] 20 mg PO HS 04/10/17 Albuterol Sulfate Inhaler - [Ventolin HFA Inhaler -] 1 - 2 inh PO Q6H PRN #1 inhaler 11/28/18 Metoprolol Succinate [Toprol XL -] 100 mg PO DAILY #30 tab.sr.24h 11/28/18 Spironolactone [Aldactone] 25 mg PO MOWEFR #20 tablet 11/28/18 Ferrous Sulfate [Feosol] 325 mg PO BID #60 ud 12/31/18 Ipratropium 0.02% Nebulizer [Atrovent 0.02% Nebulizer -] 1 neb NEB QID 01/31/19 Ipratropium [place] [Atrovent Hfa] 2.5 gm IH QID PRN 01/31/19 Furosemide [Lasix -] 40 mg PO DAILY #30 tablet 02/05/19 Lactobacillus Acidophilus [Bacid -] 1 tab PO DAILY #30 tab 02/05/19 Lisinopril [Prinivil] 2.5 mg PO DAILY #30 tablet 02/05/19 <Leigh Caceres - Last Filed: 02/05/19 18:15> - Home Medications Comprehensive Discharge Medication List: Ambulatory Orders Levothyroxine Sodium [Synthroid] 125 mcg PO DAILY 04/10/17 Spironolactone [Aldactone] 25 mg PO MOWEFR #20 tablet 11/28/18 Ipratropium 0.02% Nebulizer [Atrovent 0.02% Nebulizer -] 1 neb NEB QID 01/31/19 Ipratropium [place] [Atrovent Hfa] 2.5 gm IH QID PRN 01/31/19 Furosemide [Lasix -] 40 mg PO DAILY #30 tablet 02/05/19 Lactobacillus Acidophilus [Bacid -] 1 tab PO DAILY #30 tab 02/05/19 Acetaminophen [Tylenol .Regular Strength -] 650 mg PO Q6H PRN tablet 02/21/19 Albuterol Sulfate Inhaler - [Ventolin HFA Inhaler -] 1 - 2 inh PO Q6H PRN #1 inhaler 02/21/19 Amlodipine Besylate [Norvasc -] 10 mg PO DAILY 30 Days #30 tablet 02/21/19 Amox-Tr/K Cl [Augmentin 875-125mg Tablet -] 1 tab PO BID@0800,1730 3 Days #7 tablet 02/21/19 Aspirin Coated [Ecotrin -] 81 mg PO DAILY tablet.ec 02/21/19 Atorvastatin Ca [Lipitor] 40 mg PO HS 30 Days #30 tablet 02/21/19 Ferrous Sulfate [Feosol] 325 mg PO BID #60 ud 02/21/19 Furosemide [Lasix -] 40 mg PO DAILY 30 Days #30 tablet 02/21/19 Lisinopril [Prinivil] 5 mg PO DAILY 30 Days #30 tablet 02/21/19 Metoprolol Succinate [Toprol XL -] 100 mg PO DAILY #30 tab.sr.24h 02/21/19 Rivaroxaban [Xarelto -] 20 mg PO HS 30 Days #30 tablet 02/21/19 Sennosides [Senna -] 1 tab PO HS tablet 02/21/19 Tetrahydrozoline HCl [Visine -] 1 drop OU BID 10 Days #1 drops 02/21/19 <Killian aBer - Last Filed: 03/02/19 06:55> Condition: Improved - Instructions Diet, Activity, Other Instructions: You were in the hospital for shortness of breath. We found that this was likely due to an exacerbation of your CHF. You were diuresed with IV lasix and improved. While you were here, your atrial fibrillation was also controlled with medications, and your urinary tract infection was treated with IV antibiotics. You have improved and are being sent home. Medications 1. Lisinopril 2.5 mg (1 pill) daily has been added to help control your blood pressure. Please take this daily. 2. Your lasix dose has been changed to 40mg daily from 80mg daily. 3. Take probiotic, bacid daily (1 pill). This will help your gut health.] 4. We have discontinued your metformin, since your a1c (diabetic number) is 5.6. Your blood glucose was controlled in the hospital as well. Please discuss this with your primary care doctor. 4. You may continue your other home medications, including your xarelto. Testing You had an ECHO (picture taken of your heart) while you were here. It showed an ejection fraction of 45-50%, with mild reduction in your left ventricle systolic function. Your left atrium is moderately dilated. You have moderate aortic sclerosis. You will need outpatient pulmonary function tests and a sleep study. Care -Please have your renal function tested, as well as your electrolytes. 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 Guallpa, your primary care doctor in 3-5 days after your discharge to discuss your visit. -Dr. Burleson, your garbage depot worker - in 1 week -Dr. Sharma, your pulmonary doctor - 1 week Referrals: Dr. Ramu [Other] - 02/09/19 Dr. Edith [Other] - 1 Week Benjamin Burleson MD [Staff Physician] - 1 Week Disposition: HOME This patient is new to me today: No Emergency Visit: No Critical Care patient: No - Discharge Referral Referred to [facility] No <Leigh Caceres - Last Filed: 02/05/19 18:15> ATTENDING PHYSICIAN STATEMENT I saw and evaluated the patient. I reviewed the resident's note and discussed the case with the resident. I agree with the resident's findings and plan as documented. SUBJECTIVE: OBJECTIVE: ASSESSMENT AND PLAN: <Leigh Caceres - Last Filed: 02/05/19 18:15> ATTENDING PHYSICIAN STATEMENT I saw and evaluated the patient. I reviewed the resident's note and discussed the case with the resident. I agree with the resident's findings and plan as documented. SUBJECTIVE: OBJECTIVE: ASSESSMENT AND PLAN: <Killian Baer - Last Filed: 03/02/19 06:55>
[2019-02-06] MEDS ORDERED: LISINOPRIL 5 MG TABLET (FP) PO SCH (10:00)
[2019-02-06] MEDS ORDERED: FUROSEMIDE 40 MG TABLET (FP) PO SCH (10:00)
--- NOTE | 2019-02-10 09:38 | PN ---
Progress Note, Physician History of Present Illness: stale improving - Objective Vital Signs: Vital Signs Temperature 98.2 F 02/05/19 14:00 Pulse Rate 88 02/05/19 14:00 Respiratory Rate 16 02/05/19 14:00 Blood Pressure 128/82 02/05/19 14:00 O2 Sat by Pulse Oximetry (%) 98 02/05/19 09:00 Constitutional: Yes: No Distress, Calm Cardiovascular: Yes: S1, S2 Respiratory: Yes: Regular, CTA Bilaterally Gastrointestinal: Yes: Normal Bowel Sounds, Soft Musculoskeletal: Yes: WNL Extremities: Yes: WNL Neurological: Yes: Alert, Oriented Labs: CBC, BMP 02/05/19 05:40 02/05/19 05:40 INR, PTT INR 1.51 (0.83-1.09) H 01/31/19 21:19 Assessment/Plan patient who came in with ams sob,now doing well urine cx noted continue abx
--- NOTE | 2019-02-10 09:41 | PN ---
Progress Note, Physician History of Present Illness: improving less sob - Objective Vital Signs: Vital Signs Temperature 98.2 F 02/05/19 14:00 Pulse Rate 88 02/05/19 14:00 Respiratory Rate 16 02/05/19 14:00 Blood Pressure 128/82 02/05/19 14:00 O2 Sat by Pulse Oximetry (%) 98 02/05/19 09:00 Constitutional: Yes: No Distress, Calm Cardiovascular: Yes: S1, S2 Respiratory: Yes: Regular, Other Gastrointestinal: Yes: Normal Bowel Sounds, Soft Musculoskeletal: Yes: WNL Extremities: Yes: WNL Neurological: Yes: Alert Labs: CBC, BMP 02/05/19 05:40 02/05/19 05:40 INR, PTT INR 1.51 (0.83-1.09) H 01/31/19 21:19 Assessment/Plan Problem List - Problems (1) Atrial fibrillation with RVR Code(s): I48.91 - UNSPECIFIED ATRIAL FIBRILLATION (2) CHF exacerbation Code(s): I50.9 - HEART FAILURE, UNSPECIFIED Qualifiers: Heart failure type: diastolic Qualified Code(s): I50.33 - Acute on chronic diastolic (congestive) heart failure (3) Lymphedema of both lower extremities Code(s): I89.0 - LYMPHEDEMA, NOT ELSEWHERE CLASSIFIED (4) Afib Code(s): I48.91 - UNSPECIFIED ATRIAL FIBRILLATION Qualifiers: Atrial fibrillation type: other persistent Qualified Code(s): I48.19 - Other persistent atrial fibrillation (5) Cellulitis Code(s): L03.90 - CELLULITIS, UNSPECIFIED Qualifiers: Site of cellulitis: extremity Site of cellulitis of extremity: lower extremity Laterality: left Qualified Code(s): L03.116 - Cellulitis of left lower limb (6) HTN (hypertension) Code(s): I10 - ESSENTIAL (PRIMARY) HYPERTENSION Qualifiers: Hypertension type: essential hypertension Qualified Code(s): I10 - Essential (primary) hypertension (7) Hypothyroid Code(s): E03.9 - HYPOTHYROIDISM, UNSPECIFIED Qualifiers: Hypothyroidism type: unspecified Qualified Code(s): E03.9 - Hypothyroidism , unspecified (8) Morbid obesity Code(s): E66.01 - MORBID (SEVERE) OBESITY DUE TO EXCESS CALORIES plan continue current mgmt resp support rest as per the team
== END 2019-02-05 17:54 | disposition home or self-care (01) | DRG 291 ==
LOC: JER 18:49 → JERBED 23:47 → JICU 02-02 02:14 → J2W 02-02 18:47
PROVIDERS: ADMIT Internal Medicine; ATTEND Internal Medicine
DX: I11.0 Hypertensive heart disease with heart failure (principal); J96.20 Acute and chronic respiratory failure, unspecified whether with hypoxia or hypercapnia; E87.2 Acidosis; Z68.41 Body mass index [BMI] 40.0-44.9, adult; N39.0 Urinary tract infection, site not specified; I50.33 Acute on chronic diastolic (congestive) heart failure; I48.91 Unspecified atrial fibrillation; E11.9 Type 2 diabetes mellitus without complications; E66.01 Morbid (severe) obesity due to excess calories; E03.9 Hypothyroidism, unspecified; I25.10 Atherosclerotic heart disease of native coronary artery without angina pectoris; E87.70 Fluid overload, unspecified
CPT/HCPCS: 36415; 71045-TC-FY; 76700-TC; 80048; 80053; 81003; 82803; 82962; 83036; 83605; 83735; 83880; 84100; 84443; 84484; 85025; 85610; 85730; 87040; 87086; 87186; 87804; 87899; 93005; 93010; 93306-TC; 97116-GP; 97161-GP; 99284-25; G0008; J0131; J7030; Q2036

== ENCOUNTER 2019-02-14 15:46 | Inpatient (IN) | payer OTHER ==
--- NOTE | 2019-02-14 15:52 | PDOC ---
History of Present Illness - General Stated Complaint: FALL Time Seen by Provider: 02/14/19 15:52 History Source: Patient, Family Exam Limitations: Clinical Condition - History of Present Illness Initial Comments: 73-year-old female with past medical history of CHF on 40 mg of Lasix BID, atrial fibrillation on eliquis, CAD with cardiac cath (no stents), bilateral chronic venous stasis, hypothyroidism, diabetes, urinary incontinence brought in by ambulance emergency department after being found down on the ground by her daughter. The daughter reported that she saw the patient at around 10:30 in the morning and she was at her usual health, but she believes the patient wouldn t be honest if she was truly feeling bad. The daughter reported that when she return to the home around 2:30 PM she found the patient on the ground, and at the time the patient was awake alert, but confused. She reported a similar episode has happened before when she had urosepsis, and she very quickly can deteriorate. Patient reported she doesnt remember the circumstances of the event, doesnt remember the fall, she reported no pain at all, she would respond yes or no answers. She denied chest pain, back pain, abdominal pain, upper extremity pain, lower actually pain, neck pain, headache. ROS General: admitted to fever, chills, generalized weakness. HEENT: denied sore throat, rhinorrhea, ear pain. Cardiovascular: admitted to syncope. denied chest pain, palpitations, diaphoresis. Respiratory: admitted to shortness of breath. admitted denied cough, sputum production, hemoptysis. Gastrointestinal: denied abdominal pain, nausea, vomiting, diarrhea, constipation, blood in stool. Genitourinary: admitted to urinary incontinence. denied dysuria, increased urinary frequency, hematuria, urinary incontinence, flank pain. Back: denied back pain. Musculoskeletal: denied joint pain, muscle pain, joint swelling. Neurological: denied headache, dizziness, numbness, tingling, weakness. Integumentary: denied rash, laceration, abrasion. Hematologic/Lymphatic: denied bruising or bleeding. PE Constitutional: Well-nourished, Well-developed, appearing stated age. Airway: intact Breathing: bilateral breath sounds Circulation: 2+ carotid pulse B/L HEENT: right frontal scalp hematoma. No facial bones tenderness to palpation. No velásquez sign. No raccoon eyes. EOMI. PERRLA. Neck: supple. Full ROM. no midline c-spine tenderness to palpation. No step offs. Cardiovascular: irregularly irregular heart rhythm. no murmurs. Chest wall: no seatbelt sign. No tenderness to palpation of anterior chest wall. No deformity to anterior chest wall. Respiratory: coarse breath sounds bilaterally. crackles bilaterally. speaking one word sentences. labored breathing. Gastrointestinal: soft, nontender. normal bowel sounds. no rebound, guarding, masses. No ecchymoses. Back: positive midline T-spine tenderness to palpation. negative L-spine tenderness to palpation. No step offs. Pelvis: lower extremities equal in length without external rotation. No hip tenderness to palpation. Extremities: peripheral pulses intact. 4+ pitting edema bilaterally. Neurological: CN 2-12 grossly intact. moves all four extremities. Psych: awake, alert, oriented x3. follows commands. answers questions appropriately. tPA Exclusion checklist 3-4.5h - Time Elapsed Date last known well: 02/14/19 Time last known well: 10:30 Elaspsed time: Day(s) and 8 Hour(s) and 34 Minutes - Thrombolytic Therapy Candidate Is patient eligible for thrombolytic therapy: No - Exclusion Criteria 3-4.5 hr SBP greater than 185 or DBP greater than 110mmHg despite tx: No Recent IC/spinal surgery,head trauma or stroke<3mos.: No Hx IC hemorrhage, IC neoplasm, AV malformation or aneurysm: No Active internal bleeding: No Blding diathesis(low plt ct, inc PTT,INR>1.7 or use of NOAC): No Symptoms suggest subarachnoid hemorrhage: No CT demonstrates multilobar infarct(>1/3 cerebral hemiphere): No Arterial puncture at noncompressible site in previous 7 days: No Blood glucose concentration less than 50mg/dL (2.7mmol/L): No - Relative Exclusion Criteria 3-4.5 hr Life expectancy <1 yr or severe co-morbid illness: No : No Patient/family refused: No Rapid improvement: No Stroke severity too mild: No Recent acute ND (w/in previous 3 months): No Seizure at onset with postictal residual neuro impairments: No Major surgery or serious trauma w/in previous 14 days: No Recent GI or hemorrhage (w/in previous 21 days): No - Add'l Relative Exclusion 3-4.5 hr Age > 80: No Hx of both diabetes AND prior ischemic stroke: No Taking an oral anticoagulant regardless of INR: Yes NIHSS >25: No - Ineligibility reason(s) Reasons No tPA given: Outside of window - delayed arrival Past History - Past Medical History Allergies/Adverse Reactions: Allergies Allergy/AdvReac Type Severity Reaction Status Date / Time shrimp Allergy Hives Verified 01/31/19 19:06 Home Medications: Ambulatory Orders Levothyroxine Sodium [Synthroid] 125 mcg PO DAILY 04/10/17 Rivaroxaban [Xarelto -] 20 mg PO HS 04/10/17 Albuterol Sulfate Inhaler - [Ventolin HFA Inhaler -] 1 - 2 inh PO Q6H PRN #1 inhaler 11/28/18 Metoprolol Succinate [Toprol XL -] 100 mg PO DAILY #30 tab.sr.24h 11/28/18 Spironolactone [Aldactone] 25 mg PO MOWEFR #20 tablet 11/28/18 Ferrous Sulfate [Feosol] 325 mg PO BID #60 ud 12/31/18 Ipratropium 0.02% Nebulizer [Atrovent 0.02% Nebulizer -] 1 neb NEB QID 01/31/19 Ipratropium [place] [Atrovent Hfa] 2.5 gm IH QID PRN 01/31/19 Furosemide [Lasix -] 40 mg PO DAILY #30 tablet 02/05/19 Lactobacillus Acidophilus [Bacid -] 1 tab PO DAILY #30 tab 02/05/19 Lisinopril [Prinivil] 2.5 mg PO DAILY #30 tablet 02/05/19 - Psycho Social/Smoking Cessation Hx Smoking History: Never smoked Have you smoked in the past 12 months: No If you are a former smoker, when did you quit?: 40 yrs ago Hx Alcohol Use: No Drug/Substance Use Hx: No Substance Use Type: None Hx Substance Use Treatment: No ED Treatment Course - LABORATORY CBC & Chemistry Diagram: 02/14/19 16:34 02/14/19 16:34 Medical Decision Making - Medical Decision Making 73 year old female with above PMH presented to ED via ambulance after being found down around 1430 today. Initial Vital Signs Temp Pulse Resp BP Pulse Ox 104.4 F H 146 H 33 H 182/133 H 94 L 02/14/19 16:21 02/14/19 16:21 02/14/19 16:21 02/14/19 16:21 02/14/19 16:21 Febrile. Tachycardic. Tachypneic. Hypertensive. Mild ypoxia on room air. -Improvement of O2 sat on 3L NC EKG performed at 1558: rate 159, irregularly irregular rhythm, normal axis, QTc 474, no acute ST changes. Pt placed on BIPAP. Nitro Drip ordered. Vancomycin and Zosyn given. Tylenol given. EKG performed at 1558: irregularly irregular rhythm. rate 159. normal axis. QTc 474. no acute ST changes. CXR my view: cardiomegaly. no infiltrate. pulmonary vascular congestion. -Pending official report 02/14/19 18:37 Radiology called to report acute basal ganglia lacunar infarct. Dr. Blevins consulted, he recommended MRI, carotid US, ECHO, full dose ASA, lipid profile. Pt is out of window for TPA. Would not transfer for intervention. Laboratory Last Values WBC 21.4 K/mm3 (4.0-10.0) H 02/14/19 16:34 RBC 4.42 M/mm3 (3.60-5.2) 02/14/19 16:34 Hgb 13.0 GM/dL (10.7-15.3) 02/14/19 16:34 Hct 40.9 % (32.4-45.2) D 02/14/19 16:34 MCV 92.5 fl (80-96) 02/14/19 16:34 MCH 29.4 pg (25.7-33.7) 02/14/19 16:34 MCHC 31.8 g/dl (32.0-36.0) L 02/14/19 16:34 RDW 17.0 % (11.6-15.6) H 02/14/19 16:34 Plt Count 226 K/MM3 (134-434) 02/14/19 16:34 MPV 9.9 fl (7.5-11.1) 02/14/19 16:34 Absolute Neuts (auto) 19.1 K/mm3 (1.5-8.0) H 02/14/19 16:34 Neutrophils % 89.3 % (42.8-82.8) H D 02/14/19 16:34 Neutrophils % (Manual) 90.0 % (42.8-82.8) H 02/14/19 16:34 Band Neutrophils % 2.0 % 02/14/19 16:34 Lymphocytes % 5.2 % (8-40) L D 02/14/19 16:34 Lymphocytes % (Manual) 6.0 % (8-40) L D 02/14/19 16:34 Monocytes % 5.3 % (3.8-10.2) 02/14/19 16:34 Monocytes % (Manual) 2 % (3.8-10.2) L 02/14/19 16:34 Eosinophils % 0.0 % (0-4.5) D 02/14/19 16:34 Eosinophils % (Manual) 0.0 % (0-4.5) 02/14/19 16:34 Basophils % 0.2 % (0-2.0) 02/14/19 16:34 Basophils % (Manual) 0.0 % (0-2.0) 02/14/19 16:34 Myelocytes % (Man) 0 % (0-2) 02/14/19 16:34 Promyelocytes % (Man) 0 % (0-2) 02/14/19 16:34 Blast Cells % (Manual) 0 % (0-0) 02/14/19 16:34 Nucleated RBC % 0 % (0-0) 02/14/19 16:34 Metamyelocytes 0 % (0-2) 02/14/19 16:34 Platelet Estimate Normal 02/14/19 16:34 PT with INR 21.20 SEC (9.7-13.0) H 02/14/19 16:34 INR 1.79 (0.83-1.09) H 02/14/19 16:34 PTT (Actin FS) 36.4 SECONDS (25.2-36.5) 02/14/19 16:34 VBG pH 7.41 (7.31-7.41) 02/14/19 16:34 POC VBG pCO2 43.8 mmHg (38-52) 02/14/19 16:34 POC VBG pO2 < 49 mmHg (28-48) H 02/14/19 16:34 VBG HCO3 27.3 mmol/L (23-29) 02/14/19 16:34 VBG O2 Sat (Breana) 59.5 % (70-80) L 02/14/19 16:34 VBG Base Excess 2.8 meq/l (-2-2) H 02/14/19 16:34 Sodium 140 mmol/L (136-145) 02/14/19 16:34 Potassium 4.2 mmol/L (3.5-5.1) 02/14/19 16:34 Chloride 102 mmol/L (98-107) 02/14/19 16:34 Carbon Dioxide 26 mmol/L (21-32) 02/14/19 16:34 Anion Gap 12 MMOL/L (8-16) 02/14/19 16:34 BUN 17.8 mg/dL (7-18) 02/14/19 16:34 Creatinine 1.2 mg/dL (0.55-1.3) 02/14/19 16:34 Est GFR (CKD-EPI)AfAm 51.20 02/14/19 16:34 Est GFR (CKD-EPI)NonAf 44.17 02/14/19 16:34 Random Glucose 107 mg/dL (74-106) H 02/14/19 16:34 Lactic Acid 2.2 mmol/L (0.4-2.0) H* 02/14/19 16:14 Calcium 9.3 mg/dL (8.5-10.1) 02/14/19 16:34 Total Bilirubin 1.0 mg/dL (0.2-1) 02/14/19 16:34 AST 26 U/L (15-37) 02/14/19 16:34 ALT 32 U/L (13-61) 02/14/19 16:34 Alkaline Phosphatase 80 U/L (45-117) 02/14/19 16:34 Creatine Kinase 128 U/L (26-192) 02/14/19 16:34 Troponin I < 0.02 ng/ml (0.00-0.05) 02/14/19 16:34 B-Natriuretic Peptide 4449.3 pg/ml (5-450) H 02/14/19 16:34 Total Protein 8.4 g/dl (6.4-8.2) H 02/14/19 16:34 Albumin 3.4 g/dl (3.4-5.0) 02/14/19 16:34 TSH 2.59 uIU/ml (0.358-3.74) 02/14/19 16:34 Urine Color Yellow 02/14/19 17:14 Urine Appearance Clear 02/14/19 17:14 Urine pH 7.0 (5.0-8.0) D 02/14/19 17:14 Ur Specific [place] 1.008 (1.010-1.035) L 02/14/19 17:14 Urine Protein 1+ (NEGATIVE) H 02/14/19 17:14 Urine Glucose (UA) Negative (NEGATIVE) 02/14/19 17:14 Urine Ketones Negative (NEGATIVE) 02/14/19 17:14 Urine Blood Trace (NEGATIVE) 02/14/19 17:14 Urine Nitrite Negative (NEGATIVE) 02/14/19 17:14 Urine Bilirubin Negative (NEGATIVE) 02/14/19 17:14 Urine Urobilinogen 0.2 mg/dL (0.2-1.0) 02/14/19 17:14 Ur Leukocyte Esterase 1+ (NEGATIVE) H 02/14/19 17:14 Urine WBC (Auto) 41 /hpf (0-5) 02/14/19 17:14 Urine RBC (Auto) 1 /hpf (0-4) 02/14/19 17:14 Urine Casts (Auto) 3 /lpf (0-8) 02/14/19 17:14 U Epithel Cells (Auto) 4.1 /HPF (0-5/HPF) 02/14/19 17:14 Urine Bacteria (Auto) 681.2 /hpf (NEGATIVE) 02/14/19 17:14 Influenza A (Rapid) Negative (Negative) 02/14/19 16:52 Influenza B (Rapid) Negative (Negative) 02/14/19 16:52 Blood Type O POSITIVE 02/14/19 16:34 Antibody Screen Negative 02/14/19 16:34 Vital Signs Pulse Rate 135 H 02/14/19 18:36 Respiratory Rate 32 H 02/14/19 18:36 Blood Pressure 130/59 L 02/14/19 18:36 Pt taken off Nitro Drip, is stable for Tele. 02/14/19 19:04 Pt signed out to Dr. Lacey, pending signout with admitting team, dispo. Discharge - Discharge Information Problems reviewed: Yes Clinical Impression/Diagnosis: Fluid overload, Sepsis, Rapid atrial fibrillation, Respiratory distress, UTI ( urinary tract infection), Basal ganglia infarction, Altered mental status Condition: Guarded - Admission Yes - Follow up/Referral - Patient Discharge Instructions - Post Discharge Activity
[2019-02-14] MEDS ORDERED: VANCOMYCIN 1,000 MG in DEXTROSE 5%-WATER - 250 ML IVPB ONE (16:03)
[2019-02-14] MEDS ORDERED: PIPERACILLIN/TAZOB 4.5 GM 4.5 GM in DEXTROSE 5%-WATER - 100 ML IVPB ONE (16:03)
--- NOTE | 2019-02-14 16:24 | PDOC ---
Documentation entered by Frieda Urban SCRIBE, acting as scribe for Autumn Padilla MD. Autumn Padilla MD: This documentation has been prepared by the Rajni yang Adrianna, SCRIBE, under my direction and personally reviewed by me in its entirety. I confirm that the documentation accurately reflects all work, treatment, procedures, and medical decision making performed by me. Attending Attestation - Resident Resident Name: Radha Marlow
[2019-02-14] MEDS ORDERED: VANCOMYCIN 1 GRAM (PRE-DOCKED) 1,000 MG/250 ML BAG IVPB ONE (16:44)
[2019-02-14] MEDS ORDERED: PIPERACILLIN/TAZOB 4.5 GM 4.5 GM/100 ML BAG IVPB ONE (16:44)
[2019-02-14 16:49] LABS: BASO % 0.2 % (0-2.0); HEMATOCRIT 40.9 % (32.4-45.2); LYMPH % 5.2 % (8-40); MCH 29.4 pg (25.7-33.7); MCHC 31.8 g/dl (32.0-36.0); MEAN CELL VOLUME 92.5 fl (80-96); MEAN PLT VOLUME 9.9 fl (7.5-11.1); MONO % 5.3 % (3.8-10.2); NEUT % 89.3 % (42.8-82.8); PLATELET COUNT 226 K/MM3 (134-434); RBC 4.42 M/mm3 (3.60-5.2); VENOUS PC02 43.8 mmHg (38-52); VENOUS PH 7.41 (7.31-7.41); WHITE BLOOD COUNT 21.4 K/mm3 (4.0-10.0)
[2019-02-14] MEDS ORDERED: FUROSEMIDE 40 MG/4 ML INJECTABLE VIAL ONE (16:49)
[2019-02-14 16:50] LABS: VENOUS PO2 < 49 mmHg (28-48)
[2019-02-14] MEDS ORDERED: ACETAMINOPHEN 1000 MG/100 ML VIAL (NON FORMULARY) IVPB ONE ×2 (16:50→22:46)
[2019-02-14] MEDS ORDERED: FUROSEMIDE 40 MG/4 ML INJECTABLE VIAL IVPUSH ONE (16:50)
[2019-02-14] MEDS ORDERED: NITROGLYCERIN 25MG/D5W 250ML 25 MG/250 ML ML IVPB ONE (16:59)
[2019-02-14] MEDS: NITROGLYCERIN 25MG/D5W 250ML 25 MG/250 ML ML IVPB SCH (17:00)
[2019-02-14] MEDS ORDERED: ACETAMINOPHEN INJECTION 100 ML IVPB ONE ×2 (17:01→22:52)
[2019-02-14 17:25] LABS: INR 1.79 (0.83-1.09); PROTHROMBIN TIME (PATIENT) 21.2 SEC (9.7-13.0)
[2019-02-14 17:28] LABS: ACTIVATED PTT 36.4 SECONDS (25.2-36.5)
[2019-02-14 17:38] LABS: ALBUMIN 3.4 g/dl (3.4-5.0); ALK PHOS 80 U/L (45-117); ANION GAP 12 MMOL/L (8-16); BLOOD UREA NITROGEN 17.8 mg/dL (7-18); CALCIUM 9.3 mg/dL (8.5-10.1); CHLORIDE 102 mmol/L (98-107); CO2 26 mmol/L (21-32); CREATININE 1.2 mg/dL (0.55-1.3); GLUCOSE,RANDOM 107 mg/dL (74-106); N-TERMINAL BNP 4449.3 pg/ml (5-450); POTASSIUM 4.2 mmol/L (3.5-5.1); SGOT/AST 26 U/L (15-37); SGPT/ALT 32 U/L (13-61); SODIUM 140 mmol/L (136-145); TOT PROT 8.4 g/dl (6.4-8.2)
[2019-02-14 17:48] LABS: PLATELET ESTIMATE NORMAL
--- NOTE | 2019-02-14 17:53 | PDOC ---
Attending Attestation - Resident Resident Name: Radha Marlow - ED Attending Attestation I have performed the following: I have examined & evaluated the patient, The case was reviewed & discussed with the resident, I agree w/resident's findings & plan, Exceptions are as noted - HPI HPI: 02/14/19 17:50 73-year-old female with past medical history of CHF on 40 mg of Lasix BID, atrial fibrillation on Xarelto, CAD, bilateral chronic venous stasis, hypothyroidism, diabetes, urinary incontinencePresents the emergency department after being found down by her daughter. Patient's daughter reports that she left home at 10:30 AM this morning, only to return to find her mother on the ground at 2:30 PM. Patient was awake but lethargic. The patient's daughter reports that she often skips her medications, most frequently Lasix as she does not want to go to the bathroom. In addition, the patient's daughter also reports frequent dietary indiscretion and that patient eats [employer] frequently. Patient is a poor historian and does not know how she ended up on the ground. - Physicial Exam PE: 02/14/19 18:02 Agree with resident exam - Critical Care Time Total Critical Care Time: 60 Critical Care Statement: The care of this patient involved high complexity decision making to prevent further life threatening deterioration of the patient 's condition and/or to evaluate & treat vital organ system(s) failure or risk of failure. - Medical Decision Making 02/14/19 18:02 73-year-old female with multiple medical problems including congestive heart failure presents to the emergency room after she was found down at home. Unclear syncopal episode, LOC, head strike. Pt poorly compliant with home meds, takes lasix daily rather than BID. Family also reporting dietary indiscretion. Patient is febrile to 104 on arrival, tachycardic to the 170s in A. fib with RVR , tachypneic, and hypertensive to 210/133. She has b/l diffuse rales, all consistent with acute pulmonary edema. CXR confirms congestive changes. As such , the patient was placed on BiPAP, a nitro drip was initiated at 50mcg/min, and she was given Lasix 40 mg IV. In addition, given her elevated temperature, she was covered empirically with vancomycin and Zosyn. Possible sources are UTI as pt has recurrent UTI's vs cellulitis on LE. We will hold off on fluids given her current clinical fluid overload state. With regards to trauma, head to toe exam reveals a right forehead superficial laceration, and midline thoracic spinal tenderness to palpation. Will obtain a CT head, CT cervical spine, CT thoracic spine for further trauma evaluation. DEnies hip/LE pain since fall - pt has stable pelvis with FROM at hips b/l. Anticipate admission to ICU versus telemetry. 02/14/19 19:03 Per radiology, L basal ganglia lacunar infarct, unclear subacute or chronic It's possible that pt had a stroke causing her fall, however pt denies new neuro deficits today HR down to 110s, BP 140/90 likely in response to afterload reduction with nitro and bipap. REmains febrile. Nitro gtt titrated off, will continue bipap for resp support. Anticipate admission to tele vs ICU
[2019-02-14 18:04] LABS: EPI CELLS 4.1 /HPF (0-5/HPF); HYALINE CASTS 3 /lpf (0-8); URINE APPEARANCE CLEAR; URINE BACTERIA 681.2 /hpf (NEGATIVE); URINE BILIRUBIN NEGATIVE (NEGATIVE); URINE COLOR YELLOW; URINE GLUCOSE (UA) NEGATIVE (NEGATIVE); URINE KETONE NEGATIVE (NEGATIVE); URINE LEUK ESTERASE 1+ (NEGATIVE); URINE NITRITE NEGATIVE (NEGATIVE); URINE PROTEIN 1+ (NEGATIVE); URINE RBC 1 /hpf (0-4); URINE UROBILINOGEN 0.2 mg/dL (0.2-1.0); URINE WBC 41 /hpf (0-5)
[2019-02-14] MEDS ORDERED: ASPIRIN 81 MG CHEWABLE TABLETS PO ONE (18:47)
--- NOTE | 2019-02-14 19:14 | PDOC ---
*Physical Exam - Vital Signs Last Vital Signs Temp Pulse Resp BP Pulse Ox 103.8 F H 126 H 29 H 119/80 98 02/14/19 19:01 02/14/19 19:01 02/14/19 19:01 02/14/19 19:01 02/14/19 18:15 ED Treatment Course - LABORATORY CBC & Chemistry Diagram: 02/14/19 16:34 02/14/19 16:34 - ADDITIONAL ORDERS Additional order review: Laboratory Results 02/14/19 02/14/19 02/14/19 17:14 16:34 16:34 PT with INR INR PTT (Actin FS) VBG pH 7.41 POC VBG pCO2 43.8 POC VBG pO2 < 49 H VBG HCO3 27.3 VBG O2 Sat (Breana) 59.5 L VBG Base Excess 2.8 H Sodium Potassium Chloride Carbon Dioxide Anion Gap BUN Creatinine Est GFR (CKD-EPI)AfAm Est GFR (CKD-EPI)NonAf Random Glucose Lactic Acid Calcium Total Bilirubin AST ALT Alkaline Phosphatase Creatine Kinase Troponin I B-Natriuretic Peptide Total Protein Albumin TSH Urine Color Yellow Urine Appearance Clear Urine pH 7.0 D Ur Specific [place] 1.008 L Urine Protein 1+ H Urine Glucose (UA) Negative Urine Ketones Negative Urine Blood Trace Urine Nitrite Negative Urine Bilirubin Negative Urine Urobilinogen 0.2 Ur Leukocyte Esterase 1+ H Urine WBC (Auto) 41 Urine RBC (Auto) 1 Urine Casts (Auto) 3 U Epithel Cells (Auto) 4.1 Urine Bacteria (Auto) 681.2 Blood Type O POSITIVE Antibody Screen Negative 02/14/19 02/14/19 02/14/19 16:34 16:34 16:34 PT with INR 21.20 H INR 1.79 H PTT (Actin FS) 36.4 VBG pH POC VBG pCO2 POC VBG pO2 VBG HCO3 VBG O2 Sat (Breana) VBG Base Excess Sodium 140 Potassium 4.2 Chloride 102 Carbon Dioxide 26 Anion Gap 12 BUN 17.8 Creatinine 1.2 Est GFR (CKD-EPI)AfAm 51.20 Est GFR (CKD-EPI)NonAf 44.17 Random Glucose 107 H Lactic Acid Calcium 9.3 Total Bilirubin 1.0 AST 26 ALT 32 Alkaline Phosphatase 80 Creatine Kinase 128 Troponin I < 0.02 B-Natriuretic Peptide 4449.3 H Total Protein 8.4 H Albumin 3.4 TSH 2.59 Urine Color Urine Appearance Urine pH Ur Specific [place] Urine Protein Urine Glucose (UA) Urine Ketones Urine Blood Urine Nitrite Urine Bilirubin Urine Urobilinogen Ur Leukocyte Esterase Urine WBC (Auto) Urine RBC (Auto) Urine Casts (Auto) U Epithel Cells (Auto) Urine Bacteria (Auto) Blood Type Antibody Screen 02/14/19 16:14 PT with INR INR PTT (Actin FS) VBG pH POC VBG pCO2 POC VBG pO2 VBG HCO3 VBG O2 Sat (Breana) VBG Base Excess Sodium Potassium Chloride Carbon Dioxide Anion Gap BUN Creatinine Est GFR (CKD-EPI)AfAm Est GFR (CKD-EPI)NonAf Random Glucose Lactic Acid 2.2 H* Calcium Total Bilirubin AST ALT Alkaline Phosphatase Creatine Kinase Troponin I B-Natriuretic Peptide Total Protein Albumin TSH Urine Color Urine Appearance Urine pH Ur Specific [place] Urine Protein Urine Glucose (UA) Urine Ketones Urine Blood Urine Nitrite Urine Bilirubin Urine Urobilinogen Ur Leukocyte Esterase Urine WBC (Auto) Urine RBC (Auto) Urine Casts (Auto) U Epithel Cells (Auto) Urine Bacteria (Auto) Blood Type Antibody Screen 02/14/19 16:34 RBC 4.42 MCV 92.5 MCHC 31.8 L RDW 17.0 H MPV 9.9 Neutrophils % 89.3 H D Lymphocytes % 5.2 L D Monocytes % 5.3 Eosinophils % 0.0 D Basophils % 0.2 - Medications Given in the ED: ED Medications Discontinued Medications Generic Name Dose Route Start Last Admin Trade Name Freq PRN Reason Stop Dose Admin Acetaminophen 1,000 mg 02/14/19 16:50 02/14/19 17:07 Ofirmev Injection - IVPB 02/14/19 16:51 1,000 mg ONCE ONE Administration Aspirin 324 mg 02/14/19 18:47 02/14/19 18:54 Asa - PO 02/14/19 18:48 Not Given ONCE ONE Furosemide 40 mg 02/14/19 16:50 02/14/19 17:00 Lasix Injection - IVPUSH 02/14/19 16:51 40 mg ONCE ONE Administration Vancomycin HCl 1,000 mg/ 250 mls @ 250 mls/hr 02/14/19 16:03 02/14/19 17:31 Dextrose IVPB 02/14/19 17:02 250 mls/hr ONCE ONE Administration Protocol Piperacillin Sod/Tazobactam 100 mls @ 200 mls/hr 02/14/19 16:03 02/14/19 17: 00 Sod 4.5 gm/ Dextrose IVPB 02/14/19 16:32 200 mls/hr ONCE ONE Administration Protocol Medical Decision Making - Medical Decision Making 02/14/19 19:12 Sign out received from Dr Marlow. Radha Zheng is a 73yo woman with a PMH of CHF, a-fib on Eliquis, CAD s/p cath (no stent), b/l venous stasis, hypothyroidism, DM, incontinence who presented after being found down by her daughter at 2:30, last seen at 10:30am at baseline. ED course so far notable for: - Febrile to 104.4F on arrival, a-fib w/ RVR, RR 33, HTN to 183/133 - EKG w/o acute changes - BiPAP and nitro drip for increased respiratory effort, tachypnea, b-lines on POCUS of lungs, pulmonary vascular congestion on xray, BNP 4500 - Leukocytosis to 21, lactate 2.2, UA positive - Vanc/zosyn given for sepsis - Acute basal ganglia lacunar infarct on CT head. Dr Blevins consulted, recommending MRI, carotid US, echo, ASA, lipids - CT cervical and thoracic spine completed, read pending - Microblog for admission sent by Dr Marlow, waiting to sign out 02/14/19 19:58 - Continued fever at 103F. Too early to give additional acetaminophen - 15mg IV toradol ordered for fever - Follow up microblog sent Discussed with Dr Raúl Lacey PGY2 Discharge - Discharge Information Problems reviewed: Yes Clinical Impression/Diagnosis: Rapid atrial fibrillation, Respiratory distress, Basal ganglia infarction Fluid overload Qualifiers: Hypervolemia type: other Qualified Code(s): E87.79 - Other fluid overload Sepsis Qualifiers: Sepsis type: sepsis due to unspecified organism Sepsis acute organ dysfunction status: with acute organ dysfunction Severe sepsis acute organ dysfunction type : acute respiratory failure Acute respiratory failure type: unspecified Severe sepsis shock status: without septic shock Qualified Code(s): A41.9 - Sepsis, unspecified organism; R65.20 - Severe sepsis without septic shock; J96.00 - Acute respiratory failure, unspecified whether with hypoxia or hypercapnia UTI (urinary tract infection) Qualifiers: Urinary tract infection type: site unspecified Hematuria presence: without hematuria Qualified Code(s): N39.0 - Urinary tract infection, site not specified Altered mental status Qualifiers: Altered mental status type: disorientation Qualified Code(s): R41.0 - Disorientation, unspecified Condition: Guarded - Follow up/Referral - Patient Discharge Instructions - Post Discharge Activity
[2019-02-14 19:17] LABS: CHOLESTEROL 186 mg/dL (50-200); HDL CHOLESTEROL 82 mg/dL (40-60); LDL CHOLESTEROL (ONLY SJRH) 97 mg/dL (5-100); TRIGLYCERIDES 61 mg/dL (0-150)
[2019-02-14] MEDS ORDERED: KETOROLAC TROMETHAMINE 15 MG/ML VIAL IVPUSH ONE (19:58)
[2019-02-14] MEDS ORDERED: KETOROLAC TROMETHAMINE 15 MG/ML VIAL ONE (19:59)
[2019-02-14] MEDS ORDERED: ALBUTEROL SO4 8 GM HFA INHALER IH PRN (22:28)
[2019-02-14] MEDS ORDERED: CEFEPIME 1 GM in DEXTROSE 5%-WATER 100 ML IVPB ONE (22:32)
[2019-02-14] MEDS ORDERED: CEFEPIME 1 GM/100 ML BAG IVPB ONE (22:52)
--- NOTE | 2019-02-14 23:15 | HP ---
Admitting History and Physical - Admission Chief Complaint: AMS x1 day History of Present Illness: Pt is a 73 yo F with PMHx of CHF (lasix 40 bid), Afib on xarelto, CAD with cardiac cath (no stents), b/l chronic venous stasis, hypothyroidism, DM, urinary incontinence, BIBA for altered mental status, after she was found on the floor by the daughter. Per daughter, patient's last known well was around 10 :30am, when she was using her nebulizer treatment. Around 2:30 PM when the daughter returned, she found the pt on the floor covered in urine and feces and naked from waist down. Pt was reported to be confused and oriented to only self. Pt was also noted to have a temp of 103, tachycardia and elevated BP to 180s (daughter is a PT). Initially on arrival in ED, pt was febrile to 104, still confused with BP up to 180s/120, with tachypnea to 130s and tachycardia. Pt was placed on Bipap and a nitrodrip was started. CT head and spine was done pt noted to have subacute basal ganglia lacunar infarcts and ED but was noted to be out of TPA window. When I saw the pt, she was on bipap, awake and oriented x3, not confused. She described falling on her urine and hitting her forehead against a hard surface, then passing out for an unknown period of time. She denies seizures, or chest pain before or during the fall. She also denied fever and diarrhea. She acknowledges urinary incontinence and suprapubic pain. Pt was recently discharged 02/05/19 after being treated for Klebsiella UTI with zosyn and acute CHF exacerbation. Per daughter, pt deteriorates rapidly. Per pt's daughter, pt is non compliant at baseline intermittently takes the lasix prescribed (40bid, 40mg daily in chart), does not check BP, do daily weights or comply with salt restricted diet. Per pulm last visit, did not think she had COPD, rather possible PATRICIA. Pt yet to get the sleep study done. ED course: Vanc/zosyn LA-2.2 VBG-7.41/43.8/<49/27.3 WBC-21.4, BUN/cr-17.8/1.2 EKG-Afib with RVR-159, few PVCs, Q waves, Nl axis, QTC-474 CT head- subtle hypodensity in L basal ganglia which could represent a subacute lacunar infarct in the basal ganglia History Source: Patient, Family Member, Medical Record Limitations to Obtaining History: No Limitations - Past Medical History Cardiovascular: Yes: AFIB, CHF, HTN Pulmonary: Yes: Other (possible Sleep Apnea ). No: Asthma, COPD, O2 Dependent, Pneumonia, Previously Intubated, Pulmonary Embolus, Pulmonary Fibrosis Psych: Yes: Other Endocrine: Yes: Hypothyroidism - Past Surgical History Past Surgical History: Yes: (About 26 years ago), Hysterectomy - Smoking History Smoking history: Former smoker (Smoked from 14 years to 33 years) Have you smoked in the past 12 months: No If you are a former smoker, when did you quit?: 40 yrs ago - Alcohol/Substance Use Hx Alcohol Use: No History of Substance Use: reports: None - Social History Usual Living Arrangement: Yes: With Child ADL: Independent Home Medications - Allergies Allergies/Adverse Reactions: Allergies Allergy/AdvReac Type Severity Reaction Status Date / Time shrimp Allergy Hives Verified 01/31/19 19:06 - Home Medications Home Medications: Ambulatory Orders Levothyroxine Sodium [Synthroid] 125 mcg PO DAILY 04/10/17 Rivaroxaban [Xarelto -] 20 mg PO HS 04/10/17 Albuterol Sulfate Inhaler - [Ventolin HFA Inhaler -] 1 - 2 inh PO Q6H PRN #1 inhaler 11/28/18 Metoprolol Succinate [Toprol XL -] 100 mg PO DAILY #30 tab.sr.24h 11/28/18 Spironolactone [Aldactone] 25 mg PO MOWEFR #20 tablet 11/28/18 Ferrous Sulfate [Feosol] 325 mg PO BID #60 ud 12/31/18 Ipratropium 0.02% Nebulizer [Atrovent 0.02% Nebulizer -] 1 neb NEB QID 01/31/19 Ipratropium Jakin [Atrovent Hfa] 2.5 gm IH QID PRN 01/31/19 Furosemide [Lasix -] 40 mg PO DAILY #30 tablet 02/05/19 Lactobacillus Acidophilus [Bacid -] 1 tab PO DAILY #30 tab 02/05/19 Lisinopril [Prinivil] 2.5 mg PO DAILY #30 tablet 02/05/19 Review of Systems - Review of Systems Respiratory: reports: SOB, Wheezing Genitourinary: reports: Frequency, Incontinence Physical Examination Vital Signs: Vital Signs Temperature 103.8 F H 02/14/19 19:01 Pulse Rate 139 H 02/14/19 20:04 Respiratory Rate 33 H 02/14/19 20:04 Blood Pressure 165/87 02/14/19 20:04 O2 Sat by Pulse Oximetry (%) 98 02/14/19 21:49 Constitutional: Yes: Moderate Distress, Obese HENT: Yes: Other (bipap). No: Atraumatic (Forehead with laceration/bruise about 5cm, freash, not actively bleeding with swelling) Cardiovascular: Yes: Tachycardia, S1, S2. No: Murmur Respiratory: Yes: Wheezes Gastrointestinal: Yes: Tenderness (suprAPUBIC) Renal/: Yes: Incontinence Musculoskeletal: Yes: Joint Swelling (b/L KNEE SWELLING) Edema: LLE: 1+, RLE: 1+ Integumentary: Yes: Venous Stasis Changes Neurological: Yes: Alert, Oriented. No: Aphasia, Pre-Existing Deficit ...Motor Strength: WNL Psychiatric: Yes: Alert, Oriented Labs: CBC, BMP 02/14/19 16:34 02/14/19 16:34 Imaging - Results Chest X-ray: Report Reviewed, Image Reviewed Cat Scan: Report Reviewed Assessment/Plan Current Medications Acetaminophen (Ofirmev Injection -) 1,000 mg IVPB Q6H PRN PRN Reason: FEVER Albuterol Sulfate (Ventolin Hfa Inhaler -) 2 puff IH Q6H PRN PRN Reason: SHORT OF BREATH/WHEEZING Aspirin (Ecotrin -) 81 mg PO DAILY ALYSSA Atorvastatin Calcium (Lipitor -) 40 mg PO HS ALYSSA Ferrous Sulfate (Feosol -) 325 mg PO BID ALYSSA Furosemide (Lasix -) 40 mg PO DAILY ALYSSA Nitroglycerin/Dextrose (Nitroglycerin 25mg/D5w 250ml) 25 mg in 250 mls @ 6 mls/ hr IVPB TITR ALYSSA Last Titration: 02/14/19 18:43 Dose: 0 mcg/min, 0 mls/hr Piperacillin Sod/Tazobactam (Sod 3.375 gm/ Dextrose) 50 mls @ 100 mls/hr IVPB Q8H-IV ALYSSA; Protocol Piperacillin Sod/Tazobactam (Sod 3.375 gm/ Dextrose) 50 mls @ 100 mls/hr IVPB Q8H-IV ALYSSA Stop: 02/15/19 18:29 Last Admin: 02/15/19 01:54 Dose: 100 mls/hr Insulin Aspart (Novolog Vial Sliding Scale -) 1 vial SQ ACHS [facility]; Protocol Last Admin: 02/15/19 06:11 Dose: Not Given Ipratropium Jakin (Atrovent 0.02% Nebulizer -) 1 amp NEB RQID ALYSSA Lactobacillus Acidophilus (Bacid -) 1 tab PO DAILY [facility] Levothyroxine Sodium (Synthroid -) 125 mcg PO DAILY@0700 [facility] Lisinopril (Prinivil) 2.5 mg PO DAILY [facility] Metoprolol Succinate (Toprol Xl -) 100 mg PO DAILY [facility] Last Admin: 02/14/19 23:03 Dose: 100 mg Rivaroxaban (Xarelto) 20 mg PO HS [facility] Last Admin: 02/15/19 02:23 Dose: 20 mg Spironolactone (Aldactone -) 25 mg PO MoWeFr@1000 [facility] Ambulatory Orders Levothyroxine Sodium [Synthroid] 125 mcg PO DAILY 04/10/17 Rivaroxaban [Xarelto -] 20 mg PO HS 04/10/17 Albuterol Sulfate Inhaler - [Ventolin HFA Inhaler -] 1 - 2 inh PO Q6H PRN #1 inhaler 11/28/18 Metoprolol Succinate [Toprol XL -] 100 mg PO DAILY #30 tab.sr.24h 11/28/18 Spironolactone [Aldactone] 25 mg PO MOWEFR #20 tablet 11/28/18 Ferrous Sulfate [Feosol] 325 mg PO BID #60 ud 12/31/18 Ipratropium 0.02% Nebulizer [Atrovent 0.02% Nebulizer -] 1 neb NEB QID 01/31/19 Ipratropium Jakin [Atrovent Hfa] 2.5 gm IH QID PRN 01/31/19 Furosemide [Lasix -] 40 mg PO DAILY #30 tablet 02/05/19 Lactobacillus Acidophilus [Bacid -] 1 tab PO DAILY #30 tab 02/05/19 Lisinopril [Prinivil] 2.5 mg PO DAILY #30 tablet 02/05/19 Assessment/Plan Pt is a 73 yo F with PMHx of CHF (lasix 40 bid), Afib , CAD with cardiac cath ( no stents), b/l chronic venous stasis, hypothyroidism, DM, urinary incontinence , BIBA for altered mental status, after she was found on the floor by the daughter. AMS Severe sepsis secondary to UTI Acute respiratory failure Stroke R/O PATRICIA R/o COPD Afib w/RVR Hypertensive urgency CAD with cardiac cath (no stents), b/l chronic venous stasis, hypothyroidism, DM, urinary incontinence Sepsis work up, cultures pending, trend lactic acid Subacute basal ganglia stroke R/O acute stroke Brain MRI Carotid duplex Recent ECHO, could hold off for now ASA 324 given, 81 daily (pt on xarelto), Cont home meds Bedside swallow eval Neurochecks Cont Bedrest Seizure precautions Fall precautions ISS BGM Cefepime 1 gm stat Cont vanco Pending cx results Bobde consult Cont home meds ISS BGM Nebs PRN Bipap, could attempt NC (if pt tolerates) and do ABG if desating No standing fluids Tele Xarelto for DVT PPx Visit type - Emergency Visit Emergency Visit: Yes ED Registration Date: 02/14/19 Care time: The patient presented to the Emergency Department on the above date and was hospitalized for further evaluation of their emergent condition. - New Patient This patient is new to me today: Yes Date on this admission: 02/15/19 - Critical Care Critical Care patient: No ATTENDING PHYSICIAN STATEMENT I saw and evaluated the patient. I reviewed the resident's note and discussed the case with the resident. I agree with the resident's findings and plan as documented. SUBJECTIVE: OBJECTIVE: ASSESSMENT AND PLAN:
--- NOTE | 2019-02-14 23:26 | PN ---
Teaching Attending Note Name of Resident: Ema Harper ATTENDING PHYSICIAN STATEMENT I saw and evaluated the patient. I reviewed the resident's note and discussed the case with the resident. I agree with the resident's findings and plan as documented. SUBJECTIVE: 73-year-old female with past medical history of CHF, atrial fibrillation on eliquis, CKD, CAD s/p cardiac cath (no stents), bilateral chronic venous stasis , hypothyroidism, diabetes mellitus, urinary incontinence brought in by ambulance emergency department after being found down on the ground by her daughter. After being found down by daughter at around 2:30 PM on 02/14/2019. As per daughter patient was seen at 10:30 AM that same morning and was in her usual state of health. Patient did not really remember what happened to her at that time. Of note patient had a recent admission to hospital and was discharged on 02/05/2019 after she was being treated for urinary tract infection. OBJECTIVE: Last Vital Signs Temp Pulse Resp BP Pulse Ox 103.8 F H 139 H 33 H 165/87 98 02/14/19 19:01 02/14/19 20:04 02/14/19 20:04 02/14/19 20:04 02/14/19 21:49 GENERAL: Well developed, well nourished. Awake and alert. No acute distress. HEENT: Normocephalic,Tiny laceration to forehead. PERRLA, EOMI. No conjunctival pallor. Sclera are non-icteric. Moist mucous membranes. Oropharynx is clear. NECK: Supple. Full ROM. No JVD. Carotid pulses 2+ and symmetric, without bruits. No thyromegaly. No lymphadenopathy. CARDIOVASCULAR: Regular rate and rhythm. No murmurs, rubs, or gallops. Distal pulses are 2+ and symmetric. PULMONARY: No evidence of respiratory distress. Lungs clear to auscultation bilaterally. No wheezing, rales or rhonchi. ABDOMINAL: Soft. Non-tender. Non-distended. No rebound or guarding. No organomegaly. Normoactive bowel sounds. MUSCULOSKELETAL Normal range of motion at all joints. No bony deformities or tenderness. No CVA tenderness. EXTREMITIES: No cyanosis. No clubbing. No edema. No calf tenderness. SKIN: Warm and dry. Normal capillary refill. No rashes. No jaundice. NEUROLOGICAL: Alert, awake, appropriate. Cranial nerves 2-12 intact. No deficits to light touch and temperature in face, upper extremities and lower extremities. No motor deficits in the in face, upper extremities and lower extremities. Normoreflexic in the upper and lower extremities. Normal speech. Toes are down- going bilaterally. Gait is normal without ataxia. PSYCHIATRIC: Cooperative. Good eye contact. Appropriate mood and affect. Abnormal Lab Results 02/14/19 02/14/19 02/14/19 16:14 16:34 16:34 WBC 21.4 H MCHC 31.8 L RDW 17.0 H Absolute Neuts (auto) 19.1 H Neutrophils % 89.3 H D Neutrophils % (Manual) 90.0 H Lymphocytes % 5.2 L D Lymphocytes % (Manual) 6.0 L D Monocytes % (Manual) 2 L PT with INR 21.20 H INR 1.79 H POC VBG pO2 VBG O2 Sat (Breana) VBG Base Excess Random Glucose Lactic Acid 2.2 H* B-Natriuretic Peptide Total Protein HDL Cholesterol Ur Specific [place] Urine Protein Ur Leukocyte Esterase 02/14/19 02/14/19 02/14/19 16:34 16:34 16:34 WBC MCHC RDW Absolute Neuts (auto) Neutrophils % Neutrophils % (Manual) Lymphocytes % Lymphocytes % (Manual) Monocytes % (Manual) PT with INR INR POC VBG pO2 < 49 H VBG O2 Sat (Breana) 59.5 L VBG Base Excess 2.8 H Random Glucose 107 H Lactic Acid B-Natriuretic Peptide 4449.3 H Total Protein 8.4 H HDL Cholesterol 82 H Ur Specific [place] Urine Protein Ur Leukocyte Esterase 02/14/19 17:14 WBC MCHC RDW Absolute Neuts (auto) Neutrophils % Neutrophils % (Manual) Lymphocytes % Lymphocytes % (Manual) Monocytes % (Manual) PT with INR INR POC VBG pO2 VBG O2 Sat (Breana) VBG Base Excess Random Glucose Lactic Acid B-Natriuretic Peptide Total Protein HDL Cholesterol Ur Specific [place] 1.008 L Urine Protein 1+ H Ur Leukocyte Esterase 1+ H Imaging reviewed Head CT reviewed with [facility] report. There was subtle hypodensity in the left basal ganglia which could represent subacute lacunar infarct in the basal ganglia. Brain showed a moderate volume loss, no acute intracranial abnormality , likely age-related microangiopathic disease. Thoracic spine CT, cervical spine CT were negative for any fractures. EKG was reviewed and showed atrial fibrillation with rapid ventricular response ASSESSMENT AND PLAN: 73-year-old woman with severe sepsis, high fever, tachycardia severe leukocytosis, with altered mental status that may metabolic encephalopathy be likely secondary to her underlying infection. Source of infection at this time is uncertain but may be from urinary tract she was noted to have pyuria and leukocyte esterase positive on her UA. Prior urine culture showed E. coli and Klebsiella which were quite sensitive. She received empiric antibiotic coverage with vancomycin and Zosyn in the emergency room. Head CT report showed subtle hypodensity in left basal ganglia which could be a subacute lacunar infarct. Would pursue brain MRI to rule out any undiagnosed infarction at this time. Admit to telemetry Empiric cefepime and vancomycin adjusted for renal clearance Follow-up blood cultures and urine culture Trend lactate Monitor vital signs closely IV fluid hydration Infectious disease consultation #Atrial fibrillation with rapid ventricular response Continue home dose Metoprolol xl and Xarelto for anticoagulation Monitor heart rate closely #CHF Continue beta-saba and lisinopril #Hypothyroidism TSH Home dose levothyroxine #CAD Statin Baby aspirin Xarelto also for DVT prophylaxis
[2019-02-15] MEDS ORDERED: PIPERACILLIN/TAZOB 3.375 GM 3.375 GM/50 ML BAG IVPB ONE (01:45)
[2019-02-15] MEDS: PIPERACILLIN/TAZOB 3.375 GM 3.375 GM in DEXTROSE 5%-WATER - 50 ML IVPB SCH ×3 (01:54→17:14)
[2019-02-15] MEDS ORDERED: PIPERACILLIN/TAZOB 3.375 GM 3.375 GM in DEXTROSE 5%-WATER - 50 ML IVPB SCH ×2 (02:00→10:00)
[2019-02-15] MEDS: RIVAROXABAN 20 MG TABLET PO SCH ×2 (02:23→22:27)
[2019-02-15] MEDS ORDERED: BACITRACIN 0.9 GM PACKET ONE (02:55)
[2019-02-15] MEDS ORDERED: ACETAMINOPHEN 1000 MG/100 ML VIAL (NON FORMULARY) IVPB PRN (05:58)
[2019-02-15] MEDS: INSULIN SLIDING SCALE (NOVOLOG) 1 VIAL SQ SCH ×4 (06:11→22:27)
[2019-02-15 06:32] LABS: BASO % 0.3 % (0-2.0); HEMATOCRIT 37.2 % (32.4-45.2); LYMPH % 4.1 % (8-40); MCH 29.4 pg (25.7-33.7); MCHC 32.2 g/dl (32.0-36.0); MEAN CELL VOLUME 91.2 fl (80-96); MEAN PLT VOLUME 9.9 fl (7.5-11.1); MONO % 3.7 % (3.8-10.2); NEUT % 91.9 % (42.8-82.8); PLATELET COUNT 157 K/MM3 (134-434); RBC 4.07 M/mm3 (3.60-5.2); RDW 16.9 % (11.6-15.6); WHITE BLOOD COUNT 22.2 K/mm3 (4.0-10.0)
[2019-02-15 07:09] LABS: ALBUMIN 2.9 g/dl (3.4-5.0); BILIRUBIN,TOTAL 1.2 mg/dL (0.2-1); CALCIUM 8.2 mg/dL (8.5-10.1); CREATININE 1.6 mg/dL (0.55-1.3); PHOSPHOROUS 3.7 mg/dL (2.5-4.9); POTASSIUM 3.8 mmol/L (3.5-5.1); TOT PROT 7.2 g/dl (6.4-8.2)
[2019-02-15] MEDS: IPRATROPIUM BR 0.02% 0.5 MG/2.5 ML VIAL.NEB. NEB SCH ×4 (08:30→20:15)
--- NOTE | 2019-02-15 08:51 | CON.ID ---
Consult Consult Specialty:: infectious diseases Referred by:: hospitalist Reason for Consultation:: ams - History of Present Illness Chief Complaint: ams History of Present Illness: patient does not know exactly what happened.daughter found her passed out on the floor 73 yo F with PMHx of CHF (lasix 40 bid), Afib on xarelto, CAD with cardiac cath (no stents), b/l chronic venous stasis, hypothyroidism, DM, urinary incontinence , BIBA for altered mental status, after she was found on the floor by the daughter. Per daughter, patient's last known well was around 10:30am, when she was using her nebulizer treatment. Around 2:30 PM when the daughter returned, she found the pt on the floor covered in urine and feces and naked from waist down. Pt was reported to be confused and oriented to only self. Pt was also noted to have a temp of 103, tachycardia and elevated BP to 180s (daughter is a PT). Initially on arrival in ED, pt was febrile to 104, still confused with BP up to 180s/120, with tachypnea to 130s and tachycardia. Pt was placed on Bipap and a nitrodrip was started. CT head and spine was done pt noted to have subacute basal ganglia lacunar infarcts and ED but was noted to be out of TPA window. When I saw the pt, she was on bipap, awake and oriented x3, not confused. She described falling on her urine and hitting her forehead against a hard surface, then passing out for an unknown period of time. She denies seizures, or chest pain before or during the fall. She also denied fever and diarrhea. She acknowledges urinary incontinence and suprapubic pain. - Past Medical History Cardio/Vascular: Yes: AFIB, CHF, HTN Pulmonary: Yes: Other (possible Sleep Apnea ). No: Asthma, COPD, O2 Dependent, Pneumonia, Previously Intubated, Pulmonary Embolus, Pulmonary Fibrosis Psych: Yes: Other Endocrine: Yes: Hypothyroidism - Past Surgical History Past Surgical History: Yes: (About 26 years ago), Hysterectomy - Alcohol/Substance Use Hx Alcohol Use: No History of Substance Use: reports: None - Smoking History Smoking history: Former smoker (Smoked from 14 years to 33 years) Have you smoked in the past 12 months: No If you are a former smoker, when did you quit?: 40 yrs ago - Social History ADL: Independent Home Medications - Allergies Allergies/Adverse Reactions: Allergies Allergy/AdvReac Type Severity Reaction Status Date / Time shrimp Allergy Hives Verified 01/31/19 19:06 - Home Medications Home Medications: Ambulatory Orders Levothyroxine Sodium [Synthroid] 125 mcg PO DAILY 04/10/17 Rivaroxaban [Xarelto -] 20 mg PO HS 04/10/17 Albuterol Sulfate Inhaler - [Ventolin HFA Inhaler -] 1 - 2 inh PO Q6H PRN #1 inhaler 11/28/18 Metoprolol Succinate [Toprol XL -] 100 mg PO DAILY #30 tab.sr.24h 11/28/18 Spironolactone [Aldactone] 25 mg PO MOWEFR #20 tablet 11/28/18 Ferrous Sulfate [Feosol] 325 mg PO BID #60 ud 12/31/18 Ipratropium 0.02% Nebulizer [Atrovent 0.02% Nebulizer -] 1 neb NEB QID 01/31/19 Ipratropium [place] [Atrovent Hfa] 2.5 gm IH QID PRN 01/31/19 Furosemide [Lasix -] 40 mg PO DAILY #30 tablet 02/05/19 Lactobacillus Acidophilus [Bacid -] 1 tab PO DAILY #30 tab 02/05/19 Lisinopril [Prinivil] 2.5 mg PO DAILY #30 tablet 02/05/19 Physical Exam Vital Signs: Vital Signs Temperature 102 F H 02/15/19 07:37 Pulse Rate 115 H 02/15/19 04:12 Respiratory Rate 16 02/15/19 07:37 Blood Pressure 143/77 02/15/19 04:12 O2 Sat by Pulse Oximetry (%) 98 02/15/19 04:35 Labs: CBC, BMP 02/15/19 06:07 02/15/19 06:07
[2019-02-15] MEDS ORDERED: PIPERACILLIN/TAZOBACTAM 3.375 GM VIAL IVPB ONE ×2 (09:17→17:03)
[2019-02-15] MEDS ORDERED: DEXTROSE 5%-WATER - 50 ML IVPB ONE ×2 (09:17→17:03)
[2019-02-15] MEDS: LACTOBACILLUS ACIDOPHILUS 1 TABLET PO SCH (09:20)
[2019-02-15] MEDS: FERROUS SO4 325 MG TABLET (FP) PO SCH ×2 (09:20→22:27)
[2019-02-15] MEDS: ASPIRIN COATED 81 MG TABLET.EC PO SCH (09:21)
[2019-02-15 09:25] LABS: PLATELET ESTIMATE ADEQUATE
[2019-02-15] MEDS: LEVOTHYROXINE NA 125 MCG TABLET (FP) PO SCH ×2 (09:28→09:46)
[2019-02-15] MEDS ORDERED: FUROSEMIDE 40 MG TABLET (FP) PO SCH (10:00)
[2019-02-15] MEDS ORDERED: LISINOPRIL 5 MG TABLET (FP) PO SCH (10:00)
--- NOTE | 2019-02-15 10:13 | EKG ---
Test Reason : Blood Pressure : / mmHG Vent. Rate : 159 BPM Atrial Rate : 110 BPM P-R Int : 000 ms QRS Dur : 086 ms QT Int : 292 ms P-R-T Axes : 000 026 101 degrees QTc Int : 474 ms POOR DATA QUALITY, INTERPRETATION MAY BE ADVERSELY AFFECTED ATRIAL FIBRILLATION WITH RAPID VENTRICULAR RESPONSE NONSPECIFIC ST AND T WAVE ABNORMALITY ABNORMAL ECG WHEN COMPARED WITH ECG OF 31-JAN-2019 20:00, NO SIGNIFICANT CHANGE WAS FOUND Confirmed by GAYLE BROTHERS, VALENTINA ([id number]) on 02/15/2019 10:12:51 AM Referred By: Confirmed By:VALENTINA ARAUJO MD
--- NOTE | 2019-02-15 10:24 | PN ---
Progress Note, Physician History of Present Illness: Patient seen and examined at bedside. Endorses feeling better than yesterday. She denies nausea vomiting chills chest pain or shortness of breath. Denies urinary symptoms. States she is compliant with her meds and takes lasix daily not BID. States she has been having headaches for the past week but didn't bring this up until I told her about the concerns for stroke. Her acute toxic/ metabolic encephalopathy now resolved. Cultures pending. On exam i noticed her right leg was erythematous and she states when she left the hospital her legs were not erythemous. Edema of the legs which is chronic is at about its baseline per patient. Cr bumped up to 1.6 after receiving lasix IV in the ER. Patient received lasix IV in ER and lactic acidosis resolved but Cr increased. she got spironolactone lasix 40mg po and lisinopril this AM but i held all 3 due to renal failure. Nehphrology and cardiology consulted. Neurology consult pending. MRI brain pending. Still febrile. - Current Medication List Current Medications: Active Medications Acetaminophen (Ofirmev Injection -) 1,000 mg IVPB Q6H PRN PRN Reason: FEVER Albuterol Sulfate (Ventolin Hfa Inhaler -) 2 puff IH Q6H PRN PRN Reason: SHORT OF BREATH/WHEEZING Aspirin (Ecotrin -) 81 mg PO DAILY [facility] Last Admin: 02/15/19 09:21 Dose: 81 mg Atorvastatin Calcium (Lipitor -) 40 mg PO HS [facility] Ferrous Sulfate (Feosol -) 325 mg PO BID [facility] Last Admin: 02/15/19 09:20 Dose: 325 mg Furosemide (Lasix -) 40 mg PO DAILY [facility] Last Admin: 02/15/19 09:20 Dose: 40 mg Nitroglycerin/Dextrose (Nitroglycerin 25mg/D5w 250ml) 25 mg in 250 mls @ 6 mls/ hr IVPB TITR [facility] Last Titration: 02/14/19 18:43 Dose: 0 mcg/min, 0 mls/hr Piperacillin Sod/Tazobactam (Sod 3.375 gm/ Dextrose) 50 mls @ 100 mls/hr IVPB Q8H-IV [facility]; Protocol Insulin Aspart (Novolog Vial Sliding Scale -) 1 vial SQ ACHS [facility]; Protocol Last Admin: 02/15/19 06:11 Dose: Not Given Ipratropium [place] (Atrovent 0.02% Nebulizer -) 1 amp NEB RQID [facility] Lactobacillus Acidophilus (Bacid -) 1 tab PO DAILY [facility] Last Admin: 02/15/19 09:20 Dose: 1 tab Levothyroxine Sodium (Synthroid -) 125 mcg PO DAILY@0700 [facility] Last Admin: 02/15/19 09:46 Dose: Not Given Metoprolol Succinate (Toprol Xl -) 100 mg PO DAILY [facility] Last Admin: 02/15/19 09:21 Dose: 100 mg Rivaroxaban (Xarelto) 20 mg PO HS [facility] Last Admin: 02/15/19 02:23 Dose: 20 mg Vancomycin HCl (Vancomycin (Pre-Docked)) 1,000 mg IVPB Q24H [facility]; Protocol Stop: 02/15/19 17:01 - Objective Vital Signs: Vital Signs Temperature 102 F H 02/15/19 07:37 Pulse Rate 115 H 02/15/19 04:12 Respiratory Rate 16 02/15/19 07:37 Blood Pressure 143/77 02/15/19 04:12 O2 Sat by Pulse Oximetry (%) 94 L 02/15/19 08:58 Constitutional: Yes: No Distress, Calm, Obese Eyes: Yes: Conjunctiva Clear, EOM Intact HENT: Yes: Other (dry mucosa. small laceration on right side of forehead) Cardiovascular: Yes: Pulse Irregular Respiratory: Yes: CTA Bilaterally Gastrointestinal: Yes: Soft, Abdomen, Obese. No: Tenderness, Rebound Genitourinary: Yes: Other (no suprapubic tenderness) Musculoskeletal: Yes: Other (muscle strength 5/5 globally). No: Muscle Weakness Extremities: Yes: Other (erythema and warmth of RLE chronic stasis dermatitis bilaterally) Edema: Yes Edema: LLE: 1+, RLE: 1+ Neurological: Yes: Alert, Oriented, Cran Nerves II-XII Intact, Other (sensation in tact globally). No: Dysarthria, Facial Droop, Loss of Sensation Psychiatric: Yes: Alert, Oriented Labs: CBC, BMP 02/15/19 06:07 02/15/19 06:07 INR, PTT INR 1.79 (0.83-1.09) H 02/14/19 16:34 - ....Imaging Chest X-ray: Report Reviewed, Image Reviewed Cat Scan: Image Reviewed Impression/Plan Impression/Plan: 73F with multiple medical problems including systolic CHF CAD afib on xarelto hypothyroidism and chronic venous stasis dermatitis and swelling presents with severe sepsis, hypertensive emergency, and subacute stroke. A/P: Severe sepsis secondary to possible UTI but i doubt the UTI is the only cause as patient is asymptomatic without urinary symptoms and I found cellulitis of her RLE which patient states was not erythematous in the past. Will discuss with ID continue zosyn per ID consider adding Vanco for MRSA coverage UA positive with 1+ LE and 41 WBCs start LR @ 75ml/hr Acute metabolic/toxic encephalopathy secondary to sepsis resolved now AAOx3 Lactic acidosis resolved but no documentation of IVF given patient was given lasix Acute renal failure left hospital 10 days ago with creatinine 1.0 came in with 1.2 yesterday and now 1.6 today Hold lisinopril and spironolactone for now nephrology consult-discussed with Dr. Onofre hypertensive emergency with end organ damage (GEMAM and stroke) BP controlled at this time Patient states she is on amlodipine at home but doesnt know dose will start 5mg po daily since we will stop lisinopril spironolactone and lasix for now Afib rate controlled continue metoprolol continue xarelto CHF-systolic function mildly reduced per recent Echo done earlier this month I do not think the patient is in CHF exacerbation patient looks volume depleted so will start fluids cardiology consult-known to Dr. Burleson. Discussed with him possible CVA Head CT report showed subtle hypodensity in left basal ganglia concern for a subacute lacunar infarct MRI brain neurology consult on high intensity Statin continue aspirin speech/swallow consult CAD continue high intensity statin aspirin and beta saba Hyperglycemia likely secondary to stress/infection not a diabetic-HbA1C 5.5% done earlier this month on 02/02/19 ISS Chronic Venous stasis dermatitis and edema Dr. Ramirez wound care/vascular Sx consult Hypothyroidism: Continue synthroid TSH WNL FEN: Start LR @ 75ml/hr no electrolyte issues Sodium controlled diet PPx: Xarelto for DVT PT consult to avoid deconditioning Visit type - Emergency Visit Emergency Visit: Yes ED Registration Date: 02/14/19 Care time: The patient presented to the Emergency Department on the above date and was hospitalized for further evaluation of their emergent condition. - New Patient This patient is new to me today: Yes Date on this admission: 02/15/19 - Critical Care Critical Care patient: No
--- NOTE | 2019-02-15 10:34 | CON.CARD ---
Consult Consult Specialty:: cardiology Reason for Consultation:: CHF; AF; new CVA - History of Present Illness Chief Complaint: Pt A&Ox3; able to move all limbs on request; no chest pain, palpitations, or dyspnea.Legs are warm; denies dysuria. History of Present Illness: 73-year-old black female with past medical history of mildly reduced systolic LVEF/diastoic CHF on 40 mg of Lasix BID, lisinopril, spironolactone,, atrial fibrillation on Xarelto, CAD, bilateral chronic venous stasis (s/p vascular procedures by Dr. Dario Ramirez), hypothyroidism, diabetes, urinary incontinence, morbid obesity,. Presents to the emergency department after being found down by her daughter. Patient's daughter reports that she left home at 10:30 AM this morning, only to return to find her mother on the ground at 2:30 PM. Patient was awake but lethargic. The patient's daughter reports that she often skips her medications, most frequently Lasix as she does not want to go to the bathroom. In addition, the patient's daughter also reports frequent dietary indiscretion and that patient eats [employer] frequently. Pt says she was getting ready to go to work in the morning. She had come out of the bathroom and was seated in a chair to get dressed. When she got up, she fell forward, remembers hitting her head, but nothing afterward until her daughter found her a few hours later. She denies prior hx of syncope. Pt was noted to have a temperature of 104R in the ER, with warm, erythematous RLE. - History Source History Provided By: Patient, Medical Record Limitations to Obtaining History: No Limitations - Past Medical History Cardio/Vascular: Yes: AFIB, CHF (mild systolic LV dysfunction; + diastolic dysfunction), HTN Pulmonary: Yes: Other (possible Sleep Apnea ). No: Asthma, COPD, O2 Dependent, Pneumonia, Previously Intubated, Pulmonary Embolus, Pulmonary Fibrosis Renal/: Yes: Renal Inusuff Reproductive: Yes: Postmenopausal ...: No Heme/Onc: No: Anemia Psych: Yes: Other Musculoskeletal: Yes: Chronic low back pain Endocrine: Yes: Hypothyroidism Dermatology: Yes: Cellulitis - Past Surgical History Past Surgical History: Yes: (About 26 years ago), Hysterectomy, Vein Stripping/Ligation (LE vascular procedures) - Alcohol/Substance Use Hx Alcohol Use: No History of Substance Use: reports: None - Smoking History Smoking history: Former smoker (Smoked from 14 years to 33 years) Have you smoked in the past 12 months: No If you are a former smoker, when did you quit?: 40 yrs ago - Social History ADL: Independent Home Medications - Allergies Allergies/Adverse Reactions: Allergies Allergy/AdvReac Type Severity Reaction Status Date / Time shrimp Allergy Hives Verified 01/31/19 19:06 - Home Medications Home Medications: Ambulatory Orders Levothyroxine Sodium [Synthroid] 125 mcg PO DAILY 04/10/17 Rivaroxaban [Xarelto -] 20 mg PO HS 04/10/17 Albuterol Sulfate Inhaler - [Ventolin HFA Inhaler -] 1 - 2 inh PO Q6H PRN #1 inhaler 11/28/18 Metoprolol Succinate [Toprol XL -] 100 mg PO DAILY #30 tab.sr.24h 11/28/18 Spironolactone [Aldactone] 25 mg PO MOWEFR #20 tablet 11/28/18 Ferrous Sulfate [Feosol] 325 mg PO BID #60 ud 12/31/18 Ipratropium 0.02% Nebulizer [Atrovent 0.02% Nebulizer -] 1 neb NEB QID 01/31/19 Ipratropium [place] [Atrovent Hfa] 2.5 gm IH QID PRN 01/31/19 Furosemide [Lasix -] 40 mg PO DAILY #30 tablet 02/05/19 Lactobacillus Acidophilus [Bacid -] 1 tab PO DAILY #30 tab 02/05/19 Lisinopril [Prinivil] 2.5 mg PO DAILY #30 tablet 02/05/19 Family Medical History Family History: Denies Review of Systems - Review of Systems Constitutional: reports: Weakness Eyes: reports: No Symptoms HENT: reports: No Symptoms Neck: reports: No Symptoms Cardiovascular: reports: No Symptoms Respiratory: reports: No Symptoms Gastrointestinal: reports: No Symptoms Genitourinary: reports: No Symptoms Breasts: reports: No Symptoms Reported, Pain Musculoskeletal: reports: Joint Swelling (LE; chronic), Muscle Weakness Integumentary: reports: No Symptoms Neurological: reports: Syncope, Weakness Endocrine: reports: No Symptoms Hematology/Lymphatic: reports: No Symptoms Psychiatric: reports: Other - Risk Factors Known Risk Factors: Yes: Age, Gender, Hypercholesterolemia, Hypertension, Physical Inactivity, Prior DC /Emb Stroke, Race Vital Signs: Vital Signs Temperature 102 F H 02/15/19 07:37 Pulse Rate 115 H 02/15/19 04:12 Respiratory Rate 16 02/15/19 07:37 Blood Pressure 143/77 02/15/19 04:12 O2 Sat by Pulse Oximetry (%) 94 L 02/15/19 08:58 Constitutional: Yes: Calm, Obese Eyes: Yes: WNL HENT: Yes: WNL Neck: Yes: WNL Respiratory: Yes: WNL Gastrointestinal: Yes: WNL Renal/: No: Anuria Cardiovascular: Yes: WNL JVD: No Carotid Bruit: No PMI: Non-Displaced Heart Sounds: Yes: S1, S2, S4 Murmur: Yes: Systolic Murmur, Grade 2 Musculoskeletal: Yes: Joint Stiffness, Muscle Weakness Extremities: Yes: Cool, Erythema (patch on RLE), Other (chronic hyperpigmentation and non-pitting LE edema to knees) Edema: Yes Peripheral Pulses WNL: Yes Integumentary: Yes: Venous Stasis Changes Neurological: Yes: Alert, Oriented, Weakness Psychiatric: Yes: Alert, Oriented - Other Data Labs, Other Data: CBC, BMP 02/15/19 06:07 02/15/19 06:07 INR, PTT INR 1.79 (0.83-1.09) H 02/14/19 16:34 Troponin, BNP 02/14/19 02/14/19 16:34 16:34 Troponin I < 0.02 B-Natriuretic Peptide 4449.3 H Cancelled Troponin, BNP 02/14/19 02/14/19 16:34 16:34 Troponin I < 0.02 B-Natriuretic Peptide 4449.3 H Cancelled Abnormal Lab Results 02/19/19 02/19/19 05:35 05:35 RDW 16.4 H Monocytes % 10.7 H Anion Gap 7 L Ejection Fraction %: LVEF > or = 40 % Imaging - Results Chest X-ray: Image Reviewed EKG: Image Reviewed Problem List - Problems (1) CVA (cerebral vascular accident) Assessment/Plan: f/u head imaging Pt has been on rivaroxaban for AF anticoagulation. Code(s): I63.9 - CEREBRAL INFARCTION, UNSPECIFIED (2) Hyperlipidemia Assessment/Plan: f/u lipid profile; statin Code(s): E78.5 - HYPERLIPIDEMIA, UNSPECIFIED (3) Sepsis Assessment/Plan: Cellulitis of right LE; ? UTI. On antibiotics per ID. Mild increase in CR-->lisinopril and spironolactone held. (Continue metoprolol ER and amlodipine for HTN, and consider hydralazine + nitrate for systolic CHF and HTN). Sepsis with high fever-->IVF (mild congestion on CXR; no JVD or dyspnea; f/u BUn /Cr, electrolytes, daily weight, Is and Os, clinical response). Code(s): A41.9 - SEPSIS, UNSPECIFIED ORGANISM Qualifiers: Sepsis type: sepsis due to unspecified organism Sepsis acute organ dysfunction status: with acute organ dysfunction Severe sepsis acute organ dysfunction type: acute respiratory failure Acute respiratory failure type: unspecified Severe sepsis shock status: without septic shock Qualified Code( s): A41.9 - Sepsis, unspecified organism; R65.20 - Severe sepsis without septic shock; J96.00 - Acute respiratory failure, unspecified whether with hypoxia or hypercapnia (4) Syncope Code(s): R55 - SYNCOPE AND COLLAPSE (5) UTI (urinary tract infection) Code(s): N39.0 - URINARY TRACT INFECTION, SITE NOT SPECIFIED Qualifiers: Urinary tract infection type: site unspecified Hematuria presence: without hematuria Qualified Code(s): N39.0 - Urinary tract infection, site not specified (6) Acute on chronic systolic and diastolic heart failure, NYHA class 2 Assessment/Plan: see under "Sepsis". Code(s): I50.43 - ACUTE ON CHRONIC COMBINED SYSTOLIC AND DIASTOLIC HRT FAIL (7) Afib Assessment/Plan: On metoprolol ER for HR control. On rivaroxaban for anticoagulation (f/u head imaging after pt's fall-->? hitting forehead). Code(s): I48.91 - UNSPECIFIED ATRIAL FIBRILLATION Qualifiers: Atrial fibrillation type: other persistent Qualified Code(s): I48.19 - Other persistent atrial fibrillation (8) Cellulitis Code(s): L03.90 - CELLULITIS, UNSPECIFIED Qualifiers: Site of cellulitis: extremity Site of cellulitis of extremity: lower extremity Laterality: left Qualified Code(s): L03.116 - Cellulitis of left lower limb (9) Morbid obesity Code(s): E66.01 - MORBID (SEVERE) OBESITY DUE TO EXCESS CALORIES (10) HTN (hypertension) Code(s): I10 - ESSENTIAL (PRIMARY) HYPERTENSION Qualifiers: Hypertension type: essential hypertension Qualified Code(s): I10 - Essential (primary) hypertension (11) Hypothyroid Code(s): E03.9 - HYPOTHYROIDISM, UNSPECIFIED Qualifiers: Hypothyroidism type: unspecified Qualified Code(s): E03.9 - Hypothyroidism , unspecified (12) Lymphedema of both lower extremities Code(s): I89.0 - LYMPHEDEMA, NOT ELSEWHERE CLASSIFIED
--- NOTE | 2019-02-15 11:14 | CONSULT ---
Consult - text type - Consultation Consultation Note: Neurology - Admission Chief Complaint: AMS x1 day History of Present Illness: 73 yo F with PMHx of CHF (lasix 40 bid), Afib on xarelto, CAD with cardiac cath (no stents), b/l chronic venous stasis, hypothyroidism, DM, urinary incontinence , BIBA for altered mental status, after she was found on the floor by the daughter. Per daughter, patient's last known well was around 10:30am prior to admission, when she was using her nebulizer treatment. Around 2:30 PM when the daughter returned, she found the pt on the floor covered in urine and feces and naked from waist down. Pt was reported to be confused and oriented to only self. Pt was also noted to have a temp of 103, tachycardia and elevated BP to 180s (daughter is a PT). Initially on arrival in ED, pt was febrile to 104, still confused with BP up to 180s/120, with tachypnea to 130s and tachycardia. Pt was placed on Bipap and a nitrodrip was started. CT head and spine was done pt noted to have subacute basal ganglia lacunar infarcts in ED but was noted to be out of TPA window. Official report pending for head CT, spine, cervical, and lumber CT. Carotid doppler completed, mild intimal thickening at the common carotid bifurcation bilaterally without significant stenosis. She described falling on her urine and hitting her forehead against a hard surface, then passing out for an unknown period of time. She denies seizures, or chest pain before or during the fall. She also denied fever and diarrhea. She acknowledges urinary incontinence and suprapubic pain. Per pt's daughter, pt is non compliant at baseline intermittently takes the lasix prescribed (40bid, 40mg daily in chart), does not check BP, do daily weights or comply with salt restricted diet. Per pulm last visit, did not think she had COPD, rather possible PATRICIA. Pt yet to get the sleep study done. PT BUN/Cr, trending up, currently 21/0.6, WBC trending up, elevated 22.2. Lactic acid elevated on admission at 2.2, decreased to 1.5. Pt LDL 97. Pt started on statin 40mg daily , aspirin 81mg daily, and xarelto daily. Brain MRI ordered, not yet completed. Pt was recently discharged 02/05/19 after being treated for Klebsiella UTI with zosyn and acute CHF exacerbation. Per daughter, pt deteriorates rapidly. - Past Medical History Cardiovascular: Yes: AFIB, CHF, HTN Pulmonary: Yes: Other (possible Sleep Apnea ). No: Asthma, COPD, O2 Dependent, Pneumonia, Previously Intubated, Pulmonary Embolus, Pulmonary Fibrosis Psych: Yes: Other Endocrine: Yes: Hypothyroidism - Past Surgical History Past Surgical History: Yes: (About 26 years ago), Hysterectomy - Smoking History Smoking history: Former smoker (Smoked from 14 years to 33 years) Have you smoked in the past 12 months: No If you are a former smoker, when did you quit?: 40 yrs ago - Alcohol/Substance Use Hx Alcohol Use: No History of Substance Use: reports: None - Social History Usual Living Arrangement: Yes: With Child ADL: Independent Home Medications - Allergies Allergies/Adverse Reactions: Allergies Allergy/AdvReac Type Severity Reaction Status Date / Time shrimp Allergy Hives Verified 01/31/19 19:06 - Home Medications Ambulatory Orders Levothyroxine Sodium [Synthroid] 125 mcg PO DAILY 04/10/17 Rivaroxaban [Xarelto -] 20 mg PO HS 04/10/17 Albuterol Sulfate Inhaler - [Ventolin HFA Inhaler -] 1 - 2 inh PO Q6H PRN #1 inhaler 11/28/18 Metoprolol Succinate [Toprol XL -] 100 mg PO DAILY #30 tab.sr.24h 11/28/18 Spironolactone [Aldactone] 25 mg PO MOWEFR #20 tablet 11/28/18 Ferrous Sulfate [Feosol] 325 mg PO BID #60 ud 12/31/18 Ipratropium 0.02% Nebulizer [Atrovent 0.02% Nebulizer -] 1 neb NEB QID 01/31/19 Ipratropium [place] [Atrovent Hfa] 2.5 gm IH QID PRN 01/31/19 Furosemide [Lasix -] 40 mg PO DAILY #30 tablet 02/05/19 Lactobacillus Acidophilus [Bacid -] 1 tab PO DAILY #30 tab 02/05/19 Lisinopril [Prinivil] 2.5 mg PO DAILY #30 tablet 02/05/19 Active Medications Acetaminophen (Ofirmev Injection -) 1,000 mg IVPB Q6H PRN PRN Reason: FEVER Albuterol Sulfate (Ventolin Hfa Inhaler -) 2 puff IH Q6H PRN PRN Reason: SHORT OF BREATH/WHEEZING Amlodipine Besylate (Norvasc -) 10 mg PO DAILY [facility] Aspirin (Ecotrin -) 81 mg PO DAILY [facility] Last Admin: 02/15/19 09:21 Dose: 81 mg Atorvastatin Calcium (Lipitor -) 40 mg PO HS [facility] Ferrous Sulfate (Feosol -) 325 mg PO BID [facility] Last Admin: 02/15/19 09:20 Dose: 325 mg Furosemide (Lasix -) 40 mg PO DAILY [facility] Last Admin: 02/15/19 09:20 Dose: 40 mg Nitroglycerin/Dextrose (Nitroglycerin 25mg/D5w 250ml) 25 mg in 250 mls @ 6 mls/ hr IVPB TITR [facility] Last Titration: 02/14/19 18:43 Dose: 0 mcg/min, 0 mls/hr Piperacillin Sod/Tazobactam (Sod 3.375 gm/ Dextrose) 50 mls @ 100 mls/hr IVPB Q8H-IV [facility]; Protocol Lactated Ringer's (Lactated Ringers Solution) 1,000 ml in 1,000 mls @ 75 mls/ hr IV ASDIR [facility] Insulin Aspart (Novolog Vial Sliding Scale -) 1 vial SQ ACHS [facility]; Protocol Last Admin: 02/15/19 06:11 Dose: Not Given Ipratropium [place] (Atrovent 0.02% Nebulizer -) 1 amp NEB RQID [facility] Last Admin: 02/15/19 08:30 Dose: 1 amp Lactobacillus Acidophilus (Bacid -) 1 tab PO DAILY [facility] Last Admin: 02/15/19 09:20 Dose: 1 tab Levothyroxine Sodium (Synthroid -) 125 mcg PO DAILY@0700 [facility] Last Admin: 02/15/19 09:46 Dose: Not Given Metoprolol Succinate (Toprol Xl -) 100 mg PO DAILY [facility] Last Admin: 02/15/19 09:21 Dose: 100 mg Rivaroxaban (Xarelto) 20 mg PO [facility] Last Admin: 02/15/19 02:23 Dose: 20 mg Vancomycin HCl (Vancomycin (Pre-Docked)) 1,000 mg IVPB Q24H [facility]; Protocol Stop: 02/15/19 17:01 Review of Systems - Review of Systems Respiratory: reports: SOB, Wheezing Genitourinary: reports: Frequency, Incontinence All else negative Physical Examination Vital Signs: Vital Signs Period Temp Pulse Resp BP Sys/Ray Pulse Ox Last 24 Hr 99.9 F-104.4 F 97-169 16-40 115-206/59-170 2-99 Constitutional: Yes: Moderate Distress, Obese HENT: Yes: Other (bipap). No: Atraumatic (Forehead with laceration/bruise about 5cm, freash, not actively bleeding with swelling) Cardiovascular: Yes: Tachycardia, S1, S2. No: Murmur Respiratory: Yes: Wheezes Gastrointestinal: Yes: Tenderness (suprAPUBIC) Renal/: Yes: Incontinence Musculoskeletal: Yes: Joint Swelling (b/L KNEE SWELLING) Edema: LLE: 1+, RLE: 1+ Integumentary: Yes: Venous Stasis Changes Neurological: Somnolent but arousable, cranial nerves appear intact, moves all extremities equally, sensory intact, finger to nose normal Psychiatric: Yes: Alert, Oriented Labs: CBCD WBC 22.2 K/mm3 (4.0-10.0) H 02/15/19 06:07 RBC 4.07 M/mm3 (3.60-5.2) 02/15/19 06:07 Hgb 12.0 GM/dL (10.7-15.3) 02/15/19 06:07 Hct 37.2 % (32.4-45.2) 02/15/19 06:07 MCV 91.2 fl (80-96) 02/15/19 06:07 MCHC 32.2 g/dl (32.0-36.0) 02/15/19 06:07 RDW 16.9 % (11.6-15.6) H 02/15/19 06:07 Plt Count 157 K/MM3 (134-434) D 02/15/19 06:07 MPV 9.9 fl (7.5-11.1) 02/15/19 06:07 CMP Sodium 138 mmol/L (136-145) 02/15/19 06:07 Potassium 3.8 mmol/L (3.5-5.1) 02/15/19 06:07 Chloride 101 mmol/L (98-107) 02/15/19 06:07 Carbon Dioxide 29 mmol/L (21-32) 02/15/19 06:07 Anion Gap 8 MMOL/L (8-16) 02/15/19 06:07 BUN 21.0 mg/dL (7-18) H 02/15/19 06:07 Creatinine 1.6 mg/dL (0.55-1.3) H 02/15/19 06:07 Random Glucose 119 mg/dL (74-106) H 02/15/19 06:07 Calcium 8.2 mg/dL (8.5-10.1) L 02/15/19 06:07 Total Bilirubin 1.2 mg/dL (0.2-1) H 02/15/19 06:07 AST 31 U/L (15-37) 02/15/19 06:07 ALT 26 U/L (13-61) 02/15/19 06:07 Alkaline Phosphatase 66 U/L (45-117) 02/15/19 06:07 Total Protein 7.2 g/dl (6.4-8.2) 02/15/19 06:07 Albumin 2.9 g/dl (3.4-5.0) L 02/15/19 06:07 CARDIAC ENZYMES Creatine Kinase 128 U/L (26-192) 02/14/19 16:34 Troponin I < 0.02 ng/ml (0.00-0.05) 02/14/19 16:34 Assessment/Plan Pt is a 73 yo F with PMHx of CHF (lasix 40 bid), Afib on xarelto, CAD with cardiac cath (no stents), b/l chronic venous stasis, hypothyroidism, DM, urinary incontinence, BIBA for altered mental status, after she was found on the floor by the daughter. Per daughter, patient's last known well was around 10 :30am prior to admission, when she was using her nebulizer treatment. Around 2: 30 PM when the daughter returned, she found the pt on the floor covered in urine and feces and naked from waist down. Pt was reported to be confused and oriented to only self. Pt was also noted to have a temp of 103, tachycardia and elevated BP to 180s (daughter is a PT). Initially on arrival in ED, pt was febrile to 104, still confused with BP up to 180s/120, with tachypnea to 130s and tachycardia. Pt was placed on Bipap and a nitrodrip was started. CT head and spine was done pt noted to have subacute basal ganglia lacunar infarcts in ED but was noted to be out of TPA window. Official report pending for head CT, spine, cervical, and lumber CT. Carotid doppler completed, mild intimal thickening at the common carotid bifurcation bilaterally without significant stenosis. She described falling on her urine and hitting her forehead against a hard surface, then passing out for an unknown period of time. She denies seizures, or chest pain before or during the fall. She also denied fever and diarrhea. She acknowledges urinary incontinence and suprapubic pain. Per pt's daughter, pt is non compliant at baseline intermittently takes the lasix prescribed (40bid, 40mg daily in chart), does not check BP, do daily weights or comply with salt restricted diet. Per pulm last visit, did not think she had COPD, rather possible PATRICIA. Pt yet to get the sleep study done. PT BUN/Cr, trending up, currently 21/0.6, WBC trending up, elevated 22.2. Lactic acid elevated on admission at 2.2, decreased to 1.5. Pt LDL 97. Pt started on statin 40mg daily, aspirin 81mg daily, and xarelto daily. Brain MRI ordered, not yet completed. continue medical optimization, stroke management. No longer in window for permissive hypertension, maintain blood pressure less than 140/ 90 for now, prefer < 130/80 as basal ganglia infarct possibly due to hypertension and small vessel disease. Physical therapy as tolerated, fall precautions. Medication compliance extremely important and discussed with patient.
[2019-02-15] MEDS: LACTATED RINGERS SOLUTION 1,000 ML/1,000 ML INFUS.BAG IV SCH (13:08)
[2019-02-15] MEDS: amLODIPine BESYLATE 10 MG TABLET (FP) PO SCH (13:08)
[2019-02-15] MEDS ORDERED: VANCOMYCIN 1 GM in D5W (PRE-DOCKED) 1,000 MG/250 ML IVPB SCH (17:00)
[2019-02-15] MEDS: NITROGLYCERIN 25MG/D5W 250ML 25 MG/250 ML ML IVPB SCH (17:13)
--- NOTE | 2019-02-15 18:06 | CONSULT ---
Consult Consult Specialty:: Nephrology Reason for Consultation:: GEMMA - History of Present Illness Chief Complaint: altered mental status History of Present Illness: Pt is a 73 year old female with pmhx of chf, a-fib, cad, hypothyridism, dm, and urine incontinence who presents to the ER with alered mental status. She was found on the floor by her daughter. Pt was febrile and tachycardic. She was also hypertensive. She was put on a nitro drip. She was found to have a basal ganglia lacunar infarct. I was called to evaluate her for elevated creatinine. She is not able to give much history as she says she is tired. Her daughter is at bedside and assisted. - History Source History Provided By: Family Member - Past Medical History Cardio/Vascular: Yes: AFIB, CHF (mild systolic LV dysfunction; + diastolic dysfunction), HTN Pulmonary: Yes: Other (possible Sleep Apnea ) Renal/: Yes: Renal Inusuff ...: No Psych: Yes: Other Musculoskeletal: Yes: Chronic low back pain Endocrine: Yes: Hypothyroidism Dermatology: Yes: Cellulitis - Past Surgical History Past Surgical History: Yes: (About 26 years ago), Hysterectomy, Vein Stripping/Ligation (LE vascular procedures) - Alcohol/Substance Use Hx Alcohol Use: No History of Substance Use: reports: None - Smoking History Smoking history: Former smoker (Smoked from 14 years to 33 years) Have you smoked in the past 12 months: No If you are a former smoker, when did you quit?: 40 yrs ago - Social History ADL: Independent Home Medications - Allergies Allergies/Adverse Reactions: Allergies Allergy/AdvReac Type Severity Reaction Status Date / Time shrimp Allergy Hives Verified 01/31/19 19:06 - Home Medications Home Medications: Ambulatory Orders Levothyroxine Sodium [Synthroid] 125 mcg PO DAILY 04/10/17 Rivaroxaban [Xarelto -] 20 mg PO HS 04/10/17 Albuterol Sulfate Inhaler - [Ventolin HFA Inhaler -] 1 - 2 inh PO Q6H PRN #1 inhaler 11/28/18 Metoprolol Succinate [Toprol XL -] 100 mg PO DAILY #30 tab.sr.24h 11/28/18 Spironolactone [Aldactone] 25 mg PO MOWEFR #20 tablet 11/28/18 Ferrous Sulfate [Feosol] 325 mg PO BID #60 ud 12/31/18 Ipratropium 0.02% Nebulizer [Atrovent 0.02% Nebulizer -] 1 neb NEB QID 01/31/19 Ipratropium [place] [Atrovent Hfa] 2.5 gm IH QID PRN 01/31/19 Furosemide [Lasix -] 40 mg PO DAILY #30 tablet 02/05/19 Lactobacillus Acidophilus [Bacid -] 1 tab PO DAILY #30 tab 02/05/19 Lisinopril [Prinivil] 2.5 mg PO DAILY #30 tablet 02/05/19 Family Medical History Family History: Denies Review of Systems - Review of Systems Constitutional: reports: Malaise Eyes: reports: No Symptoms HENT: reports: No Symptoms Neck: reports: No Symptoms Respiratory: reports: No Symptoms Musculoskeletal: reports: Muscle Weakness Neurological: reports: Change in LOC Endocrine: reports: No Symptoms Hematology/Lymphatic: reports: No Symptoms Psychiatric: reports: No Symptoms Physical Exam Vital Signs: Vital Signs Temperature 98.3 F 02/15/19 10:00 Pulse Rate 91 H 02/15/19 10:00 Respiratory Rate 21 H 02/15/19 10:00 Blood Pressure 134/79 02/15/19 10:00 O2 Sat by Pulse Oximetry (%) 96 02/15/19 16:04 Constitutional: Yes: Calm Eyes: Yes: Conjunctiva Clear HENT: Yes: Atraumatic Neck: Yes: Supple Cardiovascular: Yes: S1, S2 Respiratory: Yes: CTA Bilaterally Gastrointestinal: Yes: Soft Renal/: Yes: WNL Musculoskeletal: Yes: WNL Edema: Yes Edema: LLE: 1+, RLE: 1+ Neurological: Yes: Lethargy Labs: CBC, BMP 02/15/19 06:07 02/15/19 06:07 Imaging - Results Chest X-ray: Report Reviewed Problem List - Problems (1) Altered mental status Code(s): R41.82 - ALTERED MENTAL STATUS, UNSPECIFIED Qualifiers: Altered mental status type: disorientation Qualified Code(s): R41.0 - Disorientation, unspecified (2) Basal ganglia infarction Code(s): I63.9 - CEREBRAL INFARCTION, UNSPECIFIED (3) CVA (cerebral vascular accident) Code(s): I63.9 - CEREBRAL INFARCTION, UNSPECIFIED (4) Sepsis Code(s): A41.9 - SEPSIS, UNSPECIFIED ORGANISM Qualifiers: Sepsis type: sepsis due to unspecified organism Sepsis acute organ dysfunction status: with acute organ dysfunction Severe sepsis acute organ dysfunction type: acute respiratory failure Acute respiratory failure type: unspecified Severe sepsis shock status: without septic shock Qualified Code( s): A41.9 - Sepsis, unspecified organism; R65.20 - Severe sepsis without septic shock; J96.00 - Acute respiratory failure, unspecified whether with hypoxia or hypercapnia Assessment/Plan Current Medications Generic Name Dose Route Start Last Admin Trade Name Freq PRN Reason Stop Dose Admin Acetaminophen 1,000 mg 02/15/19 05:58 02/15/19 16:16 Ofirmev Injection - IVPB 1,000 mg Q6H PRN Administration FEVER Albuterol Sulfate 2 puff 02/14/19 22:28 Ventolin Hfa Inhaler - IH Q6H PRN SHORT OF BREATH/WHEEZING Amlodipine Besylate 10 mg 02/15/19 11:00 02/15/19 13:08 Norvasc - PO 10 mg DAILY ALYSSA Administration Aspirin 81 mg 02/15/19 10:00 02/15/19 09:21 Ecotrin - PO 81 mg DAILY ALYSSA Administration Atorvastatin Calcium 40 mg 02/15/19 22:00 Lipitor - PO HS ALYSSA Ferrous Sulfate 325 mg 02/15/19 10:00 02/15/19 09:20 Feosol - PO 325 mg BID ALYSSA Administration Furosemide 40 mg 02/15/19 10:00 02/15/19 09:20 Lasix - PO 40 mg DAILY ALYSSA Administration Nitroglycerin/Dextrose 25 mg in 250 mls @ 6 mls/hr 02/14/19 17:00 02/15/19 17 :13 Nitroglycerin 25mg/D5w 250ml IVPB Not Given TITR ALYSSA 10 MCG/MIN Piperacillin Sod/Tazobactam 50 mls @ 100 mls/hr 02/15/19 18:00 02/15/19 17:14 Sod 3.375 gm/ Dextrose IVPB 100 mls/hr Q8H-IV ALYSSA Administration Protocol Lactated Ringer's 1,000 ml in 1,000 mls @ 75 mls/hr 02/15/19 11:00 02/15/19 13:08 Lactated Ringers Solution IV 75 mls/hr ASDIR ALYSSA Administration Insulin Aspart 1 vial 02/15/19 07:00 02/15/19 16:22 Novolog Vial Sliding Scale - SQ Not Given ACHS ALYSSA Protocol Ipratropium [place] 1 amp 02/15/19 08:00 02/15/19 16:05 Atrovent 0.02% Nebulizer - NEB 1 amp RQID ALYSSA Administration Lactobacillus Acidophilus 1 tab 02/15/19 10:00 02/15/19 09:20 Bacid - PO 1 tab DAILY ALYSSA Administration Levothyroxine Sodium 125 mcg 02/15/19 07:00 02/15/19 09:46 Synthroid - PO Not Given DAILY@0700 ALYSSA Metoprolol Succinate 100 mg 02/14/19 22:28 02/15/19 09:21 Toprol Xl - PO 100 mg DAILY ALYSSA Administration Rivaroxaban 20 mg 02/14/19 22:28 02/15/19 02:23 Xarelto PO 20 mg HS ALYSSA Administration Impression 1. GEMMA 2. sepsis 3. htn 4. cva 5. chf 6. hld Plan - repeat labs in am - check urine lytes and glass embosser - check renal ultrasound - bp improved - cont fluids and monitor volume status closely - am cxr - monitor pulse ox
[2019-02-15] MEDS: ATORVASTATIN CA 40 MG TABLET (FP) PO SCH (22:27)
[2019-02-16] MEDS ORDERED: PIPERACILLIN/TAZOBACTAM 3.375 GM VIAL IVPB ONE ×3 (00:40→16:46)
[2019-02-16] MEDS ORDERED: DEXTROSE 5%-WATER - 50 ML IVPB ONE ×3 (00:40→16:46)
[2019-02-16] MEDS: PIPERACILLIN/TAZOB 3.375 GM 3.375 GM in DEXTROSE 5%-WATER - 50 ML IVPB SCH ×3 (01:02→17:24)
[2019-02-16] MEDS: LACTATED RINGERS SOLUTION 1,000 ML/1,000 ML INFUS.BAG IV SCH (04:04)
[2019-02-16] MEDS: LEVOTHYROXINE NA 125 MCG TABLET (FP) PO SCH (06:15)
[2019-02-16] MEDS: INSULIN SLIDING SCALE (NOVOLOG) 1 VIAL SQ SCH ×4 (06:16→22:45)
[2019-02-16] MEDS: IPRATROPIUM BR 0.02% 0.5 MG/2.5 ML VIAL.NEB. NEB SCH ×4 (07:40→20:14)
[2019-02-16 08:06] LABS: ALBUMIN 2.5 g/dl (3.4-5.0); BILIRUBIN,TOTAL 0.7 mg/dL (0.2-1); BLOOD UREA NITROGEN 24.8 mg/dL (7-18); CALCIUM 8.2 mg/dL (8.5-10.1); CREATININE 1.4 mg/dL (0.55-1.3); MAGNESIUM 2.2 mg/dL (1.8-2.4); POTASSIUM 3.4 mmol/L (3.5-5.1); TOT PROT 6.4 g/dl (6.4-8.2)
[2019-02-16] MEDS ORDERED: POTASSIUM CHLORIDE TABS 20 MEQ TABLET.ER (FP) PO ONE (08:07)
[2019-02-16 08:23] LABS: BASO % 0.5 % (0-2.0); EOS % 0.7 % (0-4.5); HEMATOCRIT 32.2 % (32.4-45.2); HEMOGLOBIN 10.4 GM/dL (10.7-15.3); LYMPH % 10.1 % (8-40); MCH 29.8 pg (25.7-33.7); MCHC 32.3 g/dl (32.0-36.0); MEAN CELL VOLUME 92.4 fl (80-96); MEAN PLT VOLUME 10.2 fl (7.5-11.1); MONO % 7.1 % (3.8-10.2); NEUT % 81.6 % (42.8-82.8); PLATELET COUNT 133 K/MM3 (134-434); RBC 3.49 M/mm3 (3.60-5.2); WHITE BLOOD COUNT 12.6 K/mm3 (4.0-10.0)
--- NOTE | 2019-02-16 08:53 | PN ---
Progress Note (short form) - Note Progress Note: Neurology - Admission Chief Complaint: AMS x1 day History of Present Illness: 73 yo F with PMHx of CHF (lasix 40 bid), Afib on xarelto, CAD with cardiac cath (no stents), b/l chronic venous stasis, hypothyroidism, DM, urinary incontinence , BIBA for altered mental status, after she was found on the floor by the daughter. Per daughter, patient's last known well was around 10:30am prior to admission, when she was using her nebulizer treatment. Around 2:30 PM when the daughter returned, she found the pt on the floor covered in urine and feces and naked from waist down. Pt was reported to be confused and oriented to only self. Pt was also noted to have a temp of 103, tachycardia and elevated BP to 180s (daughter is a PT). Initially on arrival in ED, pt was febrile to 104, still confused with BP up to 180s/120, with tachypnea to 130s and tachycardia. Pt was placed on Bipap and a nitrodrip was started. CT head and spine was done pt noted to have subacute basal ganglia lacunar infarcts in ED but was noted to be out of TPA window. Official report pending for head CT, spine, cervical, and lumber CT. Carotid doppler completed, mild intimal thickening at the common carotid bifurcation bilaterally without significant stenosis. She described falling on her urine and hitting her forehead against a hard surface, then passing out for an unknown period of time. She denies seizures, or chest pain before or during the fall. She also denied fever and diarrhea. She acknowledges urinary incontinence and suprapubic pain. Per pt's daughter, pt is non compliant at baseline intermittently takes the lasix prescribed (40bid, 40mg daily in chart), does not check BP, do daily weights or comply with salt restricted diet. Per pulm last visit, did not think she had COPD, rather possible PATRICIA. Pt yet to get the sleep study done. PT BUN/Cr, trending up, currently 21/0.6, WBC trending up, elevated 22.2. Lactic acid elevated on admission at 2.2, decreased to 1.5. Pt LDL 97. Pt started on statin 40mg daily , aspirin 81mg daily, and xarelto daily. Brain MRI ordered, not yet completed. Pt was recently discharged 02/05/19 after being treated for Klebsiella UTI with zosyn and acute CHF exacerbation. Per daughter, pt deteriorates rapidly. This AM , ppatient is more awake and alert and conversive and we discussed her clinical course. Described to her in detail ischemic infarctthat was found on imaging. Informed her importance of tight blood pressure control andsecondary prevention of CVA. She is on aspirin for small vessel disease along with Xarelto to prevent cardioembolic secondary to atrial fibrillation. Active Medications Acetaminophen (Ofirmev Injection -) 1,000 mg IVPB Q6H PRN PRN Reason: FEVER Last Admin: 02/15/19 16:16 Dose: 1,000 mg Albuterol Sulfate (Ventolin Hfa Inhaler -) 2 puff IH Q6H PRN PRN Reason: SHORT OF BREATH/WHEEZING Amlodipine Besylate (Norvasc -) 10 mg PO DAILY [facility] Last Admin: 02/15/19 13:08 Dose: 10 mg Aspirin (Ecotrin -) 81 mg PO DAILY [facility] Last Admin: 02/15/19 09:21 Dose: 81 mg Atorvastatin Calcium (Lipitor -) 40 mg PO HS [facility] Last Admin: 02/15/19 22:27 Dose: 40 mg Ferrous Sulfate (Feosol -) 325 mg PO BID [facility] Last Admin: 02/15/19 22:27 Dose: 325 mg Furosemide (Lasix -) 40 mg PO DAILY [facility] Last Admin: 02/15/19 09:20 Dose: 40 mg Nitroglycerin/Dextrose (Nitroglycerin 25mg/D5w 250ml) 25 mg in 250 mls @ 6 mls/ hr IVPB TITR [facility] Last Admin: 02/15/19 17:13 Dose: Not Given Piperacillin Sod/Tazobactam (Sod 3.375 gm/ Dextrose) 50 mls @ 100 mls/hr IVPB Q8H-IV [facility]; Protocol Last Admin: 02/16/19 01:02 Dose: 100 mls/hr Lactated Ringer's (Lactated Ringers Solution) 1,000 ml in 1,000 mls @ 75 mls/ hr IV ASDIR [facility] Last Admin: 02/16/19 04:04 Dose: 75 mls/hr Insulin Aspart (Novolog Vial Sliding Scale -) 1 vial SQ ACHS [facility]; Protocol Last Admin: 02/16/19 06:16 Dose: Not Given Ipratropium [place] (Atrovent 0.02% Nebulizer -) 1 amp NEB RQID [facility] Last Admin: 02/16/19 07:40 Dose: 1 amp Lactobacillus Acidophilus (Bacid -) 1 tab PO DAILY [facility] Last Admin: 02/15/19 09:20 Dose: 1 tab Levothyroxine Sodium (Synthroid -) 125 mcg PO DAILY@0700 [facility] Last Admin: 02/16/19 06:15 Dose: 125 mcg Metoprolol Succinate (Toprol Xl -) 100 mg PO DAILY [facility] Last Admin: 02/15/19 09:21 Dose: 100 mg Rivaroxaban (Xarelto) 20 mg PO HS [facility] Last Admin: 02/15/19 22:27 Dose: 20 mg Physical Examination Vital Signs: Vital Signs Period Temp Pulse Resp BP Sys/Ray Pulse Ox Last 24 Hr 98.2 F-101.5 F 71-95 18-28 85-136/47-84 94-99 Constitutional: Yes: Moderate Distress, Obese HENT: Yes: Other (bipap). No: Atraumatic (Forehead with laceration/bruise about 5cm, freash, not actively bleeding with swelling) Cardiovascular: Yes: Tachycardia, S1, S2. No: Murmur Respiratory: Yes: Wheezes Gastrointestinal: Yes: Tenderness (suprAPUBIC) Renal/: Yes: Incontinence Musculoskeletal: Yes: Joint Swelling (b/L KNEE SWELLING) Edema: LLE: 1+, RLE: 1+ Integumentary: Yes: Venous Stasis Changes Neurological: Somnolent but arousable, cranial nerves appear intact, moves all extremities equally, sensory intact, finger to nose normal Psychiatric: Yes: Alert, Oriented Labs: CBCD WBC 12.6 K/mm3 (4.0-10.0) H 02/16/19 06:00 RBC 3.49 M/mm3 (3.60-5.2) L 02/16/19 06:00 Hgb 10.4 GM/dL (10.7-15.3) L 02/16/19 06:00 Hct 32.2 % (32.4-45.2) L 02/16/19 06:00 MCV 92.4 fl (80-96) 02/16/19 06:00 MCHC 32.3 g/dl (32.0-36.0) 02/16/19 06:00 RDW 17.0 % (11.6-15.6) H 02/16/19 06:00 Plt Count 133 K/MM3 (134-434) L 02/16/19 06:00 MPV 10.2 fl (7.5-11.1) 02/16/19 06:00 CMP Sodium 138 mmol/L (136-145) 02/16/19 06:00 Potassium 3.4 mmol/L (3.5-5.1) L 02/16/19 06:00 Chloride 102 mmol/L (98-107) 02/16/19 06:00 Carbon Dioxide 31 mmol/L (21-32) 02/16/19 06:00 Anion Gap 6 MMOL/L (8-16) L 02/16/19 06:00 BUN 24.8 mg/dL (7-18) H 02/16/19 06:00 Creatinine 1.4 mg/dL (0.55-1.3) H 02/16/19 06:00 Random Glucose 85 mg/dL (74-106) 02/16/19 06:00 Calcium 8.2 mg/dL (8.5-10.1) L 02/16/19 06:00 Total Bilirubin 0.7 mg/dL (0.2-1) 02/16/19 06:00 AST 21 U/L (15-37) 02/16/19 06:00 ALT 24 U/L (13-61) 02/16/19 06:00 Alkaline Phosphatase 58 U/L (45-117) 02/16/19 06:00 Total Protein 6.4 g/dl (6.4-8.2) 02/16/19 06:00 Albumin 2.5 g/dl (3.4-5.0) L 02/16/19 06:00 CARDIAC ENZYMES Creatine Kinase 128 U/L (26-192) 02/14/19 16:34 Troponin I < 0.02 ng/ml (0.00-0.05) 02/14/19 16:34 Assessment/Plan Pt is a 73 yo F with PMHx of CHF (lasix 40 bid), Afib on xarelto, CAD with cardiac cath (no stents), b/l chronic venous stasis, hypothyroidism, DM, urinary incontinence, BIBA for altered mental status, after she was found on the floor by the daughter. Per daughter, patient's last known well was around 10 :30am prior to admission, when she was using her nebulizer treatment. Around 2: 30 PM when the daughter returned, she found the pt on the floor covered in urine and feces and naked from waist down. Pt was reported to be confused and oriented to only self. Pt was also noted to have a temp of 103, tachycardia and elevated BP to 180s (daughter is a PT). Initially on arrival in ED, pt was febrile to 104, still confused with BP up to 180s/120, with tachypnea to 130s and tachycardia. Pt was placed on Bipap and a nitrodrip was started. CT head and spine was done pt noted to have subacute basal ganglia lacunar infarcts in ED but was noted to be out of TPA window. Official report pending for head CT, spine, cervical, and lumber CT. Carotid doppler completed, mild intimal thickening at the common carotid bifurcation bilaterally without significant stenosis. She described falling on her urine and hitting her forehead against a hard surface, then passing out for an unknown period of time. She denies seizures, or chest pain before or during the fall. She also denied fever and diarrhea. She acknowledges urinary incontinence and suprapubic pain. Per pt's daughter, pt is non compliant at baseline intermittently takes the lasix prescribed (40bid, 40mg daily in chart), does not check BP, do daily weights or comply with salt restricted diet. Per pulm last visit, did not think she had COPD, rather possible PATRICIA. Pt yet to get the sleep study done. PT BUN/Cr, trending up, currently 21/0.6, WBC trending up, elevated 22.2. Lactic acid elevated on admission at 2.2, decreased to 1.5. Pt LDL 97. Pt started on statin 40mg daily, aspirin 81mg daily, and xarelto daily. Brain MRI ordered, not yet completed. continue medical optimization, stroke management. No longer in window for permissive hypertension, maintain blood pressure less than 140/ 90 for now, prefer < 130/80 as basal ganglia infarct possibly due to hypertension and small vessel disease. Informed her importance of tight blood pressure control andsecondary prevention of CVA. She is on aspirin for small vessel disease along with Xarelto to prevent cardioembolic secondary to atrial fibrillation. Physical therapy as tolerated, fall precautions. Medication compliance extremely important and discussed with patient.
[2019-02-16] MEDS: FERROUS SO4 325 MG TABLET (FP) PO SCH ×2 (09:31→21:06)
[2019-02-16] MEDS: ASPIRIN COATED 81 MG TABLET.EC PO SCH (09:31)
[2019-02-16] MEDS: amLODIPine BESYLATE 10 MG TABLET (FP) PO SCH (09:32)
[2019-02-16] MEDS: LACTOBACILLUS ACIDOPHILUS 1 TABLET PO SCH (09:32)
[2019-02-16 09:52] LABS: EPI CELLS 3.9 /HPF (0-5/HPF); HYALINE CASTS 15 /lpf (0-8); URINE APPEARANCE CLOUDY; URINE BACTERIA 4.3 /hpf (NEGATIVE); URINE BILIRUBIN NEGATIVE (NEGATIVE); URINE COLOR YELLOW; URINE GLUCOSE (UA) NEGATIVE (NEGATIVE); URINE KETONE NEGATIVE (NEGATIVE); URINE LEUK ESTERASE NEGATIVE (NEGATIVE); URINE NITRITE NEGATIVE (NEGATIVE); URINE PROTEIN 1+ (NEGATIVE); URINE RBC 1 /hpf (0-4); URINE WBC 2 /hpf (0-5)
[2019-02-16] MEDS ORDERED: SPIRONOLACTONE 25 MG TABLET (FP) PO SCH (10:00)
--- NOTE | 2019-02-16 10:26 | PN ---
Progress Note, Physician History of Present Illness: 73-year-old aaliyah pop with past medical history of mildly reduced systolic LVEF/diastoic CHF on 40 mg of Lasix BID, lisinopril, spironolactone,, atrial fibrillation on Xarelto, CAD, bilateral chronic venous stasis (s/p vascular procedures by Dr. Dario Ramirez), hypothyroidism, diabetes, urinary incontinence, morbid obesity,. Presents to the emergency department after being found down by her daughter. Patient's daughter reports that she left home at 10:30 AM this morning, only to return to find her mother on the ground at 2:30 PM. Patient was awake but lethargic. The patient's daughter reports that she often skips her medications, most frequently Lasix as she does not want to go to the bathroom. In addition, the patient's daughter also reports frequent dietary indiscretion and that patient eats [employer] frequently. Pt says she was getting ready to go to work in the morning. SHe had come out of the bathroom and was seated in a chair to get dressed. When she got up, she fell forward, remembers hitting her head, but nothing afterward until her daughter found her a few hours later. She denies prior hx of syncope. Pt was noted to have a temperature of 104R in the ER, with warm, erythematous RLE. - Current Medication List Current Medications: Active Medications Acetaminophen (Ofirmev Injection -) 1,000 mg IVPB Q6H PRN PRN Reason: FEVER Last Admin: 02/15/19 16:16 Dose: 1,000 mg Albuterol Sulfate (Ventolin Hfa Inhaler -) 2 puff IH Q6H PRN PRN Reason: SHORT OF BREATH/WHEEZING Amlodipine Besylate (Norvasc -) 10 mg PO DAILY [facility] Last Admin: 02/16/19 09:32 Dose: 10 mg Aspirin (Ecotrin -) 81 mg PO DAILY [facility] Last Admin: 02/16/19 09:31 Dose: 81 mg Atorvastatin Calcium (Lipitor -) 40 mg PO HS [facility] Last Admin: 02/15/19 22:27 Dose: 40 mg Ferrous Sulfate (Feosol -) 325 mg PO BID [facility] Last Admin: 02/16/19 09:31 Dose: 325 mg Furosemide (Lasix -) 40 mg PO DAILY [facility] Last Admin: 02/15/19 09:20 Dose: 40 mg Nitroglycerin/Dextrose (Nitroglycerin 25mg/D5w 250ml) 25 mg in 250 mls @ 6 mls/ hr IVPB TITR [facility] Last Admin: 02/15/19 17:13 Dose: Not Given Piperacillin Sod/Tazobactam (Sod 3.375 gm/ Dextrose) 50 mls @ 100 mls/hr IVPB Q8H-IV [facility]; Protocol Last Admin: 02/16/19 09:36 Dose: 100 mls/hr Lactated Ringer's (Lactated Ringers Solution) 1,000 ml in 1,000 mls @ 75 mls/ hr IV ASDIR [facility] Last Admin: 02/16/19 04:04 Dose: 75 mls/hr Insulin Aspart (Novolog Vial Sliding Scale -) 1 vial SQ ACHS [facility]; Protocol Last Admin: 02/16/19 06:16 Dose: Not Given Ipratropium [place] (Atrovent 0.02% Nebulizer -) 1 amp NEB RQID [facility] Last Admin: 02/16/19 07:40 Dose: 1 amp Lactobacillus Acidophilus (Bacid -) 1 tab PO DAILY [facility] Last Admin: 02/16/19 09:32 Dose: 1 tab Levothyroxine Sodium (Synthroid -) 125 mcg PO DAILY@0700 [facility] Last Admin: 02/16/19 06:15 Dose: 125 mcg Metoprolol Succinate (Toprol Xl -) 100 mg PO DAILY [facility] Last Admin: 02/16/19 09:32 Dose: 100 mg Rivaroxaban (Xarelto) 20 mg PO HS [facility] Last Admin: 02/15/19 22:27 Dose: 20 mg - Objective Vital Signs: Vital Signs Temperature 98.9 F 02/16/19 09:40 Pulse Rate 80 02/16/19 09:40 Respiratory Rate 18 02/16/19 09:40 Blood Pressure 104/60 02/16/19 09:40 O2 Sat by Pulse Oximetry (%) 98 02/16/19 08:42 Eyes: Yes: WNL, Conjunctiva Clear, EOM Intact HENT: Yes: WNL, Atraumatic, Normocephalic Neck: Yes: WNL, Supple, Trachea Midline Cardiovascular: Yes: WNL, Regular Rate and Rhythm Respiratory: Yes: WNL, Regular, CTA Bilaterally Gastrointestinal: Yes: WNL, Normal Bowel Sounds Genitourinary: Yes: WNL Musculoskeletal: Yes: WNL Extremities: Yes: WNL Edema: Yes Integumentary: Yes: WNL ...Motor Strength: WNL Psychiatric: Yes: WNL Labs: CBC, BMP 02/16/19 06:00 02/16/19 06:00 INR, PTT INR 1.79 (0.83-1.09) H 02/14/19 16:34 Assessment/Plan - Problems (1) CVA (cerebral vascular accident) Assessment/Plan: f/u head imaging Pt has been on rivaroxaban for AF anticoagulation. Code(s): I63.9 - CEREBRAL INFARCTION, UNSPECIFIED (2) Hyperlipidemia Code(s): E78.5 - HYPERLIPIDEMIA, UNSPECIFIED (3) Sepsis Assessment/Plan: Cellulitis of right LE; ? UTI. On antibiotics per ID. Mild increase in CR-->lisinopril and spironolactone held. (Continue metoprolol ER and amlodipine for HTN, and consider hydralazine + nitrate for systolic CHF and HTN). Sepsis with high fever-->IVF (mild congestion on CXR; no JVD or dyspnea; f/u BUn /Cr, electrolytes, daily weight, Is and Os, clinical response). Code(s): A41.9 - SEPSIS, UNSPECIFIED ORGANISM Qualifiers: Sepsis type: sepsis due to unspecified organism Sepsis acute organ dysfunction status: with acute organ dysfunction Severe sepsis acute organ dysfunction type: acute respiratory failure Acute respiratory failure type: unspecified Severe sepsis shock status: without septic shock Qualified Code( s): A41.9 - Sepsis, unspecified organism; R65.20 - Severe sepsis without septic shock; J96.00 - Acute respiratory failure, unspecified whether with hypoxia or hypercapnia (4) Syncope Code(s): R55 - SYNCOPE AND COLLAPSE (5) UTI (urinary tract infection) Code(s): N39.0 - URINARY TRACT INFECTION, SITE NOT SPECIFIED Qualifiers: Urinary tract infection type: site unspecified Hematuria presence: without hematuria Qualified Code(s): N39.0 - Urinary tract infection, site not specified (6) Acute on chronic systolic and diastolic heart failure, NYHA class 2 Assessment/Plan: see under "Sepsis". Code(s): I50.43 - ACUTE ON CHRONIC COMBINED SYSTOLIC AND DIASTOLIC HRT FAIL (7) Afib Assessment/Plan: On metoprolol ER for HR control. On rivaroxaban for anticoagulation (f/u head imaging after pt's fall-->? hitting forehead). Code(s): I48.91 - UNSPECIFIED ATRIAL FIBRILLATION Qualifiers: Atrial fibrillation type: other persistent Qualified Code(s): I48.19 - Other persistent atrial fibrillation (8) Cellulitis Code(s): L03.90 - CELLULITIS, UNSPECIFIED Qualifiers: Site of cellulitis: extremity Site of cellulitis of extremity: lower extremity Laterality: left Qualified Code(s): L03.116 - Cellulitis of left lower limb (9) Morbid obesity Code(s): E66.01 - MORBID (SEVERE) OBESITY DUE TO EXCESS CALORIES (10) HTN (hypertension) Code(s): I10 - ESSENTIAL (PRIMARY) HYPERTENSION Qualifiers: Hypertension type: essential hypertension Qualified Code(s): I10 - Essential (primary) hypertension (11) Hypothyroid Code(s): E03.9 - HYPOTHYROIDISM, UNSPECIFIED Qualifiers: Hypothyroidism type: unspecified Qualified Code(s): E03.9 - Hypothyroidism , unspecified (12) Lymphedema of both lower extremities Code(s): I89.0 - LYMPHEDEMA, NOT ELSEWHERE CLASSIFIED
--- NOTE | 2019-02-16 10:39 | CONSULT ---
Admitting History and Physical - Primary Care Physician PCP: Killian Baer - Admission History of Present Illness: 73 year old female with pmhx of chf, a-fib, cad, hypothyridism, dm, and urine incontinence who was found on the floor by her daughter, with altered mental status. Pt was febrile,tachycardic,hypertensive. Selected Entries 02/14/19 02/14/19 02/14/19 16:21 16:45 19:01 Lunch Temperature 104.4 F H 104.0 F H 103.8 F H 02/15/19 02/15/19 02/15/19 02:39 04:12 07:37 Lunch Temperature 99.9 F H 100.1 F H 102 F H 02/15/19 02/15/19 02/15/19 10:00 13:39 14:00 Lunch 100% Temperature 98.3 F 101.5 F H 02/15/19 02/15/19 02/16/19 18:00 22:00 02:00 Lunch Temperature 99.2 F 98.6 F 98.2 F 02/16/19 02/16/19 06:00 09:40 Lunch 100% Temperature 98.4 F 98.9 F Laboratory Tests 02/14/19 02/15/19 02/16/19 16:34 06:07 06:00 WBC 21.4 H 22.2 H 12.6 H Sepsis-Cellulitis of right LE; ? UTI. On antibiotics per ID. 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 Pt's daughter reports pt has had recurrent sepsis and she feels cognitively she has "gotten worse each time" with memory deficits and telling stories that haven 't happpened. She misconstrues events or what is told to her. For example, I was with her when her daughter said her swallowing was fine, and told me about doing well at [facility]. When her daughter left, she said "My daughter wants me to have a swallowing tell. I dont know why. But I'm fine." Daughter reports that she sounds like a good historian but often the info she gives is not factual. This is my first consult with this pt. History Source: Patient, Family Member, Medical Record Limitations to Obtaining History: Clinical Condition - Past Medical History Cardiovascular: Yes: AFIB, CHF (mild systolic LV dysfunction; + diastolic dysfunction), HTN Pulmonary: Yes: Other (possible Sleep Apnea ) Renal/: Yes: Renal Inusuff ...: No Heme/Onc: No: Anemia Psych: Yes: Other Musculoskeletal: Yes: Chronic low back pain Endocrine: Yes: Hypothyroidism Dermatology: Yes: Cellulitis - Past Surgical History Past Surgical History: Yes: (About 26 years ago), Hysterectomy, Vein Stripping/Ligation (LE vascular procedures) - Smoking History Smoking history: Former smoker (Smoked from 14 years to 33 years) Have you smoked in the past 12 months: No If you are a former smoker, when did you quit?: 40 yrs ago - Alcohol/Substance Use Hx Alcohol Use: No History of Substance Use: reports: None - Social History Usual Living Arrangement: Yes: With Child ADL: Independent 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 Would benefit from further w/u) Attention: Intact Ability to Follow Directions: Good Head/Neck Control: WFL - Hearing Hearing: Impaired (possibly, reported by daughter. Would benefit from audiological assessment as out pt.) Hearing Aide: No Speech Evaluation - Communication Primary Language: DIVEHI Communication: Yes: Within Normal Limits Oral Expression Ability: Yes: No Impairment - Speech Production Able to Make Needs Known: Yes: WNL Intelligibility: Yes: WNL - Speech Characteristics Voice Loudness: Normal Voice Pitch: Yes: Normal Voice Phonatory-based Quality: Yes: Normal Speech Pattern: Normal Speech Clarity: < 100% Nasal Resonance: Normal Articulation: Yes: Precise Rate of Speech: Intact - Language/Auditory Comprehension Follows: Yes: 2 Stage Simple Commands Observation: Able to respond to yes/no queries: Yes, Yes/No Confusion: No, Comprehends Conversational Speech: Yes, Benefits from Repetiton: Yes - Language/Verbal Expression Able to Respond to Simple Queries: Yes: WNL Able to Communicate Wants and Needs: Yes: WNL Functional Communication Status: Yes: WNL - Swallow Evaluation/Bedside Assessment Current Nutritional Intake: Regular, Thin Liquids Oral Secretions: Yes: WFL Dentition: Yes: Adequate Facial Symmetry at Rest: Symmetrical Facial Symmetry on Retraction: Symmetrical Against Resistance Opening: Normal Against Resistance Closing: Normal Pucker Lips: Normal Smile: Normal Lingual Movement: Normal, Symmetric Lingual Speed of Movement: Normal Lingual Movement Strgth Against Opposition: Normal Lingual Movement Characteristics: Normal Velopharyngeal Movement: Normal Laryngeal Elevation: WFL Laryngeal Movement: Able to Palpate Rate of Intake: WFL Bolus Size: WFL Labial Seal: Impaired Right Chewing: WFL Oral Prep Time: WFL A-P Transit: WFL Pocketing: None Timing of Swallow: WFL Coughing/Throat Clear: No Change in Voice: No Recommendations - Speech Evaluation, Impression/Plan Impression: Language/Speech production/swallowing intact. Needs further auditory processing/memory/cognitive assessment. Audiological assessment as out pt. - Dysphagia Impressions/Plan Swallowing Skills: WF Dysphagia Impressions: No Impairment *Silent aspiration: cannot be R/O at bedside Recommendations: Other (May benefit from audiological/cognitive assessment as out pt at [place]) - Recommendations Diet Consistency: Regular Medication Administration: Whole with water Liquids: Thin Liquids
[2019-02-16] MEDS ORDERED: LACTATED RINGERS SOLUTION 1,000 ML/1,000 ML INFUS.BAG IV SCH (10:43)
--- NOTE | 2019-02-16 11:36 | PN ---
Progress Note (short form) - Note Progress Note: Hospitalist Medicine Resting in bed, daughter at bedside. States she is doing well. Vitals 02/16/19 09:40 Temperature 98.9 F Pulse Rate 80 Respiratory 18 Rate Blood Pressure 104/60 Physical Exam general: resting in bed, in NAD HEENT: NCAT, PERRLA neck: supple cardio: irreg irreg. no r/m/g. pulm: +wheezes b/l. no crackles abdomen: obese, non distended. mild suprapubic tenderness LE: 1+ pitting edema b/l. +chronic venous changes. +RLE erythema Laboratory Tests 02/16/19 02/16/19 02/16/19 06:00 06:00 06:00 WBC 12.6 H Hgb 10.4 L Hct 32.2 L Plt Count 133 L Sodium 138 Potassium 3.4 L Chloride 102 Carbon Dioxide 31 BUN 24.8 H Creatinine 1.4 H Random Glucose 85 Urine Blood 2+ H Urine WBC (Auto) 2 Urine RBC (Auto) 1 Urine Casts (Auto) 15 U Epithel Cells (Auto) 3.9 Urine Bacteria (Auto) 4.3 Microbiology 02/14/19 17:14 Urine - Urine Clean Catch Urine Culture - Preliminary Lactose Fermenting Neg Bacilli Group D Strep Or Entero Coccus 02/14/19 16:34 Blood - Peripheral Venous Blood Culture - Preliminary NO GROWTH OBTAINED AFTER 24 HOURS, INCUBATION TO CONTINUE FOR 4 DAYS. 02/14/19 16:34 Blood - Peripheral Venous Blood Culture - Preliminary NO GROWTH OBTAINED AFTER 24 HOURS, INCUBlarATION TO CONTINUE FOR 4 DAYS. Imaging 02/14/19: CXR: large heart, congestive changes 02/14/19: CT t-spine, CT c-spine 02/14/19: CT head: moderate vol loss, ventricular dilation, moderate chronic microvascular ischemic changes. no mass lesion, gross acute infarct or intracranial hemorrhage are identified. no fracture or subluxation are identified. intervertebral disc spaces are intact. no compression fx 02/15/19: Renal sono: 2 right exophytic simple cysts with largest measuring 4.7x3.8cm. both kidneys are unremarkable no stones or hydro. 02/15/19: carotid doppler: mild intimal thickening at the common carotid bifurcation, bilaterally w/o evidence of hemodynamically sig stenosis bilaterally 02/16/19: CXR: congestive changes have diminished slightly since previous exam 02/16/19 MRI brain w/o contrast: no evidence of acute or subacute infarction. brainstem gliosis. supratentorial chronic white matter microangiopathic ischemic changes. chronic L basal ganglia infarct. Assessment/Plan 73 y/o F with systolic CHF, CAD, afib on xarelto, hypothyroidism, and chronic venous stasis dermatitis and swelling presents who presented with severe sepsis , hypertensive emergency, and subacute stroke. #Severe sepsis 2/2 UTI, vs. LE cellulitis -c/w zosyn (02/15) -lactic acidosis resolved -UA (+), also w/ erythema LE, chronic changes -off IVF -ID on board: Dr. Escoto #R/o CVA -initial Head CT report showed subtle hypodensity in left basal ganglia concern for a subacute lacunar infarct -brain MRI noted above ; no acute infarct -c/w asa, statin - atorva 40mg -passed s/s -neuro consulted: Dr. Blevins -maintain controlled BP < 130/80 -PT #Acute renal failure -pre-renal; FEna 0.1%, however can also calc FEurea as was on diuretics prev -more likely 2/2 sepsis, could have been cardiorenal, but not in overload now -Hold lisinopril, spironolactone, aldactone for now -f/u urine lytes, creat -renal sono: without evidence of acute dz, renal cysts -off IVF -nephro consult: Dr. Onofre #hypertensive emergency with end organ damage (GEMMA and stroke) -has resolved; goal BP < 130/80 -c/w amlodipine -d/c lisinopril, spironolactone, and lasix for now #Afib -rate controlled -c/w metoprolol -on xarelto #hx COPD -nebs PRN -not in exacerbation #CHF-systolic function, mildly reduced -off IVF -have held lisinopril, spirinolactone, lasix -Cardio: Dr. Burleson #CAD -c/w high intensity statin aspirin and BB #Hyperglycemia likely secondary to stress/infection -not a diabetic-HbA1C 5.5% done earlier this month -ISS, BGM ACHS #Chronic Venous stasis dermatitis and edema -vasc consulted: Dr. Ramirez -without acute change -will need outpt f/u #Hypothyroidism -C/w synthroid -TSH WNL #F/E/N off IVF, avoid overload continue to follow lytes na controlled diet #PPX DVT: on xarelto #Dispo monitoring on tele will need f/u with Dr. Ramirez as outpatient <Leigh Caceres - Last Filed: 02/16/19 16:03> - Note Progress Note: Seen and examined; please refer to resident note for further historical information. I agree with the aforementioned assessment and plan and historical information aside from as supplemented by myself. Independently verified all johns exam findings and diagnostics. I discussed the case at length with the resident and agree with the plan as outlined. Agree with above subjective information 10 sys ROS done and negative aside from HPI VS, labs, imaging reviewed NAD AAO resting in bed; on O2. Mentation improved, not lethargic, some minor confusion regarding date. NC AT EOMI PERRLA HR wnl, s1/2+; chronic dependent edema in apparent NSR NT ND +BS CN2-12 wnl, no fnd Normal mood, appropriate behavior Assessment and plan: PMH of CHF, CAD, atrial fib, HTN, COPD, hypothyroidism, chronic venous stasis presenting with likely toxic metabolic encephalopathy secondary to UTI. She is on broad spectrum abx with ID following and underlying CVA is being ruled out with negative studies thus far and neurology following. Continuing on PO antibiotics and monitoring on telemetry. BP is improved with Afib having continued rate control. Continuing home meds as clinically indicated with lasix and aldactone to be resumed when stable to tolerate. She is on Atrovent for COPD and has no increased O2 requirements and her chronic anemia appreciated on prior visits remains stable and we will trend her CBC. Overall we must: -Verify that this is likely chronic BG infarct, not an acute issue -Continue to monitor BP; consider hypertensive encephalopathy as an underlying potential contributor to the toxic metabolic encephalopathy -Can DC neuro checks and seizure precautions if OK with neuro -Followup cultures and sensativities for Ucx/Bcx and determine final course of abx; ID consult indicated per hospital policy. Discussed with service and appreciate expert opinion -Followup with subspecialty consults to discuss discharge plan and followup Her probelms include: -AMS 2/2 Toxic metabolic encephalopathy vs. less likely stroke (considering UTI +/- HTN encephalopathy) -Sepsis 2/2 UTI secondary to E. coli, VRE UTI -HTN Emergency 2. Chronic left basal ganglia ischemic infarct -GEMMA on CKD (Followup; would be limiting factor in resuming home diuresis but was likely secondary to sepsis given fluid response) -Chronic CAD with no acute symptoms, monitor. No issues on telemetry. ASA, MS , Atorva -Afib with elevated CV2 score, on home Xarelto and rate controlled -Chronic HFrEF with ongoing NYHA I-II symptoms, at baseline, resuming home aldactone and lasix when clinically appropriate. -COPD (Class unknown); continue home meds and FU with pulm as OP for PFTs -Chronic venous stasis with underlying PAD and claudication symptoms; r/o overlying cellulitis contributing to presentation. FU diagnostics and discuss with Dr. Ramirez. -Hx Hypothyroidism; clinically stable and can FU TSH as OP to adjust LT4 dose. -Chronic Anemia, stable; 12/2018 iron studies reviewed. Can go ahead and monitor CBC with respect to guideline-based XF thresholds. -Morbid Obesity (BMI 42; PATRICIA likely contributing to underlying chronic respiratory issues. Can FU per pulmonary medicine) Full Code <Killian Baer - Last Filed: 02/21/19 03:28>
--- NOTE | 2019-02-16 11:38 | PN ---
Progress Note, Physician History of Present Illness: Pt seen and examined at bedside. Her mental status is markedly improved. She denies shortness of breath. - Current Medication List Current Medications: Active Medications Acetaminophen (Ofirmev Injection -) 1,000 mg IVPB Q6H PRN PRN Reason: FEVER Last Admin: 02/15/19 16:16 Dose: 1,000 mg Albuterol Sulfate (Ventolin Hfa Inhaler -) 2 puff IH Q6H PRN PRN Reason: SHORT OF BREATH/WHEEZING Amlodipine Besylate (Norvasc -) 10 mg PO DAILY PENDING SALE TO [facility] Last Admin: 02/16/19 09:32 Dose: 10 mg Aspirin (Ecotrin -) 81 mg PO DAILY ALYSSA Last Admin: 02/16/19 09:31 Dose: 81 mg Atorvastatin Calcium (Lipitor -) 40 mg PO HS PENDING SALE TO [facility] Last Admin: 02/15/19 22:27 Dose: 40 mg Ferrous Sulfate (Feosol -) 325 mg PO BID ALYSSA Last Admin: 02/16/19 09:31 Dose: 325 mg Furosemide (Lasix -) 40 mg PO DAILY ALYSSA Last Admin: 02/15/19 09:20 Dose: 40 mg Nitroglycerin/Dextrose (Nitroglycerin 25mg/D5w 250ml) 25 mg in 250 mls @ 6 mls/ hr IVPB TITR ALYSSA Last Admin: 02/15/19 17:13 Dose: Not Given Piperacillin Sod/Tazobactam (Sod 3.375 gm/ Dextrose) 50 mls @ 100 mls/hr IVPB Q8H-IV ALYSSA; Protocol Last Admin: 02/16/19 09:36 Dose: 100 mls/hr Lactated Ringer's (Lactated Ringers Solution) 1,000 ml in 1,000 mls @ 60 mls/ hr IV ASDIR ALYSSA Insulin Aspart (Novolog Vial Sliding Scale -) 1 vial SQ ACHS PENDING SALE TO [facility]; Protocol Last Admin: 02/16/19 06:16 Dose: Not Given Ipratropium Many (Atrovent 0.02% Nebulizer -) 1 amp NEB RQID PENDING SALE TO [facility] Last Admin: 02/16/19 07:40 Dose: 1 amp Lactobacillus Acidophilus (Bacid -) 1 tab PO DAILY PENDING SALE TO [facility] Last Admin: 02/16/19 09:32 Dose: 1 tab Levothyroxine Sodium (Synthroid -) 125 mcg PO DAILY@0700 PENDING SALE TO [facility] Last Admin: 02/16/19 06:15 Dose: 125 mcg Metoprolol Succinate (Toprol Xl -) 100 mg PO DAILY PENDING SALE TO [facility] Last Admin: 02/16/19 09:32 Dose: 100 mg Rivaroxaban (Xarelto) 20 mg PO HS PENDING SALE TO [facility] Last Admin: 02/15/19 22:27 Dose: 20 mg - Objective Vital Signs: Vital Signs Temperature 98.9 F 02/16/19 09:40 Pulse Rate 80 02/16/19 09:40 Respiratory Rate 18 02/16/19 09:40 Blood Pressure 104/60 02/16/19 09:40 O2 Sat by Pulse Oximetry (%) 98 02/16/19 08:42 Constitutional: Yes: Calm Eyes: Yes: Conjunctiva Clear HENT: Yes: Atraumatic Neck: Yes: Supple Cardiovascular: Yes: S1, S2 Respiratory: Yes: CTA Bilaterally Gastrointestinal: Yes: Soft Genitourinary: Yes: WNL Musculoskeletal: Yes: WNL Edema: Yes Edema: LLE: 2+, RLE: 2+ Integumentary: Yes: Erythema, Venous Stasis Changes Neurological: Yes: Oriented Psychiatric: Yes: Oriented Labs: CBC, BMP 02/16/19 06:00 02/16/19 06:00 INR, PTT INR 1.79 (0.83-1.09) H 02/14/19 16:34 Problem List - Problems (1) Altered mental status Code(s): R41.82 - ALTERED MENTAL STATUS, UNSPECIFIED Qualifiers: Qualified Code(s): R41.0 - Disorientation, unspecified (2) Basal ganglia infarction Code(s): I63.9 - CEREBRAL INFARCTION, UNSPECIFIED (3) CVA (cerebral vascular accident) Code(s): I63.9 - CEREBRAL INFARCTION, UNSPECIFIED (4) Sepsis Code(s): A41.9 - SEPSIS, UNSPECIFIED ORGANISM Qualifiers: Qualified Code(s): A41.9 - Sepsis, unspecified organism; R65.20 - Severe sepsis without septic shock; J96.00 - Acute respiratory failure, unspecified whether with hypoxia or hypercapnia Assessment/Plan Current Medications Generic Name Dose Route Start Last Admin Trade Name Freq PRN Reason Stop Dose Admin Acetaminophen 1,000 mg 02/15/19 05:58 02/15/19 16:16 Ofirmev Injection - IVPB 1,000 mg Q6H PRN Administration FEVER Albuterol Sulfate 2 puff 02/14/19 22:28 Ventolin Hfa Inhaler - IH Q6H PRN SHORT OF BREATH/WHEEZING Amlodipine Besylate 10 mg 02/15/19 11:00 02/16/19 09:32 Norvasc - PO 10 mg DAILY ALYSSA Administration Aspirin 81 mg 02/15/19 10:00 02/16/19 09:31 Ecotrin - PO 81 mg DAILY ALYSSA Administration Atorvastatin Calcium 40 mg 02/15/19 22:00 02/15/19 22:27 Lipitor - PO 40 mg HS ALYSSA Administration Ferrous Sulfate 325 mg 02/15/19 10:00 02/16/19 09:31 Feosol - PO 325 mg BID ALYSSA Administration Furosemide 40 mg 02/15/19 10:00 02/15/19 09:20 Lasix - PO 40 mg DAILY ALYSSA Administration Nitroglycerin/Dextrose 25 mg in 250 mls @ 6 mls/hr 02/14/19 17:00 02/15/19 17 :13 Nitroglycerin 25mg/D5w 250ml IVPB Not Given TITR ALYSSA 10 MCG/MIN Piperacillin Sod/Tazobactam 50 mls @ 100 mls/hr 02/15/19 18:00 02/16/19 09:36 Sod 3.375 gm/ Dextrose IVPB 100 mls/hr Q8H-IV ALYSSA Administration Protocol Lactated Ringer's 1,000 ml in 1,000 mls @ 60 mls/hr 02/16/19 10:43 Lactated Ringers Solution IV ASDIR ALYSSA Insulin Aspart 1 vial 02/15/19 07:00 02/16/19 06:16 Novolog Vial Sliding Scale - SQ Not Given ACHS ALYSSA Protocol Ipratropium Many 1 amp 02/15/19 08:00 02/16/19 07:40 Atrovent 0.02% Nebulizer - NEB 1 amp RQID ALYSSA Administration Lactobacillus Acidophilus 1 tab 02/15/19 10:00 02/16/19 09:32 Bacid - PO 1 tab DAILY ALYSSA Administration Levothyroxine Sodium 125 mcg 02/15/19 07:00 02/16/19 06:15 Synthroid - PO 125 mcg DAILY@0700 ALYSSA Administration Metoprolol Succinate 100 mg 02/14/19 22:28 02/16/19 09:32 Toprol Xl - PO 100 mg DAILY ALYSSA Administration Rivaroxaban 20 mg 02/14/19 22:28 02/15/19 22:27 Xarelto PO 20 mg HS ALYSSA Administration Impression 1. GEMMA 2. sepsis 3. htn 4. cva 5. chf 6. hld 7. renal cysts Plan - replace potassium - renal function improving - renal ultrasound reviewed - cxr reviewed - monitor renal function - can d/c fluids if tolerating po intake today
--- NOTE | 2019-02-16 11:40 | PN ---
Progress Note, Physician History of Present Illness: patient looks better leg rt still angry but better - Current Medication List Current Medications: Active Medications Acetaminophen (Ofirmev Injection -) 1,000 mg IVPB Q6H PRN PRN Reason: FEVER Last Admin: 02/15/19 16:16 Dose: 1,000 mg Albuterol Sulfate (Ventolin Hfa Inhaler -) 2 puff IH Q6H PRN PRN Reason: SHORT OF BREATH/WHEEZING Amlodipine Besylate (Norvasc -) 10 mg PO DAILY COUNT INCLUDES [facility] Last Admin: 02/16/19 09:32 Dose: 10 mg Aspirin (Ecotrin -) 81 mg PO DAILY COUNT INCLUDES THE [facility] Last Admin: 02/16/19 09:31 Dose: 81 mg Atorvastatin Calcium (Lipitor -) 40 mg PO HS COUNT INCLUDES THE [facility] Last Admin: 02/15/19 22:27 Dose: 40 mg Ferrous Sulfate (Feosol -) 325 mg PO BID COUNT INCLUDES THE [facility] Last Admin: 02/16/19 09:31 Dose: 325 mg Furosemide (Lasix -) 40 mg PO DAILY COUNT INCLUDES THE [facility] Last Admin: 02/15/19 09:20 Dose: 40 mg Nitroglycerin/Dextrose (Nitroglycerin 25mg/D5w 250ml) 25 mg in 250 mls @ 6 mls/ hr IVPB TITR COUNT INCLUDES THE [facility] Last Admin: 02/15/19 17:13 Dose: Not Given Piperacillin Sod/Tazobactam (Sod 3.375 gm/ Dextrose) 50 mls @ 100 mls/hr IVPB Q8H-IV ALYSSA; Protocol Last Admin: 02/16/19 09:36 Dose: 100 mls/hr Lactated Ringer's (Lactated Ringers Solution) 1,000 ml in 1,000 mls @ 60 mls/ hr IV ASDIR COUNT INCLUDES THE [facility] Insulin Aspart (Novolog Vial Sliding Scale -) 1 vial SQ ACHS COUNT INCLUDES THE [facility]; Protocol Last Admin: 02/16/19 06:16 Dose: Not Given Ipratropium [place] (Atrovent 0.02% Nebulizer -) 1 amp NEB RQID COUNT INCLUDES THE [facility] Last Admin: 02/16/19 07:40 Dose: 1 amp Lactobacillus Acidophilus (Bacid -) 1 tab PO DAILY COUNT INCLUDES THE [facility] Last Admin: 02/16/19 09:32 Dose: 1 tab Levothyroxine Sodium (Synthroid -) 125 mcg PO DAILY@0700 COUNT INCLUDES THE [facility] Last Admin: 02/16/19 06:15 Dose: 125 mcg Metoprolol Succinate (Toprol Xl -) 100 mg PO DAILY COUNT INCLUDES THE [facility] Last Admin: 02/16/19 09:32 Dose: 100 mg Rivaroxaban (Xarelto) 20 mg PO HS COUNT INCLUDES THE [facility] Last Admin: 02/15/19 22:27 Dose: 20 mg - Objective Vital Signs: Vital Signs Temperature 98.9 F 02/16/19 09:40 Pulse Rate 80 02/16/19 09:40 Respiratory Rate 18 02/16/19 09:40 Blood Pressure 104/60 02/16/19 09:40 O2 Sat by Pulse Oximetry (%) 98 02/16/19 08:42 Constitutional: Yes: No Distress, Calm Cardiovascular: Yes: S1, S2 Respiratory: Yes: Regular, CTA Bilaterally Gastrointestinal: Yes: Normal Bowel Sounds, Soft Musculoskeletal: Yes: WNL Extremities: Yes: Other Neurological: Yes: Alert, Oriented Psychiatric: Yes: Alert, Oriented Labs: CBC, BMP 02/16/19 06:00 02/16/19 06:00 INR, PTT INR 1.79 (0.83-1.09) H 02/14/19 16:34 Assessment/Plan 73F with multiple medical problems including systolic CHF CAD afib on xarelto hypothyroidism and chronic venous stasis dermatitis and swelling presents with severe sepsis, hypertensive emergency, and subacute stroke. Severe sepsis uti Acute metabolic/toxic encephalopathy Lactic acidosis Acute renal failure hypertensive emergency with end organ damage Afib rate controlled continue metoprolol continue xarelto possible CVA CAD continue high intensity statin aspirin and beta saba Hypothyroidism: plan continue current management elevation rest as per the team
--- NOTE | 2019-02-16 11:58 | PN ---
Progress Note (short form) - Note Progress Note: VASCULAR SURGERY 73yo F h/o chronic venous insufficency, pt states that she noticed 2 days ago her Rt leg getting red and hot. Pt states that she has a long history of cellulitis in her legs. Pt is known to Dr. Ramirez in wound care clinic. Last Vital Signs Temp Pulse Resp BP Pulse Ox 98.9 F 80 18 104/60 98 02/16/19 09:40 02/16/19 09:40 02/16/19 09:40 02/16/19 09:40 02/16/19 08:42 CBC, BMP 02/16/19 06:00 02/16/19 06:00 PE: Gen: A&O x3 Resp: breathing comfortably Lower Ext: extensive erythema on RLE, +2 edema, chronic woody changes to legs bilaterally. +2 pedal pulses b/l DX: Cellulitis Plan: -no surgical intervention needed at this time -rec abx as per ID -pt should follow up with Dr. Ramirez in clinic as outpatient. Pt discussed with Dr. Ramirez who agrees with plan
[2019-02-16 14:38] LABS: URINE CRYSTALS PRESENT /hpf; YEAST PRESENT (NEGATIVE)
[2019-02-16] MEDS ORDERED: VANCOMYCIN 1 GM in D5W (PRE-DOCKED) 1,000 MG/250 ML IVPB SCH (17:00)
[2019-02-16] MEDS: ATORVASTATIN CA 40 MG TABLET (FP) PO SCH (21:06)
[2019-02-16] MEDS: RIVAROXABAN 20 MG TABLET PO SCH (21:06)
[2019-02-17] MEDS ORDERED: DEXTROSE 5%-WATER - 50 ML IVPB ONE ×3 (01:07→17:20)
[2019-02-17] MEDS ORDERED: PIPERACILLIN/TAZOBACTAM 3.375 GM VIAL IVPB ONE ×3 (01:07→17:20)
[2019-02-17] MEDS: PIPERACILLIN/TAZOB 3.375 GM 3.375 GM in DEXTROSE 5%-WATER - 50 ML IVPB SCH ×3 (01:31→18:19)
[2019-02-17] MEDS: INSULIN SLIDING SCALE (NOVOLOG) 1 VIAL SQ SCH ×2 (06:19→21:22)
[2019-02-17] MEDS: LEVOTHYROXINE NA 125 MCG TABLET (FP) PO SCH (06:44)
[2019-02-17] MEDS: IPRATROPIUM BR 0.02% 0.5 MG/2.5 ML VIAL.NEB. NEB SCH ×4 (07:25→20:23)
[2019-02-17 07:29] LABS: BASO % 0.4 % (0-2.0); EOS % 1.2 % (0-4.5); HEMATOCRIT 32.1 % (32.4-45.2); HEMOGLOBIN 10.6 GM/dL (10.7-15.3); LYMPH % 13.1 % (8-40); MCH 30.6 pg (25.7-33.7); MCHC 32.9 g/dl (32.0-36.0); NEUT % 77.3 % (42.8-82.8); PLATELET COUNT 148 K/MM3 (134-434); RBC 3.45 M/mm3 (3.60-5.2); RDW 16.9 % (11.6-15.6); WHITE BLOOD COUNT 10.5 K/mm3 (4.0-10.0)
[2019-02-17 07:57] LABS: BLOOD UREA NITROGEN 18.4 mg/dL (7-18); CALCIUM 8.6 mg/dL (8.5-10.1); CREATININE 1.1 mg/dL (0.55-1.3); MAGNESIUM 2.2 mg/dL (1.8-2.4); PHOSPHOROUS 2.4 mg/dL (2.5-4.9); POTASSIUM 3.6 mmol/L (3.5-5.1)
--- NOTE | 2019-02-17 08:43 | PN ---
Progress Note (short form) - Note Progress Note: Neurology - Admission Chief Complaint: AMS x1 day History of Present Illness: 73 yo F with PMHx of CHF (lasix 40 bid), Afib on xarelto, CAD with cardiac cath (no stents), b/l chronic venous stasis, hypothyroidism, DM, urinary incontinence , BIBA for altered mental status, after she was found on the floor by the daughter. Per daughter, patient's last known well was around 10:30am prior to admission, when she was using her nebulizer treatment. Around 2:30 PM when the daughter returned, she found the pt on the floor covered in urine and feces and naked from waist down. Pt was reported to be confused and oriented to only self. Pt was also noted to have a temp of 103, tachycardia and elevated BP to 180s (daughter is a PT). Head CT reports indicate no acute patholgoy (though ER note indicated basal ganglia infarct per radiology, MRI reported below indicates this is chronic), chronic microvascular ischemic changes. CT of thoracic and cervical spine indicate no acute pathology. Carotid doppler completed, mild intimal thickening at the common carotid bifurcation bilaterally without significant stenosis. She described falling on her urine and hitting her forehead against a hard surface, then passing out for an unknown period of time. She denies seizures, or chest pain before or during the fall. She also denied fever and diarrhea. She acknowledges urinary incontinence and suprapubic pain. Per pt's daughter, pt is non compliant at baseline intermittently takes the lasix prescribed (40bid, 40mg daily in chart), does not check BP, do daily weights or comply with salt restricted diet. Per pulm last visit, did not think she had COPD, rather possible PATRICIA. Pt yet to get the sleep study done. PT BUN/Cr improved, WBC improved. Lactic acid elevated on admission at 2.2, decreased to 1.5. Pt LDL 97. Pt started on statin 40mg daily , aspirin 81mg daily, and xarelto daily. Brain MRI completed, with no acute pathology, basal ganglia infarct is chronic. Lower extremity duplex completed, abnormal blood flow right greater than left. Pt negative for DVT. Pt was recently discharged 02/05/19 after being treated for Klebsiella UTI with zosyn and acute CHF exacerbation. Active Medications Acetaminophen (Ofirmev Injection -) 1,000 mg IVPB Q6H PRN PRN Reason: FEVER Last Admin: 02/15/19 16:16 Dose: 1,000 mg Albuterol Sulfate (Ventolin Hfa Inhaler -) 2 puff IH Q6H PRN PRN Reason: SHORT OF BREATH/WHEEZING Amlodipine Besylate (Norvasc -) [address] [facility] Last Admin: 02/16/19 09:32 Dose: 10 mg Aspirin (Ecotrin -) [address] [facility] Last Admin: 02/16/19 09:31 Dose: 81 mg Atorvastatin Calcium (Lipitor -) [address] [facility] Last Admin: 02/16/19 21:06 Dose: 40 mg Ferrous Sulfate (Feosol -) [address] [facility] Last Admin: 02/16/19 21:06 Dose: 325 mg Furosemide (Lasix -) [address] [facility] Last Admin: 02/15/19 09:20 Dose: 40 mg Piperacillin Sod/Tazobactam (Sod 3.375 gm/ Dextrose) 50 mls @ 100 mls/hr IVPB Q8H-IV [facility]; Protocol Last Admin: 02/17/19 01:31 Dose: 100 mls/hr Insulin Aspart (Novolog Vial Sliding Scale -) [address] [facility]; Protocol Last Admin: 02/17/19 06:19 Dose: Not Given Ipratropium [place] (Atrovent 0.02% Nebulizer -) [address] [facility] Last Admin: 02/17/19 07:25 Dose: Not Given Lactobacillus Acidophilus (Bacid -) [address] [facility] Last Admin: 02/16/19 09:32 Dose: 1 tab Levothyroxine Sodium (Synthroid -) 125 mcg PO DAILY@0700 [facility] Last Admin: 02/17/19 06:44 Dose: 125 mcg Metoprolol Succinate (Toprol Xl -) [address] [facility] Last Admin: 02/16/19 09:32 Dose: 100 mg Rivaroxaban (Xarelto) [address] [facility] Last Admin: 02/16/19 21:06 Dose: 20 mg Physical Examination Vital Signs: Vital Signs Period Temp Pulse Resp BP Sys/Ray Pulse Ox Last 24 Hr 98.1 F-98.9 F 79-94 18-28 99-121/51-75 96-98 Constitutional: Yes: Moderate Distress, Obese HENT: Yes: Other (bipap). No: Atraumatic (Forehead with laceration/bruise about 5cm, freash, not actively bleeding with swelling) Cardiovascular: Yes: Tachycardia, S1, S2. No: Murmur Respiratory: Yes: Wheezes Gastrointestinal: Yes: Tenderness (suprAPUBIC) Renal/: Yes: Incontinence Musculoskeletal: Yes: Joint Swelling (b/L KNEE SWELLING) Edema: LLE: 1+, RLE: 1+ Integumentary: Yes: Venous Stasis Changes Neurological: awake, alert, cranial nerves appear intact, moves all extremities equally, sensory intact, finger to nose normal Psychiatric: Yes: Alert, Oriented Labs: CBCD WBC 10.5 K/mm3 (4.0-10.0) H 02/17/19 05:55 RBC 3.45 M/mm3 (3.60-5.2) L 02/17/19 05:55 Hgb 10.6 GM/dL (10.7-15.3) L 02/17/19 05:55 Hct 32.1 % (32.4-45.2) L 02/17/19 05:55 MCV 93.0 fl (80-96) 02/17/19 05:55 MCHC 32.9 g/dl (32.0-36.0) 02/17/19 05:55 RDW 16.9 % (11.6-15.6) H 02/17/19 05:55 Plt Count 148 K/MM3 (134-434) 02/17/19 05:55 MPV 10.0 fl (7.5-11.1) 02/17/19 05:55 CMP Sodium 139 mmol/L (136-145) 02/17/19 05:55 Potassium 3.6 mmol/L (3.5-5.1) 02/17/19 05:55 Chloride 103 mmol/L (98-107) 02/17/19 05:55 Carbon Dioxide 29 mmol/L (21-32) 02/17/19 05:55 Anion Gap 7 MMOL/L (8-16) L 02/17/19 05:55 BUN 18.4 mg/dL (7-18) H 02/17/19 05:55 Creatinine 1.1 mg/dL (0.55-1.3) 02/17/19 05:55 Random Glucose 85 mg/dL (74-106) 02/17/19 05:55 Calcium 8.6 mg/dL (8.5-10.1) 02/17/19 05:55 Total Bilirubin 0.7 mg/dL (0.2-1) 02/16/19 06:00 AST 21 U/L (15-37) 02/16/19 06:00 ALT 24 U/L (13-61) 02/16/19 06:00 Alkaline Phosphatase 58 U/L (45-117) 02/16/19 06:00 Total Protein 6.4 g/dl (6.4-8.2) 02/16/19 06:00 Albumin 2.5 g/dl (3.4-5.0) L 02/16/19 06:00 CARDIAC ENZYMES Creatine Kinase 128 U/L (26-192) 02/14/19 16:34 Troponin I < 0.02 ng/ml (0.00-0.05) 02/14/19 16:34 Assessment/Plan 73 yo F with PMHx of CHF (lasix 40 bid), Afib on xarelto, CAD with cardiac cath (no stents), b/l chronic venous stasis, hypothyroidism, DM, urinary incontinence , BIBA for altered mental status, after she was found on the floor by the daughter. Per daughter, patient's last known well was around 10:30am prior to admission, when she was using her nebulizer treatment. Around 2:30 PM when the daughter returned, she found the pt on the floor covered in urine and feces and naked from waist down. Pt was reported to be confused and oriented to only self. Pt was also noted to have a temp of 103, tachycardia and elevated BP to 180s (daughter is a PT). Head CT reports indicate no acute patholgoy (though ER note indicated basal ganglia infarct per radiology, MRI reported below indicates this is chronic), chronic microvascular ischemic changes. CT of thoracic and cervical spine indicate no acute pathology. Carotid doppler completed, mild intimal thickening at the common carotid bifurcation bilaterally without significant stenosis. She described falling on her urine and hitting her forehead against a hard surface, then passing out for an unknown period of time. She denies seizures, or chest pain before or during the fall. She also denied fever and diarrhea. She acknowledges urinary incontinence and suprapubic pain. Per pt's daughter, pt is non compliant at baseline intermittently takes the lasix prescribed (40bid, 40mg daily in chart), does not check BP, do daily weights or comply with salt restricted diet. Per pulm last visit, did not think she had COPD, rather possible PATRICIA. Pt yet to get the sleep study done. PT BUN/Cr improved, WBC improved. Lactic acid elevated on admission at 2.2, decreased to 1.5. Pt LDL 97. Pt started on statin 40mg daily , aspirin 81mg daily, and xarelto daily. Brain MRI completed, with no acute pathology, basal ganglia infarct is chronic. Lower extremity duplex completed, abnormal blood flow right greater than left. Pt negative for DVT. Pt was recently discharged 02/05/19 after being treated for Klebsiella UTI with zosyn and acute CHF exacerbation. Maintain blood pressure less than 140/90 for now, prefer < 130/80 as outpatient. Informed her importance of tight blood pressure control andsecondary prevention of CVA. She is on aspirin for small vessel disease along with Xarelto to prevent cardioembolic secondary to atrial fibrillation. Physical therapy as tolerated, fall precautions. Medication compliance extremely important and discussed with patient.
[2019-02-17] MEDS: LACTOBACILLUS ACIDOPHILUS 1 TABLET PO SCH (09:38)
[2019-02-17] MEDS: ASPIRIN COATED 81 MG TABLET.EC PO SCH (09:38)
[2019-02-17] MEDS: FERROUS SO4 325 MG TABLET (FP) PO SCH ×2 (09:38→21:22)
[2019-02-17] MEDS: amLODIPine BESYLATE 10 MG TABLET (FP) PO SCH (10:02)
--- NOTE | 2019-02-17 11:28 | PN ---
Progress Note (short form) - Note Progress Note: Hospitalist Medicine Resting, OOB in chair. Very sleepy this AM. Without complaint Vitals 02/17/19 06:00 Temperature 98.2 F Pulse Rate 94 H Respiratory 28 H Rate Blood Pressure 121/60 Physical Exam general: resting in bed, in NAD HEENT: NCAT, PERRLA neck: supple cardio: irreg irreg. no r/m/g. pulm: CTA b/l. no crackles abdomen: obese, non distended. mild suprapubic tenderness LE: 1+ pitting edema b/l. +chronic venous changes. +RLE erythema Laboratory Tests 02/17/19 02/17/19 05:55 05:55 WBC 10.5 H Hgb 10.6 L Hct 32.1 L Plt Count 148 Sodium 139 Potassium 3.6 Chloride 103 Carbon Dioxide 29 BUN 18.4 H Creatinine 1.1 Random Glucose 85 Microbiology 02/14/19 17:14 Urine - Urine Clean Catch Urine Culture - Preliminary Escherichia Coli Group D Strep Or Entero Coccus 02/14/19 16:34 Blood - Peripheral Venous Blood Culture - Preliminary NO GROWTH OBTAINED AFTER 48 HOURS, INCUBATION TO CONTINUE FOR 3 DAYS. 02/14/19 16:34 Blood - Peripheral Venous Blood Culture - Preliminary NO GROWTH OBTAINED AFTER 48 HOURS, INCUBATION TO CONTINUE FOR 3 DAYS. Imaging 02/14/19: CXR: large heart, congestive changes 02/14/19: CT t-spine, CT c-spine 02/14/19: CT head: moderate vol loss, ventricular dilation, moderate chronic microvascular ischemic changes. no mass lesion, gross acute infarct or intracranial hemorrhage are identified. no fracture or subluxation are identified. intervertebral disc spaces are intact. no compression fx 02/15/19: Renal sono: 2 right exophytic simple cysts with largest measuring 4.7x3.8cm. both kidneys are unremarkable no stones or hydro. 02/15/19: carotid doppler: mild intimal thickening at the common carotid bifurcation, bilaterally w/o evidence of hemodynamically sig stenosis bilaterally 02/16/19: CXR: congestive changes have diminished slightly since previous exam 02/16/19 MRI brain w/o contrast: no evidence of acute or subacute infarction. brainstem gliosis. supratentorial chronic white matter microangiopathic ischemic changes. chronic L basal ganglia infarct. 02/16/19: Art duplex LE: abnormal flow b/l R>L. suggesting inflow pathology. on R side abnormal monophasic flow is documented throughout these vessels, on L side largely biphasic flow in common and superficial femoral arteries. monophasic flow in popliteal and posterior tibial arteries. inflow pathology Assessment/Plan 73 y/o F with systolic CHF, CAD, afib on xarelto, hypothyroidism, and chronic venous stasis dermatitis and swelling presents who presented with severe sepsis , hypertensive emergency, and subacute stroke. #Severe sepsis 2/2 UTI, vs. LE cellulitis -c/w zosyn (02/15) -lactic acidosis resolved -UA (+), also w/ erythema LE, chronic changes -off IVF -ID on board: Dr. Escoto #Lethargy -will f/u ABG this AM #R/o CVA -initial Head CT report showed subtle hypodensity in left basal ganglia concern for a subacute lacunar infarct -brain MRI noted above ; no acute infarct -c/w asa, statin - atorva 40mg -passed s/s -neuro consulted: Dr. Blevins -maintain controlled BP < 130/80 -PT #Acute renal failure -pre-renal; FEna 0.1%, however can also calc FEurea as was on diuretics prev -more likely 2/2 sepsis, could have been cardiorenal, but not in overload now -Hold lisinopril, spironolactone, aldactone for now -f/u urine lytes, creat -renal sono: without evidence of acute dz, renal cysts -off IVF -nephro consult: Dr. Onofre #hypertensive emergency with end organ damage (GEMMA and stroke) -has resolved; goal BP < 130/80 -c/w amlodipine -d/c lisinopril, spironolactone, and lasix for now #Afib -rate controlled -c/w metoprolol -on xarelto #hx COPD -nebs PRN -not in exacerbation #CHF-systolic function, mildly reduced -off IVF -have held lisinopril, spirinolactone, lasix -Cardio: Dr. Burleson #CAD -c/w high intensity statin aspirin and BB #Hyperglycemia likely secondary to stress/infection -not a diabetic-HbA1C 5.5% done earlier this month -ISS, BGM ACHS #Chronic Venous stasis dermatitis and edema -vasc consulted: Dr. Ramirez -without acute change; however based on art duplex, decreased flow. will f/u CTA LE -will need outpt f/u #Hypothyroidism -C/w synthroid -TSH WNL #F/E/N off IVF, avoid overload continue to follow lytes na controlled diet #PPX DVT: on xarelto #Dispo monitoring on tele will need f/u with Dr. Ramirez as outpatient <Leigh Caceres - Last Filed: 02/17/19 16:42> - Note Progress Note: Seen and examined; please see resident note for further historical information. I personally verified all johns historical information and exam findings. Personally interpreted all imaging and diagnostics and reviewed appropriate consults. I reviewed all labs and vital signs as per resident note and EMR as documented. I agree with the above assessment and plan unless supplemented by myself in the following. MRI noted to be negative, no new complaints. No new focal neurologic deficits. Working with physical therapy, qualifies for home PT. Discussing final antibiotic course with infectious disease, once completes course will be able to be discharged home with physical therapy service. No further issues per speech and swallow. VS, labs, imaging reviewed NAD, AAO, resting comfortably in bed. RRR s1/2 no mgr Normal muscle tone, moves all 5 extremities with normal apparent strength Neck is supple, trachea midline, no kulwinder LN Lungs CTAB with sym expansion NT ND +BS no kulwinder organomegaly CN2-12 wnl; no FND NC AT EOMI PERRLA Normal mood, appropriate behavior, euthymic affect No skin breakdown or rashes noted; postoperative site with bandage clean dry and intact Assessment and plan: Sepsis secondary to cellulitis versus UTI Peripheral arterial disease Subacute/acute stroke has been ruled out per MRI, neurology input appreciated Atrial fibrillation on Xarelto, currently rate controlled Hypertension Hyperlipidemia Morbid obesity with likely pickwickian syndrome, PATRICIA Deconditioning: CTA pending with the PAD; unless significant issues can followup with Dr. Ramirez as OP Barriers to discharge include completing final antibiotics, setting up home physical therapy services. Anticipate discharge within the next 24 hours. <Killian Baer - Last Filed: 02/21/19 03:29>
--- NOTE | 2019-02-17 12:51 | PN ---
Progress Note, [employer] - Note Progress Note: Selected Entries 02/16/19 02/16/19 02/16/19 02:00 06:00 09:40 Lunch 100% Supper Temperature 98.2 F 98.4 F 98.9 F 02/16/19 02/16/19 02/16/19 14:00 18:00 22:00 Lunch Supper 100% Temperature 98.1 F 98.1 F 02/17/19 06:00 Lunch Supper Temperature 98.2 F Laboratory Tests 02/14/19 02/15/19 02/16/19 16:34 06:07 06:00 WBC 21.4 H 22.2 H 12.6 H 02/17/19 05:55 WBC 10.5 H Pt is verbal, appropriate, a good historian today. Tolerating diet well MRI noted
--- NOTE | 2019-02-17 15:54 | PN ---
Progress Note, Physician History of Present Illness: Pt seen and examined at bedside. She is awake and alert. She denies shortness of breath. - Current Medication List Current Medications: Active Medications Acetaminophen (Ofirmev Injection -) 1,000 mg IVPB Q6H PRN PRN Reason: FEVER Last Admin: 02/15/19 16:16 Dose: 1,000 mg Albuterol Sulfate (Ventolin Hfa Inhaler -) 2 puff IH Q6H PRN PRN Reason: SHORT OF BREATH/WHEEZING Amlodipine Besylate (Norvasc -) 10 mg PO DAILY [facility] Last Admin: 02/17/19 10:02 Dose: 10 mg Aspirin (Ecotrin -) 81 mg PO DAILY [facility] Last Admin: 02/17/19 09:38 Dose: 81 mg Atorvastatin Calcium (Lipitor -) 40 mg PO HS [facility] Last Admin: 02/16/19 21:06 Dose: 40 mg Ferrous Sulfate (Feosol -) 325 mg PO BID [facility] Last Admin: 02/17/19 09:38 Dose: 325 mg Furosemide (Lasix -) 40 mg PO DAILY [facility] Last Admin: 02/15/19 09:20 Dose: 40 mg Piperacillin Sod/Tazobactam (Sod 3.375 gm/ Dextrose) 50 mls @ 100 mls/hr IVPB Q8H-IV [facility]; Protocol Last Admin: 02/17/19 09:38 Dose: 100 mls/hr Insulin Aspart (Novolog Vial Sliding Scale -) 1 vial SQ ACHS [facility]; Protocol Last Admin: 02/17/19 06:19 Dose: Not Given Ipratropium [place] (Atrovent 0.02% Nebulizer -) 1 amp NEB RQID [facility] Last Admin: 02/17/19 15:40 Dose: Not Given Lactobacillus Acidophilus (Bacid -) 1 tab PO DAILY [facility] Last Admin: 02/17/19 09:38 Dose: 1 tab Levothyroxine Sodium (Synthroid -) 125 mcg PO DAILY@0700 [facility] Last Admin: 02/17/19 06:44 Dose: 125 mcg Metoprolol Succinate (Toprol Xl -) 100 mg PO DAILY [facility] Last Admin: 02/17/19 09:38 Dose: 100 mg Rivaroxaban (Xarelto) 20 mg PO HS [facility] Last Admin: 02/16/19 21:06 Dose: 20 mg - Objective Vital Signs: Vital Signs Temperature 98 F 02/17/19 14:00 Pulse Rate 86 02/17/19 14:00 Respiratory Rate 26 H 02/17/19 14:00 Blood Pressure 113/51 L 02/17/19 14:00 O2 Sat by Pulse Oximetry (%) 96 02/17/19 09:00 Constitutional: Yes: Calm Eyes: Yes: Conjunctiva Clear HENT: Yes: Atraumatic Neck: Yes: Supple Cardiovascular: Yes: S1, S2 Respiratory: Yes: CTA Bilaterally Gastrointestinal: Yes: Normal Bowel Sounds, Soft, Abdomen, Obese Genitourinary: Yes: WNL Musculoskeletal: Yes: WNL Edema: Yes Edema: LLE: 1+, RLE: 1+ Integumentary: Yes: Venous Stasis Changes Neurological: Yes: Oriented Psychiatric: Yes: Oriented Labs: CBC, BMP 02/17/19 05:55 02/17/19 05:55 INR, PTT INR 1.79 (0.83-1.09) H 02/14/19 16:34 Problem List - Problems (1) Altered mental status Code(s): R41.82 - ALTERED MENTAL STATUS, UNSPECIFIED Qualifiers: Altered mental status type: disorientation Qualified Code(s): R41.0 - Disorientation, unspecified (2) Basal ganglia infarction Code(s): I63.9 - CEREBRAL INFARCTION, UNSPECIFIED (3) CVA (cerebral vascular accident) Code(s): I63.9 - CEREBRAL INFARCTION, UNSPECIFIED (4) Sepsis Code(s): A41.9 - SEPSIS, UNSPECIFIED ORGANISM Qualifiers: Sepsis type: sepsis due to unspecified organism Sepsis acute organ dysfunction status: with acute organ dysfunction Severe sepsis acute organ dysfunction type: acute respiratory failure Acute respiratory failure type: unspecified Severe sepsis shock status: without septic shock Qualified Code( s): A41.9 - Sepsis, unspecified organism; R65.20 - Severe sepsis without septic shock; J96.00 - Acute respiratory failure, unspecified whether with hypoxia or hypercapnia Assessment/Plan Current Medications Generic Name Dose Route Start Last Admin Trade Name Freq PRN Reason Stop Dose Admin Acetaminophen 1,000 mg 02/15/19 05:58 02/15/19 16:16 Ofirmev Injection - IVPB 1,000 mg Q6H PRN Administration FEVER Albuterol Sulfate 2 puff 02/14/19 22:28 Ventolin Hfa Inhaler - IH Q6H PRN SHORT OF BREATH/WHEEZING Amlodipine Besylate 10 mg 02/15/19 11:00 02/17/19 10:02 Norvasc - PO 10 mg DAILY [facility] Administration Aspirin 81 mg 02/15/19 10:00 02/17/19 09:38 Ecotrin - PO 81 mg DAILY [facility] Administration Atorvastatin Calcium 40 mg 02/15/19 22:00 02/16/19 21:06 Lipitor - PO 40 mg HS [facility] Administration Ferrous Sulfate 325 mg 02/15/19 10:00 02/17/19 09:38 Feosol - PO 325 mg BID [facility] Administration Furosemide 40 mg 02/15/19 10:00 02/15/19 09:20 Lasix - PO 40 mg DAILY [facility] Administration Piperacillin Sod/Tazobactam 50 mls @ 100 mls/hr 02/15/19 18:00 02/17/19 09:38 Sod 3.375 gm/ Dextrose IVPB 100 mls/hr Q8H-IV [facility] Administration Protocol Insulin Aspart 1 vial 02/15/19 07:00 02/17/19 06:19 Novolog Vial Sliding Scale - SQ Not Given ACHS [facility] Protocol Ipratropium [place] 1 amp 02/15/19 08:00 02/17/19 15:40 Atrovent 0.02% Nebulizer - NEB Not Given RQID [facility] Lactobacillus Acidophilus 1 tab 02/15/19 10:00 02/17/19 09:38 Bacid - PO 1 tab DAILY [facility] Administration Levothyroxine Sodium 125 mcg 02/15/19 07:00 02/17/19 06:44 Synthroid - PO 125 mcg DAILY@0700 [facility] Administration Metoprolol Succinate 100 mg 02/14/19 22:28 02/17/19 09:38 Toprol Xl - PO 100 mg DAILY [facility] Administration Rivaroxaban 20 mg 02/14/19 22:28 02/16/19 21:06 Xarelto PO 20 mg HS [facility] Administration Impression 1. GEMMA 2. sepsis 3. htn 4. cva 5. chf 6. hld 7. renal cysts Plan - renal function is improved - cont lasix - can stop fluids - avoid nephrotoxins
[2019-02-17 16:00] VITALS: BMI 42.5
--- NOTE | 2019-02-17 19:50 | PN ---
Progress Note, Physician History of Present Illness: Pt is alert, afebrile. States she feels better. RLE still with warmth/erythema with discomfort. Denies dysuria. Has some SOB but no respiratory distress. Daughters at bedside. - Current Medication List Current Medications: Active Medications Acetaminophen (Ofirmev Injection -) 1,000 mg IVPB Q6H PRN PRN Reason: FEVER Last Admin: 02/15/19 16:16 Dose: 1,000 mg Albuterol Sulfate (Ventolin Hfa Inhaler -) 2 puff IH Q6H PRN PRN Reason: SHORT OF BREATH/WHEEZING Amlodipine Besylate (Norvasc -) 10 mg PO DAILY [facility] Last Admin: 02/17/19 10:02 Dose: 10 mg Aspirin (Ecotrin -) 81 mg PO DAILY [facility] Last Admin: 02/17/19 09:38 Dose: 81 mg Atorvastatin Calcium (Lipitor -) 40 mg PO HS [facility] Last Admin: 02/16/19 21:06 Dose: 40 mg Ferrous Sulfate (Feosol -) 325 mg PO BID [facility] Last Admin: 02/17/19 09:38 Dose: 325 mg Furosemide (Lasix -) 40 mg PO DAILY [facility] Last Admin: 02/15/19 09:20 Dose: 40 mg Piperacillin Sod/Tazobactam (Sod 3.375 gm/ Dextrose) 50 mls @ 100 mls/hr IVPB Q8H-IV [facility]; Protocol Last Admin: 02/17/19 18:19 Dose: 100 mls/hr Insulin Aspart (Novolog Vial Sliding Scale -) 1 vial SQ ACHS [facility]; Protocol Last Admin: 02/17/19 06:19 Dose: Not Given Ipratropium [place] (Atrovent 0.02% Nebulizer -) 1 amp NEB RQID [facility] Last Admin: 02/17/19 15:40 Dose: Not Given Lactobacillus Acidophilus (Bacid -) 1 tab PO DAILY [facility] Last Admin: 02/17/19 09:38 Dose: 1 tab Levothyroxine Sodium (Synthroid -) 125 mcg PO DAILY@0700 [facility] Last Admin: 02/17/19 06:44 Dose: 125 mcg Metoprolol Succinate (Toprol Xl -) 100 mg PO DAILY [facility] Last Admin: 02/17/19 09:38 Dose: 100 mg Rivaroxaban (Xarelto) 20 mg PO HS [facility] Last Admin: 02/16/19 21:06 Dose: 20 mg - Objective Vital Signs: Vital Signs Temperature 98 F 02/17/19 14:00 Pulse Rate 85 02/17/19 18:35 Respiratory Rate 26 H 02/17/19 14:00 Blood Pressure 157/88 02/17/19 18:35 O2 Sat by Pulse Oximetry (%) 96 02/17/19 09:00 Constitutional: Yes: Well Nourished, No Distress, Calm Cardiovascular: Yes: Tachycardia Gastrointestinal: Yes: Normal Bowel Sounds, Soft, Abdomen, Obese Genitourinary: Yes: WNL Edema: Yes Edema: LLE: 2+, RLE: 2+ Integumentary: Yes: Erythema (RLE erythema/warmth, b/l LE edema/chronic) Neurological: Yes: Alert, Oriented Labs: CBC, BMP 02/17/19 05:55 02/17/19 05:55 INR, PTT INR 1.79 (0.83-1.09) H 02/14/19 16:34 Laboratory Results - last 24 hr 02/17/19 02/17/19 02/17/19 05:55 05:55 06:06 WBC 10.5 H RBC 3.45 L Hgb 10.6 L Hct 32.1 L MCV 93.0 MCH 30.6 MCHC 32.9 RDW 16.9 H Plt Count 148 MPV 10.0 Absolute Neuts (auto) 8.1 H Neutrophils % 77.3 Lymphocytes % 13.1 D Monocytes % 8.0 Eosinophils % 1.2 Basophils % 0.4 Nucleated RBC % 0 Sodium 139 Potassium 3.6 Chloride 103 Carbon Dioxide 29 Anion Gap 7 L BUN 18.4 H Creatinine 1.1 Est GFR (CKD-EPI)AfAm 56.87 Est GFR (CKD-EPI)NonAf 49.07 POC Glucometer 95 Random Glucose 85 Calcium 8.6 Phosphorus 2.4 L Magnesium 2.2 Microbiology 02/14/19 16:34 Blood - Peripheral Venous Blood Culture - Preliminary NO GROWTH OBTAINED AFTER 72 HOURS, INCUBATION TO CONTINUE FOR 2 DAYS. 02/14/19 16:34 Blood - Peripheral Venous Blood Culture - Preliminary NO GROWTH OBTAINED AFTER 72 HOURS, INCUBATION TO CONTINUE FOR 2 DAYS. 02/14/19 17:14 Urine - Urine Clean Catch Urine Culture - Preliminary Escherichia Coli Group D Strep Or Entero Coccus - ....Imaging Ultrasound: Report Reviewed Problem List - Problems (1) Altered mental status Code(s): R41.82 - ALTERED MENTAL STATUS, UNSPECIFIED Qualifiers: Altered mental status type: disorientation Qualified Code(s): R41.0 - Disorientation, unspecified (2) Basal ganglia infarction Code(s): I63.9 - CEREBRAL INFARCTION, UNSPECIFIED (3) Hyperlipidemia Code(s): E78.5 - HYPERLIPIDEMIA, UNSPECIFIED (4) Sepsis Code(s): A41.9 - SEPSIS, UNSPECIFIED ORGANISM Qualifiers: Sepsis type: sepsis due to unspecified organism Sepsis acute organ dysfunction status: with acute organ dysfunction Severe sepsis acute organ dysfunction type: acute respiratory failure Acute respiratory failure type: unspecified Severe sepsis shock status: without septic shock Qualified Code( s): A41.9 - Sepsis, unspecified organism; R65.20 - Severe sepsis without septic shock; J96.00 - Acute respiratory failure, unspecified whether with hypoxia or hypercapnia (5) UTI (urinary tract infection) Code(s): N39.0 - URINARY TRACT INFECTION, SITE NOT SPECIFIED Qualifiers: Urinary tract infection type: site unspecified Hematuria presence: without hematuria Qualified Code(s): N39.0 - Urinary tract infection, site not specified (6) Acute on chronic systolic and diastolic heart failure, NYHA class 2 Code(s): I50.43 - ACUTE ON CHRONIC COMBINED SYSTOLIC AND DIASTOLIC HRT FAIL (7) Afib Code(s): I48.91 - UNSPECIFIED ATRIAL FIBRILLATION Qualifiers: Atrial fibrillation type: other persistent Qualified Code(s): I48.19 - Other persistent atrial fibrillation (8) CHF exacerbation Code(s): I50.9 - HEART FAILURE, UNSPECIFIED Qualifiers: Heart failure type: diastolic Qualified Code(s): I50.33 - Acute on chronic diastolic (congestive) heart failure (9) Cellulitis Code(s): L03.90 - CELLULITIS, UNSPECIFIED Qualifiers: Site of cellulitis: extremity Site of cellulitis of extremity: lower extremity Laterality: left Qualified Code(s): L03.116 - Cellulitis of left lower limb (10) Morbid obesity Code(s): E66.01 - MORBID (SEVERE) OBESITY DUE TO EXCESS CALORIES (11) Swelling of lower leg Code(s): M79.89 - OTHER SPECIFIED SOFT TISSUE DISORDERS (12) HTN (hypertension) Code(s): I10 - ESSENTIAL (PRIMARY) HYPERTENSION Qualifiers: Hypertension type: essential hypertension Qualified Code(s): I10 - Essential (primary) hypertension (13) Hypothyroid Code(s): E03.9 - HYPOTHYROIDISM, UNSPECIFIED Qualifiers: Hypothyroidism type: unspecified Qualified Code(s): E03.9 - Hypothyroidism , unspecified (14) Lymphedema of both lower extremities Code(s): I89.0 - LYMPHEDEMA, NOT ELSEWHERE CLASSIFIED Assessment/Plan Severe sepsis UTI RLE cellulitis Acute metabolic/toxic encephalopathy Lactic acidosis Acute renal failure hypertensive emergency with end organ damage Afib CAD Hypothyroidism -- Fevers with improving leukocytosis, alert and responsive -- RLE still significantly erythematous/warm -- Doppler neg for DVT -- Vascular follow up -- continue antibiotics -- renal function improving continue close monitoring
[2019-02-17] MEDS: RIVAROXABAN 20 MG TABLET PO SCH (21:22)
[2019-02-17] MEDS: ATORVASTATIN CA 40 MG TABLET (FP) PO SCH (21:22)
[2019-02-17] MEDS: SENNOSIDES 8.6MG TABLET (FP) PO SCH (23:03)
[2019-02-18] MEDS ORDERED: PIPERACILLIN/TAZOBACTAM 3.375 GM VIAL IVPB ONE ×3 (01:05→16:50)
[2019-02-18] MEDS ORDERED: DEXTROSE 5%-WATER - 50 ML IVPB ONE ×3 (01:05→16:51)
[2019-02-18] MEDS: PIPERACILLIN/TAZOB 3.375 GM 3.375 GM in DEXTROSE 5%-WATER - 50 ML IVPB SCH ×3 (01:09→17:04)
[2019-02-18] MEDS: LEVOTHYROXINE NA 125 MCG TABLET (FP) PO SCH (06:04)
[2019-02-18] MEDS: INSULIN SLIDING SCALE (NOVOLOG) 1 VIAL SQ SCH ×5 (06:04→22:04)
[2019-02-18 07:47] LABS: BASO % 0.5 % (0-2.0); EOS % 1.4 % (0-4.5); HEMATOCRIT 32.3 % (32.4-45.2); HEMOGLOBIN 10.6 GM/dL (10.7-15.3); LYMPH % 13.2 % (8-40); MCHC 32.7 g/dl (32.0-36.0); MEAN CELL VOLUME 91.7 fl (80-96); MEAN PLT VOLUME 10.2 fl (7.5-11.1); MONO % 10.2 % (3.8-10.2); NEUT % 74.7 % (42.8-82.8); PLATELET COUNT 169 K/MM3 (134-434); RBC 3.52 M/mm3 (3.60-5.2); RDW 16.6 % (11.6-15.6); WHITE BLOOD COUNT 7.9 K/mm3 (4.0-10.0)
[2019-02-18 08:05] LABS: BLOOD UREA NITROGEN 14.4 mg/dL (7-18); CALCIUM 8.9 mg/dL (8.5-10.1); MAGNESIUM 2.2 mg/dL (1.8-2.4); PHOSPHOROUS 3.1 mg/dL (2.5-4.9); POTASSIUM 3.7 mmol/L (3.5-5.1)
[2019-02-18] MEDS: IPRATROPIUM BR 0.02% 0.5 MG/2.5 ML VIAL.NEB. NEB SCH ×4 (08:07→20:30)
--- NOTE | 2019-02-18 08:53 | PN ---
Progress Note (short form) - Note Progress Note: Neurology - Admission Chief Complaint: AMS x1 day History of Present Illness: 73 yo F with PMHx of CHF (lasix 40 bid), Afib on xarelto, CAD with cardiac cath (no stents), b/l chronic venous stasis, hypothyroidism, DM, urinary incontinence , BIBA for altered mental status, after she was found on the floor by the daughter. Per daughter, patient's last known well was around 10:30am prior to admission, when she was using her nebulizer treatment. Around 2:30 PM when the daughter returned, she found the pt on the floor covered in urine and feces and naked from waist down. Pt was reported to be confused and oriented to only self. Pt was also noted to have a temp of 103, tachycardia and elevated BP to 180s (daughter is a PT). Head CT reports indicate no acute patholgoy (though ER note indicated basal ganglia infarct per radiology, MRI reported below indicates this is chronic), chronic microvascular ischemic changes. CT of thoracic and cervical spine indicate no acute pathology. Carotid doppler completed, mild intimal thickening at the common carotid bifurcation bilaterally without significant stenosis. She described falling on her urine and hitting her forehead against a hard surface, then passing out for an unknown period of time. She denies seizures, or chest pain before or during the fall. She also denied fever and diarrhea. She acknowledges urinary incontinence and suprapubic pain. Per pt's daughter, pt is non compliant at baseline intermittently takes the lasix prescribed (40bid, 40mg daily in chart), does not check BP, do daily weights or comply with salt restricted diet. Per pulm last visit, did not think she had COPD, rather possible PATRICIA. Pt yet to get the sleep study done. PT BUN/Cr improved, WBC improved. Lactic acid elevated on admission at 2.2, improved. Pt LDL 97. Pt started on statin 40mg daily, aspirin 81mg daily (was not on at home), and xarelto daily. Brain MRI completed , with no acute pathology, basal ganglia infarct is chronic. Lower extremity duplex completed, abnormal blood flow right greater than left. Pt negative for DVT. Pt was recently discharged 02/05/19 after being treated for Klebsiella UTI with zosyn and acute CHF exacerbation. Neurologically, without new complaints at this time and stable. Active Medications Acetaminophen (Ofirmev Injection -) 1,000 mg IVPB Q6H PRN PRN Reason: FEVER Last Admin: 02/15/19 16:16 Dose: 1,000 mg Albuterol Sulfate (Ventolin Hfa Inhaler -) 2 puff IH Q6H PRN PRN Reason: SHORT OF BREATH/WHEEZING Amlodipine Besylate (Norvasc -) 10 mg PO DAILY [facility] Last Admin: 02/17/19 10:02 Dose: 10 mg Aspirin (Ecotrin -) 81 mg PO DAILY [facility] Last Admin: 02/17/19 09:38 Dose: 81 mg Atorvastatin Calcium (Lipitor -) 40 mg PO HS [facility] Last Admin: 02/17/19 21:22 Dose: 40 mg Ferrous Sulfate (Feosol -) 325 mg PO BID [facility] Last Admin: 02/17/19 21:22 Dose: 325 mg Furosemide (Lasix -) 40 mg PO DAILY [facility] Last Admin: 02/15/19 09:20 Dose: 40 mg Piperacillin Sod/Tazobactam (Sod 3.375 gm/ Dextrose) 50 mls @ 100 mls/hr IVPB Q8H-IV [facility]; Protocol Last Admin: 02/18/19 01:09 Dose: 100 mls/hr Insulin Aspart (Novolog Vial Sliding Scale -) 1 vial SQ ACHS [facility]; Protocol Last Admin: 02/18/19 06:04 Dose: Not Given Ipratropium [place] (Atrovent 0.02% Nebulizer -) 1 amp NEB RQID [facility] Last Admin: 02/18/19 08:07 Dose: 1 amp Lactobacillus Acidophilus (Bacid -) 1 tab PO DAILY [facility] Last Admin: 02/17/19 09:38 Dose: 1 tab Levothyroxine Sodium (Synthroid -) 125 mcg PO DAILY@0700 [facility] Last Admin: 02/18/19 06:04 Dose: 125 mcg Metoprolol Succinate (Toprol Xl -) 100 mg PO DAILY [facility] Last Admin: 02/17/19 09:38 Dose: 100 mg Rivaroxaban (Xarelto) 20 mg PO HS [facility] Last Admin: 02/17/19 21:22 Dose: 20 mg Senna (Senna -) 1 tab PO HS [facility] Last Admin: 02/17/19 23:03 Dose: 1 tab Physical Examination Vital Signs: Vital Signs Period Temp Pulse Resp BP Sys/Ray Pulse Ox Last 24 Hr 97.6 F-98.7 F 80-86 20-28 113-157/51-96 96-100 Constitutional: Yes: Moderate Distress, Obese HENT: Yes: Other (bipap). No: Atraumatic (Forehead with laceration/bruise about 5cm, freash, not actively bleeding with swelling) Cardiovascular: Yes: Tachycardia, S1, S2. No: Murmur Respiratory: Yes: Wheezes Gastrointestinal: Yes: Tenderness (suprAPUBIC) Renal/: Yes: Incontinence Musculoskeletal: Yes: Joint Swelling (b/L KNEE SWELLING) Edema: LLE: 1+, RLE: 1+ Integumentary: Yes: Venous Stasis Changes Neurological: awake, alert, cranial nerves appear intact, moves all extremities equally, sensory intact, finger to nose normal Psychiatric: Yes: Alert, Oriented Labs: CBCD WBC 7.9 K/mm3 (4.0-10.0) 02/18/19 06:10 RBC 3.52 M/mm3 (3.60-5.2) L 02/18/19 06:10 Hgb 10.6 GM/dL (10.7-15.3) L 02/18/19 06:10 Hct 32.3 % (32.4-45.2) L 02/18/19 06:10 MCV 91.7 fl (80-96) 02/18/19 06:10 MCHC 32.7 g/dl (32.0-36.0) 02/18/19 06:10 RDW 16.6 % (11.6-15.6) H 02/18/19 06:10 Plt Count 169 K/MM3 (134-434) 02/18/19 06:10 MPV 10.2 fl (7.5-11.1) 02/18/19 06:10 CMP Sodium 139 mmol/L (136-145) 02/18/19 06:10 Potassium 3.7 mmol/L (3.5-5.1) 02/18/19 06:10 Chloride 103 mmol/L (98-107) 02/18/19 06:10 Carbon Dioxide 28 mmol/L (21-32) 02/18/19 06:10 Anion Gap 8 MMOL/L (8-16) 02/18/19 06:10 BUN 14.4 mg/dL (7-18) 02/18/19 06:10 Creatinine 1.0 mg/dL (0.55-1.3) 02/18/19 06:10 Random Glucose 88 mg/dL (74-106) 02/18/19 06:10 Calcium 8.9 mg/dL (8.5-10.1) 02/18/19 06:10 Total Bilirubin 0.7 mg/dL (0.2-1) 02/16/19 06:00 AST 21 U/L (15-37) 02/16/19 06:00 ALT 24 U/L (13-61) 02/16/19 06:00 Alkaline Phosphatase 58 U/L (45-117) 02/16/19 06:00 Total Protein 6.4 g/dl (6.4-8.2) 02/16/19 06:00 Albumin 2.5 g/dl (3.4-5.0) L 02/16/19 06:00 CARDIAC ENZYMES Creatine Kinase 128 U/L (26-192) 02/14/19 16:34 Troponin I < 0.02 ng/ml (0.00-0.05) 02/14/19 16:34 Assessment/Plan 73 yo F with PMHx of CHF (lasix 40 bid), Afib on xarelto, CAD with cardiac cath (no stents), b/l chronic venous stasis, hypothyroidism, DM, urinary incontinence , BIBA for altered mental status, after she was found on the floor by the daughter. Per daughter, patient's last known well was around 10:30am prior to admission, when she was using her nebulizer treatment. Around 2:30 PM when the daughter returned, she found the pt on the floor covered in urine and feces and naked from waist down. Pt was reported to be confused and oriented to only self. Pt was also noted to have a temp of 103, tachycardia and elevated BP to 180s (daughter is a PT). Head CT reports indicate no acute patholgoy (though ER note indicated basal ganglia infarct per radiology, MRI reported below indicates this is chronic), chronic microvascular ischemic changes. CT of thoracic and cervical spine indicate no acute pathology. Carotid doppler completed, mild intimal thickening at the common carotid bifurcation bilaterally without significant stenosis. She described falling on her urine and hitting her forehead against a hard surface, then passing out for an unknown period of time. She denies seizures, or chest pain before or during the fall. She also denied fever and diarrhea. She acknowledges urinary incontinence and suprapubic pain. Per pt's daughter, pt is non compliant at baseline intermittently takes the lasix prescribed (40bid, 40mg daily in chart), does not check BP, do daily weights or comply with salt restricted diet. Per pulm last visit, did not think she had COPD, rather possible PATRICIA. Pt yet to get the sleep study done. PT BUN/Cr improved, WBC improved. Lactic acid elevated on admission at 2.2, decreased to 1.5. Pt LDL 97. Pt started on statin 40mg daily , aspirin 81mg daily, and xarelto daily. Brain MRI completed, with no acute pathology, basal ganglia infarct is chronic. Lower extremity duplex completed, abnormal blood flow right greater than left. Pt negative for DVT. Pt was recently discharged 02/05/19 after being treated for Klebsiella UTI with zosyn and acute CHF exacerbation. Maintain blood pressure less than 140/90 for now, prefer < 130/80 as outpatient. Informed her importance of tight blood pressure control andsecondary prevention of CVA. She is on aspirin for small vessel disease along with Xarelto to prevent cardioembolic secondary to atrial fibrillation. Physical therapy as tolerated, fall precautions. Medication compliance extremely important and discussed with patient. Neurologically, without new complaints at this time and stable, to follow up as outpatient.
[2019-02-18] MEDS ORDERED: ACETAMINOPHEN 325 MG TABLET (FP) PO PRN (09:18)
--- NOTE | 2019-02-18 10:45 | PN ---
Progress Note, Physician History of Present Illness: Pt seen and examined at bedside. She is awake and alert. She denies shortness of breath. - Current Medication List Current Medications: Active Medications Acetaminophen (Tylenol -) 650 mg PO Q6H PRN PRN Reason: HEADACHE Albuterol Sulfate (Ventolin Hfa Inhaler -) 2 puff IH Q6H PRN PRN Reason: SHORT OF BREATH/WHEEZING Amlodipine Besylate (Norvasc -) 10 mg PO DAILY [facility] Last Admin: 02/17/19 10:02 Dose: 10 mg Aspirin (Ecotrin -) 81 mg PO DAILY [facility] Last Admin: 02/17/19 09:38 Dose: 81 mg Atorvastatin Calcium (Lipitor -) 40 mg PO HS [facility] Last Admin: 02/17/19 21:22 Dose: 40 mg Ferrous Sulfate (Feosol -) 325 mg PO BID [facility] Last Admin: 02/17/19 21:22 Dose: 325 mg Furosemide (Lasix -) 40 mg PO DAILY [facility] Last Admin: 02/15/19 09:20 Dose: 40 mg Piperacillin Sod/Tazobactam (Sod 3.375 gm/ Dextrose) 50 mls @ 100 mls/hr IVPB Q8H-IV [facility]; Protocol Last Admin: 02/18/19 01:09 Dose: 100 mls/hr Insulin Aspart (Novolog Vial Sliding Scale -) 1 vial SQ ACHS [facility]; Protocol Last Admin: 02/18/19 06:04 Dose: Not Given Ipratropium [place] (Atrovent 0.02% Nebulizer -) 1 amp NEB RQID [facility] Last Admin: 02/18/19 08:07 Dose: 1 amp Lactobacillus Acidophilus (Bacid -) 1 tab PO DAILY [facility] Last Admin: 02/17/19 09:38 Dose: 1 tab Levothyroxine Sodium (Synthroid -) 125 mcg PO DAILY@0700 [facility] Last Admin: 02/18/19 06:04 Dose: 125 mcg Metoprolol Succinate (Toprol Xl -) 100 mg PO DAILY [facility] Last Admin: 02/17/19 09:38 Dose: 100 mg Rivaroxaban (Xarelto) 20 mg PO HS [facility] Last Admin: 02/17/19 21:22 Dose: 20 mg Senna (Senna -) 1 tab PO HS [facility] Last Admin: 02/17/19 23:03 Dose: 1 tab - Objective Vital Signs: Vital Signs Temperature 98.6 F 12/18/19 06:00 Pulse Rate 80 02/18/19 06:00 Respiratory Rate 20 02/18/19 08:26 Blood Pressure 139/84 02/18/19 06:00 O2 Sat by Pulse Oximetry (%) 100 02/18/19 08:26 Constitutional: Yes: Calm Eyes: Yes: Conjunctiva Clear HENT: Yes: Atraumatic Neck: Yes: Supple Cardiovascular: Yes: S1, S2 Respiratory: Yes: CTA Bilaterally Gastrointestinal: Yes: Normal Bowel Sounds, Soft Genitourinary: Yes: WNL Musculoskeletal: Yes: WNL Edema: Yes Edema: LLE: 1+, RLE: 1+ Integumentary: Yes: Venous Stasis Changes Neurological: Yes: Oriented Psychiatric: Yes: Oriented Labs: CBC, BMP 02/18/19 06:10 02/18/19 06:10 INR, PTT INR 1.79 (0.83-1.09) H 02/14/19 16:34 Problem List - Problems (1) Altered mental status Code(s): R41.82 - ALTERED MENTAL STATUS, UNSPECIFIED Qualifiers: Altered mental status type: disorientation Qualified Code(s): R41.0 - Disorientation, unspecified (2) Basal ganglia infarction Code(s): I63.9 - CEREBRAL INFARCTION, UNSPECIFIED (3) CVA (cerebral vascular accident) Code(s): I63.9 - CEREBRAL INFARCTION, UNSPECIFIED (4) Sepsis Code(s): A41.9 - SEPSIS, UNSPECIFIED ORGANISM Qualifiers: Sepsis type: sepsis due to unspecified organism Sepsis acute organ dysfunction status: with acute organ dysfunction Severe sepsis acute organ dysfunction type: acute respiratory failure Acute respiratory failure type: unspecified Severe sepsis shock status: without septic shock Qualified Code( s): A41.9 - Sepsis, unspecified organism; R65.20 - Severe sepsis without septic shock; J96.00 - Acute respiratory failure, unspecified whether with hypoxia or hypercapnia Assessment/Plan Current Medications Generic Name Dose Route Start Last Admin Trade Name Freq PRN Reason Stop Dose Admin Acetaminophen 650 mg 02/18/19 09:18 Tylenol - PO Q6H PRN HEADACHE Albuterol Sulfate 2 puff 02/14/19 22:28 Ventolin Hfa Inhaler - IH Q6H PRN SHORT OF BREATH/WHEEZING Amlodipine Besylate 10 mg 02/15/19 11:00 02/17/19 10:02 Norvasc - PO 10 mg DAILY [facility] Administration Aspirin 81 mg 02/15/19 10:00 02/17/19 09:38 Ecotrin - PO 81 mg DAILY [facility] Administration Atorvastatin Calcium 40 mg 02/15/19 22:00 02/17/19 21:22 Lipitor - PO 40 mg HS [facility] Administration Ferrous Sulfate 325 mg 02/15/19 10:00 02/17/19 21:22 Feosol - PO 325 mg BID [facility] Administration Furosemide 40 mg 02/15/19 10:00 02/15/19 09:20 Lasix - PO 40 mg DAILY [facility] Administration Piperacillin Sod/Tazobactam 50 mls @ 100 mls/hr 02/15/19 18:00 02/18/19 01:09 Sod 3.375 gm/ Dextrose IVPB 100 mls/hr Q8H-IV [facility] Administration Protocol Insulin Aspart 1 vial 02/15/19 07:00 02/18/19 06:04 Novolog Vial Sliding Scale - SQ Not Given ACHS [facility] Protocol Ipratropium [place] 1 amp 02/15/19 08:00 02/18/19 08:07 Atrovent 0.02% Nebulizer - NEB 1 amp RQID [facility] Administration Lactobacillus Acidophilus 1 tab 02/15/19 10:00 02/17/19 09:38 Bacid - PO 1 tab DAILY [facility] Administration Levothyroxine Sodium 125 mcg 02/15/19 07:00 02/18/19 06:04 Synthroid - PO 125 mcg DAILY@0700 [facility] Administration Metoprolol Succinate 100 mg 02/14/19 22:28 02/17/19 09:38 Toprol Xl - PO 100 mg DAILY [facility] Administration Rivaroxaban 20 mg 02/14/19 22:28 02/17/19 21:22 Xarelto PO 20 mg HS [facility] Administration Senna 1 tab 02/17/19 23:00 02/17/19 23:03 Senna - PO 1 tab HS [facility] Administration Impression 1. GEMMA 2. sepsis 3. htn 4. cva 5. chf 6. hld 7. 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
--- NOTE | 2019-02-18 11:12 | PN ---
Progress Note (short form) - Note Progress Note: Hospitalist Medicine OOB in chair, with urinary incontinence x 1 per pt this AM. No dysuria Vitals 02/18/19 02/18/19 06:00 08:06 Temperature 98.6 F Respiratory 20 Rate Blood Pressure 139/84 O2 Sat by Pulse 98 Oximetry (%) Physical Exam general: resting in bed, in NAD HEENT: NCAT, PERRLA neck: supple cardio: irreg irreg. no r/m/g. pulm: CTA b/l. no crackles abdomen: obese, non distended. mild suprapubic tenderness LE: 1+ pitting edema b/l. +chronic venous changes. +still w/ RLE, dusky erythema Laboratory Tests 02/18/19 02/18/19 06:10 06:10 WBC 7.9 Hgb 10.6 L Hct 32.3 L Plt Count 169 Sodium 139 Potassium 3.7 Chloride 103 Carbon Dioxide 28 BUN 14.4 Creatinine 1.0 Random Glucose 88 Microbiology 02/14/19 17:14 Urine - Urine Clean Catch Urine Culture - Final Escherichia Coli Vr Ec Faecium 02/14/19 16:34 Blood - Peripheral Venous Blood Culture - Preliminary NO GROWTH OBTAINED AFTER 72 HOURS, INCUBATION TO CONTINUE FOR 2 DAYS. 02/14/19 16:34 Blood - Peripheral Venous Blood Culture - Preliminary NO GROWTH OBTAINED AFTER 72 HOURS, INCUBATION TO CONTINUE FOR 2 DAYS. Imaging 02/14/19: CXR: large heart, congestive changes 02/14/19: CT t-spine, CT c-spine 02/14/19: CT head: moderate vol loss, ventricular dilation, moderate chronic microvascular ischemic changes. no mass lesion, gross acute infarct or intracranial hemorrhage are identified. no fracture or subluxation are identified. intervertebral disc spaces are intact. no compression fx 02/15/19: Renal sono: 2 right exophytic simple cysts with largest measuring 4.7x3.8cm. both kidneys are unremarkable no stones or hydro. 02/15/19: carotid doppler: mild intimal thickening at the common carotid bifurcation, bilaterally w/o evidence of hemodynamically sig stenosis bilaterally 02/16/19: CXR: congestive changes have diminished slightly since previous exam 02/16/19 MRI brain w/o contrast: no evidence of acute or subacute infarction. brainstem gliosis. supratentorial chronic white matter microangiopathic ischemic changes. chronic L basal ganglia infarct. 02/16/19: Art duplex LE: abnormal flow b/l R>L. suggesting inflow pathology. on R side abnormal monophasic flow is documented throughout these vessels, on L side largely biphasic flow in common and superficial femoral arteries. monophasic flow in popliteal and posterior tibial arteries. inflow pathology 02/17/19: aorta runoff: high grade stenosis IRENE, which is patent proximally then diminutive in its mid aspect followed by occlusion of the distal IRENE and dorsalis pedis a. trace L sided pl eff, with overlying linear atelectasis scar. cardiomegaly, bilteral renal cysts, marked adrenal hyperplasia, b/l ing lymphadenopathy, subcutaneous edema in pelvis, thighs Assessment/Plan 73 y/o F with systolic CHF, CAD, afib on xarelto, hypothyroidism, and chronic venous stasis dermatitis and swelling presents who presented with severe sepsis , hypertensive emergency, and subacute stroke. #Severe sepsis 2/2 UTI, vs. LE cellulitis -c/w zosyn (02/15); growing VRE in Ucx, will likely need to change abx. will d/ w ID -lactic acidosis resolved -iso precautions -UA (+), also w/ erythema LE, chronic changes -off IVF -ID on board: Dr. Escoto #R/o CVA -initial Head CT report showed subtle hypodensity in left basal ganglia concern for a subacute lacunar infarct -brain MRI noted above ; no acute infarct -c/w asa, statin - atorva 40mg -passed s/s -neuro consulted: Dr. Blevins -maintain controlled BP < 130/80 -PT #Acute renal failure - resolved -pre-renal; FEna 0.1%, however can also calc FEurea as was on diuretics prev -more likely 2/2 sepsis, could have been cardiorenal, but not in overload now -Hold lisinopril, spironolactone for now -renal sono: without evidence of acute dz, renal cysts -off IVF -nephro consult: Dr. Onofre #hypertensive emergency with end organ damage (GEMMA and stroke) - resolved -c/w amlodipine -d/c lisinopril, spironolactone, and lasix for now #Afib -rate controlled -c/w metoprolol -on xarelto #hx COPD -nebs PRN -not in exacerbation #CHF-systolic function, mildly reduced -off IVF -have held lisinopril, spirinolactone, lasix -Cardio: Dr. Burleson #CAD -c/w high intensity statin aspirin and BB #Hyperglycemia likely secondary to stress/infection -not a diabetic-HbA1C 5.5% done earlier this month -ISS, BGM ACHS #Chronic Venous stasis dermatitis and edema -vasc consulted: Dr. Ramirez -without acute change; however based on art duplex, aorta runoff, w/ decreased flow. -will need outpt f/u #Hypothyroidism -C/w synthroid -TSH WNL #F/E/N off IVF, avoid overload continue to follow lytes na controlled diet #PPX DVT: on xarelto #Dispo monitoring on tele will need f/u with Dr. Ramirez as outpatient <Leigh Caceres - Last Filed: 02/18/19 19:10> - Note Progress Note: Seen and examined; please refer to resident note for further historical information. I agree with the aforementioned assessment and plan and historical information aside from as supplemented by myself. Independently verified all johns exam findings and diagnostics. I discussed the case at length with the resident and agree with the plan as outlined. Agree with above subjective information 10 sys ROS done and negative aside from HPI VS, labs, imaging reviewed NAD AAO resting in bed; on O2. Mentation improved, not lethargic, some minor confusion regarding date. NC AT EOMI PERRLA HR wnl, s1/2+; chronic dependent edema in apparent NSR NT ND +BS CN2-12 wnl, no fnd Normal mood, appropriate behavior Assessment and plan: Continues on IV abx per ID and is working with physical therapy. Mentation is improved and CVA remains reuled out. Pulmonary, Nephro, and CV recs noted. A Her probelms include: -AMS 2/2 Toxic metabolic encephalopathy (UTI +/- HTN encephalopathy) -Sepsis 2/2 UTI secondary to E. coli, VRE UTI -HTN Emergency -Chronic left basal ganglia ischemic infarct -GEMMA on CKD (Resolved; on home meds which do have some nephrotoxic effect. Ensuring continued excellent renal function prior to discharge) -Chronic CAD with no acute symptoms, monitor. No issues on telemetry. ASA, MS , Atorva -Afib with elevated CV2 score, on home Xarelto and rate controlled. Med adjustments per Dr. Burleson. -Chronic HFrEF with ongoing NYHA I-II symptoms, at baseline, resuming home aldactone and lasix when clinically appropriate. -COPD (Class unknown); continue home meds and FU with pulm as OP for PFTs. Appreciate pulmonary input. -Chronic venous stasis with underlying PAD and claudication symptoms; r/o overlying cellulitis contributing to presentation. FU diagnostics and discuss with Dr. Ramirez. -Hx Hypothyroidism; clinically stable and can FU TSH as OP to adjust LT4 dose. -Chronic Anemia, stable; 12/2018 iron studies reviewed. Can go ahead and monitor CBC with respect to guideline-based XF thresholds. -Hyperglycemia without DM (resolved) -Morbid Obesity (BMI 42; PATRICIA likely contributing to underlying chronic respiratory issues. Can FU per pulmonary medicine. 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 Bariatric referral would not be indicated due to her multiple medical comorbidities, etc.) Full Code <Killian Baer - Last Filed: 02/21/19 03:33>
[2019-02-18] MEDS: FERROUS SO4 325 MG TABLET (FP) PO SCH ×2 (11:43→22:04)
[2019-02-18] MEDS: LACTOBACILLUS ACIDOPHILUS 1 TABLET PO SCH (11:43)
[2019-02-18] MEDS: amLODIPine BESYLATE 10 MG TABLET (FP) PO SCH (11:43)
[2019-02-18] MEDS: ASPIRIN COATED 81 MG TABLET.EC PO SCH (11:44)
--- NOTE | 2019-02-18 14:01 | PN ---
Progress Note, Physician - Current Medication List Current Medications: Active Medications Acetaminophen (Tylenol -) 650 mg PO Q6H PRN PRN Reason: HEADACHE Albuterol Sulfate (Ventolin Hfa Inhaler -) 2 puff IH Q6H PRN PRN Reason: SHORT OF BREATH/WHEEZING Amlodipine Besylate (Norvasc -) 10 mg PO DAILY ON LICENSE OF [facility] Last Admin: 02/18/19 11:43 Dose: 10 mg Aspirin (Ecotrin -) 81 mg PO DAILY ON LICENSE OF [facility] Last Admin: 02/18/19 11:44 Dose: 81 mg Atorvastatin Calcium (Lipitor -) 40 mg PO HS ON LICENSE OF [facility] Last Admin: 02/17/19 21:22 Dose: 40 mg Ferrous Sulfate (Feosol -) 325 mg PO BID ON LICENSE OF [facility] Last Admin: 02/18/19 11:43 Dose: 325 mg Furosemide (Lasix -) 40 mg PO DAILY ON [facility] OF [facility] Last Admin: 02/15/19 09:20 Dose: 40 mg Piperacillin Sod/Tazobactam (Sod 3.375 gm/ Dextrose) 50 mls @ 100 mls/hr IVPB Q8H-IV ON LICENSE OF [facility]; Protocol Last Admin: 02/18/19 11:44 Dose: 100 mls/hr Insulin Aspart (Novolog Vial Sliding Scale -) 1 vial SQ ACHS ON LICENSE OF [facility]; Protocol Last Admin: 02/18/19 12:12 Dose: Not Given Ipratropium [place] (Atrovent 0.02% Nebulizer -) 1 amp NEB RQID ON LICENSE OF [facility] Last Admin: 02/18/19 12:36 Dose: Not Given Lactobacillus Acidophilus (Bacid -) 1 tab PO DAILY ON LICENSE OF [facility] Last Admin: 02/18/19 11:43 Dose: 1 tab Levothyroxine Sodium (Synthroid -) 125 mcg PO DAILY@0700 ON LICENSE OF [facility] Last Admin: 02/18/19 06:04 Dose: 125 mcg Metoprolol Succinate (Toprol Xl -) 100 mg PO DAILY ON [facility] OF [facility] Last Admin: 02/18/19 11:44 Dose: 100 mg Rivaroxaban (Xarelto) 20 mg PO HS ON LICENSE OF [facility] Last Admin: 02/17/19 21:22 Dose: 20 mg Senna (Senna -) 1 tab PO HS ON LICENSE OF [facility] Last Admin: 02/17/19 23:03 Dose: 1 tab - Objective Vital Signs: Vital Signs Temperature 98.4 F 02/18/19 10:00 Pulse Rate 81 02/18/19 10:00 Respiratory Rate 18 02/18/19 10:00 Blood Pressure 143/94 02/18/19 10:00 O2 Sat by Pulse Oximetry (%) 98 02/18/19 12:35 Labs: CBC, BMP 02/18/19 06:10 02/18/19 06:10 INR, PTT INR 1.79 (0.83-1.09) H 02/14/19 16:34
--- NOTE | 2019-02-18 14:21 | PN ---
Teaching Attending Note Name of Resident: Leigh Caceres ATTENDING PHYSICIAN STATEMENT I saw and evaluated the patient. I reviewed the resident's note and discussed the case with the resident. I agree with the resident's findings and plan as documented. SUBJECTIVE: Patient has no complaints. OBJECTIVE: Vital Signs Period Temp Pulse Resp BP Sys/Ray Pulse Ox Last 24 Hr 97.6 F-98.7 F 80-86 18-26 120-157/68-96 96-100 HEART: Irregularly irregular LUNGS: Clear ABDOMEN: Obese, soft, non-tender, non-distended, normal BS EXTREMITIES: 1+ edema with venous stasis changes bilaterally Laboratory Results - last 24 hr 02/18/19 02/18/19 06:10 06:10 WBC 7.9 RBC 3.52 L Hgb 10.6 L Hct 32.3 L MCV 91.7 MCH 30.0 MCHC 32.7 RDW 16.6 H Plt Count 169 MPV 10.2 Absolute Neuts (auto) 5.9 Neutrophils % 74.7 Lymphocytes % 13.2 Monocytes % 10.2 Eosinophils % 1.4 Basophils % 0.5 Nucleated RBC % 0 Sodium 139 Potassium 3.7 Chloride 103 Carbon Dioxide 28 Anion Gap 8 BUN 14.4 Creatinine 1.0 Est GFR (CKD-EPI)AfAm 63.82 Est GFR (CKD-EPI)NonAf 55.07 Random Glucose 88 Calcium 8.9 Phosphorus 3.1 Magnesium 2.2 Current Medications Generic Name Dose Route Start Last Admin Trade Name Freq PRN Reason Stop Dose Admin Acetaminophen 650 mg 02/18/19 09:18 Tylenol - PO Q6H PRN HEADACHE Albuterol Sulfate 2 puff 02/14/19 22:28 Ventolin Hfa Inhaler - IH Q6H PRN SHORT OF BREATH/WHEEZING Amlodipine Besylate 10 mg 02/15/19 11:00 02/18/19 11:43 Norvasc - PO 10 mg DAILY ALYSSA Administration Aspirin 81 mg 02/15/19 10:00 02/18/19 11:44 Ecotrin - PO 81 mg DAILY AL[facility]SSA Administration Atorvastatin Calcium 40 mg 02/15/19 22:00 02/17/19 21:22 Lipitor - PO 40 mg HS ALYSSA Administration Ferrous Sulfate 325 mg 02/15/19 10:00 02/18/19 11:43 Feosol - PO 325 mg BID ALYSSA Administration Furosemide 40 mg 02/15/19 10:00 02/15/19 09:20 Lasix - PO 40 mg DAILY ALYSSA Administration Piperacillin Sod/Tazobactam 50 mls @ 100 mls/hr 02/15/19 18:00 02/18/19 11:44 Sod 3.375 gm/ Dextrose IVPB 100 mls/hr Q8H-IV AL[facility]SSA Administration Protocol Insulin Aspart 1 vial 02/15/19 07:00 02/18/19 12:12 Novolog Vial Sliding Scale - SQ Not Given ACHS [facility] Protocol Ipratropium [place] 1 amp 02/15/19 08:00 02/18/19 12:36 Atrovent 0.02% Nebulizer - NEB Not Given RQID ALYSSA Lactobacillus Acidophilus 1 tab 02/15/19 10:00 02/18/19 11:43 Bacid - PO 1 tab DAILY ALYSSA Administration Levothyroxine Sodium 125 mcg 02/15/19 07:00 02/18/19 06:04 Synthroid - PO 125 mcg DAILY@0700 [facility] Administration Metoprolol Succinate 100 mg 02/14/19 22:28 02/18/19 11:44 Toprol Xl - PO 100 mg DAILY ALYSSA Administration Rivaroxaban 20 mg 02/14/19 22:28 02/17/19 21:22 Xarelto PO 20 mg HS ALYSSA Administration Senna 1 tab 02/17/19 23:00 02/17/19 23:03 Senna - PO 1 tab HS ALYSSA Administration ASSESSMENT AND PLAN: This is a 73 year old woman with a history of chronic systolic heart failure, CAD, atrial fib, HTN, COPD, hypothyroidism, chronic venous stasis who presented to the ED with altered mental status. 1. Severe sepsis secondary to E. coli, VRE UTI - On Zosyn - abx per ID 2. Chronic left basal ganglia ischemic infarct 3. Acute kidney injury - Resolved 4. Hypertensive emergency - Resolved 5. HTN - Continue Norvasc, Toprol XL, Lasix 6. CAD - Continue aspirin, Toprol XL, Lipitor 7. Atrial fibrillation, permanent, with RVR - Rate controlled - Continue Toprol XL, Xarelto 8. COPD - Stable - Continue Atrovent 9. Chronic systolic heart failure - Stable - Continue Lasix - Lisinopril, Aldactone on hold secondary to GEMMA 10. Chronic venous stasis 11. PAD - CTA shows high grade stenosis at origin of left IRENE, occlusion of distal IRENE and dorsalis pedis artery - Outpatient vascualr surgery follow up 12. Hypothyroidism - Continue Synthroid 13. Anemia, likely secondary to chronic illness - Iron, TIBC, iron saturation all low with normal ferritin in 12/2018 - Hgb stable - Continue ferrous sulfate
[2019-02-18] MEDS: SENNOSIDES 8.6MG TABLET (FP) PO SCH (22:03)
[2019-02-18] MEDS: ATORVASTATIN CA 40 MG TABLET (FP) PO SCH (22:03)
[2019-02-18] MEDS: RIVAROXABAN 20 MG TABLET PO SCH (22:04)
[2019-02-19] MEDS ORDERED: DEXTROSE 5%-WATER - 50 ML IVPB ONE ×3 (01:50→17:26)
[2019-02-19] MEDS ORDERED: PIPERACILLIN/TAZOBACTAM 3.375 GM VIAL IVPB ONE ×3 (01:50→17:26)
[2019-02-19] MEDS: PIPERACILLIN/TAZOB 3.375 GM 3.375 GM in DEXTROSE 5%-WATER - 50 ML IVPB SCH ×3 (02:31→20:51)
[2019-02-19] MEDS: INSULIN SLIDING SCALE (NOVOLOG) 1 VIAL SQ SCH ×4 (06:22→22:49)
[2019-02-19] MEDS: LEVOTHYROXINE NA 125 MCG TABLET (FP) PO SCH (06:23)
[2019-02-19 06:52] LABS: BASO % 0.4 % (0-2.0); EOS % 1.5 % (0-4.5); HEMATOCRIT 34.3 % (32.4-45.2); HEMOGLOBIN 11.2 GM/dL (10.7-15.3); LYMPH % 17.2 % (8-40); MCH 30.1 pg (25.7-33.7); MCHC 32.7 g/dl (32.0-36.0); MEAN CELL VOLUME 92.2 fl (80-96); MEAN PLT VOLUME 9.6 fl (7.5-11.1); MONO % 10.7 % (3.8-10.2); NEUT % 70.2 % (42.8-82.8); PLATELET COUNT 168 K/MM3 (134-434); RBC 3.72 M/mm3 (3.60-5.2); RDW 16.4 % (11.6-15.6); WHITE BLOOD COUNT 7.1 K/mm3 (4.0-10.0)
[2019-02-19 07:15] LABS: BLOOD UREA NITROGEN 12.1 mg/dL (7-18); CALCIUM 8.5 mg/dL (8.5-10.1); MAGNESIUM 2.1 mg/dL (1.8-2.4); PHOSPHOROUS 3.3 mg/dL (2.5-4.9); POTASSIUM 3.9 mmol/L (3.5-5.1)
[2019-02-19] MEDS: IPRATROPIUM BR 0.02% 0.5 MG/2.5 ML VIAL.NEB. NEB SCH ×4 (08:28→20:00)
--- NOTE | 2019-02-19 09:01 | PN ---
Progress Note (short form) - Note Progress Note: Neurology - Admission Chief Complaint: AMS x1 day History of Present Illness: 73 yo F with PMHx of CHF (lasix 40 bid), Afib on xarelto, CAD with cardiac cath (no stents), b/l chronic venous stasis, hypothyroidism, DM, urinary incontinence , BIBA for altered mental status, after she was found on the floor by the daughter. Per daughter, patient's last known well was around 10:30am prior to admission, when she was using her nebulizer treatment. Around 2:30 PM when the daughter returned, she found the pt on the floor covered in urine and feces and naked from waist down. Pt was reported to be confused and oriented to only self. Pt was also noted to have a temp of 103, tachycardia and elevated BP to 180s (daughter is a PT). Head CT reports indicate no acute patholgoy (though ER note indicated basal ganglia infarct per radiology, MRI reported below indicates this is chronic), chronic microvascular ischemic changes. CT of thoracic and cervical spine indicate no acute pathology. Carotid doppler completed, mild intimal thickening at the common carotid bifurcation bilaterally without significant stenosis. She described falling on her urine and hitting her forehead against a hard surface, then passing out for an unknown period of time. She denies seizures, or chest pain before or during the fall. She also denied fever and diarrhea. She acknowledges urinary incontinence and suprapubic pain. Per pt's daughter, pt is non compliant at baseline intermittently takes the lasix prescribed (40bid, 40mg daily in chart), does not check BP, do daily weights or comply with salt restricted diet. Per pulm last visit, did not think she had COPD, rather possible PATRICIA. Pt yet to get the sleep study done. PT BUN/Cr improved, WBC improved. Lactic acid elevated on admission at 2.2, improved. Pt LDL 97. Pt started on statin 40mg daily, aspirin 81mg daily (was not on at home), and xarelto daily. Brain MRI completed , with no acute pathology, basal ganglia infarct is chronic. Lower extremity duplex completed, abnormal blood flow right greater than left. Pt negative for DVT. Pt was recently discharged 02/05/19 after being treated for Klebsiella UTI with zosyn and acute CHF exacerbation. Neurologically, patient was complaining of a headache and therefore I had started her on Tylenol which she has found very helpful. I also discussed with regional marketing director regarding her blood pressures which have been slightly elevated and we discussed trying to reduce which may also improve her headaches. Active Medications Acetaminophen (Ofirmev Injection -) 1,000 mg IVPB Q6H PRN PRN Reason: FEVER Last Admin: 02/15/19 16:16 Dose: 1,000 mg Albuterol Sulfate (Ventolin Hfa Inhaler -) 2 puff IH Q6H PRN PRN Reason: SHORT OF BREATH/WHEEZING Amlodipine Besylate (Norvasc -) 10 mg PO DAILY [facility] Last Admin: 02/17/19 10:02 Dose: 10 mg Aspirin (Ecotrin -) 81 mg PO DAILY [facility] Last Admin: 02/17/19 09:38 Dose: 81 mg Atorvastatin Calcium (Lipitor -) 40 mg PO HS [facility] Last Admin: 02/17/19 21:22 Dose: 40 mg Ferrous Sulfate (Feosol -) 325 mg PO BID [facility] Last Admin: 02/17/19 21:22 Dose: 325 mg Furosemide (Lasix -) 40 mg PO DAILY [facility] Last Admin: 02/15/19 09:20 Dose: 40 mg Piperacillin Sod/Tazobactam (Sod 3.375 gm/ Dextrose) 50 mls @ 100 mls/hr IVPB Q8H-IV [facility]; Protocol Last Admin: 02/18/19 01:09 Dose: 100 mls/hr Insulin Aspart (Novolog Vial Sliding Scale -) 1 vial SQ ACHS [facility]; Protocol Last Admin: 02/18/19 06:04 Dose: Not Given Ipratropium [place] (Atrovent 0.02% Nebulizer -) 1 amp NEB RQID [facility] Last Admin: 02/18/19 08:07 Dose: 1 amp Lactobacillus Acidophilus (Bacid -) 1 tab PO DAILY [facility] Last Admin: 02/17/19 09:38 Dose: 1 tab Levothyroxine Sodium (Synthroid -) 125 mcg PO DAILY@0700 [facility] Last Admin: 02/18/19 06:04 Dose: 125 mcg Metoprolol Succinate (Toprol Xl -) 100 mg PO DAILY [facility] Last Admin: 02/17/19 09:38 Dose: 100 mg Rivaroxaban (Xarelto) 20 mg PO HS [facility] Last Admin: 02/17/19 21:22 Dose: 20 mg Senna (Senna -) 1 tab PO HS [facility] Last Admin: 02/17/19 23:03 Dose: 1 tab Physical Examination Vital Signs: Vital Signs Period Temp Pulse Resp BP Sys/Ray Pulse Ox Last 24 Hr 97.6 F-98.7 F 80-86 20-28 113-157/51-96 96-100 Constitutional: Yes: Moderate Distress, Obese HENT: Yes: Other (bipap). No: Atraumatic (Forehead with laceration/bruise about 5cm, freash, not actively bleeding with swelling) Cardiovascular: Yes: Tachycardia, S1, S2. No: Murmur Respiratory: Yes: Wheezes Gastrointestinal: Yes: Tenderness (suprAPUBIC) Renal/: Yes: Incontinence Musculoskeletal: Yes: Joint Swelling (b/L KNEE SWELLING) Edema: LLE: 1+, RLE: 1+ Integumentary: Yes: Venous Stasis Changes Neurological: awake, alert, cranial nerves appear intact, moves all extremities equally, sensory intact, finger to nose normal Psychiatric: Yes: Alert, Oriented Labs: CBCD WBC 7.9 K/mm3 (4.0-10.0) 02/18/19 06:10 RBC 3.52 M/mm3 (3.60-5.2) L 02/18/19 06:10 Hgb 10.6 GM/dL (10.7-15.3) L 02/18/19 06:10 Hct 32.3 % (32.4-45.2) L 02/18/19 06:10 MCV 91.7 fl (80-96) 02/18/19 06:10 MCHC 32.7 g/dl (32.0-36.0) 02/18/19 06:10 RDW 16.6 % (11.6-15.6) H 02/18/19 06:10 Plt Count 169 K/MM3 (134-434) 02/18/19 06:10 MPV 10.2 fl (7.5-11.1) 02/18/19 06:10 CMP Sodium 139 mmol/L (136-145) 02/18/19 06:10 Potassium 3.7 mmol/L (3.5-5.1) 02/18/19 06:10 Chloride 103 mmol/L (98-107) 02/18/19 06:10 Carbon Dioxide 28 mmol/L (21-32) 02/18/19 06:10 Anion Gap 8 MMOL/L (8-16) 02/18/19 06:10 BUN 14.4 mg/dL (7-18) 02/18/19 06:10 Creatinine 1.0 mg/dL (0.55-1.3) 02/18/19 06:10 Random Glucose 88 mg/dL (74-106) 02/18/19 06:10 Calcium 8.9 mg/dL (8.5-10.1) 02/18/19 06:10 Total Bilirubin 0.7 mg/dL (0.2-1) 02/16/19 06:00 AST 21 U/L (15-37) 02/16/19 06:00 ALT 24 U/L (13-61) 02/16/19 06:00 Alkaline Phosphatase 58 U/L (45-117) 02/16/19 06:00 Total Protein 6.4 g/dl (6.4-8.2) 02/16/19 06:00 Albumin 2.5 g/dl (3.4-5.0) L 02/16/19 06:00 CARDIAC ENZYMES Creatine Kinase 128 U/L (26-192) 02/14/19 16:34 Troponin I < 0.02 ng/ml (0.00-0.05) 02/14/19 16:34 Assessment/Plan 73 yo F with PMHx of CHF (lasix 40 bid), Afib on xarelto, CAD with cardiac cath (no stents), b/l chronic venous stasis, hypothyroidism, DM, urinary incontinence , BIBA for altered mental status, after she was found on the floor by the daughter. Per daughter, patient's last known well was around 10:30am prior to admission, when she was using her nebulizer treatment. Around 2:30 PM when the daughter returned, she found the pt on the floor covered in urine and feces and naked from waist down. Pt was reported to be confused and oriented to only self. Pt was also noted to have a temp of 103, tachycardia and elevated BP to 180s (daughter is a PT). Head CT reports indicate no acute patholgoy (though ER note indicated basal ganglia infarct per radiology, MRI reported below indicates this is chronic), chronic microvascular ischemic changes. CT of thoracic and cervical spine indicate no acute pathology. Carotid doppler completed, mild intimal thickening at the common carotid bifurcation bilaterally without significant stenosis. She described falling on her urine and hitting her forehead against a hard surface, then passing out for an unknown period of time. She denies seizures, or chest pain before or during the fall. She also denied fever and diarrhea. She acknowledges urinary incontinence and suprapubic pain. Per pt's daughter, pt is non compliant at baseline intermittently takes the lasix prescribed (40bid, 40mg daily in chart), does not check BP, do daily weights or comply with salt restricted diet. Per pulm last visit, did not think she had COPD, rather possible PATRICIA. Pt yet to get the sleep study done. PT BUN/Cr improved, WBC improved. Lactic acid elevated on admission at 2.2, decreased to 1.5. Pt LDL 97. Pt started on statin 40mg daily , aspirin 81mg daily, and xarelto daily. Brain MRI completed, with no acute pathology, basal ganglia infarct is chronic. Lower extremity duplex completed, abnormal blood flow right greater than left. Pt negative for DVT. Pt was recently discharged 02/05/19 after being treated for Klebsiella UTI with zosyn and acute CHF exacerbation. Maintain blood pressure less than 140/90 for now, prefer < 130/80 as outpatient. Informed her importance of tight blood pressure control andsecondary prevention of CVA. She is on aspirin for small vessel disease along with Xarelto to prevent cardioembolic secondary to atrial fibrillation. Physical therapy as tolerated, fall precautions. Medication compliance extremely important and discussed with patient. Neurologically, patient was complaining of a headache and therefore I had started her on Tylenol which she has found very helpful. I also discussed with regional marketing director regarding her blood pressures which have been slightly elevated and we discussed trying to reduce which may also improve her headaches.
[2019-02-19] MEDS: ASPIRIN COATED 81 MG TABLET.EC PO SCH (09:41)
[2019-02-19] MEDS: amLODIPine BESYLATE 10 MG TABLET (FP) PO SCH (09:41)
[2019-02-19] MEDS: LACTOBACILLUS ACIDOPHILUS 1 TABLET PO SCH (09:41)
[2019-02-19] MEDS: FERROUS SO4 325 MG TABLET (FP) PO SCH ×2 (09:41→22:48)
--- NOTE | 2019-02-19 09:45 | PN ---
Progress Note, Physician Chief Complaint: Pt OOB in chair; no chest pain or dyspnea. History of Present Illness: 73-year-old black female with past medical history of mildly reduced systolic LVEF/diastoic CHF on 40 mg of Lasix BID, lisinopril, spironolactone,, atrial fibrillation on Xarelto, CAD, bilateral chronic venous stasis (s/p vascular procedures by Dr. Dario Ramirez), hypothyroidism, diabetes, urinary incontinence, morbid obesity,. Presents to the emergency department after being found down by her daughter. Patient's daughter reports that she left home at 10:30 AM this morning, only to return to find her mother on the ground at 2:30 PM. Patient was awake but lethargic. The patient's daughter reports that she often skips her medications, most frequently Lasix as she does not want to go to the bathroom. In addition, the patient's daughter also reports frequent dietary indiscretion and that patient eats [employer] frequently. Pt says she was getting ready to go to work in the morning. She had come out of the bathroom and was seated in a chair to get dressed. When she got up, she fell forward, remembers hitting her head, but nothing afterward until her daughter found her a few hours later. She denies prior hx of syncope. Pt was noted to have a temperature of 104R in the ER, with warm, erythematous RLE. - Current Medication List Current Medications: Active Medications Acetaminophen (Tylenol -) 650 mg PO Q6H PRN PRN Reason: HEADACHE Last Admin: 02/18/19 15:12 Dose: 650 mg Albuterol Sulfate (Ventolin Hfa Inhaler -) 2 puff IH Q6H PRN PRN Reason: SHORT OF BREATH/WHEEZING Amlodipine Besylate (Norvasc -) 10 mg PO DAILY [facility] Last Admin: 02/18/19 11:43 Dose: 10 mg Aspirin (Ecotrin -) 81 mg PO DAILY [facility] Last Admin: 02/18/19 11:44 Dose: 81 mg Atorvastatin Calcium (Lipitor -) 40 mg PO HS [facility] Last Admin: 02/18/19 22:03 Dose: 40 mg Ferrous Sulfate (Feosol -) 325 mg PO BID [facility] Last Admin: 02/18/19 22:04 Dose: 325 mg Furosemide (Lasix -) 40 mg PO DAILY [facility] Last Admin: 02/15/19 09:20 Dose: 40 mg Piperacillin Sod/Tazobactam (Sod 3.375 gm/ Dextrose) 50 mls @ 100 mls/hr IVPB Q8H-IV [facility]; Protocol Last Admin: 02/19/19 02:31 Dose: 100 mls/hr Insulin Aspart (Novolog Vial Sliding Scale -) 1 vial SQ ACHS [facility]; Protocol Last Admin: 02/19/19 06:22 Dose: Not Given Ipratropium [place] (Atrovent 0.02% Nebulizer -) 1 amp NEB RQID [facility] Last Admin: 02/19/19 08:28 Dose: 1 amp Lactobacillus Acidophilus (Bacid -) 1 tab PO DAILY [facility] Last Admin: 02/18/19 11:43 Dose: 1 tab Levothyroxine Sodium (Synthroid -) 125 mcg PO DAILY@0700 [facility] Last Admin: 02/19/19 06:23 Dose: 125 mcg Metoprolol Succinate (Toprol Xl -) 100 mg PO DAILY [facility] Last Admin: 02/18/19 11:44 Dose: 100 mg Rivaroxaban (Xarelto) 20 mg PO HS [facility] Last Admin: 02/18/19 22:04 Dose: 20 mg Senna (Senna -) 1 tab PO HS [facility] Last Admin: 02/18/19 22:03 Dose: 1 tab - Objective Vital Signs: Vital Signs Temperature 98 F 02/18/19 22:00 Pulse Rate 85 02/18/19 22:00 Respiratory Rate 18 02/18/19 22:00 Blood Pressure 159/102 H 02/19/19 06:00 O2 Sat by Pulse Oximetry (%) 98 02/18/19 21:00 Constitutional: Yes: Obese Eyes: Yes: WNL HENT: Yes: WNL Neck: Yes: WNL Cardiovascular: Yes: Pulse Irregular, S1 (varies in intensity), S2 Respiratory: Yes: Regular Gastrointestinal: Yes: Abdomen, Obese ...Rectal Exam: Yes: Deferred Genitourinary: No: Anuria Breast(s): Yes: WNL Musculoskeletal: Yes: Muscle Weakness Extremities: Yes: Cool Edema: Yes Edema: LLE: 1+, RLE: 1+ Peripheral Pulses WNL: Yes Integumentary: Yes: Erythema, Venous Stasis Changes Wound/Incision: Yes: Other (pressure stockings) Neurological: Yes: Alert, Oriented, Weakness Psychiatric: Yes: WNL Labs: CBC, BMP 02/19/19 05:35 02/19/19 05:35 INR, PTT INR 1.79 (0.83-1.09) H 02/14/19 16:34 Abnormal Lab Results 02/20/19 02/20/19 02/20/19 05:57 05:57 05:57 RBC 3.54 L Hgb 10.6 L RDW 16.1 H Monocytes % 11.7 H ESR 87 H Anion Gap 6 L Albumin 2.5 L - ....Imaging Chest X-ray: Image Reviewed EKG: Image Reviewed Other: Image Reviewed Problem List - Problems (1) Hyperlipidemia Assessment/Plan: LDL cholesterol 96 mg/dL. Now on atorvastatin 40 mg daily. Code(s): E78.5 - HYPERLIPIDEMIA, UNSPECIFIED (2) Syncope Code(s): R55 - SYNCOPE AND COLLAPSE (3) UTI (urinary tract infection) Assessment/Plan: On antibiotics per ID. Code(s): N39.0 - URINARY TRACT INFECTION, SITE NOT SPECIFIED Qualifiers: Urinary tract infection type: site unspecified Hematuria presence: without hematuria Qualified Code(s): N39.0 - Urinary tract infection, site not specified (4) Acute on chronic systolic and diastolic heart failure, NYHA class 2 Assessment/Plan: see under "Sepsis". Code(s): I50.43 - ACUTE ON CHRONIC COMBINED SYSTOLIC AND DIASTOLIC HRT FAIL (5) Afib Assessment/Plan: On metoprolol ER for HR control. On rivaroxaban for anticoagulation (hit head after fall: no bleed or infarct). Code(s): I48.91 - UNSPECIFIED ATRIAL FIBRILLATION Qualifiers: Atrial fibrillation type: other persistent Qualified Code(s): I48.19 - Other persistent atrial fibrillation (6) Cellulitis Assessment/Plan: on antibiotics per ID. Code(s): L03.90 - CELLULITIS, UNSPECIFIED Qualifiers: Site of cellulitis: extremity Site of cellulitis of extremity: lower extremity Laterality: left Qualified Code(s): L03.116 - Cellulitis of left lower limb (7) Morbid obesity Code(s): E66.01 - MORBID (SEVERE) OBESITY DUE TO EXCESS CALORIES (8) HTN (hypertension) Assessment/Plan: Discussed pt with neurologist. BP has been elevated lately. Restarted lisinopril 5 mg daily and sprionolactone 25 mg daily (increase doses gradually as tolerated by BP, BUN/Cr, electrolytes); also on metoprolol, furosemide, and amlodipine. Code(s): I10 - ESSENTIAL (PRIMARY) HYPERTENSION Qualifiers: Hypertension type: essential hypertension Qualified Code(s): I10 - Essential (primary) hypertension (9) Hypothyroid Code(s): E03.9 - HYPOTHYROIDISM, UNSPECIFIED Qualifiers: Hypothyroidism type: unspecified Qualified Code(s): E03.9 - Hypothyroidism , unspecified (10) Lymphedema of both lower extremities Code(s): I89.0 - LYMPHEDEMA, NOT ELSEWHERE CLASSIFIED (11) Sepsis Assessment/Plan: Cellulitis of right LE; ? UTI. On antibiotics per ID. ACEI and spironolactone restarted; also on metoprolol, furosemide, and amlodipine. Sepsis with high fever-->IVF (mild congestion on CXR-->now clear; no JVD or dyspnea; f/u BUn/Cr, electrolytes, daily weight, Is and Os, clinical response). Code(s): A41.9 - SEPSIS, UNSPECIFIED ORGANISM Qualifiers: Sepsis type: sepsis due to unspecified organism Sepsis acute organ dysfunction status: with acute organ dysfunction Severe sepsis acute organ dysfunction type: acute respiratory failure Acute respiratory failure type: unspecified Severe sepsis shock status: without septic shock Qualified Code( s): A41.9 - Sepsis, unspecified organism; R65.20 - Severe sepsis without septic shock; J96.00 - Acute respiratory failure, unspecified whether with hypoxia or hypercapnia
[2019-02-19] MEDS: SPIRONOLACTONE 25 MG TABLET (FP) PO SCH (10:11)
[2019-02-19] MEDS: LISINOPRIL 5 MG TABLET (FP) PO SCH (10:11)
--- NOTE | 2019-02-19 10:16 | PN ---
Progress Note (short form) - Note Progress Note: Hospitalist Medicine Tired, but in good spirits. "The infection has taken the life out of me." Emotional support given Vitals 02/18/19 22:00 Temperature 98 F Respiratory 18 Rate Blood Pressure 155/82 Physical Exam general: resting in bed, in NAD HEENT: NCAT, PERRLA neck: supple cardio: irreg irreg. no r/m/g. pulm: CTA b/l. no crackles abdomen: obese, non distended. mild suprapubic tenderness LE: 1+ pitting edema b/l. +chronic venous changes. +improved RLE erythema Laboratory Tests 02/19/19 02/19/19 05:35 05:35 WBC 7.1 Hgb 11.2 Hct 34.3 Plt Count 168 Sodium 140 Potassium 3.9 Chloride 105 Carbon Dioxide 28 BUN 12.1 Creatinine 1.0 Random Glucose 100 Microbiology 02/14/19 17:14 Urine - Urine Clean Catch Urine Culture - Final Escherichia Coli Vr Ec Faecium 02/14/19 16:34 Blood - Peripheral Venous Blood Culture - Preliminary NO GROWTH OBTAINED AFTER 96 HOURS, INCUBATION TO CONTINUE FOR 1 DAYS. 02/14/19 16:34 Blood - Peripheral Venous Blood Culture - Preliminary NO GROWTH OBTAINED AFTER 96 HOURS, INCUBATION TO CONTINUE FOR 1 DAYS. Imaging 02/14/19: CXR: large heart, congestive changes 02/14/19: CT t-spine, CT c-spine 02/14/19: CT head: moderate vol loss, ventricular dilation, moderate chronic microvascular ischemic changes. no mass lesion, gross acute infarct or intracranial hemorrhage are identified. no fracture or subluxation are identified. intervertebral disc spaces are intact. no compression fx 02/15/19: Renal sono: 2 right exophytic simple cysts with largest measuring 4.7x3.8cm. both kidneys are unremarkable no stones or hydro. 02/15/19: carotid doppler: mild intimal thickening at the common carotid bifurcation, bilaterally w/o evidence of hemodynamically sig stenosis bilaterally 02/16/19: CXR: congestive changes have diminished slightly since previous exam 02/16/19 MRI brain w/o contrast: no evidence of acute or subacute infarction. brainstem gliosis. supratentorial chronic white matter microangiopathic ischemic changes. chronic L basal ganglia infarct. 02/16/19: Art duplex LE: abnormal flow b/l R>L. suggesting inflow pathology. on R side abnormal monophasic flow is documented throughout these vessels, on L side largely biphasic flow in common and superficial femoral arteries. monophasic flow in popliteal and posterior tibial arteries. inflow pathology 02/17/19: aorta runoff: high grade stenosis IRENE, which is patent proximally then diminutive in its mid aspect followed by occlusion of the distal IRENE and dorsalis pedis a. trace L sided pl eff, with overlying linear atelectasis scar. cardiomegaly, bilteral renal cysts, marked adrenal hyperplasia, b/l ing lymphadenopathy, subcutaneous edema in pelvis, thighs Assessment/Plan 73 y/o F with systolic CHF, CAD, afib on xarelto, hypothyroidism, and chronic venous stasis dermatitis and swelling presents who presented with severe sepsis , hypertensive emergency, and subacute stroke. #Severe sepsis 2/2 UTI, vs. LE cellulitis -was on zosyn (02/15-02/19); growing VRE in Ucx, changed to Linezolid (02/19) -lactic acidosis resolved -iso precautions -f/u repeat ESR -UA (+), also w/ erythema LE, chronic changes -off IVF -ID on board: Dr. Escoto #R/o CVA -initial Head CT report showed subtle hypodensity in left basal ganglia concern for a subacute lacunar infarct -brain MRI noted above ; no acute infarct -c/w asa, statin - atorva 40mg -passed s/s -neuro consulted: Dr. Blevins -maintain controlled BP < 130/80 -PT #Acute renal failure - resolved -restarted on lisinopril, and aldactone by cardio -renal sono: without evidence of acute dz, renal cysts -off IVF -nephro consult: Dr. Onofre #hypertensive emergency with end organ damage (GEMMA and stroke) - resolved -c/w amlodipine -d/c lasix for now -restarted on lisinopril, aldactone by cardio #Afib -rate controlled -c/w metoprolol -on xarelto #hx COPD -nebs PRN -not in exacerbation #CHF-systolic function, mildly reduced -off IVF -lasix is still held -Cardio: Dr. Burleson #CAD -c/w high intensity statin aspirin and BB #Hyperglycemia likely secondary to stress/infection -not a diabetic-HbA1C 5.5% done earlier this month -ISS, BGM ACHS #Chronic Venous stasis dermatitis and edema -vasc consulted: Dr. Ramirez -without acute change; however based on art duplex, aorta runoff, w/ decreased flow. -will need outpt f/u #Hypothyroidism -C/w synthroid -TSH WNL #F/E/N off IVF, avoid overload continue to follow lytes na controlled diet #PPX DVT: on xarelto #Dispo monitoring on tele on IV abx, w/ VRE will need f/u with Dr. Ramirez as outpatient <Leigh Caceres - Last Filed: 02/19/19 15:41> - Note Progress Note: Seen and examined; please refer to resident note for further historical information. I agree with the aforementioned assessment and plan and historical information aside from as supplemented by myself. Independently verified all johns exam findings and diagnostics. I discussed the case at length with the resident and agree with the plan as outlined. Agree with above subjective information 10 sys ROS done and negative aside from HPI VS, labs, imaging reviewed NAD AAO resting in bed; on O2. Mentation improved, not lethargic, some minor confusion regarding date. NC AT EOMI PERRLA HR wnl, s1/2+; chronic dependent edema in apparent NSR NT ND +BS CN2-12 wnl, no fnd Normal mood, appropriate behavior Assessment and plan: Elucidating abx and then can complete DC. Need to d/w ID and CM. Stable otherwise. Probelms include: -AMS 2/2 Toxic metabolic encephalopathy (UTI +/- HTN encephalopathy) -Sepsis 2/2 UTI secondary to E. coli, VRE UTI (Also considering potential cellulitis per ID given risks with underlying zascular disease and potential hypoperfusion. Will consider trending inflammatory markers and discuss with their service to ensure proper coverage and minimize risk of bounceback). -HTN Emergency -Chronic left basal ganglia ischemic infarct -GEMMA on CKD (Resolved; on home meds which do have some nephrotoxic effect. Ensuring continued excellent renal function prior to discharge) -Chronic CAD with no acute symptoms, monitor. No issues on telemetry. ASA, MS , Atorva -Afib with elevated CV2 score, on home Xarelto and rate controlled. Med adjustments per Dr. Burleson. -Chronic HFrEF with ongoing NYHA I-II symptoms, at baseline, resuming home aldactone and lasix when clinically appropriate. -COPD (Class unknown); continue home meds and FU with pulm as OP for PFTs. Appreciate pulmonary input. -Chronic venous stasis with underlying PAD; diagnostics as indicated in resident note. Will followup with vascular as OP. -Hx Hypothyroidism; clinically stable and can FU TSH as OP to adjust LT4 dose. -Chronic Anemia, stable; 12/2018 iron studies reviewed. Can go ahead and monitor CBC with respect to guideline-based XF thresholds. -Hyperglycemia without DM (resolved) -Morbid Obesity DC planning per subspecialty clearance. <Killian Baer - Last Filed: 02/21/19 03:38>
[2019-02-19] MEDS ORDERED: LINEZOLID 600 MG PREMIX BAG 600 MG in PREMIX 300 IVPB SCH (14:30)
[2019-02-19] MEDS ORDERED: LINEZOLID 600 MG PREMIX BAG 600 MG/300 ML BAG IVPB SCH ×2 (14:30→14:45)
--- NOTE | 2019-02-19 14:51 | PN ---
Progress Note, Physician History of Present Illness: Pt seen and examined at bedside. She is awake and alert. She denies shortness of breath. - Current Medication List Current Medications: Active Medications Acetaminophen (Tylenol -) 650 mg PO Q6H PRN PRN Reason: HEADACHE Last Admin: 02/18/19 15:12 Dose: 650 mg Albuterol Sulfate (Ventolin Hfa Inhaler -) 2 puff IH Q6H PRN PRN Reason: SHORT OF BREATH/WHEEZING Amlodipine Besylate (Norvasc -) 10 mg PO DAILY [facility] Last Admin: 02/19/19 09:41 Dose: 10 mg Aspirin (Ecotrin -) 81 mg PO DAILY [facility] Last Admin: 02/19/19 09:41 Dose: 81 mg Atorvastatin Calcium (Lipitor -) 40 mg PO HS [facility] Last Admin: 02/18/19 22:03 Dose: 40 mg Ferrous Sulfate (Feosol -) 325 mg PO BID [facility] Last Admin: 02/19/19 09:41 Dose: 325 mg Furosemide (Lasix -) 40 mg PO DAILY [facility] Last Admin: 02/15/19 09:20 Dose: 40 mg Piperacillin Sod/Tazobactam (Sod 3.375 gm/ Dextrose) 50 mls @ 100 mls/hr IVPB Q8H-IV [facility]; Protocol Last Admin: 02/19/19 09:40 Dose: 100 mls/hr Linezolid (Zyvox 600 Mg Premix Bag (Restricted To Id) -) 600 mg in 300 mls @ 300 mls/hr IVPB Q12H [facility]; Protocol Stop: 02/19/19 15:29 Linezolid (Zyvox 600 Mg Premix Bag (Restricted To Id) -) 600 mg in 300 mls @ 300 mls/hr IVPB Q12H [facility]; Protocol Insulin Aspart (Novolog Vial Sliding Scale -) 1 vial SQ ACHS [facility]; Protocol Last Admin: 02/19/19 11:18 Dose: Not Given Ipratropium [place] (Atrovent 0.02% Nebulizer -) 1 amp NEB RQID [facility] Last Admin: 02/19/19 08:28 Dose: 1 amp Lactobacillus Acidophilus (Bacid -) 1 tab PO DAILY [facility] Last Admin: 02/19/19 09:41 Dose: 1 tab Levothyroxine Sodium (Synthroid -) 125 mcg PO DAILY@0700 [facility] Last Admin: 02/19/19 06:23 Dose: 125 mcg Lisinopril (Prinivil) 5 mg PO DAILY [facility] Last Admin: 02/19/19 10:11 Dose: 5 mg Metoprolol Succinate (Toprol Xl -) 100 mg PO DAILY [facility] Last Admin: 02/19/19 09:41 Dose: 100 mg Rivaroxaban (Xarelto) 20 mg PO HS [facility] Last Admin: 02/18/19 22:04 Dose: 20 mg Senna (Senna -) 1 tab PO HS [facility] Last Admin: 02/18/19 22:03 Dose: 1 tab Spironolactone (Aldactone -) 25 mg PO DAILY [facility] Last Admin: 02/19/19 10:11 Dose: 25 mg - Objective Vital Signs: Vital Signs Temperature 98.1 F 02/19/19 13:35 Pulse Rate 76 02/19/19 13:35 Respiratory Rate 18 02/19/19 13:35 Blood Pressure 114/68 02/19/19 13:35 O2 Sat by Pulse Oximetry (%) 98 02/19/19 09:00 Constitutional: Yes: Calm Eyes: Yes: Conjunctiva Clear HENT: Yes: Atraumatic Neck: Yes: Supple Cardiovascular: Yes: Regular Rate and Rhythm, S1, S2 Respiratory: Yes: CTA Bilaterally Gastrointestinal: Yes: Soft Genitourinary: Yes: WNL Musculoskeletal: Yes: WNL Edema: Yes Edema: LLE: 2+, RLE: 2+ Neurological: Yes: Oriented Psychiatric: Yes: Oriented Labs: CBC, BMP 02/19/19 05:35 02/19/19 05:35 INR, PTT INR 1.79 (0.83-1.09) H 02/14/19 16:34 Problem List - Problems (1) Altered mental status Code(s): R41.82 - ALTERED MENTAL STATUS, UNSPECIFIED Qualifiers: Altered mental status type: disorientation Qualified Code(s): R41.0 - Disorientation, unspecified (2) Basal ganglia infarction Code(s): I63.9 - CEREBRAL INFARCTION, UNSPECIFIED (3) CVA (cerebral vascular accident) Code(s): I63.9 - CEREBRAL INFARCTION, UNSPECIFIED (4) Sepsis Code(s): A41.9 - SEPSIS, UNSPECIFIED ORGANISM Qualifiers: Sepsis type: sepsis due to unspecified organism Sepsis acute organ dysfunction status: with acute organ dysfunction Severe sepsis acute organ dysfunction type: acute respiratory failure Acute respiratory failure type: unspecified Severe sepsis shock status: without septic shock Qualified Code( s): A41.9 - Sepsis, unspecified organism; R65.20 - Severe sepsis without septic shock; J96.00 - Acute respiratory failure, unspecified whether with hypoxia or hypercapnia Assessment/Plan Current Medications Generic Name Dose Route Start Last Admin Trade Name Freq PRN Reason Stop Dose Admin Acetaminophen 650 mg 02/18/19 09:18 02/18/19 15:12 Tylenol - PO 650 mg Q6H PRN Administration HEADACHE Albuterol Sulfate 2 puff 02/14/19 22:28 Ventolin Hfa Inhaler - IH Q6H PRN SHORT OF BREATH/WHEEZING Amlodipine Besylate 10 mg 02/15/19 11:00 02/19/19 09:41 Norvasc - PO 10 mg DAILY [facility] Administration Aspirin 81 mg 02/15/19 10:00 02/19/19 09:41 Ecotrin - PO 81 mg DAILY [facility] Administration Atorvastatin Calcium 40 mg 02/15/19 22:00 02/18/19 22:03 Lipitor - PO 40 mg HS [facility] Administration Ferrous Sulfate 325 mg 02/15/19 10:00 02/19/19 09:41 Feosol - PO 325 mg BID [facility] Administration Furosemide 40 mg 02/15/19 10:00 02/15/19 09:20 Lasix - PO 40 mg DAILY [facility] Administration Piperacillin Sod/Tazobactam 50 mls @ 100 mls/hr 02/15/19 18:00 02/19/19 09:40 Sod 3.375 gm/ Dextrose IVPB 100 mls/hr Q8H-IV [facility] Administration Protocol Linezolid 600 mg in 300 mls @ 300 mls/hr 02/19/19 14:30 Zyvox 600 Mg Premix Bag (Restricted To Id) - IVPB 02/19/19 15:29 Q12H [facility] Protocol Linezolid 600 mg in 300 mls @ 300 mls/hr 02/19/19 14:45 Zyvox 600 Mg Premix Bag (Restricted To Id) - IVPB Q12H [facility] Protocol Insulin Aspart 1 vial 02/15/19 07:00 02/19/19 11:18 Novolog Vial Sliding Scale - SQ Not Given ACHS [facility] Protocol Ipratropium [place] 1 amp 02/15/19 08:00 02/19/19 08:28 Atrovent 0.02% Nebulizer - NEB 1 amp RQID [facility] Administration Lactobacillus Acidophilus 1 tab 02/15/19 10:00 02/19/19 09:41 Bacid - PO 1 tab DAILY [facility] Administration Levothyroxine Sodium 125 mcg 02/15/19 07:00 02/19/19 06:23 Synthroid - PO 125 mcg DAILY@0700 [facility] Administration Lisinopril 5 mg 02/19/19 10:00 02/19/19 10:11 Prinivil PO 5 mg DAILY [facility] Administration Metoprolol Succinate 100 mg 02/14/19 22:28 02/19/19 09:41 Toprol Xl - PO 100 mg DAILY [facility] Administration Rivaroxaban 20 mg 02/14/19 22:28 02/18/19 22:04 Xarelto PO 20 mg HS [facility] Administration Senna 1 tab 02/17/19 23:00 02/18/19 22:03 Senna - PO 1 tab HS [facility] Administration Spironolactone 25 mg 02/19/19 10:00 02/19/19 10:11 Aldactone - PO 25 mg DAILY [facility] Administration Impression 1. GEMMA 2. sepsis 3. htn 4. cva 5. chf 6. hld 7. renal cysts Plan pt stable off of fluids - renal function improving - cont diuretics - abx per medical team - avoid nephrotoxins
--- NOTE | 2019-02-19 16:45 | PN ---
Progress Note, Physician - Current Medication List Current Medications: Active Medications Acetaminophen (Tylenol -) 650 mg PO Q6H PRN PRN Reason: HEADACHE Last Admin: 02/18/19 15:12 Dose: 650 mg Albuterol Sulfate (Ventolin Hfa Inhaler -) 2 puff IH Q6H PRN PRN Reason: SHORT OF BREATH/WHEEZING Amlodipine Besylate (Norvasc -) 10 mg PO DAILY [facility] Last Admin: 02/19/19 09:41 Dose: 10 mg Aspirin (Ecotrin -) 81 mg PO DAILY [facility] Last Admin: 02/19/19 09:41 Dose: 81 mg Atorvastatin Calcium (Lipitor -) 40 mg PO HS [facility] Last Admin: 02/18/19 22:03 Dose: 40 mg Ferrous Sulfate (Feosol -) 325 mg PO BID [facility] Last Admin: 02/19/19 09:41 Dose: 325 mg Furosemide (Lasix -) 40 mg PO DAILY [facility] Last Admin: 02/15/19 09:20 Dose: 40 mg Piperacillin Sod/Tazobactam (Sod 3.375 gm/ Dextrose) 50 mls @ 100 mls/hr IVPB Q8H-IV [facility]; Protocol Last Admin: 02/19/19 09:40 Dose: 100 mls/hr Linezolid (Zyvox 600 Mg Premix Bag (Restricted To Id) -) 600 mg in 300 mls @ 300 mls/hr IVPB Q12H [facility]; Protocol Insulin Aspart (Novolog Vial Sliding Scale -) 1 vial SQ ACHS [facility]; Protocol Last Admin: 02/19/19 16:15 Dose: Not Given Ipratropium [place] (Atrovent 0.02% Nebulizer -) 1 amp NEB RQID [facility] Last Admin: 02/19/19 15:38 Dose: Not Given Lactobacillus Acidophilus (Bacid -) 1 tab PO DAILY [facility] Last Admin: 02/19/19 09:41 Dose: 1 tab Levothyroxine Sodium (Synthroid -) 125 mcg PO DAILY@0700 [facility] Last Admin: 02/19/19 06:23 Dose: 125 mcg Lisinopril (Prinivil) 5 mg PO DAILY [facility] Last Admin: 02/19/19 10:11 Dose: 5 mg Metoprolol Succinate (Toprol Xl -) 100 mg PO DAILY [facility] Last Admin: 02/19/19 09:41 Dose: 100 mg Rivaroxaban (Xarelto) 20 mg PO HS [facility] Last Admin: 02/18/19 22:04 Dose: 20 mg Senna (Senna -) 1 tab PO HS [facility] Last Admin: 02/18/19 22:03 Dose: 1 tab Spironolactone (Aldactone -) 25 mg PO DAILY [facility] Last Admin: 02/19/19 10:11 Dose: 25 mg - Objective Vital Signs: Vital Signs Temperature 98.1 F 02/19/19 14:00 Pulse Rate 76 02/19/19 14:00 Respiratory Rate 18 02/19/19 14:00 Blood Pressure 114/68 02/19/19 14:00 O2 Sat by Pulse Oximetry (%) 98 02/19/19 09:00 Labs: CBC, BMP 02/19/19 05:35 02/19/19 05:35 INR, PTT INR 1.79 (0.83-1.09) H 02/14/19 16:34
[2019-02-19] MEDS: RIVAROXABAN 20 MG TABLET PO SCH (22:48)
[2019-02-19] MEDS: SENNOSIDES 8.6MG TABLET (FP) PO SCH (22:49)
[2019-02-19] MEDS: ATORVASTATIN CA 40 MG TABLET (FP) PO SCH (22:49)
[2019-02-20] MEDS: PIPERACILLIN/TAZOB 3.375 GM 3.375 GM in DEXTROSE 5%-WATER - 50 ML IVPB SCH ×2 (02:58→11:44)
[2019-02-20] MEDS: INSULIN SLIDING SCALE (NOVOLOG) 1 VIAL SQ SCH ×4 (06:47→22:18)
[2019-02-20] MEDS: LEVOTHYROXINE NA 125 MCG TABLET (FP) PO SCH (06:47)
[2019-02-20 07:01] LABS: BASO % 0.7 % (0-2.0); EOS % 1.6 % (0-4.5); HEMATOCRIT 32.5 % (32.4-45.2); HEMOGLOBIN 10.6 GM/dL (10.7-15.3); LYMPH % 20.1 % (8-40); MCH 29.9 pg (25.7-33.7); MCHC 32.5 g/dl (32.0-36.0); MEAN CELL VOLUME 91.9 fl (80-96); MEAN PLT VOLUME 9.2 fl (7.5-11.1); MONO % 11.7 % (3.8-10.2); NEUT % 65.9 % (42.8-82.8); PLATELET COUNT 194 K/MM3 (134-434); RBC 3.54 M/mm3 (3.60-5.2); RDW 16.1 % (11.6-15.6); WHITE BLOOD COUNT 7.8 K/mm3 (4.0-10.0)
[2019-02-20 07:35] LABS: ALBUMIN 2.5 g/dl (3.4-5.0); BILIRUBIN,TOTAL 0.6 mg/dL (0.2-1); BLOOD UREA NITROGEN 11.3 mg/dL (7-18); CALCIUM 9.2 mg/dL (8.5-10.1); CREATININE 0.9 mg/dL (0.55-1.3); POTASSIUM 4.3 mmol/L (3.5-5.1); TOT PROT 6.6 g/dl (6.4-8.2)
[2019-02-20] MEDS: IPRATROPIUM BR 0.02% 0.5 MG/2.5 ML VIAL.NEB. NEB SCH ×4 (08:35→20:38)
--- NOTE | 2019-02-20 08:44 | PN ---
Progress Note (short form) - Note Progress Note: Neurology - Admission Chief Complaint: AMS x1 day History of Present Illness: 73 yo F with PMHx of CHF (lasix 40 bid), Afib on xarelto, CAD with cardiac cath (no stents), b/l chronic venous stasis, hypothyroidism, DM, urinary incontinence , BIBA for altered mental status, after she was found on the floor by the daughter. Per daughter, patient's last known well was around 10:30am prior to admission, when she was using her nebulizer treatment. Around 2:30 PM when the daughter returned, she found the pt on the floor covered in urine and feces and naked from waist down. Pt was reported to be confused and oriented to only self. Pt was also noted to have a temp of 103, tachycardia and elevated BP to 180s (daughter is a PT). Head CT reports indicate no acute patholgoy (though ER note indicated basal ganglia infarct per radiology, MRI reported below indicates this is chronic), chronic microvascular ischemic changes. CT of thoracic and cervical spine indicate no acute pathology. Carotid doppler completed, mild intimal thickening at the common carotid bifurcation bilaterally without significant stenosis. She described falling on her urine and hitting her forehead against a hard surface, then passing out for an unknown period of time. She denies seizures, or chest pain before or during the fall. She also denied fever and diarrhea. She acknowledges urinary incontinence and suprapubic pain. Per pt's daughter, pt is non compliant at baseline intermittently takes the lasix prescribed (40bid, 40mg daily in chart), does not check BP, do daily weights or comply with salt restricted diet. Per pulm last visit, did not think she had COPD, rather possible PATRICIA. Pt yet to get the sleep study done. PT BUN/Cr improved, WBC improved. Lactic acid elevated on admission at 2.2, improved. Pt LDL 97. Pt started on statin 40mg daily, aspirin 81mg daily (was not on at home), and xarelto daily. Brain MRI completed , with no acute pathology, basal ganglia infarct is chronic. Lower extremity duplex completed, abnormal blood flow right greater than left. Pt negative for DVT. Pt was recently discharged 02/05/19 after being treated for Klebsiella UTI with zosyn and acute CHF exacerbation. Neurologically, patient was complaining of a headache and therefore I had started her on Tylenol which she has found very helpful. I also discussed with crossbow maker regarding her blood pressures which have been slightly elevated and we discussed trying to reduce which may also improve her headaches. Is getting treatment for underlying infection, ID note reviewed, neurologically stable. Active Medications Acetaminophen (Tylenol -) 650 mg PO Q6H PRN PRN Reason: HEADACHE Last Admin: 02/18/19 15:12 Dose: 650 mg Albuterol Sulfate (Ventolin Hfa Inhaler -) 2 puff IH Q6H PRN PRN Reason: SHORT OF BREATH/WHEEZING Amlodipine Besylate (Norvasc -) 10 mg PO DAILY [facility] Last Admin: 02/19/19 09:41 Dose: 10 mg Aspirin (Ecotrin -) 81 mg PO DAILY [facility] Last Admin: 02/19/19 09:41 Dose: 81 mg Atorvastatin Calcium (Lipitor -) 40 mg PO HS [facility] Last Admin: 02/19/19 22:49 Dose: 40 mg Ferrous Sulfate (Feosol -) 325 mg PO BID [facility] Last Admin: 02/19/19 22:48 Dose: 325 mg Furosemide (Lasix -) 40 mg PO DAILY [facility] Last Admin: 02/15/19 09:20 Dose: 40 mg Piperacillin Sod/Tazobactam (Sod 3.375 gm/ Dextrose) 50 mls @ 100 mls/hr IVPB Q8H-IV [facility]; Protocol Last Admin: 02/20/19 02:58 Dose: Not Given Linezolid (Zyvox 600 Mg Premix Bag (Restricted To Id) -) 600 mg in 300 mls @ 300 mls/hr IVPB Q12H [facility]; Protocol Insulin Aspart (Novolog Vial Sliding Scale -) 1 vial SQ ACHS [facility]; Protocol Last Admin: 02/20/19 06:47 Dose: Not Given Ipratropium [place] (Atrovent 0.02% Nebulizer -) 1 amp NEB RQID [facility] Last Admin: 02/20/19 08:35 Dose: 1 amp Lactobacillus Acidophilus (Bacid -) 1 tab PO DAILY [facility] Last Admin: 02/19/19 09:41 Dose: 1 tab Levothyroxine Sodium (Synthroid -) 125 mcg PO DAILY@0700 [facility] Last Admin: 02/20/19 06:47 Dose: 125 mcg Lisinopril (Prinivil) 5 mg PO DAILY [facility] Last Admin: 02/19/19 10:11 Dose: 5 mg Metoprolol Succinate (Toprol Xl -) 100 mg PO DAILY [facility] Last Admin: 02/19/19 09:41 Dose: 100 mg Rivaroxaban (Xarelto) 20 mg PO [facility] Last Admin: 02/19/19 22:48 Dose: 20 mg Senna (Senna -) 1 tab PO HS [facility] Last Admin: 02/19/19 22:49 Dose: 1 tab Spironolactone (Aldactone -) 25 mg PO DAILY [facility] Last Admin: 02/19/19 10:11 Dose: 25 mg Physical Examination Vital Signs: Vital Signs Period Temp Pulse Resp BP Sys/Ray Pulse Ox Last 24 Hr 97.5 F-98.1 F 73-77 18-22 114-155/68-97 95-98 Constitutional: Yes: Moderate Distress, Obese HENT: Yes: Other (bipap). No: Atraumatic (Forehead with laceration/bruise about 5cm, freash, not actively bleeding with swelling) Cardiovascular: Yes: Tachycardia, S1, S2. No: Murmur Respiratory: Yes: Wheezes Gastrointestinal: Yes: Tenderness (suprAPUBIC) Renal/: Yes: Incontinence Musculoskeletal: Yes: Joint Swelling (b/L KNEE SWELLING) Edema: LLE: 1+, RLE: 1+ Integumentary: Yes: Venous Stasis Changes Neurological: awake, alert, cranial nerves appear intact, moves all extremities equally, sensory intact, finger to nose normal Psychiatric: Yes: Alert, Oriented Labs: CBCD WBC 7.8 K/mm3 (4.0-10.0) 02/20/19 05:57 RBC 3.54 M/mm3 (3.60-5.2) L 02/20/19 05:57 Hgb 10.6 GM/dL (10.7-15.3) L 02/20/19 05:57 Hct 32.5 % (32.4-45.2) 02/20/19 05:57 MCV 91.9 fl (80-96) 02/20/19 05:57 MCHC 32.5 g/dl (32.0-36.0) 02/20/19 05:57 RDW 16.1 % (11.6-15.6) H 02/20/19 05:57 Plt Count 194 K/MM3 (134-434) 02/20/19 05:57 MPV 9.2 fl (7.5-11.1) 02/20/19 05:57 CMP Sodium 139 mmol/L (136-145) 02/20/19 05:57 Potassium 4.3 mmol/L (3.5-5.1) 02/20/19 05:57 Chloride 104 mmol/L (98-107) 02/20/19 05:57 Carbon Dioxide 29 mmol/L (21-32) 02/20/19 05:57 Anion Gap 6 MMOL/L (8-16) L 02/20/19 05:57 BUN 11.3 mg/dL (7-18) 02/20/19 05:57 Creatinine 0.9 mg/dL (0.55-1.3) 02/20/19 05:57 Random Glucose 87 mg/dL (74-106) 02/20/19 05:57 Calcium 9.2 mg/dL (8.5-10.1) 02/20/19 05:57 Total Bilirubin 0.6 mg/dL (0.2-1) 02/20/19 05:57 AST 19 U/L (15-37) 02/20/19 05:57 ALT 25 U/L (13-61) 02/20/19 05:57 Alkaline Phosphatase 93 U/L (45-117) 02/20/19 05:57 Total Protein 6.6 g/dl (6.4-8.2) 02/20/19 05:57 Albumin 2.5 g/dl (3.4-5.0) L 02/20/19 05:57 CARDIAC ENZYMES Creatine Kinase 128 U/L (26-192) 02/14/19 16:34 Troponin I < 0.02 ng/ml (0.00-0.05) 02/14/19 16:34 Assessment/Plan 73 yo F with PMHx of CHF (lasix 40 bid), Afib on xarelto, CAD with cardiac cath (no stents), b/l chronic venous stasis, hypothyroidism, DM, urinary incontinence , BIBA for altered mental status, after she was found on the floor by the daughter. Per daughter, patient's last known well was around 10:30am prior to admission, when she was using her nebulizer treatment. Around 2:30 PM when the daughter returned, she found the pt on the floor covered in urine and feces and naked from waist down. Pt was reported to be confused and oriented to only self. Pt was also noted to have a temp of 103, tachycardia and elevated BP to 180s (daughter is a PT). Head CT reports indicate no acute patholgoy (though ER note indicated basal ganglia infarct per radiology, MRI reported below indicates this is chronic), chronic microvascular ischemic changes. CT of thoracic and cervical spine indicate no acute pathology. Carotid doppler completed, mild intimal thickening at the common carotid bifurcation bilaterally without significant stenosis. She described falling on her urine and hitting her forehead against a hard surface, then passing out for an unknown period of time. She denies seizures, or chest pain before or during the fall. She also denied fever and diarrhea. She acknowledges urinary incontinence and suprapubic pain. Per pt's daughter, pt is non compliant at baseline intermittently takes the lasix prescribed (40bid, 40mg daily in chart), does not check BP, do daily weights or comply with salt restricted diet. Per pulm last visit, did not think she had COPD, rather possible PATRICIA. Pt yet to get the sleep study done. PT BUN/Cr improved, WBC improved. Lactic acid elevated on admission at 2.2, decreased to 1.5. Pt LDL 97. Pt started on statin 40mg daily , aspirin 81mg daily, and xarelto daily. Brain MRI completed, with no acute pathology, basal ganglia infarct is chronic. Lower extremity duplex completed, abnormal blood flow right greater than left. Pt negative for DVT. Pt was recently discharged 02/05/19 after being treated for Klebsiella UTI with zosyn and acute CHF exacerbation. Maintain blood pressure less than 140/90 for now, prefer < 130/80 as outpatient. Informed her importance of tight blood pressure control andsecondary prevention of CVA. She is on aspirin for small vessel disease along with Xarelto to prevent cardioembolic secondary to atrial fibrillation. Physical therapy as tolerated, fall precautions. Medication compliance extremely important and discussed with patient. Neurologically, patient was complaining of a headache and therefore I had started her on Tylenol which she has found very helpful. I also discussed with crossbow maker regarding her blood pressures which have been slightly elevated and we discussed trying to reduce which may also improve her headaches.Is getting treatment for underlying infection, ID note reviewed, neurologically stable.
[2019-02-20] MEDS ORDERED: PIPERACILLIN/TAZOBACTAM 3.375 GM VIAL IVPB ONE (10:21)
[2019-02-20] MEDS ORDERED: DEXTROSE 5%-WATER - 50 ML IVPB ONE (10:21)
[2019-02-20] MEDS: LACTOBACILLUS ACIDOPHILUS 1 TABLET PO SCH (10:57)
[2019-02-20] MEDS: ASPIRIN COATED 81 MG TABLET.EC PO SCH (10:57)
[2019-02-20] MEDS: SPIRONOLACTONE 25 MG TABLET (FP) PO SCH (10:57)
[2019-02-20] MEDS: FERROUS SO4 325 MG TABLET (FP) PO SCH ×2 (10:57→22:11)
[2019-02-20] MEDS: amLODIPine BESYLATE 10 MG TABLET (FP) PO SCH (10:58)
[2019-02-20] MEDS: LISINOPRIL 5 MG TABLET (FP) PO SCH (10:58)
--- NOTE | 2019-02-20 13:06 | PN ---
Progress Note, Physician History of Present Illness: patient stable headaches improved neuro on case leg has started to look better - Current Medication List Current Medications: Active Medications Acetaminophen (Tylenol -) 650 mg PO Q6H PRN PRN Reason: HEADACHE Last Admin: 02/18/19 15:12 Dose: 650 mg Albuterol Sulfate (Ventolin Hfa Inhaler -) 2 puff IH Q6H PRN PRN Reason: SHORT OF BREATH/WHEEZING Amlodipine Besylate (Norvasc -) 10 mg PO DAILY [facility]S [facility] Last Admin: 02/20/19 10:58 Dose: 10 mg Aspirin (Ecotrin -) 81 mg PO DAILY [facility] 234 B[facility]S AT [facility] Last Admin: 02/20/19 10:57 Dose: 81 mg Atorvastatin Calcium (Lipitor -) 40 mg PO HS [facility] 234 BEDS AT [facility] Last Admin: 02/19/19 22:49 Dose: 40 mg Ferrous Sulfate (Feosol -) 325 mg PO BID [facility] 234 BEDS AT [facility] Last Admin: 02/20/19 10:57 Dose: 325 mg Furosemide (Lasix -) 40 mg PO DAILY [facility] 234 B[facility]S AT [facility] Last Admin: 02/15/19 09:20 Dose: 40 mg Piperacillin Sod/Tazobactam (Sod 3.375 gm/ Dextrose) 50 mls @ 100 mls/hr IVPB Q8H-IV [facility] 234 BEDS AT THE [facility]; Protocol Last Admin: 02/20/19 11:44 Dose: 100 mls/hr Insulin Aspart (Novolog Vial Sliding Scale -) 1 vial SQ ACHS [facility] 234 BEDS AT [facility]; Protocol Last Admin: 02/20/19 10:59 Dose: Not Given Ipratropium [place] (Atrovent 0.02% Nebulizer -) 1 amp NEB RQID [facility] 234 BEDS AT [facility] Last Admin: 02/20/19 11:52 Dose: Not Given Lactobacillus Acidophilus (Bacid -) 1 tab PO DAILY [facility] 234 B[facility]S AT [facility] Last Admin: 02/20/19 10:57 Dose: 1 tab Levothyroxine Sodium (Synthroid -) 125 mcg PO DAILY@0700 [facility] 234 BEDS AT [facility] Last Admin: 02/20/19 06:47 Dose: 125 mcg Lisinopril (Prinivil) 5 mg PO DAILY [facility] 234 B[facility]S AT [facility] Last Admin: 02/20/19 10:58 Dose: 5 mg Metoprolol Succinate (Toprol Xl -) 100 mg PO DAILY [facility] 234 B[facility]S AT [facility] Last Admin: 02/20/19 10:58 Dose: 100 mg Rivaroxaban (Xarelto) 20 mg PO HS [facility] 234 BEDS AT [facility] Last Admin: 02/19/19 22:48 Dose: 20 mg Senna (Senna -) 1 tab PO HS [facility] 234 B[facility]S AT [facility] Last Admin: 02/19/19 22:49 Dose: 1 tab Spironolactone (Aldactone -) 25 mg PO DAILY [facility] 234 B[facility]S AT [facility] Last Admin: 02/20/19 10:57 Dose: 25 mg - Objective Vital Signs: Vital Signs Temperature 98.5 F 02/20/19 12:00 Pulse Rate 77 02/20/19 12:00 Respiratory Rate 19 02/20/19 12:00 Blood Pressure 134/67 02/20/19 12:00 O2 Sat by Pulse Oximetry (%) 95 02/20/19 12:37 Constitutional: Yes: No Distress, Calm Cardiovascular: Yes: S1, S2 Respiratory: Yes: Regular, CTA Bilaterally Gastrointestinal: Yes: Normal Bowel Sounds, Soft Musculoskeletal: Yes: Other Extremities: Yes: Erythema (improved), Other Neurological: Yes: Alert, Oriented Psychiatric: Yes: Alert, Oriented Labs: CBC, BMP 02/20/19 05:57 02/20/19 05:57 INR, PTT INR 1.79 (0.83-1.09) H 02/14/19 16:34 Assessment/Plan 73F with multiple medical problems including systolic CHF CAD afib on xarelto hypothyroidism and chronic venous stasis dermatitis and swelling presents with severe sepsis, hypertensive emergency, and subacute stroke. Severe sepsis uti Acute metabolic/toxic encephalopathy Lactic acidosis Acute renal failure hypertensive emergency with end organ damage Afib rate controlled continue metoprolol continue xarelto possible CVA CAD continue high intensity statin aspirin and beta saba Hypothyroidism: plan continue current management elevation of leg will start patient on augmentin to be taken for another 5 days if the cellulitis does not go then continue abx
--- NOTE | 2019-02-20 14:05 | PN ---
Progress Note (short form) - Note Progress Note: Hospitalist Medicine Resting, OOB in chair. States that her LE feel well, and w/ no abdominal pain. Has been changed to PO abx Vitals 02/20/19 12:00 Temperature 98.5 F Pulse Rate 77 Respiratory 19 Rate Blood Pressure 134/67 Physical Exam general: resting in bed, in NAD HEENT: NCAT, PERRLA neck: supple cardio: irreg irreg. no r/m/g. pulm: CTA b/l. no crackles abdomen: obese, non distended. mild suprapubic tenderness LE: 1+ pitting edema b/l. +chronic venous changes. +improved RLE erythema Laboratory Tests 02/20/19 02/20/19 05:57 05:57 WBC 7.8 Hgb 10.6 L Hct 32.5 Plt Count 194 Sodium 139 Potassium 4.3 Chloride 104 Carbon Dioxide 29 BUN 11.3 Creatinine 0.9 Random Glucose 87 Calcium 9.2 Microbiology 02/14/19 17:14 Urine - Urine Clean Catch Urine Culture - Final Escherichia Coli Vr Ec Faecium 02/14/19 16:34 Blood - Peripheral Venous Blood Culture - Preliminary NO GROWTH OBTAINED AFTER 96 HOURS, INCUBATION TO CONTINUE FOR 1 DAYS. 02/14/19 16:34 Blood - Peripheral Venous Blood Culture - Preliminary NO GROWTH OBTAINED AFTER 96 HOURS, INCUBATION TO CONTINUE FOR 1 DAYS. Imaging 02/14/19: CXR: large heart, congestive changes 02/14/19: CT t-spine, CT c-spine 02/14/19: CT head: moderate vol loss, ventricular dilation, moderate chronic microvascular ischemic changes. no mass lesion, gross acute infarct or intracranial hemorrhage are identified. no fracture or subluxation are identified. intervertebral disc spaces are intact. no compression fx 02/15/19: Renal sono: 2 right exophytic simple cysts with largest measuring 4.7x3.8cm. both kidneys are unremarkable no stones or hydro. 02/15/19: carotid doppler: mild intimal thickening at the common carotid bifurcation, bilaterally w/o evidence of hemodynamically sig stenosis bilaterally 02/16/19: CXR: congestive changes have diminished slightly since previous exam 02/16/19 MRI brain w/o contrast: no evidence of acute or subacute infarction. brainstem gliosis. supratentorial chronic white matter microangiopathic ischemic changes. chronic L basal ganglia infarct. 02/16/19: Art duplex LE: abnormal flow b/l R>L. suggesting inflow pathology. on R side abnormal monophasic flow is documented throughout these vessels, on L side largely biphasic flow in common and superficial femoral arteries. monophasic flow in popliteal and posterior tibial arteries. inflow pathology 02/17/19: aorta runoff: high grade stenosis IRENE, which is patent proximally then diminutive in its mid aspect followed by occlusion of the distal IRENE and dorsalis pedis a. trace L sided pl eff, with overlying linear atelectasis scar. cardiomegaly, bilteral renal cysts, marked adrenal hyperplasia, b/l ing lymphadenopathy, subcutaneous edema in pelvis, thighs Assessment/Plan 73 y/o F with systolic CHF, CAD, afib on xarelto, hypothyroidism, and chronic venous stasis dermatitis and swelling presents who presented with severe sepsis , hypertensive emergency, and subacute stroke. #Severe sepsis 2/2 UTI, vs. LE cellulitis -was on zosyn, now on PO abx: augmentin x 5 days. if without improvement in cellulitis, to continue -lactic acidosis resolved -iso precautions -UA (+), also w/ erythema LE, chronic changes -off IVF -ID on board: Dr. Escoto #R/o CVA -initial Head CT report showed subtle hypodensity in left basal ganglia concern for a subacute lacunar infarct -brain MRI noted above ; no acute infarct -c/w asa, statin - atorva 40mg -passed s/s -neuro consulted: Dr. Blevins -maintain controlled BP < 130/80 -PT #Acute renal failure - resolved -restarted on lisinopril (dose uptitrated), and aldactone by cardio -renal sono: without evidence of acute dz, renal cysts -off IVF -nephro consult: Dr. Onofre #hypertensive emergency with end organ damage (GEMMA and stroke) - resolved -c/w amlodipine -restarted on lasix -restarted on lisinopril, aldactone by cardio #Afib -rate controlled -c/w metoprolol -on xarelto #hx COPD -nebs PRN -not in exacerbation #CHF-systolic function, mildly reduced -off IVF -restarted on lasix -Cardio: Dr. Burleson #CAD -c/w high intensity statin aspirin and BB #Hyperglycemia likely secondary to stress/infection -not a diabetic-HbA1C 5.5% done earlier this month -ISS, BGM ACHS #Chronic Venous stasis dermatitis and edema -vasc consulted: Dr. Ramirez -without acute change; however based on art duplex, aorta runoff, w/ decreased flow. -will need outpt f/u #Hypothyroidism -C/w synthroid -TSH WNL #F/E/N off IVF, avoid overload continue to follow lytes na controlled diet #PPX DVT: on xarelto #Dispo on tele, but transfer to med-surg as stable cardiac akbar on PO abx, however cont'd monitoring per ID will need f/u with Dr. Ramirez as outpatient <Leigh Caceres - Last Filed: 02/20/19 18:12> - Note Progress Note: Seen and examined; please refer to resident note for further historical information. I agree with the aforementioned assessment and plan and historical information aside from as supplemented by myself. Independently verified all johns exam findings and diagnostics. I discussed the case at length with the resident and agree with the plan as outlined. Agree with above subjective information 10 sys ROS done and negative aside from HPI VS, labs, imaging reviewed NAD AAO resting in bed; on O2. Baseline mentation; no further complaints NC AT EOMI PERRLA HR wnl, s1/2+; chronic dependent edema in apparent NSR NT ND +BS CN2-12 wnl, no fnd Normal mood, appropriate behavior Assessment and plan: Pending DC planning and further discussion with ID regarding final abx regimine. Probelms include: -AMS 2/2 Toxic metabolic encephalopathy (UTI +/- HTN encephalopathy) -Sepsis 2/2 UTI secondary to E. coli, VRE UTI (Also considering potential cellulitis per ID given risks with underlying zascular disease and potential hypoperfusion. Will consider trending inflammatory markers and discuss with their service to ensure proper coverage and minimize risk of bounceback). -HTN Emergency -Chronic left basal ganglia ischemic infarct -GEMMA on CKD (Resolved; on home meds which do have some nephrotoxic effect. Ensuring continued excellent renal function prior to discharge) -Chronic CAD with no acute symptoms, monitor. No issues on telemetry. ASA, MS , Atorva -Afib with elevated CV2 score, on home Xarelto and rate controlled. Med adjustments per Dr. Burleson. -Chronic HFrEF with ongoing NYHA I-II symptoms, at baseline, resuming home aldactone and lasix when clinically appropriate. -COPD (Class unknown); continue home meds and FU with pulm as OP for PFTs. Appreciate pulmonary input. -Chronic venous stasis with underlying PAD; diagnostics as indicated in resident note. Will followup with vascular as OP. -Hx Hypothyroidism; clinically stable and can FU TSH as OP to adjust LT4 dose. -Chronic Anemia, stable; 12/2018 iron studies reviewed. Can go ahead and monitor CBC with respect to guideline-based XF thresholds. -Hyperglycemia without DM (resolved) -Morbid Obesity DC planning per subspecialty clearance. Discussed with ID and now on PO augmentin; would like to monitor for no regression given longstanding history and slow improvement. Overall if no further issues she can be discharged home pending ID approval and final clearance. Overall she is an exceptionally high risk of bounceback even with optimal DC planning given her history of multiple hospitalizations, chronic physical deconditioning worsened by underlying likely DJD and morbid obesity with poor underlying functional status and mild MCI. She has multiple medical comorbidities that require in depth monitoring when homeostasis is broken. We will ensure all services are coordinated to the best of our ability prior to Mrs. Zheng's departure from [facility]. <Killian Baer - Last Filed: 02/21/19 03:40>
--- NOTE | 2019-02-20 14:08 | PN ---
Progress Note, Physician History of Present Illness: Pt seen and examined at bedside. She is awake and alert. She denies shortness of breath. - Current Medication List Current Medications: Active Medications Acetaminophen (Tylenol -) 650 mg PO Q6H PRN PRN Reason: HEADACHE Last Admin: 02/18/19 15:12 Dose: 650 mg Albuterol Sulfate (Ventolin Hfa Inhaler -) 2 puff IH Q6H PRN PRN Reason: SHORT OF BREATH/WHEEZING Amlodipine Besylate (Norvasc -) 10 mg PO DAILY [facility] Last Admin: 02/20/19 10:58 Dose: 10 mg Amoxicillin/Clavulanate Potassium (Augmentin - 875mg Tablet) 1 tab PO BID@0800, 1730 [facility] Aspirin (Ecotrin -) 81 mg PO DAILY [facility] Last Admin: 02/20/19 10:57 Dose: 81 mg Atorvastatin Calcium (Lipitor -) 40 mg PO HS [facility] Last Admin: 02/19/19 22:49 Dose: 40 mg Ferrous Sulfate (Feosol -) 325 mg PO BID [facility] Last Admin: 02/20/19 10:57 Dose: 325 mg Furosemide (Lasix -) 40 mg PO DAILY [facility] Insulin Aspart (Novolog Vial Sliding Scale -) 1 vial SQ ACHS [facility]; Protocol Last Admin: 02/20/19 10:59 Dose: Not Given Ipratropium [place] (Atrovent 0.02% Nebulizer -) 1 amp NEB RQID [facility] Last Admin: 02/20/19 11:52 Dose: Not Given Lactobacillus Acidophilus (Bacid -) 1 tab PO DAILY [facility] Last Admin: 02/20/19 10:57 Dose: 1 tab Levothyroxine Sodium (Synthroid -) 125 mcg PO DAILY@0700 [facility] Last Admin: 02/20/19 06:47 Dose: 125 mcg Lisinopril (Prinivil) 5 mg PO DAILY [facility] Last Admin: 02/20/19 10:58 Dose: 5 mg Metoprolol Succinate (Toprol Xl -) 100 mg PO DAILY [facility] Last Admin: 02/20/19 10:58 Dose: 100 mg Rivaroxaban (Xarelto) 20 mg PO HS [facility] Last Admin: 02/19/19 22:48 Dose: 20 mg Senna (Senna -) 1 tab PO HS [facility] Last Admin: 02/19/19 22:49 Dose: 1 tab Spironolactone (Aldactone -) 25 mg PO DAILY [facility] Last Admin: 02/20/19 10:57 Dose: 25 mg - Objective Vital Signs: Vital Signs Temperature 98.5 F 02/20/19 12:00 Pulse Rate 77 02/20/19 12:00 Respiratory Rate 19 02/20/19 12:00 Blood Pressure 134/67 02/20/19 12:00 O2 Sat by Pulse Oximetry (%) 95 02/20/19 12:37 Constitutional: Yes: Calm Eyes: Yes: Conjunctiva Clear HENT: Yes: Atraumatic Cardiovascular: Yes: S1, S2 Respiratory: Yes: CTA Bilaterally Gastrointestinal: Yes: Normal Bowel Sounds, Soft Genitourinary: Yes: WNL Edema: Yes Edema: LLE: 1+, RLE: 1+ Integumentary: Yes: Venous Stasis Changes Neurological: Yes: Oriented Labs: CBC, BMP 02/20/19 05:57 02/20/19 05:57 INR, PTT INR 1.79 (0.83-1.09) H 02/14/19 16:34 Problem List - Problems (1) Altered mental status Code(s): R41.82 - ALTERED MENTAL STATUS, UNSPECIFIED Qualifiers: Qualified Code(s): R41.0 - Disorientation, unspecified (2) Basal ganglia infarction Code(s): I63.9 - CEREBRAL INFARCTION, UNSPECIFIED (3) CVA (cerebral vascular accident) Code(s): I63.9 - CEREBRAL INFARCTION, UNSPECIFIED (4) Sepsis Code(s): A41.9 - SEPSIS, UNSPECIFIED ORGANISM Qualifiers: Qualified Code(s): A41.9 - Sepsis, unspecified organism; R65.20 - Severe sepsis without septic shock; J96.00 - Acute respiratory failure, unspecified whether with hypoxia or hypercapnia Assessment/Plan Current Medications Generic Name Dose Route Start Last Admin Trade Name Freq PRN Reason Stop Dose Admin Acetaminophen 650 mg 02/18/19 09:18 02/18/19 15:12 Tylenol - PO 650 mg Q6H PRN Administration HEADACHE Albuterol Sulfate 2 puff 02/14/19 22:28 Ventolin Hfa Inhaler - IH Q6H PRN SHORT OF BREATH/WHEEZING Amlodipine Besylate 10 mg 02/15/19 11:00 02/20/19 10:58 Norvasc - PO 10 mg DAILY [facility] Administration Amoxicillin/Clavulanate Potassium 1 tab 02/20/19 17:30 Augmentin - 875mg Tablet PO BID@0800,1730 [facility] Aspirin 81 mg 02/15/19 10:00 02/20/19 10:57 Ecotrin - PO 81 mg DAILY [facility] Administration Atorvastatin Calcium 40 mg 02/15/19 22:00 02/19/19 22:49 Lipitor - PO 40 mg HS [facility] Administration Ferrous Sulfate 325 mg 02/15/19 10:00 02/20/19 10:57 Feosol - PO 325 mg BID [facility] Administration Furosemide 40 mg 02/20/19 14:15 Lasix - PO DAILY [facility] Insulin Aspart 1 vial 02/15/19 07:00 02/20/19 10:59 Novolog Vial Sliding Scale - SQ Not Given ACHS [facility] Protocol Ipratropium [place] 1 amp 02/15/19 08:00 02/20/19 11:52 Atrovent 0.02% Nebulizer - NEB Not Given RQID [facility] Lactobacillus Acidophilus 1 tab 02/15/19 10:00 02/20/19 10:57 Bacid - PO 1 tab DAILY [facility] Administration Levothyroxine Sodium 125 mcg 02/15/19 07:00 02/20/19 06:47 Synthroid - PO 125 mcg DAILY@0700 [facility] Administration Lisinopril 5 mg 02/19/19 10:00 02/20/19 10:58 Prinivil PO 5 mg DAILY [facility] Administration Metoprolol Succinate 100 mg 02/14/19 22:28 02/20/19 10:58 Toprol Xl - PO 100 mg DAILY [facility] Administration Rivaroxaban 20 mg 02/14/19 22:28 02/19/19 22:48 Xarelto PO 20 mg HS [facility] Administration Senna 1 tab 02/17/19 23:00 02/19/19 22:49 Senna - PO 1 tab HS [facility] Administration Spironolactone 25 mg 02/19/19 10:00 02/20/19 10:57 Aldactone - PO 25 mg DAILY [facility] Administration Impression 1. GEMMA 2. sepsis 3. htn 4. cva 5. chf 6. hld 7. renal cysts Plan - restart lasix - cont aldactone - monitor renal function - abx per ID - avoid nephrotoxins
[2019-02-20] MEDS: FUROSEMIDE 40 MG TABLET (FP) PO SCH (16:07)
[2019-02-20] MEDS: AMOX TR/POT CLAV 875MG/125MG TABLETS (FP) PO SCH (18:23)
[2019-02-20] MEDS: SENNOSIDES 8.6MG TABLET (FP) PO SCH (22:11)
[2019-02-20] MEDS: ATORVASTATIN CA 40 MG TABLET (FP) PO SCH (22:11)
[2019-02-20] MEDS: RIVAROXABAN 20 MG TABLET PO SCH (22:11)
[2019-02-21] MEDS: INSULIN SLIDING SCALE (NOVOLOG) 1 VIAL SQ SCH ×3 (06:12→16:15)
[2019-02-21] MEDS: LEVOTHYROXINE NA 125 MCG TABLET (FP) PO SCH (06:14)
[2019-02-21 07:00] LABS: BASO % 0.6 % (0-2.0); EOS % 2.4 % (0-4.5); HEMATOCRIT 31.5 % (32.4-45.2); HEMOGLOBIN 10.2 GM/dL (10.7-15.3); LYMPH % 20.7 % (8-40); MCH 29.6 pg (25.7-33.7); MCHC 32.4 g/dl (32.0-36.0); MEAN CELL VOLUME 91.3 fl (80-96); MEAN PLT VOLUME 9.4 fl (7.5-11.1); MONO % 11.3 % (3.8-10.2); PLATELET COUNT 218 K/MM3 (134-434); RBC 3.45 M/mm3 (3.60-5.2); RDW 16.2 % (11.6-15.6)
[2019-02-21 07:03] LABS: BLOOD UREA NITROGEN 14.2 mg/dL (7-18); CREATININE 0.9 mg/dL (0.55-1.3); MAGNESIUM 2.2 mg/dL (1.8-2.4); POTASSIUM 3.9 mmol/L (3.5-5.1)
[2019-02-21] MEDS: AMOX TR/POT CLAV 875MG/125MG TABLETS (FP) PO SCH (08:18)
--- NOTE | 2019-02-21 08:31 | PN ---
Progress Note, Physician Chief Complaint: doing well, bp better, no sob, no fever, no chills, - Current Medication List Current Medications: Active Medications Acetaminophen (Tylenol -) 650 mg PO Q6H PRN PRN Reason: HEADACHE Last Admin: 02/18/19 15:12 Dose: 650 mg Albuterol Sulfate (Ventolin Hfa Inhaler -) 2 puff IH Q6H PRN PRN Reason: SHORT OF BREATH/WHEEZING Amlodipine Besylate (Norvasc -) 10 mg PO DAILY [facility] Last Admin: 02/20/19 10:58 Dose: 10 mg Amoxicillin/Clavulanate Potassium (Augmentin - 875mg Tablet) 1 tab PO BID@0800, 1730 [facility] Last Admin: 02/21/19 08:18 Dose: 1 tab Aspirin (Ecotrin -) 81 mg PO DAILY [facility] Last Admin: 02/20/19 10:57 Dose: 81 mg Atorvastatin Calcium (Lipitor -) 40 mg PO HS [facility] Last Admin: 02/20/19 22:11 Dose: 40 mg Ferrous Sulfate (Feosol -) 325 mg PO BID [facility] Last Admin: 02/20/19 22:11 Dose: 325 mg Furosemide (Lasix -) 40 mg PO DAILY [facility] Last Admin: 02/20/19 16:07 Dose: 40 mg Insulin Aspart (Novolog Vial Sliding Scale -) 1 vial SQ [facility]; Protocol Last Admin: 02/21/19 06:12 Dose: Not Given Ipratropium [place] (Atrovent 0.02% Nebulizer -) 1 amp NEB RQID [facility] Last Admin: 02/20/19 20:38 Dose: Not Given Lactobacillus Acidophilus (Bacid -) 1 tab PO DAILY [facility] Last Admin: 02/20/19 10:57 Dose: 1 tab Levothyroxine Sodium (Synthroid -) 125 mcg PO DAILY@0700 [facility] Last Admin: 02/21/19 06:14 Dose: 125 mcg Lisinopril (Prinivil) 5 mg PO DAILY [facility] Last Admin: 02/20/19 10:58 Dose: 5 mg Metoprolol Succinate (Toprol Xl -) 100 mg PO DAILY [facility] Last Admin: 02/20/19 10:58 Dose: 100 mg Rivaroxaban (Xarelto) 20 mg PO HS [facility] Last Admin: 02/20/19 22:11 Dose: 20 mg Senna (Senna -) 1 tab PO HS [facility] Last Admin: 02/20/19 22:11 Dose: Not Given Spironolactone (Aldactone -) 25 mg PO DAILY [facility] Last Admin: 02/20/19 10:57 Dose: 25 mg - Objective Vital Signs: Vital Signs Temperature 97.9 F 02/21/19 06:00 Pulse Rate 86 02/21/19 08:13 Respiratory Rate 19 02/21/19 08:13 Blood Pressure 130/74 02/21/19 08:13 O2 Sat by Pulse Oximetry (%) 96 02/20/19 21:00 Constitutional: Yes: Well Nourished, No Distress Eyes: Yes: WNL HENT: Yes: Normocephalic Neck: Yes: WNL, Supple, Trachea Midline Cardiovascular: Yes: WNL, Regular Rate and Rhythm Respiratory: Yes: Regular Gastrointestinal: Yes: WNL, Normal Bowel Sounds Musculoskeletal: Yes: WNL Edema: No Peripheral Pulses WNL: Yes Neurological: Yes: WNL Labs: CBC, BMP 02/21/19 05:45 02/21/19 05:45 INR, PTT INR 1.79 (0.83-1.09) H 02/14/19 16:34 Impression/Plan Impression/Plan: Assessment/Plan 73 y/o F with systolic CHF, CAD, afib on xarelto, hypothyroidism, and chronic venous stasis dermatitis and swelling presents who presented with severe sepsis , hypertensive emergency, and subacute stroke. UTI, - PO abx: augmentin x 5 days. -ID on board: Dr. Tigist valverde , symptom resolved, -initial Head CT report showed subtle hypodensity in left basal ganglia concern for a subacute lacunar infarct -brain MRI noted above ; no acute infarct -c/w asa, statin - atorva 40mg -maintain controlled BP < 130/80 -PT #Acute renal failure - resolved -nephro consult: Dr. Onofre #hypertensive emergency with end organ damage (GEMMA and stroke) - resolved -c/w amlodipine -restarted on lasix -restarted on lisinopril, aldactone by cardio #Afib with mild chf, -rate controlled -c/w metoprolol -on xarelto cardio consult, #hx COPD -nebs PRN -not in exacerbation #CAD -c/w high intensity statin aspirin and BB #Hyperglycemia likely secondary to stress/infection -ISS, BGM ACHS #Chronic Venous stasis dermatitis and edema -vasc consulted: Dr. Ramirez -continue xurrent meds, and out pt fu, #Hypothyroidism -C/w synthroid #PPX DVT: on xarelto Visit type - Emergency Visit Emergency Visit: No - New Patient This patient is new to me today: Yes Date on this admission: 02/21/19 - Critical Care Critical Care patient: No - Discharge Referral Referred to [facility] Med P.C.: No
[2019-02-21] MEDS: IPRATROPIUM BR 0.02% 0.5 MG/2.5 ML VIAL.NEB. NEB SCH ×3 (08:50→16:26)
[2019-02-21] MEDS ORDERED: PT OWN MED DRAWER 7, Y5N ONE ×2 (09:08→09:41)
[2019-02-21] MEDS: ASPIRIN COATED 81 MG TABLET.EC PO SCH (09:11)
[2019-02-21] MEDS: FUROSEMIDE 40 MG TABLET (FP) PO SCH (09:11)
[2019-02-21] MEDS: SPIRONOLACTONE 25 MG TABLET (FP) PO SCH (09:11)
[2019-02-21] MEDS: LACTOBACILLUS ACIDOPHILUS 1 TABLET PO SCH (09:11)
[2019-02-21] MEDS: LISINOPRIL 5 MG TABLET (FP) PO SCH (09:12)
[2019-02-21] MEDS: amLODIPine BESYLATE 10 MG TABLET (FP) PO SCH (09:12)
--- NOTE | 2019-02-21 09:59 | PN ---
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 Burleson History of Present Illness: Afebrile, LE cellulitis improving, hemodynamics stable, rate-controlled afib. - Current Medication List Current Medications: Active Medications Acetaminophen (Tylenol -) 650 mg PO Q6H PRN PRN Reason: HEADACHE Last Admin: 02/18/19 15:12 Dose: 650 mg Albuterol Sulfate (Ventolin Hfa Inhaler -) 2 puff IH Q6H PRN PRN Reason: SHORT OF BREATH/WHEEZING Amlodipine Besylate (Norvasc -) 10 mg PO DAILY [facility] Last Admin: 02/21/19 09:12 Dose: 10 mg Amoxicillin/Clavulanate Potassium (Augmentin - 875mg Tablet) 1 tab PO BID@0800, 1730 [facility] Last Admin: 02/21/19 08:18 Dose: 1 tab Aspirin (Ecotrin -) 81 mg PO DAILY [facility] Last Admin: 02/21/19 09:11 Dose: 81 mg Atorvastatin Calcium (Lipitor -) 40 mg PO HS [facility] Last Admin: 02/20/19 22:11 Dose: 40 mg Ferrous Sulfate (Feosol -) 325 mg PO BID [facility] Last Admin: 02/20/19 22:11 Dose: 325 mg Furosemide (Lasix -) 40 mg PO DAILY [facility] Last Admin: 02/21/19 09:11 Dose: 40 mg Insulin Aspart (Novolog Vial Sliding Scale -) 1 vial SQ [facility]; Protocol Last Admin: 02/21/19 06:12 Dose: Not Given Ipratropium [place] (Atrovent 0.02% Nebulizer -) 1 amp NEB RQID [facility] Last Admin: 02/21/19 08:50 Dose: 1 amp Lactobacillus Acidophilus (Bacid -) 1 tab PO DAILY [facility] Last Admin: 02/21/19 09:11 Dose: 1 tab Levothyroxine Sodium (Synthroid -) 125 mcg PO DAILY@0700 [facility] Last Admin: 02/21/19 06:14 Dose: 125 mcg Lisinopril (Prinivil) 5 mg PO DAILY [facility] Last Admin: 02/21/19 09:12 Dose: 5 mg Metoprolol Succinate (Toprol Xl -) 100 mg PO DAILY [facility] Last Admin: 02/20/19 10:58 Dose: 100 mg Rivaroxaban (Xarelto) 20 mg PO HS [facility] Last Admin: 02/20/19 22:11 Dose: 20 mg Senna (Senna -) 1 tab PO HS [facility] Last Admin: 02/20/19 22:11 Dose: Not Given Spironolactone (Aldactone -) 25 mg PO DAILY [facility] Last Admin: 02/21/19 09:11 Dose: 25 mg Tetrahydrozoline HCl (Visine -) 1 drop OU BID [facility] - Objective Vital Signs: Vital Signs Temperature 97.9 F 02/21/19 06:00 Pulse Rate 86 02/21/19 08:13 Respiratory Rate 02/21/19 08:13 Blood Pressure 130/74 02/21/19 08:13 O2 Sat by Pulse Oximetry (%) 96 02/20/19 21:00 Constitutional: Yes: No Distress, Calm Neck: Yes: Supple Cardiovascular: Yes: Pulse Irregular Respiratory: Yes: Regular, CTA Bilaterally Gastrointestinal: Yes: Normal Bowel Sounds, Soft, Abdomen, Obese Extremities: Yes: Erythema Edema: Yes Integumentary: Yes: Venous Stasis Changes Labs: CBC, BMP 02/21/19 05:45 02/21/19 05:45 INR, PTT INR 1.79 (0.83-1.09) H 02/14/19 16:34 - ....Imaging EKG: Report Reviewed (Tele: Rate-controlled afib) Assessment/Plan Problem List - Problems (1) Hyperlipidemia Assessment/Plan: LDL cholesterol 96 mg/dL. Now on atorvastatin 40 mg daily. Code(s): E78.5 - HYPERLIPIDEMIA, UNSPECIFIED (2) Syncope Code(s): R55 - SYNCOPE AND COLLAPSE (3) UTI (urinary tract infection) Assessment/Plan: On antibiotics per ID. Code(s): N39.0 - URINARY TRACT INFECTION, SITE NOT SPECIFIED Qualifiers: Urinary tract infection type: site unspecified Hematuria presence: without hematuria Qualified Code(s): N39.0 - Urinary tract infection, site not specified (4) Acute on chronic systolic and diastolic heart failure, NYHA class 2 Assessment/Plan: see under "Sepsis". Code(s): I50.43 - ACUTE ON CHRONIC COMBINED SYSTOLIC AND DIASTOLIC HRT FAIL (5) Afib Assessment/Plan: On metoprolol ER 100 qd for HR control. On rivaroxaban 20 qd for anticoagulation (hit head after fall: no bleed or infarct), d/c ASA 81 qd Code(s): I48.91 - UNSPECIFIED ATRIAL FIBRILLATION Qualifiers: Atrial fibrillation type: other persistent Qualified Code(s): I48.19 - Other persistent atrial fibrillation (6) Cellulitis Assessment/Plan: complete oral antibiotics course per ID. Compression therapy. Code(s): L03.90 - CELLULITIS, UNSPECIFIED Qualifiers: Site of cellulitis: extremity Site of cellulitis of extremity: lower extremity Laterality: left Qualified Code(s): L03.116 - Cellulitis of left lower limb (7) Morbid obesity Code(s): E66.01 - MORBID (SEVERE) OBESITY DUE TO EXCESS CALORIES (8) HTN (hypertension) Assessment/Plan: Discussed pt with neurologist. BP has been elevated lately. Restarted lisinopril 5 mg daily and sprionolactone 25 mg daily (increase doses gradually as tolerated by BP, BUN/Cr, electrolytes); also on metoprolol xl 100 qd furosemide 40 qd, and amlodipine 10 qd. Code(s): I10 - ESSENTIAL (PRIMARY) HYPERTENSION Qualifiers: Hypertension type: essential hypertension Qualified Code(s): I10 - Essential (primary) hypertension (9) Hypothyroid Code(s): E03.9 - HYPOTHYROIDISM, UNSPECIFIED Qualifiers: Hypothyroidism type: unspecified Qualified Code(s): E03.9 - Hypothyroidism , unspecified (10) Lymphedema of both lower extremities Code(s): I89.0 - LYMPHEDEMA, NOT ELSEWHERE CLASSIFIED (11) Sepsis Assessment/Plan: Cellulitis of right LE; ? UTI. On antibiotics per ID. Lisinopril 5 qd and spironolactone 25 qd restarted; also on metoprolol XL 100 qd , furosemide 40 qd , and amlodipine 10 qd. Sepsis with high fever-->IVF (mild congestion on CXR-->now clear; no JVD or dyspnea; f/u BUn/Cr, electrolytes, daily weight, Is and Os, clinical response). Code(s): A41.9 - SEPSIS, UNSPECIFIED ORGANISM Qualifiers: Sepsis type: sepsis due to unspecified organism Sepsis acute organ dysfunction status: with acute organ dysfunction Severe sepsis acute organ dysfunction type: acute respiratory failure Acute respiratory failure type: unspecified Severe sepsis shock status: without septic shock Qualified Code( s): A41.9 - Sepsis, unspecified organism; R65.20 - Severe sepsis without septic shock; J96.00 - Acute respiratory failure, unspecified whether with hypoxia or hypercapnia D/c planning as patient is now on oral medications. F/u with Dr. Ward in office, consider sleep study r/o OSAS as outpatient.
[2019-02-21] MEDS ORDERED: TETRAHYDROZOLINE HCL EYE DROPS OU SCH (10:00)
--- NOTE | 2019-02-21 11:54 | PN ---
Progress Note, Physician History of Present Illness: stable doing well legs look good - Current Medication List Current Medications: Active Medications Acetaminophen (Tylenol -) 650 mg PO Q6H PRN PRN Reason: HEADACHE Last Admin: 02/18/19 15:12 Dose: 650 mg Albuterol Sulfate (Ventolin Hfa Inhaler -) 2 puff IH Q6H PRN PRN Reason: SHORT OF BREATH/WHEEZING Amlodipine Besylate (Norvasc -) 10 mg PO DAILY [facility] Last Admin: 02/21/19 09:12 Dose: 10 mg Amoxicillin/Clavulanate Potassium (Augmentin - 875mg Tablet) 1 tab PO BID@0800, 1730 [facility] Last Admin: 02/21/19 08:18 Dose: 1 tab Aspirin (Ecotrin -) 81 mg PO DAILY [facility] Last Admin: 02/21/19 09:11 Dose: 81 mg Atorvastatin Calcium (Lipitor -) 40 mg PO HS [facility] Last Admin: 02/20/19 22:11 Dose: 40 mg Ferrous Sulfate (Feosol -) 325 mg PO BID [facility] Last Admin: 02/20/19 22:11 Dose: 325 mg Furosemide (Lasix -) 40 mg PO DAILY [facility] Last Admin: 02/21/19 09:11 Dose: 40 mg Insulin Aspart (Novolog Vial Sliding Scale -) 1 vial SQ ACHS [facility]; Protocol Last Admin: 02/21/19 06:12 Dose: Not Given Ipratropium [place] (Atrovent 0.02% Nebulizer -) 1 amp NEB RQID [facility] Last Admin: 02/21/19 08:50 Dose: 1 amp Lactobacillus Acidophilus (Bacid -) 1 tab PO DAILY [facility] Last Admin: 02/21/19 09:11 Dose: 1 tab Levothyroxine Sodium (Synthroid -) 125 mcg PO DAILY@0700 [facility] Last Admin: 02/21/19 06:14 Dose: 125 mcg Lisinopril (Prinivil) 5 mg PO DAILY [facility] Last Admin: 02/21/19 09:12 Dose: 5 mg Metoprolol Succinate (Toprol Xl -) 100 mg PO DAILY [facility] Last Admin: 02/20/19 10:58 Dose: 100 mg Rivaroxaban (Xarelto) 20 mg PO [facility] Last Admin: 02/20/19 22:11 Dose: 20 mg Senna (Senna -) 1 tab PO [facility] Last Admin: 02/20/19 22:11 Dose: Not Given Spironolactone (Aldactone -) 25 mg PO DAILY [facility] Last Admin: 02/21/19 09:11 Dose: 25 mg Tetrahydrozoline HCl (Visine -) 1 drop OU BID [facility] - Objective Vital Signs: Vital Signs Temperature 97.9 F 02/21/19 06:00 Pulse Rate 86 02/21/19 08:13 Respiratory Rate 19 02/21/19 08:13 Blood Pressure 130/74 02/21/19 08:13 O2 Sat by Pulse Oximetry (%) 93 L 02/21/19 10:00 Constitutional: Yes: No Distress, Calm Cardiovascular: Yes: S1, S2 Respiratory: Yes: Regular, CTA Bilaterally Gastrointestinal: Yes: Normal Bowel Sounds, Soft Musculoskeletal: Yes: WNL Extremities: Yes: Other Neurological: Yes: Alert, Oriented Psychiatric: Yes: Alert, Oriented Labs: CBC, BMP 02/21/19 05:45 02/21/19 05:45 INR, PTT INR 1.79 (0.83-1.09) H 02/14/19 16:34 Assessment/Plan 73F with multiple medical problems including systolic CHF CAD afib on xarelto hypothyroidism and chronic venous stasis dermatitis and swelling presents with severe sepsis, hypertensive emergency, and subacute stroke. Severe sepsis uti Acute metabolic/toxic encephalopathy Lactic acidosis Acute renal failure hypertensive emergency with end organ damage Afib rate controlled continue metoprolol continue xarelto possible CVA CAD continue high intensity statin aspirin and beta saba Hypothyroidism: plan continue current management elevation of leg will start patient on augmentin to be taken for another 5 days if the cellulitis does not go then continue abx
[2019-02-21] MEDS: FERROUS SO4 325 MG TABLET (FP) PO SCH (12:08)
[2019-02-21 13:42] VITALS: BP 132/48; PULSE 74; TEMP 98.1
--- NOTE | 2019-02-21 15:52 | DS ---
Physical Examination Vital Signs: Vital Signs Temperature 98.1 F 02/21/19 14:00 Pulse Rate 74 02/21/19 14:00 Respiratory Rate 24 H 02/21/19 14:00 Blood Pressure 132/48 L 02/21/19 14:00 O2 Sat by Pulse Oximetry (%) 93 L 02/21/19 10:00 Labs: CBC, BMP 02/21/19 05:45 02/21/19 05:45 Discharge Summary Problems reviewed: Yes Reason For Visit: ACUTE ON CHRONIC CONGESTIVE HEART FAILURE Current Active Problems Altered mental status (Acute) Cellulitis (Acute) Fluid overload (Acute) Hyperlipidemia (Acute) Rapid atrial fibrillation (Acute) Respiratory distress (Acute) Sepsis (Acute) Syncope (Acute) UTI (urinary tract infection) (Acute) Basal ganglia infarction (Chronic) Hospital Course: Assessment/Plan 73 y/o F with systolic CHF, CAD, afib on xarelto, hypothyroidism, and chronic venous stasis dermatitis and swelling presents who presented with severe sepsis , hypertensive emergency, and subacute stroke. was treated with the abx, and improved, ct head showed a hypodensity , and mri was negative, and was also seen by neuro , is doing well, ,had acute renal failure, improved, was seen by the nephrology, and improved, htn controlled, and is doing well, in the beginning had high sugars likely from the stress, now improved significantly, and doing well, leg cellulitis improved, and now on po abx, also on po lasix for the ch leg edema, and htn, Condition: Improved - Instructions Diet, Activity, Other Instructions: You were in the hospital because you slipped and fell. The CT scan of your head and CT scan of your spine was normal. You were found to have had a chronic infarction (stroke) from previous, on your brain MRI. While you were here, you were also found to have a urinary tract infection as well as cellulitis of your leg. You were treated with IV antibiotics, and improved. You are being discharged. Medications 1. Please take augmentin 875 mg twice a day for 5 days, starting tomorrow (02/21 ) to complete your antibiotic course for the UTI, and cellulitis. 2. You have been started on baby aspirin 81mg (take daily) and lipitor 40mg daily. This is for your neuro health; as you were found to have a chronic stroke /infarct from previous 3. Your lisinopril dose was changed 2.5 mg to 5mg daily. 4. You may continue your other home medications. Follow-up appointments Referrals: Monique Vaughan MD [Staff Physician] - Disposition: HOME - Home Medications Comprehensive Discharge Medication List: Ambulatory Orders Levothyroxine Sodium [Synthroid] 125 mcg PO DAILY 04/10/17 Spironolactone [Aldactone] 25 mg PO MOWEFR #20 tablet 11/28/18 Ipratropium 0.02% Nebulizer [Atrovent 0.02% Nebulizer -] 1 neb NEB QID 01/31/19 Ipratropium [place] [Atrovent Hfa] 2.5 gm IH QID PRN 01/31/19 Furosemide [Lasix -] 40 mg PO DAILY #30 tablet 02/05/19 Lactobacillus Acidophilus [Bacid -] 1 tab PO DAILY #30 tab 02/05/19 Acetaminophen [Tylenol .Regular Strength -] 650 mg PO Q6H PRN tablet 02/21/19 Albuterol Sulfate Inhaler - [Ventolin HFA Inhaler -] 1 - 2 inh PO Q6H PRN #1 inhaler 02/21/19 Amlodipine Besylate [Norvasc -] 10 mg PO DAILY 30 Days #30 tablet 02/21/19 Amox-Tr/K Cl [Augmentin 875-125mg Tablet -] 1 tab PO BID@0800,1730 3 Days #7 tablet 02/21/19 Aspirin Coated [Ecotrin -] 81 mg PO DAILY tablet.ec 02/21/19 Atorvastatin Ca [Lipitor] 40 mg PO HS 30 Days #30 tablet 02/21/19 Ferrous Sulfate [Feosol] 325 mg PO BID #60 ud 02/21/19 Furosemide [Lasix -] 40 mg PO DAILY 30 Days #30 tablet 02/21/19 Lisinopril [Prinivil] 5 mg PO DAILY 30 Days #30 tablet 02/21/19 Metoprolol Succinate [Toprol XL -] 100 mg PO DAILY #30 tab.sr.24h 02/21/19 Rivaroxaban [Xarelto -] 20 mg PO HS 30 Days #30 tablet 02/21/19 Sennosides [Senna -] 1 tab PO HS tablet 02/21/19 Tetrahydrozoline HCl [Visine -] 1 drop OU BID 10 Days #1 drops 02/21/19 This patient is new to me today: Yes Date on this admission: 02/21/19 Emergency Visit: No Critical Care patient: No - Discharge Referral Referred to [facility] Med P.C[facility] No
--- NOTE | 2019-02-21 17:53 | PN ---
Progress Note (short form) - Note Progress Note: 1. GEMMA 2. sepsis 3. htn 4. cva 5. chf 6. hld 7. renal cysts Current Medications Acetaminophen (Tylenol -) 650 mg PO Q6H PRN PRN Reason: HEADACHE Last Admin: 02/18/19 15:12 Dose: 650 mg Albuterol Sulfate (Ventolin Hfa Inhaler -) 2 puff IH Q6H PRN PRN Reason: SHORT OF BREATH/WHEEZING Amlodipine Besylate (Norvasc -) 10 mg PO DAILY [facility] Last Admin: 02/21/19 09:12 Dose: 10 mg Amoxicillin/Clavulanate Potassium (Augmentin - 875mg Tablet) 1 tab PO BID@0800, 1730 [facility] Last Admin: 02/21/19 08:18 Dose: 1 tab Atorvastatin Calcium (Lipitor -) 40 mg PO HS [facility] Last Admin: 02/20/19 22:11 Dose: 40 mg Ferrous Sulfate (Feosol -) 325 mg PO BID [facility] Last Admin: 02/21/19 12:08 Dose: 325 mg Furosemide (Lasix -) 40 mg PO DAILY [facility] Last Admin: 02/21/19 09:11 Dose: 40 mg Insulin Aspart (Novolog Vial Sliding Scale -) 1 vial SQ [facility]; Protocol Last Admin: 02/21/19 16:15 Dose: Not Given Ipratropium [place] (Atrovent 0.02% Nebulizer -) 1 amp NEB RQID [facility] Last Admin: 02/21/19 16:26 Dose: Not Given Lactobacillus Acidophilus (Bacid -) 1 tab PO DAILY [facility] Last Admin: 02/21/19 09:11 Dose: 1 tab Levothyroxine Sodium (Synthroid -) 125 mcg PO DAILY@0700 [facility] Last Admin: 02/21/19 06:14 Dose: 125 mcg Lisinopril (Prinivil) 5 mg PO DAILY [facility] Last Admin: 02/21/19 09:12 Dose: 5 mg Metoprolol Succinate (Toprol Xl -) 100 mg PO DAILY [facility] Last Admin: 02/21/19 12:08 Dose: 100 mg Rivaroxaban (Xarelto) 20 mg PO HS [facility] Last Admin: 02/20/19 22:11 Dose: 20 mg Senna (Senna -) 1 tab PO HS [facility] Last Admin: 02/20/19 22:11 Dose: Not Given Spironolactone (Aldactone -) 25 mg PO DAILY [facility] Last Admin: 02/21/19 09:11 Dose: 25 mg Tetrahydrozoline HCl (Visine -) 1 drop OU BID [facility] Last Admin: 02/21/19 12:08 Dose: 1 drop Last Vital Signs Temp Pulse Resp BP Pulse Ox 98.1 F 74 24 H 132/48 L 93 L 02/21/19 14:00 02/21/19 14:00 02/21/19 14:00 02/21/19 14:00 02/21/19 10:00 CBC, BMP 02/21/19 05:45 02/21/19 05:45
== END 2019-02-21 17:45 | disposition home or self-care (01) | DRG 871 ==
LOC: JER 15:46 → JERBED 18:09 → J2W 02-15 06:18
PROVIDERS: ADMIT Internal Medicine; ATTEND Internal Medicine
DX: A41.51 Sepsis due to Escherichia coli [E. coli] (principal); G93.41 Metabolic encephalopathy; I50.43 Acute on chronic combined systolic (congestive) and diastolic (congestive) heart failure; J96.00 Acute respiratory failure, unspecified whether with hypoxia or hypercapnia; N17.9 Acute kidney failure, unspecified; N39.0 Urinary tract infection, site not specified; Z68.41 Body mass index [BMI] 40.0-44.9, adult; L03.116 Cellulitis of left lower limb; I16.1 Hypertensive emergency; I48.19 Other persistent atrial fibrillation; I25.10 Atherosclerotic heart disease of native coronary artery without angina pectoris; R65.20 Severe sepsis without septic shock; I11.0 Hypertensive heart disease with heart failure; E03.9 Hypothyroidism, unspecified; R32 Unspecified urinary incontinence; I89.0 Lymphedema, not elsewhere classified; I16.0 Hypertensive urgency; J44.9 Chronic obstructive pulmonary disease, unspecified; D63.8 Anemia in other chronic diseases classified elsewhere; E66.01 Morbid (severe) obesity due to excess calories; R00.0 Tachycardia, unspecified; D72.829 Elevated white blood cell count, unspecified; R50.9 Fever, unspecified; R73.9 Hyperglycemia, unspecified; N28.1 Cyst of kidney, acquired; E11.51 Type 2 diabetes mellitus with diabetic peripheral angiopathy without gangrene; Z86.73 Personal history of transient ischemic attack (TIA), and cerebral infarction without residual deficits
CPT/HCPCS: 36415; 70450-TC; 70551-TC; 71045-TC-FY; 72125-TC; 72128-TC; 75635-TC; 76775-TC; 80048; 80053; 80061; 81003; 82436; 82550; 82565; 82803; 82962; 83605; 83721; 83735; 83880; 84100; 84133; 84300; 84443; 84484; 85025; 85610; 85651; 85730; 86140; 86850; 86900; 86901; 87040; 87086; 87186; 87804; 93005; 93010; 93880-TC; 93925-TC; 93970-TC; 94640; 94660; 97116-GP; 97162-GP; 99285-25; J0131; Q9967

== ENCOUNTER 2019-04-27 13:29 | Inpatient (IN) | payer OTHER ==
[2019-04-27] MEDS ORDERED: ACETAMINOPHEN 1000 MG/100 ML VIAL (NON FORMULARY) IVPB ONE (14:13)
[2019-04-27] MEDS ORDERED: LACTATED RINGERS SOLUTION 1000 ML INFUS.BAG IV ONE ×3 (14:14→16:28)
[2019-04-27] MEDS ORDERED: ACETAMINOPHEN INJECTION 100 ML IVPB ONE ×2 (14:32→21:48)
--- NOTE | 2019-04-27 14:41 | PDOC ---
Attending Attestation - Resident Resident Name: Aquilino Albert - ED Attending Attestation I have performed the following: I have examined & evaluated the patient, The case was reviewed & discussed with the resident, I agree w/resident's findings & plan, Exceptions are as noted - HPI HPI: 04/27/19 14:32 74-year-old female history of hypertension, hyperlipidemia, afib, COPD, CHF, history of pneumonias and cellulitis presenting with a complaint of fever and generalized weakness. The daughter states that the patient was doing well this weekend, they had traveled up to [place] to their other house and was only complaining of mild runny nose. The patient denies any other symptoms including sore throat, body aches, dysuria, diarrhea, nausea, vomiting, chest pain, cough. The daughter mentions the patient did have a history of influenza that she self diagnosed in March. Most of the history is provided by Daugter as pt is somewhat smomnelent and slow to respond. Exam: GENERAL: The patient is awake, alert, somnolent/slow to respond HEAD: Normocephalic, atraumatic. EYES: extraocular movements intact, sclera anicteric, conjunctiva clear. ENT: Normal voice, dry mucous membranes. NECK: Normal range of motion, supple LUNGS: Breath sounds equal, clear to auscultation bilaterally. No wheezes, no rhonchi, no rales. HEART: tachycardic/irregular ABDOMEN: Soft, nontender, No guarding, no rebound. No CVA tenderness EXTREMITIES: Normal range of motion, bl lympedema NEUROLOGICAL: No facial assymetry, Normal speech, moving all 4 extremities spontaneously PSYCH: Normal mood, normal affect. SKIN: Warm, Dry, normal turgor, Upon arrival the patient was noted to be febrile to 102, tachycardic to 150 on EKG does appear to be irregularly irregular consistent with A. fib with rapid ventricular response. Sepsis order set was obtained upon arrival The A. fib appears new, the heart rate is likely driven from the fever the patient was written for fluids and Tylenol. Will reassess the heart rate after the temperature is controlled Differential for the patient's symptoms includes but is not limited to pneumonia , influenza, UTI 04/27/19 17:43 - Physicial Exam PE: 04/27/19 19:02 see above - Critical Care Time Total Critical Care Time: 45 Critical Care Statement: The care of this patient involved high complexity decision making to prevent further life threatening deterioration of the patient 's condition and/or to evaluate & treat vital organ system(s) failure or risk of failure. - Medical Decision Making 04/27/19 16:17 pts labs reviewed noted for leukoctysosi, elevated LA to 2.2 UA with bacturia but without significant wbc cxr with suspectied RUL pna 04/27/19 19:02 After further discussion with the family and the patient the patient did note that she had visited Dr. Escoto approximately 2 weeks ago with a complaint of a fever she did receive a chest x-ray and did receive an 7-day course of Augmentin that she completed. Her chest CT is negative for a pneumonia. Plan overt source of her infection is unclear the flu is still pending. Consider possibility of partially treated UTI there is still substantial amount of bacteria however few WBCs. Heart Score/ECG Review - ECG Impressions Comment:: 04/27/19 17:42 Twelve-lead EKG was performed and reviewed by me. Irregularly irregular Rate of [address] abnormality afib + on prior ekg in 2019
[2019-04-27] MEDS ORDERED: PIPERACILLIN/TAZOB 4.5 GM 4.5 GM in DEXTROSE 5%-WATER 100 ML IVPB ONE (14:51)
[2019-04-27] MEDS ORDERED: LINEZOLID 600 MG PREMIX BAG 600 MG in PREMIX 300 IV ONE (14:51)
--- NOTE | 2019-04-27 14:54 | PDOC ---
History of Present Illness - General Chief Complaint: SIRS, Suspected/Possible Stated Complaint: Weakness Time Seen by Provider: 04/27/19 14:12 History Source: Patient, Family (Daughter at bedside) Exam Limitations: Clinical Condition - History of Present Illness Initial Comments: HPI: 74 y/o female presenting to [facility] ER complaining of fever and fatigue. The pt was unable or unwilling to answer all of the interview questions. Able to state she was currently in the hospital and the month was April. Would not describe what she was feeling. Her daughter was present at bedside. She stated she found her mother sickly appearing leaning on her counter at home. Noted to have fever this morning of 100.6. Took Tylenol at approx. 8:30am. No fever or other symptoms noted over the the previous weekend. Pt has a h/o of recurrent UTIs. Reviewed most recent culture data in [place]. Echo dated 02/2019 in [place] noted EF estimated 45-50%. Medical Hx: - HTN - Hypothyroid - Systolic CHF - COPD - h/o cellulitis to lower extremities - h/o PNA - h/o recurrent UTIs Surgical Hx: - Total Hysterectomy - 3x failed cardioversions - R rotator cuff repair - Bladder ablation Review of Systems: Unable to perform secondary to pt current condition Physical Examination: Vital signs and nursing notes reviewed. Constitutional- Sickly appearing obese adult female in no acute life threat. Found semi-fowlers on hospital bed. Kept eyes closed until verbally aroused. Unable or unwilling to fully participate in conversation. Head- Normocephalic. No obvious external signs of trauma. Neck- Supple, trachea is midline. Cardiovascular / Chest- Tachycardic rate with regular rhythm. No murmur, rubs, clicks, or gallops. Peripheral pulses- radial pulses full. Respiratory- Breathing tachypenic. Equal chest rise and fall. Clear to auscultation bilaterally. No stridor, no wheezing, no rhonchi. Gastrointestinal- abdomen is soft, non-tender, non-distended. Midline lower abdominal post surgical scar. Neuro- Alert and oriented x4. Moving all four extremities spontaneously. No facial asymmetry. No slurred speech. Skin- Warm, dry, and intact. Ext- 2+ pitting edema to R and L lower extremity. Chronic appearing skin changes. No open wounds or cellulitic lesions. MDM: 74 y/o female presenting with somnolence. Febrile at triage; given acetaminophen. Vitals remarkable for tachycardia without hypotension. Mildly hypoxic on room air. Physical exam as described above. Ordered ED Sepsis order set. Noted EF measured on Echo in February 2019. Ordered 2L LR IVFB. Reviewed urine culture data; ordered Linezolid given resistance to Vancomycin and Zosyn for broad spectrum abx coverage. Pt reassessed after 1L IVFB. Found alert, oriented, and conversant. Reports she was evaluated by Dr. Calderon two weeks ago and placed on Tamiflu and Amoxicillin for 7 days. Completed the course one week ago. Labs remarkable for leukocytosis with left shift. Lactic acid elevated and trended upward despite initial fluid resuscitation. Continued LR infusion. Noted mild transaminitis. Ordered RUQ U/S to further evaluation - low suspicion for intra-abdominal process given benign physical exam. U/S unremarkable for acute pathology. UA unremarkable for pyuria, nitrites, or leukocyte esterase. Possibly skewed by recent abx regimen. CXR unremarkable for consolidation. Ordered Chest CT given unclear etiology of fever and mild hypoxia on arrival. CT unremarkable for acute pathology. Pts HR trended downward. Source of fever and tachycardia are unclear. Will admit the pt for further evaluation, monitoring, and antibiotic administration. 27 Apr 2019 19:44 PM Telephone discussion with [employer]. Verbally appraised of the pts HPI, ED course, and current plan of management. Will admit pt to med/ surg for attending Dr. Vaughan. Aquilino Albert M.D., PGY2 Emergency Medicine Resident Past History - Past Medical History Allergies/Adverse Reactions: Allergies Allergy/AdvReac Type Severity Reaction Status Date / Time shrimp Allergy Hives Verified 01/31/19 19:06 Home Medications: Ambulatory Orders Levothyroxine Sodium [Synthroid] 125 mcg PO DAILY 04/10/17 Spironolactone [Aldactone] 25 mg PO MOWEFR #20 tablet 11/28/18 Ipratropium 0.02% Nebulizer [Atrovent 0.02% Nebulizer -] 1 neb NEB QID 01/31/19 Ipratropium [place] [Atrovent Hfa] 2.5 gm IH QID PRN 01/31/19 Furosemide [Lasix -] 40 mg PO DAILY #30 tablet 02/05/19 Lactobacillus Acidophilus [Bacid -] 1 tab PO DAILY #30 tab 02/05/19 Acetaminophen [Tylenol .Regular Strength -] 650 mg PO Q6H PRN tablet 02/21/19 Albuterol Sulfate Inhaler - [Ventolin HFA Inhaler -] 1 - 2 inh PO Q6H PRN #1 inhaler 02/21/19 Amlodipine Besylate [Norvasc -] 10 mg PO DAILY 30 Days #30 tablet 02/21/19 Aspirin Coated [Ecotrin -] 81 mg PO DAILY tablet.ec 02/21/19 Atorvastatin Ca [Lipitor] 40 mg PO HS 30 Days #30 tablet 02/21/19 Ferrous Sulfate [Feosol] 325 mg PO BID #60 ud 02/21/19 Furosemide [Lasix -] 40 mg PO DAILY 30 Days #30 tablet 02/21/19 Lisinopril [Prinivil] 5 mg PO DAILY 30 Days #30 tablet 02/21/19 Metoprolol Succinate [Toprol XL -] 100 mg PO DAILY #30 tab.sr.24h 02/21/19 Rivaroxaban [Xarelto -] 20 mg PO HS 30 Days #30 tablet 02/21/19 Sennosides [Senna -] 1 tab PO HS tablet 02/21/19 Tetrahydrozoline HCl [Visine -] 1 drop OU BID 10 Days #1 drops 02/21/19 Anemia: No Asthma: No Cancer: No Cardiac Disorders: Yes (afib, CHF) CVA: No COPD: No CHF: Yes Dementia: No Diabetes: No GI Disorders: No Disorders: No HTN: Yes Hypercholesterolemia: Yes Liver Disease: No Seizures: No Thyroid Disease: Yes (hypo) - Surgical History Abdominal Surgery: No Appendectomy: No Cardiac Surgery: No (Cardioversion x 2, Cardiac Cath x 1) Cholecystectomy: No Lung Surgery: No Neurologic Surgery: No Orthopedic Surgery: (rt rotator cuff repair) - Psycho Social/Smoking Cessation Hx Smoking History: Never smoked Have you smoked in the past 12 months: No If you are a former smoker, when did you quit?: 40 years ago Hx Alcohol Use: No Drug/Substance Use Hx: No Substance Use Type: None Hx Substance Use Treatment: No *Physical Exam - Vital Signs Last Vital Signs Temp Pulse Resp BP Pulse Ox 102.6 F H 142 H 34 H 188/137 H 92 L 04/27/19 14:00 04/27/19 14:00 04/27/19 14:00 04/27/19 14:00 04/27/19 14:00 Repeat PE for Septic Shock - Vital Signs Vital Signs: Vital Signs Temperature 102.6 F H 04/27/19 14:00 Pulse Rate 115 H 04/27/19 16:05 Respiratory Rate 26 H 04/27/19 16:05 Blood Pressure 200/132 H 04/27/19 14:50 O2 Sat by Pulse Oximetry (%) 99 04/27/19 14:50 I have reviewed the most recent vital signs: Yes - PE CV for Spetic Shock: Regular Rhythm, Other (Tachycardic, but improved since arrival) Lungs: Lungs Clear Vascular: Right Radial: 3+ Capillary Refill: <3 seconds Skin exam: Normal Color ED Treatment Course - LABORATORY CBC & Chemistry Diagram: 04/27/19 14:53 04/27/19 14:53 - RADIOLOGY Radiology Studies Ordered: Category Date Time Status CHEST X-RAY PORTABLE* [RAD] Stat Radiology 04/27/19 14:12 Ordered Discharge - Discharge Information Problems reviewed: Yes Clinical Impression/Diagnosis: Rapid atrial fibrillation Sepsis Qualifiers: Sepsis type: sepsis due to unspecified organism Sepsis acute organ dysfunction status: without acute organ dysfunction Qualified Code(s): A41.9 - Sepsis, unspecified organism Fever Qualifiers: Fever type: unspecified Qualified Code(s): R50.9 - Fever, unspecified Altered mental status Qualifiers: Altered mental status type: unspecified Qualified Code(s): R41.82 - Altered mental status, unspecified Condition: Stable - Admission Yes - Follow up/Referral - Patient Discharge Instructions - Post Discharge Activity
[2019-04-27 15:15] LABS: BASO % 0.1 % (0-2.0); HEMATOCRIT 38.4 % (32.4-45.2); HEMOGLOBIN 12.8 GM/dL (10.7-15.3); LYMPH % 2.3 % (8-40); MCH 29.1 pg (25.7-33.7); MCHC 33.2 g/dl (32.0-36.0); MEAN CELL VOLUME 87.5 fl (80-96); MEAN PLT VOLUME 9.6 fl (7.5-11.1); MONO % 3.8 % (3.8-10.2); NEUT % 93.8 % (42.8-82.8); PLATELET COUNT 241 K/MM3 (134-434); RBC 4.38 M/mm3 (3.60-5.2); WHITE BLOOD COUNT 18.2 K/mm3 (4.0-10.0)
[2019-04-27] MEDS ORDERED: PIPERACILLIN/TAZOB 4.5 GM 4.5 GM/100 ML BAG IVPB ONE (15:17)
[2019-04-27 15:20] LABS: EPI CELLS 3.6 /HPF (0-5/HPF); HYALINE CASTS 3 /lpf (0-8); PH,URINE 6.5 (5.0-8.0); URINE APPEARANCE CLEAR; URINE BACTERIA 1365.8 /hpf (NEGATIVE); URINE BILIRUBIN NEGATIVE (NEGATIVE); URINE COLOR YELLOW; URINE GLUCOSE (UA) NEGATIVE (NEGATIVE); URINE KETONE NEGATIVE (NEGATIVE); URINE LEUK ESTERASE NEGATIVE (NEGATIVE); URINE NITRITE NEGATIVE (NEGATIVE); URINE PROTEIN 2+ (NEGATIVE); URINE RBC 2 /hpf (0-4); URINE UROBILINOGEN 0.2 mg/dL (0.2-1.0); URINE WBC 9 /hpf (0-5)
[2019-04-27 15:21] LABS: VENOUS PC02 38.1 mmHg (38-52); VENOUS PH 7.48 (7.31-7.41)
[2019-04-27 15:25] LABS: VENOUS PO2 < 49 mmHg (28-48)
[2019-04-27 15:47] LABS: ALBUMIN 3.6 g/dl (3.4-5.0); BILIRUBIN,TOTAL 1.8 mg/dL (0.2-1); BLOOD UREA NITROGEN 13.5 mg/dL (7-18); CALCIUM 9.3 mg/dL (8.5-10.1); CREATININE 1.1 mg/dL (0.55-1.3); N-TERMINAL BNP 4476.3 pg/ml (5-450); POTASSIUM 5.1 mmol/L (3.5-5.1); TOT PROT 8.9 g/dl (6.4-8.2)
[2019-04-27] MEDS ORDERED: ACETAMINOPHEN 1000 MG/100 ML VIAL (NON FORMULARY) IVPB PRN (20:51)
[2019-04-27] MEDS ORDERED: ALBUTEROL SO4 2.5/IPRATROPIUM 0.5 INH SOL 3 ML VIAL.NEB. NEB PRN (20:59)
[2019-04-27] MEDS ORDERED: ENOXAPARIN NA (PORCINE) 30 MG/0.3 ML DISP.SYRIN SQ SCH (22:00)
[2019-04-27] MEDS ORDERED: ATORVASTATIN CA 40 MG TABLET (FP) PO SCH (22:00)
[2019-04-28] MEDS ORDERED: ATORVASTATIN CA 40 MG TABLET (FP) ONE (00:14)
--- NOTE | 2019-04-28 01:37 | HP ---
CHIEF COMPLAINT: fever and weakness PCP:Dr. [facility] Care Coordinator: Sarah Beth HISTORY OF PRESENT ILLNESS: 74-year-old female with past medical history of hypertension, hyperlipidemia, afib,on Xarelto, prior failed cardioversions, COPD, systolic , history of pneumonias and cellulitis who presented with a complaint of fever and generalized weakness. The daughter states that the patient was doing well this weekend, they had traveled up to [place] to their other house and was only complaining of mild runny nose. The daughter mentions the patient did have a history of influenza that she self diagnosed in March. She denies chest pain or shortness of breath. On presentation to the ER she was obtunded, tachycardic , hypertensive and found to have a fever of 102.6. Lab results indicated an elevated lactic acid (2.5) and leukocytosis (18.2) with left shift, ast 83, alt 105, BNP 4476(02/2019 4493). Workup with UA was normal, CXR unremarkable. CT scan of chest and abdomen with no acute inflammatory/infectious process, several nonspecific lymph nodes present. Abdomen US with no acute choleycystitis. She was also found to have an elevated BNP. She received IV linezolid and zosyn. She received 2 Liters of RL. She has fever of unknown etiology. She is being admitted for further sepsis workup. Recent Travel: no PAST MEDICAL HISTORY: Hypertension Hyperlipidemia Atrial fibrillation COPD Systolic Congestive Heart Failure History of recurrent UTI, pneumonias and cellulitis PAST SURGICAL HISTORY: Total Hysterectomy 3 failed cardioversions Rt rotator cuff repair Bladder ablation Social History: Smoking:no Alcohol:no Drugs: no Allergies shrimp Allergy (Verified 01/31/19 19:06) Hives HOME MEDICATIONS: Home Medications Medication Instructions Recorded Levothyroxine Sodium [Synthroid] 125 mcg PO DAILY 04/10/17 Spironolactone [Aldactone] 25 mg PO MOWEFR #20 tablet 11/28/18 Ipratropium 0.02% Nebulizer 1 neb NEB QID 01/31/19 [Atrovent 0.02% Nebulizer -] Ipratropium Burns [Atrovent Hfa] 2.5 gm IH QID PRN 01/31/19 Furosemide [Lasix -] 40 mg PO DAILY #30 tablet 02/05/19 Lactobacillus Acidophilus [Bacid -] 1 tab PO DAILY #30 tab 02/05/19 Acetaminophen [Tylenol .Regular 650 mg PO Q6H PRN tablet 02/21/19 Strength -] Albuterol Sulfate Inhaler - 1 - 2 inh PO Q6H PRN #1 inhaler 02/21/19 [Ventolin HFA Inhaler -] Amlodipine Besylate [Norvasc -] 10 mg PO DAILY 30 Days #30 tablet 02/21/19 Aspirin Coated [Ecotrin -] 81 mg PO DAILY tablet.ec 02/21/19 Atorvastatin Ca [Lipitor] 40 mg PO HS 30 Days #30 tablet 02/21/19 Ferrous Sulfate [Feosol] 325 mg PO BID #60 ud 02/21/19 Furosemide [Lasix -] 40 mg PO DAILY 30 Days #30 tablet 02/21/19 Lisinopril [Prinivil] 5 mg PO DAILY 30 Days #30 tablet 02/21/19 Metoprolol Succinate [Toprol XL -] 100 mg PO DAILY #30 tab.sr.24h 02/21/19 Rivaroxaban [Xarelto -] 20 mg PO HS 30 Days #30 tablet 02/21/19 Sennosides [Senna -] 1 tab PO HS tablet 02/21/19 Tetrahydrozoline HCl [Visine -] 1 drop OU BID 10 Days #1 drops 02/21/19 REVIEW OF SYSTEMS CONSTITUTIONAL: Absent: fever, chills, diaphoresis, generalized weakness, malaise, loss of appetite, weight change HEENT: Absent: rhinorrhea, nasal congestion, throat pain, throat swelling, difficulty swallowing, mouth swelling, ear pain, eye pain, visual changes CARDIOVASCULAR: Absent: chest pain, syncope, palpitations, irregular heart rate, lightheadedness , peripheral edema RESPIRATORY: Absent: cough, shortness of breath, dyspnea with exertion, orthopnea, wheezing, stridor, hemoptysis GASTROINTESTINAL: Absent: abdominal pain, abdominal distension, nausea, vomiting, diarrhea, constipation, melena, hematochezia GENITOURINARY: Absent: dysuria, frequency, urgency, hesitancy, hematuria, flank pain, genital pain MUSCULOSKELETAL: Absent: myalgia, arthralgia, joint swelling, back pain, neck pain SKIN: Absent: rash, itching, pallor HEMATOLOGIC/IMMUNOLOGIC: Absent: easy bleeding, easy bruising, lymphadenopathy, frequent infections ENDOCRINE: Absent: unexplained weight gain, unexplained weight loss, heat intolerance, cold intolerance NEUROLOGIC: Absent: headache, focal weakness or paresthesias, dizziness, unsteady gait, seizure, mental status changes, bladder or bowel incontinence PSYCHIATRIC: Absent: anxiety, depression, suicidal or homicidal ideation, hallucinations. PHYSICAL EXAMINATION Vital Signs - 24 hr 04/27/19 04/27/19 04/27/19 14:00 14:50 16:05 Temperature 102.6 F H Pulse Rate 142 H 136 H Pulse Rate [ 115 H Apical] Respiratory 34 H 32 H 26 H Rate Blood Pressure 188/137 H 200/132 H Blood Pressure [Left Arm] O2 Sat by Pulse 98 99 Oximetry (%) 04/27/19 04/27/19 04/27/19 21:11 21:12 22:46 Temperature 102.4 F H Pulse Rate Pulse Rate [ 130 H 115 H Apical] Respiratory 36 H 28 H Rate Blood Pressure Blood Pressure 191/120 H 157/84 [Left Arm] O2 Sat by Pulse 93 L 100 98 Oximetry (%) 04/28/19 00:03 Temperature 99.9 F H Pulse Rate Pulse Rate [ 86 Apical] Respiratory 19 Rate Blood Pressure Blood Pressure 132/66 [Left Arm] O2 Sat by Pulse 98 Oximetry (%) GENERAL: awake, alert, and oriented to self, place, disoriented to year, no acute distress HEAD: normal EYES: pupils equal, round and reactive to light EARS, NOSE, THROAT: ears normal, nares patent NECK: normal LUNGS: breath sounds coarse no wheezes no crackles no accessory muscle use HEART: irregular rhythm, rate tachycardic ABDOMEN: soft, nontender, not distended, normoactive bowel sounds MUSCULOSKELETAL: limited range of motion due to weakness UPPER EXTREMITIES: 2+ pulses warm well-perfused no cyanosis no edema LOWER EXTREMITIES: 2+ pulses warm well-perfused no calf tenderness mild leg swelling NEUROLOGICAL: normal speech PSYCHIATRIC: cooperative SKIN: warm, dry, no rashes or lesions noted, normal capillary refill Laboratory Results - last 24 hr 04/27/19 04/27/19 04/27/19 14:53 14:53 14:53 WBC 18.2 H RBC 4.38 Hgb 12.8 Hct 38.4 MCV 87.5 MCH 29.1 MCHC 33.2 RDW 17.0 H Plt Count 241 D MPV 9.6 Absolute Neuts (auto) 17.1 H Total Counted 100 Neutrophils % 93.8 H D Neutrophils % (Manual) 97.0 H Band Neutrophils % 1.0 Lymphocytes % 2.3 L D Lymphocytes % (Manual) 1.0 L D Monocytes % 3.8 Monocytes % (Manual) 1 L D Eosinophils % 0.0 D Basophils % 0.1 Nucleated RBC % 0 Louisa Cells 1+ VBG pH POC VBG pCO2 POC VBG pO2 VBG HCO3 VBG O2 Sat (Breana) VBG Base Excess Sodium 136 Potassium 5.1 Chloride 98 Carbon Dioxide 27 Anion Gap 10 BUN 13.5 Creatinine 1.1 Est GFR (CKD-EPI)AfAm 56.48 Est GFR (CKD-EPI)NonAf 48.73 Random Glucose 137 H Lactic Acid 2.2 H* Calcium 9.3 Total Bilirubin 1.8 H AST 83 H ALT 105 H Alkaline Phosphatase 119 H Troponin I 0.02 B-Natriuretic Peptide 4476.3 H Total Protein 8.9 H Albumin 3.6 Urine Color Urine Appearance Urine pH Ur Specific Henderson Urine Protein Urine Glucose (UA) Urine Ketones Urine Blood Urine Nitrite Urine Bilirubin Urine Urobilinogen Ur Leukocyte Esterase Urine WBC (Auto) Urine RBC (Auto) Urine Casts (Auto) U Epithel Cells (Auto) Urine Bacteria (Auto) Influenza A (Rapid) Influenza B (Rapid) 04/27/19 04/27/19 04/27/19 14:53 14:53 16:54 WBC RBC Hgb Hct MCV MCH MCHC RDW Plt Count MPV Absolute Neuts (auto) Total Counted Neutrophils % Neutrophils % (Manual) Band Neutrophils % Lymphocytes % Lymphocytes % (Manual) Monocytes % Monocytes % (Manual) Eosinophils % Basophils % Nucleated RBC % Louisa Cells VBG pH 7.48 H POC VBG pCO2 38.1 POC VBG pO2 < 49 H VBG HCO3 28.2 VBG O2 Sat (Breana) 78.9 VBG Base Excess 4.9 H Sodium Potassium Chloride Carbon Dioxide Anion Gap BUN Creatinine Est GFR (CKD-EPI)AfAm Est GFR (CKD-EPI)NonAf Random Glucose Lactic Acid 2.5 H* Calcium Total Bilirubin AST ALT Alkaline Phosphatase Troponin I B-Natriuretic Peptide Total Protein Albumin Urine Color Yellow Urine Appearance Clear Urine pH 6.5 D Ur Specific Henderson 1.010 Urine Protein 2+ H Urine Glucose (UA) Negative Urine Ketones Negative Urine Blood Trace Urine Nitrite Negative Urine Bilirubin Negative Urine Urobilinogen 0.2 Ur Leukocyte Esterase Negative Urine WBC (Auto) 9 Urine RBC (Auto) 2 Urine Casts (Auto) 3 U Epithel Cells (Auto) 3.6 Urine Bacteria (Auto) 1365.8 Influenza A (Rapid) Influenza B (Rapid) 04/27/19 19:05 WBC RBC Hgb Hct MCV MCH MCHC RDW Plt Count MPV Absolute Neuts (auto) Total Counted Neutrophils % Neutrophils % (Manual) Band Neutrophils % Lymphocytes % Lymphocytes % (Manual) Monocytes % Monocytes % (Manual) Eosinophils % Basophils % Nucleated RBC % Nora Cells VBG pH POC VBG pCO2 POC VBG pO2 VBG HCO3 VBG O2 Sat (Breana) VBG Base Excess Sodium Potassium Chloride Carbon Dioxide Anion Gap BUN Creatinine Est GFR (CKD-EPI)AfAm Est GFR (CKD-EPI)NonAf Random Glucose Lactic Acid Calcium Total Bilirubin AST ALT Alkaline Phosphatase Troponin I B-Natriuretic Peptide Total Protein Albumin Urine Color Urine Appearance Urine pH Ur Specific Henderson Urine Protein Urine Glucose (UA) Urine Ketones Urine Blood Urine Nitrite Urine Bilirubin Urine Urobilinogen Ur Leukocyte Esterase Urine WBC (Auto) Urine RBC (Auto) Urine Casts (Auto) U Epithel Cells (Auto) Urine Bacteria (Auto) Influenza A (Rapid) Negative Influenza B (Rapid) Negative ASSESSMENT/PLAN: 74-year-old female with past medical history of hypertension, hyperlipidemia, atrial fibrillation ,on Xarelto, prior failed cardioversions, COPD, systolic congestive heart failure, history of pneumonias, cellulitis and recurrent UTI's who presented with fever and generalized weakness. #1 Cough / Fever of Unknown Etiology Workup- leukocytosis with left shift, elevated lactic acid level (received 2 L LR), neg UA, CXR unremarkable, influenza neg, CT scan of chest /abdomen with no acute infectious process, no infiltrate w/ several nonspecific lymph nodes seen. Received IV linezolid and zosyn Infectious Disease consulted- Dr. Flannery Continue with IV zosyn UA, blood and sputum culture pending IV Tylenol for fever >101, monitor LFT's closely as elevated Pulmonary Consulted- Dr. Nicholson for cough (CXR and CT scan of chest w/ no infiltrate) Repeat lactic acid level in am #2 Hypertension Improved UA w/2+ proteinuria Continue with toprol, amlodipine and lisinpril #3 Systolic Congestive Heart Failure no acute exacerbation,does not appear to be fluid overloaded ,denies orthopnea, dyspnea has an elevated BNP 4476 ([id number]) continue toprol, and lisinopril continue oral lasix Cardiology consulted- Dr. Burleson #4 Atrial Fibrillation rates uncontrolled as a physiological response in setting of acute medical illness continue with toprol continue with Xarelto for anticoagulation #5 COPD no acute exacerbation continue albuterol nebs prn #6 Hyperlipidemia statin held in setting of transaminitis #7 Transaminitis Abdomen US with no choleycystitis Hold statin, avoid excessive use of Tylenol GI consulted- Dr. Baldemar LEAVITT avoid giving further IV fluids to prevent acute CHF exacerbation monitor BMP daily low sodium diet DVT Prophylaxsis continue with Xarelto Visit type - Emergency Visit Emergency Visit: Yes ED Registration Date: 04/27/19 Care time: The patient presented to the Emergency Department on the above date and was hospitalized for further evaluation of their emergent condition. - New Patient This patient is new to me today: Yes Date on this admission: 04/28/19 - Critical Care Critical Care patient: No
[2019-04-28] MEDS ORDERED: PIPERACILLIN/TAZOB 3.375 GM 3.375 GM in DEXTROSE 5%-WATER - 50 ML IVPB SCH (02:15)
[2019-04-28] MEDS ORDERED: PIPERACILLIN/TAZOB 3.375 GM 3.375 GM/50 ML BAG IVPB ONE ×2 (02:44→08:16)
[2019-04-28] MEDS: PIPERACILLIN/TAZOB 3.375 GM 3.375 GM in DEXTROSE 5%-WATER - 50 ML IVPB SCH ×3 (02:49→17:05)
[2019-04-28 06:53] LABS: BASO % 0.5 % (0-2.0); HEMATOCRIT 34.2 % (32.4-45.2); LYMPH % 5.4 % (8-40); MCHC 32.1 g/dl (32.0-36.0); MEAN CELL VOLUME 90.4 fl (80-96); MEAN PLT VOLUME 9.3 fl (7.5-11.1); MONO % 5.3 % (3.8-10.2); NEUT % 88.8 % (42.8-82.8); PLATELET COUNT 157 K/MM3 (134-434); RBC 3.78 M/mm3 (3.60-5.2); RDW 15.2 % (11.6-15.6)
[2019-04-28 07:19] LABS: BLOOD UREA NITROGEN 16.2 mg/dL (7-18); CALCIUM 8.4 mg/dL (8.5-10.1); CREATININE 1.3 mg/dL (0.55-1.3); POTASSIUM 3.2 mmol/L (3.5-5.1)
[2019-04-28] MEDS ORDERED: FUROSEMIDE 40 MG TABLET (FP) ONE (08:13)
[2019-04-28] MEDS ORDERED: LISINOPRIL 5 MG TABLET (FP) ONE (08:14)
[2019-04-28] MEDS: FUROSEMIDE 40 MG TABLET (FP) PO SCH (09:24)
--- NOTE | 2019-04-28 09:24 | PN ---
Progress Note (short form) - Note Progress Note: 74-year-old female with past medical history of hypertension, hyperlipidemia, afib,on Xarelto, prior failed cardioversions, COPD, systolic , history of pneumonias and cellulitis who presented with a complaint of fever and generalized weakness. On presentation to the ER she was obtunded, tachycardic, hypertensive and found to have a fever of 102.6. Problem List - Problems (1) COPD (chronic obstructive pulmonary disease) Assessment/Plan: no acute exacerbation c/w inhaled bronchodilators standing and prn Code(s): J44.9 - CHRONIC OBSTRUCTIVE PULMONARY DISEASE, UNSPECIFIED (2) Prophylactic measure Assessment/Plan: FEN Fluids: poor PO intake at home . Given IVF in ED Electrolytes: monitor & replete as needed Nutrition: low sodium diet DVT moderate risk xarelto Dispo Maintain as inpatient full code discharge planning Code(s): Z29.9 - ENCOUNTER FOR PROPHYLACTIC MEASURES, UNSPECIFIED (3) Acute metabolic encephalopathy Assessment/Plan: consufed on presnetation to ED most likely r/t febrile state continue to monitor mental status supportive care Code(s): G93.41 - METABOLIC ENCEPHALOPATHY (4) Transaminitis Assessment/Plan: Abdomen US with no acute pathology cont to hold statin avoid hepatotoxic agents hepatic serologies pending GI following Code(s): R74.0 - NONSPEC ELEV OF LEVELS OF TRANSAMNS & LACTIC ACID DEHYDRGNSE (5) Fever Assessment/Plan: afebrile currently continue to monitor c/w zosyn ID following Code(s): R50.9 - FEVER, UNSPECIFIED Qualifiers: Fever type: unspecified Qualified Code(s): R50.9 - Fever, unspecified (6) Sepsis Assessment/Plan: WBC 13, LA 1.0 now c/w zosyn ID following Code(s): A41.9 - SEPSIS, UNSPECIFIED ORGANISM Qualifiers: Sepsis type: sepsis due to unspecified organism Sepsis acute organ dysfunction status: without acute organ dysfunction Qualified Code(s): A41.9 - Sepsis, unspecified organism (7) Afib Assessment/Plan: rate controlled AFib c/w metoprolol c/w rivaroxaban cardiology following Code(s): I48.91 - UNSPECIFIED ATRIAL FIBRILLATION Qualifiers: Atrial fibrillation type: other persistent Qualified Code(s): I48.19 - Other persistent atrial fibrillation (8) Atrial fibrillation with RVR Code(s): I48.91 - UNSPECIFIED ATRIAL FIBRILLATION (9) Hyperlipidemia Assessment/Plan: hold atrovastatin until LFTs trend down Code(s): E78.5 - HYPERLIPIDEMIA, UNSPECIFIED (10) Hypokalemia Assessment/Plan: maintain K >4.0 Code(s): E87.6 - HYPOKALEMIA (11) Acute on chronic systolic and diastolic heart failure, NYHA class 2 Assessment/Plan: c/w metoprolol, lisinopril, and furosemide. increased dose of lisinopril as per cardiology daily weights strict I/Os Code(s): I50.43 - ACUTE ON CHRONIC COMBINED SYSTOLIC AND DIASTOLIC HRT FAIL Visit type - Emergency Visit Emergency Visit: Yes ED Registration Date: 04/27/19 Care time: The patient presented to the Emergency Department on the above date and was hospitalized for further evaluation of their emergent condition. - New Patient This patient is new to me today: Yes Date on this admission: 04/28/19 - Critical Care Critical Care patient: No - Discharge Referral Referred to [facility] No
--- NOTE | 2019-04-28 09:41 | EKG ---
Test Reason : Blood Pressure : / mmHG Vent. Rate : 150 BPM Atrial Rate : 153 BPM P-R Int : 000 ms QRS Dur : 086 ms QT Int : 256 ms P-R-T Axes : 000 038 142 degrees QTc Int : 404 ms ATRIAL FIBRILLATION WITH RAPID VENTRICULAR RESPONSE NONSPECIFIC ST AND T WAVE ABNORMALITY ABNORMAL ECG WHEN COMPARED WITH ECG OF 14-FEB-2019 15:58, NONSPECIFIC T WAVE ABNORMALITY NOW EVIDENT IN INFERIOR LEADS NONSPECIFIC T WAVE ABNORMALITY, WORSE IN LATERAL LEADS Confirmed by Jim Maurice MD ([id number]) on 04/28/2019 9:41:00 AM Referred By: Confirmed By:Jim Maurice MD
[2019-04-28] MEDS ORDERED: LISINOPRIL 5 MG TABLET (FP) PO SCH (10:00)
[2019-04-28] MEDS ORDERED: metoPROLOL SUCCINATE 25 MG TAB.SR.24H (FP) PO SCH (10:00)
--- NOTE | 2019-04-28 11:59 | CON.PULM ---
Consult Consult Specialty:: PULMONARY Referred by:: DRAKE Summers Reason for Consultation:: COPD - History of Present Illness Chief Complaint: fever History of Present Illness: 74yo female with h/o HTN, hyperlipidemia, COPD, atrial fibrillation, LV systolic dysfunction who was admitted with fevers and generalized weakness x 2 days. Reports a cough productive of thick brown sputum and wheezing. No chest pain or discomfort. Denies sick contacts but did travel this past weekend. Febrile to 102.6, lethargic initially on presentation now more alert and able to provide history. Denies history of asthma or COPD but takes nebulizer treatments at home and sees a branch account executive. She is a remote smoker. - History Source History Provided By: Patient, Medical Record Limitations to Obtaining History: No Limitations - Past Medical History Cardio/Vascular: Yes: AFIB, CHF (mild systolic LV dysfunction; + diastolic dysfunction), HTN Pulmonary: Yes: Other (possible Sleep Apnea ). No: Asthma, COPD, O2 Dependent, Pneumonia, Previously Intubated, Pulmonary Embolus, Pulmonary Fibrosis Renal/: Yes: Renal Inusuff Psych: Yes: Other Musculoskeletal: Yes: Chronic low back pain Endocrine: Yes: Hypothyroidism Dermatology: Yes: Cellulitis - Past Surgical History Past Surgical History: Yes: , Hysterectomy, Vein Stripping/Ligation - Alcohol/Substance Use Hx Alcohol Use: No History of Substance Use: reports: None - Smoking History Smoking history: Never smoked Have you smoked in the past 12 months: No If you are a former smoker, when did you quit?: 40 years ago - Social History ADL: Independent 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 Medications - Allergies Allergies/Adverse Reactions: Allergies Allergy/AdvReac Type Severity Reaction Status Date / Time shrimp Allergy Hives Verified 01/31/19 19:06 - Home Medications Home Medications: Ambulatory Orders Levothyroxine Sodium [Synthroid] 125 mcg PO DAILY 04/10/17 Spironolactone [Aldactone] 25 mg PO MOWEFR #20 tablet 11/28/18 Ipratropium 0.02% Nebulizer [Atrovent 0.02% Nebulizer -] 1 neb NEB QID 01/31/19 Ipratropium Edwards [Atrovent Hfa] 2.5 gm IH QID PRN 01/31/19 Furosemide [Lasix -] 40 mg PO DAILY #30 tablet 02/05/19 Lactobacillus Acidophilus [Bacid -] 1 tab PO DAILY #30 tab 02/05/19 Acetaminophen [Tylenol .Regular Strength -] 650 mg PO Q6H PRN tablet 02/21/19 Albuterol Sulfate Inhaler - [Ventolin HFA Inhaler -] 1 - 2 inh PO Q6H PRN #1 inhaler 02/21/19 Amlodipine Besylate [Norvasc -] 10 mg PO DAILY 30 Days #30 tablet 02/21/19 Aspirin Coated [Ecotrin -] 81 mg PO DAILY tablet.ec 02/21/19 Atorvastatin Ca [Lipitor] 40 mg PO HS 30 Days #30 tablet 02/21/19 Ferrous Sulfate [Feosol] 325 mg PO BID #60 ud 02/21/19 Furosemide [Lasix -] 40 mg PO DAILY 30 Days #30 tablet 02/21/19 Lisinopril [Prinivil] 5 mg PO DAILY 30 Days #30 tablet 02/21/19 Metoprolol Succinate [Toprol XL -] 100 mg PO DAILY #30 tab.sr.24h 02/21/19 Rivaroxaban [Xarelto -] 20 mg PO HS 30 Days #30 tablet 02/21/19 Sennosides [Senna -] 1 tab PO HS tablet 02/21/19 Tetrahydrozoline HCl [Visine -] 1 drop OU BID 10 Days #1 drops 02/21/19 Review of Systems - Review of Systems Constitutional: reports: Fever, Weakness Eyes: denies: Recent Change in Vision HENT: reports: Nasal Congestion Neck: denies: Stiffness, Tenderness Cardiovascular: reports: Shortness of Breath. denies: Chest Pain, Palpitations Respiratory: reports: Cough, SOB on Exertion, Wheezing. denies: Hemoptysis Gastrointestinal: denies: Abdominal Pain, Nausea, Vomiting Genitourinary: denies: Dysuria, Hematuria Neurological: denies: Dizziness, Headache Endocrine: denies: Unexplained Weight Loss Physical Exam Vital Sings: Vital Signs Temperature 98.4 F 04/28/19 08:47 Pulse Rate 86 04/28/19 08:47 Respiratory Rate 16 04/28/19 08:47 Blood Pressure 158/74 04/28/19 08:47 O2 Sat by Pulse Oximetry (%) 100 04/28/19 08:47 Constitutional: Yes: Calm Eyes: Yes: Conjunctiva Clear, EOM Intact HENT: Yes: Atraumatic, Normocephalic Neck: Yes: Supple, Trachea Midline Cardiovascular: Yes: Regular Rate and Rhythm Respiratory: Yes: Diminished ...Clubbing: No Gastrointestinal: Yes: Normal Bowel Sounds, Soft. No: Tenderness Edema: Yes Neurological: Yes: Alert, Oriented Labs: CBC, BMP 04/28/19 06:27 04/28/19 06:27 Imaging - Results Chest X-ray: Report Reviewed, Image Reviewed (no infiltrates) Assessment/Plan Suspect Viral Syndrome vs Acute Bronchitis Sepsis Lactic Acidosis Elevated LFTs Atrial Fibrillation LV Systolic Dysfunction COPD HTN Hyperlipidemia - on empiric antibiotics - f/u cultures - IVF - lactate normalized - trend LFTs - inhaled bronchodilators - O2 to keep Spo2 >90% - rate control - continue anticoagulation Thank you for this consult Julius Velazquez MD
[2019-04-28] MEDS ORDERED: ALBUTEROL SO4 0.042% IH SOL 1.25 MG/3 ML VIAL.NEB NEB PRN (12:09)
[2019-04-28] MEDS ORDERED: ALBUTEROL SO4 2.5/IPRATROPIUM 0.5 INH SOL 3 ML VIAL.NEB. NEB ONE (13:27)
[2019-04-28] MEDS: ALBUTEROL SO4 2.5/IPRATROPIUM 0.5 INH SOL 3 ML VIAL.NEB. NEB SCH ×2 (13:38→21:00)
--- NOTE | 2019-04-28 13:43 | CONS ---
GASTROINTESTINAL CONSULTATION DATE OF CONSULTATION: DATE OF DICTATION: 04/28/2019 HISTORY: Mrs. Raheel Zheng is a 74-year-old female with a past medical history of hypertension, hyperlipidemia, atrial fibrillation on Xarelto, failed cardioversion, COPD, pneumonias, and cellulitis in the past who was admitted to the hospital with complaints of fever and generalized weakness as well as a productive cough. During the course, she was noted to have abnormal liver tests. She denies a history of liver disease. No new medications, herbal supplements, or travel out of the country. PAST MEDICAL HISTORY: As per the HPI with the addition of total hysterectomy, rotator cuff repair, and bladder ablation. SOCIAL HISTORY: Does not drink, smoke, or use drugs. ALLERGIES: SHRIMP. HOME MEDICATIONS: Reviewed include Synthroid, Aldactone, nebulizers, Atrovent, Lasix, Lactobacillus, acetaminophen, amlodipine, aspirin, atorvastatin, iron, furosemide, lisinopril, Toprol, Xarelto, Senna. REVIEW OF SYSTEMS: Negative for abdominal pain, nausea, vomiting, hematemesis, melena, constipation, diarrhea. last colonoscopy over ten years ago. PHYSICAL EXAMINATION: Vital Signs: Temperature 98, pulse 86, blood pressure 158/74, respiratory rate 16, oxygen saturation 100% on 2 L. General: In no acute distress. HEENT: Anicteric sclerae. Cardiovascular: S1, S2. Regular rate and rhythm. Lungs: Bilaterally clear anteriorly to auscultation. Abdomen: Obese, nontender. Extremities: With chronic stasis. LABORATORIES: White blood cell count on admission 18, currently 13, hemoglobin 11, hematocrit 34, MCV 157. Sodium 139, potassium 3.2, BUN 16, creatinine 1.3, lactic acid 2.5, currently 1. AST 83, ALT 105, total bilirubin 1.8. BNP 0.02. ProBNP 4476. Troponin 0.02. Urine; 2+ protein. Influenza is negative. Cultures are pending. She had a chest CT scan, which revealed no infiltrate. Mild-to- moderate bilateral lower lobe discoid atelectasis, multichamber cardiomegaly, nonspecific , mildly enlarged mediastinal lymph nodes. Correlation 2-3 months to follow up for stability. IMPRESSION: Transaminitis, mixed pattern. These findings may be multifactorial in origin with underlying nonalcoholic fatty liver disease as well as the current infectious process as contributing factors. Chronic & inherited liver disease will need to be excluded. RECOMMENDATION: Trend LFTs daily while hospitalized. Abdominal sonogram was performed on the and revealed mild hepatomegaly. Avoid hepatotoxic medications. Chronic & inherited liver disease serologies ordered. Abx as per primary medical team; Diet as tolerated. DO BRANDO SALMON/[id number] MTDD
--- NOTE | 2019-04-28 14:03 | CON.ID ---
Consult - Past Medical History Cardio/Vascular: Yes: AFIB, CHF (mild systolic LV dysfunction; + diastolic dysfunction), HTN Pulmonary: Yes: Other (possible Sleep Apnea ). No: Asthma, COPD, O2 Dependent, Pneumonia, Previously Intubated, Pulmonary Embolus, Pulmonary Fibrosis Renal/: Yes: Renal Inusuff Psych: Yes: Other Musculoskeletal: Yes: Chronic low back pain Endocrine: Yes: Hypothyroidism Dermatology: Yes: Cellulitis - Past Surgical History Past Surgical History: Yes: , Hysterectomy, Vein Stripping/Ligation - Alcohol/Substance Use Hx Alcohol Use: No History of Substance Use: reports: None - Smoking History Smoking history: Never smoked Have you smoked in the past 12 months: No If you are a former smoker, when did you quit?: 40 years ago - Social History ADL: Independent 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 Medications - Allergies Allergies/Adverse Reactions: Allergies Allergy/AdvReac Type Severity Reaction Status Date / Time shrimp Allergy Hives Verified 01/31/19 19:06 - Home Medications Home Medications: Ambulatory Orders Levothyroxine Sodium [Synthroid] 125 mcg PO DAILY 04/10/17 Spironolactone [Aldactone] 25 mg PO MOWEFR #20 tablet 11/28/18 Ipratropium 0.02% Nebulizer [Atrovent 0.02% Nebulizer -] 1 neb NEB QID 01/31/19 Ipratropium [place] [Atrovent Hfa] 2.5 gm IH QID PRN 01/31/19 Furosemide [Lasix -] 40 mg PO DAILY #30 tablet 02/05/19 Lactobacillus Acidophilus [Bacid -] 1 tab PO DAILY #30 tab 02/05/19 Acetaminophen [Tylenol .Regular Strength -] 650 mg PO Q6H PRN tablet 02/21/19 Albuterol Sulfate Inhaler - [Ventolin HFA Inhaler -] 1 - 2 inh PO Q6H PRN #1 inhaler 02/21/19 Amlodipine Besylate [Norvasc -] 10 mg PO DAILY 30 Days #30 tablet 02/21/19 Aspirin Coated [Ecotrin -] 81 mg PO DAILY tablet.ec 02/21/19 Atorvastatin Ca [Lipitor] 40 mg PO HS 30 Days #30 tablet 02/21/19 Ferrous Sulfate [Feosol] 325 mg PO BID #60 ud 02/21/19 Furosemide [Lasix -] 40 mg PO DAILY 30 Days #30 tablet 02/21/19 Lisinopril [Prinivil] 5 mg PO DAILY 30 Days #30 tablet 02/21/19 Metoprolol Succinate [Toprol XL -] 100 mg PO DAILY #30 tab.sr.24h 02/21/19 Rivaroxaban [Xarelto -] 20 mg PO HS 30 Days #30 tablet 02/21/19 Sennosides [Senna -] 1 tab PO HS tablet 02/21/19 Tetrahydrozoline HCl [Visine -] 1 drop OU BID 10 Days #1 drops 02/21/19 Physical Exam Vital Signs: Vital Signs Temperature 98.4 F 04/28/19 08:47 Pulse Rate 86 04/28/19 08:47 Respiratory Rate 16 04/28/19 08:47 Blood Pressure 158/74 04/28/19 08:47 O2 Sat by Pulse Oximetry (%) 100 04/28/19 08:47 Labs: CBC, BMP 04/28/19 06:27 04/28/19 06:27
[2019-04-28] MEDS ORDERED: amLODIPine BESYLATE 10 MG TABLET (FP) PO SCH (14:15)
[2019-04-28] MEDS ORDERED: amLODIPine BESYLATE 5 MG TABLET (FP) ONE (14:36)
[2019-04-28] MEDS ORDERED: ASPIRIN COATED 81 MG TABLET.EC ONE (14:36)
[2019-04-28] MEDS: ASPIRIN COATED 81 MG TABLET.EC PO SCH (14:37)
--- NOTE | 2019-04-28 15:22 | CON.CARD ---
Consult Consult Specialty:: cardfiology Reason for Consultation:: fever; weak; hx recent prolonged hospitalization for CHF - History of Present Illness Chief Complaint: Pt A&O; OOB in chair. No chest pain or dyspnea. History of Present Illness: 74-year-old black woman with PM history of hypertension, hyperlipidemia, afib, COPD, CHF (mildly reduced LVEF, mild LVH, mild MR and TR on 02/19 ECHO), morbid obesity, history of pneumonias, PAD, with bilateral LE lymphedema and cellulitis (followed by DR. Ramirez), recently had prolonged stay in [facility] for CHF, now presenting with a complaint of fever and generalized weakness. The daughter states that the patient was doing well this weekend; they had traveled up to [place] to their other house. She developed mild runny nose. The patient denies any other symptoms, including sore throat, body aches, dysuria, diarrhea, nausea, vomiting, chest pain, cough. The daughter mentions the patient did have a history of "influenza" that she self -diagnosed in March. Most of the history is provided by daughter as pt is somewhat somnolent and slow to respond. - History Source History Provided By: Patient, Family Member, Medical Record Limitations to Obtaining History: Other (initially somnolent; weak) - Past Medical History Cardio/Vascular: Yes: AFIB, CHF (mild systolic LV dysfunction; + diastolic dysfunction), HTN Pulmonary: Yes: Other (possible Sleep Apnea ). No: Asthma, COPD, O2 Dependent, Pneumonia, Previously Intubated, Pulmonary Embolus, Pulmonary Fibrosis Renal/: Yes: Renal Inusuff Reproductive: Yes: Postmenopausal ...: No Heme/Onc: No: Anemia Psych: Yes: Other Musculoskeletal: Yes: Chronic low back pain Endocrine: Yes: Hypothyroidism Dermatology: Yes: Cellulitis - Past Surgical History Past Surgical History: Yes: , Hysterectomy, Vein Stripping/Ligation - Alcohol/Substance Use Hx Alcohol Use: No History of Substance Use: reports: None - Smoking History Smoking history: Never smoked Have you smoked in the past 12 months: No If you are a former smoker, when did you quit?: 40 years ago - Social History ADL: Independent 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 Medications - Allergies Allergies/Adverse Reactions: Allergies Allergy/AdvReac Type Severity Reaction Status Date / Time shrimp Allergy Hives Verified 01/31/19 19:06 - Home Medications Home Medications: Ambulatory Orders Levothyroxine Sodium [Synthroid] 125 mcg PO DAILY 04/10/17 Spironolactone [Aldactone] 25 mg PO MOWEFR #20 tablet 11/28/18 Ipratropium 0.02% Nebulizer [Atrovent 0.02% Nebulizer -] 1 neb NEB QID 01/31/19 Ipratropium [place] [Atrovent Hfa] 2.5 gm IH QID PRN 01/31/19 Furosemide [Lasix -] 40 mg PO DAILY #30 tablet 02/05/19 Lactobacillus Acidophilus [Bacid -] 1 tab PO DAILY #30 tab 02/05/19 Acetaminophen [Tylenol .Regular Strength -] 650 mg PO Q6H PRN tablet 02/21/19 Albuterol Sulfate Inhaler - [Ventolin HFA Inhaler -] 1 - 2 inh PO Q6H PRN #1 inhaler 02/21/19 Amlodipine Besylate [Norvasc -] 10 mg PO DAILY 30 Days #30 tablet 02/21/19 Aspirin Coated [Ecotrin -] 81 mg PO DAILY tablet.ec 02/21/19 Atorvastatin Ca [Lipitor] 40 mg PO HS 30 Days #30 tablet 02/21/19 Ferrous Sulfate [Feosol] 325 mg PO BID #60 ud 02/21/19 Furosemide [Lasix -] 40 mg PO DAILY 30 Days #30 tablet 02/21/19 Lisinopril [Prinivil] 5 mg PO DAILY 30 Days #30 tablet 02/21/19 Metoprolol Succinate [Toprol XL -] 100 mg PO DAILY #30 tab.sr.24h 02/21/19 Rivaroxaban [Xarelto -] 20 mg PO HS 30 Days #30 tablet 02/21/19 Sennosides [Senna -] 1 tab PO HS tablet 02/21/19 Tetrahydrozoline HCl [Visine -] 1 drop OU BID 10 Days #1 drops 02/21/19 Family Medical History Family History: Denies Review of Systems - Review of Systems Constitutional: reports: Weakness Eyes: reports: No Symptoms HENT: reports: Nasal Congestion Neck: reports: No Symptoms Cardiovascular: reports: No Symptoms Respiratory: reports: No Symptoms Gastrointestinal: reports: No Symptoms Genitourinary: reports: No Symptoms Breasts: reports: No Symptoms Reported Musculoskeletal: reports: Muscle Weakness Integumentary: reports: No Symptoms Neurological: reports: Weakness Endocrine: reports: No Symptoms Hematology/Lymphatic: reports: No Symptoms Psychiatric: reports: Altered Sleep Pattern - Risk Factors Known Risk Factors: Yes: Age, Hypercholesterolemia, Hypertension, Physical Inactivity, Race, Other (morbid obesity) Vital Signs: Vital Signs Temperature 98.0 F 04/28/19 14:42 Pulse Rate 68 04/28/19 14:42 Respiratory Rate 19 04/28/19 14:42 Blood Pressure 121/87 04/28/19 14:42 O2 Sat by Pulse Oximetry (%) 99 04/28/19 14:42 Constitutional: Yes: Anxious, Obese Eyes: Yes: WNL HENT: Yes: WNL Neck: Yes: WNL Respiratory: Yes: Regular Gastrointestinal: Yes: Soft, Abdomen, Obese Renal/: No: Anuria Cardiovascular: Yes: Pulse Irregular JVD: No Carotid Bruit: No PMI: Non-Displaced Heart Sounds: Yes: S1 (varies in intensity), S2 Murmur: Yes: Systolic Murmur, Grade 2 Musculoskeletal: Yes: Joint Stiffness, Joint Swelling, Muscle Weakness Extremities: Yes: Cool Edema: Yes Edema: LLE: 1+, RLE: 1+ Peripheral Pulses WNL: No Peripheral Pulses: 1+ Left Doralis Pedis, 1+ Right Dorsalis Pedis Integumentary: Yes: Venous Stasis Changes Neurological: Yes: Alert, Oriented Psychiatric: Yes: Alert, Oriented - Other Data Labs, Other Data: CBC, BMP 04/28/19 06:27 04/28/19 06:27 Troponin, BNP 04/27/19 14:53 Troponin I 0.02 B-Natriuretic Peptide 4476.3 H Troponin, BNP 04/27/19 14:53 Troponin I 0.02 B-Natriuretic Peptide 4476.3 H Abnormal Lab Results 04/28/19 04/28/19 06:27 06:27 WBC 13.0 H Absolute Neuts (auto) 11.5 H Neutrophils % 88.8 H Lymphocytes % 5.4 L D Potassium 3.2 L Carbon Dioxide 33 H Anion Gap 4 L Random Glucose 107 H Calcium 8.4 L Echo: Report Reviewed Ejection Fraction %: LVEF > or = 40 % Imaging - Results Chest X-ray: Image Reviewed Cat Scan: Image Reviewed EKG: Image Reviewed Problem List - Problems (1) Altered mental status Assessment/Plan: initially somnolent, with generalized weakness. Now OOB in chair; more alert; still weak. Code(s): R41.82 - ALTERED MENTAL STATUS, UNSPECIFIED Qualifiers: Altered mental status type: unspecified Qualified Code(s): R41.82 - Altered mental status, unspecified (2) Fever Assessment/Plan: On antibiotics per ID. Code(s): R50.9 - FEVER, UNSPECIFIED Qualifiers: Fever type: unspecified Qualified Code(s): R50.9 - Fever, unspecified (3) Hypokalemia Assessment/Plan: Replete, and keep 4.0-4.5 Keep Mg 2.0-2.4 Keep PO4 2.5-4.9. Code(s): E87.6 - HYPOKALEMIA (4) Rapid atrial fibrillation Assessment/Plan: on metoprolol ER for HR control (and systolic CHF)). On rivaroxaban for anticoagulation. Code(s): I48.91 - UNSPECIFIED ATRIAL FIBRILLATION (5) Sepsis Code(s): A41.9 - SEPSIS, UNSPECIFIED ORGANISM Qualifiers: Sepsis type: sepsis due to unspecified organism Sepsis acute organ dysfunction status: without acute organ dysfunction Qualified Code(s): A41.9 - Sepsis, unspecified organism (6) Acute on chronic systolic and diastolic heart failure, NYHA class 2 Assessment/Plan: On metoprolol ER, lisinopril, and furosemide. Will discontinue amlodipine and attempt to increase dose of lisinopril. F/u BUN/Cr, electrolytes, daily kyle, Is and Os. Serial BP and HR> Code(s): I50.43 - ACUTE ON CHRONIC COMBINED SYSTOLIC AND DIASTOLIC HRT FAIL (7) Atrial fibrillation with RVR Assessment/Plan: on metoprolol ER for HR control. On rivaroxaban for anticoagulation. Code(s): I48.91 - UNSPECIFIED ATRIAL FIBRILLATION (8) Cellulitis Code(s): L03.90 - CELLULITIS, UNSPECIFIED Qualifiers: Site of cellulitis: extremity Site of cellulitis of extremity: lower extremity Laterality: left Qualified Code(s): L03.116 - Cellulitis of left lower limb (9) Hyperlipidemia Code(s): E78.5 - HYPERLIPIDEMIA, UNSPECIFIED (10) Morbid obesity Code(s): E66.01 - MORBID (SEVERE) OBESITY DUE TO EXCESS CALORIES (11) Lymphedema of both lower extremities Code(s): I89.0 - LYMPHEDEMA, NOT ELSEWHERE CLASSIFIED (12) Elevated lactic acid level Code(s): R79.89 - OTHER SPECIFIED ABNORMAL FINDINGS OF BLOOD CHEMISTRY
[2019-04-28] MEDS ORDERED: ALBUTEROL SO4 2.5/IPRATROPIUM 0.5 INH SOL 3 ML VIAL.NEB. NEB SCH (16:00)
[2019-04-28] MEDS: RIVAROXABAN 20 MG TABLET PO SCH (17:44)
[2019-04-28] MEDS: TETRAHYDROZOLINE HCL EYE DROPS OU SCH (23:35)
[2019-04-29] MEDS ORDERED: PIPERACILLIN/TAZOBACTAM 3.375 GM VIAL IVPB ONE ×3 (01:06→16:14)
[2019-04-29] MEDS ORDERED: DEXTROSE 5%-WATER - 50 ML IVPB ONE ×3 (01:06→16:14)
[2019-04-29] MEDS: PIPERACILLIN/TAZOB 3.375 GM 3.375 GM in DEXTROSE 5%-WATER - 50 ML IVPB SCH ×3 (01:11→19:01)
[2019-04-29] MEDS: ALBUTEROL SO4 2.5/IPRATROPIUM 0.5 INH SOL 3 ML VIAL.NEB. NEB SCH ×3 (07:39→20:46)
--- NOTE | 2019-04-29 09:36 | PN ---
Progress Note (short form) - Note Progress Note: CBC, BMP 04/28/19 06:27 04/28/19 06:27 Vital Signs Period Temp Pulse Resp BP Sys/Ray Pulse Ox Last 24 Hr 98 F-98.8 F 68-98 19-22 121-159/76-87 98-100 s1s2 rrr lungs cta abd soft non tender chr venous stasis awake alert oriented x3 nonfocal fever ?uti chest abdomen is negative clinically looks well parox afib CHF ef~45-50%with diastolic dysfunction hTN high cholesterol lymphedema hypothyroidism abx as per id dc planningwithin 24 hours PT eval continue other home medication
[2019-04-29] MEDS ORDERED: LEVOTHYROXINE NA 125 MCG TABLET (FP) PO ONE (10:00)
[2019-04-29] MEDS: LACTOBACILLUS ACIDOPHILUS 1 TABLET PO SCH (10:24)
[2019-04-29] MEDS: ASPIRIN COATED 81 MG TABLET.EC PO SCH (10:24)
[2019-04-29] MEDS: TETRAHYDROZOLINE HCL EYE DROPS OU SCH ×2 (10:25→22:55)
[2019-04-29] MEDS: LISINOPRIL 5 MG TABLET (FP) PO SCH (10:49)
[2019-04-29] MEDS: FUROSEMIDE 40 MG TABLET (FP) PO SCH (10:49)
--- NOTE | 2019-04-29 12:43 | PN ---
Progress Note, Physician History of Present Illness: patient doing better afebrile now - Current Medication List Current Medications: Active Medications Acetaminophen (Tylenol -) 650 mg PO Q4H PRN PRN Reason: FEVER Albuterol Sulfate (Ventolin 0.042trength) -) 1 amp NEB Q4H PRN PRN Reason: SHORT OF BREATH/WHEEZING Albuterol/Ipratropium (Duoneb -) 1 amp NEB RTID [facility] Last Admin: 04/29/19 07:39 Dose: 1 amp Aspirin (Ecotrin -) 81 mg PO DAILY [facility] Last Admin: 04/29/19 10:24 Dose: 81 mg Furosemide (Lasix -) 40 mg PO DAILY [facility] Last Admin: 04/29/19 10:49 Dose: 40 mg Piperacillin Sod/Tazobactam (Sod 3.375 gm/ Dextrose) 50 mls @ 100 mls/hr IVPB Q8H-IV [facility]; Protocol Last Admin: 04/29/19 10:50 Dose: 100 mls/hr Lactobacillus Acidophilus (Bacid -) 1 tab PO DAILY [facility] Last Admin: 04/29/19 10:24 Dose: 1 tab Levothyroxine Sodium (Synthroid -) 125 mcg PO DAILY@0700 [facility] Lisinopril (Prinivil) 10 mg PO DAILY [facility] Last Admin: 04/29/19 10:49 Dose: 10 mg Metoprolol Succinate (Toprol Xl -) 100 mg PO DAILY [facility] Last Admin: 04/29/19 10:49 Dose: 100 mg Rivaroxaban (Xarelto) 20 mg PO 1800 [facility] Last Admin: 04/28/19 17:44 Dose: 20 mg Tetrahydrozoline HCl (Visine -) 1 drop OU BID [facility] Last Admin: 04/29/19 10:25 Dose: 1 drop - Objective Vital Signs: Vital Signs Temperature 98.2 F 04/29/19 10:25 Pulse Rate 87 04/29/19 10:25 Respiratory Rate 20 04/29/19 10:25 Blood Pressure 127/64 04/29/19 10:25 O2 Sat by Pulse Oximetry (%) 98 04/29/19 09:00 Constitutional: Yes: No Distress, Calm Cardiovascular: Yes: S1, S2 Respiratory: Yes: Regular, CTA Bilaterally Gastrointestinal: Yes: Normal Bowel Sounds, Soft Musculoskeletal: Yes: WNL Extremities: Yes: Other Neurological: Yes: Alert, Oriented Psychiatric: Yes: Alert, Oriented Labs: CBC, BMP 04/28/19 06:27 04/28/19 06:27 Assessment/Plan uti Sepsis Lactic Acidosis Elevated LFTs Atrial Fibrillation LV Systolic Dysfunction COPD HTN Hyperlipidemia patients urine has come positive will await for organisms continue abx rest as per the team
--- NOTE | 2019-04-29 12:44 | PN ---
Progress Note, Physician History of Present Illness: 74-year-old black woman with PM history of hypertension, hyperlipidemia, afib, COPD, CHF (mildly reduced LVEF, mild LVH, mild MR and TR on 02/19 ECHO), morbid obesity, history of pneumonias, PAD, with bilateral LE lymphedema and cellulitis (followed by DR. Ramirez), recently had prolonged stay in [facility] for CHF, now presenting with a complaint of fever and generalized weakness. The daughter states that the patient was doing well this weekend; they had traveled up to [place] to their other house. She developed mild runny nose. The patient denies any other symptoms, including sore throat, body aches, dysuria, diarrhea, nausea, vomiting, chest pain, cough. The daughter mentions the patient did have a history of "influenza" that she self -diagnosed in March. Most of the history is provided by daughter as pt is somewhat somnolent and slow to respond. - Current Medication List Current Medications: Active Medications Acetaminophen (Tylenol -) 650 mg PO Q4H PRN PRN Reason: FEVER Albuterol Sulfate (Ventolin 0.042trength) -) 1 amp NEB Q4H PRN PRN Reason: SHORT OF BREATH/WHEEZING Albuterol/Ipratropium (Duoneb -) 1 amp NEB RTID [facility] Last Admin: 04/29/19 07:39 Dose: 1 amp Aspirin (Ecotrin -) 81 mg PO DAILY [facility] Last Admin: 04/29/19 10:24 Dose: 81 mg Furosemide (Lasix -) 40 mg PO DAILY [facility] Last Admin: 04/29/19 10:49 Dose: 40 mg Piperacillin Sod/Tazobactam (Sod 3.375 gm/ Dextrose) 50 mls @ 100 mls/hr IVPB Q8H-IV [facility]; Protocol Last Admin: 04/29/19 10:50 Dose: 100 mls/hr Lactobacillus Acidophilus (Bacid -) 1 tab PO DAILY [facility] Last Admin: 04/29/19 10:24 Dose: 1 tab Levothyroxine Sodium (Synthroid -) 125 mcg PO DAILY@0700 [facility] Lisinopril (Prinivil) 10 mg PO DAILY [facility] Last Admin: 04/29/19 10:49 Dose: 10 mg Metoprolol Succinate (Toprol Xl -) 100 mg PO DAILY [facility] Last Admin: 04/29/19 10:49 Dose: 100 mg Rivaroxaban (Xarelto) 20 mg PO 1800 [facility] Last Admin: 04/28/19 17:44 Dose: 20 mg Tetrahydrozoline HCl (Visine -) 1 drop OU BID [facility] Last Admin: 04/29/19 10:25 Dose: 1 drop - Objective Vital Signs: Vital Signs Temperature 98.2 F 04/29/19 10:25 Pulse Rate 87 04/29/19 10:25 Respiratory Rate 20 04/29/19 10:25 Blood Pressure 127/64 04/29/19 10:25 O2 Sat by Pulse Oximetry (%) 98 04/29/19 09:00 Eyes: Yes: WNL, Conjunctiva Clear, EOM Intact HENT: Yes: WNL, Atraumatic, Normocephalic Neck: Yes: WNL, Supple, Trachea Midline Cardiovascular: Yes: WNL, Regular Rate and Rhythm Respiratory: Yes: WNL, Regular, CTA Bilaterally Gastrointestinal: Yes: WNL, Normal Bowel Sounds Genitourinary: Yes: WNL Musculoskeletal: Yes: WNL Edema: Yes Integumentary: Yes: WNL Neurological: Yes: WNL, Alert, Oriented ...Motor Strength: WNL Psychiatric: Yes: WNL Labs: CBC, BMP 04/28/19 06:27 04/28/19 06:27 Assessment/Plan - Problems (1) Altered mental status Assessment/Plan: initially somnolent, with generalized weakness. Now OOB in chair; more alert; still weak. Code(s): R41.82 - ALTERED MENTAL STATUS, UNSPECIFIED Qualifiers: Altered mental status type: unspecified Qualified Code(s): R41.82 - Altered mental status, unspecified (2) Fever Assessment/Plan: On antibiotics per ID. Code(s): R50.9 - FEVER, UNSPECIFIED Qualifiers: Fever type: unspecified Qualified Code(s): R50.9 - Fever, unspecified (3) Hypokalemia Assessment/Plan: Replete, and keep 4.0-4.5 Keep Mg 2.0-2.4 Keep PO4 2.5-4.9. Code(s): E87.6 - HYPOKALEMIA (4) Rapid atrial fibrillation Assessment/Plan: on metoprolol ER for HR control (and systolic CHF)). On rivaroxaban for anticoagulation. Code(s): I48.91 - UNSPECIFIED ATRIAL FIBRILLATION (5) Sepsis Code(s): A41.9 - SEPSIS, UNSPECIFIED ORGANISM Qualifiers: Sepsis type: sepsis due to unspecified organism Sepsis acute organ dysfunction status: without acute organ dysfunction Qualified Code(s): A41.9 - Sepsis, unspecified organism (6) Acute on chronic systolic and diastolic heart failure, NYHA class 2 Assessment/Plan: On metoprolol ER, lisinopril, and furosemide. Will discontinue amlodipine and attempt to increase dose of lisinopril. F/u BUN/Cr, electrolytes, daily kyle, Is and Os. Serial BP and HR> Code(s): I50.43 - ACUTE ON CHRONIC COMBINED SYSTOLIC AND DIASTOLIC HRT FAIL (7) Atrial fibrillation with RVR Assessment/Plan: on metoprolol ER for HR control. On rivaroxaban for anticoagulation. Code(s): I48.91 - UNSPECIFIED ATRIAL FIBRILLATION (8) Cellulitis Code(s): L03.90 - CELLULITIS, UNSPECIFIED Qualifiers: Site of cellulitis: extremity Site of cellulitis of extremity: lower extremity Laterality: left Qualified Code(s): L03.116 - Cellulitis of left lower limb (9) Hyperlipidemia Code(s): E78.5 - HYPERLIPIDEMIA, UNSPECIFIED (10) Morbid obesity Code(s): E66.01 - MORBID (SEVERE) OBESITY DUE TO EXCESS CALORIES (11) Lymphedema of both lower extremities Code(s): I89.0 - LYMPHEDEMA, NOT ELSEWHERE CLASSIFIED (12) Elevated lactic acid level Code(s): R79.89 - OTHER SPECIFIED ABNORMAL FINDINGS OF BLOOD CHEMISTRY
--- NOTE | 2019-04-29 13:25 | PN ---
Progress Note (short form) - Note Progress Note: For follow up for elevated liver chemistries (ALT>AST; total bilrubin also elevated). Feels fine. No pruritus. No icterus. Abd soft, ND/NT, no appreciable HSM. Awaiting viral and immune test results for altered liver chemistries Avoid hepatotoxins in meantime
--- NOTE | 2019-04-29 14:12 | PN ---
Progress Note, Physician History of Present Illness: pulmonary alert,comfortable oob-chair,dyspnea improving,less cough - Current Medication List Current Medications: Active Medications Acetaminophen (Tylenol -) 650 mg PO Q4H PRN PRN Reason: FEVER Albuterol Sulfate (Ventolin 0.042trength) -) 1 amp NEB Q4H PRN PRN Reason: SHORT OF BREATH/WHEEZING Albuterol/Ipratropium (Duoneb -) 1 amp NEB RTID [facility] Last Admin: 04/29/19 07:39 Dose: 1 amp Aspirin (Ecotrin -) 81 mg PO DAILY [facility] Last Admin: 04/29/19 10:24 Dose: 81 mg Furosemide (Lasix -) 40 mg PO DAILY [facility] Last Admin: 04/29/19 10:49 Dose: 40 mg Piperacillin Sod/Tazobactam (Sod 3.375 gm/ Dextrose) 50 mls @ 100 mls/hr IVPB Q8H-IV [facility]; Protocol Last Admin: 04/29/19 10:50 Dose: 100 mls/hr Lactobacillus Acidophilus (Bacid -) 1 tab PO DAILY [facility] Last Admin: 04/29/19 10:24 Dose: 1 tab Levothyroxine Sodium (Synthroid -) 125 mcg PO DAILY@0700 [facility] Lisinopril (Prinivil) 10 mg PO DAILY [facility] Last Admin: 04/29/19 10:49 Dose: 10 mg Metoprolol Succinate (Toprol Xl -) 100 mg PO DAILY [facility] Last Admin: 04/29/19 10:49 Dose: 100 mg Rivaroxaban (Xarelto) 20 mg PO 1800 [facility] Last Admin: 04/28/19 17:44 Dose: 20 mg Tetrahydrozoline HCl (Visine -) 1 drop OU BID [facility] Last Admin: 04/29/19 10:25 Dose: 1 drop - Objective Vital Signs: Vital Signs Temperature 98.2 F 04/29/19 10:25 Pulse Rate 87 04/29/19 10:25 Respiratory Rate 20 04/29/19 10:25 Blood Pressure 127/64 04/29/19 10:25 O2 Sat by Pulse Oximetry (%) 98 04/29/19 09:00 Constitutional: Yes: Well Nourished, Calm Eyes: Yes: WNL HENT: Yes: WNL Neck: Yes: WNL Cardiovascular: Yes: Pulse Irregular, S1, S2 Respiratory: Yes: CTA Bilaterally Gastrointestinal: Yes: Normal Bowel Sounds, Soft Extremities: Yes: WNL Edema: Yes Labs: CBC, BMP 04/28/19 06:27 Problem List - Problems (1) Bronchitis Code(s): J40 - BRONCHITIS, NOT SPECIFIED ACUTE OR CHRONIC (2) COPD (chronic obstructive pulmonary disease) Code(s): J44.9 - CHRONIC OBSTRUCTIVE PULMONARY DISEASE, UNSPECIFIED (3) Elevated lactic acid level Code(s): R79.89 - OTHER SPECIFIED ABNORMAL FINDINGS OF BLOOD CHEMISTRY (4) Sepsis Code(s): A41.9 - SEPSIS, UNSPECIFIED ORGANISM Qualifiers: Sepsis type: sepsis due to unspecified organism Sepsis acute organ dysfunction status: without acute organ dysfunction Qualified Code(s): A41.9 - Sepsis, unspecified organism (5) Afib Code(s): I48.91 - UNSPECIFIED ATRIAL FIBRILLATION Qualifiers: Atrial fibrillation type: other persistent Qualified Code(s): I48.19 - Other persistent atrial fibrillation (6) Respiratory distress Code(s): R06.03 - ACUTE RESPIRATORY DISTRESS (7) UTI (urinary tract infection) Code(s): N39.0 - URINARY TRACT INFECTION, SITE NOT SPECIFIED Qualifiers: Urinary tract infection type: site unspecified Hematuria presence: without hematuria Qualified Code(s): N39.0 - Urinary tract infection, site not specified (8) HTN (hypertension) Code(s): I10 - ESSENTIAL (PRIMARY) HYPERTENSION Qualifiers: Hypertension type: essential hypertension Qualified Code(s): I10 - Essential (primary) hypertension Assessment/Plan Assessment/Plan Suspect Viral Syndrome vs Acute Bronchitis improving Sepsis Lactic Acidosis Elevated LFTs Atrial Fibrillation LV Systolic Dysfunction COPD HTN Hyperlipidemia - on empiric antibiotics - IVF - lactate normalized - trend LFTs - inhaled bronchodilators - O2 to keep Spo2 >90% - rate control - continue anticoagulation DR BENOIT
[2019-04-29] MEDS: RIVAROXABAN 20 MG TABLET PO SCH (17:15)
[2019-04-29] MEDS: ACETAMINOPHEN 325 MG TABLET (FP) PO PRN (21:41)
[2019-04-30] MEDS: PIPERACILLIN/TAZOB 3.375 GM 3.375 GM in DEXTROSE 5%-WATER - 50 ML IVPB SCH ×3 (02:01→17:28)
[2019-04-30] MEDS ORDERED: PIPERACILLIN/TAZOBACTAM 3.375 GM VIAL IVPB ONE ×3 (02:18→17:22)
[2019-04-30] MEDS ORDERED: DEXTROSE 5%-WATER - 50 ML IVPB ONE ×3 (02:19→17:22)
[2019-04-30] MEDS: LEVOTHYROXINE NA 125 MCG TABLET (FP) PO SCH (06:16)
[2019-04-30 07:19] LABS: BASO % 0.3 % (0-2.0); EOS % 1.7 % (0-4.5); HEMATOCRIT 32.8 % (32.4-45.2); HEMOGLOBIN 10.8 GM/dL (10.7-15.3); LYMPH % 17.5 % (8-40); MCH 29.6 pg (25.7-33.7); MCHC 32.9 g/dl (32.0-36.0); MEAN CELL VOLUME 89.9 fl (80-96); MEAN PLT VOLUME 9.5 fl (7.5-11.1); MONO % 9.3 % (3.8-10.2); NEUT % 71.2 % (42.8-82.8); PLATELET COUNT 156 K/MM3 (134-434); RBC 3.65 M/mm3 (3.60-5.2); RDW 15.1 % (11.6-15.6); WHITE BLOOD COUNT 8.2 K/mm3 (4.0-10.0)
[2019-04-30] MEDS: ALBUTEROL SO4 2.5/IPRATROPIUM 0.5 INH SOL 3 ML VIAL.NEB. NEB SCH ×3 (08:10→20:31)
[2019-04-30 08:27] LABS: ALBUMIN 2.8 g/dl (3.4-5.0); BILIRUBIN,TOTAL 0.7 mg/dL (0.2-1); CALCIUM 8.6 mg/dL (8.5-10.1); CREATININE 1.1 mg/dL (0.55-1.3); POTASSIUM 3.2 mmol/L (3.5-5.1); TOT PROT 6.8 g/dl (6.4-8.2)
--- NOTE | 2019-04-30 09:24 | PN ---
Progress Note, Physician History of Present Illness: stable no new issues - Current Medication List Current Medications: Active Medications Acetaminophen (Tylenol -) 650 mg PO Q4H PRN PRN Reason: FEVER Last Admin: 04/29/19 21:41 Dose: 650 mg Albuterol Sulfate (Ventolin 0.042trength) -) 1 amp NEB Q4H PRN PRN Reason: SHORT OF BREATH/WHEEZING Last Admin: 04/29/19 22:19 Dose: 1 amp Albuterol/Ipratropium (Duoneb -) 1 amp NEB RTID [facility] Last Admin: 04/29/19 20:46 Dose: Not Given Aspirin (Ecotrin -) 81 mg PO DAILY [facility] Last Admin: 04/29/19 10:24 Dose: 81 mg Furosemide (Lasix -) 40 mg PO DAILY [facility] Last Admin: 04/29/19 10:49 Dose: 40 mg Piperacillin Sod/Tazobactam (Sod 3.375 gm/ Dextrose) 50 mls @ 100 mls/hr IVPB Q8H-IV [facility]; Protocol Last Admin: 04/30/19 02:01 Dose: 100 mls/hr Lactobacillus Acidophilus (Bacid -) 1 tab PO DAILY [facility] Last Admin: 04/29/19 10:24 Dose: 1 tab Levothyroxine Sodium (Synthroid -) 125 mcg PO DAILY@0700 [facility] Last Admin: 04/30/19 06:16 Dose: 125 mcg Lisinopril (Prinivil) 10 mg PO DAILY [facility] Last Admin: 04/29/19 10:49 Dose: 10 mg Metoprolol Succinate (Toprol Xl -) 100 mg PO DAILY [facility] Last Admin: 04/29/19 10:49 Dose: 100 mg Rivaroxaban (Xarelto) 20 mg PO 1800 [facility] Last Admin: 04/29/19 17:15 Dose: 20 mg Tetrahydrozoline HCl (Visine -) 1 drop OU BID [facility] Last Admin: 04/29/19 22:55 Dose: 1 drop - Objective Vital Signs: Vital Signs Temperature 98.1 F 04/30/19 06:00 Pulse Rate 74 04/30/19 06:00 Respiratory Rate 20 04/30/19 06:00 Blood Pressure 141/76 04/30/19 06:00 O2 Sat by Pulse Oximetry (%) 98 04/29/19 21:00 Constitutional: Yes: No Distress, Calm Cardiovascular: Yes: S1, S2 Respiratory: Yes: Regular, CTA Bilaterally Gastrointestinal: Yes: Normal Bowel Sounds, Soft Musculoskeletal: Yes: WNL Extremities: Yes: WNL Neurological: Yes: Alert, Oriented Psychiatric: Yes: Alert, Oriented Labs: CBC, BMP 04/30/19 05:55 04/30/19 05:55 Assessment/Plan uti Sepsis Lactic Acidosis Elevated LFTs Atrial Fibrillation LV Systolic Dysfunction COPD HTN Hyperlipidemia plan continue abx await for urine cx rest as per the team incentive donnie
[2019-04-30] MEDS: LACTOBACILLUS ACIDOPHILUS 1 TABLET PO SCH (10:03)
[2019-04-30] MEDS: FUROSEMIDE 40 MG TABLET (FP) PO SCH (10:03)
[2019-04-30] MEDS: LISINOPRIL 5 MG TABLET (FP) PO SCH ×2 (10:03→12:00)
[2019-04-30] MEDS: ASPIRIN COATED 81 MG TABLET.EC PO SCH (10:04)
[2019-04-30] MEDS: TETRAHYDROZOLINE HCL EYE DROPS OU SCH ×2 (10:05→22:01)
--- NOTE | 2019-04-30 10:23 | PN ---
Progress Note (short form) - Note Progress Note: PULMONARY Feeling better. Less short of breath. Cough clearing. No fevers. Vital Signs Period Temp Pulse Resp BP Sys/Ray Pulse Ox Last 24 Hr 98.1 F-98.5 F 74-96 19-20 127-153/64-76 98 Gen: less tachypneic Heart: RRR Lung: scattered rhonchi Abd: soft, nontender Ext: chronic changes CBC, BMP 04/30/19 05:55 04/30/19 05:55 Active Medications Acetaminophen (Tylenol -) 650 mg PO Q4H PRN PRN Reason: FEVER Last Admin: 04/29/19 21:41 Dose: 650 mg Albuterol Sulfate (Ventolin 0.042trength) -) 1 amp NEB Q4H PRN PRN Reason: SHORT OF BREATH/WHEEZING Last Admin: 04/29/19 22:19 Dose: 1 amp Albuterol/Ipratropium (Duoneb -) 1 amp NEB RTID [facility] Last Admin: 04/29/19 20:46 Dose: Not Given Aspirin (Ecotrin -) 81 mg PO DAILY [facility] Last Admin: 04/30/19 10:04 Dose: 81 mg Furosemide (Lasix -) 40 mg PO DAILY [facility] Last Admin: 04/30/19 10:03 Dose: 40 mg Piperacillin Sod/Tazobactam (Sod 3.375 gm/ Dextrose) 50 mls @ 100 mls/hr IVPB Q8H-IV [facility]; Protocol Last Admin: 04/30/19 10:03 Dose: 100 mls/hr Lactobacillus Acidophilus (Bacid -) 1 tab PO DAILY [facility] Last Admin: 04/30/19 10:03 Dose: 1 tab Levothyroxine Sodium (Synthroid -) 125 mcg PO DAILY@0700 [facility] Last Admin: 04/30/19 06:16 Dose: 125 mcg Lisinopril (Prinivil) 10 mg PO DAILY [facility] Last Admin: 04/29/19 10:49 Dose: 10 mg Metoprolol Succinate (Toprol Xl -) 100 mg PO DAILY [facility] Last Admin: 04/30/19 10:03 Dose: 100 mg Rivaroxaban (Xarelto) 20 mg PO 1800 [facility] Last Admin: 04/29/19 17:15 Dose: 20 mg Tetrahydrozoline HCl (Visine -) 1 drop OU BID [facility] Last Admin: 04/30/19 10:05 Dose: 1 drop A/P Suspect Viral Syndrome vs Acute Bronchitis UTI Sepsis Lactic Acidosis Elevated LFTs Atrial Fibrillation LV Systolic Dysfunction COPD HTN Hyperlipidemia - on antibiotics - inhaled bronchodilators - O2 to keep Spo2 >90% - rate control - continue anticoagulation
--- NOTE | 2019-04-30 10:46 | PN ---
Progress Note (short form) - Note Progress Note: CBC, BMP 04/30/19 05:55 04/30/19 05:55 Vital Signs Period Temp Pulse Resp BP Sys/Ray Pulse Ox Last 24 Hr 98.1 F-98.5 F 74-96 19-20 134-153/68-76 98 s1s2 rrr lungs cta abd soft non tender chr venous stasis awake alert oriented x3 nonfocal fever ?uti chest abdomen is negative clinically looks well parox afib CHF ef~45-50%with diastolic dysfunction hTN high cholesterol lymphedema hypothyroidism abx as per id dc planningwithin 24 hours once culture results are back PT eval continue other home medication
--- NOTE | 2019-04-30 11:45 | PN ---
Progress Note, Physician Chief Complaint: Pt A&OX3; OOB in chair; no chest pain or dyspnea. She wonders if she is getting UTIs from fecal contamination (plans on a colonoscopy). History of Present Illness: 74-year-old black woman with PM history of hypertension, hyperlipidemia, afib, COPD, CHF (mildly reduced LVEF, mild LVH, mild MR and TR on 02/19 ECHO), morbid obesity, history of pneumonias, PAD, with bilateral LE lymphedema and cellulitis (followed by DR. Ramirez), recently had prolonged stay in [facility] for CHF, now presenting with a complaint of fever and generalized weakness. The daughter states that the patient was doing well this weekend; they had traveled up to [place] to their other house. She developed mild runny nose. The patient denies any other symptoms, including sore throat, body aches, dysuria, diarrhea, nausea, vomiting, chest pain, cough. The daughter mentions the patient did have a history of "influenza" that she self -diagnosed in March. Most of the history is provided by daughter as pt is somewhat somnolent and slow to respond. - Current Medication List Current Medications: Active Medications Acetaminophen (Tylenol -) 650 mg PO Q4H PRN PRN Reason: FEVER Last Admin: 04/29/19 21:41 Dose: 650 mg Albuterol Sulfate (Ventolin 0.042trength) -) 1 amp NEB Q4H PRN PRN Reason: SHORT OF BREATH/WHEEZING Last Admin: 04/29/19 22:19 Dose: 1 amp Albuterol/Ipratropium (Duoneb -) 1 amp NEB RTID [facility] Last Admin: 04/30/19 08:10 Dose: Not Given Aspirin (Ecotrin -) 81 mg PO DAILY [facility] Last Admin: 04/30/19 10:04 Dose: 81 mg Furosemide (Lasix -) 40 mg PO DAILY [facility] Last Admin: 04/30/19 10:03 Dose: 40 mg Piperacillin Sod/Tazobactam (Sod 3.375 gm/ Dextrose) 50 mls @ 100 mls/hr IVPB Q8H-IV [facility]; Protocol Last Admin: 04/30/19 10:03 Dose: 100 mls/hr Lactobacillus Acidophilus (Bacid -) 1 tab PO DAILY [facility] Last Admin: 04/30/19 10:03 Dose: 1 tab Levothyroxine Sodium (Synthroid -) 125 mcg PO DAILY@0700 [facility] Last Admin: 04/30/19 06:16 Dose: 125 mcg Lisinopril (Prinivil) 10 mg PO DAILY [facility] Last Admin: 04/29/19 10:49 Dose: 10 mg Metoprolol Succinate (Toprol Xl -) 100 mg PO DAILY [facility] Last Admin: 04/30/19 10:03 Dose: 100 mg Rivaroxaban (Xarelto) 20 mg PO 1800 [facility] Last Admin: 04/29/19 17:15 Dose: 20 mg Tetrahydrozoline HCl (Visine -) 1 drop OU BID [facility] Last Admin: 04/30/19 10:05 Dose: 1 drop - Objective Vital Signs: Vital Signs Temperature 98.1 F 04/30/19 06:00 Pulse Rate 74 04/30/19 06:00 Respiratory Rate 20 04/30/19 06:00 Blood Pressure 141/76 04/30/19 06:00 O2 Sat by Pulse Oximetry (%) 98 04/29/19 21:00 Constitutional: Yes: Calm, Obese Eyes: Yes: WNL HENT: Yes: WNL Neck: Yes: WNL Cardiovascular: Yes: Pulse Irregular, Murmur (2/6 systolic murmur, LSB-->apex), S1 (varies in intensity), S2 Respiratory: Yes: Regular Gastrointestinal: Yes: Soft, Abdomen, Obese ...Rectal Exam: Yes: Deferred Genitourinary: No: Anuria Breast(s): Yes: WNL Musculoskeletal: Yes: Joint Stiffness, Muscle Weakness Extremities: Yes: Cool Edema: Yes Edema: LLE: 2+, RLE: 2+ Peripheral Pulses WNL: Yes Integumentary: Yes: Venous Stasis Changes, Other (rough, indurated LEs to knees) Neurological: Yes: Alert, Oriented, Weakness Psychiatric: Yes: WNL Labs: CBC, BMP 04/30/19 05:55 04/30/19 05:55 Abnormal Lab Results 04/30/19 05:55 Potassium 3.2 L Albumin 2.8 L - ....Imaging Chest X-ray: Image Reviewed EKG: Image Reviewed Problem List - Problems (1) Altered mental status Assessment/Plan: Now A&Ox3; Code(s): R41.82 - ALTERED MENTAL STATUS, UNSPECIFIED Qualifiers: Altered mental status type: unspecified Qualified Code(s): R41.82 - Altered mental status, unspecified (2) Fever Assessment/Plan: On antibiotics per ID. Await cultures; discharge planning if negative. Code(s): R50.9 - FEVER, UNSPECIFIED Qualifiers: Fever type: unspecified Qualified Code(s): R50.9 - Fever, unspecified (3) Hypokalemia Assessment/Plan: Replete (3.2 today), and keep 4.0-4.5 Keep Mg 2.0-2.4 Keep PO4 2.5-4.9. Code(s): E87.6 - HYPOKALEMIA (4) Rapid atrial fibrillation Assessment/Plan: on metoprolol ER for HR control (and systolic CHF)). On rivaroxaban for anticoagulation. Code(s): I48.91 - UNSPECIFIED ATRIAL FIBRILLATION (5) Sepsis Code(s): A41.9 - SEPSIS, UNSPECIFIED ORGANISM Qualifiers: Sepsis type: sepsis due to unspecified organism Sepsis acute organ dysfunction status: without acute organ dysfunction Qualified Code(s): A41.9 - Sepsis, unspecified organism (6) Acute on chronic systolic and diastolic heart failure, NYHA class 2 Assessment/Plan: On metoprolol ER, lisinopril (dose increased; pt wants to take lisinopril at night, thinking it controls her BP better), and furosemide. F/u BUN/Cr, electrolytes, daily kyle, Is and Os. Serial BP and HR> Code(s): I50.43 - ACUTE ON CHRONIC COMBINED SYSTOLIC AND DIASTOLIC HRT FAIL (7) Atrial fibrillation with RVR Assessment/Plan: on metoprolol ER for HR control. On rivaroxaban for anticoagulation. Code(s): I48.91 - UNSPECIFIED ATRIAL FIBRILLATION (8) Cellulitis Code(s): L03.90 - CELLULITIS, UNSPECIFIED Qualifiers: Site of cellulitis: extremity Site of cellulitis of extremity: lower extremity Laterality: left Qualified Code(s): L03.116 - Cellulitis of left lower limb (9) Hyperlipidemia Code(s): E78.5 - HYPERLIPIDEMIA, UNSPECIFIED (10) Morbid obesity Assessment/Plan: On Metformin at home (denies diabetes; sees an earthmoving plant operator; pt says she is on the medcation "probably for weight loss"). Code(s): E66.01 - MORBID (SEVERE) OBESITY DUE TO EXCESS CALORIES (11) Lymphedema of both lower extremities Assessment/Plan: On lisinopril; on furosemide. F/u with vascular surgeon (Dr. Ramirez); sees him as outpatient. Code(s): I89.0 - LYMPHEDEMA, NOT ELSEWHERE CLASSIFIED (12) Elevated lactic acid level Code(s): R79.89 - OTHER SPECIFIED ABNORMAL FINDINGS OF BLOOD CHEMISTRY (13) [place] cardiac risk >20% in next 10 years Assessment/Plan: F/u prior records. Stress MIBI if not done recently (may be done as an outpatient). Code(s): Z91.89 - OTH PERSONAL RISK FACTORS, NOT ELSEWHERE CLASSIFIED (14) Elevated LFTs Assessment/Plan: Now WNL; may require MRCP as outpatient. Code(s): R94.5 - ABNORMAL RESULTS OF LIVER FUNCTION STUDIES
[2019-04-30 12:10] LABS: TRANSGLUTAMINASE IGA < 2 U/mL (0-3); TRANSGLUTAMINASE IGG < 2 U/mL (0-5)
[2019-04-30] MEDS ORDERED: POTASSIUM CHLORIDE ORAL LIQUID 20 MEQ/15 ML PO ONE (12:15)
[2019-04-30] MEDS ORDERED: LISINOPRIL 10 MG TABLET (FP) PO SCH ×2 (12:15→22:00)
--- NOTE | 2019-04-30 13:46 | PN.GI ---
GI Progress Note Subjective: No abdominal pain Receiving nebulizer treatment LFTs normalized - Objective Vital Signs: Vital Signs Temperature 98.1 F 04/30/19 06:00 Pulse Rate 74 04/30/19 06:00 Respiratory Rate 04/30/19 06:00 Blood Pressure 141/76 04/30/19 06:00 O2 Sat by Pulse Oximetry (%) 98 04/29/19 21:00 Constitutional: Calm Eyes: No: Sclera Icterus Cardiovascular: Yes: Regular Rate and Rhythm Respiratory: Yes: Wheezes (blaterally) ...Auscultate: Yes: Normoactive Bowel Sounds ...Palpate: Yes: Soft. No: Hepatomegaly, Splenomegaly, Tenderness Extremities: Yes: Other (Stasis changes) Edema: LLE: 2+, RLE: 2+ Neurological: Yes: Alert Labs: CBC, BMP 04/30/19 05:55 04/30/19 05:55 Laboratory Tests 04/27/19 04/28/19 04/29/19 19:05 13:26 06:10 Tiss Transglutamin IgG < 2 Tiss Transglutamin IgA < 2 Hep A IgM Ab Confirm Negative Hep Bs Antigen Negative Hep B Core IgM Ab Negative Hepatitis C Ab (EIA) <0.1 Influenza A (Rapid) Negative Influenza B (Rapid) Negative Problem List - Problems (1) Abnormal liver function tests Assessment/Plan: LFTs have normalized When able, MRCP to evaluate CBD Patient requesting outpatient follow-up With Dr. Oquendo when acute issues are resolved Code(s): R94.5 - ABNORMAL RESULTS OF LIVER FUNCTION STUDIES
[2019-04-30 13:54] VITALS: BMI 41.5
[2019-04-30] MEDS: ACETAMINOPHEN 325 MG TABLET (FP) PO PRN (14:05)
--- NOTE | 2019-04-30 14:06 | EKG ---
Test Reason : Blood Pressure : / mmHG Vent. Rate : 067 BPM Atrial Rate : 120 BPM P-R Int : 000 ms QRS Dur : 092 ms QT Int : 430 ms P-R-T Axes : 000 030 110 degrees QTc Int : 454 ms ATRIAL FIBRILLATION WITH PREMATURE VENTRICULAR OR ABERRANTLY CONDUCTED COMPLEXES T WAVE ABNORMALITY, CONSIDER LATERAL ISCHEMIA ABNORMAL ECG WHEN COMPARED WITH ECG OF 27-APR-2019 14:02, VENT. RATE HAS DECREASED BY [address] NO LONGER DEPRESSED IN LATERAL LEADS T WAVE AMPLITUDE HAS DECREASED IN ANTERIOR LEADS Confirmed by VALENTINA ARAUJO MD ([id number]) on 04/30/2019 2:05:47 PM Referred By: Confirmed By:VALENTINA ARAUJO MD
[2019-04-30 14:51] LABS: PHOSPHOROUS 3.8 mg/dL (2.5-4.9)
[2019-04-30] MEDS ORDERED: POTASSIUM CHLORIDE TABS 20 MEQ TABLET.ER (FP) PO ONE (15:11)
[2019-04-30] MEDS ORDERED: RIVAROXABAN 20 MG TABLET PO SCH (22:00)
[2019-05-01] MEDS ORDERED: PIPERACILLIN/TAZOBACTAM 3.375 GM VIAL IVPB ONE ×2 (01:44→09:27)
[2019-05-01] MEDS ORDERED: DEXTROSE 5%-WATER - 50 ML IVPB ONE ×2 (01:44→09:27)
[2019-05-01] MEDS: PIPERACILLIN/TAZOB 3.375 GM 3.375 GM in DEXTROSE 5%-WATER - 50 ML IVPB SCH ×3 (01:52→19:00)
[2019-05-01] MEDS: LEVOTHYROXINE NA 125 MCG TABLET (FP) PO SCH (05:59)
[2019-05-01 06:20] VITALS: TEMP 98.1
[2019-05-01 06:39] LABS: ALBUMIN 3.1 g/dl (3.4-5.0); BILIRUBIN,DIRECT 0.2 mg/dL (0.0-0.2); BILIRUBIN,TOTAL 0.5 mg/dL (0.2-1); TOT PROT 7.2 g/dl (6.4-8.2)
[2019-05-01] MEDS: ALBUTEROL SO4 2.5/IPRATROPIUM 0.5 INH SOL 3 ML VIAL.NEB. NEB SCH ×2 (08:40→14:00)
[2019-05-01] MEDS ORDERED: LEVOTHYROXINE NA 125 MCG TABLET (FP) PO SCH (08:44)
--- NOTE | 2019-05-01 08:46 | PN ---
Progress Note (short form) - Note Progress Note: CBC, BMP Vital Signs Period Temp Pulse Resp BP Sys/Ray Pulse Ox Last 24 Hr 98 F-98.5 F 67-85 18-20 128-158/41-94 94-94 s1s2 rrr lungs cta abd soft non tender chr venous stasis with edema awake alert oriented x3 nonfocal UTI: urine+ ecoli and klebsiella parox afib CHF ef~45-50%with diastolic dysfunction hTN high cholesterol lymphedema hypothyroidism dc planning today resume spironolcatone PT eval continue other home medication needs outpt f/up
--- NOTE | 2019-05-01 08:48 | DS ---
Physical Examination Vital Signs: Vital Signs Temperature 98.1 F 05/01/19 06:18 Pulse Rate 78 05/01/19 06:18 Respiratory Rate 18 05/01/19 06:18 Blood Pressure 158/78 05/01/19 06:18 O2 Sat by Pulse Oximetry (%) 94 L 04/30/19 21:00 Constitutional: Yes: Calm, Obese Eyes: Yes: Conjunctiva Clear HENT: Yes: Normocephalic Neck: Yes: Trachea Midline Cardiovascular: Yes: Regular Rate and Rhythm Respiratory: Yes: CTA Bilaterally Musculoskeletal: Yes: WNL Edema: Yes Edema: LLE: 1+, RLE: 1+ Peripheral Pulses WNL: Yes Neurological: Yes: WNL Labs: CBC, BMP 04/30/19 05:55 04/30/19 05:55 Discharge Summary Problems reviewed: Yes Reason For Visit: FEVER SEPSIS RAPID AFIB Current Active Problems Abnormal liver function tests (Acute) Acute metabolic encephalopathy (Acute) Altered mental status (Acute) Bronchitis (Acute) COPD (chronic obstructive pulmonary disease) (Acute) Elevated LFTs (Acute) Elevated lactic acid level (Acute) Fever (Acute) [place] cardiac risk >20% in next 10 years (Acute) Hypokalemia (Acute) Prophylactic measure (Acute) Rapid atrial fibrillation (Acute) Sepsis (Acute) Systolic heart failure (Acute) Transaminitis (Acute) Hospital Course: admitted for fever and encephalopathy: UTI: urine+ ecoli and klebsiella, clnincally much improved with iv zosyn ct abd pelvis and chest unremarkable PMH: parox afib CHF ef~45-50%with diastolic dysfunction hTN high cholesterol lymphedema hypothyroidism medically stable, leukocytosis resolved, hemodinamically stable to dc home on oral keflex and f/up as outpt next week Condition: Stable - Instructions Referrals: Feli Oquendo DO [Staff Physician] - Monique Vaughan MD [Primary Care Provider] - Disposition: HOME - Home Medications Comprehensive Discharge Medication List: Ambulatory Orders Levothyroxine Sodium [Synthroid] 125 mcg PO DAILY 04/10/17 Spironolactone [Aldactone] 25 mg PO MOWEFR #20 tablet 11/28/18 Ipratropium 0.02% Nebulizer [Atrovent 0.02% Nebulizer -] 1 neb NEB QID 01/31/19 Ipratropium [facility] [Atrovent Hfa] 2.5 gm IH QID PRN 01/31/19 Furosemide [Lasix -] 40 mg PO DAILY #30 tablet 02/05/19 Lactobacillus Acidophilus [Bacid -] 1 tab PO DAILY #30 tab 02/05/19 Acetaminophen [Tylenol .Regular Strength -] 650 mg PO Q6H PRN tablet 02/21/19 Albuterol Sulfate Inhaler - [Ventolin HFA Inhaler -] 1 - 2 inh PO Q6H PRN #1 inhaler 02/21/19 Amlodipine Besylate [Norvasc -] 10 mg PO DAILY 30 Days #30 tablet 02/21/19 Aspirin Coated [Ecotrin -] 81 mg PO DAILY tablet.ec 02/21/19 Atorvastatin Ca [Lipitor] 40 mg PO HS 30 Days #30 tablet 02/21/19 Ferrous Sulfate [Feosol] 325 mg PO BID #60 ud 02/21/19 Furosemide [Lasix -] 40 mg PO DAILY 30 Days #30 tablet 02/21/19 Lisinopril [Prinivil] 5 mg PO DAILY 30 Days #30 tablet 02/21/19 Metoprolol Succinate [Toprol XL -] 100 mg PO DAILY #30 tab.sr.24h 02/21/19 Rivaroxaban [Xarelto -] 20 mg PO HS 30 Days #30 tablet 02/21/19 Sennosides [Senna -] 1 tab PO HS tablet 02/21/19 Tetrahydrozoline HCl [Visine -] 1 drop OU BID 10 Days #1 drops 02/21/19
[2019-05-01] MEDS: ASPIRIN COATED 81 MG TABLET.EC PO SCH (09:52)
[2019-05-01] MEDS: LACTOBACILLUS ACIDOPHILUS 1 TABLET PO SCH (09:52)
[2019-05-01] MEDS: TETRAHYDROZOLINE HCL EYE DROPS OU SCH (09:53)
[2019-05-01] MEDS ORDERED: SPIRONOLACTONE 25 MG TABLET (FP) PO SCH (10:00)
[2019-05-01] MEDS ORDERED: FUROSEMIDE 40 MG TABLET (FP) PO SCH (10:00)
--- NOTE | 2019-05-01 11:11 | PN ---
Progress Note, Physician History of Present Illness: 74-year-old black woman with PM history of hypertension, hyperlipidemia, afib, COPD, CHF (mildly reduced LVEF, mild LVH, mild MR and TR on 02/19 ECHO), morbid obesity, history of pneumonias, PAD, with bilateral LE lymphedema and cellulitis (followed by DR. Ramirez), recently had prolonged stay in [facility] for CHF, now presenting with a complaint of fever and generalized weakness. The daughter states that the patient was doing well this weekend; they had traveled up to [place] to their other house. She developed mild runny nose. The patient denies any other symptoms, including sore throat, body aches, dysuria, diarrhea, nausea, vomiting, chest pain, cough. The daughter mentions the patient did have a history of "influenza" that she self -diagnosed in March. Most of the history is provided by daughter as pt is somewhat somnolent and slow to respond. - Current Medication List Current Medications: Active Medications Acetaminophen (Tylenol -) 650 mg PO Q4H PRN PRN Reason: FEVER Last Admin: 04/30/19 14:05 Dose: 650 mg Albuterol Sulfate (Ventolin 0.042trength) -) 1 amp NEB Q4H PRN PRN Reason: SHORT OF BREATH/WHEEZING Last Admin: 04/29/19 22:19 Dose: 1 amp Albuterol/Ipratropium (Duoneb -) 1 amp NEB RTID [facility] Last Admin: 04/30/19 20:31 Dose: 1 amp Aspirin (Ecotrin -) 81 mg PO DAILY [facility] Last Admin: 05/01/19 09:52 Dose: 81 mg Furosemide (Lasix -) 40 mg PO DAILY [facility] Last Admin: 05/01/19 09:52 Dose: 40 mg Piperacillin Sod/Tazobactam (Sod 3.375 gm/ Dextrose) 50 mls @ 100 mls/hr IVPB Q8H-IV [facility]; Protocol Last Admin: 05/01/19 09:53 Dose: 100 mls/hr Lactobacillus Acidophilus (Bacid -) 1 tab PO DAILY [facility] Last Admin: 05/01/19 09:52 Dose: 1 tab Levothyroxine Sodium 112 mcg/ (Levothyroxine Sodium 25 mcg) 137 mcg PO DAILY@ 0700 [facility] Lisinopril (Prinivil) 10 mg PO HS [facility] Last Admin: 04/30/19 22:00 Dose: 10 mg Metoprolol Succinate (Toprol Xl -) 100 mg PO DAILY [facility] Last Admin: 05/01/19 09:51 Dose: 100 mg Rivaroxaban (Xarelto) [address] [facility] Last Admin: 04/30/19 22:01 Dose: 20 mg Spironolactone (Aldactone -) 25 mg PO MoWeFr@1000 [facility] Last Admin: 05/01/19 09:52 Dose: 25 mg Tetrahydrozoline HCl (Visine -) 1 drop OU BID [facility] Last Admin: 05/01/19 09:53 Dose: 1 drop - Objective Vital Signs: Vital Signs Temperature 98.1 F 05/01/19 06:18 Pulse Rate 78 05/01/19 06:18 Respiratory Rate 18 05/01/19 06:18 Blood Pressure 158/78 05/01/19 06:18 O2 Sat by Pulse Oximetry (%) 94 L 04/30/19 21:00 Eyes: Yes: WNL, Conjunctiva Clear, EOM Intact HENT: Yes: WNL, Atraumatic, Normocephalic Neck: Yes: WNL, Supple, Trachea Midline Cardiovascular: Yes: WNL, Regular Rate and Rhythm Respiratory: Yes: WNL, Regular, CTA Bilaterally Gastrointestinal: Yes: WNL, Normal Bowel Sounds Genitourinary: Yes: WNL Musculoskeletal: Yes: WNL Extremities: Yes: WNL Edema: Yes Integumentary: Yes: WNL Neurological: Yes: WNL, Alert, Oriented ...Motor Strength: WNL Psychiatric: Yes: WNL Labs: CBC, BMP 04/30/19 05:55 04/30/19 05:55 Assessment/Plan - Problems (1) Altered mental status Assessment/Plan: Now A&Ox3; Code(s): R41.82 - ALTERED MENTAL STATUS, UNSPECIFIED Qualifiers: Altered mental status type: unspecified Qualified Code(s): R41.82 - Altered mental status, unspecified (2) Fever Assessment/Plan: On antibiotics per ID. Await cultures; discharge planning if negative. Code(s): R50.9 - FEVER, UNSPECIFIED Qualifiers: Fever type: unspecified Qualified Code(s): R50.9 - Fever, unspecified (3) Hypokalemia Assessment/Plan: Replete (3.2 today), and keep 4.0-4.5 Keep Mg 2.0-2.4 Keep PO4 2.5-4.9. Code(s): E87.6 - HYPOKALEMIA (4) Rapid atrial fibrillation Assessment/Plan: on metoprolol ER for HR control (and systolic CHF)). On rivaroxaban for anticoagulation. Code(s): I48.91 - UNSPECIFIED ATRIAL FIBRILLATION (5) Sepsis Code(s): A41.9 - SEPSIS, UNSPECIFIED ORGANISM Qualifiers: Sepsis type: sepsis due to unspecified organism Sepsis acute organ dysfunction status: without acute organ dysfunction Qualified Code(s): A41.9 - Sepsis, unspecified organism (6) Acute on chronic systolic and diastolic heart failure, NYHA class 2 Assessment/Plan: On metoprolol ER, lisinopril (dose increased; pt wants to take lisinopril at night, thinking it controls her BP better), and furosemide. F/u BUN/Cr, electrolytes, daily kyle, Is and Os. Serial BP and HR> Code(s): I50.43 - ACUTE ON CHRONIC COMBINED SYSTOLIC AND DIASTOLIC HRT FAIL (7) Atrial fibrillation with RVR Assessment/Plan: on metoprolol ER for HR control. On rivaroxaban for anticoagulation. Code(s): I48.91 - UNSPECIFIED ATRIAL FIBRILLATION (8) Cellulitis Code(s): L03.90 - CELLULITIS, UNSPECIFIED Qualifiers: Site of cellulitis: extremity Site of cellulitis of extremity: lower extremity Laterality: left Qualified Code(s): L03.116 - Cellulitis of left lower limb (9) Hyperlipidemia Code(s): E78.5 - HYPERLIPIDEMIA, UNSPECIFIED (10) Morbid obesity Assessment/Plan: On Metformin at home (denies diabetes; sees an mechanic general operational test; pt says she is on the medcation "probably for weight loss"). Code(s): E66.01 - MORBID (SEVERE) OBESITY DUE TO EXCESS CALORIES (11) Lymphedema of both lower extremities Assessment/Plan: On lisinopril; on furosemide. F/u with vascular surgeon (Dr. Ramirez); sees him as outpatient. Code(s): I89.0 - LYMPHEDEMA, NOT ELSEWHERE CLASSIFIED (12) Elevated lactic acid level Code(s): R79.89 - OTHER SPECIFIED ABNORMAL FINDINGS OF BLOOD CHEMISTRY (13) [place] cardiac risk >20% in next 10 years Assessment/Plan: F/u prior records. Stress MIBI if not done recently (may be done as an outpatient). Code(s): Z91.89 - OTH PERSONAL RISK FACTORS, NOT ELSEWHERE CLASSIFIED (14) Elevated LFTs Assessment/Plan: Now WNL; may require MRCP as outpatient. Code(s): R94.5 - ABNORMAL RESULTS OF LIVER FUNCTION STUDIES
--- NOTE | 2019-05-01 11:18 | PN ---
Progress Note, Physician History of Present Illness: stable feels much better - Current Medication List Current Medications: Active Medications Acetaminophen (Tylenol -) 650 mg PO Q4H PRN PRN Reason: FEVER Last Admin: 04/30/19 14:05 Dose: 650 mg Albuterol Sulfate (Ventolin 0.042trength) -) 1 amp NEB Q4H PRN PRN Reason: SHORT OF BREATH/WHEEZING Last Admin: 04/29/19 22:19 Dose: 1 amp Albuterol/Ipratropium (Duoneb -) 1 amp NEB RTID [facility] Last Admin: 04/30/19 20:31 Dose: 1 amp Aspirin (Ecotrin -) 81 mg PO DAILY [facility] Last Admin: 05/01/19 09:52 Dose: 81 mg Furosemide (Lasix -) 40 mg PO DAILY [facility] Last Admin: 05/01/19 09:52 Dose: 40 mg Piperacillin Sod/Tazobactam (Sod 3.375 gm/ Dextrose) 50 mls @ 100 mls/hr IVPB Q8H-IV [facility]; Protocol Last Admin: 05/01/19 09:53 Dose: 100 mls/hr Lactobacillus Acidophilus (Bacid -) 1 tab PO DAILY [facility] Last Admin: 05/01/19 09:52 Dose: 1 tab Levothyroxine Sodium 112 mcg/ (Levothyroxine Sodium 25 mcg) 137 mcg PO DAILY@ 0700 [facility] Lisinopril (Prinivil) 10 mg PO HS [facility] Last Admin: 04/30/19 22:00 Dose: 10 mg Metoprolol Succinate (Toprol Xl -) 100 mg PO DAILY [facility] Last Admin: 05/01/19 09:51 Dose: 100 mg Rivaroxaban (Xarelto) 20 mg PO HS [facility] Last Admin: 04/30/19 22:01 Dose: 20 mg Spironolactone (Aldactone -) 25 mg PO MoWeFr@1000 [facility] Last Admin: 05/01/19 09:52 Dose: 25 mg Tetrahydrozoline HCl (Visine -) 1 drop OU BID [facility] Last Admin: 05/01/19 09:53 Dose: 1 drop - Objective Vital Signs: Vital Signs Temperature 98.1 F 05/01/19 06:18 Pulse Rate 78 05/01/19 06:18 Respiratory Rate 18 05/01/19 06:18 Blood Pressure 158/78 05/01/19 06:18 O2 Sat by Pulse Oximetry (%) 94 L 04/30/19 21:00 Constitutional: Yes: No Distress, Calm Cardiovascular: Yes: S1, S2 Respiratory: Yes: Regular, CTA Bilaterally Gastrointestinal: Yes: Normal Bowel Sounds, Soft Musculoskeletal: Yes: WNL Extremities: Yes: WNL Neurological: Yes: Alert, Oriented Psychiatric: Yes: Alert, Oriented Labs: CBC, BMP 04/30/19 05:55 04/30/19 05:55 Assessment/Plan uti Sepsis Lactic Acidosis Elevated LFTs Atrial Fibrillation LV Systolic Dysfunction COPD HTN Hyperlipidemia plan can change to oral abx rest as per the team
[2019-05-01 15:28] VITALS: PULSE 67
[2019-05-01 15:52] VITALS: BP 154/81
[2019-05-02] MEDS ORDERED: LEVOTHYROXINE 112 MCG, LEVOTHYROXINE 25 MCG PO SCH (07:00)
== END 2019-05-01 18:55 | disposition home health service (06) | DRG 871 ==
LOC: SUPCPDRO 13:29 → JER 13:29 → JERBED 19:25 → J7W 04-28 22:50
PROVIDERS: ADMIT Internal Medicine; ATTEND Internal Medicine
DX: A41.9 Sepsis, unspecified organism (principal); G93.41 Metabolic encephalopathy; I50.22 Chronic systolic (congestive) heart failure; I48.19 Other persistent atrial fibrillation; E87.2 Acidosis; Z68.41 Body mass index [BMI] 40.0-44.9, adult; J44.0 Chronic obstructive pulmonary disease with (acute) lower respiratory infection; N39.0 Urinary tract infection, site not specified; E78.5 Hyperlipidemia, unspecified; I11.0 Hypertensive heart disease with heart failure; E03.9 Hypothyroidism, unspecified; Z87.440 Personal history of urinary (tract) infections; Z79.01 Long term (current) use of anticoagulants; R74.0 Nonspecific elevation of levels of transaminase and lactic acid dehydrogenase [LDH]; E87.6 Hypokalemia; E66.01 Morbid (severe) obesity due to excess calories; I89.0 Lymphedema, not elsewhere classified; J20.9 Acute bronchitis, unspecified; R94.5 Abnormal results of liver function studies; B96.1 Klebsiella pneumoniae [K. pneumoniae] as the cause of diseases classified elsewhere; I48.0 Paroxysmal atrial fibrillation
CPT/HCPCS: 36415; 71045-TC-FY; 71250-TC; 76705-TC; 80048; 80053; 80074; 80076; 81003; 82103; 82803; 83516; 83605; 83735; 83880; 84100; 84484; 85025; 86038; 87040; 87086; 87186; 87804; 93005; 93010; 94640; 99291; J0131